=== PATIENT | female | born 1975 | race Caucasian/White ===

== ENCOUNTER 2016-08-08 17:08 | Observation (INO) | payer MEDICARE, OTHER ==
[2016-08-08] MEDS ORDERED: NITROGLYCERIN OINT 1 INCH/GM PACKET TOPICAL STA (17:39)
[2016-08-08] MEDS ORDERED: NITROGLYCERIN SL TABS 0.4 MG TAB SUBLINGUAL STA (17:39)
[2016-08-08] MEDS ORDERED: ASPIRIN 81 MG CHEW PO STA (17:39)
--- NOTE | 2016-08-08 17:44 | ED ---
Chest Pain HPI - General Chief Complaint: Chest Pain Stated Complaint: chest pain Time Seen by Provider: 08/08/16 17:16 Source: patient Mode of arrival: ambulatory Limitations: no limitations - History of Present Illness Initial Comments: This patient is a 40-year-old woman with history of previous coronary artery disease who presents with chest pain that is been going on since this morning. The patient states she has been having what she is referring to his anginal episodes a couple of times a day for nearly 1 week. She states she had pain recurred this morning and it has been present for the whole day. The pain is left chest, constant, aching, was about 8 out of 10. She states that the pain improved to between 2-4 out of 10 following the nitroglycerin. The patient has had some associated dyspnea. MD Complaint: chest pain Onset/Timin -: hour(s) Onset: during rest Pain Location: left chest Pain Radiation: none Severity scale (1-10): 8 Quality: aching Consistency: constant Improves With: nitroglycerin Worsens With: nothing Anginal Symptoms: dyspnea Treatments Prior to Arrival: nitroglycerin - Related Data Home Medications Medication Instructions Recorded Confirmed Aspirin 325 mg PO DAILY 08/08/16 08/08/16 Atorvastatin [Lipitor] 80 mg PO DAILY 08/08/16 08/08/16 HYDROcodone/APAP 10-325MG [[place] 1 tab PO TID PRN 08/08/16 08/08/16 10-325] Previous Rx's Medication Instructions Recorded Ticagrelor [Brilinta] 90 mg PO BID #60 tab 03/04/15 Allergies Allergy/AdvReac Type Severity Reaction Status Date / Time moxifloxacin HCl Allergy Rash/Hives Verified 08/08/16 17:34 [From Avelox] Review of Systems ROS Statement: Those systems with pertinent positive or pertinent negative responses have been documented in the HPI. ROS Other: All systems not noted in ROS Statement are negative. Constitutional: Denies: fever, chills Respiratory: Reports: dyspnea. Denies: cough, wheezes, hemoptysis Cardiovascular: Reports: chest pain. Denies: palpitations, dyspnea on exertion , orthopnea, edema, syncope Gastrointestinal: Denies: abdominal pain, nausea, vomiting Genitourinary: Denies: dysuria, hematuria Musculoskeletal: Denies: back pain Skin: Denies: rash Neurological: Denies: headache, weakness, numbness EKG Findings - EKG Results: EKG: interpreted by ERMD, sinus rhythm (Rate 90 bpm), normal axis, normal ST/T - SC, Pacemaker, Normal: Myocardial infarction: anterior SC (old age or indeterminate) (EKG shows possible old anterior infarct) Past Medical History Past Medical History: Coronary Artery Disease (CAD), Chest Pain / Angina, Fibromyalgia, GERD/Reflux, Hyperlipidemia, Myocardial Infarction ([place]), Osteoarthritis (OA), Pneumonia Additional Past Medical History / Comment(s): [place] X2, severe CAD, lumbar DDD, lumbar facet arthropathy, low back pain, obesity, arthiritis, past medical records indicate HTN and migraines but pt denies. Last Myocardial Infarction Date:: 03/02/15 History of Any Multi-Drug Resistant Organisms: None Reported Past Surgical History: Heart Catheterization, Heart Catheterization With Stent Additional Past Surgical History / Comment(s): 03/03/15 PTCA with stent to RCA. Other SX HX: 2003 LAD stent, 2008 RCA with 3 stents, 2008 PDA stent, 2009 CX stent, 2010 proximal diag stent, 2012 OM stent, 2014 stent 2 to RCA ,several PAIN CLINIC PROCEDURES Past Anesthesia/Blood Transfusion Reactions: No Reported Reaction Date of Last Stent Placement:: 03/03/15 Past Psychological History: Anxiety, Bipolar, Depression Additional Psychological History / Comment(s): Pt lives with boyfriend. She is independent. She uses no assistive devices or ome care. She drives. Smoking Status: Former smoker Past Alcohol Use History: Occasional Additional Past Alcohol Use History / Comment(s): Pt states she started smoking in 1988 and smokes about 1 ppd. She occasionally drinks alcohol, less that 7 per week. Past Drug Use History: None Reported - Past Family History Mother Family Medical History: Coronary Artery Disease (CAD), Fibromyalgia, Hyperlipidemia Additional Family Medical History / Comment(s): heart disease Father Family Medical History: CVA/TIA, Fibromyalgia, Hyperlipidemia, Hypertension, Musculoskeletal Disorder Additional Family Medical History / Comment(s): MS Sister(s) History Unknown: Yes (Patient has 1 sister with alive and well. Patient has 3 children that are alive and well.) General Exam Limitations: no limitations General appearance: alert, in no apparent distress Head exam: Present: atraumatic, normocephalic Eye exam: Present: normal appearance. Absent: scleral icterus, conjunctival injection ENT exam: Present: normal oropharynx Neck exam: Present: normal inspection, full ROM Respiratory exam: Present: normal lung sounds bilaterally. Absent: respiratory distress, wheezes, rales, rhonchi, stridor Cardiovascular Exam: Present: regular rate, normal rhythm, normal heart sounds. Absent: systolic murmur, diastolic murmur, rubs, gallop GI/Abdominal exam: Present: soft. Absent: distended, tenderness, guarding, rebound, mass Extremities exam: Present: normal inspection, normal capillary refill. Absent: pedal edema, calf tenderness Back exam: Absent: CVA tenderness (R), CVA tenderness (L) Neurological exam: Present: alert Skin exam: Present: warm, dry, intact, normal color. Absent: rash, cyanosis, diaphoretic, erythema, petechiae, pallor, mottled Course Vital Signs 08/08/16 08/08/16 08/08/16 17:13 17:27 17:50 Temperature 98.0 F Pulse Rate 97 89 Pulse Rate [ 94 Right Radial] Respiratory 18 18 Rate Blood Pressure 140/95 121/84 O2 Sat by Pulse 98 98 Oximetry Disposition Clinical Impression: Chest pain Disposition: ADMITTED IP TO THIS HOSP Condition: Fair
[2016-08-08 17:52] LABS: Basophils # (A) 0.1 k/uL (0-0.2); Basophils % (A) 1 %; CH 32.6; CHCM 34.6; Eosinophils # (A) 0.2 k/uL (0-0.7); Eosinophils % (A) 1 %; HCT 43.9 % (34.0-46.0); HDW 2.38; HGB 14.6 gm/dL (11.4-16.0); Luc # (Auto) 0.15; Luc % (Auto) 1; Lymphocytes # (A) 2.3 k/uL (1.0-4.8); Lymphocytes % (A) 16 %; MCH 31.5 pg (25.0-35.0); MCHC 33.2 g/dL (31.0-37.0); MCV 94.8 fL (80.0-100.0); Monocytes # (A) 0.7 k/uL (0-1.0); Monocytes % (A) 5 %; Neutrophils # (A) 10.8 k/uL (1.3-7.7); Neutrophils % (A) 76 %; RBC 4.64 m/uL (3.80-5.40); RDW 13.8 % (11.5-15.5); WBC 14.2 k/uL (3.8-10.6); WBC (Perox) 14.57
[2016-08-08 17:57] LABS: ALT 42 U/L (9-52); AST 22 U/L (14-36); Alkaline Phosphatase 110 U/L (38-126); Anion Gap 11 mmol/L; Blood Urea Nitrogen 11 mg/dL (7-17); Calcium 9.7 mg/dL (8.4-10.2); Carbon Dioxide 25 mmol/L (22-30); Chloride 102 mmol/L (98-107); Glucose 117 mg/dL (74-99); Magnesium 1.7 mg/dL (1.6-2.3); Non-African American GFR(MDRD) >60 (>60 ml/min/1.73 sqM); Potassium 3.7 mmol/L (3.5-5.1); Sodium 138 mmol/L (137-145); Total Bilirubin 0.5 mg/dL (0.2-1.3); Total Protein 7.5 g/dL (6.3-8.2)
[2016-08-08 18:12] LABS: Creatine Kinase 46 U/L (30-135)
[2016-08-08 18:14] LABS: INR 0.9 (<1.1); Partial Thromboplastin Time 23.5 sec (22.0-30.0); Prothrombin Time 9.5 sec (9.0-12.0)
--- NOTE | 2016-08-08 18:21 | XR ---
EXAMINATION TYPE: XR chest 1V portable DATE OF EXAM: 08/08/2016 6:11 PM COMPARISON: 10/02/2013 HISTORY: Chest pain TECHNIQUE: Single frontal view of the chest is obtained. FINDINGS: Heart and mediastinum are normal. Lungs are clear. Diaphragm is normal. Bony thorax and so ft tissues appear normal. IMPRESSION: Normal chest. No change.
[2016-08-08 18:25] LABS: Creatine Kinase MB 0.5 ng/mL (0.0-2.4); Troponin I <0.012 ng/mL (0.000-0.034)
[2016-08-08] MEDS ORDERED: NITROGLYCERIN SL TABS 0.4 MG TAB SUBLINGUAL PRN (18:38)
[2016-08-08] MEDS: HYDROcodone/APAP 10-325MG 1 EACH TAB PO PRN (20:25)
[2016-08-08] MEDS: TICAGRELOR 90 MG TAB PO SCH (20:26)
[2016-08-08] MEDS ORDERED: ATORVASTATIN 80 MG TAB PO SCH (21:00)
[2016-08-09 00:28] LABS: Creatine Kinase 32 U/L (30-135)
[2016-08-09 00:41] LABS: Creatine Kinase MB 0.4 ng/mL (0.0-2.4); Troponin I <0.012 ng/mL (0.000-0.034)
[2016-08-09] MEDS: HYDROcodone/APAP 10-325MG 1 EACH TAB PO PRN ×2 (05:35→13:48)
[2016-08-09 05:58] LABS: Cholesterol 182 mg/dL (<200); Creatine Kinase 30 U/L (30-135); HDL Cholesterol 46 mg/dL (40-60); Triglycerides 114 mg/dL (<150)
[2016-08-09 06:11] LABS: Creatine Kinase MB 0.3 ng/mL (0.0-2.4); Troponin I <0.012 ng/mL (0.000-0.034)
--- NOTE | 2016-08-09 08:52 | P.CRDCN ---
History of Present Illness Consult date: 08/09/16 Chief complaint: Chest discomfort History of present illness: This is a pleasant 40-year-old female patient who sees Dr. VC Correia as an outpatient with a past medical history significant for coronary artery disease and prior stenting of the RCA, left circumflex, and LAD, hypertension, dyslipidemia, and history of smoking, presented to the hospital complaining of chest discomfort. She describes a one week history of intermittent episodes of chest discomfort, in the mid of the chest, as a pressure on the chest, without any radiation and without any associated symptoms. Each episode lasts about 1 minute only. She stated that the discomfort in a way similar to what she had before the stent and sometimes is different from what she had before the stent. The EKG showed sinus mechanism without any significant ST or T-wave abnormalities. The cardiac enzymes came in to be unremarkable. I am going to proceed with an exercise Cardiolite stress test and follow-up with the patient. Past Medical History Past Medical History: Coronary Artery Disease (CAD), Chest Pain / Angina, Fibromyalgia, GERD/Reflux, Hyperlipidemia, Myocardial Infarction ([place]), Osteoarthritis (OA), Pneumonia Additional Past Medical History / Comment(s): [place] X2, severe CAD, lumbar DDD, lumbar facet arthropathy, low back pain, obesity, arthiritis,occ migraine, past medical records indicate HTN but pt denies. Last Myocardial Infarction Date:: 03/02/15 History of Any Multi-Drug Resistant Organisms: None Reported Past Surgical History: Heart Catheterization, Heart Catheterization With Stent Additional Past Surgical History / Comment(s): 03/03/15 PTCA with stent to RCA. Other SX HX: 2003 LAD stent, 2008 RCA with 3 stents, 2008 PDA stent, 2009 CX stent, 2010 proximal diag stent, 2012 OM stent, 2014 stent 2 to RCA ,several PAIN CLINIC PROCEDURES Past Anesthesia/Blood Transfusion Reactions: No Reported Reaction Date of Last Stent Placement:: 03/03/15 Past Psychological History: Anxiety, Bipolar, Depression Additional Psychological History / Comment(s): Pt lives with boyfriend. She is independent. She uses no assistive devices or ome care. She drives. Smoking Status: Former smoker Past Alcohol Use History: Occasional Additional Past Alcohol Use History / Comment(s): Pt states she started smoking in 1988 and smoked about 1 ppd-quit may 2016. She occasionally drinks alcohol, less that 7 per week. Past Drug Use History: None Reported - Past Family History Mother Family Medical History: Coronary Artery Disease (CAD), Fibromyalgia, Hyperlipidemia Additional Family Medical History / Comment(s): heart disease Father Family Medical History: CVA/TIA, Fibromyalgia, Hyperlipidemia, Hypertension, Musculoskeletal Disorder Additional Family Medical History / Comment(s): MS Sister(s) History Unknown: Yes Medications and Allergies Home Medications Medication Instructions Recorded Confirmed Type Aspirin 325 mg PO DAILY 08/08/16 08/08/16 History Atorvastatin [Lipitor] 80 mg PO DAILY 08/08/16 08/08/16 History HYDROcodone/APAP 10-325MG [[place] 1 tab PO TID PRN 08/08/16 08/08/16 History 10-325] Allergies Allergy/AdvReac Type Severity Reaction Status Date / Time moxifloxacin HCl Allergy Rash/Hives Verified 08/08/16 17:34 [From Avelox] Physical Exam Vitals: Vital Signs Temp Pulse Pulse Pulse Resp BP BP 08/09/16 08:00 98.0 F 70 14 101/55 08/09/16 04:00 97.6 F 69 16 08/09/16 03:40 72 16 08/09/16 00:00 67 16 08/08/16 20:30 97.7 F 85 16 08/08/16 20:00 73 16 08/08/16 18:50 75 18 100/66 BP Pulse Ox 08/09/16 08:00 96 08/09/16 04:00 119/58 96 08/09/16 03:40 08/09/16 00:00 106/68 97 08/08/16 20:30 117/76 95 08/08/16 20:00 08/08/16 18:50 98 Intake and Output 08/08/16 08/09/16 08/09/16 22:59 06:59 14:59 Other: Voiding Method Toilet Toilet # Voids 2 2 - Constitutional General appearance: no acute distress - Respiratory Respiratory: bilateral: CTA - Cardiovascular Rhythm: regular Heart sounds: normal: S1, S2 Results 08/08/16 17:28 08/08/16 17:28 Cardiac Enzymes 08/08/16 08/09/16 Range/Units 23:46 05:26 CK-MB (CK-2) 0.4 0.3 (0.0-2.4) ng/mL Troponin I <0.012 <0.012 (0.000-0.034) ng/mL Lipids 08/09/16 Range/Units 05:26 Triglycerides 114 (<150) mg/dL Cholesterol 182 (<200) mg/dL HDL Cholesterol 46 (40-60) mg/dL Current Medications Generic Name Dose Route Start Last Admin Trade Name Freq PRN Reason Stop Dose Admin Acetaminophen/Hydrocodone Bitart 1 each 08/08/16 18:40 08/09/16 05:35 [place] 10 PO 1 each TID PRN Administration Pain Aspirin 81 mg 08/09/16 09:00 Aspirin PO DAILY PALMA Atorvastatin Calcium 80 mg 08/08/16 21:00 08/08/16 21:12 Lipitor PO 80 mg HS PALMA Administration Sodium Chloride 1,000 mls @ 100 mls/hr 08/08/16 18:45 Saline 0.9% IV .Q10H PALMA Nitroglycerin 0.4 mg 08/08/16 18:38 Nitrostat SUBLINGUAL Q5M PRN Chest Pain Ticagrelor 90 mg 08/08/16 21:00 08/08/16 20:26 Brilinta PO 90 mg BID PALMA Administration Intake and Output 08/08/16 08/09/16 08/09/16 22:59 06:59 14:59 Other: Voiding Method Toilet Toilet # Voids 2 2 Assessment and Plan Plan: Assessment #1 intermittent episodes of chest discomfort #2 known history of CAD with prior triple-vessel stenting #3 multiple risk factors for CAD Plan #1 proceeding with an exercise Cardiolite #2 follow-up with the patient
[2016-08-09] MEDS ORDERED: ATORVASTATIN 80 MG TAB PO SCH (09:00)
[2016-08-09] MEDS ORDERED: ASPIRIN 81 MG CHEW PO SCH (09:00)
[2016-08-09] MEDS ORDERED: ASPIRIN 325 MG TAB PO SCH ×2 (09:00)
[2016-08-09] MEDS: TICAGRELOR 90 MG TAB PO SCH (11:23)
--- NOTE | 2016-08-09 11:33 | NM ---
EXAMINATION TYPE: NM stress cardiolite complete DATE OF EXAM: 08/09/2016 11:24 AM COMPARISON: NONE HISTORY: Chest pain TECHNIQUE: After the intravenous administration of 11 mCi Tc 99m Sestamibi - Rest images obtained 45 minutes post injection. The patient exercised using a CHRISTIAN protocol and 1 minute prior to peak ex ercise was injected with 27.5 mCi Tc 99m Sestamibi - Stress images obtained 14 minutes post injection . FINDINGS: Targeted heart rate was achieved during performance of the study. Review of stress and rest SPECT arnold ges demonstrates no distinct perfusion abnormality. Gated analysis shows normal wall motion with an estimated left ventricular ejection fraction of 61 %. There is diminished radiotracer accumulation along the anterior wall extending from the midportion to the cardiac apex on both resting and stress images. This appears fixed in can be compatible with annabel or infarct. Artifact is not identified. IMPRESSION: Correlate for prior infarct along the anterior wall. No stress-induced ischemic changes are identifie d.
[2016-08-09 12:02] VITALS: BP 108/68; PULSE 75; RESP 16; TEMP 96.6
--- NOTE | 2016-08-09 12:10 | EST ---
DATE OF SERVICE: 08/09/2016 AGE: 40Y SEX: F HT: 5'2" WT: 180 lbs. Protocol Michael: X Other: Stress Cardiolite Stage: 3 Dur. of Exercise: 7:10 *Heart Rate Blood Pressure *Rest: 77 Rest: 104/69 * *Max. Achieved: 145 Maximum BP: 143/75 85% PMHR: 153 100% PMHR: 180 *METS: 6.7 INDICATIONS: Chest pain. MEDICATIONS: - Baseline EKG revealed normal sinus rhythm with poor R-wave progression over the precordial leads. Patient walked on standard Michael protocol for 7 minutes 10 seconds, achieved a maximum heart rate of 145 beats per minute, which is about 80% of her predicted maximal heart rate, she developed some back discomfort and also had shortness of breath, but did not have any angina. EKG had a lot of artifact making it very difficult to interpret; however, the first interpretable EKG was 33 seconds into the recovery period and this did not reveal any ischemic changes. Heart rate was about 124 beats per minute. By EKG criteria, this is an inconclusive stress test because of inadequate chronotropic response and a lot of baseline artifact. The nuclear scan results, which are more pertinent, will be reported by the radiologist. Patient achieved only 80% of her predicted maximum heart rate.
--- NOTE | 2016-08-09 14:42 | P.HPIM ---
History of Present Illness H&P Date: 08/09/16 Chief Complaint: Chest pain This is a medical H&P and discharge summary combined: Patient is a 40-year-old female, patient of Dr. Rodriguez in the outpatient setting, with medical history significant for severe coronary artery disease with stent placement of the RCA, left circumflex, and LAD, fibromyalgia , GERD, dyslipidemia, myocardial infarction, osteoporosis, and lumbar degenerative disc disease. Patient presented to the emergency department with complaints of chest discomfort 1 week lasting approximately 1 minute. EKG with normal sinus rhythm without any significant ST or T-wave abnormalities, troponins negative 3. Patient was seen and evaluated by cardiology and underwent an exercise Cardiolite stress test without evidence of stressed induced ischemia. Patient was felt stable for discharge to home with follow-up in the outpatient setting as directed. Past Medical History Past Medical History: Coronary Artery Disease (CAD), Chest Pain / Angina, Fibromyalgia, GERD/Reflux, Hyperlipidemia, Myocardial Infarction ([place]), Osteoarthritis (OA), Pneumonia Additional Past Medical History / Comment(s): [place] X2, severe CAD, lumbar DDD, lumbar facet arthropathy, low back pain, obesity, arthiritis,occ migraine, past medical records indicate HTN but pt denies. Last Myocardial Infarction Date:: 03/02/15 History of Any Multi-Drug Resistant Organisms: None Reported Past Surgical History: Heart Catheterization, Heart Catheterization With Stent Additional Past Surgical History / Comment(s): 03/03/15 PTCA with stent to RCA. Other SX HX: 2003 LAD stent, 2008 RCA with 3 stents, 2008 PDA stent, 2009 CX stent, 2010 proximal diag stent, 2012 OM stent, 2014 stent 2 to RCA ,several PAIN CLINIC PROCEDURES Past Anesthesia/Blood Transfusion Reactions: No Reported Reaction Date of Last Stent Placement:: 03/03/15 Past Psychological History: Anxiety, Bipolar, Depression Additional Psychological History / Comment(s): Pt lives with boyfriend. She is independent. She uses no assistive devices or ome care. She drives. Smoking Status: Former smoker Past Alcohol Use History: Occasional Additional Past Alcohol Use History / Comment(s): Pt states she started smoking in 1988 and smoked about 1 ppd-quit may 2016. She occasionally drinks alcohol, less that 7 per week. Past Drug Use History: None Reported - Past Family History Mother Family Medical History: Coronary Artery Disease (CAD), Fibromyalgia, Hyperlipidemia Additional Family Medical History / Comment(s): heart disease Father Family Medical History: CVA/TIA, Fibromyalgia, Hyperlipidemia, Hypertension, Musculoskeletal Disorder Additional Family Medical History / Comment(s): MS Sister(s) History Unknown: Yes Medications and Allergies Home Medications Medication Instructions Recorded Confirmed Type Aspirin 325 mg PO DAILY 08/08/16 08/08/16 History Atorvastatin [Lipitor] 80 mg PO DAILY 08/08/16 08/08/16 History HYDROcodone/APAP 10-325MG [[place] 1 tab PO TID PRN 08/08/16 08/08/16 History 10-325] Allergies Allergy/AdvReac Type Severity Reaction Status Date / Time moxifloxacin HCl Allergy Rash/Hives Verified 08/08/16 17:34 [From Avelox] Physical Exam Vitals: Vital Signs Temp Pulse Pulse Pulse Resp BP BP 08/09/16 12:00 96.6 F L 75 16 08/09/16 08:00 98.0 F 70 14 101/55 08/09/16 04:00 97.6 F 69 16 08/09/16 03:40 72 16 08/09/16 00:00 67 16 08/08/16 20:30 97.7 F 85 16 08/08/16 20:00 73 16 08/08/16 18:50 75 18 100/66 BP Pulse Ox 08/09/16 12:00 108/68 98 08/09/16 08:00 96 08/09/16 04:00 119/58 96 08/09/16 03:40 08/09/16 00:00 106/68 97 08/08/16 20:30 117/76 95 08/08/16 20:00 08/08/16 18:50 98 Intake and Output 08/08/16 08/09/16 08/09/16 22:59 06:59 14:59 Intake Total 120 Balance 120 Intake: Oral 120 Other: Voiding Method Toilet Toilet Toilet # Voids 2 2 GENERAL: Pt awake and alert, well-appearing, well-nourished, and in no acute distress. HEAD: Atraumatic, normocephalic. EYES: Pupils equal, round, and reactive to light, extraocular movements intact, sclera anicteric, conjunctiva are normal. ENT: Moist mucous membranes. NECK:Supple without lymphadenopathy or JVD. LUNGS: Breath sounds clear to auscultation bilaterally. No wheezes, rales, or rhonchi. HEART: Heart S1, S2, no S3 or S4. Regular rate and rhythm. No murmurs, rubs or gallops. ABDOMEN: Soft, obese, nontender, nondistended, normoactive bowel sounds. No guarding, no rebound. No masses or organomegaly appreciated. EXTREMITIES: 2+ peripheral pulses. No edema. No calf tenderness. NEUROLOGICAL: Pt oriented x 3. Cranial nerves II through XII grossly intact. Strength and sensation grossly intact. PSYCH: Normal mood, normal affect. SKIN: Warm, dry, intact. Normal turgor. No rashes or lesions. Results CBC & Chem 7: 08/08/16 17:28 08/08/16 17:28 Labs: Abnormal Lab Results - Last 24 Hours (Table) 08/09/16 Range/Units 05:26 LDL Cholesterol, Calc 113 H (0-99) mg/dL Chest x-ray: report reviewed (Normal chest) Thrombosis Risk Factor Assmnt - DVT/VTE Prophylaxis DVT/VTE Prophylaxis: Low risk, early ambulation encouraged - Choose All That Apply Any of the Below Risk Factors Present?: Yes Each Factor Represents 1 point: Obesity (BMI >25) Other Risk Factors: No Other congenital or acquired thrombophilia - If yes, enter type in comment: No Thrombosis Risk Factor Assessment Total Risk Factor Score: 1 Thrombosis Risk Factor Assessment Level: Low Risk Assessment and Plan Plan: Impression and discharge plan: 1. Atypical chest pain. Cardiolite stress test negative for ischemia. Troponins negative 3. 2. Leukocytosis, present on admission, suspect reactive. 3. Dyslipidemia. 4. Coronary artery disease with multiple stent placements. 5. History of fibromyalgia. 6. History of GERD. 7. Obesity, BMI 32.9. 8. History of lumbar degenerative disc disease. 9. History of osteoarthritis. 10. Chronic low back pain. 11. History of anxiety, bipolar, and depression, stable. 12. History of nicotine dependence. Plan: From a medical and cardiology standpoint, patient is stable for discharge to home with close follow-up in the outpatient setting. The above impression and plan have been discussed and directed by Dr. Rodriguez. Anila MARIE acting as scribe for Dr. Rodriguez.
[2016-08-09] MEDS: SODIUM CHLORIDE 0.9% 1,000 ML IV SCH ×2 (14:58→14:59)
== END 2016-08-09 14:55 | disposition home or self-care (01) ==
LOC: EC 17:08 → 3OBS 18:40
PROVIDERS: ADMIT Family Medicine; ATTEND Family Medicine
DX: R07.89 Other chest pain (principal); D72.829 Elevated white blood cell count, unspecified; E78.5 Hyperlipidemia, unspecified; I25.10 Atherosclerotic heart disease of native coronary artery without angina pectoris; M79.7 Fibromyalgia; K21.9 Gastro-esophageal reflux disease without esophagitis; E66.9 Obesity, unspecified; Z68.32 Body mass index [BMI] 32.0-32.9, adult; M51.36 Other intervertebral disc degeneration, lumbar region; M19.90 Unspecified osteoarthritis, unspecified site; I25.2 Old myocardial infarction; M54.5 Low back pain; G89.29 Other chronic pain; F41.9 Anxiety disorder, unspecified; F31.9 Bipolar disorder, unspecified; Z79.82 Long term (current) use of aspirin; Z79.899 Other long term (current) drug therapy; Z88.1 Allergy status to other antibiotic agents; Z95.5 Presence of coronary angioplasty implant and graft; Z87.891 Personal history of nicotine dependence; Z82.49 Family history of ischemic heart disease and other diseases of the circulatory system; Z82.3 Family history of stroke
CPT/HCPCS: 36415; 93005; 93017; 85379; 80061; 80053; 82550 ×2; 82553 ×2; 83735; 84484 ×2; 85025; 85610; 85730; 71010; 78452; 99285; G0378 ×2; A9500

== ENCOUNTER 2016-08-13 06:28 | Inpatient (IN) | payer MEDICARE, OTHER, SELFPAY ==
[2016-08-13] MEDS ORDERED: NITROGLYCERIN SL TABS 0.4 MG TAB SUBLINGUAL STA ×3 (07:34)
[2016-08-13] MEDS ORDERED: NITROGLYCERIN OINT 1 INCH/GM PACKET TOPICAL STA (07:34)
--- NOTE | 2016-08-13 07:46 | ED ---
General Adult HPI - General Chief complaint: Chest Pain Stated complaint: Chest Pain Time Seen by Provider: 08/13/16 07:00 Source: patient, RN notes reviewed Mode of arrival: EMS Limitations: no limitations - History of Present Illness Initial comments: This is a 40-year-old female presents to the emergency department complaining of chest pain. Patient states she's had multiple stents in the past. Patient states she's had 3 heart attacks. Patient states the pain started 2 hours ago. Patient states it radiates all over her chest into her back and down her arm and into her jaw. Patient states she's also short of breath and diaphoretic. Patient states she is not nauseated or vomiting. Patient denies abdominal pain. Patient states she had similar pain 2 days ago she was seen in the hospital Overnight and was discharged home. Patient denies any headache patient denies numbness weakness. Patient denies any lower back pain. Patient denies any recent fever chills or cough. Patient denies any recent injury or trauma. Patient is requesting pain medicines. When I initially walk by the room on 2 different occasions patient was lying there sleeping and it did not appear in any distress however upon entering the room the patient started moaning and groaning and rocking [id number] and demanding pain medication. - Related Data Home Medications Medication Instructions Recorded Confirmed Aspirin 325 mg PO DAILY 08/08/16 08/08/16 Atorvastatin [Lipitor] 80 mg PO DAILY 08/08/16 08/08/16 HYDROcodone/APAP 10-325MG [[place] 1 tab PO TID PRN 08/08/16 08/08/16 10-325] Previous Rx's Medication Instructions Recorded Ticagrelor [Brilinta] 90 mg PO BID #60 tab 03/04/15 Allergies Allergy/AdvReac Type Severity Reaction Status Date / Time moxifloxacin HCl Allergy Rash/Hives Verified 08/08/16 17:34 [From Avelox] Review of Systems ROS Statement: Those systems with pertinent positive or pertinent negative responses have been documented in the HPI. ROS Other: All systems not noted in ROS Statement are negative. Past Medical History Past Medical History: Coronary Artery Disease (CAD), Chest Pain / Angina, Fibromyalgia, GERD/Reflux, Hyperlipidemia, Myocardial Infarction ([place]), Osteoarthritis (OA), Pneumonia Additional Past Medical History / Comment(s): [place] X2, severe CAD, lumbar DDD, lumbar facet arthropathy, low back pain, obesity, arthiritis,occ migraine, past medical records indicate HTN but pt denies. Last Myocardial Infarction Date:: 03/02/15 History of Any Multi-Drug Resistant Organisms: None Reported Past Surgical History: Heart Catheterization, Heart Catheterization With Stent Additional Past Surgical History / Comment(s): 03/03/15 PTCA with stent to RCA. Other SX HX: 2003 LAD stent, 2008 RCA with 3 stents, 2008 PDA stent, 2009 CX stent, 2010 proximal diag stent, 2012 OM stent, 2014 stent 2 to RCA ,several PAIN CLINIC PROCEDURES Past Anesthesia/Blood Transfusion Reactions: No Reported Reaction Date of Last Stent Placement:: 03/03/15 Past Psychological History: Anxiety, Bipolar, Depression Additional Psychological History / Comment(s): Pt lives with boyfriend. She is independent. She uses no assistive devices or ome care. She drives. Smoking Status: Former smoker Past Alcohol Use History: Occasional Additional Past Alcohol Use History / Comment(s): Pt states she started smoking in 1988 and smoked about 1 ppd-quit may 2016. She occasionally drinks alcohol, less that 7 per week. Past Drug Use History: None Reported - Past Family History Mother Family Medical History: Coronary Artery Disease (CAD), Fibromyalgia, Hyperlipidemia Additional Family Medical History / Comment(s): heart disease Father Family Medical History: CVA/TIA, Fibromyalgia, Hyperlipidemia, Hypertension, Musculoskeletal Disorder Additional Family Medical History / Comment(s): MS Sister(s) History Unknown: Yes General Exam - General Exam Comments Initial Comments: GENERAL: Patient is well-developed and well-nourished. Patient is nontoxic and well- hydrated and is in mild distress. ENT: Neck is soft and supple. No significant lymphadenopathy is noted. Oropharynx is clear. Moist mucous membranes. Neck has full range of motion without eliciting any pain. EYES: The sclera were anicteric and conjunctiva were pink and moist. Extraocular movements were intact and pupils were equal round and reactive to light. Eyelids were unremarkable. PULMONARY: Unlabored respirations. Good breath sounds bilaterally. No audible rales rhonchi or wheezing was noted. CARDIOVASCULAR: There is a regular rate and rhythm without any murmurs gallops or rubs. ABDOMEN: Soft and nontender with normal bowel sounds. No palpable organomegaly was noted. There is no palpable pulsatile mass. SKIN: Skin is clear with no lesions or rashes and otherwise unremarkable. NEUROLOGIC: Patient is alert and oriented x3. Cranial nerves II through XII are grossly intact. Motor and sensory are also intact. Normal speech, volume and content. Symmetrical smile. MUSCULOSKELETAL: Normal extremities with adequate strength and full range of motion. No lower extremity swelling or edema. No calf tenderness. LYMPHATICS: No significant lymphadenopathy is noted PSYCHIATRIC: Normal psychiatric evaluation. Limitations: no limitations Course Vital Signs 08/13/16 06:47 Temperature 96.9 F L Pulse Rate 87 Respiratory 18 Rate Blood Pressure 128/82 O2 Sat by Pulse 94 L Oximetry Medical Decision Making - Medical Decision Making EKG shows normal sinus rhythm at 70 bpm. It was on a 74 QRS is 98 QT interval is 438 QTC is 473. Patient's EKG shows some T-wave inversions in leads 2 and aVF. Chest x-ray is normal I went back into the room patient was sleeping I woke the patient she told me her chest was still in quite a bit of pain. Patient's had 3 heart attacks in the past and has significant chest pain and she was diaphoretic so I started the patient on heparin I consulted cardiology I wrote admitting orders I spoke with Dr. Rodriguez. - Lab Data Result diagrams: 08/13/16 07:00 08/13/16 07:00 Lab Results 08/13/16 08/13/16 08/13/16 Range/Units 07:00 07:00 07:00 WBC 10.0 (3.8-10.6) k/uL RBC 3.99 (3.80-5.40) m/uL Hgb 12.7 (11.4-16.0) gm/dL Hct 37.4 (34.0-46.0) % MCV 93.7 (80.0-100.0) fL MCH 31.8 (25.0-35.0) pg MCHC 33.9 (31.0-37.0) g/dL RDW 13.8 (11.5-15.5) % Plt Count 306 (150-450) k/uL Neutrophils % 48 % Lymphocytes % 41 % Monocytes % 5 % Eosinophils % 3 % Basophils % 1 % Neutrophils # 4.8 (1.3-7.7) k/uL Lymphocytes # 4.1 (1.0-4.8) k/uL Monocytes # 0.5 (0-1.0) k/uL Eosinophils # 0.3 (0-0.7) k/uL Basophils # 0.1 (0-0.2) k/uL PT (9.0-12.0) sec INR (<1.1) APTT (22.0-30.0) sec Sodium 137 (137-145) mmol/L Potassium 3.8 (3.5-5.1) mmol/L Chloride 104 (98-107) mmol/L Carbon Dioxide 23 (22-30) mmol/L Anion Gap 10 mmol/L BUN 17 (7-17) mg/dL Creatinine 1.04 (0.52-1.04) mg/dL Est GFR (MDRD) Af Amer >60 (>60 ml/min/1.73 sqM) Est GFR (MDRD) Non-Af 59 (>60 ml/min/1.73 sqM) Glucose 118 H (74-99) mg/dL Calcium 8.4 (8.4-10.2) mg/dL Magnesium 1.8 (1.6-2.3) mg/dL Total Bilirubin 0.3 (0.2-1.3) mg/dL AST 24 (14-36) U/L ALT 39 (9-52) U/L Alkaline Phosphatase 94 (38-126) U/L Total Creatine Kinase 34 (30-135) U/L CK-MB (CK-2) 0.5 (0.0-2.4) ng/mL CK-MB (CK-2) Rel Index 1.5 Troponin I <0.012 (0.000-0.034) ng/mL Total Protein 6.0 L (6.3-8.2) g/dL Albumin 3.3 L (3.5-5.0) g/dL 08/13/16 Range/Units 07:00 WBC (3.8-10.6) k/uL RBC (3.80-5.40) m/uL Hgb (11.4-16.0) gm/dL Hct (34.0-46.0) % MCV (80.0-100.0) fL MCH (25.0-35.0) pg MCHC (31.0-37.0) g/dL RDW (11.5-15.5) % Plt Count (150-450) k/uL Neutrophils % % Lymphocytes % % Monocytes % % Eosinophils % % Basophils % % Neutrophils # (1.3-7.7) k/uL Lymphocytes # (1.0-4.8) k/uL Monocytes # (0-1.0) k/uL Eosinophils # (0-0.7) k/uL Basophils # (0-0.2) k/uL PT 10.1 (9.0-12.0) sec INR 1.0 (<1.1) APTT 18.8 L (22.0-30.0) sec Sodium (137-145) mmol/L Potassium (3.5-5.1) mmol/L Chloride (98-107) mmol/L Carbon Dioxide (22-30) mmol/L Anion Gap mmol/L BUN (7-17) mg/dL Creatinine (0.52-1.04) mg/dL Est GFR (MDRD) Af Amer (>60 ml/min/1.73 sqM) Est GFR (MDRD) Non-Af (>60 ml/min/1.73 sqM) Glucose (74-99) mg/dL Calcium (8.4-10.2) mg/dL Magnesium (1.6-2.3) mg/dL Total Bilirubin (0.2-1.3) mg/dL AST (14-36) U/L ALT (9-52) U/L Alkaline Phosphatase (38-126) U/L Total Creatine Kinase (30-135) U/L CK-MB (CK-2) (0.0-2.4) ng/mL CK-MB (CK-2) Rel Index Troponin I (0.000-0.034) ng/mL Total Protein (6.3-8.2) g/dL Albumin (3.5-5.0) g/dL Critical Care Time Critical Care Time: Yes Total Critical Care Time: 35 Disposition Clinical Impression: Unstable angina pectoris Disposition: ADMITTED IP TO THIS [facility] Condition: Good Time of Disposition: 09:48
[2016-08-13 08:09] LABS: ALT 39 U/L (9-52); AST 24 U/L (14-36); Alkaline Phosphatase 94 U/L (38-126); Anion Gap 10 mmol/L; Basophils # (A) 0.1 k/uL (0-0.2); Basophils % (A) 1 %; Blood Urea Nitrogen 17 mg/dL (7-17); CH 32.4; CHCM 34.8; Calcium 8.4 mg/dL (8.4-10.2); Carbon Dioxide 23 mmol/L (22-30); Chloride 104 mmol/L (98-107); Eosinophils # (A) 0.3 k/uL (0-0.7); Eosinophils % (A) 3 %; Glucose 118 mg/dL (74-99); HCT 37.4 % (34.0-46.0); HDW 2.38; HGB 12.7 gm/dL (11.4-16.0); Luc # (Auto) 0.27; Luc % (Auto) 3; Lymphocytes # (A) 4.1 k/uL (1.0-4.8); Lymphocytes % (A) 41 %; MCH 31.8 pg (25.0-35.0); MCHC 33.9 g/dL (31.0-37.0); MCV 93.7 fL (80.0-100.0); Magnesium 1.8 mg/dL (1.6-2.3); Mean Platelet Volume 7.7; Monocytes # (A) 0.5 k/uL (0-1.0); Monocytes % (A) 5 %; Neutrophils # (A) 4.8 k/uL (1.3-7.7); Neutrophils % (A) 48 %; Non-African American GFR(MDRD) 59 (>60 ml/min/1.73 sqM); Potassium 3.8 mmol/L (3.5-5.1); RBC 3.99 m/uL (3.80-5.40); RDW 13.8 % (11.5-15.5); Sodium 137 mmol/L (137-145); Total Bilirubin 0.3 mg/dL (0.2-1.3); WBC (Perox) 10.19
[2016-08-13 08:14] LABS: Prothrombin Time 10.1 sec (9.0-12.0)
[2016-08-13] MEDS: MORPHINE SULFATE 2 MG/ML SYRINGE IVP STA ×2 (08:18→16:39)
[2016-08-13 08:19] LABS: Creatine Kinase 34 U/L (30-135)
[2016-08-13 08:21] LABS: Partial Thromboplastin Time 18.8 sec (22.0-30.0)
[2016-08-13 08:31] LABS: Creatine Kinase MB 0.5 ng/mL (0.0-2.4); Troponin I <0.012 ng/mL (0.000-0.034)
--- NOTE | 2016-08-13 08:56 | XR ---
EXAMINATION TYPE: XR chest 2V DATE OF EXAM: 08/13/2016 8:44 AM COMPARISON: 08/08/2016 INDICATION: Chest pain TECHNIQUE: Frontal and lateral views of the chest are obtained. FINDINGS: The heart size is normal. The pulmonary vasculature is normal. The lungs are clear. IMPRESSION: 1. No acute pulmonary process.
[2016-08-13] MEDS ORDERED: HEPARIN SODIUM,PORCINE 5,000 UNIT/ML 1 ML VIAL IV ONE (09:46)
[2016-08-13] MEDS ORDERED: NITROGLYCERIN SL TABS 0.4 MG TAB SUBLINGUAL PRN ×3 (09:48→21:15)
[2016-08-13] MEDS ORDERED: MORPHINE SULFATE 2 MG/ML SYRINGE IVP ONE (10:32)
--- NOTE | 2016-08-13 10:56 | P.HPIM ---
History of Present Illness H&P Date: 08/13/16 Chief Complaint: Chest pain Patient is a 40-year-old female with medical history significant for severe coronary artery disease with stent placement of the RCA, left circumflex , and LAD, fibromyalgia, GERD, dyslipidemia, myocardial infarction, osteoporosis , bipolar disorder, and lumbar degenerative disc disease. Patient presented to the emergency department with complaints of chest discomfort 2 weeks lasting approximately 6 hours EKG with normal sinus rhythm nonspecific ST abnormalities, troponins negative 1. Patient was seen and evaluated by cardiology on admission of August 08- and underwent an exercise Cardiolite stress test without evidence of stressed induced ischemia. Patient was felt stable for discharge to home with follow-up in the outpatient setting as directed. Emergency room physician indicates patient was diaphoretic on his evaluation. I discussed her case with Dr. Coffey who will come and evaluate her in the emergency room today. Review of Systems All systems: negative Cardiovascular: Reports as per HPI (Insomnia), Reports chest pain Past Medical History Past Medical History: Coronary Artery Disease (CAD), Chest Pain / Angina, Fibromyalgia, GERD/Reflux, Hyperlipidemia, Myocardial Infarction ([place]), Osteoarthritis (OA), Pneumonia Additional Past Medical History / Comment(s): [place] X2, severe CAD, lumbar DDD, lumbar facet arthropathy, low back pain, obesity, arthiritis,occ migraine, past medical records indicate HTN but pt denies. Last Myocardial Infarction Date:: 03/02/15 History of Any Multi-Drug Resistant Organisms: None Reported Past Surgical History: Heart Catheterization, Heart Catheterization With Stent Additional Past Surgical History / Comment(s): 03/03/15 PTCA with stent to RCA. Other SX HX: 2003 LAD stent, 2008 RCA with 3 stents, 2008 PDA stent, 2009 CX stent, 2010 proximal diag stent, 2012 OM stent, 2015 stent 2 to RCA ,several PAIN CLINIC PROCEDURES Past Anesthesia/Blood Transfusion Reactions: No Reported Reaction Date of Last Stent Placement:: 03/03/15 Past Psychological History: Anxiety, Bipolar, Depression Additional Psychological History / Comment(s): Pt lives with boyfriend. She is independent. She uses no assistive devices or ome care. She drives. Smoking Status: Former smoker Past Alcohol Use History: Occasional Additional Past Alcohol Use History / Comment(s): Pt states she started smoking in 1988 and smoked about 1 ppd-quit may 2016. She occasionally drinks alcohol, less that 7 per week. Past Drug Use History: None Reported - Past Family History Mother Family Medical History: Coronary Artery Disease (CAD), Fibromyalgia, Hyperlipidemia Additional Family Medical History / Comment(s): heart disease Father Family Medical History: CVA/TIA, Fibromyalgia, Hyperlipidemia, Hypertension, Musculoskeletal Disorder Additional Family Medical History / Comment(s): MS Sister(s) History Unknown: Yes Medications and Allergies Home Medications Medication Instructions Recorded Confirmed Type Aspirin 325 mg PO DAILY 08/08/16 08/08/16 History Atorvastatin [Lipitor] 80 mg PO DAILY 08/08/16 08/08/16 History HYDROcodone/APAP 10-325MG [[place] 1 tab PO TID PRN 08/08/16 08/08/16 History 10-325] Allergies Allergy/AdvReac Type Severity Reaction Status Date / Time moxifloxacin HCl Allergy Rash/Hives Verified 08/08/16 17:34 [From Avelox] Physical Exam GENERAL: Anxious, well-nourished and in no acute distress. HEAD: Atraumatic, normocephalic. EYES: Pupils equal round and reactive to light, extraocular movements intact, sclera anicteric, conjunctiva are normal. ENT:nares patent, oropharynx clear without exudates. Moist mucous membranes. NECK: Normal range of motion, supple without lymphadenopathy or JVD, no thyromegaly LUNGS: Breath sounds lightly coarse to auscultation bilaterally and equal. No wheezes rales or rhonchi. HEART: Regular rate and rhythm without murmurs, rubs or gallops.S1S2 Normal CHEST WALL: There is palpable pain to the midsternal and left chest where patient indicates pain. ABDOMEN: Soft, nontender, normoactive bowel sounds. No guarding, no rebound. No masses appreciated. EXTREMITIES: Normal range of motion, no pitting or edema. No clubbing or cyanosis. NEUROLOGICAL: Cranial nerves II through XII grossly intact. Normal speech, normal gait. PSYCH: Normal mood, normal affect. SKIN: Warm, Dry, normal turgor, no rashes or lesions noted. Results CBC & Chem 7: 08/13/16 07:00 08/13/16 07:00 Chest x-ray: report reviewed Thrombosis Risk Factor Assmnt - DVT/VTE Prophylaxis DVT/VTE Prophylaxis: Pharmacologic Prophylaxis ordered Assessment and Plan Plan: Impression and plan chest pain: Recent Cardiolite stress test negative for ischemia. Troponins negative 1. EKG nonspecific. We'll await cardiology, she'll be admitted observation. I'll order d-dimer and stat on her now. Dyslipidemia: continue her Lipitor Coronary artery disease with multiple stent placements I'll await cardiology. She remained on nitroglycerin and heparin drip. GI prophylaxis: I'll order Pepcid for her. DVT prophylaxis: She is on heparin drip. She will restart aspirin if cleared to discontinue this. History of fibromyalgia History of GERD. Obesity, BMI 32.9. History of lumbar degenerative disc disease. History of osteoarthritis. Chronic low back pain. History of anxiety, bipolar, and depression, stable. History of nicotine dependence. Patient was seen and evaluated in the emergency room Time with Patient: Greater than 30
[2016-08-13] MEDS ORDERED: ASPIRIN 81 MG CHEW PO STA (11:03)
[2016-08-13] MEDS ORDERED: ATORVASTATIN 80 MG TAB PO STA (11:03)
[2016-08-13] MEDS ORDERED: ALPRAZolam 0.5 MG TAB PO PRN (11:03)
[2016-08-13] MEDS ORDERED: ALPRAZolam 0.25 MG TAB PO PRN (11:03)
[2016-08-13] MEDS ORDERED: SODIUM CHLORIDE 0.9% 1,000 ML in EMPTY BAG 1 BAG IV ONE (11:03)
--- NOTE | 2016-08-13 11:07 | P.CRDCN ---
History of Present Illness Consult reason: chest pain History of present illness: 40-year-old obese female patient of Dr. Correia presenting with recurrent chest discomfort for the last one week. It got worse this morning and therefore she came to the emergency room. This was radiating down her left arm. She was nauseous and sweaty along with the discomfort. At this time she seems comfortable she was resting comfortably Twelve-lead ECG shows sinus rhythm without any definite ST segment abnormalities Recent stress test was normal but she has known coronary artery disease and coronary stenting. Last coronary angiography in 2014 Review of systems: No fever chills or rigors, no cough, phlegm or expectoration , no nausea, vomiting or diarrhea, no hematuria, dysuria, no musculoskeletal complaints, no strokes or seizures, no skin lesions. Past history of coronary artery disease coronary stenting, [place] dyslipidemia On examination she is lying comfortably in bed, afebrile 96.9, blood pressure 128/82 mmHg And neck examination is normal Heart sounds S1 and S2 are soft no murmurs no gallops Breath sounds are normal no rhonchi no crackles Extremity warm no edema Impression Recurrent chest discomfort raising the left arm associated with nausea and sweating First set of cardiac enzymes is normal First ECG does not show any definite ST segment abnormalities Known coronary artery disease, multiple coronary stenting in the past, [place] in the past Suggest Rule out acute myocardial infarction IV heparin Statins Brilinta Aspirin Beta blockers I will plan coronary angiography on Monday with Dr. Correia Past Medical History Past Medical History: Coronary Artery Disease (CAD), Chest Pain / Angina, Fibromyalgia, GERD/Reflux, Hyperlipidemia, Myocardial Infarction ([place]), Osteoarthritis (OA), Pneumonia Additional Past Medical History / Comment(s): [place] X2, severe CAD, lumbar DDD, lumbar facet arthropathy, low back pain, obesity, arthiritis,occ migraine, past medical records indicate HTN but pt denies. Last Myocardial Infarction Date:: 03/02/15 History of Any Multi-Drug Resistant Organisms: None Reported Past Surgical History: Heart Catheterization, Heart Catheterization With Stent Additional Past Surgical History / Comment(s): 03/03/15 PTCA with stent to RCA. Other SX HX: 2003 LAD stent, 2008 RCA with 3 stents, 2008 PDA stent, 2009 CX stent, 2010 proximal diag stent, 2012 OM stent, 2014 stent 2 to RCA ,several PAIN CLINIC PROCEDURES Past Anesthesia/Blood Transfusion Reactions: No Reported Reaction Date of Last Stent Placement:: 03/03/15 Past Psychological History: Anxiety, Bipolar, Depression Additional Psychological History / Comment(s): Pt lives with boyfriend. She is independent. She uses no assistive devices or ome care. She drives. Smoking Status: Former smoker Past Alcohol Use History: Occasional Additional Past Alcohol Use History / Comment(s): Pt states she started smoking in 1988 and smoked about 1 ppd-quit may 2016. She occasionally drinks alcohol, less that 7 per week. Past Drug Use History: None Reported - Past Family History Mother Family Medical History: Coronary Artery Disease (CAD), Fibromyalgia, Hyperlipidemia Additional Family Medical History / Comment(s): heart disease Father Family Medical History: CVA/TIA, Fibromyalgia, Hyperlipidemia, Hypertension, Musculoskeletal Disorder Additional Family Medical History / Comment(s): MS Sister(s) History Unknown: Yes Medications and Allergies Home Medications Medication Instructions Recorded Confirmed Type Aspirin 325 mg PO DAILY 08/08/16 08/08/16 History Atorvastatin [Lipitor] 80 mg PO DAILY 08/08/16 08/08/16 History HYDROcodone/APAP 10-325MG [[place] 1 tab PO TID PRN 08/08/16 08/08/16 History 10-325] Allergies Allergy/AdvReac Type Severity Reaction Status Date / Time moxifloxacin HCl Allergy Rash/Hives Verified 08/08/16 17:34 [From Avelox] Results 08/13/16 07:00 08/13/16 07:00 Current Medications Generic Name Dose Route Start Last Admin Trade Name Freq PRN Reason Stop Dose Admin Alprazolam 0.25 mg 08/13/16 11:03 Xanax PO Q6HR PRN Mild Anxiety Alprazolam 0.5 mg 08/13/16 11:03 Xanax PO Q6HR PRN Moderate Anxiety Aspirin 325 mg 08/14/16 09:00 Aspirin PO DAILY [facility] Aspirin 325 mg 08/13/16 11:03 Aspirin PO 08/13/16 11:04 ONCE STA Atorvastatin Calcium 80 mg 08/13/16 11:15 Lipitor PO DAILY [place] Atorvastatin Calcium 80 mg 08/13/16 11:03 Lipitor PO 08/13/16 11:04 ONCE STA Heparin Sodium/Dextrose 25,000 500 mls @ 19.59 mls/hr 08/13/16 10:00 unit/ IV Solution IV .Q24H [facility] Protocol 12 UNITS/KG/HR Sodium Chloride 1,000 ml/ IV 1,000 mls @ 81.64 mls/hr 08/13/16 11:03 Solution IV 08/13/16 11:04 .[id number] ONE 1 ML/KG/HR Metoprolol Tartrate 25 mg 08/13/16 11:15 Lopressor PO BID [facility] Nitroglycerin 1 inch 08/13/16 12:00 Nitro-Bid Oint TOPICAL Q6HR [facility] Nitroglycerin 0.4 mg 08/13/16 09:48 Nitrostat SUBLINGUAL Q5M PRN Chest Pain Nitroglycerin 0.4 mg 08/13/16 11:03 Nitrostat SUBLINGUAL Q5M PRN Chest Pain Pantoprazole Sodium 40 mg 08/13/16 11:00 Protonix PO AC-BRKFST [facility] Ticagrelor 90 mg 08/13/16 21:00 Brilinta PO BID [place]
[2016-08-13] MEDS ORDERED: ATORVASTATIN 80 MG TAB PO SCH (11:15)
[2016-08-13] MEDS: HEPARIN SODIUM,PORCINE/D5W PMX 25,000 UNIT in DEXTROSE/WATER 1 500ML.BAG IV SCH (11:22)
[2016-08-13] MEDS: PANTOPRAZOLE 40 MG TABLET PO SCH (11:45)
[2016-08-13] MEDS: METOPROLOL TARTRATE 25 MG TAB PO SCH ×2 (11:50→23:10)
[2016-08-13] MEDS ORDERED: RX INFO: IV CONTRAST WAS GIVEN 1 EACH MISC MISCELLANE PRN ×2 (13:51→21:15)
[2016-08-13 13:54] LABS: Creatine Kinase MB 25.3 ng/mL (0.0-2.4)
[2016-08-13 13:55] LABS: Troponin I 0.625 ng/mL (0.000-0.034)
[2016-08-13 14:01] LABS: Hemoglobin A1C 4.9 % (4.2-6.1)
[2016-08-13] MEDS: NITROGLYCERIN OINT 1 INCH/GM PACKET TOPICAL SCH ×2 (16:39→22:25)
--- NOTE | 2016-08-13 17:07 | CT ---
CT CHEST FOR PULMONARY EMBOLISM. EXAMINATION TYPE: CT angio chest DATE OF EXAM: 08/13/2016 5:01 PM INDICATION: Pt states of unstable angina today. CT DLP: 411.3 mGycm, Automated exposure control for dose reduction was used. CONTRAST: Patient injected with 80 mL of Visipaque 320. COMPARISON: NONE TECHNIQUE: CT of the chest is performed on a spiral scan at 2 mm thick sections. Study is performed with intravenous contrast timed for evaluation for pulmonary embolism. This will limit additional po rtions of the evaluation. 3-D MIP images reconstructed by the technologist are reviewed on the compu ter in the coronal and sagittal planes. FINDINGS: No persistent filling defects are evident to suggest an acute pulmonary embolism. There is a 1.1 cm superior mediastinal lymph node. Some right hilar adenopathy may be present measuri ng 1.4 cm. Small left infrahilar adenopathy and right infrahilar adenopathy and a be present. The as cending aorta diameter at the level of the main pulmonary artery is 4.1 cm. The main pulmonary arter y diameter at the bifurcation is 2.6 cm. Minimal subsegmental atelectasis may be within the periphery of the dependent lung bases. Infectious etiology is not excluded but considered less likely. Limited CT section through the upper abdomen are unremarkable. IMPRESSIONS: 1. No acute pulmonary emboli. 2. Scattered infiltrates more likely related atelectasis. Other etiologies are not excluded. 3. Enlarged superior mediastinal lymph node. Additional smaller hilar adenopathy may be present.
[2016-08-13 18:21] LABS: Troponin I 4.08 ng/mL (0.000-0.034)
[2016-08-13] MEDS: NITROGLYCERIN-D5W PMX 50 MG in DEXTROSE/WATER 1 250ML.BAG IV SCH (19:11)
[2016-08-13] MEDS ORDERED: HEPARIN SODIUM 1,000 UNIT/ML VIAL ONE (19:33)
[2016-08-13 19:38] VITALS: BMI 33.0
[2016-08-13] MEDS ORDERED: LIDOCAINE 2% INJ 20 MG/ML (20 ML MDV) ONE (19:42)
[2016-08-13] MEDS ORDERED: MIDAZOLAM 2 MG/2 ML VIAL IV ONE (19:50)
[2016-08-13] MEDS ORDERED: LIDOCAINE 2% INJ 20 MG/ML SQ ONE (19:52)
[2016-08-13] MEDS ORDERED: MIDAZOLAM 2 MG/2 ML VIAL ONE (19:53)
[2016-08-13] MEDS ORDERED: SODIUM CHLORIDE 0.9% 1,000 ML IV ONE (19:57)
[2016-08-13] MEDS ORDERED: FUROSEMIDE 10 MG/ML 4 ML VIAL ONE (20:05)
[2016-08-13] MEDS ORDERED: FUROSEMIDE 10 MG/ML 4 ML VIAL IV ONE (20:07)
[2016-08-13] MEDS ORDERED: BIVALIRUDIN 250 MG in SODIUM CHLORIDE 0.9% 50 ML IV ONE (20:11)
[2016-08-13] MEDS ORDERED: BIVALIRUDIN BOLUS 250 MG/50 ML IV ONE (20:11)
--- NOTE | 2016-08-13 20:32 | CC ---
INDICATION: Acute myocardial infarction. This is a 40-year-old lady with known CAD, status post prior angioplasty, who presented to [facility] with chest pain around 6:40 this morning, was evaluated by my associate Dr. Borja and was scheduled for a cardiac catheterization on Monday. Her troponin came back elevated and because of persistent chest pain and elevated troponin, she was advised to undergo cardiac catheterization. We brought her to [facility] as soon as we could, as the [facility] was occupied with permanent pacemakers. An EKG done around 5:40 showed new anterior wall changes and the initial EKG showed T wave inversions in the inferior leads. At the time I saw the patient in the [facility], she appeared comfortable at rest and was hemodynamically stable. PROCEDURE NOTE: After obtaining informed consent, left heart catheterization and coronary angiogram were performed via the right femoral artery using standard Mar[place] catheters. Patient tolerated the procedure well without any obvious immediate complications. Patient had a CTA because of an elevated D-dimer and the patient is at risk for contrast-induced nephropathy and she understands these issues. FINDINGS: 1. Hemodynamics: Left ventricular end-diastolic pressure is elevated over 30 mm. 2. Angiographic data: a. Left Main coronary artery: Left main coronary artery is a normal-sized vessel and is free of stenosis. It divides into LAD, ramus intermedius and circumflex coronary artery. b. LAD is totally occluded in the ostial portion proximal to the previously stented segment. c. Ramus intermedius was stented and the stent appears patent. d. [place] circumflex coronary artery has a 70% to 80% stenosis. e. Right coronary artery is large dominant vessel and there are [id number] collaterals to the LAD from the distal RCA. f. The PDA shows a 70% to 80% stenosis in the ostial portion. g. The proximal, mid and distal RCA that was previously stented shows diffuse disease without any focal stenotic lesions. CONCLUSIONS: 1. Acutely occluded proximal left anterior descending artery secondary to in-stent thrombosis. 2. 70% stenosis involving [place] circumflex coronary artery. 3. Patent stents within the ramus intermedius and right coronary artery with an 80% stenosis involving posterior descending artery, both in the ostial portion and in the mid part. PLAN: Dr. Montoya, the on-call radiator core tester, will attempt angioplasty of LAD, at this time.
[2016-08-13] MEDS: NITROGLYCERIN 1000MCG/10ML SYRINGE INTRACORON ONE ×2 (20:41→20:53)
[2016-08-13] MEDS ORDERED: niCARdipine Syringe (1,000 mcg/10 mL) INTRACORON ONE (20:41)
[2016-08-13] MEDS ORDERED: IOHEXOL 350 MG/ML 100 ML BOTTLE INTRATHECA ONE (21:07)
[2016-08-13] MEDS ORDERED: HYDROmorphone 2 MG/ML 1 ML SYRINGE ONE (21:13)
[2016-08-13] MEDS ORDERED: HYDROmorphone 2 MG/ML 1 ML SYRINGE IV ONE (21:15)
[2016-08-13] MEDS ORDERED: ZOLPIDEM 5 MG TAB PO PRN (21:15)
[2016-08-13] MEDS ORDERED: SODIUM CHLORIDE 0.9% 1,000 ML IV SCH (21:15)
[2016-08-13] MEDS ORDERED: MAG HYDROX/AL HYDROX/SIMETH 30 ML CUP PO PRN (21:15)
[2016-08-13] MEDS: TICAGRELOR 90 MG TAB PO SCH (23:10)
[2016-08-14] MEDS: HYDROmorphone 1 MG/ML 1 ML SYRINGE IVP PRN ×5 (00:09→20:19)
[2016-08-14] MEDS: PANTOPRAZOLE 40 MG TABLET PO SCH (06:51)
[2016-08-14 07:11] LABS: Cholesterol 161 mg/dL (<200); HDL Cholesterol 47 mg/dL (40-60); Non-African American GFR(MDRD) >60 (>60 ml/min/1.73 sqM); Triglycerides 223 mg/dL (<150)
[2016-08-14] MEDS ORDERED: ASPIRIN 325 MG TAB PO SCH (09:00)
[2016-08-14] MEDS: ASPIRIN 81 MG CHEW PO SCH (10:19)
[2016-08-14] MEDS: ATORVASTATIN 80 MG TAB PO SCH (10:19)
--- NOTE | 2016-08-14 11:50 | P.PN ---
Subjective Patient is a 40-year-old female with medical history significant for severe coronary artery disease with stent placement of the RCA, left circumflex , and LAD, fibromyalgia, GERD, dyslipidemia, myocardial infarction, osteoporosis , bipolar disorder, and lumbar degenerative disc disease. Patient presented to the emergency department with complaints of chest discomfort 2 weeks lasting approximately 6 hours EKG with normal sinus rhythm nonspecific ST abnormalities, troponins negative 1. Patient was seen and evaluated by cardiology on admission of August 08 and underwent an exercise Cardiolite stress test without evidence of stressed induced ischemia. Patient was felt stable for discharge to home with follow-up in the outpatient setting as directed. Emergency room physician indicates patient was diaphoretic on his evaluation. Her initial troponins and were normal and EKG nonspecific. I discussed her case with Dr. Coffey at the time of her admission. He planned on her possibly having a catheterization on Monday. Her second set of troponins was abnormal and she was taken for cardiac catheterization. He was found to have a total occlusion of the LAD. This was restented. She is resting comfortably now. She is mostly pain-free. She reported morphine cause nausea and she was changed to Dilaudid. She currently denies any nausea, vomiting, chest pains, pressures, or shortness of breath of any significance. Objective - Vital Signs Vital signs: Vital Signs Temp 97.7 F 08/14/16 08:00 Pulse 76 08/14/16 08:00 Resp 16 08/14/16 11:31 BP 108/77 08/14/16 08:00 Pulse Ox 95 08/14/16 04:00 Intake & Output 08/13/16 08/14/16 08/14/16 18:59 06:59 18:59 Intake Total 169 2003.5 180 Output Total 1800 Balance 169 203.5 180 Weight 81.8 kg 84 kg Intake: IV 1043.5 Sodium Chloride 0.9% 1, 800 000 ml @ 100 mls/hr IV . Q10H [facility] Rx#:[id number] Intake, IV Titration 169 Amount Heparin Sodium,Porcine/ 60 D5w Pmx 25,000 unit In Dextrose/Water 1 500ml. bag @ 12 UNITS/KG/HR 19. 59 mls/hr IV .Q24H [facility] Rx #:[id number] Nitroglycerin-D5w Pmx 50 9 mg In Dextrose/Water 1 250ml.bag @ 30 MCG/MIN 9 mls/hr IV .Q24H [facility] Rx#: [id number] Sodium Chloride 0.9% 1, 100 000 ml In Empty Bag 1 bag @ 1 ML/KG/HR 81.64 mls/ hr IV .[id number] [facility] Rx#: [id number] Oral 960 180 Output: Urine 1800 Other: Voiding Method Toilet Bedpan Bedpan # Voids 1 2 3 - Exam General: The patient is awake and alert, in no distress, and does not appear acutely ill. Neck: The neck is supple, there is no thyromegaly, lymphadenopathy, tenderness or JVD. Cardiovascular: S1S2 is normal, There is a regular rate and rhythm. No murmur, rub or gallop is appreciated. Respiratory: Lungs are clear to auscultation bilaterally, respirations are non -labored, breath sounds are equal. Gastrointestinal: Soft, non-distended, non-tender abdomen without masses or organomegaly noted. There is no rebound or guarding present. Bowel sounds are unremarkable. Musculoskeletal: Normal ROM, no tenderness, There is no pedal edema. There is no calf tenderness or swelling. No cords were appreciated. Neurological: CN II-XII intact, there are no obvious motor or sensory deficits. Coordination appears grossly intact. Speech is normal. Skin: Skin is warm and dry and no rashes or lesions are noted. - Labs CBC & Chem 7: 08/13/16 07:00 08/14/16 06:26 Labs: Abnormal Lab Results - Last 24 Hours (Table) 08/13/16 08/13/16 08/14/16 Range/Units 12:46 17:43 06:26 Total Creatine Kinase 239 H 978 H (30-135) U/L CK-MB (CK-2) 25.3 H* 109.0 H* (0.0-2.4) ng/mL Troponin I 0.625 H* 4.080 H* (0.000-0.034) ng/mL Triglycerides 223 H (<150) mg/dL Assessment and Plan Plan: Impression and plan Acute myocardial infarction with complete occlusion of the LAD after Recent Cardiolite stress test negative for ischemia: Per cardiology, she may need stenting of several other branches of the coronary arteries. We discussed possible bypass for in the future. Dyslipidemia: continue her Lipitor Coronary artery disease with multiple stent placements: Await further recommendations from cardiology and she'll remain on her heparin drip at this time. GI prophylaxis: Continue Protonix DVT prophylaxis: Continue heparin drip at this time History of noncompliance: I discussed with her at length the need to continue her bipolar medication and control her symptoms. Last time she had worsening of this, she discontinued most of her medications, including her Lipitor, and smoked more heavily than in the past. Her bipolar is currently stable, and she remained smoke-free History of nicotine dependence: She remained smoke-free at this time, smoking cessation was reinforced to her in light of her recurrent coronary episodes. History of fibromyalgia History of GERD. Obesity, BMI 32.9. History of lumbar degenerative disc disease. History of osteoarthritis. Chronic low back pain. History of and relies anxiety disorder and bipolar depression, currently stable I'll await further recommendations from cardiology. She will remain on selective this time.
[2016-08-14] MEDS: TICAGRELOR 90 MG TAB PO SCH ×2 (12:24→21:14)
[2016-08-14] MEDS: METOPROLOL TARTRATE 25 MG TAB PO SCH ×2 (12:24→22:04)
--- NOTE | 2016-08-14 12:32 | PTCA ---
DATE OF SERVICE: August 13, 2016 PERFORMING PHYSICIAN: John Montoya student services vice president. PROCEDURE PERFORMED: Successful stenting of the proximal left anterior descending artery using 3.0 x 23 mm Xience DUNCAN which was postdilated using 3.25 mm NC balloon with a good angiographic results. This is a pleasant 40-year-old female patient who is known to have CAD underlying coronary artery disease with prior stenting of the LAD and RCA as well as prior stenting of the diagonal presented to the hospital with chest discomfort and was diagnosed ( ) myocardial infarction, ( ) chest discomfort. She had cardiac catheterization by Dr. Herrera and was found to have ( ) stent thrombosis involving the ( ). The decision was made toward percutaneous coronary intervention of the left anterior descending artery. Approach: Right common femoral artery. COMPLICATIONS: None. Level of sedation: Moderate. PROCEDURE DESCRIPTION: After diagnostic heart catheterization was performed by Dr. Herrera and after reviewing the angiogram, we decided to intervene on the LAD. Anticoagulation was initiated using Angiomax. Subsequently, I did engage the left main using an XB35 LAD guide. I crossed the total occlusion of the LAD proximally using a Whisper wire. I did use a back-up support of 2.0 x 12 mm [id number] balloon. Subsequently, I did balloon the LAD using 2.0 x 12 mm balloon. After that, I did cutting balloon where I used the AngioSculpt balloon, which was 3.0 x 10 mm balloon as well where I did the ballooning of the LAD using angioSculpt multiple times. After that, I deployed a 3.0 x 23 mm Xience DUNCAN, where the stent was positioned under fluoroscopy guidance and deployed under 14 atmospheres for 20 seconds. After that, I did post dilate that stent using a 3.25 mm NC balloon. The following angiogram showed good angiographic results with a good flow in the LAD. The procedure was completed without any complication. POSTPROCEDURE MANAGEMENT: 1. Dual antiplatelet therapy. 2. Risk factor modification. 3. Follow up with the patient.
[2016-08-14] MEDS: HEPARIN SODIUM,PORCINE/D5W PMX 25,000 UNIT in DEXTROSE/WATER 1 500ML.BAG IV SCH (17:04)
--- NOTE | 2016-08-14 17:06 | P.PN ---
Subjective Patient is doing a lot better. Vague intermittent chest discomfort but a lot better than yesterday No dizziness lightheadedness On examination she is afebrile 97.7, pulse rate in the 70s, normal respirations , blood pressure 108/77 mmHg And neck examination is normal Heart sounds are a normal Breath sounds are normal Abdomen soft Impression Coronary artery disease Recurrent HI Multiple cardiac caths multiple stents Non-Q-wave myocardial infarction Plan Normal smoking Compliance with medications Maximize medical treatment Objective - Vital Signs Vital signs: Vital Signs Temp 97.7 F 08/14/16 12:00 Pulse 76 08/14/16 12:00 Resp 16 08/14/16 12:00 BP 108/77 08/14/16 12:00 Pulse Ox 95 08/14/16 04:00 Intake & Output 08/13/16 08/14/16 08/14/16 18:59 06:59 18:59 Other: Voiding Method Bedpan # Voids 1 - Labs CBC & Chem 7: 08/13/16 07:00 08/14/16 06:26
[2016-08-14] MEDS: NITROGLYCERIN-D5W PMX 50 MG in DEXTROSE/WATER 1 250ML.BAG IV SCH (21:10)
[2016-08-15 06:14] LABS: Basophils % (A) 1 %; CH 32.2; CHCM 33.7; Eosinophils # (A) 0.1 k/uL (0-0.7); Eosinophils % (A) 1 %; HCT 35.4 % (34.0-46.0); HDW 2.35; HGB 11.7 gm/dL (11.4-16.0); Luc # (Auto) 0.18; Luc % (Auto) 2; Lymphocytes # (A) 2.8 k/uL (1.0-4.8); Lymphocytes % (A) 37 %; MCH 31.7 pg (25.0-35.0); MCV 96.1 fL (80.0-100.0); Mean Platelet Volume 7.2; Monocytes # (A) 0.4 k/uL (0-1.0); Monocytes % (A) 5 %; Neutrophils % (A) 54 %; RBC 3.68 m/uL (3.80-5.40); RDW 14.1 % (11.5-15.5); WBC 7.5 k/uL (3.8-10.6); WBC (Perox) 8.04
[2016-08-15 06:25] LABS: Anion Gap 7 mmol/L; Blood Urea Nitrogen 12 mg/dL (7-17); Calcium 8.4 mg/dL (8.4-10.2); Carbon Dioxide 24 mmol/L (22-30); Chloride 109 mmol/L (98-107); Glucose 92 mg/dL (74-99); Non-African American GFR(MDRD) >60 (>60 ml/min/1.73 sqM); Potassium 3.7 mmol/L (3.5-5.1); Sodium 140 mmol/L (137-145)
[2016-08-15] MEDS: HYDROmorphone 1 MG/ML 1 ML SYRINGE IVP PRN ×5 (06:28→23:51)
[2016-08-15] MEDS: PANTOPRAZOLE 40 MG TABLET PO SCH (06:28)
[2016-08-15] MEDS: ATORVASTATIN 80 MG TAB PO SCH (09:41)
[2016-08-15] MEDS: TICAGRELOR 90 MG TAB PO SCH ×2 (09:41→20:15)
[2016-08-15] MEDS: METOPROLOL TARTRATE 25 MG TAB PO SCH ×2 (09:41→20:15)
[2016-08-15] MEDS: ASPIRIN 81 MG CHEW PO SCH (09:41)
--- NOTE | 2016-08-15 13:45 | P.PN ---
Subjective Principal diagnosis: Chest pain Patient is a 40-year-old female with medical history significant for severe coronary artery disease with stent placement of the RCA, left circumflex , and LAD, fibromyalgia, GERD, dyslipidemia, myocardial infarction, osteoporosis , bipolar disorder, and lumbar degenerative disc disease. Patient presented to the emergency department with complaints of chest discomfort 2 weeks. Patient was recently admitted on August 08 and and underwent an exercise Cardiolite stress test without evidence of stressed induced ischemia. Patient was discharged home in stable condition. This time, patient presented with chest pain that started 2 hours prior to arrival associated with shortness of breath, diaphoresis, and left arm numbness and jaw pain. Troponin 0.012, 0.625 , 4.080. Patient was evaluated by cardiology service and underwent heart catheterization with stenting to the proximal left anterior descending artery on 08/13/2016. Patient tolerated procedure well. Upon evaluation, patient complains of mild intermittent chest pain but states it's better than yesterday. Denies chills, fevers, nausea, vomiting, lightheadedness, palpitations, shortness of breath, or abdominal pain. Tolerating diet. Urinating without difficulty. Afebrile. Objective - Vital Signs Vital signs: Vital Signs Temp 97.9 F 08/15/16 08:00 Pulse 83 08/15/16 08:00 Resp 16 08/15/16 08:00 BP 110/70 08/15/16 08:00 Pulse Ox 96 08/15/16 08:00 Intake & Output 08/14/16 08/15/16 08/15/16 18:59 06:59 18:59 Intake Total 1000 498 Balance 1000 498 Weight 84.6 kg Intake: IV 800 Sodium Chloride 0.9% 1, 800 000 ml @ 100 mls/hr IV . Q10H [facility] Rx#:[id number] Oral 200 498 Other: Voiding Method Bedpan # Voids 2 2 2 - Exam General: The patient is awake and alert, in no distress, and does not appear acutely ill. Neck: The neck is supple, there is no thyromegaly, lymphadenopathy, tenderness or JVD. Cardiovascular: S1S2 is normal, There is a regular rate and rhythm. No murmur, rub or gallop is appreciated. Respiratory: Lungs are clear to auscultation bilaterally, respirations are non -labored, breath sounds are equal. Gastrointestinal: Soft, obese, non-distended, non-tender abdomen without masses or organomegaly noted. There is no rebound or guarding present. Bowel sounds are unremarkable. Musculoskeletal: Normal ROM, no tenderness, There is no pedal edema. There is no calf tenderness or swelling. Neurological: CN II-XII intact, there are no obvious motor or sensory deficits. Coordination appears grossly intact. Speech is normal. Skin: Skin is warm and dry and no rashes or lesions are noted. - Labs CBC & Chem 7: 08/15/16 05:51 08/15/16 05:58 Labs: Abnormal Lab Results - Last 24 Hours (Table) 08/15/16 08/15/16 Range/Units 05:51 05:58 RBC 3.68 L (3.80-5.40) m/uL Chloride 109 H (98-107) mmol/L Assessment and Plan Plan: Impression and plan: 1. Acute myocardial infarction status post heart catheterization with stent placement to proximal LAD. Patient had a recent Cardiolite stress test negative for ischemia. Per cardiology, she may need stenting of several other branches of the coronary arteries. We discussed possible bypass for in the future. 2. Dyslipidemia: continue her Lipitor 3. Coronary artery disease with multiple stent placements: Await further recommendations from cardiology and she'll remain on her heparin drip at this time. 4. History of nicotine dependence: She remained smoke-free at this time, smoking cessation was reinforced to her in light of her recurrent coronary episodes. 5. History of fibromyalgia 6. History of GERD. 7. Obesity, BMI 32.9. 8. History of lumbar degenerative disc disease. 9. History of osteoarthritis. 10. Chronic low back pain. 11. History of and relies anxiety disorder and bipolar depression, currently stable. 12. GI prophylaxis: Continue Protonix 13. DVT prophylaxis: Continue subcutaneous heparin. Increase activity. 14. History of noncompliance: Discussed with patient at length the need to continue her bipolar medication and control her symptoms. Last time she had worsening of this, she discontinued most of her medications, including her Lipitor, and smoked more heavily than in the past. The above impression and plan have been discussed and directed by Dr. Hooper. Anila MARIE acting as scribe for Dr. Hooper.
--- NOTE | 2016-08-15 14:54 | P.PN ---
Subjective Principal diagnosis: NOn STEMI This is a pleasant 40-year-old female with known history of prior coronary artery disease who presented to the hospital with a non-Q-wave myocardial infarction. She was taken to the cardiac catheterization lab and subsequently underwent angioplasty with stent placement of the left anterior descending artery. EKG was performed this Morning which showed a normal sinus rhythm with no changes from post-PCI. CBC normal. Potassium 3.7, BUN 12, creatinine 0.6. Patient feels well overall, denies any chest pain or difficulty in breathing. Objective - Vital Signs Vital signs: Vital Signs Temp 97.9 F 08/15/16 12:00 Pulse 69 08/15/16 12:00 Resp 16 08/15/16 12:00 BP 98/68 08/15/16 12:00 Pulse Ox 98 08/15/16 12:00 Intake & Output 08/14/16 08/15/16 08/15/16 18:59 06:59 18:59 Intake Total 1000 498 Balance 1000 498 Weight 84.6 kg Intake: IV 800 Sodium Chloride 0.9% 1, 800 000 ml @ 100 mls/hr IV . Q10H [facility] Rx#:[id number] Oral 200 498 Other: Voiding Method Bedpan # Voids 2 2 2 - Exam PHYSICAL EXAMINATION: HEENT: Head is atraumatic, normocephalic. Pupils equal, round. Neck is supple. There is no elevated jugular venous pressure. HEART EXAMINATION: Heart S1, S2 normal. No murmur or gallop heard. CHEST EXAMINATION: Lungs are clear to auscultation and precussion. No chest wall tenderness is noted on palpation or with deep breathing. ABDOMEN: Soft, nontender. Bowel sounds are heard. No organomegaly noted. Right groin soft, no evidence of any hematoma. EXTREMITIES: 2+ peripheral pulses with no evidence of peripheral edema and no calf tenderness noted. NEUROLOGIC patient is awake, alert and oriented -3. . - Labs CBC & Chem 7: 08/15/16 05:51 08/15/16 05:58 Labs: Abnormal Lab Results - Last 24 Hours (Table) 08/15/16 08/15/16 Range/Units 05:51 05:58 RBC 3.68 L (3.80-5.40) m/uL Chloride 109 H (98-107) mmol/L Assessment and Plan (1) Non-Q wave infarction Status: Acute (2) Presence of stent in LAD coronary artery Status: Acute (3) CAD (coronary artery disease) Status: Acute (4) History of hypertension Status: Acute (5) Hyperlipidemia Status: Acute Plan: From cardiology's perspective, we'll recommend to continue the patient's current medications. She's not on an AZCARIAS inhibitor at this time because of hypotension, we will continue her other medications. She has been encouraged to be up ambulating today. DNP note has been reviewed, I agree with a documented findings and plan of care. Patient was seen and examined.
[2016-08-15] MEDS: HEPARIN SODIUM,PORCINE 5,000 UNIT/ML 1 ML VIAL SQ SCH (20:15)
[2016-08-16] MEDS: HYDROmorphone 1 MG/ML 1 ML SYRINGE IVP PRN ×2 (03:48→08:50)
[2016-08-16] MEDS: PANTOPRAZOLE 40 MG TABLET PO SCH (06:36)
[2016-08-16 06:56] LABS: Basophils # (A) 0.1 k/uL (0-0.2); Basophils % (A) 1 %; CHCM 33.2; Eosinophils # (A) 0.2 k/uL (0-0.7); Eosinophils % (A) 3 %; HCT 35.6 % (34.0-46.0); HGB 11.5 gm/dL (11.4-16.0); Luc # (Auto) 0.18; Luc % (Auto) 3; Lymphocytes # (A) 2.8 k/uL (1.0-4.8); Lymphocytes % (A) 39 %; MCH 31.3 pg (25.0-35.0); MCHC 32.3 g/dL (31.0-37.0); Monocytes # (A) 0.4 k/uL (0-1.0); Monocytes % (A) 6 %; Neutrophils # (A) 3.5 k/uL (1.3-7.7); Neutrophils % (A) 49 %; RBC 3.67 m/uL (3.80-5.40); RDW 14.2 % (11.5-15.5); WBC 7.1 k/uL (3.8-10.6); WBC (Perox) 7.52
[2016-08-16 07:04] LABS: Anion Gap 9 mmol/L; Blood Urea Nitrogen 10 mg/dL (7-17); Calcium 8.6 mg/dL (8.4-10.2); Carbon Dioxide 21 mmol/L (22-30); Chloride 109 mmol/L (98-107); Glucose 86 mg/dL (74-99); Non-African American GFR(MDRD) >60 (>60 ml/min/1.73 sqM); Potassium 4.3 mmol/L (3.5-5.1); Sodium 139 mmol/L (137-145)
[2016-08-16 08:00] VITALS: TEMP 97.6
[2016-08-16] MEDS: ASPIRIN 81 MG CHEW PO SCH (09:57)
[2016-08-16] MEDS: ATORVASTATIN 80 MG TAB PO SCH (09:57)
[2016-08-16] MEDS: TICAGRELOR 90 MG TAB PO SCH (09:57)
[2016-08-16] MEDS: HEPARIN SODIUM,PORCINE 5,000 UNIT/ML 1 ML VIAL SQ SCH (09:57)
[2016-08-16] MEDS: METOPROLOL TARTRATE 25 MG TAB PO SCH (09:57)
[2016-08-16 11:18] VITALS: BP 93/60; PULSE 68; RESP 14
--- NOTE | 2016-08-16 12:58 | P.DS ---
Providers Date of admission: 08/14/16 13:03 Expected date of discharge: 08/16/16 Attending physician: Brenden Rodriguez Consults: Cardiology service Primary care physician: Brenden Rodriguez [facility] Course: Patient is a 40-year-old female with medical history significant for severe coronary artery disease with stent placement of the RCA, left circumflex , and LAD, fibromyalgia, GERD, dyslipidemia, myocardial infarction, osteoporosis , bipolar disorder, and lumbar degenerative disc disease. Patient presented to the emergency department with complaints of chest discomfort 2 weeks. Patient was recently admitted on August 08 and and underwent an exercise Cardiolite stress test without evidence of stressed induced ischemia. Patient was discharged home in stable condition. This time, patient presented with chest pain that started 2 hours prior to arrival associated with shortness of breath, diaphoresis, and left arm numbness and jaw pain. Troponin 0.012, 0.625 , 4.080. Patient was evaluated by cardiology service and was found to have non- Q-wave myocardial infarction and underwent angioplasty with stenting to the proximal left anterior descending artery on 08/13/2016. Patient tolerated procedure well. Patient's chest pain resolved and she was stable for discharge from a cardiology and medical standpoint. Discharge diagnoses: 1. Non-Q-wave myocardial infarction status post angioplasty with stenting to the proximal LAD on 08/13/2016. 2. Dyslipidemia 3. Coronary artery disease with multiple stent placements 4. History of nicotine dependence 5. History of fibromyalgia 6. History of GERD. 7. Obesity, BMI 32.9. 8. History of lumbar degenerative disc disease. 9. History of osteoarthritis. 10. Chronic low back pain. 11. Anxiety disorder and bipolar depression, currently stable. 12. History of noncompliance 13. History of hypertension. The above impression and plan have been discussed and directed by Dr. Hooper. Anila MARIE acting as scribe for Dr. Hooper. Pertinent Studies: EKG; chest x-ray; chest CTA Procedures: Heart catheterization with angioplasty and stent to the proximal LAD Patient Condition at Discharge: Good Plan - Discharge Summary New Discharge Prescriptions: Aspirin 81 mg PO DAILY #30 chew Atorvastatin [Lipitor] 80 mg PO DAILY #30 tab Metoprolol Tartrate [Lopressor] 25 mg PO BID #60 tab Nitroglycerin Sl Tabs [Nitrostat] 0.4 mg SUBLINGUAL Q5M PRN #25 tab PRN Reason: Chest Pain Ticagrelor [Brilinta] 90 mg PO BID #60 tab Discharge Medication List HYDROcodone/APAP 10-325MG [[place] 10-325] 1 tab PO TID PRN 08/08/16 [History] Aspirin 81 mg PO DAILY #30 chew 08/16/16 [Rx] Atorvastatin [Lipitor] 80 mg PO DAILY #30 tab 08/16/16 [Rx] Metoprolol Tartrate [Lopressor] 25 mg PO BID #60 tab 08/16/16 [Rx] Nitroglycerin Sl Tabs [Nitrostat] 0.4 mg SUBLINGUAL Q5M PRN #25 tab 08/16/16 [Rx ] Ticagrelor [Brilinta] 90 mg PO BID #60 tab 08/16/16 [Rx] Follow up Appointment(s)/Referral(s): Brenden Rodriguez MD [Primary Care Provider] - 1-2 days Stella Correia MD [STAFF PHYSICIAN] - 1 Week Patient Instructions/Handouts: After Heart Catheterization - [employer]ber Goods Inspector Discharge Disposition: HOME SELF-CARE
--- NOTE | 2016-08-16 14:03 | P.PN ---
Subjective Principal diagnosis: NOn STEMI This is a pleasant 40-year-old female with known history of prior coronary artery disease who presented to the hospital with a non-Q-wave myocardial infarction. She was taken to the cardiac catheterization lab and subsequently underwent angioplasty with stent placement of the left anterior descending artery. Patient was seen and examined this morning, denies any chest pain or difficulty in breathing. No arrhythmias have been noted on the monitor. Objective - Vital Signs Vital signs: Vital Signs Temp 97.6 F 08/16/16 11:16 Pulse 68 08/16/16 11:16 Resp 14 08/16/16 11:16 BP 93/60 08/16/16 11:16 Pulse Ox 99 08/16/16 11:16 Intake & Output 08/15/16 08/16/16 08/16/16 18:59 06:59 18:59 Intake Total 720 180 Balance 720 180 Weight 86.1 kg Intake: Oral 720 180 Other: Voiding Method Toilet Toilet # Voids 2 1 # Bowel Movements 0 - Exam PHYSICAL EXAMINATION: HEENT: Head is atraumatic, normocephalic. Pupils equal, round. Neck is supple. There is no elevated jugular venous pressure. HEART EXAMINATION: Heart S1, S2 normal. No murmur or gallop heard. CHEST EXAMINATION: Lungs are clear to auscultation and precussion. No chest wall tenderness is noted on palpation or with deep breathing. ABDOMEN: Soft, nontender. Bowel sounds are heard. No organomegaly noted. Right groin soft, no evidence of any hematoma. EXTREMITIES: 2+ peripheral pulses with no evidence of peripheral edema and no calf tenderness noted. NEUROLOGIC patient is awake, alert and oriented -3. . - Labs CBC & Chem 7: 08/16/16 06:26 08/16/16 06:26 Labs: Abnormal Lab Results - Last 24 Hours (Table) 08/16/16 08/16/16 Range/Units 06:26 06:26 RBC 3.67 L (3.80-5.40) m/uL Chloride 109 H (98-107) mmol/L Carbon Dioxide 21 L (22-30) mmol/L Assessment and Plan (1) Non-Q wave infarction Status: Acute (2) Presence of stent in LAD coronary artery Status: Acute (3) CAD (coronary artery disease) Status: Acute (4) History of hypertension Status: Acute (5) Hyperlipidemia Status: Acute Plan: From cardiology's perspective, we'll recommend to continue the patient's current medications. She's not on an ZACARIAS inhibitor at this time because of hypotension, we will continue her other medications. Patient may be able to be discharged home today. A follow-up appointment will be made with Dr. VC Correia in the office post discharge. DNP note has been reviewed, I agree with a documented findings and plan of care. Patient was seen and examined.
== END 2016-08-16 13:17 | disposition home or self-care (01) | DRG 247 ==
LOC: EC 06:28 → 3OBS 09:48 → 6SEL 14:21 → OBSVTOIN 08-14 13:03
PROVIDERS: ADMIT Family Medicine; ATTEND Family Medicine
PROC: B2111ZZ Fluoroscopy of Multiple Coronary Arteries using Low Osmolar Contrast (ICD-10-PCS; 2016-08-13)
PROC: 027034Z Dilation of Coronary Artery, One Artery with Drug-eluting Intraluminal Device, Percutaneous Approach (ICD-10-PCS; principal; 2016-08-13 19:44)
PROC: 4A023N7 Measurement of Cardiac Sampling and Pressure, Left Heart, Percutaneous Approach (ICD-10-PCS; 2016-08-13 19:44)
DX: I21.4 Non-ST elevation (NSTEMI) myocardial infarction (principal); T82.867A Thrombosis due to cardiac prosthetic devices, implants and grafts, initial encounter; I25.82 Chronic total occlusion of coronary artery; I25.110 Atherosclerotic heart disease of native coronary artery with unstable angina pectoris; I10 Essential (primary) hypertension; E78.5 Hyperlipidemia, unspecified; F31.9 Bipolar disorder, unspecified; K21.9 Gastro-esophageal reflux disease without esophagitis; M79.7 Fibromyalgia; M81.0 Age-related osteoporosis without current pathological fracture; M51.36 Other intervertebral disc degeneration, lumbar region; M19.90 Unspecified osteoarthritis, unspecified site; F41.9 Anxiety disorder, unspecified; Z82.49 Family history of ischemic heart disease and other diseases of the circulatory system; G43.909 Migraine, unspecified, not intractable, without status migrainosus; G89.29 Other chronic pain; E66.9 Obesity, unspecified; Z68.34 Body mass index [BMI] 34.0-34.9, adult; Z71.3 Dietary counseling and surveillance; I25.2 Old myocardial infarction; Z87.891 Personal history of nicotine dependence; Z95.5 Presence of coronary angioplasty implant and graft; Z79.899 Other long term (current) drug therapy; Z91.19 Patient's noncompliance with other medical treatment and regimen; Z79.82 Long term (current) use of aspirin
CPT/HCPCS: 36415; 71020; 71275; 80048; 80053; 80061; 82550; 82553; 82565; 83036; 83735; 84443; 84484; 85025; 85379; 85610; 85730; 93005; 93458; 96361; 96365; 96366; 96375; 96376; 99291

== ENCOUNTER 2016-09-19 08:57 | Day surgery (SDC) | payer MEDICARE, OTHER ==
[~2016-09-19 08:57] MED LIST: ALPRAZolam 0.25 MG TAB PO PRN; ASPIRIN 325 MG TAB PO ONE; SODIUM CHLORIDE 0.9% 1,000 ML in EMPTY BAG 1 BAG IV ONE
[2016-09-19] MEDS ORDERED: HYDROcodone/APAP 10-325MG 1 EACH TAB ONE (09:10)
[2016-09-19] MEDS ORDERED: LIDOCAINE 2% INJ 20 MG/ML (20 ML MDV) ONE ×2 (09:10→09:57)
[2016-09-19 09:29] LABS: Basophils # (A) 0.1 k/uL (0-0.2); Basophils % (A) 1 %; CH 32.5; CHCM 34.2; Eosinophils # (A) 0.2 k/uL (0-0.7); Eosinophils % (A) 3 %; HCT 42.6 % (34.0-46.0); HDW 2.44; HGB 14.2 gm/dL (11.4-16.0); Luc # (Auto) 0.16; Luc % (Auto) 3; Lymphocytes # (A) 2.6 k/uL (1.0-4.8); Lymphocytes % (A) 40 %; MCH 31.8 pg (25.0-35.0); MCHC 33.3 g/dL (31.0-37.0); MCV 95.6 fL (80.0-100.0); Mean Platelet Volume 7.9; Monocytes # (A) 0.3 k/uL (0-1.0); Monocytes % (A) 5 %; Neutrophils # (A) 3.2 k/uL (1.3-7.7); Neutrophils % (A) 49 %; RBC 4.46 m/uL (3.80-5.40); WBC 6.6 k/uL (3.8-10.6); WBC (Perox) 6.42
[2016-09-19 09:46] LABS: Anion Gap 10 mmol/L; Blood Urea Nitrogen 14 mg/dL (7-17); Calcium 9.3 mg/dL (8.4-10.2); Carbon Dioxide 20 mmol/L (22-30); Chloride 110 mmol/L (98-107); Glucose 90 mg/dL (74-99); Non-African American GFR(MDRD) >60 (>60 ml/min/1.73 sqM); Potassium 4.5 mmol/L (3.5-5.1); Sodium 140 mmol/L (137-145)
[2016-09-19] MEDS ORDERED: MIDAZOLAM 2 MG/2 ML VIAL ONE (09:54)
[2016-09-19] MEDS ORDERED: MIDAZOLAM 2 MG/2 ML VIAL IV ONE (09:54)
[2016-09-19] MEDS ORDERED: LIDOCAINE 2% INJ 20 MG/ML SQ ONE ×2 (09:57→10:00)
[2016-09-19] MEDS ORDERED: BIVALIRUDIN BOLUS 250 MG/50 ML IV ONE (10:00)
[2016-09-19] MEDS ORDERED: BIVALIRUDIN 250 MG in SODIUM CHLORIDE 0.9% 50 ML IV ONE (10:02)
[2016-09-19] MEDS ORDERED: NITROGLYCERIN 1000MCG/10ML SYRINGE INTRACORON ONE (10:10)
[2016-09-19] MEDS ORDERED: IOHEXOL 350 MG/ML 100 ML BOTTLE INJ ONE (10:21)
[2016-09-19] MEDS ORDERED: NITROGLYCERIN SL TABS 0.4 MG TAB SUBLINGUAL PRN ×2 (10:22→10:23)
[2016-09-19] MEDS ORDERED: ATROPINE SULFATE 0.1 MG/ML 10ML SYRINGE IV PRN (10:23)
[2016-09-19] MEDS ORDERED: RX INFO: IV CONTRAST WAS GIVEN 1 EACH MISC MISCELLANE PRN (10:23)
[2016-09-19] MEDS ORDERED: ZOLPIDEM 5 MG TAB PO PRN (10:23)
[2016-09-19] MEDS ORDERED: MAG HYDROX/AL HYDROX/SIMETH 30 ML CUP PO PRN (10:23)
[2016-09-19 11:58] VITALS: BMI 34.6
[2016-09-19] MEDS: SODIUM CHLORIDE 0.9% 1,000 ML IV SCH ×2 (12:29→14:03)
[2016-09-19] MEDS: HYDROcodone/APAP 10-325MG 1 EACH TAB PO PRN ×2 (14:02→20:13)
[2016-09-19] MEDS: TICAGRELOR 90 MG TAB PO SCH (20:13)
[2016-09-19] MEDS: METOPROLOL TARTRATE 25 MG TAB PO SCH (20:13)
--- NOTE | 2016-09-19 21:15 | PTCA ---
DATE OF SERVICE: 09/19/2016 PERFORMING PHYSICIAN: John Montoya MD, oceanographer assistant. PROCEDURE PERFORMED: Successful stenting of the mid left circumflex coronary artery using 2.25 x 12 mm Xience DUNCAN with a good angiographic results. INDICATIONS: This is a pleasant 40-year-old female patient who sees Dr. Porsha Correia as an outpatient, who presented to the hospital a few weeks ago with acute anterior ST elevation MT and was found to have occluded LAD. She underwent stenting of the LAD and was found to have severe disease involving the mid left circumflex. APPROACH: Right common femoral artery. COMPLICATIONS: None. LEVEL OF SEDATION: Moderate. PROCEDURE DESCRIPTION: After obtaining informed consent, the patient was brought to the cardiac cathode maker. The right groin was prepped in the usual sterile fashion. Local analgesia was achieved by injecting 2% Xylocaine subcutaneously into the right groin. The right common femoral artery was cannulated using micropuncture technique. The micropuncture wire passed easily, then I placed a 6 [place] sheath in the right common femoral artery. At that point, anticoagulation was initiated using Angiomax. Subsequently, I engaged the left main using an XB35 guide. After that, I did wire the left circumflex using a whisper wire. I did balloon angioplasty initially using a 2.0 x 8 mm balloon, which was inflated under 14 atmospheres then I deployed 2.25 x 12 mm Xience DUNCAN, where the stent was positioned under fluoroscopy guidance and deployed under 12 atmospheres for 20 seconds. The following angiogram showed good angiographic result without perforation and without dissection with good flow. The left circumflex system still had intermediate lesion in the proximal portion, seems to be in the range of 50%. CONCLUSION: Successful stenting of the mid left circumflex using 2.25 x 12 mm Xience DUNCAN with a good angiographic result. POSTPROCEDURE MANAGEMENT: 1. Dual antiplatelet therapy. 2. Risk factor modifications. 3. Follow-up with the patient.
--- NOTE | 2016-09-19 21:23 | LTR ---
September 19, 2016 RE: Sahara Denise Dear Brenden, . Sahara Denise underwent successful stenting of the mid left circumflex with good angiographic results and without any complication. Thank you for allowing us to participate in her care. Please do not hesitate to call if you have any question or concern. Sincerely, JAZZY CROWE MD
[2016-09-20] MEDS: HYDROcodone/APAP 10-325MG 1 EACH TAB PO PRN ×2 (02:08→08:09)
[2016-09-20 03:52] VITALS: RESP 16; TEMP 97
[2016-09-20 06:38] LABS: Basophils % (A) 1 %; CH 31.9; CHCM 32.7; Eosinophils # (A) 0.2 k/uL (0-0.7); Eosinophils % (A) 3 %; HCT 37.7 % (34.0-46.0); HDW 2.38; HGB 12.2 gm/dL (11.4-16.0); Luc # (Auto) 0.11; Luc % (Auto) 2; Lymphocytes # (A) 2.1 k/uL (1.0-4.8); Lymphocytes % (A) 40 %; MCH 31.8 pg (25.0-35.0); MCHC 32.4 g/dL (31.0-37.0); MCV 98.2 fL (80.0-100.0); Mean Platelet Volume 7.2; Monocytes # (A) 0.3 k/uL (0-1.0); Monocytes % (A) 5 %; Neutrophils # (A) 2.5 k/uL (1.3-7.7); Neutrophils % (A) 49 %; RBC 3.84 m/uL (3.80-5.40); RDW 13.9 % (11.5-15.5); WBC 5.2 k/uL (3.8-10.6); WBC (Perox) 5.62
[2016-09-20 06:46] LABS: Anion Gap 7 mmol/L; Blood Urea Nitrogen 10 mg/dL (7-17); Calcium 8.4 mg/dL (8.4-10.2); Carbon Dioxide 20 mmol/L (22-30); Chloride 110 mmol/L (98-107); Glucose 87 mg/dL (74-99); Non-African American GFR(MDRD) >60 (>60 ml/min/1.73 sqM); Potassium 4.3 mmol/L (3.5-5.1); Sodium 137 mmol/L (137-145)
[2016-09-20] MEDS: TICAGRELOR 90 MG TAB PO SCH (08:09)
[2016-09-20] MEDS: METOPROLOL TARTRATE 25 MG TAB PO SCH (08:09)
[2016-09-20] MEDS ORDERED: ATORVASTATIN 80 MG TAB PO SCH (09:00)
[2016-09-20] MEDS ORDERED: ASPIRIN 81 MG CHEW PO SCH (09:00)
[2016-09-20 09:49] VITALS: BP 110/68; PULSE 93
--- NOTE | 2016-09-21 07:45 | DS ---
DATE OF ADMISSION: 09/19/2016 DATE OF DISCHARGE: 09/20/2016 BRIEF HISTORY: This is a pleasant 40-year-old female patient who sees Dr. Porsha Correia as an outpatient with a past medical history significant for coronary artery disease and prior stenting of the LAD, was admitted to the hospital yesterday and underwent successful stenting of the left circumflex with a good angiographic result and without complication. The procedure was performed from the right groin, which seems to be soft and nontender and without any bruises. The patient is going to be discharged home today and she will follow up with Dr. Correia as an outpatient.
== END 2016-09-20 10:11 | disposition home or self-care (01) ==
LOC: CATHCVL 08:57 → 6SEL 10:21 → CATHCVL 09-20 10:11
PROVIDERS: ATTEND Internal Medicine Interventional Cardiology
DX: I10 Essential (primary) hypertension (principal); E78.2 Mixed hyperlipidemia; I25.2 Old myocardial infarction; F17.210 Nicotine dependence, cigarettes, uncomplicated; Z95.5 Presence of coronary angioplasty implant and graft; Z79.82 Long term (current) use of aspirin; Z79.899 Other long term (current) drug therapy; Z88.3 Allergy status to other anti-infective agents
CPT/HCPCS: 80048 ×2; 85025 ×2; C9600; C1769 ×4; C1725; C1887; C1894; C1874; J2001; J2250; Q9967; J0583

== ENCOUNTER 2016-10-19 03:22 | Emergency (ER) | payer MEDICARE, OTHER ==
[2016-10-19 03:35] VITALS: BP 127/82; PULSE 98; RESP 20; TEMP 97.7
[2016-10-19] MEDS ORDERED: MORPHINE SULFATE 4 MG/ML SYRINGE IV STA (03:59)
[2016-10-19] MEDS ORDERED: SODIUM CHLORIDE 0.9% 1,000 ML IV STA ×2 (03:59)
--- NOTE | 2016-10-19 04:12 | ED ---
General Adult HPI - General Chief complaint: Abdominal Pain Stated complaint: side pain Time Seen by Provider: 10/19/16 03:46 Source: patient, RN notes reviewed, old records reviewed Mode of arrival: ambulatory Limitations: no limitations - History of Present Illness Initial comments: This is a 41-year-old female ER for evaluation. This patient presents for evaluation of flank pain, left-sided flank pain. Patient is competent and prolonged medical history revolving around heart disease, history of multiple stents with recent stents month ago and medical comorbidities of the same. Patient has no fevers. Symptoms are not for about a week but getting progressively worse. Patient's bowel pain is located in the left flank and seems to come and go its crampy in muscle ache in nature and does persist. She does take pain medication at home with no help. Patient denies urinary symptoms , states she has had history of kidney stones - Related Data Home Medications Medication Instructions Recorded Confirmed Albuterol Sulfate [Proair Hfa] 2 puff INHALATION RT-Q6H PRN 10/20/16 10/20/16 Previous Rx's Medication Instructions Recorded Aspirin 81 mg PO DAILY #30 chew 08/16/16 Atorvastatin [Lipitor] 80 mg PO DAILY #30 tab 08/16/16 Metoprolol Tartrate [Lopressor] 25 mg PO BID #60 tab 08/16/16 Nitroglycerin Sl Tabs [Nitrostat] 0.4 mg SUBLINGUAL Q5M PRN #25 tab 08/16/16 Ticagrelor [Brilinta] 90 mg PO BID #60 tab 08/16/16 Divalproex [Depakote] 250 mg PO TID #90 tablet. 10/22/16 Ketorolac [Toradol] 10 mg PO Q6HR PRN #24 tab 10/22/16 Ondansetron HCl [Zofran] 4 mg PO Q6HR PRN #30 tablet 10/22/16 Sulfamethox-Tmp 800-160Mg [Bactrim 1 tab PO Q12HR #28 tab 10/22/16 DS 800-160 mg] oxyCODONE-APAP 7.5-325MG [Percocet 1 tab PO Q6HR PRN #30 tab 10/22/16 7.5-325 mg] Allergies Allergy/AdvReac Type Severity Reaction Status Date / Time moxifloxacin HCl Allergy Rash/Hives Verified 10/21/16 01:58 [From Avelox] Review of Systems ROS Statement: Those systems with pertinent positive or pertinent negative responses have been documented in the HPI. ROS Other: All systems not noted in ROS Statement are negative. Past Medical History Past Medical History: Coronary Artery Disease (CAD), Chest Pain / Angina, Fibromyalgia, GERD/Reflux, Hyperlipidemia, Myocardial Infarction ([place]), Osteoarthritis (OA), Pneumonia Additional Past Medical History / Comment(s): [place] X2, lumbar DDD, lumbar facet arthropathy, low back pain, occ migraine, past medical records indicate HTN but pt denies. Last Myocardial Infarction Date:: 03/02/15 History of Any Multi-Drug Resistant Organisms: None Reported Past Surgical History: Heart Catheterization, Heart Catheterization With Stent Additional Past Surgical History / Comment(s): 03/03/15 PTCA with stent to RCA. Other SX HX: 2003 LAD stent, 2008 RCA with 3 stents, 2008 PDA stent, 2009 CX stent, 2010 proximal diag stent, 2012 OM stent, 2014 stent 2 to RCA ,several PAIN CLINIC PROCEDURES Past Anesthesia/Blood Transfusion Reactions: No Reported Reaction Date of Last Stent Placement:: 08-13-16 Past Psychological History: Anxiety, Bipolar, Depression Additional Psychological History / Comment(s): Pt lives with boyfriend. Smoking Status: Current every day smoker Past Alcohol Use History: Occasional Additional Past Alcohol Use History / Comment(s): Pt states she started smoking in 1988 and smoked about 1 ppd-quit may 2016. She occasionally drinks alcohol, less that 7 per week. Past Drug Use History: None Reported - Past Family History Mother Family Medical History: Coronary Artery Disease (CAD), Fibromyalgia, Hyperlipidemia Additional Family Medical History / Comment(s): heart disease Father Family Medical History: CVA/TIA, Fibromyalgia, Hyperlipidemia, Hypertension, Musculoskeletal Disorder Additional Family Medical History / Comment(s): MS Sister(s) History Unknown: Yes General Exam Limitations: no limitations General appearance: alert, in no apparent distress Head exam: Present: atraumatic, normocephalic, normal inspection Eye exam: Present: normal appearance, PERRL, EOMI. Absent: scleral icterus, conjunctival injection, periorbital swelling ENT exam: Present: normal exam, mucous membranes moist Neck exam: Present: normal inspection. Absent: tenderness, meningismus, lymphadenopathy Respiratory exam: Present: normal lung sounds bilaterally. Absent: respiratory distress, wheezes, rales, rhonchi, stridor Cardiovascular Exam: Present: regular rate, normal rhythm, normal heart sounds. Absent: systolic murmur, diastolic murmur, rubs, gallop, clicks GI/Abdominal exam: Present: soft, normal bowel sounds. Absent: distended, tenderness, guarding, rebound, rigid Extremities exam: Present: normal inspection, full ROM, normal capillary refill. Absent: tenderness, pedal edema, joint swelling, calf tenderness Back exam: Present: normal inspection Neurological exam: Present: alert, oriented X3, CN II-XII intact Psychiatric exam: Present: normal affect, normal mood Skin exam: Present: warm, dry, intact, normal color. Absent: rash Course Vital Signs 10/19/16 03:32 Temperature 97.7 F Pulse Rate 98 Respiratory 20 Rate Blood Pressure 127/82 O2 Sat by Pulse 98 Oximetry Medical Decision Making - Medical Decision Making 41 female here with masses and bowel pain. Patient not requesting any treatment at this time, patient leaving without further evaluation and management, patient states she has not seen an appropriate time and did not get a pain medication quick enough and will sign out against medical advise Disposition Clinical Impression: Abdominal pain Disposition: Left Against Medical Advice Condition: Undetermined Referrals: Brenden Rodriguez MD [Primary Care Provider] - 1-2 days
== END 2016-10-19 04:32 | disposition left against medical advice (07) ==
LOC: EC 03:22
DX: R10.9 Unspecified abdominal pain (principal); I25.119 Atherosclerotic heart disease of native coronary artery with unspecified angina pectoris; E78.5 Hyperlipidemia, unspecified; F17.200 Nicotine dependence, unspecified, uncomplicated; I25.2 Old myocardial infarction; Z95.5 Presence of coronary angioplasty implant and graft; Z79.82 Long term (current) use of aspirin; Z79.02 Long term (current) use of antithrombotics/antiplatelets; Z79.899 Other long term (current) drug therapy; Z88.1 Allergy status to other antibiotic agents; Z87.442 Personal history of urinary calculi
CPT/HCPCS: 99284

== ENCOUNTER 2016-10-20 22:52 | Observation (INO) | payer MEDICARE, OTHER ==
[2016-10-21] MEDS ORDERED: HEPARIN SODIUM,PORCINE 5,000 UNIT/ML 1 ML VIAL IV ONE (00:02)
[2016-10-21] MEDS ORDERED: ASPIRIN 81 MG CHEW PO STA (00:02)
[2016-10-21 00:08] LABS: Basophils # (A) 0.1 k/uL (0-0.2); Basophils % (A) 1 %; CH 31.6; CHCM 32.7; Eosinophils # (A) 0.2 k/uL (0-0.7); Eosinophils % (A) 3 %; HCT 40.1 % (34.0-46.0); HDW 2.36; HGB 13.1 gm/dL (11.4-16.0); Luc # (Auto) 0.13; Luc % (Auto) 2; Lymphocytes # (A) 2.2 k/uL (1.0-4.8); Lymphocytes % (A) 33 %; MCH 31.9 pg (25.0-35.0); MCHC 32.8 g/dL (31.0-37.0); MCV 97.3 fL (80.0-100.0); Mean Platelet Volume 7.1; Monocytes # (A) 0.4 k/uL (0-1.0); Monocytes % (A) 6 %; Neutrophils # (A) 3.6 k/uL (1.3-7.7); Neutrophils % (A) 55 %; RBC 4.12 m/uL (3.80-5.40); RDW 14.3 % (11.5-15.5); WBC 6.5 k/uL (3.8-10.6); WBC (Perox) 6.25
[2016-10-21 00:12] LABS: Appearance,Urine Clear (Clear); Bilirubin,Urine Negative (Negative); Glucose,Urine (UA) Negative (Negative); Ketones,Urine Negative (Negative); Leukocyte Esterase,Urine Moderate (Negative); Nitrite,Urine Negative (Negative); Particle Count 6433; Protein,Urine 1+ (Negative); RBC,Urine >182 /hpf (0-5); Specific Gravity,Urine 1.007 (1.001-1.035); UA Billing (MACRO vs. MICRO) MICRO; Urobilinogen,Urine <2.0 mg/dL (<2.0); WBC,Urine >182 /hpf (0-5)
[2016-10-21 00:15] LABS: ALT 40 U/L (9-52); AST 18 U/L (14-36); Alkaline Phosphatase 91 U/L (38-126); Amylase 34 U/L (30-110); Anion Gap 9 mmol/L; Blood Urea Nitrogen 10 mg/dL (7-17); Carbon Dioxide 24 mmol/L (22-30); Chloride 108 mmol/L (98-107); Glucose 94 mg/dL (74-99); Magnesium 1.8 mg/dL (1.6-2.3); Non-African American GFR(MDRD) >60 (>60 ml/min/1.73 sqM); Potassium 3.7 mmol/L (3.5-5.1); Sodium 141 mmol/L (137-145); Total Bilirubin 0.5 mg/dL (0.2-1.3); Total Protein 6.5 g/dL (6.3-8.2)
[2016-10-21] MEDS: NITROGLYCERIN SL TABS 0.4 MG TAB SUBLINGUAL STA ×2 (00:15→00:25)
[2016-10-21] MEDS ORDERED: HEPARIN SODIUM,PORCINE/D5W PMX 25,000 UNIT in DEXTROSE/WATER 1 500ML.BAG IV SCH (00:15)
--- NOTE | 2016-10-21 00:29 | XR ---
EXAM: XR Chest, 1 View. CLINICAL HISTORY: Reason: chest pain TECHNIQUE: Frontal view of the chest. COMPARISON: Chest radiograph on 08/13/2016 FINDINGS: Hardware: None. Lungs/pleura: Mild left basilar atelectasis. No focal consolidation. No pleural effusion or pneumothorax. Heart/mediastinum: Normal. No cardiomegaly. Soft tissues: Unremarkable. Bones: No acute fracture. Density overlying the right humeral head may be external to the patient/artifact. Upper abdomen: Normal. IMPRESSION: No acute disease.
--- NOTE | 2016-10-21 01:19 | ED ---
Chest Pain HPI - General Chief Complaint: Chest Pain Stated Complaint: side pain,chest pain Time Seen by Provider: 10/20/16 23:20 Source: patient Mode of arrival: wheelchair Limitations: no limitations - History of Present Illness Initial Comments: This patient is a 41-year-old woman who presents with pain to the left costal margin in the left flank that is been going on for 2-3 days. The patient states that she had been to [facility] for this pain where she had some workup including CT. She followed up with her physician in the clinic. When the pain did not improve she felt she should be reevaluated and presents here. The patient indicates that the pain is constant, aching, severe. She states that now there is a component of that reminds her of previous pain she had when she required stenting. MD Complaint: chest pain Onset/Timin -: days(s) Onset: during rest Pain Location: left chest Pain Radiation: none Severity: moderate Quality: aching Consistency: constant Improves With: nothing Worsens With: nothing - Related Data Home Medications Medication Instructions Recorded Confirmed HYDROcodone/APAP 10-325MG [[place] 1 tab PO TID PRN 08/08/16 10/20/16 10-325] Albuterol Sulfate [Proair Hfa] 2 puff INHALATION RT-Q6H PRN 10/20/16 10/20/16 Previous Rx's Medication Instructions Recorded Aspirin 81 mg PO DAILY #30 chew 08/16/16 Atorvastatin [Lipitor] 80 mg PO DAILY #30 tab 08/16/16 Metoprolol Tartrate [Lopressor] 25 mg PO BID #60 tab 08/16/16 Nitroglycerin Sl Tabs [Nitrostat] 0.4 mg SUBLINGUAL Q5M PRN #25 tab 08/16/16 Ticagrelor [Brilinta] 90 mg PO BID #60 tab 08/16/16 Allergies Allergy/AdvReac Type Severity Reaction Status Date / Time moxifloxacin HCl Allergy Rash/Hives Verified 10/21/16 01:58 [From Avelox] Review of Systems ROS Statement: Those systems with pertinent positive or pertinent negative responses have been documented in the HPI. ROS Other: All systems not noted in ROS Statement are negative. Constitutional: Denies: fever, chills Respiratory: Denies: cough, dyspnea, wheezes Cardiovascular: Reports: chest pain. Denies: palpitations, edema Gastrointestinal: Reports: nausea. Denies: abdominal pain, vomiting, diarrhea Genitourinary: Reports: hematuria. Denies: dysuria, frequency Musculoskeletal: Denies: back pain Skin: Denies: rash Neurological: Denies: headache, weakness, numbness EKG Findings - EKG Results: EKG: interpreted by ERMD, sinus rhythm (Rate 84 bpm), normal axis, normal QRS - Blocks, [place], Hypertrophy, ST Abn: Repolarization changes or abnormalities: nonspecific abnormality, ST segment, and/or T wave Past Medical History Past Medical History: Coronary Artery Disease (CAD), Chest Pain / Angina, Fibromyalgia, GERD/Reflux, Hyperlipidemia, Myocardial Infarction ([place]), Osteoarthritis (OA), Pneumonia Additional Past Medical History / Comment(s): [place] X2, lumbar DDD, lumbar facet arthropathy, low back pain, occ migraine, past medical records indicate HTN but pt denies. Last Myocardial Infarction Date:: 03/02/15 History of Any Multi-Drug Resistant Organisms: None Reported Past Surgical History: Heart Catheterization, Heart Catheterization With Stent Additional Past Surgical History / Comment(s): 03/03/15 PTCA with stent to RCA. Other SX HX: 2003 LAD stent, 2008 RCA with 3 stents, 2008 PDA stent, 2009 CX stent, 2010 proximal diag stent, 2012 OM stent, 2014 stent 2 to RCA ,several PAIN CLINIC PROCEDURES Past Anesthesia/Blood Transfusion Reactions: No Reported Reaction Date of Last Stent Placement:: 08-13-16 Past Psychological History: Anxiety, Bipolar, Depression Additional Psychological History / Comment(s): Pt lives with boyfriend. Smoking Status: Current every day smoker Past Alcohol Use History: Occasional Additional Past Alcohol Use History / Comment(s): Pt states she started smoking in 1988 and smoked about 1 ppd-quit may 2016. She occasionally drinks alcohol, less that 7 per week. Past Drug Use History: None Reported - Past Family History Mother Family Medical History: Coronary Artery Disease (CAD), Fibromyalgia, Hyperlipidemia Additional Family Medical History / Comment(s): heart disease Father Family Medical History: CVA/TIA, Fibromyalgia, Hyperlipidemia, Hypertension, Musculoskeletal Disorder Additional Family Medical History / Comment(s): MS Sister(s) History Unknown: Yes General Exam Limitations: no limitations General appearance: alert, in no apparent distress Head exam: Present: atraumatic, normocephalic Eye exam: Present: normal appearance. Absent: scleral icterus, conjunctival injection Neck exam: Present: normal inspection Respiratory exam: Present: normal lung sounds bilaterally, chest wall tenderness. Absent: respiratory distress, wheezes, rales, rhonchi, stridor Cardiovascular Exam: Present: regular rate, normal rhythm, normal heart sounds. Absent: systolic murmur, diastolic murmur, rubs, gallop GI/Abdominal exam: Present: soft. Absent: distended, tenderness, guarding, rebound Extremities exam: Present: normal inspection, normal capillary refill. Absent: pedal edema, calf tenderness Back exam: Absent: CVA tenderness (R), CVA tenderness (L) Neurological exam: Present: alert Skin exam: Present: warm, dry, intact, normal color. Absent: rash Course Vital Signs 10/20/16 10/20/16 10/21/16 23:03 23:25 00:23 Temperature 98.3 F Pulse Rate 96 68 80 Respiratory 18 20 20 Rate Blood Pressure 126/70 153/106 119/72 O2 Sat by Pulse 97 99 95 Oximetry 10/21/16 10/21/16 10/21/16 00:25 00:39 01:37 Temperature 98.2 F 97.8 F Pulse Rate 74 82 96 Respiratory 20 18 18 Rate Blood Pressure 125/75 125/75 141/91 O2 Sat by Pulse 94 L 96 100 Oximetry Chest Pain MDM - MDM This patient is a 41-year-old woman with history of previous coronary artery disease who presents with atypical left-sided chest pain. She does state that now there are some symptoms that remind her of the pain she had associated with previous stents. Initial cardiac workup is negative. We'll heparinize patient and have cardiology consultation as well as serial cardiac enzymes and telemetry monitoring. Critical Care Time Critical Care Time: Yes (35 minutes) Disposition Clinical Impression: Chest pain Disposition: ADMITTED IP TO THIS HOSP Condition: Fair
[2016-10-21] MEDS: TICAGRELOR 90 MG TAB PO SCH ×2 (01:39→21:09)
[2016-10-21] MEDS: ONDANSETRON 4 MG/2 ML VIAL IVP PRN ×2 (02:00→21:09)
[2016-10-21 02:08] VITALS: BMI 34.7
[2016-10-21] MEDS: MORPHINE SULFATE 2 MG/ML SYRINGE IVP PRN ×5 (02:30→21:56)
[2016-10-21] MEDS: HYDROcodone/APAP 10-325MG 1 EACH TAB PO PRN ×2 (04:17→12:21)
[2016-10-21] MEDS: ALBUTEROL NEBULIZED 2.5 MG/3 ML INHALATION PRN ×3 (07:34→19:17)
[2016-10-21 08:02] LABS: Creatine Kinase 83 U/L (30-135)
[2016-10-21 08:13] LABS: Creatine Kinase MB 0.7 ng/mL (0.0-2.4); Troponin I <0.012 ng/mL (0.000-0.034)
[2016-10-21] MEDS: METOPROLOL TARTRATE 25 MG TAB PO SCH ×2 (09:48→21:08)
--- NOTE | 2016-10-21 09:49 | CONS ---
DATE OF CONSULTATION: CHIEF COMPLAINT: Flank pain. HISTORY OF PRESENT ILLNESS: This is a 41-year-old lady with history of coronary artery disease, status post multivessel angioplasty who presents to hospital primarily complaining of initially with flank pain and subsequently with chest pain. She has known coronary artery disease and has a totally occluded LAD and stent within the ramus intermedius and 70% to 80% stenosis involving circumflex coronary artery and a 70% to 80% stenosis involving the ostial portion of the PDA. Right coronary artery was previously stented and was patent. The patient underwent angioplasty of the proximal LAD in July 2016 and then subsequently had angioplasty of mid circumflex coronary artery. This was done electively. Patient initially developed flank pain over the last several days and is currently being evaluated in the outpatient setting by Dr. Rodriguez and along the way over the last 2 days she also had some chest discomfort and took nitroglycerin. Following this, she went to an urgent care center and subsequently came to the hospital and was admitted with unstable angina. Her predominant problem seems to be the flank pain and she does not have any episodes of angina. She has had multiple prior coronary ischemic events and her chest discomfort from that time is different. Since admission she has had 2 sets of troponins that are negative. EKG shows sinus rhythm with nonspecific ST-T wave changes. Past medical history is significant for multivessel coronary artery disease, hypertension, dyslipidemia. Current medications include Brilinta 90 b.i.d., sublingual nitroglycerin p.r.n. basis, Lopressor 25 b.i.d., [place], Lipitor 80 q. daily, aspirin and ProAir. Patient is allergic to AVELOX. Family history is significant for premature coronary artery disease. Social history is negative for current smoking, EtOH abuse, or drug abuse. REVIEW OF SYSTEMS: HEENT: Unremarkable. CARDIAC: As described above. RESPIRATORY: Negative. GI: Significant for left flank pain. GENITOURINARY: Negative. ALLERGY/IMMUNOLOGICAL: Negative. MUSCULOSKELETAL: Negative. ENDOCRINE: Negative. HEMATOLOGIC: Negative. DERMATOLOGY: Negative. CONSTITUTIONAL: Negative. ONCOLOGICAL: Negative. The rest of the system review is not relevant. On exam, she appears comfortable at rest. Vital signs are stable. There is no jugular venous distention. Chest is clear to auscultation and percussion. Heart exam reveals first and second heart sounds. No gallop. No murmur, no rub. Abdomen is soft, nontender. Exam of extremities did not reveal any edema. Peripheral pulses are felt. AG[employer] exam did not reveal focal neurological deficits. ASSESSMENT: 1. Precordial chest pain, myocardial infarction ruled out in a patient with known coronary artery disease, status post multivessel angioplasty. 2. Left flank pain workup in progress. 3. Dyslipidemia. PLAN: The patient's chest discomfort does not seem typical. She has had multivessel angioplasty including angioplasty of an LAD and circumflex coronary artery within the last few months. Once the flank pain issues resolve if she continues to have chest discomfort, we will consider invasive angiography on her. I discussed these issues at length with the patient. Patient does not wish to go through any cardiac cath at this time unless it is absolutely necessary. Thank you for allowing us to participate in the care of this pleasant lady.
[2016-10-21] MEDS: ATORVASTATIN 80 MG TAB PO SCH (10:31)
--- NOTE | 2016-10-21 10:56 | ECHOF ---
Referral Reason:cp MEASUREMENTS -------- HEIGHT: 157.5 cm WEIGHT: 86.2 kg BP: 129/80 RVIDd: 2.1 cm (< 3.3) IVSd: 0.7 cm (0.6 - 1.1) LVIDd: 5.4 cm (3.9 - 5.3) LVPWd: 0.9 cm (0.6 - 1.1) IVSs: 0.9 cm LVIDs: 4.8 cm LVPWs: 1.0 cm LA Diam: 3.3 cm (2.7 - 3.8) LAESV Index (A-L): 25.41 ml/m Ao Diam: 2.9 cm (2.0 - 3.7) AV Cusp: 1.7 cm (1.5 - 2.6) LA Diam: 3.5 cm (2.7 - 3.8) MV EXCURSION: 15.271 mm (> 18.000) MV EF SLOPE: 77 mm/s (70 - 150) EPSS: 2.0 cm MV E Alfie: 1.10 m/s MV DecT: 233 ms MV A Alfie: 0.76 m/s MV E/A Ratio: 1.45 RAP: 5.00 mmHg RVSP: 29.77 mmHg FINDINGS -------- Sinus rhythm. This was a technically adequate study. The left ventricle is mildly dilated. Left ventricular wall thickness is normal. Overall left ventricular systolic function is severely impaired with, an EF between 20 - 25 %. Basal anterior LV wall motion is akinetic. Basal anteroseptal LV wall motion is akinetic. Mid anterior LV wall motion is akinetic. Mid lateral LV wall motion is akinetic. Mid anteroseptal LV wall motion is akinetic. Apical anterior LV wall motion is akinetic. Apical lateral LV wall motion is akinetic. Apical septum LV wall motion is akinetic. The right ventricle is normal in size. Normal LA size by volume 22+/-6 ml/m2. The right atrium is normal in size. The aortic valve is trileaflet, and appears structurally normal. No aortic stenosis or regurgitation. The mitral valve is normal. Mild mitral regurgitation is present. The tricuspid valve appears structurally normal. Mild tricuspid regurgitation present. Right ventricular systolic pressure is normal at < 35 mmHg. There is no pulmonic regurgitation present. The aortic root size is normal. Normal inferior vena cava with normal inspiratory collapse consistent with estimated right atrial pressure of 5 mmHg. There is no pericardial effusion. CONCLUSIONS -------- 1. Sinus rhythm. 2. Mid anteroseptal LV wall motion is akinetic. 3. Apical anterior LV wall motion is akinetic. 4. Apical lateral LV wall motion is akinetic. 5. Apical septum LV wall motion is akinetic. 6. Normal LA size by volume 22+/-6 ml/m2. 7. The aortic valve is trileaflet, and appears structurally normal. No aortic stenosis or regurgitation. 8. Mild mitral regurgitation is present. 9. Mild tricuspid regurgitation present. 10. Right ventricular systolic pressure is normal at < 35 mmHg. 11. There is no pulmonic regurgitation present. 12. This was a technically adequate study. 13. The aortic root size is normal. 14. Normal inferior vena cava with normal inspiratory collapse consistent with estimated right atrial pressure of 5 mmHg. 15. There is no pericardial effusion. 16. The left ventricle is mildly dilated. 17. Left ventricular wall thickness is normal. 18. Overall left ventricular systolic function is severely impaired with, an EF between 20 - 25 %. 19. Basal anterior LV wall motion is akinetic. 20. Basal anteroseptal LV wall motion is akinetic. 21. Mid anterior LV wall motion is akinetic. 22. Mid lateral LV wall motion is akinetic. PARLOR MAID: Tomer Amaral RDCS
[2016-10-21 11:38] LABS: Creatine Kinase 81 U/L (30-135)
[2016-10-21 11:51] LABS: Creatine Kinase MB 0.7 ng/mL (0.0-2.4); Troponin I <0.012 ng/mL (0.000-0.034)
[2016-10-21] MEDS: NITROGLYCERIN SL TABS 0.4 MG TAB SUBLINGUAL PRN ×2 (12:27→17:16)
--- NOTE | 2016-10-21 15:54 | P.HPIM ---
History of Present Illness H&P Date: 10/21/16 Chief Complaint: Left flank pain, chest pain Patient is a 41-year-old white male, patient of Dr. Rodriguez in the outpatient setting, with medical history significant for myocardial infarction, coronary artery disease status post angioplasty of an LAD and circumflex coronary artery within the last few months, presenting to the emergency department with complaints of left costal margin in the left flank pain radiating to her back ongoing for 2-3 days. Patient was previously at [facility] where she had a CT of the abdomen and pelvis with no apparent evidence of kidney stones and patient states she was diagnosed with flank contusion. Patient states that pain was unmanageable at home and she was worried about possible chest pain so she came to the emergency department at [facility]. Chest x-ray with no evidence of acute process. EKG with evidence of normal sinus rhythm nonspecific T-wave abnormality. Troponins negative 3. Urinalysis with evidence of large amount of blood, moderate leukocyte esterase, and greater than 182 WBC. Patient was admitted for observation with cardiology consult. Cardiology did evaluate patient and felt that patient's chest discomfort was atypical. Per cardiology notes, cardiology service would consider invasive angiographically if chest discomfort persist with left flank pain has resolved. Upon examination, patient states she has needed tremendous amount of pain medication and is currently just settling into where her left flank pain is a 1 out of 10. Patient reports pain is exacerbated with activity. Patient reports nausea without vomiting. Denies chills, fevers, shortness of breath, or chest pain. Denies constipation or diarrhea. Patient states that her fibromyalgia is flaring up again also. Past Medical History Past Medical History: Coronary Artery Disease (CAD), Chest Pain / Angina, Fibromyalgia, GERD/Reflux, Hyperlipidemia, Myocardial Infarction ([place]), Osteoarthritis (OA), Pneumonia Additional Past Medical History / Comment(s): [place] X2, lumbar DDD, lumbar facet arthropathy, low back pain, occ migraine, past medical records indicate HTN but pt denies. Last Myocardial Infarction Date:: 03/02/15 History of Any Multi-Drug Resistant Organisms: None Reported Past Surgical History: Heart Catheterization, Heart Catheterization With Stent Additional Past Surgical History / Comment(s): 03/03/15 PTCA with stent to RCA. Other SX HX: 2003 LAD stent, 2008 RCA with 3 stents, 2008 PDA stent, 2010 CX stent, 2011 proximal diag stent, 2013 OM stent, 2015 stent 2 to RCA ,several PAIN CLINIC PROCEDURES Past Anesthesia/Blood Transfusion Reactions: No Reported Reaction Date of Last Stent Placement:: 08-13-16 Past Psychological History: Anxiety, Bipolar, Depression Additional Psychological History / Comment(s): Pt lives with boyfriend. Smoking Status: Current every day smoker Past Alcohol Use History: Occasional Additional Past Alcohol Use History / Comment(s): Pt states she started smoking in 1988 and smoked about 1 ppd-quit may 2016. She occasionally drinks alcohol, less that 7 per week. Past Drug Use History: None Reported - Past Family History Mother Family Medical History: Coronary Artery Disease (CAD), Fibromyalgia, Hyperlipidemia Additional Family Medical History / Comment(s): heart disease Father Family Medical History: CVA/TIA, Fibromyalgia, Hyperlipidemia, Hypertension, Musculoskeletal Disorder Additional Family Medical History / Comment(s): MS Sister(s) History Unknown: Yes Family Medical History: Hyperlipidemia Medications and Allergies Home Medications Medication Instructions Recorded Confirmed Type HYDROcodone/APAP 10-325MG [[place] 1 tab PO TID PRN 08/08/16 10/20/16 History 10-325] Albuterol Sulfate [Proair Hfa] 2 puff INHALATION RT-Q6H PRN 10/20/16 10/20/16 History Allergies Allergy/AdvReac Type Severity Reaction Status Date / Time moxifloxacin HCl Allergy Rash/Hives Verified 10/21/16 01:58 [From Avelox] Physical Exam Vitals: Vital Signs Temp Pulse Pulse Pulse Resp BP BP 10/21/16 12:00 98.6 F 65 18 110/73 10/21/16 11:17 82 10/21/16 11:10 82 10/21/16 08:00 97.2 F L 81 18 129/80 10/21/16 07:42 82 10/21/16 07:36 82 10/21/16 04:00 98 F 74 16 128/71 10/21/16 02:43 16 10/21/16 01:50 98.1 F 84 16 140/82 10/21/16 01:37 97.8 F 96 18 141/91 Pulse Ox 10/21/16 12:00 97 10/21/16 11:17 10/21/16 11:10 10/21/16 08:00 95 10/21/16 07:42 10/21/16 07:36 10/21/16 04:00 94 L 10/21/16 02:43 10/21/16 01:50 100 10/21/16 01:37 100 Intake and Output 10/21/16 10/21/16 10/21/16 06:59 14:59 22:59 Intake Total 240 Balance 240 Intake: Oral 240 Other: Voiding Method Toilet # Voids 1 Weight 86.2 kg GENERAL: Pt awake and alert, well-nourished, and in no acute distress. HEAD: Atraumatic, normocephalic. EYES: Pupils equal, round, and reactive to light, extraocular movements intact, sclera anicteric, conjunctiva are normal. ENT: Moist mucous membranes. NECK:Supple without lymphadenopathy or JVD. LUNGS: Breath sounds clear to auscultation bilaterally. No wheezes, rales, or rhonchi. HEART: Heart S1, S2, no S3 or S4. Regular rate and rhythm. No murmurs, rubs or gallops. ABDOMEN: Soft, obese, left flank pain, nondistended, normoactive bowel sounds. No guarding, no rebound. No masses or organomegaly appreciated. EXTREMITIES: Palpable peripheral pulses. No edema. No calf tenderness. NEUROLOGICAL: Pt oriented x 3. No focal deficits noted. Strength and sensation grossly intact. PSYCH: Normal mood, normal affect. SKIN: Warm, dry, intact. Normal turgor. No rashes or lesions. Results CBC & Chem 7: 10/20/16 23:49 10/20/16 23:49 Chest x-ray: report reviewed Thrombosis Risk Factor Assmnt - DVT/VTE Prophylaxis DVT/VTE Prophylaxis: Low risk, early ambulation encouraged - Choose All That Apply Each Factor Represents 1 point: Age 41-60 years Thrombosis Risk Factor Assessment Total Risk Factor Score: 1 Thrombosis Risk Factor Assessment Level: Low Risk Assessment and Plan Plan: Impression and plan: 1. Atypical chest pain, myocardial infarction ruled out. Patient to follow-up with cardiology service as an outpatient if chest discomfort persist for cardiac catheterization. 2. Left flank pain, exact etiology at this time unknown. Will order a kidney ultrasound and renal Doppler. 3. Possible urinary tract infection. Will start patient on IV ceftriaxone. Urine culture pending. 4. Coronary artery disease with recent cardiac catheterization and stent placement. 5. Fibromyalgia. 6. Chronic back pain. 7. History of anxiety, bipolar, and depression. 8. Nicotine dependence. Continue to monitor patient. Home medications been reviewed and resumed. Will add Toradol for better pain control. Awaiting result of kidney ultrasound and renal Doppler ultrasound. Continue IV antibiotics. Encourage ambulation. Repeat CBC and BMP in a.m. The above impression and plan have been discussed and directed by Dr. Rodriguez. Anila MARIE acting as scribe for Dr. Rodriguez.
--- NOTE | 2016-10-21 17:41 | US ---
EXAMINATION TYPE: US kidneys/renal and bladder DATE OF EXAM: 10/21/2016 5:23 PM COMPARISON: NONE CLINICAL HISTORY: flank pain. EXAM MEASUREMENTS: Right Kidney: 11.4 x 4.4 x 4.3 cm Left Kidney: 11.7 x 6.2 x 4.7 cm Patient of large body habitus. Right Kidney: No hydronephrosis or masses seen Left Kidney: No hydronephrosis or masses seen Bladder: not seen, not distended There is no evidence for hydronephrosis at this point in time. No nephrolithiasis is seen. No hilary s are identified. The urinary bladder is anechoic. Bilateral ureteral jets are seen. IMPRESSION: NORMAL RENAL ULTRASOUND.
[2016-10-21 19:50] VITALS: RESP 18
[2016-10-21] MEDS: KETOROLAC 30 MG/ML 1 ML VIAL IVP PRN (21:09)
[2016-10-22] MEDS: MORPHINE SULFATE 2 MG/ML SYRINGE IVP PRN ×3 (01:54→13:05)
[2016-10-22] MEDS: ONDANSETRON 4 MG/2 ML VIAL IVP PRN ×2 (02:52→10:34)
[2016-10-22] MEDS: KETOROLAC 30 MG/ML 1 ML VIAL IVP PRN ×2 (02:52→10:33)
[2016-10-22 06:58] LABS: Basophils % (A) 1 %; CH 31.9; CHCM 32.5; Eosinophils # (A) 0.2 k/uL (0-0.7); Eosinophils % (A) 4 %; HCT 36.5 % (34.0-46.0); HDW 2.44; HGB 11.7 gm/dL (11.4-16.0); Luc # (Auto) 0.11; Luc % (Auto) 2; Lymphocytes % (A) 45 %; MCH 31.7 pg (25.0-35.0); MCHC 32.2 g/dL (31.0-37.0); MCV 98.7 fL (80.0-100.0); Mean Platelet Volume 7.9; Monocytes # (A) 0.2 k/uL (0-1.0); Monocytes % (A) 6 %; Neutrophils # (A) 1.9 k/uL (1.3-7.7); Neutrophils % (A) 42 %; RDW 14.3 % (11.5-15.5); WBC 4.5 k/uL (3.8-10.6); WBC (Perox) 4.99
[2016-10-22 07:11] LABS: Anion Gap 6 mmol/L; Blood Urea Nitrogen 8 mg/dL (7-17); Calcium 8.8 mg/dL (8.4-10.2); Carbon Dioxide 25 mmol/L (22-30); Chloride 110 mmol/L (98-107); Cholesterol 89 mg/dL (<200); Glucose 89 mg/dL (74-99); HDL Cholesterol 30 mg/dL (40-60); Non-African American GFR(MDRD) >60 (>60 ml/min/1.73 sqM); Potassium 4.2 mmol/L (3.5-5.1); Sodium 141 mmol/L (137-145); Triglycerides 106 mg/dL (<150)
[2016-10-22] MEDS: ALBUTEROL NEBULIZED 2.5 MG/3 ML INHALATION PRN (08:41)
[2016-10-22] MEDS ORDERED: ASPIRIN 81 MG CHEW PO SCH (09:00)
[2016-10-22] MEDS: TICAGRELOR 90 MG TAB PO SCH (09:06)
[2016-10-22] MEDS: ATORVASTATIN 80 MG TAB PO SCH (09:06)
[2016-10-22] MEDS: METOPROLOL TARTRATE 25 MG TAB PO SCH (10:07)
--- NOTE | 2016-10-22 11:48 | PN ---
Mrs. Denise is a 41-year-old female with known history of coronary artery disease, status post multivessel coronary angioplasty and stenting, history of ischemic cardiomyopathy who presented with left flank discomfort and has some mild chest discomfort. She still had the flank discomfort on the left side. She has no chest pain. She has no dizziness or palpitation. Her breathing has been stable. She has back pain as well. She continues to be on aspirin, Lipitor 80 mg daily, Brilinta 90 mg twice a day, metoprolol tartrate 25 mg twice a day. PHYSICAL EXAMINATION: Blood pressure running in the low hundreds to high 90s with the heart rate in the 60s. LUNGS: Clear. HEART: Regular rate and rhythm. S1, S2, no S3, no rub. ABDOMEN: Soft. Mild left flank discomfort. No rebound. EXTREMITIES: No edema. Lab data revealed troponin less than 0.012. BUN and creatinine of 8 and 0.81. Hemoglobin of 11.7. She had an echocardiogram that revealed evidence of ischemic cardiomyopathy with ejection fraction of 20% to 25%. She had an abdominal and bladder ultrasound that showed no significant abnormality. IMPRESSION: 1. Left flank discomfort of unclear etiology, workup in progress. 2. History of coronary artery disease with no evidence to suggest recurrent angina pectoris. 3. History of ischemic cardiomyopathy. 4. History of hyperlipidemia. RECOMMENDATIONS: From the cardiac standpoint, I see no active ischemic heart disease at this time. I see no indication to proceed with coronary angiography at this point. Her level of activity will be increased and depending on her progress, further recommendation will be made. She will follow as an outpatient with Dr. Porsha Correia.
[2016-10-22 11:55] VITALS: BP 113/67; PULSE 75; TEMP 98.3
--- NOTE | 2016-10-22 14:12 | P.DS ---
Providers Date of admission: 10/21/16 01:15 Expected date of discharge: 10/22/16 Attending physician: Brenden Rodriguez Consults: [facility] Primary care physician: Brenden Rodriguez [facility] Course: Patient is a 41-year-old white male, patient of mine in the outpatient setting, with medical history significant for myocardial infarction, coronary artery disease status post angioplasty of an LAD and circumflex coronary artery within the last few months, presenting to the emergency department with complaints of left costal margin in the left flank pain radiating to her back ongoing for 2-3 days. Patient was previously at [facility] where she had a CT of the abdomen and pelvis with no apparent evidence of kidney stones and patient states she was diagnosed with flank contusion. Patient states that pain was unmanageable at home and she was worried about possible chest pain so she came to the emergency department at [facility]. Chest x- ray with no evidence of acute process. EKG with evidence of normal sinus rhythm nonspecific T-wave abnormality. Troponins negative 3. Urinalysis with evidence of large amount of blood, moderate leukocyte esterase, and greater than 182 WBC. Patient was admitted for observation with cardiology consult. Cardiology did evaluate patient and felt that patient's chest discomfort was atypical. Per cardiology notes, cardiology service would consider invasive angiographically if chest discomfort persist with left flank pain has resolved. Upon examination one day ago, patient states she has needed tremendous amount of pain medication and is currently just settling into where her left flank pain is a 1 out of 10. Patient reports pain is exacerbated with activity. Patient reports nausea without vomiting. Denies chills, fevers, shortness of breath, or chest pain. Denies constipation or diarrhea. Patient states that her fibromyalgia is flaring up again also. Patient was very verbose and went on and on about her pain and other issues. A UTI was suspected. She was started on Rocephin. Ultrasound the kidneys/renal Doppler were ordered but were unable to be completed. No technologist was available to do this procedure. Cardiology cleared her for discharge, as they felt her pain was not heart related. I will plan outpatient renal Doppler for her, started on Depakote to control her symptoms, continue on her pain medications this time and for Percocet and Toradol. She'll follow-up in the office in 2 days. Vital diagnoses: 1. Atypical chest pain, myocardial infarction ruled out. 2. Left flank pain, exact etiology at this time unknown. 3. urinary tract infection 4. Coronary artery disease with recent cardiac catheterization and stent placement. 5. Fibromyalgia. 6. Chronic back pain. 7. Worsening bipolar disorder 8. Nicotine dependence. Patient Condition at Discharge: Fair Plan - Discharge Summary New Discharge Prescriptions: Divalproex [Depakote] 250 mg PO TID #90 tablet. Ketorolac [Toradol] 10 mg PO Q6HR PRN #24 tab PRN Reason: Pain Ondansetron HCl [Zofran] 4 mg PO Q6HR PRN #30 tablet PRN Reason: Nausea Sulfamethox-Tmp 800-160Mg [Bactrim DS 800-160 mg] 1 tab PO Q12HR #28 tab oxyCODONE-APAP 7.5-325MG [Percocet 7.5-325 mg] 1 tab PO Q6HR PRN #30 tab PRN Reason: Pain Discharge Medication List Aspirin 81 mg PO DAILY #30 chew 08/16/16 [Rx] Atorvastatin [Lipitor] 80 mg PO DAILY #30 tab 08/16/16 [Rx] Metoprolol Tartrate [Lopressor] 25 mg PO BID #60 tab 08/16/16 [Rx] Nitroglycerin Sl Tabs [Nitrostat] 0.4 mg SUBLINGUAL Q5M PRN #25 tab 08/16/16 [Rx ] Ticagrelor [Brilinta] 90 mg PO BID #60 tab 08/16/16 [Rx] Albuterol Sulfate [Proair Hfa] 2 puff INHALATION RT-Q6H PRN 10/20/16 [History] Divalproex [Depakote] 250 mg PO TID #90 tablet. 10/22/16 [Rx] Ketorolac [Toradol] 10 mg PO Q6HR PRN #24 tab 10/22/16 [Rx] Ondansetron HCl [Zofran] 4 mg PO Q6HR PRN #30 tablet 10/22/16 [Rx] Sulfamethox-Tmp 800-160Mg [Bactrim DS 800-160 mg] 1 tab PO Q12HR #28 tab [Rx] oxyCODONE-APAP 7.5-325MG [Percocet 7.5-325 mg] 1 tab PO Q6HR PRN #30 tab [Rx] Follow up Appointment(s)/Referral(s): Brenden Rodriguez MD [Primary Care Provider] - 1-2 days Discharge Disposition: HOME SELF-CARE
== END 2016-10-22 14:40 | disposition home or self-care (01) ==
LOC: EC 22:52 → 3OBS 10-21 01:15
PROVIDERS: ADMIT Family Medicine; ATTEND Family Medicine
DX: R07.89 Other chest pain (principal); N39.0 Urinary tract infection, site not specified; I25.10 Atherosclerotic heart disease of native coronary artery without angina pectoris; M79.7 Fibromyalgia; M54.5 Low back pain; G89.29 Other chronic pain; F31.9 Bipolar disorder, unspecified; F17.200 Nicotine dependence, unspecified, uncomplicated; Z79.899 Other long term (current) drug therapy; Z79.82 Long term (current) use of aspirin; Z88.1 Allergy status to other antibiotic agents; E78.5 Hyperlipidemia, unspecified; Z79.02 Long term (current) use of antithrombotics/antiplatelets; I25.2 Old myocardial infarction; M19.90 Unspecified osteoarthritis, unspecified site; Z95.5 Presence of coronary angioplasty implant and graft; F41.9 Anxiety disorder, unspecified; I10 Essential (primary) hypertension; I25.5 Ischemic cardiomyopathy; I25.82 Chronic total occlusion of coronary artery; M51.36 Other intervertebral disc degeneration, lumbar region; M46.96 Unspecified inflammatory spondylopathy, lumbar region; R11.0 Nausea
CPT/HCPCS: 96365 ×2; 96376 ×2; 99291 ×2; 36415; 94640 ×3; 93005; 93306; 85379; 80061; 80053; 80048; 82150; 82550; 82553; 83690; 83735; 84484 ×2; 85025 ×2; 81001; 81025; 87086; 87077; 87186; 71010; 76770; G0378 ×2; J1644 ×2; J2405 ×2; J0696 ×2; J1885 ×2; J2270 ×2; 96366; 96367

== ENCOUNTER → 2016-10-26 | Outpatient (CLI) | payer MEDICARE ==
--- NOTE | 2016-10-27 07:15 | US ---
EXAMINATION TYPE: US renal artery duplex complete DATE OF EXAM: 10/26/2016 9:12 AM COMPARISON: recent US on PACS; CT on PACS CLINICAL HISTORY: R10.9 L flank pain. Patient stated has LUQ pain radiating to left flank; prior bila teral renal stones; smoker; recent NE MEASUREMENTS: RENAL SIZE: Rt Kidney: 11.1 x 5.4 x 4.1cm Lt Kidney: 10.8 x 5.0 x 5.7cm RESISTANCE INDEX Right: 0.7 Left: 0.6 RA/AO RATIO (< 3.5 ) Right: 1.1 Left: 0.5 RA VELOCITY ( < 180 cm/s) Right: 98.3cm/s mid Left: 30.7cm/s prox Aorta size is wnl; at right renal mid pole noted parallel hyperechoic foci with posterior shadowing = 0.3 x 0.4 x 0.2cm could represent renal stones vs. calcification of vessel healy.Color flow is noted to bilateral renal cortex. Both resistive indexes are less than or equal to 0.7. IMPRESSION: NORMAL RENAL ARTERY DOPPLER.
== END | disposition home or self-care (01) ==
LOC: RADUSMAIN 08:00
PROVIDERS: ATTEND Family Medicine
DX: R10.9 Unspecified abdominal pain (principal); Z88.1 Allergy status to other antibiotic agents
CPT/HCPCS: 93975

== ENCOUNTER → 2016-11-01 | Outpatient (CLI) | payer MEDICARE | END | disposition home or self-care (01) | LOC: LABWHC1 11:24 | PROVIDERS: ATTEND Internal Medicine Cardiovascular Disease | DX: I25.10 Atherosclerotic heart disease of native coronary artery without angina pectoris (principal) | CPT/HCPCS: 36415; 83704 ==

== ENCOUNTER → 2016-11-29 | Outpatient (CLI) | payer MEDICARE ==
[2016-11-29 14:13] LABS: CH 31.6; HCT 44.2 % (34.0-46.0); HDW 2.31; HGB 14.3 gm/dL (11.4-16.0); MCH 31.2 pg (25.0-35.0); MCHC 32.4 g/dL (31.0-37.0); MCV 96.4 fL (80.0-100.0); Mean Platelet Volume 7.3; RBC 4.58 m/uL (3.80-5.40); RDW 14.4 % (11.5-15.5); WBC 7.2 k/uL (3.8-10.6)
[2016-11-29 14:20] LABS: Anion Gap 12 mmol/L; Blood Urea Nitrogen 14 mg/dL (7-17); Carbon Dioxide 22 mmol/L (22-30); Chloride 107 mmol/L (98-107); Non-African American GFR(MDRD) >60 (>60 ml/min/1.73 sqM); Potassium 4.1 mmol/L (3.5-5.1); Sodium 141 mmol/L (137-145)
== END | disposition home or self-care (01) ==
LOC: LABPAT 13:28
PROVIDERS: ATTEND Internal Medicine Cardiovascular Disease
DX: Z01.812 Encounter for preprocedural laboratory examination (principal); I25.10 Atherosclerotic heart disease of native coronary artery without angina pectoris
CPT/HCPCS: 80051; 82565; 84520; 85027

== ENCOUNTER 2016-11-30 10:37 | Day surgery (SDC) | payer MEDICARE, OTHER ==
[2016-11-29 08:56] VITALS: BMI 33.5
[2016-11-30] MEDS ORDERED: NITROGLYCERIN SL TABS 0.4 MG TAB SUBLINGUAL PRN ×3 (10:47→15:16)
[2016-11-30] MEDS ORDERED: SODIUM CHLORIDE 0.9% 1,000 ML in EMPTY BAG 1 BAG IV ONE (10:47)
[2016-11-30] MEDS ORDERED: ATORVASTATIN 80 MG TAB PO STA (10:47)
[2016-11-30] MEDS ORDERED: ASPIRIN 325 MG TAB PO STA (10:47)
[2016-11-30] MEDS: ALPRAZolam 0.25 MG TAB PO PRN (12:29)
[2016-11-30] MEDS ORDERED: ONDANSETRON 4 MG TAB PO PRN (12:47)
[2016-11-30] MEDS: fentaNYL (PF) 50 MCG/ML 2 ML AMP IV ONE ×2 (13:35→15:13)
[2016-11-30] MEDS ORDERED: MIDAZOLAM 2 MG/2 ML VIAL IV ONE ×2 (13:37→14:39)
[2016-11-30] MEDS ORDERED: LIDOCAINE 2% INJ 20 MG/ML SQ ONE (13:39)
[2016-11-30] MEDS: NITROGLYCERIN 1000MCG/10ML SYRINGE INTRACORON ONE ×3 (13:45→15:07)
[2016-11-30] MEDS ORDERED: BIVALIRUDIN BOLUS 250 MG/50 ML IV ONE (14:41)
[2016-11-30] MEDS ORDERED: BIVALIRUDIN 250 MG in SODIUM CHLORIDE 0.9% 50 ML IV ONE (14:42)
[2016-11-30] MEDS ORDERED: IOHEXOL 350 MG/ML 125ML BOTTLE INJ ONE (15:13)
[2016-11-30] MEDS ORDERED: ALBUTEROL NEBULIZED 2.5 MG/3 ML INHALATION PRN (15:14)
[2016-11-30] MEDS ORDERED: ATROPINE SULFATE 0.1 MG/ML 10ML SYRINGE IV PRN (15:16)
[2016-11-30] MEDS ORDERED: MAG HYDROX/AL HYDROX/SIMETH 30 ML CUP PO PRN (15:16)
[2016-11-30] MEDS ORDERED: ZOLPIDEM 5 MG TAB PO PRN (15:16)
[2016-11-30] MEDS ORDERED: RX INFO: IV CONTRAST WAS GIVEN 1 EACH MISC MISCELLANE PRN (15:16)
[2016-11-30] MEDS ORDERED: SODIUM CHLORIDE 0.9% 1,000 ML IV SCH (15:30)
[2016-11-30] MEDS: oxyCODONE-APAP 7.5-325MG 1 EACH TAB PO PRN (16:43)
[2016-11-30] MEDS: METOPROLOL TARTRATE 25 MG TAB PO SCH ×2 (19:00→22:20)
[2016-11-30] MEDS: ALPRAZolam 0.5 MG TAB PO PRN (20:12)
[2016-11-30] MEDS: HYDROcodone/APAP 10-325MG 1 EACH TAB PO PRN (20:12)
[2016-11-30 20:45] VITALS: RESP 18
[2016-11-30 20:45] LABS: Glucose,Whole Blood 194 mg/dL (75-99)
[2016-11-30] MEDS ORDERED: ATORVASTATIN 80 MG TAB PO SCH (21:00)
[2016-11-30] MEDS: DIVALPROEX 250 MG TABLET.DR PO SCH (22:20)
[2016-11-30] MEDS: LISINOPRIL 5 MG TAB PO SCH (22:20)
[2016-11-30] MEDS: TICAGRELOR 90 MG TAB PO SCH (22:20)
[2016-11-30] MEDS: ONDANSETRON 4 MG TAB PO PRN (22:57)
--- NOTE | 2016-11-30 22:57 | CC ---
DATE OF SERVICE: Mrs. Denise is a 41-year-old female who is seen who has been having recurrent chest pain following a stent implantation in July and August. In view of that, the patient was recommended to have a repeat cardiac catheterization. The patient's echocardiogram reveals ejection fraction of 25% to 30%. PROCEDURE: The right groin was prepped and draped in the usual manner and the skin was infiltrated with 2% Xylocaine. The right femoral artery was entered using Seldinger technique. A #6 Urdu sheath was placed in. Selective coronary angiography was then performed in multiple projections and the left ventricular pressures were obtained note. The left main coronary artery is normal and patent. LAD is a good caliber blood vessel and proximally has 90% stenosis in the mid LAD . The origin of the diagonal branch has about 70% stenosis. Circumflex coronary artery is a good caliber blood vessel and is diffusely diseased proximally has about 40% stenosis. The stent in the mid circumflex coronary artery is patent and right coronary artery is mildly diffusely diseased without any hemodynamically significant stenosis. HEMODYNAMICS: Left ventricular end-diastolic pressure was 24 mmHg prior to angiography. No gradient was noted across the aortic valve. FINAL IMPRESSION: This patient has a recurrent restenosis in the proximal LAD. The mid LAD has 70% stenosis. Circumflex and right coronary artery has mild diffuse irregularity. RECOMMENDATIONS: The films were reviewed with Dr. Montoya. Patient does carry significantly increased risk of restenosis on repeat stenting. The options of bypass surgery versus repeat stent were discussed with the patient. She would like to try one more time and see if it is successfully. Discussed with Dr. Montoya. We will proceed with a stent to the proximal LAD. If patient again developed restenosis then we would not have any choice but to consider bypass surgery.
[2016-12-01] MEDS: oxyCODONE-APAP 7.5-325MG 1 EACH TAB PO PRN ×3 (00:06→14:10)
--- NOTE | 2016-12-01 04:50 | PTCA ---
DATE OF SERVICE: 11/30/2016 PERFORMING PHYSICIAN: John Montoya MD, supervisor contingents. PROCEDURE PERFORMED: 1. Successful stenting of the mid LAD using 2.5 x 12 mm Promus Premier drug-eluting stent with a good angiographic result. 2. Successful stenting of the proximal LAD using 3.5 x 16 mm Promus Premier drug-eluting stent with a good angiographic result. INDICATION: This is a pleasant 41-year-old female patient who sees Dr. Porsha Correia as an outpatient, who was experiencing chest discomfort. She is known to have coronary artery disease with prior stenting of the LAD as well as the diagonal. She underwent a heart catheterization which showed severe in-stent restenosis. Beside that, she ( ) severe de florentino disease involving the mid LAD. APPROACH: Right common femoral artery. COMPLICATIONS: None. LEVEL OF SEDATION: Moderate with sedation length of 30 minutes. PROCEDURE DESCRIPTION: After diagnostic heart catheterization was performed by Dr. Porsha Correia and after reviewing the angiogram, we decided to intervene on the LAD: Anticoagulation was initiated using Angiomax. Subsequently, I took an XB35 LAD guide and the left main was engaged. A whisper wire was used to wire the LAD. After that, I did cut the mid and proximal LAD using AngioSculpt cutting balloon. It was 2.5 x 12 mm balloon. Then for the lesion in the mid LAD I deployed 2.5 x 12 mm Promus Premier drug-eluting stent, where the stent was positioned under fluoroscopy guidance and deployed under 12 atmospheres for 20 seconds. For the lesion in the proximal LAD, I deployed 3.5 x 16 mm another Promus Premier drug-eluting stent, where the stent was positioned under fluoroscopy guidance and deployed under 12 atmospheres for 20 seconds. The following angiogram showed good angiographic result without perforation and without dissection. The procedure was completed without any complication. POSTPROCEDURE MANAGEMENT: 1. Dual antiplatelet therapy. 2. Risk factor modifications. 3. Follow up with the patient.
[2016-12-01] MEDS: ALPRAZolam 0.5 MG TAB PO PRN (05:38)
[2016-12-01 06:06] LABS: Non-African American GFR(MDRD) >60 (>60 ml/min/1.73 sqM)
[2016-12-01] MEDS: ONDANSETRON 4 MG TAB PO PRN (07:09)
[2016-12-01] MEDS ORDERED: PANTOPRAZOLE 40 MG TABLET PO SCH (07:30)
[2016-12-01] MEDS: METOPROLOL TARTRATE 25 MG TAB PO SCH ×2 (08:08→17:33)
[2016-12-01] MEDS: TICAGRELOR 90 MG TAB PO SCH (08:09)
[2016-12-01] MEDS: LISINOPRIL 5 MG TAB PO SCH (08:10)
[2016-12-01] MEDS: DIVALPROEX 250 MG TABLET.DR PO SCH (08:12)
[2016-12-01 08:15] VITALS: TEMP 96.7
--- NOTE | 2016-12-01 08:48 | P.PN ---
Subjective Principal diagnosis: LAD stent Discharge note This is a pleasant 41-year-old female with known history of coronary artery disease and prior stent placement. Patient also has an echocardiogram in the office recently which revealed an ejection fraction of 25-30%. She was brought to the hospital and underwent a cardiac catheterization yesterday by Dr. VC Correia with subsequent angioplasty and stenting of the LAD by Dr. Mc. Patient was seen and examined this morning, denies any chest pain or difficulty in breathing. EKG shows a normal sinus rhythm with anterior ST-T wave changes. Blood pressure 104/70 with a heart rate in the 70s. Was explained to the patient in detail that she will require a LifeVest prior to being discharged home for the prevention of sudden cardiac . Objective - Vital Signs Vital signs: Vital Signs Temp 96.7 F L 12/01/16 08:00 Pulse 74 12/01/16 08:00 Resp 18 12/01/16 08:00 BP 100/64 12/01/16 08:00 Pulse Ox 98 12/01/16 08:00 Intake & Output 11/30/16 12/01/16 12/01/16 18:59 06:59 18:59 Intake Total 428.1 1200 250 Output Total 200 425 Balance 228.1 775 250 Weight 81.7 kg Intake: IV 428.1 600 Sodium Chloride 0.9% 1, 100 600 000 ml @ 75 mls/hr IV . [id number] [facility] Rx#:[id number] Oral 600 250 Output: Urine 200 425 Other: Voiding Method Toilet # Voids 2 - Exam PHYSICAL EXAMINATION: HEENT: Head is atraumatic, normocephalic. Pupils equal, round. Neck is supple. There is no elevated jugular venous pressure. HEART EXAMINATION: Heart S1, S2 normal. No murmur or gallop heard. CHEST EXAMINATION: Lungs are clear to auscultation and precussion. No chest wall tenderness is noted on palpation or with deep breathing. ABDOMEN: Soft, mild generalized tenderness . Bowel sounds are heard. No organomegaly noted. Right groin soft, no evidence of any hematoma EXTREMITIES: 2+ peripheral pulses with no evidence of peripheral edema and no calf tenderness noted. NEUROLOGIC patient is awake, alert and oriented -3. . - Labs CBC & Chem 7: 12/01/16 05:37 Labs: Abnormal Lab Results - Last 24 Hours (Table) 11/30/16 Range/Units 20:43 POC Glucose (mg/dL) 194 H (75-99) mg/dL Assessment and Plan (1) Presence of stent in LAD coronary artery Status: Acute (2) Nicotine dependence Status: Acute (3) Fibromyalgia, secondary Status: Acute (4) History of hypertension Status: Acute (5) Hyperlipidemia Status: Acute (6) Ischemic cardiomyopathy Status: Acute Plan: Patient may be able to be discharged home today after placement of a LifeVest. She will follow-up with Dr. VC Correia in the office in one week. The patient will be discharged home on aspirin 81 mg daily, Lipitor 80 mg daily, Depakote 250 mg one tablet by mouth twice a day, Imdur 30 mg daily, lisinopril 5 mg by mouth twice a day, add a prolonged 25 mg one tablet by mouth 3 times a day, Brilinta 90 mg one tablet by mouth twice a day, Sublingual nitroglycerin as needed for chest pain. DNP note has been reviewed, I agree with a documented findings and plan of care. Patient was seen and examined.
[2016-12-01] MEDS ORDERED: ASPIRIN 81 MG CHEW PO SCH (09:00)
[2016-12-01] MEDS ORDERED: ISOSORBIDE MONONITRATE ER 30 MG TAB.ER.24H PO SCH (09:00)
[2016-12-01] MEDS: ALPRAZolam 0.25 MG TAB PO PRN (11:12)
[2016-12-01] MEDS: HYDROcodone/APAP 10-325MG 1 EACH TAB PO PRN (11:12)
[2016-12-01 18:47] VITALS: BP 95/56; PULSE 67
== END 2016-12-01 19:43 | disposition home or self-care (01) ==
LOC: CATHCVL 10:37 → 6SEL 15:20 → CATHCVL 12-01 19:43
PROVIDERS: ATTEND Internal Medicine Cardiovascular Disease
DX: I25.119 Atherosclerotic heart disease of native coronary artery with unspecified angina pectoris (principal); T82.855A Stenosis of coronary artery stent, initial encounter; I10 Essential (primary) hypertension; E78.2 Mixed hyperlipidemia; I25.2 Old myocardial infarction; M79.7 Fibromyalgia; I25.5 Ischemic cardiomyopathy; F17.210 Nicotine dependence, cigarettes, uncomplicated; Z79.82 Long term (current) use of aspirin; Z79.891 Long term (current) use of opiate analgesic; Z79.899 Other long term (current) drug therapy; Z88.1 Allergy status to other antibiotic agents
CPT/HCPCS: 93458; 82565; 99152; 99153; C9600; C1769 ×2; C1725 ×2; C1887; C1894; C1874; J2001; J2250; J3010; J0583; Q9967

== ENCOUNTER → 2016-12-27 | Outpatient (CLI) | payer MEDICARE, OTHER ==
--- NOTE | 2016-12-27 16:31 | XR ---
EXAMINATION TYPE: XR thoracic spine 2V DATE OF EXAM: 12/27/2016 CLINICAL HISTORY: Back pain. TECHNIQUE: Frontal, lateral, and swimmer's view of thoracic spine are obtained. COMPARISON: Prior two-view chest x-ray and CTA chest August 13, 2016. FINDINGS: Thoracic spine show satisfactory alignment without evidence of acute fracture or dislocatio n. Mild height loss superior T8 endplate is redemonstrated. Vertebral body heights and disc space he ights are otherwise preserved. Miffed and spurring is seen. Visualized ribs are unremarkable. There is coronary stent in the left circumflex distribution identified. IMPRESSION: Mild height loss T8 vertebra redemonstrated
--- NOTE | 2016-12-27 16:54 | MR ---
EXAMINATION TYPE: MR lumbar spine wo/w con DATE OF EXAM: 12/27/2016 COMPARISON: NONE HISTORY: 41-year-old female with low back pain and left lower extremity radiculopathy x 10 years, no trauma Technique: Multiplanar, multisequence images of the lumbar spine were obtained before and after admin istration of 15 mL intravenous MultiHance gadolinium contrast. FINDINGS: Vertebral body heights are preserved and alignment is maintained. Conus medullaris is normal. No prevertebral or paravertebral soft tissue abnormality. There is fatty Modic type II endplate change towards the left at both L4-L5 and L5-S1. No suspicious bone marrow replacement. The Modic endplate changes are associated with degenerative disc disease characterized by desiccated, narrowed, and bulging discs at these levels. There is a left intraforaminal annular fissure at L5-S1 . Disc desiccation at L3-L4 also noted with an enhancing posterior annular fissure and bulging disc. Mild facet arthropathy lower lumbar spine especially towards the left. From T12 through L3 levels, no spinal canal or neuroforaminal stenosis. At L3-L4, broad-based posterior disc bulge with annular fissure. No significant spinal canal or at ne ural foraminal stenosis. At L4-L5, there is diffuse disc bulge. Disc material minimally encroaches onto the inferior right yazan roforamen. No significant spinal canal or foraminal stenosis. Additional facet degenerative change. L5-S1, there is bulging disc with a left intraforaminal enhancing annular fissure. This material appe ars to abut the exiting left L5 nerve root though there is no significant neuroforaminal stenosis. Re star to axial image 2. No spinal canal stenosis. No suspicious enhancement within the spinal canal. IMPRESSION: 1. Degenerative disc disease from L3 through S1 levels, greatest at L5-S1 and then at L4-L5 with asso ciated fatty Modic type II endplate change towards the left. Additional mild facet arthropathy lower lumbar spine. 2. Annular fissures at L3-L4 and L5-S1. The annular fissure at L5-S1 is in a left intraforaminal loca tion and disc material here may abut the exiting left L5 nerve root. 3. No petra foraminal or canal compromise.
== END | disposition home or self-care (01) ==
LOC: RADMRIMAIN 15:15
PROVIDERS: ATTEND Family Medicine
DX: M51.37 Other intervertebral disc degeneration, lumbosacral region (principal); M46.86 Other specified inflammatory spondylopathies, lumbar region; M51.84 Other intervertebral disc disorders, thoracic region
CPT/HCPCS: 72070; 72158; A9577

== ENCOUNTER → 2017-01-10 | Outpatient (CLI) | payer MEDICARE, OTHER ==
--- NOTE | 2017-01-10 11:17 | MR ---
EXAMINATION TYPE: MR thoracic spine wo con DATE OF EXAM: 01/10/2017 COMPARISON: NONE HISTORY: tsp pain Standard multiplanar, multisequence MRI departmental protocol Multiplanar, multisequence images of the thoracic spine were acquired. Diffusion weighted imaging was performed. FINDINGS: Alignment is anatomic. Mild superior endplate loss of height at T8 appears chronic. Exam limited by motion artifact. At T3-T4 there is minimal central disc bulging. No spinal cord contact or foraminal encroachment. No disc herniation or canal stenosis. No foraminal encroachment at any of the remaining levels. No abnormal signal in the visualized spinal cord. There is loss of disc signal and space at T7-T8 compatible with degenerative change. Slight curvature of the spine noted. IMPRESSION: 1. Minimal central disc bulging T3-T4 with no canal stenosis or foraminal encroachment. 2. Mild degenerative disc disease T7-T8 with a chronic superior endplate compression deformity or fra cture. No canal stenosis or disc herniation at any level.
== END | disposition home or self-care (01) ==
LOC: RADMRIMAIN 10:25
PROVIDERS: ATTEND Family Medicine
DX: M51.24 Other intervertebral disc displacement, thoracic region (principal); M51.34 Other intervertebral disc degeneration, thoracic region
CPT/HCPCS: 72146

== ENCOUNTER → 2017-02-03 | Outpatient (CLI) | payer MEDICARE, OTHER ==
[2017-02-03 14:06] LABS: CH 30.5; CHCM 33.3; HCT 37.6 % (34.0-46.0); HDW 2.41; MCHC 34.7 g/dL (31.0-37.0); MCV 92.3 fL (80.0-100.0); Mean Platelet Volume 7.2; RBC 4.07 m/uL (3.80-5.40); RDW 14.5 % (11.5-15.5); WBC 7.5 k/uL (3.8-10.6)
[2017-02-03 14:24] LABS: Anion Gap 9 mmol/L; Blood Urea Nitrogen 13 mg/dL (7-17); Carbon Dioxide 22 mmol/L (22-30); Chloride 110 mmol/L (98-107); Non-African American GFR(MDRD) >60 (>60 ml/min/1.73 sqM); Potassium 4.7 mmol/L (3.5-5.1); Sodium 141 mmol/L (137-145)
== END ==
LOC: LABPAT 13:14
PROVIDERS: ATTEND Internal Medicine Cardiovascular Disease
DX: Z01.812 Encounter for preprocedural laboratory examination (principal); I25.10 Atherosclerotic heart disease of native coronary artery without angina pectoris
CPT/HCPCS: 80051; 82565; 84520; 85027

== ENCOUNTER 2017-02-06 11:45 | Day surgery (SDC) | payer MEDICARE, OTHER ==
[~2017-02-06 11:45] MED LIST changes: +ALPRAZolam 0.5 MG TAB PO PRN; -ASPIRIN 325 MG TAB PO ONE; +ASPIRIN 325 MG TAB PO STA; +ATORVASTATIN 80 MG TAB PO STA; +NITROGLYCERIN SL TABS 0.4 MG TAB SUBLINGUAL PRN
[2017-02-06] MEDS ORDERED: LIDOCAINE 1% INJ 10MG/ML (20 ML MDV) ONE (12:01)
[2017-02-06] MEDS ORDERED: fentaNYL (PF) 50 MCG/ML 2 ML AMP ONE (12:33)
[2017-02-06] MEDS ORDERED: MIDAZOLAM 2 MG/2 ML VIAL ONE (12:33)
[2017-02-06] MEDS ORDERED: diphenhydrAMINE 50 MG/ML 1 ML VIAL ONE (12:33)
[2017-02-06] MEDS ORDERED: LIDOCAINE 2% INJ 20 MG/ML (20 ML MDV) ONE ×2 (12:33→12:59)
[2017-02-06] MEDS ORDERED: MIDAZOLAM 2 MG/2 ML VIAL IV ONE (12:47)
[2017-02-06] MEDS: fentaNYL (PF) 50 MCG/ML 2 ML AMP IV ONE ×2 (12:49→12:57)
[2017-02-06] MEDS ORDERED: diphenhydrAMINE 50 MG/ML 1 ML VIAL IVP ONE (12:51)
[2017-02-06] MEDS ORDERED: LIDOCAINE 2% INJ 20 MG/ML SQ ONE ×2 (12:53→13:00)
[2017-02-06] MEDS ORDERED: IOHEXOL 350 MG/ML 125ML BOTTLE INJ ONE (13:21)
[2017-02-06] MEDS ORDERED: HYDROmorphone 2 MG/ML 1 ML SYRINGE ONE (13:28)
[2017-02-06] MEDS ORDERED: RX INFO: IV CONTRAST WAS GIVEN 1 EACH MISC MISCELLANE PRN (13:29)
[2017-02-06] MEDS ORDERED: HYDROmorphone 2 MG/ML 1 ML SYRINGE IVP ONE (13:30)
[2017-02-06] MEDS ORDERED: ALBUTEROL NEBULIZED 2.5 MG/3 ML INHALATION PRN (13:39)
[2017-02-06] MEDS ORDERED: ONDANSETRON 4 MG TAB PO PRN (13:39)
[2017-02-06] MEDS ORDERED: NITROGLYCERIN SL TABS 0.4 MG TAB SUBLINGUAL PRN (13:39)
[2017-02-06] MEDS: SODIUM CHLORIDE 0.9% 1,000 ML IV SCH (15:18)
[2017-02-06] MEDS: METOPROLOL TARTRATE 12.5 MG TAB PO SCH ×2 (15:18→22:09)
[2017-02-06] MEDS: HYDROmorphone 1 MG/ML 1 ML SYRINGE IVP PRN ×2 (16:39→20:06)
[2017-02-06] MEDS ORDERED: NICOTINE 14MG/24HR PATCH TRANSDERM SCH (16:45)
[2017-02-06] MEDS: oxyCODONE-APAP 7.5-325MG 1 EACH TAB PO PRN (17:21)
[2017-02-06] MEDS ORDERED: ATORVASTATIN 80 MG TAB PO SCH (21:00)
[2017-02-06] MEDS: LISINOPRIL 5 MG TAB PO SCH (22:09)
[2017-02-06] MEDS: TICAGRELOR 90 MG TAB PO SCH (22:09)
[2017-02-07] MEDS: HYDROmorphone 1 MG/ML 1 ML SYRINGE IVP PRN ×2 (00:15→08:05)
--- NOTE | 2017-02-07 05:40 | CC ---
Mrs. Denise is a 41-year-old female who was seen in the office because of the recurrent chest pain. This patient has a history of multiple ( ). Patient's chest pains are very difficulty to evaluate because of the continued recurrent chest pain. The patient was advised repeat cardiac catheterization to rule out any evidence of restenosis done in the stent prior about 2 months ago. PROCEDURE: The left groin was prepped and draped in the usual manner and the skin was infiltrated with 2% Xylocaine. The left femoral artery was entered using Seldinger technique and #6 Beninese sheath was placed in. Selective coronary angiography was then performed in multiple projections and the left ventricular pressures were obtained. The patient tolerated the procedure well. HEMODYNAMICS: Left ventricular end-diastolic pressure is 24 mmHg prior to angiography. No gradient is noted across the aortic valve. SELECTIVE CORONARY ANGIOGRAPHY: Left main coronary artery is normal and patent. LAD is a good caliber blood vessel. There is a stent present in the proximal and mid LAD. There is minimal stenosis noted in the proximal LAD about 10% to 20%. The mid LAD after the origin of the diagonal branch the stent is patent. The diagonal branch has a 30% stenosis. Circumflex coronary artery is a good caliber blood vessel and proximal circumflex artery has a 40% stenosis, which is unchanged. The stent in the circumflex coronary artery is patent. The right coronary artery is a good caliber blood vessel and is mildly diffusely diseased without any hemodynamically significant stenosis. FINAL IMPRESSION: This study shows mild diffuse disease in circumflex and right coronary artery without any hemodynamically significant stenosis. There is mild restenosis in the proximal left anterior descending of about 10% to 20% . RECOMMENDATIONS: The films were reviewed with Dr. Montoya. At present, we will continue the patient on medical therapy. FRANCISCO JAVIER
[2017-02-07] MEDS ORDERED: PANTOPRAZOLE 40 MG TABLET PO SCH (07:30)
[2017-02-07 07:43] VITALS: BP 84/60; PULSE 71; RESP 17; TEMP 98
[2017-02-07] MEDS: SODIUM CHLORIDE 0.9% 1,000 ML IV SCH (07:51)
[2017-02-07] MEDS: LISINOPRIL 5 MG TAB PO SCH (08:05)
[2017-02-07] MEDS: TICAGRELOR 90 MG TAB PO SCH (08:05)
[2017-02-07] MEDS: METOPROLOL TARTRATE 12.5 MG TAB PO SCH (08:05)
[2017-02-07] MEDS ORDERED: ASPIRIN 81 MG CHEW PO SCH (09:00)
[2017-02-07] MEDS ORDERED: DIVALPROEX ER 500 MG TAB.ER.24H PO SCH (09:00)
[2017-02-07] MEDS ORDERED: ISOSORBIDE MONONITRATE ER 30 MG TAB.ER.24H PO SCH (09:00)
[2017-02-07] MEDS: oxyCODONE-APAP 7.5-325MG 1 EACH TAB PO PRN (12:45)
--- NOTE | 2017-02-07 13:25 | DS ---
This patient was admitted for cardiac catheterization yesterday. Patient was found to have no significant progression in the coronary artery disease and the medical treatment was recommended. She is feeling better. Her left groin has some slight ecchymosis. There is no evidence of any hematoma. Patient is being ambulated. She is advised to continue the current medications, nitroglycerine p.r.n. We will check her echocardiogram in 3 weeks and if the left ventricular dysfunction persists, it will be considered for AICD placement. MTDD
== END 2017-02-07 14:05 | disposition home or self-care (01) ==
LOC: CATHCVL 11:45 → 3OBS 13:20 → CATHCVL 02-07 14:05
PROVIDERS: ATTEND Internal Medicine Cardiovascular Disease
DX: I25.119 Atherosclerotic heart disease of native coronary artery with unspecified angina pectoris (principal); T82.855A Stenosis of coronary artery stent, initial encounter; I10 Essential (primary) hypertension; E78.2 Mixed hyperlipidemia; I25.2 Old myocardial infarction; F17.210 Nicotine dependence, cigarettes, uncomplicated; Z79.82 Long term (current) use of aspirin; Z79.899 Other long term (current) drug therapy; Z88.1 Allergy status to other antibiotic agents; Z88.8 Allergy status to other drugs, medicaments and biological substances
CPT/HCPCS: 94640; 93458; C1894; C1769; S4990; J2001; J2250; J1170 ×3; J1200; J3010; Q9967

== ENCOUNTER 2017-02-09 02:54 | Emergency (ER) | payer MEDICARE, OTHER ==
[2017-02-09 03:06] VITALS: RESP 18; TEMP 98.2
[2017-02-09] MEDS ORDERED: HYDROmorphone 1 MG/ML 1 ML SYRINGE IM STA ×2 (03:14→04:24)
--- NOTE | 2017-02-09 03:18 | ED ---
General Adult HPI - General Chief complaint: Recheck/Abnormal Lab/Rx Stated complaint: follow up-heart cath monday Time Seen by Provider: 02/09/17 03:00 Source: patient, family, RN notes reviewed Mode of arrival: ambulatory Limitations: no limitations - History of Present Illness Initial comments: This is a 41-year-old female presents to the emergency room with a past medical history for multiple MIs. Patient comes in today because she had a cardiac cath on Monday no stents were placed at that time. Patient states her left groin is becoming more and more tender and she believes the area just above the groin is become a little harder than it was in the past. Patient also notes that there is some ecchymosis going down her thigh and it is causing some pain in her thigh. Patient denies any fever or chills patient denies any drainage from the area. Patient denies any numbness or weakness of the leg. Patient denies any other injury. Patient denies any chest pain or difficulty breathing - Related Data Home Medications Medication Instructions Recorded Confirmed Albuterol Sulfate [Proair Hfa] 2 puff INHALATION RT-Q6H PRN 10/20/16 02/09/17 Isosorbide Mononitrate ER [Imdur] 30 mg PO DAILY 11/29/16 02/09/17 Lisinopril [Prinivil] 5 mg PO BID 11/29/16 02/09/17 Omeprazole [PriLOSEC] 40 mg PO DAILY 11/29/16 02/09/17 Atorvastatin [Lipitor] 80 mg PO HS 11/30/16 02/09/17 Ondansetron [Zofran] 4 mg PO Q8HR PRN 11/30/16 02/09/17 Divalproex ER [Depakote ER] 1,000 mg PO DAILY 02/06/17 02/09/17 Previous Rx's Medication Instructions Recorded Aspirin 81 mg PO DAILY #30 chew 08/16/16 Ticagrelor [Brilinta] 90 mg PO BID #60 tab 08/16/16 oxyCODONE-APAP 7.5-325MG [Percocet 1 tab PO Q6HR PRN #30 tab 10/22/16 7.5-325 mg] Metoprolol Tartrate [Lopressor] 12.5 mg PO TID #90 dose 12/01/16 Nitroglycerin Sl Tabs [Nitrostat] 0.4 mg SUBLINGUAL Q5M PRN #0 tab 12/01/16 Allergies Allergy/AdvReac Type Severity Reaction Status Date / Time moxifloxacin HCl Allergy Rash/Hives Verified 02/09/17 03:06 [From Avelox] Review of Systems ROS Statement: Those systems with pertinent positive or pertinent negative responses have been documented in the HPI. ROS Other: All systems not noted in ROS Statement are negative. Past Medical History Past Medical History: Coronary Artery Disease (CAD), Chest Pain / Angina, Fibromyalgia, GERD/Reflux, Hyperlipidemia, Myocardial Infarction ([place]), Osteoarthritis (OA), Pneumonia Additional Past Medical History / Comment(s): [place] X4, lumbar DDD, lumbar facet arthropathy, low back pain, occ migraines, pt states that she is on heart and B/ P medication to make her heart stronger, not for HTN, recent UTI in AUG 2016, Last Myocardial Infarction Date:: 08/13/2016 History of Any Multi-Drug Resistant Organisms: None Reported Past Surgical History: Heart Catheterization, Heart Catheterization With Stent Additional Past Surgical History / Comment(s): 03/03/15 PTCA with stent to RCA. Other SX HX: 2003 LAD stent, 2008 RCA with 3 stents, 2008 PDA stent, 2009 CX stent, 2010 proximal diag stent, 2012 OM stent, 2014 stent 2 to RCA ,several PAIN CLINIC PROCEDURES Past Anesthesia/Blood Transfusion Reactions: No Reported Reaction Date of Last Stent Placement:: 08-13-16 Past Psychological History: Anxiety, Bipolar, Depression Smoking Status: Current every day smoker Past Alcohol Use History: None Reported Past Drug Use History: None Reported - Past Family History Mother Family Medical History: Coronary Artery Disease (CAD), Fibromyalgia, Hyperlipidemia Additional Family Medical History / Comment(s): heart disease Father Family Medical History: CVA/TIA, Fibromyalgia, Hyperlipidemia, Hypertension, Musculoskeletal Disorder Additional Family Medical History / Comment(s): MS Sister(s) History Unknown: Yes Family Medical History: Hyperlipidemia General Exam - General Exam Comments Initial Comments: GENERAL: Patient is well-developed and well-nourished. Patient is nontoxic and well- hydrated and is in mild distress. ENT: Neck is soft and supple. No significant lymphadenopathy is noted. Oropharynx is clear. Moist mucous membranes. Neck has full range of motion without eliciting any pain. EYES: The sclera were anicteric and conjunctiva were pink and moist. Extraocular movements were intact and pupils were equal round and reactive to light. Eyelids were unremarkable. SKIN: Skin is clear with no lesions or rashes and otherwise unremarkable. NEUROLOGIC: Patient is alert and oriented x3. Cranial nerves II through XII are grossly intact. Motor and sensory are also intact. Normal speech, volume and content. MUSCULOSKELETAL: Normal extremities with adequate strength and full range of motion. The left groin and some ecchymotic area in the mons pubis PSYCHIATRIC: Normal psychiatric evaluation. Limitations: no limitations Course Vital Signs 02/09/17 03:02 Temperature 98.2 F Pulse Rate 73 Respiratory 18 Rate Blood Pressure 110/66 O2 Sat by Pulse 100 Oximetry Medical Decision Making - Medical Decision Making Ultrasound showed no pseudoaneurysm Disposition Clinical Impression: Hematoma following percutaneous transluminal coronary angioplasty Disposition: HOME SELF-CARE Instructions: Hematoma (ED) Additional Instructions: Patient should follow-up with Dr. Rodriguez tomorrow morning Referrals: Brenden Rodriguez MD [Primary Care Provider] - 1-2 days Time of Disposition: 04:12
[2017-02-09 04:40] VITALS: BP 114/93; PULSE 77
--- NOTE | 2017-02-09 05:07 | US ---
EXAM: US Duplex Left Lower Extremity Arteries (Limited) CLINICAL HISTORY: Cardiac catheterization via left groin access on 02/06/2017. Pain and bruising. Assess for pseudoaneurysm. TECHNIQUE: Grayscale and color Doppler duplex imaging performed of the left groin to assess for pseudoaneurysm. COMPARISON: No relevant prior studies available. FINDINGS: No evidence of pseudoaneurysm. No fluid collection visualized in region of interest. Imaged portion of the left common femoral artery is patent with normal arterial waveforms. No evidence of arteriovenous shunting. IMPRESSION: No evidence of pseudoaneurysm or fluid collection in the left groin.
== END 2017-02-09 04:39 | disposition home or self-care (01) ==
LOC: EC 02:54
DX: I97.638 Postprocedural hematoma of a circulatory system organ or structure following other circulatory system procedure (principal); F31.9 Bipolar disorder, unspecified; I25.10 Atherosclerotic heart disease of native coronary artery without angina pectoris; I25.2 Old myocardial infarction; I10 Essential (primary) hypertension; E78.5 Hyperlipidemia, unspecified; F17.200 Nicotine dependence, unspecified, uncomplicated; Z95.5 Presence of coronary angioplasty implant and graft; Z79.899 Other long term (current) drug therapy; Z88.1 Allergy status to other antibiotic agents; Y83.8 Other surgical procedures as the cause of abnormal reaction of the patient, or of later complication, without mention of misadventure at the time of the procedure
CPT/HCPCS: 99283; 96372 ×2; 93975; 93926; J1170

== ENCOUNTER 2017-02-12 23:57 | Emergency (ER) | payer MEDICARE, OTHER ==
[2017-02-13 00:45] LABS: Basophils # (A) 0.1 k/uL (0-0.2); Basophils % (A) 1 %; CH 31.9; CHCM 34.1; Eosinophils # (A) 0.3 k/uL (0-0.7); Eosinophils % (A) 4 %; HCT 35.8 % (34.0-46.0); HDW 2.44; HGB 12.2 gm/dL (11.4-16.0); Luc # (Auto) 0.11; Luc % (Auto) 2; Lymphocytes # (A) 2.9 k/uL (1.0-4.8); Lymphocytes % (A) 39 %; MCV 94.1 fL (80.0-100.0); Monocytes # (A) 0.5 k/uL (0-1.0); Monocytes % (A) 6 %; Neutrophils # (A) 3.6 k/uL (1.3-7.7); Neutrophils % (A) 49 %; RBC 3.81 m/uL (3.80-5.40); RDW 15.2 % (11.5-15.5); WBC 7.4 k/uL (3.8-10.6); WBC (Perox) 6.99
[2017-02-13 00:55] LABS: ALT 23 U/L (9-52); AST 12 U/L (14-36); Alkaline Phosphatase 73 U/L (38-126); Anion Gap 10 mmol/L; Blood Urea Nitrogen 13 mg/dL (7-17); Calcium 9.1 mg/dL (8.4-10.2); Carbon Dioxide 23 mmol/L (22-30); Chloride 108 mmol/L (98-107); Glucose 81 mg/dL (74-99); Non-African American GFR(MDRD) >60 (>60 ml/min/1.73 sqM); Potassium 3.8 mmol/L (3.5-5.1); Sodium 141 mmol/L (137-145); Total Bilirubin 0.3 mg/dL (0.2-1.3)
[2017-02-13 01:00] LABS: Partial Thromboplastin Time 25.8 sec (22.0-30.0); Prothrombin Time 10.3 sec (9.0-12.0)
--- NOTE | 2017-02-13 01:01 | ED ---
General Adult HPI - General Chief complaint: Recheck/Abnormal Lab/Rx Stated complaint: Groin Pain-Revisit Time Seen by Provider: 02/13/17 00:22 Source: patient, RN notes reviewed Mode of arrival: wheelchair Limitations: no limitations - History of Present Illness Initial comments: 41 yo female presents to the ER with cc of left groin pain. Patient had a heart catheterization one week ago. Patient states she's continue to have left groin pain following this. Patient states that she saw her applied researcher on Monday he gave her some Percocets to help with the pain however she just continues to have this pain. Patient states movement or touch makes it worse she may still sometimes it will go away. Patient states he believes that they hit a nerve during the calf. Patient denies any weakness. Patient states it radiates into the left leg and in to the center of the groin. Patient denies any bleeding from the site any loss of bladder function. Patient denies any recent fever, chills, shortness of breath, chest pain, back pain, abdominal pain , nausea vomiting, numbness or tingling, dysuria or hematuria, constipation or diarrhea, headaches or visual changes, or any other current symptoms. - Related Data Home Medications Medication Instructions Recorded Confirmed Albuterol Sulfate [Proair Hfa] 2 puff INHALATION RT-Q6H PRN 10/20/16 02/09/17 Isosorbide Mononitrate ER [Imdur] 30 mg PO DAILY 11/29/16 02/09/17 Lisinopril [Prinivil] 5 mg PO BID 11/29/16 02/09/17 Omeprazole [PriLOSEC] 40 mg PO DAILY 11/29/16 02/09/17 Atorvastatin [Lipitor] 80 mg PO HS 11/30/16 02/09/17 Ondansetron [Zofran] 4 mg PO Q8HR PRN 11/30/16 02/09/17 Divalproex ER [Depakote ER] 1,000 mg PO DAILY 02/06/17 02/09/17 Previous Rx's Medication Instructions Recorded Aspirin 81 mg PO DAILY #30 chew 08/16/16 Ticagrelor [Brilinta] 90 mg PO BID #60 tab 08/16/16 oxyCODONE-APAP 7.5-325MG [Percocet 1 tab PO Q6HR PRN #30 tab 10/22/16 7.5-325 mg] Metoprolol Tartrate [Lopressor] 12.5 mg PO TID #90 dose 12/01/16 Nitroglycerin Sl Tabs [Nitrostat] 0.4 mg SUBLINGUAL Q5M PRN #0 tab 12/01/16 Allergies Allergy/AdvReac Type Severity Reaction Status Date / Time moxifloxacin HCl Allergy Rash/Hives Verified 02/13/17 00:06 [From Avelox] Review of Systems ROS Statement: Those systems with pertinent positive or pertinent negative responses have been documented in the HPI. ROS Other: All systems not noted in ROS Statement are negative. Past Medical History Past Medical History: Coronary Artery Disease (CAD), Chest Pain / Angina, Fibromyalgia, GERD/Reflux, Hyperlipidemia, Myocardial Infarction ([place]), Osteoarthritis (OA), Pneumonia Additional Past Medical History / Comment(s): [place] X4, lumbar DDD, lumbar facet arthropathy, low back pain, occ migraines, pt states that she is on heart and B/ P medication to make her heart stronger, not for HTN, recent UTI in AUG 2016, Last Myocardial Infarction Date:: 08/13/2016 History of Any Multi-Drug Resistant Organisms: None Reported Past Surgical History: Heart Catheterization, Heart Catheterization With Stent Additional Past Surgical History / Comment(s): 03/03/15 PTCA with stent to RCA. Other SX HX: 2003 LAD stent, 2008 RCA with 3 stents, 2008 PDA stent, 2009 CX stent, 2010 proximal diag stent, 2012 OM stent, 2014 stent 2 to RCA ,several PAIN CLINIC PROCEDURES Past Anesthesia/Blood Transfusion Reactions: No Reported Reaction Date of Last Stent Placement:: 08-13-16 Past Psychological History: Anxiety, Bipolar, Depression Smoking Status: Current every day smoker Past Alcohol Use History: None Reported Past Drug Use History: None Reported - Past Family History Mother Family Medical History: Coronary Artery Disease (CAD), Fibromyalgia, Hyperlipidemia Additional Family Medical History / Comment(s): heart disease Father Family Medical History: CVA/TIA, Fibromyalgia, Hyperlipidemia, Hypertension, Musculoskeletal Disorder Additional Family Medical History / Comment(s): MS Sister(s) History Unknown: Yes Family Medical History: Hyperlipidemia General Exam - General Exam Comments Initial Comments: General: The patient is awake and alert, in no distress, and does not appear acutely ill. Eye: Pupils are equal. Ears, nose, mouth and throat: There are moist mucous membranes. Neck: The neck is supple, there is no tendernes. Cardiovascular: There is a regular rate and rhythm. No murmur, rub or gallop is appreciated. Respiratory: Lungs are clear to auscultation, respirations are non-labored, breath sounds are equal. No wheezes, stridor, rales, or rhonchi. Gastrointestinal: Soft, non-distended, non-tender abdomen without masses or organomegaly noted. There is no rebound or guarding present. No CVA tenderness. Bowel sounds are unremarkable. Back: There is no tenderness to palpation in the midline. There is no obvious deformity. No rashes noted. Musculoskeletal: Normal ROM, tenderness to palpation in the left groin with associated ecchymosis to the left upper thigh., There is no pedal edema. There is no calf tenderness or swelling. Sensation intact. Pulses equal bilaterally 2+ . Neurological: CN II-XII intact, There are no obvious motor or sensory deficits. Coordination appears grossly intact. Speech is normal. Skin: Skin is warm and dry and no rashes or lesions are noted. Psychiatric: Cooperative, appropriate mood & affect, normal judgment. Limitations: no limitations Course Vital Signs 02/13/17 00:03 Temperature 98.9 F Pulse Rate 93 Respiratory 24 Rate Blood Pressure 98/61 O2 Sat by Pulse 99 Oximetry Medical Decision Making - Medical Decision Making 41-year-old female presents for left groin following a heart cath that occurred 1 week ago. At this time to the left lower extremity. Patient does appear to have ecchymosis running the area ultrasound does show some reactive lymph nodes that there is no pseudoaneurysm. Patient's pain comes and goes almost in a stabbing-like fashion. We did give her a muscle relaxer to see if it would help with her pain. This time there is concern that it could be a muscle like component to her symptoms. At this time patient was given medications have improved her symptoms. We discussed continued follow-up with her applied researcher we discussed return parameters and all the questions. She stated that she understood and she is in agreement with plan. She will be discharged. - Lab Data Result diagrams: 02/13/17 00:35 02/13/17 00:35 Lab Results 02/13/17 02/13/1702/13/17 Range/Units 00:35 00:35 00:35 WBC 7.4 (3.8-10.6) k/uL RBC 3.81 (3.80-5.40) m/uL Hgb 12.2 (11.4-16.0) gm/dL Hct 35.8 (34.0-46.0) % MCV 94.1 (80.0-100.0) fL MCH 32.0 (25.0-35.0) pg MCHC 34.0 (31.0-37.0) g/dL RDW 15.2 (11.5-15.5) % Plt Count 260 (150-450) k/uL Neutrophils % 49 % Lymphocytes % 39 % Monocytes % 6 % Eosinophils % 4 % Basophils % 1 % Neutrophils # 3.6 (1.3-7.7) k/uL Lymphocytes # 2.9 (1.0-4.8) k/uL Monocytes # 0.5 (0-1.0) k/uL Eosinophils # 0.3 (0-0.7) k/uL Basophils # 0.1 (0-0.2) k/uL PT 10.3 (9.0-12.0) sec INR 1.0 (<1.2) APTT 25.8 (22.0-30.0) sec Sodium 141 (137-145) mmol/L Potassium 3.8 (3.5-5.1) mmol/L Chloride 108 H (98-107) mmol/L Carbon Dioxide 23 (22-30) mmol/L Anion Gap 10 mmol/L BUN 13 (7-17) mg/dL Creatinine 0.70 (0.52-1.04) mg/dL Est GFR (MDRD) Af Amer >60 (>60 ml/min/1.73 sqM) Est GFR (MDRD) Non-Af >60 (>60 ml/min/1.73 sqM) Glucose 81 (74-99) mg/dL Calcium 9.1 (8.4-10.2) mg/dL Total Bilirubin 0.3 (0.2-1.3) mg/dL AST 12 L (14-36) U/L ALT 23 (9-52) U/L Alkaline Phosphatase 73 (38-126) U/L Total Protein 6.0 L (6.3-8.2) g/dL Albumin 3.4 L (3.5-5.0) g/dL - Radiology Data Radiology results: report reviewed, image reviewed Disposition Clinical Impression: Left groin pain Disposition: HOME SELF-CARE Condition: Stable Instructions: Groin Pain (ED) Additional Instructions: Please use medication as discussed. Please follow up with family doctor if symptoms have not improved over the next two days. Please return to the emergency room if your symptoms increase or worsen or for any other concerns. Referrals: Brenden Rodriguez MD [Primary Care Provider] - 1-2 days
--- NOTE | 2017-02-13 01:48 | US ---
EXAM: US Left Arterial Lower Extremity CLINICAL HISTORY: Reason: Pain, rule out pseudoaneurysm. TECHNIQUE: Real-time Doppler/duplex ultrasound of the left arterial lower extremity with image documentation. COMPARISON: No relevant prior studies available. FINDINGS: No pseudoaneurysm. No arteriovenous shunting. No abnormal fluid collections. Superior to the site of concern are multiple hypoechoic vascular areas seen with the largest measuring up to 2.4 cm, probably lymph nodes. IMPRESSION: No pseudoaneurysm. Probably reactive lymph nodes involving the left groin.
[2017-02-13] MEDS ORDERED: HYDROmorphone 1 MG/ML 1 ML SYRINGE IVP STA (02:06)
[2017-02-13] MEDS ORDERED: ORPHENADRINE 30 MG/ML 2 ML VIAL IVP STA (02:06)
[2017-02-13 03:37] VITALS: BP 109/67; PULSE 82; RESP 18; TEMP 98.5
== END 2017-02-13 02:30 | disposition home or self-care (01) ==
LOC: EC 23:57
DX: R10.32 Left lower quadrant pain (principal); R58 Hemorrhage, not elsewhere classified; M79.605 Pain in left leg; E78.5 Hyperlipidemia, unspecified; I25.10 Atherosclerotic heart disease of native coronary artery without angina pectoris; G40.909 Epilepsy, unspecified, not intractable, without status epilepticus; K21.9 Gastro-esophageal reflux disease without esophagitis; F31.9 Bipolar disorder, unspecified; I25.2 Old myocardial infarction; F17.200 Nicotine dependence, unspecified, uncomplicated; Z79.899 Other long term (current) drug therapy; Z88.1 Allergy status to other antibiotic agents; Z86.79 Personal history of other diseases of the circulatory system; Z95.5 Presence of coronary angioplasty implant and graft
CPT/HCPCS: 36415; 80053; 85025; 85610; 85730; 93975; 93926; 99284; 96374; 96375; J2360; J1170

== ENCOUNTER → 2017-03-21 | Outpatient (CLI) | payer MEDICARE, OTHER ==
--- NOTE | 2017-03-21 13:48 | BD ---
EXAMINATION TYPE: MG DEXA axial skeleton. DATE OF EXAM: 03/21/2017 COMPARISON: NONE CLINICAL HISTORY: Postmenopausal female. Height: 5 FT 2IN Weight: 187 FRAX RISK QUESTIONS: Alcohol (3 or more units per day): NO Family History (Parent hip fracture): NO Glucocorticoids (More than 3mos): NO (Ex: prednisone, prednisolone, methylprednisolone, dexamethasone, and hydrocortisone). History of Fracture in Adulthood: YES Secondary Osteoporosis: 1. Type 1 Diabetes: NO 2. Hyperthyroidism: NO 3. Menopause before 45: NO 4. Malnutrition: NO 5. Chronic liver disease: NO Rheumatoid Arthritis: NO Current Tobacco Use: YES RISK FACTORS HISTORY OF: Active: YES Postmenopausal woman: LMP 1 WEEK AGO If Premenopausal, do you have irregular periods: MEDICATIONS: Additional Medications: ASPIRIN, LISINOPPRIL, BRILINTA, METROPROLOL, LIPITOR,PERCOCET, NEURONTIN, DEP ACOTE, PRILOSEC, INHALER , ZOFRAN, NITRO, ISOBIDE NITRATE, Additional History: EXAM MEASUREMENTS: Bone mineral densitometry was performed using the [employer] System. Bone mineral density as measured about the Lumbar spine is: ----- L1-L4(G/cm2): 0.912 T Score Values are as follows: ----- L2: -2.1 ----- L3: -2.7 ----- L4: -2.0 ----- L1-L4: -2.2 BASELINE Bone mineral density about the R hip (g/cm2): 0.765 Bone mineral density about the L hip (g/cm2): 0.821 T Score values are as follows: -----R Neck: -2.0 -----L Neck: -1.6 -----R Total: -0.7 -----L Total: -0.8 BASELINE IMPRESSION: OSTEOPOROSIS. NOTE: T-SCORE=SD OF THE YOUNG ADULT MEAN.
== END | disposition home or self-care (01) ==
LOC: RADBDWWP 12:44
PROVIDERS: ATTEND Family Medicine
DX: M81.0 Age-related osteoporosis without current pathological fracture (principal)
CPT/HCPCS: 77080

== ENCOUNTER → 2018-05-15 | Outpatient (CLI) | payer MEDICARE, OTHER ==
--- NOTE | 2018-05-15 10:15 | CT ---
EXAMINATION TYPE: CT cervical spine wo con DATE OF EXAM: 05/15/2018 COMPARISON: 06/17/2013 HISTORY: 42-year-old female Neck pain TECHNIQUE: Contiguous axial scanning of the cervical spine without IV contrast. Coronal and sagittal reconstructions performed. CT DLP: 596.48 mGycm Automated exposure control for dose reduction was used. FINDINGS: Apparent mild sellar enlargement could reflect underlying empty sella. No craniocervical junction abnormality, predental space widening or prevertebral soft tissue swelling . Alignment is maintained. Assessment of the spinal canal from C6 and below is limited due to artifact from patient's shoulders. No large focal disc herniation seen at levels above or canal compromise evident. No significant neuroforaminal stenosis appreciated. Left-sided venous lead is noted. IMPRESSION: NO MALALIGNMENT OR SIGNIFICANT DEGENERATIVE CHANGE. ASSESSMENT OF THE SPINAL CANAL FROM C6 AND BELOW IS LIMITED DUE TO ARTIFACT FROM THE PATIENT'S SHOULDERS. NO EVIDENT CANAL COMPROMISE BY CT OR SIGNIFI CANT NEURAL FORAMINAL STENOSIS SEEN.
--- NOTE | 2018-05-15 12:59 | CT ---
EXAMINATION TYPE: CT thor lumbar spine wo con DATE OF EXAM: 05/15/2018 COMPARISON: None HISTORY: 42-year-old female chronic back pain TECHNIQUE: Contiguous axial scanning of the thoracic and lumbar spine without IV contrast. Coronal an d sagittal reconstructions performed. CT DLP: 1654.54 mGycm Automated exposure control for dose reduction was used. FINDINGS: Generator device is present on the left with right atrial and right ventricular leads. Ectatic ascending aorta at 3.9 cm. Tiny hernia. Nonobstructive 5 mm calcification right kidney. Other reagan, no prevertebral or paravertebral soft tissue abnormality seen. There is background of mild cent rilobular emphysema. Thoracic spine: There is mild superior endplate deformity of T8 without retropulsion into the spinal canal. The injur y appears chronic given lack of any paravertebral hematoma or soft tissue thickening. Allowing for CT technique, no large focal disc herniation is identified. There is scattered facet arthropathy. On the left, this contributes to mild to moderate narrowing of the T8-T9 near foramen. On the right, no significant neural foraminal stenosis is seen. Alignment is maintained. No additional acute fracture seen. Lumbar spine: Vertebral body heights are preserved and alignment is maintained. Degenerative disc disease L4-L5 and L5-S1 with moderate disc interspace narrowing, bulging discs, and vacuum phenomenon. Additional facet arthropathy lower lumbar spine. No significant spinal canal stenosis. At L4-L5, changes result in mild inferior foraminal narrowing. At L5-S1, changes result in [id number] left and mild right neuroforaminal stenosis. IMPRESSION: 1. MILD SUPERIOR ENDPLATE COMPRESSION DEFORMITY OF T8 APPEARS CHRONIC GIVEN THE LACK OF ANY SURROUNDI NG SOFT TISSUE SWELLING. CORRELATE FOR ANY FOCAL PAIN AT THIS LEVEL. 2. ALONG WITH FACET ARTHROPATHY, THERE IS A MILD TO MODERATE LEFT-SIDED NEUROFORAMINAL STENOSIS AT T8 -T9. 3. MODERATE DEGENERATIVE DISC DISEASE L4-L5 AND L5-S1 ALONG WITH FACET ARTHROPATHY. 4. NO SIGNIFICANT SPINAL CANAL STENOSIS IS IDENTIFIED BY CT. 5. MILD TO MODERATE LEFT AND MILD RIGHT NEUROFORAMINAL STENOSIS AT L5-S1.
== END | disposition home or self-care (01) ==
LOC: RADCTMAIN 08:09
PROVIDERS: ATTEND Psychiatry & Neurology Neurology
DX: M99.72 Connective tissue and disc stenosis of intervertebral foramina of thoracic region (principal); M51.36 Other intervertebral disc degeneration, lumbar region; M51.37 Other intervertebral disc degeneration, lumbosacral region; M46.96 Unspecified inflammatory spondylopathy, lumbar region; M46.97 Unspecified inflammatory spondylopathy, lumbosacral region; G95.20 Unspecified cord compression; M54.2 Cervicalgia; Z88.1 Allergy status to other antibiotic agents
CPT/HCPCS: 72125; 72128; 72131

== ENCOUNTER → 2018-10-05 | Outpatient (CLI) | payer MEDICARE ==
[2018-10-05 16:50] LABS: Appearance,Urine Cloudy (Clear); Bacteria,Urine Rare /hpf; Bilirubin,Urine Negative (Negative); Blood,Urine Large (Negative); Calcium Oxalate Crystals,Urine Many /hpf; Color,Urine Red; Glucose,Urine (UA) Negative (Negative); Hyaline Casts,Urine 18 /lpf (0-2); Ketones,Urine 1+ (Negative); Leukocyte Esterase,Urine Small (Negative); Mucus,Urine Many /hpf; Nitrite,Urine Negative (Negative); Protein,Urine 2+ (Negative); RBC,Urine >182 /hpf (0-5); Squamous Epithelial Cell,Urine 17 /hpf (0-4)
[2018-10-05 23:54] LABS: Anion Gap 10.5 mmol/L (4.00-12.00); Calcium 9.7 mg/dL (8.7-10.3); Carbon Dioxide 25.5 mmol/L (21.6-31.8); Potassium 3.6 mmol/L (3.5-5.5)
== END | disposition home or self-care (01) ==
LOC: LABWHC1 15:07
PROVIDERS: ATTEND Family Medicine
DX: E78.5 Hyperlipidemia, unspecified (principal); I10 Essential (primary) hypertension; N20.0 Calculus of kidney; I25.9 Chronic ischemic heart disease, unspecified; R30.0 Dysuria; Z79.899 Other long term (current) drug therapy
CPT/HCPCS: 36415; 80048; 81001; 87086

== ENCOUNTER → 2018-10-29 | Outpatient (CLI) | payer MEDICARE ==
--- NOTE | 2018-10-29 14:25 | MM ---
Reason for exam: screening (asymptomatic). Baseline mammogram. History: Took hormonal contraceptives for 13 years beginning at age 15. Physical Findings: Nurse did not find any significant physical abnormalities on exam. MG Screening Mammo w CAD Bilateral CC, MLO, and XCCL view(s) were taken. There are scattered fibroglandular densities. Asymmetric breast tissue in the right upper outer quadrant. These results were verbally communicated with the patient and result sheet given to the patient on 10/29/18. ASSESSMENT: Probably benign, BI-RAD 3 RECOMMENDATION: Follow-up diagnostic mammogram of the right breast in 6 months.
== END | disposition home or self-care (01) ==
LOC: RADMAMWWP 13:30
PROVIDERS: ATTEND Family Medicine
DX: Z12.31 Encounter for screening mammogram for malignant neoplasm of breast (principal)
CPT/HCPCS: 77067

== ENCOUNTER → 2019-04-04 | Outpatient (CLI) | payer MEDICARE ==
--- NOTE | 2019-04-04 12:42 | XR ---
EXAMINATION TYPE: XR chest 2V DATE OF EXAM: 04/04/2019 COMPARISON: 06/30/2017 HISTORY: Cough TECHNIQUE: Frontal and lateral views of the chest are obtained. FINDINGS: There is no focal air space opacity. Pacer device is in place. Mild peribronchial cuffing may reflect bronchitis. No evidence for pneumothorax. No pleural effusion. The cardiac silhouette size is within normal limits. The osseous structures are grossly intact. IMPRESSION: 1. Mild peribronchial cuffing may reflect bronchitis.
== END | disposition home or self-care (01) ==
LOC: RADXRMAIN 12:19
PROVIDERS: ATTEND Family Medicine
DX: J98.09 Other diseases of bronchus, not elsewhere classified (principal); J44.1 Chronic obstructive pulmonary disease with (acute) exacerbation
CPT/HCPCS: 71046

== ENCOUNTER → 2019-04-05 | Outpatient (CLI) | payer MEDICARE ==
--- NOTE | 2019-04-05 12:16 | CT ---
EXAMINATION TYPE: CT angio chest DATE OF EXAM: 04/05/2019 COMPARISON: CTA chest August 13, 2016 HISTORY: Cough, COPD, left sided rib pain x [address] DLP: 593 mGycm. Automated Exposure Control for Dose Reduction was Utilized. CONTRAST: CTA scan of the thorax is performed with IV Contrast, patient injected with 60 mL of Isovue 370, pulm onary embolism protocol. MIP Images are created on CT scanner and reviewed. FINDINGS: LUNGS: Mild to moderate underlying emphysematous change is felt present. Areas of multifocal groundgl ass opacity are present bilaterally most prominent in the upper lungs. No pleural effusion or pneumot horax is seen. No suspicious nodules or masses. MEDIASTINUM: There is satisfactory enhancement of the pulmonary artery and its branches, there is no CT evidence for pulmonary embolism. There are persistent prominent bilateral hilar lymph nodes axial image 50 without significant change from prior. No new mediastinal adenopathy. No cardiomegaly or p ericardial effusion is seen. New single lead ICD terminates in right ventricle. Severe three-vessel c oronary artery calcification and/or stents which is noted marker for underlying coronary artery disea se. Correlate clinically.Reflux of contrast into IVC and hepatic veins. CT finding may be a product o f some underlying right heart failure. The ascending aorta measures up to 3.7 cm in diameter on curre nt study. OTHER: No additional significant abnormality. IMPRESSION: No CT evidence for acute pulmonary embolism. Bilateral upper lung mild alveolar edema and /or infiltrates.
== END | disposition home or self-care (01) ==
LOC: RADCTMAIN 11:26
PROVIDERS: ATTEND Family Medicine
DX: J44.1 Chronic obstructive pulmonary disease with (acute) exacerbation (principal); Z88.1 Allergy status to other antibiotic agents
CPT/HCPCS: 71275; Q9967

== ENCOUNTER → 2019-05-13 | Outpatient (CLI) | payer MEDICARE ==
--- NOTE | 2019-05-13 13:13 | XR ---
EXAMINATION TYPE: XR chest 2V DATE OF EXAM: 05/13/2019 COMPARISON: 04/04/2019 INDICATION: J 44.1 TECHNIQUE: Frontal and lateral views of the chest are obtained. FINDINGS: The heart size is normal. The pulmonary vasculature is normal. The lungs are clear. Asymmetric overlies left chest. IMPRESSION: 1. No acute pulmonary process.
== END | disposition home or self-care (01) ==
LOC: RADXRMAIN 12:35
PROVIDERS: ATTEND Family Medicine
DX: J44.1 Chronic obstructive pulmonary disease with (acute) exacerbation (principal)
CPT/HCPCS: 71046

== ENCOUNTER → 2019-05-24 | Outpatient (CLI) | payer MEDICARE ==
--- NOTE | 2019-05-24 16:50 | XR ---
EXAMINATION TYPE: XR chest 2V DATE OF EXAM: 05/24/2019 COMPARISON: 05/13/2019 INDICATION: Check 44.1 follow-up pneumonia TECHNIQUE: Frontal and lateral views of the chest are obtained. FINDINGS: The heart size is normal. The pulmonary vasculature is normal. The lungs are clear. No suspicious residual infiltrates are evident. Pacemaker overlies the left loli st. Coronary artery stents appear to be faintly visualized. IMPRESSION: 1. No acute pulmonary process.
== END | disposition home or self-care (01) ==
LOC: RADXRMAIN 14:57
PROVIDERS: ATTEND Family Medicine
DX: J44.1 Chronic obstructive pulmonary disease with (acute) exacerbation (principal)
CPT/HCPCS: 71046

== ENCOUNTER 2019-07-17 00:47 | Emergency (ER) | payer MEDICARE ==
[2019-07-17 00:51] VITALS: TEMP 98.1
[2019-07-17 01:39] LABS: Basophils # (A) 0.2 k/uL (0-0.2); Basophils % (A) 2 %; Eosinophils # (A) 0.2 k/uL (0-0.7); Eosinophils % (A) 2 %; HCT 46.6 % (34.0-46.0); HGB 15.2 gm/dL (11.4-16.0); Lymphocytes # (A) 3.1 k/uL (1.0-4.8); Lymphocytes % (A) 30 %; MCH 29.8 pg (25.0-35.0); MCHC 32.6 g/dL (31.0-37.0); MCV 91.5 fL (80.0-100.0); Mean Platelet Volume 8.3; Monocytes # (A) 0.6 k/uL (0-1.0); Monocytes % (A) 6 %; Neutrophils # (A) 6.1 k/uL (1.3-7.7); Neutrophils % (A) 59 %; Platelet Count 263 k/uL (150-450); RBC 5.09 m/uL (3.80-5.40); RDW 14.5 % (11.5-15.5); WBC 10.3 k/uL (3.8-10.6)
--- NOTE | 2019-07-17 01:49 | XR ---
EXAMINATION TYPE: XR chest 2V DATE OF EXAM: 07/17/2019 COMPARISON: 05/24/2019 HISTORY: Chest pain TECHNIQUE: 2 views FINDINGS: Chest pain IMPRESSION: Heart is normal. Lungs are clear. Diaphragm is normal. There is a left axillary pacemaker . Bony thorax is intact. Pulmonary vascularity is normal. IMPRESSION: No cardiopulmonary disease. There is 30% wedging of T8 vertebra unchanged.
[2019-07-17 02:00] LABS: ALT 30 U/L (4-34); AST 35 U/L (14-36); African American GFR (CKD) >90 (>60 ml/min/1.73 sqM); Albumin 4.4 g/dL (3.5-5.0); Alkaline Phosphatase 104 U/L (38-126); Anion Gap 9 mmol/L; Blood Urea Nitrogen 9 mg/dL (7-17); Calcium 9.6 mg/dL (8.4-10.2); Carbon Dioxide 22 mmol/L (22-30); Chloride 107 mmol/L (98-107); Glucose 104 mg/dL (74-99); Magnesium 1.8 mg/dL (1.6-2.3); Non-African American GFR(CKD) >90 (>60 ml/min/1.73 sqM); Potassium 3.9 mmol/L (3.5-5.1); Sodium 138 mmol/L (137-145); Total Bilirubin 0.6 mg/dL (0.2-1.3); Total Protein 7.5 g/dL (6.3-8.2)
[2019-07-17 02:05] VITALS: RESP 18
[2019-07-17 02:19] LABS: INR 0.9 (<1.2); Partial Thromboplastin Time 27.1 sec (22.0-30.0); Prothrombin Time 9.9 sec (9.0-12.0)
--- NOTE | 2019-07-17 02:19 | ED ---
Chest Pain HPI <Parish Gan - Last Filed: 07/17/19 07:59> - General Source: patient Mode of arrival: wheelchair Limitations: no limitations <Sussy Hamm - Last Filed: 07/17/19 22:15> - General Chief Complaint: Chest Pain Stated Complaint: Chest Pain Time Seen by Provider: 07/17/19 00:55 - History of Present Illness Initial Comments: Sahara is a 43-year-old female presents the emergency department today for evaluation of chest pain. Patient reports that chest pain began without provoca tion approximately 3-4 hours prior to arrival. Patient presents initially chest pain was only about 4 in intensity and she attempted to go to bed and sleep it off however pain increased to 6 out of intensity so she decided to come the ER for evaluation. She cannot find her home nitro so she came to the ER without taking any. Patient denies any exertional symptoms. She denies any shortness of breath diaphoresis or lightheadedness. Pain is constant with no exacerbating or relieving factors. She does have a history of coronary artery disease and had a stent placement she was only 28 years old. At that time her coronary artery disease was attributed to genetics, I started, obesity, hyperlipidemia, smoking and control use. (Sussy Hamm) - Related Data Home Medications Medication Instructions Recorded Confirmed Albuterol Sulfate [Proair Hfa] 2 puff INHALATION RT-Q6H PRN 10/20/16 06/29/17 Lisinopril [Prinivil] 5 mg PO BID 11/29/16 06/27/17 Omeprazole [PriLOSEC] 40 mg PO DAILY 11/29/16 06/27/17 Atorvastatin [Lipitor] 80 mg PO HS 11/30/16 06/27/17 Divalproex ER [Depakote ER] 1,000 mg PO DAILY 02/06/17 06/27/17 Alendronate Sodium 70 mg PO WEEKLY 06/29/17 06/29/17 Previous Rx's Medication Instructions Recorded Aspirin 81 mg PO DAILY #30 chew 08/16/16 Ticagrelor [Brilinta] 90 mg PO BID #60 tab 08/16/16 oxyCODONE-APAP 7.5-325MG [Percocet 1 tab PO Q6HR PRN #30 tab 10/22/16 7.5-325 mg] Metoprolol Tartrate [Lopressor] 12.5 mg PO TID #90 dose 12/01/16 Nitroglycerin Sl Tabs [Nitrostat] 0.4 mg SUBLINGUAL Q5M PRN #0 tab 12/01/16 Allergies Allergy/AdvReac Type Severity Reaction Status Date / Time moxifloxacin HCl Allergy Rash/Hives Verified 07/17/19 00:51 [From Avelox] Review of Systems ROS Other: All systems not noted in ROS Statement are negative. <Parish Gan D - Last Filed: 07/17/19 07:59> ROS Other: All systems not noted in ROS Statement are negative. <Sussy Hamm - Last Filed: 07/17/19 22:15> ROS Statement: Those systems with pertinent positive or pertinent negative responses have been documented in the HPI. EKG Findings - EKG Comments: EKG Findings:: EKG was obtained due to complaint of chest pain, EKG was obtained at 1:37 AM, rate is 78 rhythm is sinus there is a leftward axis normal intervals, ME 150, QRS 122, QTc is 483 there is no acute ST elevations or depressions no evidence of acute ischemia or infarction. <Sussy Hamm - Last Filed: 07/17/19 22:15> Past Medical History Past Medical History: Coronary Artery Disease (CAD), Chest Pain / Angina, Fibromyalgia, GERD/Reflux, Hyperlipidemia, Myocardial Infarction (MO), Oste oarthritis (OA) Additional Past Medical History / Comment(s): [place] X4, lumbar DDD, lumbar facet arthropathy,occ migraines, pt states that she is on heart and B/P medication to make her heart stronger, not for HTN, Hx of UTI & Pneumonia; see Dr Borja's H&P Last Myocardial Infarction Date:: 08/13/2016 History of Any Multi-Drug Resistant Organisms: None Reported Past Surgical History: Heart Catheterization, Heart Catheterization With Stent Additional Past Surgical History / Comment(s): 03/03/15 PTCA with stent to RCA. Other SX HX: 2003 LAD stent, 2008 RCA with 3 stents, 2008 PDA stent, 2009 CX stent, 2010 proximal diag stent, 2012 OM stent, 2014 stent 2 to RCA ,several PAIN CLINIC PROCEDURES Past Anesthesia/Blood Transfusion Reactions: No Reported Reaction Date of Last Stent Placement:: 08-13-16 Past Psychological History: Anxiety, Bipolar, Depression Smoking Status: Current every day smoker Past Alcohol Use History: None Reported, Occasional Past Drug Use History: None Reported - Past Family History Mother Family Medical History: Coronary Artery Disease (CAD), Fibromyalgia, Hyperlipidemia Additional Family Medical History / Comment(s): heart disease Father Family Medical History: CVA/TIA, Fibromyalgia, Hyperlipidemia, Hypertension, Musculoskeletal Disorder Additional Family Medical History / Comment(s): MS Sister(s) History Unknown: Yes Family Medical History: Hyperlipidemia <Sussy Hamm - Last Filed: 07/17/19 22:15> General Exam Limitations: no limitations <Sussy Hamm - Last Filed: 07/17/19 22:15> - General Exam Comments Initial Comments: Physical Exam GENERAL: Patient is well-developed and well-nourished. Patient is nontoxic and well- hydrated and is in no distress. HENT: Normocephalic, Atraumatic. EYES: PERRL, EOMI PULMONARY: Unlabored respirations. No audible rales rhonchi or wheezing was noted. CARDIOVASCULAR: There is a regular rate and rhythm without any murmurs gallops or rubs. Chest pain reproducible with palpation ABDOMEN: Soft and nontender with normal bowel sounds. SKIN: Skin is clear with no lesions or rashes and otherwise unremarkable. : Deferred NEUROLOGIC: Patient is alert and oriented x3. Moving all extremities spontaneously MUSCULOSKELETAL: Normal extremities with adequate strength and full range of motion. No lower extremity swelling or edema. No calf tenderness. PSYCHIATRIC: Normal psychiatric evaluation. (Sussy Hamm) Course Vital Signs 07/17/19 07/17/19 07/17/19 00:50 02:01 03:15 Temperature 98.1 F Pulse Rate 103 H 86 90 Respiratory 22 18 18 Rate Blood Pressure 143/93 120/85 106/71 O2 Sat by Pulse 99 99 97 Oximetry 07/17/19 07/17/19 05:41 07:40 Temperature Pulse Rate 82 68 Respiratory 18 Rate Blood Pressure 131/84 O2 Sat by Pulse 97 Oximetry Chest Pain MDM <Parish Gan D - Last Filed: 07/17/19 07:59> <Sussy Hamm - Last Filed: 07/17/19 22:15> - [facility] Patient care was sent out to me by previous shift physician Dr. Hamm. Patient is a 43-year-old female with extensive cardiac history since age 28. Patient had symptoms presenting to the emergency department concerning for possible cardiac etiology of chest pain. Prior to sign out patient had 1 negative troponin, negative EKG. Plan at sign out was to follow-up with second troponin. Second troponin is negative. She is well-appearing at bedside. Discussed with patient that she should follow-up with primary care physician or electronic calibration technician for outpatient workup as soon as possible. Return parameters discussed. She is especially warned to come back to the emergency department if she experiences substernal chest pressure radiating to the shoulders or jaw associated with diaphoresis. Patient is sent and agreeable with with disposition. Patient will be discharged. (Parish Gan) Patient was seen and evaluated history is obtained from patient except the 43-year-old female with known coronary artery disease presenting with 4 hours of chest pain that is constant, reproducible with palpation of the chest, patient reports that she's had cardiac pain that is reproducible with chest palpation in the past. EKG is nonischemic. Labs are unremarkable. Patient care was discussed with her primary care physician who knows the patient quite well, recommends a repeat troponin and as long as it remains negative discharge home. Patient's agreeable with this plan. Repeat troponin was drawn at 5 hours. Patient care was signed out to daytime physician Dr. Gan for follow-up on troponin. (Sussy Hamm) Disposition Is patient prescribed a controlled substance at d/c from ED?: No Time of Disposition: 08:00 <Parish Gan - Last Filed: 07/17/19 07:59> Is patient prescribed a controlled substance at d/c from ED?: No <Sussy Hamm - Last Filed: 07/17/19 22:15> Clinical Impression: Chest pain Disposition: HOME SELF-CARE Condition: Stable Instructions (If sedation given, give patient instructions): Chest Pain (ED) Referrals: Brenden Rodriguez MD [Primary Care Provider] - 1-2 days
[2019-07-17] MEDS ORDERED: MORPHINE SULFATE 4 MG/ML SYRINGE IVP STA (03:07)
[2019-07-17 05:42] VITALS: BP 131/84
[2019-07-17 07:41] VITALS: PULSE 68
== END 2019-07-17 07:10 | disposition home or self-care (01) ==
LOC: EC 00:47
DX: R07.9 Chest pain, unspecified (principal); I25.119 Atherosclerotic heart disease of native coronary artery with unspecified angina pectoris; K21.9 Gastro-esophageal reflux disease without esophagitis; E78.5 Hyperlipidemia, unspecified; I25.2 Old myocardial infarction; F31.9 Bipolar disorder, unspecified; F17.200 Nicotine dependence, unspecified, uncomplicated; Z79.899 Other long term (current) drug therapy; Z88.1 Allergy status to other antibiotic agents; Z95.5 Presence of coronary angioplasty implant and graft; Z95.0 Presence of cardiac pacemaker
CPT/HCPCS: 36415; 93005; 83880; 80053; 83690; 83735; 84484; 85025; 85610; 85730; 71046; 99285; 96374; J2270

== ENCOUNTER 2019-09-21 01:18 | Emergency (ER) | payer MEDICARE ==
[2019-09-21] MEDS ORDERED: ALBUTEROL NEB (CONC) 2.5 MG/0.5 ML INHALATION STA (01:41)
[2019-09-21] MEDS ORDERED: IPRATROPIUM-ALBUTEROL 3 ML NEB INHALATION STA (01:41)
[2019-09-21] MEDS ORDERED: methylPREDNISolone SOD SUCCI 125 MG/2 ML VIAL IV STA (01:41)
[2019-09-21] MEDS ORDERED: KETOROLAC 30 MG/ML 1 ML VIAL IVP STA (01:41)
--- NOTE | 2019-09-21 01:50 | ED ---
General Adult HPI - General Chief complaint: Upper Respiratory Infection Stated complaint: SOB/COPD Time Seen by Provider: 09/21/19 01:28 Source: patient Mode of arrival: ambulatory Limitations: no limitations - History of Present Illness Initial comments: 43-year-old female patient with past medical history significant for coronary artery disease, heart failure, COPD, emphysema presents to the emergency department today for evaluation of shortness of breath, cough, and headache. Patient states she's been sick over the last month with upper respiratory infection. Patient states her cough is worsening. Patient states that she was unable to walk to the house without stopping to take breaks due to her breathing so she presented here for further evaluation. Patient denies coughing up any sputum. Patient states she has been doing her nebulizer treatments twice daily and using her inhalers as directed. Denies any fever or chills. Patient is reporting chest tightness. Patient is also reporting a severe headache. States that she has a mild headache at all times for the last 2-3 days however when coughing the headache increases significantly. Denies any blurred or double vision. Denies any dizziness. Denies any numbness, tingling, weakness to her extremities. Patient does smoke cigarettes. Patient states she is also doing a lot of stress lately due to her daughter attempting suicide and being in a day treatment night watch program. States she is unable to follow-up with her primary care physician for her symptoms. Patient denies any recent rash, abdominal pain, nausea, vomiting, diarrhea, constipation, back pain, hematuria, dysuria, urinary urgency, urinary frequency, headache, visual changes, or any other complaints. - Related Data Home Medications Medication Instructions Recorded Confirmed Albuterol Sulfate [Proair Hfa] 2 puff INHALATION RT-Q6H PRN 10/20/16 06/29/17 Lisinopril [Prinivil] 5 mg PO BID 11/29/16 06/27/17 Omeprazole [PriLOSEC] 40 mg PO DAILY 11/29/16 06/27/17 Atorvastatin [Lipitor] 80 mg PO HS 11/30/16 06/27/17 Divalproex ER [Depakote ER] 1,000 mg PO DAILY 02/06/17 06/27/17 Alendronate Sodium 70 mg PO WEEKLY 06/29/17 06/29/17 Previous Rx's Medication Instructions Recorded Aspirin 81 mg PO DAILY #30 chew 08/16/16 Ticagrelor [Brilinta] 90 mg PO BID #60 tab 08/16/16 oxyCODONE-APAP 7.5-325MG [Percocet 1 tab PO Q6HR PRN #30 tab 10/22/16 7.5-325 mg] Metoprolol Tartrate [Lopressor] 12.5 mg PO TID #90 dose 12/01/16 Nitroglycerin Sl Tabs [Nitrostat] 0.4 mg SUBLINGUAL Q5M PRN #0 tab 12/01/16 Azithromycin 250 mg PO DAILY 4 Days #4 tab 09/21/19 Ipratropium-Albuterol Nebulize 3 ml INHALATION Q4H PRN #30 neb 09/21/19 [Duoneb 0.5 mg-3 mg/3 ml Soln] predniSONE 50 mg PO DAILY #5 tablet 09/21/19 Allergies Allergy/AdvReac Type Severity Reaction Status Date / Time moxifloxacin HCl Allergy Rash/Hives Verified 09/21/19 01:26 [From Avelox] Review of Systems ROS Statement: Those systems with pertinent positive or pertinent negative responses have been documented in the HPI. ROS Other: All systems not noted in ROS Statement are negative. Past Medical History Past Medical History: Coronary Artery Disease (CAD), Chest Pain / Angina, Fibromyalgia, GERD/Reflux, Hyperlipidemia, Myocardial Infarction (ME), Osteoarthritis (OA) Additional Past Medical History / Comment(s): [place] X4, lumbar DDD, lumbar facet arthropathy,occ migraines, pt states that she is on heart and B/P medication to make her heart stronger, not for HTN, Hx of UTI & Pneumonia; see Dr Borja's H&P Last Myocardial Infarction Date:: 08/13/2016 History of Any Multi-Drug Resistant Organisms: None Reported Past Surgical History: Heart Catheterization, Heart Catheterization With Stent Additional Past Surgical History / Comment(s): 03/03/15 PTCA with stent to RCA. Other SX HX: 2003 LAD stent, 2008 RCA with 3 stents, 2008 PDA stent, 2009 CX stent, 2010 proximal diag stent, 2012 OM stent, 2014 stent 2 to RCA ,several PAIN CLINIC PROCEDURES Past Anesthesia/Blood Transfusion Reactions: No Reported Reaction Date of Last Stent Placement:: 08-13-16 Past Psychological History: Anxiety, Bipolar, Depression Smoking Status: Current every day smoker Past Alcohol Use History: Occasional Past Drug Use History: Marijuana - Past Family History Mother Family Medical History: Coronary Artery Disease (CAD), Fibromyalgia, Hyperlipidemia Additional Family Medical History / Comment(s): heart disease Father Family Medical History: CVA/TIA, Fibromyalgia, Hyperlipidemia, Hypertension, Musculoskeletal Disorder Additional Family Medical History / Comment(s): MS Sister(s) History Unknown: Yes Family Medical History: Hyperlipidemia General Exam Limitations: no limitations General appearance: alert, in no apparent distress, other (This is a well- developed, well-nourished adult female patient in no acute distress. Vital signs upon presentation are temperature 98.1F, pulse 93, respirations 22, blood pressure 128/87, pulse ox 95% on room air.) ENT exam: Present: normal exam, normal oropharynx, mucous membranes moist Respiratory exam: Present: wheezes (Coarse inspiratory and expiratory wheezing noted throughout the posterior lung llamas). Absent: normal lung sounds bilaterally, respiratory distress, rales, rhonchi, stridor Cardiovascular Exam: Present: regular rate, normal rhythm, normal heart sounds. Absent: systolic murmur, diastolic murmur, rubs, gallop, clicks GI/Abdominal exam: Present: soft, normal bowel sounds. Absent: distended, tenderness, guarding, rebound, rigid Neurological exam: Present: alert, oriented X3, CN II-XII intact Psychiatric exam: Present: normal affect, normal mood Skin exam: Present: warm, dry, intact, normal color. Absent: rash Course Vital Signs 09/21/19 09/21/19 09/21/19 01:23 01:26 02:01 Temperature 98.1 F Pulse Rate 93 74 Respiratory 22 28 H Rate Blood Pressure 128/87 O2 Sat by Pulse 95 Oximetry 09/21/19 09/21/19 02:13 02:48 Temperature 98.6 F Pulse Rate 77 85 Respiratory 20 Rate Blood Pressure 102/66 O2 Sat by Pulse 97 Oximetry EKG Findings - EKG Comments: EKG Findings:: EKG obtained at 50 shows normal sinus rhythm with a ventricular rate of 76, NJ interval 180, QRS duration 112, QTC 432, QTc 486. No evidence of ST elevation or depression. Medical Decision Making - Medical Decision Making 43-year-old female patient presented to the emergency department today for evaluation of cough, shortness of breath, and congestion. Physical examination revealed coarse inspiratory and expiratory wheezing in the posterior lung llamas. Oxygen saturation was running 95% on room air. Labs reviewed and revealed normal white blood cell count. Chest x-ray showed no acute cardiopulmonary process. Given history and physical exam patient is most likely experiencing COPD exacerbation. She did receive double albuterol breathing treatment, IV steroids here in the emergency department. Upon reevaluation she does report improvement of symptoms. She'll be discharged with prescription for azithromycin, prednisone, and DuoNeb treatments. She is instructed to increase her breathing treatments to every 4 hours. She is instructed to follow-up with Dr. Rodriguez on Monday for further evaluation. Return parameters were discussed in detail. She verbalizes understanding and agrees with this plan. - Lab Data Result diagrams: 09/21/19 01:54 09/21/19 01:54 Lab Results 09/21/19 09/21/19 09/21/19 Range/Units 01:54 01:54 01:54 WBC 7.7 (3.8-10.6) k/uL RBC 5.08 (3.80-5.40) m/uL Hgb 15.3 (11.4-16.0) gm/dL Hct 46.7 H (34.0-46.0) % MCV 91.9 (80.0-100.0) fL MCH 30.1 (25.0-35.0) pg MCHC 32.8 (31.0-37.0) g/dL RDW 14.3 (11.5-15.5) % Plt Count 372 (150-450) k/uL Neutrophils % 51 % Lymphocytes % 37 % Monocytes % 7 % Eosinophils % 2 % Basophils % 1 % Neutrophils # 3.9 (1.3-7.7) k/uL Lymphocytes # 2.9 (1.0-4.8) k/uL Monocytes # 0.5 (0-1.0) k/uL Eosinophils # 0.2 (0-0.7) k/uL Basophils # 0.1 (0-0.2) k/uL Sodium 137 (137-145) mmol/L Potassium 5.1 (3.5-5.1) mmol/L Chloride 107 (98-107) mmol/L Carbon Dioxide 20 L (22-30) mmol/L Anion Gap 10 mmol/L BUN 6 L (7-17) mg/dL Creatinine 0.68 (0.52-1.04) mg/dL Est GFR (CKD-EPI)AfAm >90 (>60 ml/min/1.73 sqM) Est GFR (CKD-EPI)NonAf >90 (>60 ml/min/1.73 sqM) Glucose 111 H (74-99) mg/dL Plasma Lactic Acid Ramsey (0.7-2.0) mmol/L Calcium 9.4 (8.4-10.2) mg/dL Total Bilirubin 0.4 (0.2-1.3) mg/dL AST 24 (14-36) U/L ALT 13 (4-34) U/L Alkaline Phosphatase 80 (38-126) U/L Total Protein 8.2 (6.3-8.2) g/dL Albumin 4.5 (3.5-5.0) g/dL Influenza Type A RNA Not Detected (Not Detectd) Influenza Type B (PCR) Not Detected (Not Detectd) 09/21/19 Range/Units 01:54 WBC (3.8-10.6) k/uL RBC (3.80-5.40) m/uL Hgb (11.4-16.0) gm/dL Hct (34.0-46.0) % MCV (80.0-100.0) fL MCH (25.0-35.0) pg MCHC (31.0-37.0) g/dL RDW (11.5-15.5) % Plt Count (150-450) k/uL Neutrophils % % Lymphocytes % % Monocytes % % Eosinophils % % Basophils % % Neutrophils # (1.3-7.7) k/uL Lymphocytes # (1.0-4.8) k/uL Monocytes # (0-1.0) k/uL Eosinophils # (0-0.7) k/uL Basophils # (0-0.2) k/uL Sodium (137-145) mmol/L Potassium (3.5-5.1) mmol/L Chloride (98-107) mmol/L Carbon Dioxide (22-30) mmol/L Anion Gap mmol/L BUN (7-17) mg/dL Creatinine (0.52-1.04) mg/dL Est GFR (CKD-EPI)AfAm (>60 ml/min/1.73 sqM) Est GFR (CKD-EPI)NonAf (>60 ml/min/1.73 sqM) Glucose (74-99) mg/dL Plasma Lactic Acid Ramsey 1.8 (0.7-2.0) mmol/L Calcium (8.4-10.2) mg/dL Total Bilirubin (0.2-1.3) mg/dL AST (14-36) U/L ALT (4-34) U/L Alkaline Phosphatase (38-126) U/L Total Protein (6.3-8.2) g/dL Albumin (3.5-5.0) g/dL Influenza Type A RNA (Not Detectd) Influenza Type B (PCR) (Not Detectd) - Radiology Data Radiology results: report reviewed, image reviewed Two-view x-ray of the chest is obtained. Report was reviewed in its entirety. Impression by Dr. Vail shows normal chest. No change. Disposition Clinical Impression: COPD exacerbation Disposition: HOME SELF-CARE Condition: Good Instructions (If sedation given, give patient instructions): COPD (Chronic Obstructive Pulmonary Disease) (ED) Additional Instructions: Complete antibiotic and steroid prescription in full. Increase breathing treatments to every 4 hours. Follow up with primary care physician on Monday. Return to the emergency department for any new, worsening, or concerning symptoms. Prescriptions: Azithromycin 250 mg PO DAILY 4 Days #4 tab Ipratropium-Albuterol Nebulize [Duoneb 0.5 mg-3 mg/3 ml Soln] 3 ml INHALATION Q4H PRN #30 neb PRN Reason: Wheezing/Shortness of breath predniSONE 50 mg PO DAILY #5 tablet Is patient prescribed a controlled substance at d/c from ED?: No Referrals: Brenden Rodriguez MD [Primary Care Provider] - 1-2 days Time of Disposition: 02:45
[2019-09-21 02:17] LABS: African American GFR (CKD) >90 (>60 ml/min/1.73 sqM); Albumin 4.5 g/dL (3.5-5.0); Anion Gap 10 mmol/L; Calcium 9.4 mg/dL (8.4-10.2); Carbon Dioxide 20 mmol/L (22-30); Chloride 107 mmol/L (98-107); Glucose 111 mg/dL (74-99); Non-African American GFR(CKD) >90 (>60 ml/min/1.73 sqM); Sodium 137 mmol/L (137-145); Total Bilirubin 0.4 mg/dL (0.2-1.3); Total Protein 8.2 g/dL (6.3-8.2)
[2019-09-21 02:18] LABS: Blood Urea Nitrogen 6 mg/dL (7-17); Potassium 5.1 mmol/L (3.5-5.1)
[2019-09-21 02:19] LABS: ALT 13 U/L (4-34); AST 24 U/L (14-36); Alkaline Phosphatase 80 U/L (38-126); Basophils # (A) 0.1 k/uL (0-0.2); Basophils % (A) 1 %; Eosinophils # (A) 0.2 k/uL (0-0.7); Eosinophils % (A) 2 %; HCT 46.7 % (34.0-46.0); HGB 15.3 gm/dL (11.4-16.0); Lymphocytes # (A) 2.9 k/uL (1.0-4.8); Lymphocytes % (A) 37 %; MCH 30.1 pg (25.0-35.0); MCHC 32.8 g/dL (31.0-37.0); MCV 91.9 fL (80.0-100.0); Mean Platelet Volume 7.6; Monocytes # (A) 0.5 k/uL (0-1.0); Monocytes % (A) 7 %; Neutrophils # (A) 3.9 k/uL (1.3-7.7); Neutrophils % (A) 51 %; Platelet Count 372 k/uL (150-450); RBC 5.08 m/uL (3.80-5.40); RDW 14.3 % (11.5-15.5); WBC 7.7 k/uL (3.8-10.6)
--- NOTE | 2019-09-21 02:23 | XR ---
EXAMINATION TYPE: XR chest 2V DATE OF EXAM: 09/21/2019 COMPARISON: 07/17/2019 HISTORY: Cough and wheezing TECHNIQUE: FINDINGS: Heart is normal. Lungs are clear of infiltrate. There is left axillary pacemaker. There are no hilar masses. Mediastinum is normal. There is no pleural effusion. Bony thorax is intact. IMPRESSION: Normal chest. No change.
[2019-09-21] MEDS ORDERED: AZITHROMYCIN 500 MG TAB PO STA (02:44)
[2019-09-21 02:49] VITALS: BP 102/66; PULSE 85; RESP 20; TEMP 98.6
== END 2019-09-21 02:56 | disposition home or self-care (01) ==
LOC: EC 01:18
DX: J44.1 Chronic obstructive pulmonary disease with (acute) exacerbation (principal); E78.5 Hyperlipidemia, unspecified; F31.9 Bipolar disorder, unspecified; F41.9 Anxiety disorder, unspecified; I25.10 Atherosclerotic heart disease of native coronary artery without angina pectoris; I25.2 Old myocardial infarction; I50.9 Heart failure, unspecified; K21.9 Gastro-esophageal reflux disease without esophagitis; R26.2 Difficulty in walking, not elsewhere classified; R51 Headache; M79.7 Fibromyalgia; F17.210 Nicotine dependence, cigarettes, uncomplicated; M19.90 Unspecified osteoarthritis, unspecified site; Z79.82 Long term (current) use of aspirin; Z79.899 Other long term (current) drug therapy; Z88.1 Allergy status to other antibiotic agents; Z95.5 Presence of coronary angioplasty implant and graft; Z79.51 Long term (current) use of inhaled steroids
CPT/HCPCS: 36415; 94640; 93005; 80053; 83605; 85025; 87040; 87502; 71046; 96374; 96375; 99285; J2930; J1885

== ENCOUNTER → 2019-09-24 | Outpatient (CLI) | payer MEDICARE ==
--- NOTE | 2019-09-24 21:59 | XR ---
"EXAMINATION TYPE: XR chest 2V DATE OF EXAM: 09/24/2019 COMPARISON: Chest x-ray September 21, 2019. HISTORY: Shortness of breath and cough. TECHNIQUE: Frontal and lateral views of the chest are obtained. FINDINGS: The cardiac silhouette size is stable and upper limits of normal with single lead pacemake r. New bilateral perihilar alveolar and interstitial opacities. No pleural effusion or pneumothorax p resent bilaterally. The osseous structures are intact. IMPRESSION: New moderate bilateral central alveolar and interstitial edema and/or less likely infilt rates. Correlate for fluid overload state and/or CHF exacerbation. A Yellow level critical message alert has been initiated for Brenden Rodriguez MD via the [facility] [employer] | Critical Results System on 09/24/2019 9:57 PM. This message alert has been sent to Brenden Rodriguez MD via the preferences provided by the clinician for the receipt of Radiology Critical Findings. Mo ssage ID [id number]."
== END | disposition home or self-care (01) ==
LOC: RAD 17:02
PROVIDERS: ATTEND Family Medicine
DX: J44.1 Chronic obstructive pulmonary disease with (acute) exacerbation (principal)
CPT/HCPCS: 71046

== ENCOUNTER 2019-09-25 11:05 | Inpatient (IN) | payer MEDICARE ==
--- NOTE | 2019-09-25 11:57 | XR ---
EXAMINATION TYPE: XR chest 2V DATE OF EXAM: 09/25/2019 COMPARISON: Chest x-ray from yesterday. CTA chest April 05, 2019. HISTORY: Difficulty in breathing. TECHNIQUE: Frontal and lateral views of the chest are obtained. FINDINGS: Redemonstration of cardiomegaly with single lead pacemaker/AICD. Persistent bilateral centr al opacities. No pleural effusion or pneumothorax. Osseous structures are intact. IMPRESSION: Suspect CHF exacerbation as there is cardiomegaly with central [id number] alveola r and interstitial edema and/or infiltrates redemonstrated. Findings stable or slightly improved from most recent prior.
[2019-09-25 12:04] LABS: Basophils % (A) 0 %; Eosinophils # (A) 0.2 k/uL (0-0.7); Eosinophils % (A) 1 %; HCT 39.6 % (34.0-46.0); HGB 13.1 gm/dL (11.4-16.0); Lymphocytes # (A) 0.5 k/uL (1.0-4.8); Lymphocytes % (A) 3 %; MCH 30.7 pg (25.0-35.0); MCHC 33.1 g/dL (31.0-37.0); MCV 92.5 fL (80.0-100.0); Mean Platelet Volume 8.3; Monocytes # (A) 0.2 k/uL (0-1.0); Monocytes % (A) 1 %; Neutrophils # (A) 15.7 k/uL (1.3-7.7); Neutrophils % (A) 94 %; Platelet Count 258 k/uL (150-450); RBC 4.28 m/uL (3.80-5.40); RDW 14.4 % (11.5-15.5); WBC 16.7 k/uL (3.8-10.6)
--- NOTE | 2019-09-25 12:06 | ED ---
SOB HPI <Brandon Lemus - Last Filed: 09/25/19 13:37> - General Source: patient Mode of arrival: ambulatory Limitations: no limitations <MoeantRabiaGretchen L - Last Filed: 09/25/19 14:07> - General Chief Complaint: Shortness of Breath Stated Complaint: SOB Time Seen by Provider: 09/25/19 11:22 - Related Data Home Medications Medication Instructions Recorded Confirmed Omeprazole [PriLOSEC] 40 mg PO DAILY 11/29/16 09/25/19 Atorvastatin [Lipitor] 80 mg PO HS 11/30/16 09/25/19 Divalproex ER [Depakote ER] 500 mg PO DAILY 02/06/17 09/25/19 Alendronate Sodium 70 mg PO COHEN 06/29/17 09/25/19 Albuterol Sulfate [Ventolin HFA] 2 puff INHALATION RT-Q6H PRN 09/25/19 09/25/19 Budesonide-Formot 160-4.5 Mcg 2 puff INHALATION RT-BID 09/25/19 09/25/19 [Symbicort 160-4.5 Mcg Inhaler] Ciprofloxacin HCl [Cipro] 500 mg PO Q12HR 09/25/19 09/25/19 Escitalopram [Lexapro] 10 mg PO DAILY 09/25/19 09/25/19 Gabapentin [Neurontin] 300 mg PO TID 09/25/19 09/25/19 HYDROcodone/APAP 7.5-325MG [[place] 1 tab PO Q8H PRN 09/25/19 09/25/19 7.5-325] Ibuprofen [Motrin Ib] 400 mg PO Q8H PRN 09/25/19 09/25/19 Ipratropium-Albuterol Nebulize 3 ml INHALATION RT-Q4H PRN 09/25/19 09/25/19 [Duoneb 0.5 mg-3 mg/3 ml Soln] Metoprolol Tartrate [Lopressor] 25 mg PO TID 09/25/19 09/25/19 Ticagrelor [Brilinta] 60 mg PO BID 09/25/19 09/25/19 Umeclidinium [place] [[place] 1 puff INHALATION RT-DAILY 09/25/19 09/25/19 Ellipta] predniSONE See Taper PO DAILY 09/25/19 09/25/19 tiZANidine [Zanaflex] 4 mg PO TID PRN 09/25/19 09/25/19 Previous Rx's Medication Instructions Recorded Aspirin 81 mg PO DAILY #30 chew 08/16/16 Nitroglycerin Sl Tabs [Nitrostat] 0.4 mg SUBLINGUAL Q5M PRN #0 tab 12/01/16 Allergies Allergy/AdvReac Type Severity Reaction Status Date / Time moxifloxacin HCl Allergy Rash/Hives Verified 09/25/19 12:12 [From Avelox] Review of Systems ROS Other: All systems not noted in ROS Statement are negative. <Brandon Lemus - Last Filed: 09/25/19 13:37> ROS Other: All systems not noted in ROS Statement are negative. <Gretchen Bowser - Last Filed: 09/25/19 14:07> ROS Statement: Those systems with pertinent positive or pertinent negative responses have been documented in the HPI. Past Medical History Past Medical History: Coronary Artery Disease (CAD), Chest Pain / Angina, Fibromyalgia, GERD/Reflux, Hyperlipidemia, Myocardial Infarction ([place]), Oste oarthritis (OA) Additional Past Medical History / Comment(s): [place] X4, lumbar DDD, lumbar facet arthropathy,occ migraines, pt states that she is on heart and B/P medication to make her heart stronger, not for HTN, Hx of UTI & Pneumonia; see Dr Borja's H&P Last Myocardial Infarction Date:: 08/13/2016 History of Any Multi-Drug Resistant Organisms: None Reported Past Surgical History: Heart Catheterization, Heart Catheterization With Stent Additional Past Surgical History / Comment(s): 03/03/15 PTCA with stent to RCA. Other SX HX: 2003 LAD stent, 2008 RCA with 3 stents, 2008 PDA stent, 2009 CX stent, 2010 proximal diag stent, 2012 OM stent, 2015 stent 2 to RCA ,several PAIN CLINIC PROCEDURES Past Anesthesia/Blood Transfusion Reactions: No Reported Reaction Date of Last Stent Placement:: 08-13-16 Past Psychological History: Anxiety, Bipolar, Depression Smoking Status: Current every day smoker Past Alcohol Use History: Occasional Past Drug Use History: Marijuana - Past Family History Mother Family Medical History: Coronary Artery Disease (CAD), Fibromyalgia, Hyperlipidemia Additional Family Medical History / Comment(s): heart disease Father Family Medical History: CVA/TIA, Fibromyalgia, Hyperlipidemia, Hypertension, Musculoskeletal Disorder Additional Family Medical History / Comment(s): MS Sister(s) History Unknown: Yes Family Medical History: Hyperlipidemia <Gretchen Bowser - Last Filed: 09/25/19 14:07> General Exam Limitations: no limitations <Gretchen Bowser - Last Filed: 09/25/19 14:07> Course <Brandon Lemus - Last Filed: 09/25/19 13:37> Vital Signs 09/25/19 09/25/19 09/25/19 11:09 11:25 13:38 Temperature 97.9 F Pulse Rate 82 83 Respiratory 18 22 18 Rate Blood Pressure 129/75 117/61 O2 Sat by Pulse 95 95 Oximetry - Reevaluation(s) Reevaluation #1: 09/25/19 13:37 PA supervision: I personally evaluate this case and did discuss the case also with Dr. Rodriguez. Patient has been having difficulty breathing for for 5 days she was seen in outpatient clinic diagnosed with pneumonia and was placed on medication please steroids patient presents with breathing difficulties evidence of CHF with elevated BNP. White count with left shift cannot rule out a patient will be admitted she also is a smoker. Cardiology and pulmonary medicine will be consulted. (Brandon Lemus) Medical Decision Making - Lab Data Result diagrams: 09/25/19 11:48 09/25/19 11:48 <AllanBrandon - Last Filed: 09/25/19 13:37> - Lab Data Result diagrams: 09/25/19 11:48 09/25/19 11:48 <Gretchen Bowser - Last Filed: 09/25/19 14:07> - Lab Data Lab Results 09/25/19 09/25/19 09/25/19 Range/Units 11:48 11:48 11:48 WBC 16.7 H (3.8-10.6) k/uL RBC 4.28 (3.80-5.40) m/uL Hgb 13.1 (11.4-16.0) gm/dL Hct 39.6 (34.0-46.0) % MCV 92.5 (80.0-100.0) fL MCH 30.7 (25.0-35.0) pg MCHC 33.1 (31.0-37.0) g/dL RDW 14.4 (11.5-15.5) % Plt Count 258 (150-450) k/uL Neutrophils % 94 % Lymphocytes % 3 % Monocytes % 1 % Eosinophils % 1 % Basophils % 0 % Neutrophils # 15.7 H (1.3-7.7) k/uL Lymphocytes # 0.5 L (1.0-4.8) k/uL Monocytes # 0.2 (0-1.0) k/uL Eosinophils # 0.2 (0-0.7) k/uL Basophils # 0.0 (0-0.2) k/uL PT 9.8 (9.0-12.0) sec INR 0.9 (<1.2) APTT 24.6 (22.0-30.0) sec D-Dimer (<0.60) mg/L FEU Sodium 137 (137-145) mmol/L Potassium 4.1 (3.5-5.1) mmol/L Chloride 108 H (98-107) mmol/L Carbon Dioxide 24 (22-30) mmol/L Anion Gap 5 mmol/L BUN 10 (7-17) mg/dL Creatinine 0.63 (0.52-1.04) mg/dL Est GFR (CKD-EPI)AfAm >90 (>60 ml/min/1.73 sqM) Est GFR (CKD-EPI)NonAf >90 (>60 ml/min/1.73 sqM) Glucose 131 H (74-99) mg/dL Plasma Lactic Acid Ramsey (0.7-2.0) mmol/L Calcium 8.8 (8.4-10.2) mg/dL Magnesium 2.1 (1.6-2.3) mg/dL Total Bilirubin 1.3 (0.2-1.3) mg/dL AST 31 (14-36) U/L ALT 11 (4-34) U/L Alkaline Phosphatase 66 (38-126) U/L Troponin I (0.000-0.034) ng/mL NT-Pro-B Natriuret Pep pg/mL Total Protein 6.8 (6.3-8.2) g/dL Albumin 3.6 (3.5-5.0) g/dL 09/25/19 09/25/19 09/25/19 Range/Units 11:48 11:48 11:48 WBC (3.8-10.6) k/uL RBC (3.80-5.40) m/uL Hgb (11.4-16.0) gm/dL Hct (34.0-46.0) % MCV (80.0-100.0) fL MCH (25.0-35.0) pg MCHC (31.0-37.0) g/dL RDW (11.5-15.5) % Plt Count (150-450) k/uL Neutrophils % % Lymphocytes % % Monocytes % % Eosinophils % % Basophils % % Neutrophils # (1.3-7.7) k/uL Lymphocytes # (1.0-4.8) k/uL Monocytes # (0-1.0) k/uL Eosinophils # (0-0.7) k/uL Basophils # (0-0.2) k/uL PT (9.0-12.0) sec INR (<1.2) APTT (22.0-30.0) sec D-Dimer (<0.60) mg/L FEU Sodium (137-145) mmol/L Potassium (3.5-5.1) mmol/L Chloride (98-107) mmol/L Carbon Dioxide (22-30) mmol/L Anion Gap mmol/L BUN (7-17) mg/dL Creatinine (0.52-1.04) mg/dL Est GFR (CKD-EPI)AfAm (>60 ml/min/1.73 sqM) Est GFR (CKD-EPI)NonAf (>60 ml/min/1.73 sqM) Glucose (74-99) mg/dL Plasma Lactic Acid Ramsey 0.9 (0.7-2.0) mmol/L Calcium (8.4-10.2) mg/dL Magnesium (1.6-2.3) mg/dL Total Bilirubin (0.2-1.3) mg/dL AST (14-36) U/L ALT (4-34) U/L Alkaline Phosphatase (38-126) U/L Troponin I <0.012 (0.000-0.034) ng/mL NT-Pro-B Natriuret Pep 1920 pg/mL Total Protein (6.3-8.2) g/dL Albumin (3.5-5.0) g/dL 09/25/19 Range/Units 11:48 WBC (3.8-10.6) k/uL RBC (3.80-5.40) m/uL Hgb (11.4-16.0) gm/dL Hct (34.0-46.0) % MCV (80.0-100.0) fL MCH (25.0-35.0) pg MCHC (31.0-37.0) g/dL RDW (11.5-15.5) % Plt Count (150-450) k/uL Neutrophils % % Lymphocytes % % Monocytes % % Eosinophils % % Basophils % % Neutrophils # (1.3-7.7) k/uL Lymphocytes # (1.0-4.8) k/uL Monocytes # (0-1.0) k/uL Eosinophils # (0-0.7) k/uL Basophils # (0-0.2) k/uL PT (9.0-12.0) sec INR (<1.2) APTT (22.0-30.0) sec D-Dimer 0.42 (<0.60) mg/L FEU Sodium (137-145) mmol/L Potassium (3.5-5.1) mmol/L Chloride (98-107) mmol/L Carbon Dioxide (22-30) mmol/L Anion Gap mmol/L BUN (7-17) mg/dL Creatinine (0.52-1.04) mg/dL Est GFR (CKD-EPI)AfAm (>60 ml/min/1.73 sqM) Est GFR (CKD-EPI)NonAf (>60 ml/min/1.73 sqM) Glucose (74-99) mg/dL Plasma Lactic Acid Ramsey (0.7-2.0) mmol/L Calcium (8.4-10.2) mg/dL Magnesium (1.6-2.3) mg/dL Total Bilirubin (0.2-1.3) mg/dL AST (14-36) U/L ALT (4-34) U/L Alkaline Phosphatase (38-126) U/L Troponin I (0.000-0.034) ng/mL NT-Pro-B Natriuret Pep pg/mL Total Protein (6.3-8.2) g/dL Albumin (3.5-5.0) g/dL - EKG Data EKG Comments: Ventricular rate 83 bpm, VT interval 154 ms, QRS christian 116 ms, QT/QTC 410/481. This is normal sinus. There is findings consistent with possible left ventricular hypertrophy. No ST elevation or depression is noted. Compared to that of (Gretchen Bowser) Disposition <Brandon Lemus - Last Filed: 09/25/19 13:37> Is patient prescribed a controlled substance at d/c from ED?: No Time of Disposition: 14:07 Decision to Admit Reason: Admit from EC Decision Date: 09/25/19 Decision Time: 14:07 <Gretchen Bowser - Last Filed: 09/25/19 14:07> Clinical Impression: CHF (congestive heart failure), Shortness of breath, Leukocytosis, URI (upper respiratory infection) Disposition: ADMITTED IP TO THIS HOSP Condition: Serious Referrals: Brenden Rodriguez MD [Primary Care Provider] - 1-2 days
[2019-09-25 12:11] LABS: ALT 11 U/L (4-34); AST 31 U/L (14-36); African American GFR (CKD) >90 (>60 ml/min/1.73 sqM); Albumin 3.6 g/dL (3.5-5.0); Alkaline Phosphatase 66 U/L (38-126); Anion Gap 5 mmol/L; Blood Urea Nitrogen 10 mg/dL (7-17); Calcium 8.8 mg/dL (8.4-10.2); Carbon Dioxide 24 mmol/L (22-30); Chloride 108 mmol/L (98-107); Glucose 131 mg/dL (74-99); Magnesium 2.1 mg/dL (1.6-2.3); Non-African American GFR(CKD) >90 (>60 ml/min/1.73 sqM); Sodium 137 mmol/L (137-145); Total Bilirubin 1.3 mg/dL (0.2-1.3); Total Protein 6.8 g/dL (6.3-8.2)
[2019-09-25 12:12] LABS: Potassium 4.1 mmol/L (3.5-5.1)
[2019-09-25 12:15] LABS: INR 0.9 (<1.2); Partial Thromboplastin Time 24.6 sec (22.0-30.0); Prothrombin Time 9.8 sec (9.0-12.0)
[2019-09-25] MEDS ORDERED: FUROSEMIDE 10 MG/ML 4 ML VIAL IV STA (12:46)
[2019-09-25] MEDS ORDERED: LORazepam 2 MG/ML INJ IV STA (13:19)
[2019-09-25] MEDS ORDERED: MORPHINE SULFATE 4 MG/ML SYRINGE IVP STA (13:19)
[2019-09-25] MEDS ORDERED: NALOXONE 0.4 MG/ML 1 ML VIAL IV PRN (14:05)
[2019-09-25] MEDS ORDERED: INFLUENZA VACCINE (6 MOS+) 60 MCG/0.5 ML SYRINGE IM ONE (14:56)
[2019-09-25] MEDS ORDERED: NITROGLYCERIN SL TABS 0.4 MG TAB SUBLINGUAL PRN (16:46)
[2019-09-25] MEDS ORDERED: IPRATROPIUM-ALBUTEROL 3 ML NEB INHALATION PRN (16:47)
[2019-09-25] MEDS ORDERED: ACETAMINOPHEN TAB 325 MG TAB PO PRN (17:08)
[2019-09-25] MEDS: PANTOPRAZOLE 40 MG/10 ML VIAL IVP SCH (17:33)
[2019-09-25] MEDS: DIVALPROEX ER 500 MG TAB.ER.24H PO SCH (17:34)
[2019-09-25] MEDS: HYDROcodone/APAP 7.5-325MG 1 EACH TAB PO PRN (17:43)
[2019-09-25] MEDS: GABAPENTIN 300 MG CAP PO SCH ×2 (17:43→21:29)
[2019-09-25] MEDS: tiZANidine 4 MG TAB PO PRN (17:43)
[2019-09-25] MEDS: IPRATROPIUM-ALBUTEROL 3 ML NEB INHALATION SCH (21:18)
[2019-09-25] MEDS: SYMBICORT 160-4.5 MCG INHALER INHALATION SCH (21:18)
[2019-09-25] MEDS: METOPROLOL TARTRATE 25 MG TAB PO SCH (21:29)
[2019-09-25] MEDS: ATORVASTATIN 80 MG TAB PO SCH (21:29)
[2019-09-25] MEDS: TICAGRELOR 60 MG PO SCH (21:30)
[2019-09-25] MEDS ORDERED: GABAPENTIN 300 MG CAP PO SCH (22:00)
[2019-09-25] MEDS: hydrOXYzine PAMOATE 25 MG CAP PO PRN (23:26)
[2019-09-25] MEDS: traMADol 50 MG TAB PO PRN (23:27)
[2019-09-26 06:54] LABS: Basophils % (A) 0 %; Eosinophils # (A) 0.1 k/uL (0-0.7); Eosinophils % (A) 1 %; HCT 38.9 % (34.0-46.0); HGB 12.7 gm/dL (11.4-16.0); Lymphocytes # (A) 2.7 k/uL (1.0-4.8); Lymphocytes % (A) 25 %; MCH 30.3 pg (25.0-35.0); MCHC 32.7 g/dL (31.0-37.0); MCV 92.6 fL (80.0-100.0); Mean Platelet Volume 8.3; Monocytes # (A) 0.4 k/uL (0-1.0); Monocytes % (A) 4 %; Neutrophils # (A) 7.4 k/uL (1.3-7.7); Neutrophils % (A) 69 %; Platelet Count 278 k/uL (150-450); RBC 4.19 m/uL (3.80-5.40); RDW 14.4 % (11.5-15.5); WBC 10.8 k/uL (3.8-10.6)
[2019-09-26 07:12] LABS: African American GFR (CKD) >90 (>60 ml/min/1.73 sqM); Anion Gap 6 mmol/L; Blood Urea Nitrogen 14 mg/dL (7-17); Calcium 8.3 mg/dL (8.4-10.2); Carbon Dioxide 27 mmol/L (22-30); Chloride 104 mmol/L (98-107); Glucose 86 mg/dL (74-99); Non-African American GFR(CKD) >90 (>60 ml/min/1.73 sqM); Sodium 137 mmol/L (137-145)
[2019-09-26 07:27] LABS: Potassium 3.3 mmol/L (3.5-5.1)
[2019-09-26] MEDS: IPRATROPIUM-ALBUTEROL 3 ML NEB INHALATION SCH ×4 (07:59→20:10)
[2019-09-26] MEDS: SYMBICORT 160-4.5 MCG INHALER INHALATION SCH ×2 (07:59→20:10)
[2019-09-26] MEDS ORDERED: ESCITALOPRAM 10 MG TAB PO SCH (09:00)
[2019-09-26] MEDS: tiZANidine 4 MG TAB PO PRN ×2 (09:03→21:15)
[2019-09-26] MEDS: HYDROcodone/APAP 7.5-325MG 1 EACH TAB PO PRN ×2 (09:03→16:18)
[2019-09-26] MEDS: PANTOPRAZOLE 40 MG/10 ML VIAL IVP SCH (09:03)
[2019-09-26] MEDS: GABAPENTIN 300 MG CAP PO SCH ×3 (09:04→21:05)
[2019-09-26] MEDS: METOPROLOL TARTRATE 25 MG TAB PO SCH ×3 (09:04→21:05)
[2019-09-26] MEDS: ASPIRIN 81 MG PO SCH (09:04)
[2019-09-26] MEDS: DIVALPROEX ER 500 MG TAB.ER.24H PO SCH (09:05)
[2019-09-26] MEDS: TICAGRELOR 60 MG PO SCH ×2 (09:05→21:05)
[2019-09-26] MEDS ORDERED: Potassium Replacement Protocol 1 EACH MISC MISCELLANE PRN ×2 (09:22→14:51)
[2019-09-26] MEDS ORDERED: FUROSEMIDE 10 MG/ML 4 ML VIAL IV SCH (09:30)
[2019-09-26] MEDS ORDERED: AZITHROMYCIN 500 MG TAB PO SCH (09:30)
[2019-09-26] MEDS: POTASSIUM CHLORIDE ER 20 MEQ TAB.ER PO SCH ×2 (09:51→11:57)
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
[2019-09-26] MEDS ORDERED: SACUBITRIL/VALSARTAN 24 MG-26 MG TABLET PO SCH (11:00)
[2019-09-26] MEDS: traMADol 50 MG TAB PO PRN ×2 (11:57→18:36)
[2019-09-26] MEDS: hydrOXYzine PAMOATE 25 MG CAP PO PRN (12:03)
[2019-09-26] MEDS: FUROSEMIDE 10 MG/ML 4 ML VIAL IV SCH ×2 (13:22→21:05)
[2019-09-26 13:24] VITALS: BMI 34.9
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
[2019-09-26] MEDS: LIDOCAINE 5% PATCH TOPICAL SCH (16:11)
[2019-09-26] MEDS: AZITHROMYCIN 500 MG TAB PO SCH (16:11)
--- NOTE | 2019-09-26 17:33 | ECHOF ---
Referral Reason:chf MEASUREMENTS -------- HEIGHT: 157.5 cm WEIGHT: 86.2 kg BP: 110/66 RVIDd: 3.4 cm (< 3.3) IVSd: 1.2 cm (0.6 - 1.1) LVIDd: 5.6 cm (3.9 - 5.3) LVPWd: 1.2 cm (0.6 - 1.1) IVSs: 1.1 cm LVIDs: 5.1 cm LVPWs: 1.3 cm LAESV Index (A-L): 42.98 ml/m Ao Diam: 2.9 cm (2.0 - 3.7) AV Cusp: 2.3 cm (1.5 - 2.6) MV EXCURSION: 17.009 mm (> 18.000) MV EF SLOPE: 94 mm/s (70 - 150) EPSS: 2.5 cm MV E Alfie: 1.18 m/s MV DecT: 187 ms MV A Alfie: 0.61 m/s MV E/A Ratio: 1.94 AR PHT: 664 ms RAP: 5.00 mmHg RVSP: 32.33 mmHg FINDINGS -------- Sinus rhythm. This was a technically adequate study. The left ventricle is mildly dilated. Left ventricular wall thickness is normal. There is severe global hypokinesis of LV . Overall left ventricular systolic function is severely impaired with, an EF between 20 - 25 %. Increased Lap Grade II Diastolic Dysfunction. The right ventricle is mildly enlarged. LA is moderately dilated 34-39 ml/m2 The right atrium was not well visualized. Electronic pacemaker lead seen in the right atrial cavity . Interatrial and interventricular septum intact. There is [id number] aortic regurgitation. There is no evidence of aortic stenosis. Moderate mitral regurgitation is present. Mild tricuspid regurgitation present. There is borderline pulmonary artery hypertension. The righ t ventricular systolic pressure, as measured by Doppler, is 32.33mmHg. There is no pulmonic regurgitation present. The aortic root size is normal. IVC Not well visulized. There is no pericardial effusion. CONCLUSIONS -------- 1. Sinus rhythm. 2. This was a technically adequate study. 3. The left ventricle is mildly dilated. 4. Left ventricular wall thickness is normal. 5. There is severe global hypokinesis of LV . 6. Overall left ventricular systolic function is severely impaired with, an EF between 20 - 25 %. 7. Increased Lap Grade II Diastolic Dysfunction. 8. The right ventricle is mildly enlarged. 9. LA is moderately dilated 34-39 ml/m2 10. The right atrium was not well visualized. 11. Electronic pacemaker lead seen in the right atrial cavity. 12. Interatrial and interventricular septum intact. 13. There is [id number] aortic regurgitation. 14. There is no evidence of aortic stenosis. 15. Moderate mitral regurgitation is present. 16. Mild tricuspid regurgitation present. 17. There is borderline pulmonary artery hypertension. 18. The right ventricular systolic pressure, as measured by Doppler, is 32.33mmHg. 19. There is no pulmonic regurgitation present. 20. The aortic root size is normal. 21. IVC Not well visulized. 22. There is no pericardial effusion. LINE CONSTRUCTION SUPERVISOR: Katelyn Toussaint RDCS
[2019-09-26] MEDS: ATORVASTATIN 80 MG TAB PO SCH (21:05)
[2019-09-27] MEDS: PANTOPRAZOLE 40 MG TABLET PO SCH (06:51)
[2019-09-27 06:57] LABS: Glucose,Whole Blood 88 mg/dL (75-99)
[2019-09-27] MEDS: SYMBICORT 160-4.5 MCG INHALER INHALATION SCH ×2 (07:22→19:33)
[2019-09-27] MEDS: IPRATROPIUM-ALBUTEROL 3 ML NEB INHALATION SCH ×4 (07:22→19:33)
[2019-09-27 07:26] LABS: African American GFR (CKD) >90 (>60 ml/min/1.73 sqM); Anion Gap 6 mmol/L; Blood Urea Nitrogen 13 mg/dL (7-17); Calcium 8.2 mg/dL (8.4-10.2); Carbon Dioxide 29 mmol/L (22-30); Chloride 100 mmol/L (98-107); Glucose 86 mg/dL (74-99); Magnesium 1.9 mg/dL (1.6-2.3); Non-African American GFR(CKD) >90 (>60 ml/min/1.73 sqM); Potassium 3.8 mmol/L (3.5-5.1); Sodium 135 mmol/L (137-145)
[2019-09-27] MEDS: GABAPENTIN 300 MG CAP PO SCH ×3 (07:49→20:35)
[2019-09-27] MEDS: FUROSEMIDE 10 MG/ML 4 ML VIAL IV SCH ×2 (07:49→20:35)
[2019-09-27] MEDS: DIVALPROEX ER 500 MG TAB.ER.24H PO SCH (07:50)
[2019-09-27] MEDS: METOPROLOL TARTRATE 25 MG TAB PO SCH ×3 (07:50→20:35)
[2019-09-27] MEDS: ASPIRIN 81 MG PO SCH (07:50)
[2019-09-27] MEDS: AZITHROMYCIN 500 MG TAB PO SCH (07:50)
[2019-09-27] MEDS: TICAGRELOR 60 MG PO SCH ×2 (07:50→20:44)
[2019-09-27] MEDS: SACUBITRIL/VALSARTAN 24 MG-26 MG TABLET PO SCH ×2 (07:50→20:44)
[2019-09-27 07:51] LABS: HCT 40.6 % (34.0-46.0); HGB 13.5 gm/dL (11.4-16.0); MCHC 33.2 g/dL (31.0-37.0); MCV 93.3 fL (80.0-100.0); Mean Platelet Volume 8.1; Platelet Count 271 k/uL (150-450); RBC 4.35 m/uL (3.80-5.40); RDW 14.1 % (11.5-15.5); WBC 12.3 k/uL (3.8-10.6)
[2019-09-27] MEDS: HYDROcodone/APAP 7.5-325MG 1 EACH TAB PO PRN ×2 (07:51→15:41)
[2019-09-27] MEDS: LIDOCAINE 5% PATCH TOPICAL SCH (07:51)
--- NOTE | 2019-09-27 08:10 | XR ---
EXAMINATION TYPE: XR chest 1V portable DATE OF EXAM: 09/27/2019 COMPARISON: 09/25/2019 INDICATION: Pulmonary edema TECHNIQUE: Single frontal view of the chest is obtained. FINDINGS: The heart size is normal. The pulmonary vasculature is upper limits of normal. Suspicious focal consolidation is not evident. Previous right perihilar infiltrate is resolving. Pace maker overlies left chest. IMPRESSION: 1. Resolving pulmonary edema and volume overload
[2019-09-27 12:23] LABS: Glucose,Whole Blood 89 mg/dL (75-99)
--- NOTE | 2019-09-27 13:06 | PN ---
PROGRESS NOTE Mrs. Denise is a 43-year-old female with known history of severe ischemic cardiomyopathy who presented with symptoms of dyspnea, congestive heart failure. She is feeling better this morning, her breathing is better. She denies any symptoms of chest pain. She has been ambulating without difficulty. She denies any dizziness or palpitation. She denies any nausea. She was started on Entresto yesterday and has tolerated her dose. She continues in addition on metoprolol tartrate 25 mg 3 times a day, aspirin once a day, Lipitor 80 mg daily and continued on Lasix 40 mg IV q.12 hours. PHYSICAL EXAMINATION: Blood pressure 110/50 with a heart rate in the 70s. LUNGS: Clear. HEART: Regular rate and rhythm. S1, S2. No S3 with a systolic murmur, no diastolic murmur. ABDOMEN: Soft, nontender. EXTREMITIES: Trace edema. LAB DATA: Revealed BUN and creatinine 13 and 0.77. Hemoglobin of 3.8, white blood cell of 12.3, hemoglobin of 13.5. She had an echocardiogram performed yesterday that revealed a severely impaired left ventricular systolic function, ejection fraction 20% to 25% with evidence of moderate mitral and mild tricuspid regurgitation and no significant pulmonary hypertension. IMPRESSION: 1. Congestive heart failure in a patient with known history of severe ischemic cardiomyopathy. 2. Status post multiple percutaneous revascularization. 3. History of ICD implantation. 4. Hypertension. 5. Hyperlipidemia. RECOMMENDATION: I will continue the IV diuretics for another 24 hours, continue on the present dose off her Entresto. If she is stable, I am hopeful that she will be able to be discharged home tomorrow and then depending on her progress, the adjustment on her Entresto dose will be done. MMODL / IJN: [id number] /
[2019-09-27] MEDS: traMADol 50 MG TAB PO PRN (14:15)
--- NOTE | 2019-09-27 16:06 | P.PN ---
Subjective Progress Note Date: 09/27/19 On 09/27/2019 patient seen in follow-up on selective care unit, she remains on IV diuretics, she is maintaining negative fluid balance, -1360 mL over the last 24 hours, breathing easier, lung sounds reveal minimal scattered rhonchi and bilateral bases, no wheezes, occasional cough, with no significant phlegm production, no fever or chills, she remains on combination of azithromycin and Rocephin, breathing treatments. Her breathing seems to be comfortable, cardiology is following and patient was started on Entresto. blood pressure tolerating it well. Objective - Vital Signs Vital signs: Vital Signs Temp 98.1 F 09/27/19 08:00 Pulse 69 09/27/19 12:00 Resp 20 09/27/19 12:00 BP 100/65 09/27/19 12:00 Pulse Ox 100 09/27/19 12:00 Intake & Output 09/26/19 09/27/19 09/27/19 18:59 06:59 18:59 Intake Total 900 600 240 Output Total 750 1850 1600 Balance 150 -1250 -1360 Weight 86.6 kg 87.3 kg Intake: Oral 900 600 240 Output: Urine 750 1850 1600 Other: Voiding Method Toilet # Voids 2 2 2 - Exam GENERAL EXAM: Alert, very pleasant, 43-year-old white female, on room air comfortable in no apparent distress. HEAD: Normocephalic/atraumatic. EYES: Normal reaction of pupils, equal size. Conjunctiva pink, sclera white. NOSE: Clear with pink turbinates. THROAT: No erythema or exudates. NECK: No masses, no JVD, no thyroid enlargement, no adenopathy. CHEST: No chest wall deformity. Symmetrical expansion. LUNGS: Equal air entry with no crackles, wheeze, rhonchi or dullness. CVS: Regular rate and rhythm, normal S1 and S2, no gallops, no murmurs, no rubs ABDOMEN: Soft, nontender. No hepatosplenomegaly, normal bowel sounds, no guarding or rigidity. EXTREMITIES: No clubbing, no edema, no cyanosis, 2+ pulses and upper and lower extremities. MUSCULOSKELETAL: Muscle strength and tone normal. SPINE: No scoliosis or deformity SKIN: No rashes CENTRAL NERVOUS SYSTEM: Alert and oriented -3. No focal deficits, tone is normal in all 4 extremities. PSYCHIATRIC: Alert and oriented -3. Appropriate affect. Intact judgment and insight. - Labs CBC & Chem 7: 09/27/19 06:27 09/27/19 06:27 Labs: Abnormal Lab Results - Last 24 Hours (Table) 09/27/19 09/27/19 Range/Units 06:27 06:27 WBC 12.3 H (3.8-10.6) k/uL Sodium 135 L (137-145) mmol/L Calcium 8.2 L (8.4-10.2) mg/dL Microbiology - Last 24 Hours (Table) 09/25/19 11:48 Blood Culture - Preliminary Blood No Growth after 48 hours Assessment and Plan Plan: Assessment: 1 acute bronchitis, could be viral 2 acute CHF exacerbation with evidence of pulmonary edema/interstitial edema on the chest x-ray currently on IV Lasix and Entresto was also added to her regimen 3 coronary artery disease with previous coronary intervention and stenting currently free of any chest pain 4 CHF with ischemic cardiomyopathy and segmental wall motion abnormalities and a previous ejection fraction of 20-25% 5 history of AICD placement 6 chronic bronchitis secondary to smoking. The patient is trying hard to quit s moking. The patient has been maintained on Symbicort and Incruse on outpatient basis. 7 history of previous myocardial infarction 8 osteoarthritis with degenerative lumbar disc disease 9 chronic migraines 10 hypertension 11 hyperlipidemia 12 fibromyalgia 13 acid reflux 14 bipolar Plan: Continue current medical treatment, diuretics per cardiology, patient was started on Entresto, blood pressure is tolerating it well, hemodynamics are stable, breathing is improving, she is in negative fluid balance follow-up chest x-ray today shows improving pulmonary edema. Continue with same antibiotics, c ontinue breathing treatments no rhonchi or wheezing, doing well, she could be cleared for discharge from pulmonary perspective once she is cleared by cardiology, which is anticipated to be in on the 24 hours, we will need outpatient follow-up with Dr. Edward in the office in 7-10 days I performed a history & physical examination of the patient and discussed their management with my nurse practitioner, Angelica Tovar. I reviewed the nurse practitioner's note and agree with the documented findings and plan of care. Lung sounds are positive for diminished breath sounds. The findings and the impression was discussed with the patient. I attest to the documentation by the nurse practitioner. Time with Patient: Less than 30
--- NOTE | 2019-09-27 17:43 | P.PN ---
Subjective Progress Note Date: 09/27/19 This is a 43-year-old female with history of chronic intermittent asthma, CAD, CT, CHF, COPD, fibromyalgia, gastroesophageal reflux disease, AICD, anxiety, bipolar, depression, ongoing nicotine dependence, marijuana use presented to the ER with worsening shortness of breath over the last 5 days. Patient had proceeded to clinic, diagnosed with pneumonia, placed on antibiotics, steroids. Denies fevers .Chest x-ray suggestive of CHF with interstitial edema, no extremity edema.BNP 1920. EKG report in normal sinus rhythm, left ventricular hypertrophy, lateral infarct, age undetermined. Troponin negative 1. Afebrile, elevated ABC on admission 16.7, trending down to 10.8. Potassium 3.3, creatinine 0.72. Magnesium 2.1. Vital signs stable, maintaining O2 sats in the 90s on 4 L nasal cannula. Pulmonary and cardiology consulted. 09/27/2019 maintained on Rocephin, azithromycin, nebulized bronchodilators. diuresing well on Lasix IV push with 24-hour I&O reflecting a negative fluid balance. Chest x-ray reports resolving pulmonary edema and volume overload. Denies chest pain, palpitations or shortness of breath. No wheezing. Continues on Entresto as per cardiology, vital signs stable. Ambulating, tolerating exertion well. Denies any lightheadedness, dizziness or focal deficits. Objective - Vital Signs Vital signs: Vital Signs Temp 98.1 F 09/27/19 08:00 Pulse 70 09/27/19 16:17 Resp 18 09/27/19 16:05 BP 114/62 09/27/19 16:00 Pulse Ox 92 L 09/27/19 16:05 Intake & Output 09/26/19 09/27/19 09/27/19 18:59 06:59 18:59 Intake Total 900 600 240 Output Total 750 1850 1600 Balance 150 -1250 -1360 Weight 86.6 kg 87.3 kg Intake: Oral 900 600 240 Output: Urine 750 1850 1600 Other: Voiding Method Toilet # Voids 2 2 2 - Exam VITAL SIGNS: [As above] GENERAL: Sitting up in bed, no acute distress HEENT: Conjunctivae normal. eyes normal. NECK: No JVD. No thyroid enlargement. No LNs CARDIOVASCULAR: S1, S2 regular. no murmur RESPIRATION: Breath sounds diminished in the bases. No rhonchi, crackles or wheezes ABDOMEN: Soft, nontender . No guarding. no masses palpable. No ascites, No hepatosplenomegaly.Bowel sounds heard. LEGS: No edema. no swelling PSYCHIATRY: Alert and oriented X3, mood and affect normal. NERVOUS SYSTEM: Cranial N 2-12 grossly normal. Moves all 4 limbs. Diffuse weakness No focal deficits. Strength and sensation grossly intact.. Skin: no lesions, no rash Joints: No active swelling. No inflammation. Lymphatic system. No LN neck axilla or groin. - Labs CBC & Chem 7: 09/27/19 06:27 09/27/19 06:27 Labs: Abnormal Lab Results - Last 24 Hours (Table) 09/27/19 09/27/19 Range/Units 06:27 06:27 WBC 12.3 H (3.8-10.6) k/uL Sodium 135 L (137-145) mmol/L Calcium 8.2 L (8.4-10.2) mg/dL Microbiology - Last 24 Hours (Table) 09/25/19 11:48 Blood Culture - Preliminary Blood No Growth after 48 hours Assessment and Plan Assessment: Acute on chronic CHF, systolic dysfunction, EF 20-25% Acute bronchitis, suspect viral Ischemic cardiomyopathy, history of AICD placement CAD, history of CT, prior stents Ongoing nicotine dependence Chronic bronchitis secondary to the above Hypertension Hyperlipidemia Bipolar Gastroesophageal reflux disease Degenerative disc disease, osteoarthritis Plan: Continue current medication regime , Entresto,monitoring and symptomatic treatment. IV push diuretics as per cardiology, for another 24 hours .close monitoring of renal function with repeat labs ordered for a.m. continue IV antibiotics of Rocephin, Zithromax, nebulized bronchodilators. Smoking cessation reinforced. Increase ambulation as tolerated. Discharge planning in progress for tomorrow pending cardiology clearance. The impression and plan of care has been dictated as directed. : I performed a history and examination of this patient, discussed the same with the dictator. I agree with the dictator's note ,documented as a scribe. Any additional findings or plans will be noted.
[2019-09-27] MEDS: tiZANidine 4 MG TAB PO PRN (20:35)
[2019-09-27] MEDS: ATORVASTATIN 80 MG TAB PO SCH (20:35)
[2019-09-28] MEDS: HYDROcodone/APAP 7.5-325MG 1 EACH TAB PO PRN (03:16)
[2019-09-28 06:20] LABS: Basophils % (A) 0 %; Eosinophils # (A) 0.4 k/uL (0-0.7); Eosinophils % (A) 5 %; HCT 42.6 % (34.0-46.0); HGB 14.2 gm/dL (11.4-16.0); Lymphocytes # (A) 2.7 k/uL (1.0-4.8); Lymphocytes % (A) 41 %; MCH 30.5 pg (25.0-35.0); MCHC 33.3 g/dL (31.0-37.0); MCV 91.8 fL (80.0-100.0); Mean Platelet Volume 7.9; Monocytes # (A) 0.4 k/uL (0-1.0); Monocytes % (A) 7 %; Neutrophils # (A) 2.9 k/uL (1.3-7.7); Neutrophils % (A) 44 %; Platelet Count 332 k/uL (150-450); RBC 4.64 m/uL (3.80-5.40); RDW 14.2 % (11.5-15.5); WBC 6.7 k/uL (3.8-10.6)
[2019-09-28] MEDS: PANTOPRAZOLE 40 MG TABLET PO SCH (06:30)
[2019-09-28 06:39] LABS: African American GFR (CKD) >90 (>60 ml/min/1.73 sqM); Anion Gap 7 mmol/L; Blood Urea Nitrogen 15 mg/dL (7-17); Calcium 8.7 mg/dL (8.4-10.2); Carbon Dioxide 27 mmol/L (22-30); Chloride 100 mmol/L (98-107); Glucose 95 mg/dL (74-99); Non-African American GFR(CKD) >90 (>60 ml/min/1.73 sqM); Potassium 3.8 mmol/L (3.5-5.1); Sodium 134 mmol/L (137-145)
[2019-09-28] MEDS: METOPROLOL TARTRATE 25 MG TAB PO SCH (09:13)
[2019-09-28] MEDS: ASPIRIN 81 MG PO SCH (09:13)
[2019-09-28] MEDS: AZITHROMYCIN 500 MG TAB PO SCH (09:13)
[2019-09-28] MEDS: DIVALPROEX ER 500 MG TAB.ER.24H PO SCH (09:13)
[2019-09-28] MEDS: SYMBICORT 160-4.5 MCG INHALER INHALATION SCH (09:13)
[2019-09-28] MEDS: FUROSEMIDE 10 MG/ML 4 ML VIAL IV SCH (09:13)
[2019-09-28] MEDS: GABAPENTIN 300 MG CAP PO SCH (09:13)
[2019-09-28] MEDS: IPRATROPIUM-ALBUTEROL 3 ML NEB INHALATION SCH ×2 (09:13→12:45)
[2019-09-28] MEDS: TICAGRELOR 60 MG PO SCH (09:13)
[2019-09-28] MEDS: traMADol 50 MG TAB PO PRN (09:20)
[2019-09-28] MEDS: SACUBITRIL/VALSARTAN 24 MG-26 MG TABLET PO SCH (09:20)
[2019-09-28] MEDS: tiZANidine 4 MG TAB PO PRN (09:21)
[2019-09-28 10:23] VITALS: TEMP 97.7
[2019-09-28 11:29] VITALS: BP 111/74; RESP 16
--- NOTE | 2019-09-28 11:46 | P.DS ---
Providers Date of admission: 09/25/19 13:37 Expected date of discharge: 09/28/19 Attending physician: Brenden Rodriguez Consults: 09/25/19 14:05 Consult Physician Routine Consulting Provider: Palmira Rebolledo Consult Reason/Comments: New on CHFjudd wanted consultation Do you want consulting provider notified?: Yes Consult Physician Routine Consulting Provider: John Montoya Consult Reason/Comments: New onset CHF Do you want consulting provider notified?: Yes Primary care physician: Brenden Rodriguez Hospital Course: This is a 43-year-old female with history of chronic intermittent asthma, CAD, MS, CHF, COPD, fibromyalgia, gastroesophageal reflux disease, AICD, anxiety, bipolar, depression, ongoing nicotine dependence, marijuana use presented to the ER with worsening shortness of breath over the last 5 days. Patient had proceeded to clinic, diagnosed with pneumonia, placed on antibiotics, steroids. Denies fevers .Chest x-ray suggestive of CHF with interstitial edema, no extremity edema.BNP 1920. EKG report in normal sinus rhythm, left ventricular hypertrophy, lateral infarct, age undetermined. Troponin negative 1. Afebrile, elevated ABC on admission 16.7, trending down to 10.8. Potassium 3.3, creatinine 0.72. Magnesium 2.1. Vital signs stable, maintaining O2 sats in the 90s on 4 L nasal cannula. Pulmonary and cardiology consulted. 09/27/2019 maintained on Rocephin, azithromycin, nebulized bronchodilators. diuresing well on Lasix IV push with 24-hour I&O reflecting a negative fluid balance. Chest x-ray reports resolving pulmonary edema and volume overload. Denies chest pain, palpitations or shortness of breath. No wheezing. Continues on Entresto as per cardiology, vital signs stable. Ambulating, tolerating exertion well. Denies any lightheadedness, dizziness or focal deficits. 02/10/2020: Patient was doing much better. Fluid balance reflects use of diuretics. She is now on ENTRESTO. Viral symptoms of bronchitis seemed to h ave resolved. Looking cessation was discussed with the patient at length. She understands she continues to smoke her life expectancy will be drastically decreased due to her significant heart history. Discharge diagnosis Acute on chronic CHF, systolic dysfunction, EF 20-25% Acute bronchitis, suspect viral Ischemic cardiomyopathy, history of AICD placement CAD, history of MS, prior stents Ongoing nicotine dependence Chronic bronchitis secondary to the above Hypertension Hyperlipidemia Bipolar Gastroesophageal reflux disease Degenerative disc disease, osteoarthritis Patient Condition at Discharge: Serious Plan - Discharge Summary Discharge Rx Participant: No New Discharge Prescriptions: New Sacubitril/Valsartan [Entresto 24 mg-26 mg Tablet] 1 each PO BID #30 tablet Sacubitril/Valsartan [Entresto 49 mg-51 mg Tablet] 1 each PO BID #60 tablet Acetaminophen Tab [Tylenol] 650 mg PO Q6HR PRN tab PRN Reason: Fever And/ Or Pain hydrOXYzine PAMOATE [Vistaril] 50 mg PO Q6HR PRN #30 cap PRN Reason: Anxiety Continue Aspirin 81 mg PO DAILY #30 chew Omeprazole [PriLOSEC] 40 mg PO DAILY Atorvastatin [Lipitor] 80 mg PO HS Nitroglycerin Sl Tabs [Nitrostat] 0.4 mg SUBLINGUAL Q5M PRN #0 tab PRN Reason: Chest Pain Divalproex ER [Depakote ER] 500 mg PO DAILY Alendronate Sodium 70 mg PO COHEN Ibuprofen [Motrin Ib] 400 mg PO Q8H PRN PRN Reason: Pain Budesonide-Formot 160-4.5 Mcg [Symbicort 160-4.5 Mcg Inhaler] 2 puff INHALATI ON RT-BID tiZANidine [Zanaflex] 4 mg PO TID PRN PRN Reason: Pain Gabapentin [Neurontin] 300 mg PO TID Escitalopram [Lexapro] 10 mg PO DAILY predniSONE See Taper PO DAILY Ciprofloxacin HCl [Cipro] 500 mg PO Q12HR Ticagrelor [Brilinta] 60 mg PO BID HYDROcodone/APAP 7.5-325MG [Rincon 7.5-325] 1 tab PO Q8H PRN PRN Reason: Pain Metoprolol Tartrate [Lopressor] 25 mg PO TID Albuterol Sulfate [Ventolin HFA] 2 puff INHALATION RT-Q6H PRN PRN Reason: Shortness Of Breath Umeclidinium Dairy [Incruse Ellipta] 1 puff INHALATION RT-DAILY Ipratropium-Albuterol Nebulize [Duoneb 0.5 mg-3 mg/3 ml Soln] 3 ml INHALATION RT-Q4H PRN PRN Reason: Shortness Of Breath Discharge Medication List Aspirin 81 mg PO DAILY #30 chew 08/16/16 [Rx] Omeprazole [PriLOSEC] 40 mg PO DAILY 11/29/16 [History] Atorvastatin [Lipitor] 80 mg PO HS 11/30/16 [History] Nitroglycerin Sl Tabs [Nitrostat] 0.4 mg SUBLINGUAL Q5M PRN #0 tab 12/01/16 [Rx] Divalproex ER [Depakote ER] 500 mg PO DAILY 02/06/17 [History] Alendronate Sodium 70 mg PO COHEN 06/29/17 [History] Albuterol Sulfate [Ventolin HFA] 2 puff INHALATION RT-Q6H PRN 09/25/19 [History] Budesonide-Formot 160-4.5 Mcg [Symbicort 160-4.5 Mcg Inhaler] 2 puff INHALATION RT-BID 09/25/19 [History] Ciprofloxacin HCl [Cipro] 500 mg PO Q12HR 09/25/19 [History] Escitalopram [Lexapro] 10 mg PO DAILY 09/25/19 [History] Gabapentin [Neurontin] 300 mg PO TID 09/25/19 [History] HYDROcodone/APAP 7.5-325MG [Rincon 7.5-325] 1 tab PO Q8H PRN 09/25/19 [History] Ibuprofen [Motrin Ib] 400 mg PO Q8H PRN 09/25/19 [History] Ipratropium-Albuterol Nebulize [Duoneb 0.5 mg-3 mg/3 ml Soln] 3 ml INHALATION RT-Q4H PRN 09/25/19 [History] Metoprolol Tartrate [Lopressor] 25 mg PO TID 09/25/19 [History] Ticagrelor [Brilinta] 60 mg PO BID 09/25/19 [History] Umeclidinium Dairy [Incruse Ellipta] 1 puff INHALATION RT-DAILY 09/25/19 [History] predniSONE See Taper PO DAILY 09/25/19 [History] tiZANidine [Zanaflex] 4 mg PO TID PRN 09/25/19 [History] Acetaminophen Tab [Tylenol] 650 mg PO Q6HR PRN tab 09/28/19 [Rx] Sacubitril/Valsartan [Entresto 24 mg-26 mg Tablet] 1 each PO BID #30 tablet 09/28/19 [Rx] Sacubitril/Valsartan [Entresto 49 mg-51 mg Tablet] 1 each PO BID #60 tablet 09/28/19 [Rx] hydrOXYzine PAMOATE [Vistaril] 50 mg PO Q6HR PRN #30 cap 09/28/19 [Rx] Follow up Appointment(s)/Referral(s): Brenden Rodriguez MD [Primary Care Provider] - 1-2 days Jaime Edward MD [STAFF PHYSICIAN] - 1 Week Stella Correia MD [STAFF PHYSICIAN] - 1 Week (Office will call with follow up appointment. ) Patient Instructions/Handouts: Heart Failure (DC), Heart Healthy Diet (DC) Activity/Diet/Wound Care/Special Instructions: CHF 1. Weigh yourself every morning after you urinate. If you gain 2-3 pounds overnight or 5 pounds in one week, call your primary physician for guidance on your medications. Keep a log of your weights. 2. Avoid salt, or foods with hidden salt. Extra salt makes your heart work harder and traps the fluid in your body for longer. 3. Take all of your medications as directed, especially your water pills. NEVER skip a dose. 4. Elevate your legs when you are not up moving around to help with circulation and prevent swelling. 5. Call your physician if you notice any extra swelling in your legs, ankles, feet or abdomen, if you have a new dry cough, if your shortness of breath worsens with activity or at rest, or if you feel more fatigued. Discharge Disposition: HOME SELF-CARE Care Plan Goals (MU): Please slate picker free month of Entresto at [facility]. Following months will cost $47.
--- NOTE | 2019-09-28 12:08 | P.PN ---
Subjective Progress Note Date: 09/28/19 Principal diagnosis: chf This pleasant 43-year-old male patient who follows with Dr. VC Correia in the office. Has a history of severe ischemic cardiomyopathy who presented with dyspnea and acute on chronic systolic congestive heart failure. Echocardiogram showed severely impaired LV systolic function with ejection fraction 20-25% with evidence of moderate mitral and mild tricuspid regurgitation. She's been initiated on Entresto and is tolerating this well. She remains on IV Lasix at this time. Also and he is on aspirin daily, Lipitor daily, and metoprolol titrate 25 mg by mouth 3 times a day. Overall she's feeling well today. She spent up ambulating without difficulties. She did develop some mild lightheadedness following her shower this morning but ot herwise denies any dizziness or lightheadedness. She has no current complaints of edema. No orthopnea or PND. Objective - Vital Signs Vital signs: Vital Signs Temp 97.7 F 09/28/19 11:25 Pulse 78 09/28/19 11:25 Resp 16 09/28/19 11:25 BP 111/74 09/28/19 11:25 Pulse Ox 97 09/28/19 11:25 Intake & Output 09/27/19 09/28/19 09/28/19 18:59 06:59 18:59 Intake Total 240 560 200 Output Total 1600 1999 Balance -1360 -1440 200 Weight 87 kg Intake: Oral 240 560 200 Output: Urine 1600 1999 Other: Voiding Method Toilet # Voids 2 2 1 # Bowel Movements 0 - Exam PHYSICAL EXAMINATION: HEENT: Head is atraumatic, normocephalic. Pupils equal, round. Neck is supple. There is no elevated jugular venous pressure. HEART EXAMINATION: Heart sounds regular, S1 and S2 with a systolic murmur. CHEST EXAMINATION: Lungs are clear to auscultation and precussion. No chest wall tenderness is noted on palpation or with deep breathing. ABDOMEN: Soft, nontender. Bowel sounds are heard. No organomegaly noted. EXTREMITIES: 2+ peripheral pulses with no evidence of peripheral edema and no calf tenderness noted. NEUROLOGIC patient is awake, alert and oriented x3. . - Labs CBC & Chem 7: 09/28/19 05:37 09/28/19 05:37 Labs: Abnormal Lab Results - Last 24 Hours (Table) 09/28/19 Range/Units 05:37 Sodium 134 L (137-145) mmol/L Microbiology - Last 24 Hours (Table) 09/25/19 11:48 Blood Culture - Preliminary Blood No Growth after 48 hours Assessment and Plan Assessment: #1 acute on chronic systolic congestive heart failure #2 severe ischemic cardiomyopathy #3 status post multiple PCI #4 history of ICD implantation #5 hypertension #6 hyperlipidemia Plan: From cardiology perspective we will switch to by mouth Lasix. Continue current dose of Entresto. She will follow-up in the office as an outpatient with Dr. VC Correia. UX DEVELOPER DESIGNER note has been reviewed, I agree with a documented findings and plan of care. Patient was seen and examined.
--- NOTE | 2019-09-28 12:40 | P.PN ---
Subjective Progress Note Date: 09/28/19 On today's evaluation Sahara has made a commitment not to smoke from this point in time. She is being seen in follow-up. She is breathing better. Less short of breath. No congestion. Wheezing and bronchospasm and also improved. No angina. No palpitations. Raises are being made to discharge this patient home today. Objective - Vital Signs Vital signs: Vital Signs Temp 97.7 F 09/28/19 11:25 Pulse 78 09/28/19 11:25 Resp 16 09/28/19 11:25 BP 111/74 09/28/19 11:25 Pulse Ox 97 09/28/19 11:25 Intake & Output 09/27/19 09/28/19 09/28/19 18:59 06:59 18:59 Intake Total 240 560 200 Output Total 1600 2000 Balance -1360 -1440 200 Weight 87 kg Intake: Oral 240 560 200 Output: Urine 1600 2000 Other: Voiding Method Toilet # Voids 2 2 1 # Bowel Movements 0 - Exam GENERAL EXAM: Alert, very pleasant, 43-year-old white female, on room air comfortable in no apparent distress. HEAD: Normocephalic/atraumatic. EYES: Normal reaction of pupils, equal size. Conjunctiva pink, sclera white. NOSE: Clear with pink turbinates. THROAT: No erythema or exudates. NECK: No masses, no JVD, no thyroid enlargement, no adenopathy. CHEST: No chest wall deformity. Symmetrical expansion. LUNGS: Equal air entry with no crackles, wheeze, rhonchi or dullness. CVS: Regular rate and rhythm, normal S1 and S2, no gallops, no murmurs, no rubs ABDOMEN: Soft, nontender. No hepatosplenomegaly, normal bowel sounds, no guarding or rigidity. EXTREMITIES: No clubbing, no edema, no cyanosis, 2+ pulses and upper and lower extremities. MUSCULOSKELETAL: Muscle strength and tone normal. SPINE: No scoliosis or deformity SKIN: No rashes CENTRAL NERVOUS SYSTEM: Alert and oriented -3. No focal deficits, tone is normal in all 4 extremities. PSYCHIATRIC: Alert and oriented -3. Appropriate affect. Intact judgment and insight. - Labs CBC & Chem 7: 09/28/19 05:37 09/28/19 05:37 Labs: Abnormal Lab Results - Last 24 Hours (Table) 09/28/19 Range/Units 05:37 Sodium 134 L (137-145) mmol/L Microbiology - Last 24 Hours (Table) 09/25/19 11:48 Blood Culture - Preliminary Blood No Growth after 48 hours Assessment and Plan Plan: 1 acute bronchitis, could be viral 2 acute CHF exacerbation with evidence of pulmonary edema/interstitial edema on the chest x-ray currently on IV Lasix and Entresto was also added to her regimen 3 coronary artery disease with previous coronary intervention and stenting currently free of any chest pain 4 CHF with ischemic cardiomyopathy and segmental wall motion abnormalities and a previous ejection fraction of 20-25% 5 history of AICD placement 6 chronic bronchitis secondary to smoking. The patient is trying hard to quit smoking. The patient has been maintained on Symbicort and Incruse on outpatient basis. 7 history of previous myocardial infarction 8 osteoarthritis with degenerative lumbar disc disease 9 chronic migraines 10 hypertension 11 hyperlipidemia 12 fibromyalgia 13 acid reflux 14 bipolar Plan Clinically improved. The patient will be discharged home and Incruse, Symbicort and albuterol rescue inhaler on an insulin basis . No smoking and she was counseled in that regard. We also taken oral Lasix and she will follow up with cardiology.
[2019-09-28 12:57] VITALS: PULSE 80
[2019-09-28] MEDS ORDERED: FUROSEMIDE 40 MG TAB PO SCH (16:00)
--- NOTE | 2019-10-01 17:57 | CDI ---
Documentation Clarification Form Date: 10/01/19 From: Tiana King CCS Phone: If you have a question about this query, please contact Lu Garza, Sports Marketing Specialist at [phone] between 8am and 5pm. Admit Date: 09/25/19 Discharge Date: 09/28/19 Patient Name: Sahara Livingston Visit Number: [id number] ATTENTION: The Clinical Documentation Specialists (CDI) and [facility] Coding Staff appreciate your assistance in clarifying documentation. Please respond to the clarification below the line at the bottom and electronically sign. The CDI & [facility] Coding staff will review the response and follow-up if needed. Please note: Queries are made part of the Legal Health Record. If you have any questions, please contact the author of this message via ITS. Dear Dr. Rodriguez, Pneumonia diagnosed in outpatient clinic on 09/23 was documented in ED, PNs, DS. History/Risk Factors: Emphysema, Acute bronchitis, CHF, HTN, CAD Clinical Indicators: SOB, Cough, Congestion WBC: 16.7, 10.8, 12.3 X-ray: Suspect CHF exacerbation as there is cardiomegaly with central [id number] alveolar and interstitial edema and/or infiltrates redemo nstrated.Findings stable or slightly improved from most recent prior. Treatment: Zithromax 500 mg PO daily, Rocephin 1 gm IVPB Q 12HR O2: 2 lpm nasal cannula Breathing Tx: Hand nebulizer In order to capture the severity of condition, please clarify if the condition signifies and you are treating for: Pneumonia, specify causal organism (if known) Viral Pneumonia, specify casual organism (if known) Pneumonia ruled out Healthcare Acquired Pneumonia/Pneumonia, unspecified Other, please specify Unable to determine MTDD
--- NOTE | 2019-10-10 17:45 | CDI ---
Documentation Clarification Form Date: 10/01/19 From: Tiana King CCS Phone: If you have a question about this query, please contact Lu Garza, Globe Changer at [phone] between 8am and 5pm. Admit Date: 09/25/19 Discharge Date: 09/28/19 Patient Name: Sahara Livingston Visit Number: [id number] ATTENTION: The Clinical Documentation Specialists (CDI) and [facility] Coding Staff appreciate your assistance in clarifying documentation. Please respond to the clarification below the line at the bottom and electronically sign. The CDI & [facility] Coding staff will review the response and follow-up if needed. Please note: Queries are made part of the Legal Health Record. If you have any questions, please contact the author of this message via ITS. Dear Dr. Rodriguez, Pneumonia diagnosed in outpatient clinic on 09/23 was documented in ED, PNs, DS. History/Risk Factors: Emphysema, Acute bronchitis, CHF, HTN, CAD Clinical Indicators: SOB, Cough, Congestion WBC: 16.7, 10.8, 12.3 X-ray: Suspect CHF exacerbation as there is cardiomegaly with central [id number]-dpavhfkr alveolar and interstitial edema and/or infiltrates redemo nstrated.Findings stable or slightly improved from most recent prior. Treatment: Zithromax 500 mg PO daily, Rocephin 1 gm IVPB Q 12HR O2: 2 lpm nasal cannula Breathing Tx: Hand nebulizer In order to capture the severity of condition, please clarify if the condition signifies and you are treating for: Pneumonia, specify causal organism (if known) Viral Pneumonia, specify casual organism (if known) Pneumonia ruled out Healthcare Acquired Pneumonia/Pneumonia, unspecified Other, please specify Unable to determine Pneumonia ruled out. RS 10/10/19 [facility]
== END 2019-09-28 14:25 | disposition home or self-care (01) | DRG 293 ==
LOC: EC 11:05 → 3SCARD 13:37
PROVIDERS: ADMIT Family Medicine; ATTEND Family Medicine
DX: I11.0 Hypertensive heart disease with heart failure (principal); I50.23 Acute on chronic systolic (congestive) heart failure; M79.7 Fibromyalgia; M19.90 Unspecified osteoarthritis, unspecified site; K21.9 Gastro-esophageal reflux disease without esophagitis; I25.10 Atherosclerotic heart disease of native coronary artery without angina pectoris; E78.5 Hyperlipidemia, unspecified; M51.36 Other intervertebral disc degeneration, lumbar region; M47.816 Spondylosis without myelopathy or radiculopathy, lumbar region; G43.909 Migraine, unspecified, not intractable, without status migrainosus; F31.9 Bipolar disorder, unspecified; F41.9 Anxiety disorder, unspecified; F17.210 Nicotine dependence, cigarettes, uncomplicated; J45.20 Mild intermittent asthma, uncomplicated; I25.5 Ischemic cardiomyopathy; M81.0 Age-related osteoporosis without current pathological fracture; J43.9 Emphysema, unspecified; J20.8 Acute bronchitis due to other specified organisms; E66.9 Obesity, unspecified; I08.1 Rheumatic disorders of both mitral and tricuspid valves; I25.2 Old myocardial infarction; Z68.35 Body mass index [BMI] 35.0-35.9, adult; Z71.6 Tobacco abuse counseling; Z71.3 Dietary counseling and surveillance; Z79.899 Other long term (current) drug therapy; Z79.51 Long term (current) use of inhaled steroids; Z79.02 Long term (current) use of antithrombotics/antiplatelets; Z79.82 Long term (current) use of aspirin; Z95.5 Presence of coronary angioplasty implant and graft; Z87.01 Personal history of pneumonia (recurrent); Z87.442 Personal history of urinary calculi; Z95.810 Presence of automatic (implantable) cardiac defibrillator; Z87.448 Personal history of other diseases of urinary system; Z88.1 Allergy status to other antibiotic agents; Z82.49 Family history of ischemic heart disease and other diseases of the circulatory system; Z82.3 Family history of stroke; Z82.69 Family history of other diseases of the musculoskeletal system and connective tissue; Z83.438 Family history of other disorder of lipoprotein metabolism and other lipidemia; Z80.8 Family history of malignant neoplasm of other organs or systems
CPT/HCPCS: 36415; 71045; 71046; 80048; 80053; 83605; 83735; 83880; 84484; 85025; 85027; 85379; 85610; 85730; 87040; 93005; 93306; 94640; 94760; 96365; 96375; 99285

== ENCOUNTER 2019-11-21 06:10 | Day surgery (SDC) | payer MEDICARE ==
[2019-11-19 13:28] VITALS: BMI 36.2
[2019-11-21] MEDS ORDERED: ALPRAZolam 0.25 MG TAB PO PRN (06:18)
[2019-11-21] MEDS ORDERED: ALPRAZolam 0.5 MG TAB PO PRN (06:18)
[2019-11-21] MEDS ORDERED: NITROGLYCERIN SL TABS 0.4 MG TAB SUBLINGUAL PRN (06:18)
[2019-11-21] MEDS ORDERED: SODIUM CHLORIDE 0.9% 1,000 ML in EMPTY BAG 1 BAG IV ONE (06:18)
[2019-11-21 06:52] VITALS: RESP 16; TEMP 97.6
[2019-11-21] MEDS ORDERED: ASPIRIN 325 MG TAB PO ONE (07:00)
[2019-11-21] MEDS ORDERED: ATORVASTATIN 80 MG TAB PO ONE (07:00)
[2019-11-21 07:23] LABS: Basophils # (A) 0.1 k/uL (0-0.2); Basophils % (A) 1 %; Eosinophils # (A) 0.5 k/uL (0-0.7); Eosinophils % (A) 6 %; HCT 38.7 % (34.0-46.0); HGB 12.6 gm/dL (11.4-16.0); Lymphocytes # (A) 3.3 k/uL (1.0-4.8); Lymphocytes % (A) 41 %; MCH 30.7 pg (25.0-35.0); MCHC 32.7 g/dL (31.0-37.0); MCV 93.9 fL (80.0-100.0); Mean Platelet Volume 7.8; Monocytes # (A) 0.5 k/uL (0-1.0); Monocytes % (A) 7 %; Neutrophils # (A) 3.5 k/uL (1.3-7.7); Neutrophils % (A) 44 %; Platelet Count 221 k/uL (150-450); RBC 4.12 m/uL (3.80-5.40); RDW 15.1 % (11.5-15.5); WBC 8.1 k/uL (3.8-10.6)
[2019-11-21 07:31] LABS: Calcium 8.8 mg/dL (8.4-10.2)
[2019-11-21 07:42] LABS: Potassium 4.7 mmol/L (3.5-5.1)
[2019-11-21] MEDS ORDERED: LIDOCAINE 1% INJ 10MG/ML (20 ML MDV) ONE (07:43)
[2019-11-21] MEDS ORDERED: VERAPAMIL 2.5 MG/ML 2 ML AMP ONE (07:43)
[2019-11-21] MEDS ORDERED: MIDAZOLAM 2 MG/2 ML VIAL IV ONE (07:50)
[2019-11-21] MEDS ORDERED: LIDOCAINE 1% INJ 10MG/ML (20 ML MDV) SQ ONE (08:05)
[2019-11-21] MEDS ORDERED: HEPARIN SODIUM 1,000 UN/ML (10ML VL) ONE (08:07)
[2019-11-21] MEDS: VERAPAMIL SYRINGE (5 MG/10 ML) INTRAARTER ONE ×2 (08:07→08:29)
[2019-11-21] MEDS ORDERED: HEPARIN SODIUM 1,000 UN/ML (10ML VL) IV ONE (08:09)
[2019-11-21] MEDS ORDERED: IOPAMIDOL-370 125ML BTL INJ ONE (08:30)
[2019-11-21] MEDS ORDERED: RX INFO: IV CONTRAST WAS GIVEN 1 EACH MISC MISCELLANE PRN (08:33)
--- NOTE | 2019-11-21 08:41 | P.PCN ---
Date of Procedure: 11/21/19 Operative Findings: CARDIAC CATHETERIZATION PERFORMING PHYSICIAN: John Montoya MD, RPVI PROCEDURE PERFORMED: 1. Selective right and left coronary angiogram 2. Left heart catheterization INDICATION: This is a very pleasant 44-year-old female patient with coronary artery disease and prior triple-vessel stenting as well as ischemic cardiomyopathy and status post AICD who was experiencing symptoms of chest discomfort and shortness of breath with exertion concerning for severe underlying coronary artery disease. COMPLICATION: None APPROACH: Right radial artery LEVEL OF SEDATION: Moderate sedation length of 26 minutes PROCEDURE DESCRIPTION: After obtaining an informed consent, the patient was brought to cardiac laborer chicken farm. Local anesthesia was performed using lidocaine subcutaneously. The right radial artery was cannulated using Seldinger technique, the guidewire passed easily, following that we advanced a 5-Swedish sheath dilator assembly, the wire and dilator were removed and sheath was flushed. Following that, 2 mg of verapamil along with [id number] unit heparin were given. Selective right and left coronary angiogram using a 6-Swedish JR4 and JL 3.5 catheters. Following that we did left heart catheterization using 6-Swedish pigtail catheter. The procedure was completed there was no complication. SELECTIVE CORONARY ANGIOGRAM: The right coronary artery: Is a large caliber vessel and a dominant vessel. The proximal RCA appeared to be angiographically normal. The mid RCA is a stented on long segment and there is intermediate in-stent restenosis in the midportion. The RCA distally is a stented as well as and bifurcates into PDA and PLV branches. The PDA branch appears to have mild to moderate diffuse disease. The PLV branch appears to be angiographically normal. Left main: Is angiographically normal. Bifurcates into CX, ramus intermedius, and left anterior descending artery The left circumflex: Is a large caliber vessel and nondominant vessel. The very proximal LCx has a de florentino lesion appeared to be fairly calcified and in the range of 70-80%. The LCx at this point gives rises into the first obtuse marginal branch which appears to be angiographically normal. The mid LCx appeared to be angiographically normal. The LCx distally appears to be normal and gives rises into a second OM branch which seems to be normal. The ramus intermedius: Is a large caliber vessel and appeared to have mild disease only. The left anterior descending artery: Is a large caliber vessel. The proximal LAD stented and the stent is patent. The mid LAD appears to have mild disease only. Bifurcates here in to the first diagonal branch which appeared to be stented with intermediate in-stent restenosis. The LAD after that appeared to be angiographically normal. HEMODYNAMICS: The LVEDP was 16-18 mmHg. CONCLUSION: 1. Intermediate in-stent restenosis involving the mid RCA 2. 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 Patent stents in the left anterior descending artery POSTPROCEDURE MANAGEMENT: PCI of the LCx to be done with adjunctive use of atherectomy
[2019-11-21] MEDS ORDERED: SODIUM CHLORIDE 0.9% 1,000 ML IV SCH (08:45)
[2019-11-21 14:21] VITALS: BP 83/55; PULSE 62
== END 2019-11-21 13:34 | disposition home or self-care (01) ==
LOC: CATHCVL 06:10
PROVIDERS: ATTEND Internal Medicine Interventional Cardiology
DX: T82.855A Stenosis of coronary artery stent, initial encounter (principal); I25.110 Atherosclerotic heart disease of native coronary artery with unstable angina pectoris; I25.5 Ischemic cardiomyopathy; I25.2 Old myocardial infarction; I10 Essential (primary) hypertension; E78.2 Mixed hyperlipidemia; F31.9 Bipolar disorder, unspecified; F17.210 Nicotine dependence, cigarettes, uncomplicated; Z79.82 Long term (current) use of aspirin; Z79.51 Long term (current) use of inhaled steroids; Z79.899 Other long term (current) drug therapy; Z88.1 Allergy status to other antibiotic agents; Z95.810 Presence of automatic (implantable) cardiac defibrillator
CPT/HCPCS: 93458; 80048; 85025; 87635; C1769; C1894; J2250; J2001; J1644; Q9967

== ENCOUNTER → 2019-11-27 | Outpatient (CLI) | payer MEDICARE | END | disposition home or self-care (01) | LOC: LABWHC1 11:13 | PROVIDERS: ATTEND Internal Medicine Interventional Cardiology | DX: U07.1 COVID-19 (principal) | CPT/HCPCS: 87635 ==

== ENCOUNTER 2019-11-29 06:36 | Day surgery (SDC) | payer MEDICARE ==
[2019-11-27 11:20] VITALS: BMI 37.5
[~2019-11-29 06:36] MED LIST changes: +HYDROmorphone 0.5 MG/0.5 ML SYRINGE IVP STA; +hydrALAZINE HCL 20 MG/ML 1 ML VIAL IVP STA
[2019-11-29] MEDS ORDERED: HYDROcodone/APAP 7.5-325MG 1 EACH TAB ONE (06:51)
[2019-11-29] MEDS: fentaNYL (PF) 50 MCG/ML 2 ML AMP IV ONE ×2 (07:50→08:04)
[2019-11-29] MEDS ORDERED: MIDAZOLAM 2 MG/2 ML VIAL IV ONE (07:50)
[2019-11-29] MEDS ORDERED: LIDOCAINE 1% INJ 10MG/ML (20 ML MDV) IV ONE (07:56)
[2019-11-29] MEDS ORDERED: HYDROmorphone 1 MG/ML 1 ML SYRINGE IVP ONE (07:57)
[2019-11-29] MEDS ORDERED: BIVALIRUDIN BOLUS 250 MG/50 ML IV ONE (08:02)
[2019-11-29] MEDS ORDERED: SODIUM CHLORIDE 0.9% IV ONE (08:03)
[2019-11-29] MEDS ORDERED: BIVALIRUDIN IV ONE (08:03)
[2019-11-29] MEDS ORDERED: NITROGLYCERIN 1000MCG/10ML SYRINGE INTRACORON ONE (08:20)
[2019-11-29] MEDS ORDERED: IOPAMIDOL-370 125ML BTL INJ ONE (08:48)
[2019-11-29] MEDS ORDERED: ALBUTEROL HFA INHALER INHALATION PRN (08:49)
[2019-11-29] MEDS ORDERED: NITROGLYCERIN SL TABS 0.4 MG TAB SUBLINGUAL PRN ×2 (08:49→08:51)
[2019-11-29] MEDS ORDERED: ATROPINE SULFATE 0.1 MG/ML 10ML SYRINGE IV PRN (08:51)
[2019-11-29] MEDS ORDERED: RX INFO: IV CONTRAST WAS GIVEN 1 EACH MISC MISCELLANE PRN (08:51)
[2019-11-29] MEDS ORDERED: ZOLPIDEM 5 MG TAB PO PRN (08:51)
[2019-11-29] MEDS ORDERED: MAG HYDROX/AL HYDROX/SIMETH 30 ML CUP PO PRN (08:51)
[2019-11-29] MEDS ORDERED: SODIUM CHLORIDE 0.9% 1,000 ML IV SCH (09:00)
[2019-11-29] MEDS ORDERED: NON FORMULARY DRUG (Vitamin B Complex [Vitamin B Complex] 1 EACH) PO SCH (09:00)
--- NOTE | 2019-11-29 09:02 | P.PCN ---
Date of Procedure: 11/29/19 Operative Findings: PERCUTANEOUS CORONARY INTERVENTION Performing physician: John Montoya MD, RPVI Procedure performed: 1. An atherectomy of the left circumflex using the Diamondback atherectomy device 2. Successful stenting of the proximal LCx using 3.0 x 18 mm Xience DUNCAN with an excellent angiographic results Indication: This is a 44-year-old female patient with coronary artery disease and prior a ngioplasty and stenting multiple times was experiencing symptoms of chest discomfort with exertion concerning for severe coronary artery disease. She underwent heart catheterization few weeks ago and that revealed severe calcified lesion involving the proximal left circumflex just proximal to previously stent. The decision was undergo an atherectomy and stenting of the LCx Approach: Right common femoral artery Complication: None Level of sedation: Moderate with a sedation at length of 47 minutes Procedure description: After obtaining an informed consent the patient was brought to the cardiac laborer beam house. The right common femoral artery was cannulated using micropuncture technique, the micropuncture wire passed easily then I placed 6-Canadian sheath in the right common femoral artery. Please note that I predilated the right common femoral artery using 5-Canadian dilator and 7-Canadian dilator before I placed a 6-Canadian sheath just because the patient did undergo multiple heart catheterization from the right groin and she does have an extensive painful scar. At that point I did start anticoagulation was Angiomax was bolused and drip. The left main was engaged using an XB 35 LAD guide. I did wire the left circumflex using the Viber wire. Subsequently I did atherectomy of the proximal LCx using the Diamondback orbital atherectomy device where I did two runs and her low speed and each run for 25 seconds. Subsequently I did balloon angioplasty using 2.5 x 12 mm balloon which was inflated under 16 zelda for 20 seconds. Attempting advancing 3.0 x 18 mm Xience DUNCAN over the Viber wire was unsuccessful. At that point I did wire the LCx using a Whisper wire. I attempted again advancing the stent over the Viber wire and that was unsuccessful but it was successful advancing the stent over the whisper wire. The stent was positioned under fluoroscopy guidance and deployed under 18 zelda for 20 seconds after the sadi wire was pulled out. I postdilated the stent using 3.25 x 8 mm NC balloon which was inflated under 20 zelda for 20 seconds. the final angiogram showed excellent angiographic results and the procedure was completed without any complication Postprocedure management: 1. Dual antiplatelet therapy 2. Risk factors modifications 3. Follow-up with the patient
[2019-11-29] MEDS: ASPIRIN 81 MG PO SCH (12:03)
[2019-11-29] MEDS: METOPROLOL TARTRATE 25 MG TAB PO SCH ×3 (12:04→19:44)
[2019-11-29] MEDS: ISOSORBIDE MONONITRATE ER 30 MG TAB.ER.24H PO SCH (12:04)
[2019-11-29] MEDS: NON FORMULARY DRUG (Ticagrelor [Brilinta] 60 MG) PO SCH ×2 (12:26→19:55)
[2019-11-29] MEDS: SPIRONOLACTONE 25 MG TAB PO SCH (12:26)
[2019-11-29] MEDS: hydrOXYzine PAMOATE 25 MG CAP PO PRN (12:30)
[2019-11-29] MEDS: DIVALPROEX ER 500 MG TAB.ER.24H PO SCH (12:30)
[2019-11-29] MEDS: SACUBITRIL/VALSARTAN 24 MG-26 MG TABLET PO SCH ×2 (12:31→19:43)
[2019-11-29] MEDS: PANTOPRAZOLE 40 MG TABLET PO SCH (12:31)
[2019-11-29] MEDS: HYDROcodone/APAP 7.5-325MG 1 EACH TAB PO PRN ×2 (15:17→22:38)
[2019-11-29 16:03] VITALS: RESP 16
[2019-11-29] MEDS: FUROSEMIDE 20 MG TAB PO SCH (17:14)
[2019-11-29] MEDS: GABAPENTIN 300 MG CAP PO SCH ×2 (17:20→22:38)
[2019-11-29] MEDS: tiZANidine 4 MG TAB PO PRN (19:41)
[2019-11-29] MEDS: Ticagrelor [Brilinta] 60 MG Tablet PO SCH (19:56)
[2019-11-29] MEDS: SYMBICORT 160-4.5 MCG INHALER INHALATION SCH (20:03)
[2019-11-29] MEDS ORDERED: ACETAMINOPHEN TAB 500 MG TAB PO PRN (20:03)
[2019-11-29] MEDS ORDERED: ATORVASTATIN 80 MG TAB PO SCH (21:00)
[2019-11-30] MEDS: hydrOXYzine PAMOATE 25 MG CAP PO PRN (00:15)
[2019-11-30 07:40] LABS: Basophils % (A) 1 %; Eosinophils # (A) 0.3 k/uL (0-0.7); Eosinophils % (A) 5 %; HCT 44.8 % (34.0-46.0); HGB 14.2 gm/dL (11.4-16.0); Lymphocytes # (A) 3.1 k/uL (1.0-4.8); Lymphocytes % (A) 52 %; MCH 30.2 pg (25.0-35.0); MCHC 31.7 g/dL (31.0-37.0); MCV 95.3 fL (80.0-100.0); Mean Platelet Volume 7.7; Monocytes # (A) 0.3 k/uL (0-1.0); Monocytes % (A) 6 %; Neutrophils % (A) 34 %; Platelet Count 275 k/uL (150-450); WBC 5.9 k/uL (3.8-10.6)
[2019-11-30] MEDS: SYMBICORT 160-4.5 MCG INHALER INHALATION SCH (07:50)
[2019-11-30 07:54] VITALS: BP 117/62; PULSE 69; TEMP 97.4
[2019-11-30 07:54] LABS: African American GFR (CKD) >90 (>60 ml/min/1.73 sqM); Anion Gap 7 mmol/L; Blood Urea Nitrogen 14 mg/dL (7-17); Carbon Dioxide 23 mmol/L (22-30); Chloride 110 mmol/L (98-107); Glucose 93 mg/dL (74-99); Non-African American GFR(CKD) >90 (>60 ml/min/1.73 sqM); Potassium 4.4 mmol/L (3.5-5.1); Sodium 140 mmol/L (137-145)
[2019-11-30] MEDS: PANTOPRAZOLE 40 MG TABLET PO SCH (07:55)
[2019-11-30] MEDS: HYDROcodone/APAP 7.5-325MG 1 EACH TAB PO PRN (07:55)
[2019-11-30] MEDS: GABAPENTIN 300 MG CAP PO SCH (07:55)
[2019-11-30] MEDS: ASPIRIN 81 MG PO SCH (07:55)
[2019-11-30] MEDS: SPIRONOLACTONE 25 MG TAB PO SCH (07:55)
[2019-11-30] MEDS: DIVALPROEX ER 500 MG TAB.ER.24H PO SCH (07:55)
[2019-11-30] MEDS: Ticagrelor [Brilinta] 60 MG Tablet PO SCH (07:56)
[2019-11-30] MEDS: METOPROLOL TARTRATE 25 MG TAB PO SCH (07:56)
[2019-11-30] MEDS: FUROSEMIDE 20 MG TAB PO SCH (07:56)
[2019-11-30] MEDS: SACUBITRIL/VALSARTAN 24 MG-26 MG TABLET PO SCH (07:56)
[2019-11-30] MEDS: ISOSORBIDE MONONITRATE ER 30 MG TAB.ER.24H PO SCH (07:56)
[2019-11-30] MEDS ORDERED: IPRATROPIUM 0.5 MG/2.5 ML NEBU INHALATION SCH (08:00)
[2019-11-30] MEDS: tiZANidine 4 MG TAB PO PRN (08:01)
--- NOTE | 2019-11-30 08:42 | P.DS ---
Providers Date of admission: November 282019 Attending physician: John Montoya Consults: 11/29/19 08:51 Consult Physician Routine Consulting Provider: [facility] Consult Reason/Comments: Post Interventional patient Do you want consulting provider notified?: Already Contacted Primary care physician: Brenden Rodriguez [facility] Course: This is a 44-year-old female patient who underwent yesterday successful atherectomy and stenting of the left circumflex with an excellent angiographic results and reduction of stenosis from 80% to 0%. The procedure was performed from the right groin which is soft and nontender and without any discrete hematoma or bruises. She is going to be discharged on dual antiplatelet therapy and I'll follow-up with the patient next week in the office Plan - Discharge Summary Discharge Rx Participant: Yes New Discharge Prescriptions: Continue Aspirin 81 mg PO DAILY #30 chew Omeprazole [PriLOSEC] 40 mg PO DAILY Atorvastatin [Lipitor] 80 mg PO HS Nitroglycerin Sl Tabs [Nitrostat] 0.4 mg SUBLINGUAL Q5M PRN #0 tab PRN Reason: Chest Pain Divalproex ER [Depakote ER] 1,000 mg PO DAILY Alendronate Sodium 70 mg PO COHEN Budesonide-Formot 160-4.5 Mcg [Symbicort 160-4.5 Mcg Inhaler] 2 puff INHALATION RT-BID tiZANidine [Zanaflex] 4 mg PO TID PRN PRN Reason: Pain Gabapentin [Neurontin] 300 mg PO Q8HR Escitalopram [Lexapro] 10 - 20 dose PO HS Ticagrelor [Brilinta] 60 mg PO BID HYDROcodone/APAP 7.5-325MG [[place] 7.5-325] 1 tab PO TID PRN PRN Reason: Pain Metoprolol Tartrate [Lopressor] 25 mg PO TID Albuterol Sulfate [Ventolin HFA] 2 puff INHALATION RT-Q6H PRN PRN Reason: Shortness Of Breath Umeclidinium [place] [Incruse Ellipta] 1 puff INHALATION RT-DAILY Sacubitril/Valsartan [Entresto 24 mg-26 mg Tablet] 1 each PO BID #30 tablet hydrOXYzine PAMOATE [Vistaril] 50 mg PO Q6HR PRN #30 cap PRN Reason: Anxiety Spironolactone [Aldactone] 25 mg PO DAILY Isosorbide Mononitrate [Isosorbide Mononitrate ER] 30 mg PO DAILY Vitamin B Complex 1 each PO DAILY Furosemide [Lasix] 20 mg PO DAILY Discharge Medication List Aspirin 81 mg PO DAILY #30 chew 08/16/16 [Rx] Omeprazole [PriLOSEC] 40 mg PO DAILY 11/29/16 [History] Atorvastatin [Lipitor] 80 mg PO HS 11/30/16 [History] Nitroglycerin Sl Tabs [Nitrostat] 0.4 mg SUBLINGUAL Q5M PRN #0 tab 12/01/16 [Rx] Divalproex ER [Depakote ER] 1,000 mg PO DAILY 02/06/17 [History] Alendronate Sodium 70 mg PO COHEN 06/29/17 [History] Albuterol Sulfate [Ventolin HFA] 2 puff INHALATION RT-Q6H PRN 09/25/19 [History] Budesonide-Formot 160-4.5 Mcg [Symbicort 160-4.5 Mcg Inhaler] 2 puff INHALATION RT-BID 09/25/19 [History] Escitalopram [Lexapro] 10 - 20 dose PO HS 09/25/19 [History] Gabapentin [Neurontin] 300 mg PO Q8HR 09/25/19 [History] HYDROcodone/APAP 7.5-325MG [[place] 7.5-325] 1 tab PO TID PRN 09/25/19 [History] Metoprolol Tartrate [Lopressor] 25 mg PO TID 09/25/19 [History] Ticagrelor [Brilinta] 60 mg PO BID 09/25/19 [History] Umeclidinium [place] [Incruse Ellipta] 1 puff INHALATION RT-DAILY 09/25/19 [History] tiZANidine [Zanaflex] 4 mg PO TID PRN 09/25/19 [History] Sacubitril/Valsartan [Entresto 24 mg-26 mg Tablet] 1 each PO BID #30 tablet 09/28/19 [Rx] hydrOXYzine PAMOATE [Vistaril] 50 mg PO Q6HR PRN #30 cap 09/28/19 [Rx] Isosorbide Mononitrate [Isosorbide Mononitrate ER] 30 mg PO DAILY 04/28/20 [History] Spironolactone [Aldactone] 25 mg PO DAILY 11/19/19 [History] Vitamin B Complex 1 each PO DAILY 11/19/19 [History] Furosemide [Lasix] 20 mg PO DAILY 11/27/19 [History] Follow up Appointment(s)/Referral(s): John Montoya MD [STAFF PHYSICIAN] - 1 Week Patient Instructions/Handouts: *[facility] - After Heart Catheterization - Mac Operator Instructions
[2019-12-01] MEDS ORDERED: NON FORMULARY DRUG (Alendronate Sodium [Alendronate Sodium] 70 MG) PO SCH (08:49)
== END 2019-11-30 10:14 | disposition home or self-care (01) ==
LOC: CATHCVL 06:36 → 3SCARD 09:27 → CATHCVL 11-30 10:14
PROVIDERS: ATTEND Internal Medicine Interventional Cardiology
DX: I25.10 Atherosclerotic heart disease of native coronary artery without angina pectoris (principal); I10 Essential (primary) hypertension; I25.2 Old myocardial infarction; E78.2 Mixed hyperlipidemia; F17.210 Nicotine dependence, cigarettes, uncomplicated; Z88.1 Allergy status to other antibiotic agents; Z79.82 Long term (current) use of aspirin; Z79.51 Long term (current) use of inhaled steroids; Z79.899 Other long term (current) drug therapy
CPT/HCPCS: 94640 ×3; 80048; 85025; C9602; C1769 ×4; C1725 ×2; C1887; C1894; C1714; C1874; J2250; J2001; J3010; J1170; J0583; Q9967

== ENCOUNTER → 2019-12-25 | Outpatient (CLI) | payer MEDICARE ==
--- NOTE | 2019-12-25 15:11 | XR ---
EXAMINATION TYPE: XR shoulder complete LT DATE OF EXAM: 12/25/2019 CLINICAL HISTORY: Pain for one week. TECHNIQUE: Three views of the left shoulder are obtained. COMPARISON: None. FINDINGS: There is no acute fracture/dislocation evident in the left shoulder. Mild to moderate narr owing alignment with inferior spurring acromioclavicular joint. The distal acromion morphology mainta ined. Glenohumeral joint is preserved. The visualized ribs are intact and unremarkable. Overlying sin gle lead pacemaker device partially imaged. IMPRESSION: As above.
== END | disposition home or self-care (01) ==
LOC: RADXRMAIN 14:47
PROVIDERS: ATTEND Family Medicine
DX: M77.9 Enthesopathy, unspecified (principal)

== ENCOUNTER 2020-01-18 23:42 | Inpatient (IN) | payer MEDICARE ==
[2020-01-19] MEDS ORDERED: SODIUM CHLORIDE 0.9% 1,000 ML IV STA (00:24)
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
[2020-01-19 00:49] LABS: Albumin 3.9 g/dL (3.5-5.0); Calcium 9.5 mg/dL (8.4-10.2); Magnesium 1.8 mg/dL (1.6-2.3); Total Bilirubin 0.6 mg/dL (0.2-1.3); Total Protein 7.1 g/dL (6.3-8.2)
[2020-01-19 00:52] LABS: Basophils # (A) 0.1 k/uL (0-0.2); Basophils % (A) 1 %; Eosinophils # (A) 0.2 k/uL (0-0.7); Eosinophils % (A) 2 %; HCT 40.1 % (34.0-46.0); HGB 13.2 gm/dL (11.4-16.0); Lymphocytes # (A) 2.3 k/uL (1.0-4.8); Lymphocytes % (A) 24 %; MCHC 32.9 g/dL (31.0-37.0); MCV 91.2 fL (80.0-100.0); Mean Platelet Volume 7.5; Monocytes # (A) 0.5 k/uL (0-1.0); Monocytes % (A) 5 %; Neutrophils # (A) 6.3 k/uL (1.3-7.7); Neutrophils % (A) 67 %; Platelet Count 350 k/uL (150-450); RBC 4.39 m/uL (3.80-5.40); RDW 14.9 % (11.5-15.5); WBC 9.4 k/uL (3.8-10.6)
[2020-01-19 00:57] LABS: Partial Thromboplastin Time 25.4 sec (22.0-30.0); Prothrombin Time 10.3 sec (9.0-12.0)
--- NOTE | 2020-01-19 01:04 | XR ---
EXAMINATION TYPE: XR chest 2V DATE OF EXAM: 01/19/2020 COMPARISON: 09/27/2019 HISTORY: Syncope TECHNIQUE: FINDINGS: Heart and mediastinum are normal. Lungs are clear. Diaphragm is normal. Bony thorax appears normal. There is left axillary pacemaker. IMPRESSION: No active cardiopulmonary disease. Normal heart. No adverse change.
[2020-01-19 01:06] LABS: Potassium 3.7 mmol/L (3.5-5.1)
--- NOTE | 2020-01-19 01:06 | XR ---
EXAMINATION TYPE: XR hand complete LT DATE OF EXAM: 01/19/2020 COMPARISON: NONE HISTORY: Pain injury. TECHNIQUE: 3 views FINDINGS: There are wire sutures apparently fixing old fractures of the proximal fourth and fifth met acarpals. I see no acute fracture nor dislocation. Carpal bones are intact. Distal radius and ulna ap pear intact. Joint spaces are fairly normal. IMPRESSION: No acute abnormality of the left hand.
--- NOTE | 2020-01-19 01:18 | CT ---
EXAMINATION TYPE: CT brain cspine wo con DATE OF EXAM: 01/19/2020 COMPARISON: CT cervical spine 05/15/2018. CT brain 12/18/2009. HISTORY: syncope Headache. Neck pain. CT DLP: 1716 mGycm Automated exposure control for dose reduction was used. Multiple axial sections were obtained of the cervical spine from the skull base to T1 vertebra withou t contrast. Multiple axial sections were obtained of the brain without contrast. FINDINGS: Ventricles and sulci appear normal. There is no mass effect nor midline shift. There is no sign of in tracranial hemorrhage. The calvarium is intact. Temporal bones appear normal. Skull base is intact. Cervical vertebra have normal spacing and alignment. Posterior elements are intact. Facet joints appe ar normal. The skull base is intact. I see no bony destructive process. IMPRESSION: Negative CT scan cervical spine. Negative CT scan of the brain.
[2020-01-19] MEDS ORDERED: KETOROLAC 30 MG/ML 1 ML VIAL IVP STA (01:22)
[2020-01-19 01:31] LABS: Appearance,Urine Clear (Clear); Bilirubin,Urine Negative (Negative); Blood,Urine Negative (Negative); Color,Urine Yellow; Glucose,Urine (UA) Negative (Negative); Ketones,Urine Negative (Negative); Leukocyte Esterase,Urine Negative (Negative); Nitrite,Urine Negative (Negative); PH, Urine 5.5 (5.0-8.0); Protein,Urine Negative (Negative); Specific Gravity,Urine 1.005 (1.001-1.035); Urobilinogen,Urine <2.0 mg/dL (<2.0)
[2020-01-19] MEDS ORDERED: ONDANSETRON 4 MG/2 ML VIAL IVP PRN (01:58)
[2020-01-19] MEDS ORDERED: NALOXONE 0.4 MG/ML 1 ML VIAL IV PRN (01:58)
[2020-01-19] MEDS: SODIUM CHLORIDE 0.9% 1,000 ML IV SCH ×2 (02:44→20:34)
[2020-01-19] MEDS: MORPHINE SULFATE 4 MG/ML SYRINGE IV PRN ×2 (04:00→20:17)
[2020-01-19] MEDS ORDERED: hydrOXYzine PAMOATE 25 MG CAP PO PRN (08:35)
[2020-01-19] MEDS ORDERED: NITROGLYCERIN SL TABS 0.4 MG TAB SUBLINGUAL PRN (08:35)
[2020-01-19] MEDS ORDERED: NON FORMULARY DRUG (Alendronate Sodium [Alendronate Sodium] 70 MG) PO SCH (08:45)
[2020-01-19] MEDS: KETOROLAC 30 MG/ML 1 ML VIAL IVP PRN ×3 (08:47→22:06)
[2020-01-19] MEDS ORDERED: NON FORMULARY DRUG (Vitamin B Complex [Vitamin B Complex] 1 EACH) PO SCH (09:00)
[2020-01-19] MEDS ORDERED: Ticagrelor [Brilinta] 60 MG PO SCH (09:00)
[2020-01-19] MEDS: METOPROLOL TARTRATE 25 MG TAB PO SCH ×3 (10:12→22:06)
[2020-01-19] MEDS: GABAPENTIN 300 MG CAP PO SCH ×3 (10:12→23:21)
[2020-01-19] MEDS: ASPIRIN 81 MG PO SCH (10:13)
[2020-01-19] MEDS: FUROSEMIDE 40 MG TAB PO SCH ×2 (10:13→16:45)
[2020-01-19] MEDS: DIVALPROEX ER 500 MG TAB.ER.24H PO SCH (10:13)
[2020-01-19] MEDS: PANTOPRAZOLE 40 MG TABLET PO SCH (10:14)
[2020-01-19] MEDS: TICAGRELOR 90 MG TAB PO SCH ×2 (10:14→20:31)
[2020-01-19] MEDS: SPIRONOLACTONE 25 MG TAB PO SCH ×2 (10:14→20:31)
[2020-01-19] MEDS: ISOSORBIDE MONONITRATE ER 30 MG TAB.ER.24H PO SCH (10:14)
[2020-01-19] MEDS: SACUBITRIL/VALSARTAN 24 MG-26 MG TABLET PO SCH ×2 (10:30→20:31)
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
[2020-01-19] MEDS: ALBUTEROL NEBULIZED 2.5 MG/3 ML INHALATION PRN (16:36)
[2020-01-19] MEDS: IPRATROPIUM 0.5 MG/2.5 ML NEBU INHALATION SCH ×2 (16:36→21:54)
[2020-01-19] MEDS: HYDROcodone/APAP 5-325MG 1 EACH TAB PO PRN (16:54)
[2020-01-19] MEDS: ESCITALOPRAM 10 MG TAB PO SCH (20:31)
[2020-01-19] MEDS: tiZANidine 4 MG TAB PO PRN (20:31)
[2020-01-19] MEDS: ATORVASTATIN 80 MG TAB PO SCH (20:31)
[2020-01-19] MEDS ORDERED: TICAGRELOR 90 MG PO SCH (21:00)
[2020-01-19] MEDS: SYMBICORT 160-4.5 MCG INHALER INHALATION SCH (21:54)
[2020-01-20] MEDS: MORPHINE SULFATE 4 MG/ML SYRINGE IV PRN ×3 (01:10→15:37)
[2020-01-20] MEDS: HYDROcodone/APAP 5-325MG 1 EACH TAB PO PRN ×3 (01:50→17:29)
[2020-01-20] MEDS ORDERED: NITROGLYCERIN OINT 1 INCH/GM PACKET TOPICAL SCH (02:45)
[2020-01-20] MEDS: SODIUM CHLORIDE 0.9% 1,000 ML IV SCH (05:50)
[2020-01-20] MEDS: PANTOPRAZOLE 40 MG TABLET PO SCH (06:40)
[2020-01-20 06:41] LABS: Calcium 8.7 mg/dL (8.4-10.2); Potassium 4.6 mmol/L (3.5-5.1)
[2020-01-20 06:53] LABS: Basophils # (A) 0.1 k/uL (0-0.2); Basophils % (A) 1 %; Eosinophils # (A) 0.2 k/uL (0-0.7); Eosinophils % (A) 4 %; HCT 38.7 % (34.0-46.0); HGB 12.6 gm/dL (11.4-16.0); Lymphocytes # (A) 3.1 k/uL (1.0-4.8); Lymphocytes % (A) 56 %; MCH 30.8 pg (25.0-35.0); MCHC 32.5 g/dL (31.0-37.0); MCV 94.9 fL (80.0-100.0); Mean Platelet Volume 7.4; Monocytes # (A) 0.3 k/uL (0-1.0); Monocytes % (A) 5 %; Neutrophils # (A) 1.8 k/uL (1.3-7.7); Neutrophils % (A) 32 %; Platelet Count 325 k/uL (150-450); RBC 4.08 m/uL (3.80-5.40); RDW 14.8 % (11.5-15.5); WBC 5.6 k/uL (3.8-10.6)
[2020-01-20] MEDS: FUROSEMIDE 40 MG TAB PO SCH ×2 (08:14→15:37)
[2020-01-20] MEDS: ASPIRIN 81 MG PO SCH (08:15)
[2020-01-20] MEDS: ISOSORBIDE MONONITRATE ER 30 MG TAB.ER.24H PO SCH (08:15)
[2020-01-20] MEDS: DIVALPROEX ER 500 MG TAB.ER.24H PO SCH (08:15)
[2020-01-20] MEDS: SPIRONOLACTONE 25 MG TAB PO SCH ×2 (08:15→20:37)
[2020-01-20] MEDS: GABAPENTIN 300 MG CAP PO SCH ×3 (08:15→23:16)
[2020-01-20] MEDS: TICAGRELOR 90 MG TAB PO SCH ×2 (08:15→20:36)
[2020-01-20] MEDS: SACUBITRIL/VALSARTAN 24 MG-26 MG TABLET PO SCH ×2 (08:15→20:37)
[2020-01-20] MEDS: IPRATROPIUM 0.5 MG/2.5 ML NEBU INHALATION SCH ×6 (08:56→20:22)
[2020-01-20] MEDS: SYMBICORT 160-4.5 MCG INHALER INHALATION SCH ×2 (08:56→20:23)
[2020-01-20] MEDS: METOPROLOL TARTRATE 25 MG TAB PO SCH ×3 (09:56→23:16)
[2020-01-20] MEDS: tiZANidine 4 MG TAB PO PRN (11:21)
[2020-01-20] MEDS: DOCUSATE 100 MG CAP PO SCH ×2 (11:34→20:36)
--- NOTE | 2020-01-20 11:38 | ECHOF ---
Referral Reason:syncope MEASUREMENTS -------- HEIGHT: 157.5 cm WEIGHT: 93.0 kg BP: 89/52 RVIDd: 3.1 cm (< 3.3) IVSd: 0.7 cm (0.6 - 1.1) LVIDd: 6.1 cm (3.9 - 5.3) LVPWd: 0.9 cm (0.6 - 1.1) IVSs: 0.9 cm LVIDs: 5.0 cm LVPWs: 1.2 cm LAESV Index (A-L): 30.84 ml/m Ao Diam: 2.6 cm (2.0 - 3.7) AV Cusp: 1.9 cm (1.5 - 2.6) LA Diam: 3.4 cm (2.7 - 3.8) MV EXCURSION: 15.618 mm (> 18.000) MV EF SLOPE: 58 mm/s (70 - 150) EPSS: 2.1 cm MV E Alfie: 0.91 m/s MV DecT: 318 ms MV A Alfie: 0.59 m/s MV E/A Ratio: 1.55 AR PHT: 531 ms RAP: 5.00 mmHg RVSP: 36.85 mmHg FINDINGS -------- AICD Pacemaker This was a technically difficult study with suboptimal views. The left ventricle is moderately dilated. Left ventricular wall thickness is normal. There is sev ere global hypokinesis of LV . Overall left ventricular systolic function is severely impaired with , an EF between 20 - 25 %. Left ventricular fillimg pressure cannot be estimated due to paced rhyth m. The right ventricle is normal in size. LA is midly dilated 29-33ml/m2. The right atrial size is normal. Lumason used The aortic valve is trileaflet and appears structurally normal. There is mild aortic regurgitation. The mitral valve is normal. There is trace mitral regurgitation. The tricuspid valve appears structurally normal. No regurgitation noted There is mild pulmonary h ypertension. The right ventricular systolic pressure, as measured by Doppler, is 36.85mmHg. There is no pulmonic regurgitation present. The aortic root size is normal. IVC Not well visulized. There is no pericardial effusion. CONCLUSIONS -------- 1. AICD 2. Pacemaker 3. This was a technically difficult study with suboptimal views. 4. The left ventricle is moderately dilated. 5. Left ventricular wall thickness is normal. 6. There is severe global hypokinesis of LV . 7. Overall left ventricular systolic function is severely impaired with, an EF between 20 - 25 %. 8. Left ventricular fillimg pressure cannot be estimated due to paced rhythm. 9. The right ventricle is normal in size. 10. LA is midly dilated 29-33ml/m2. 11. The right atrial size is normal. 12. Lumason used 13. The aortic valve is trileaflet and appears structurally normal. 14. There is mild aortic regurgitation. 15. The mitral valve is normal. 16. There is trace mitral regurgitation. 17. The tricuspid valve appears structurally normal. 18. No regurgitation noted 19. There is mild pulmonary hypertension. 20. The right ventricular systolic pressure, as measured by Doppler, is 36.85mmHg. 21. There is no pulmonic regurgitation present. 22. The aortic root size is normal. 23. IVC Not well visulized. 24. There is no pericardial effusion. HYDROLOGIC ENGINEER: Urvashi Downs RDCS
--- NOTE | 2020-01-20 13:01 | P.PN ---
Subjective Progress Note Date: 01/20/20 This is a pleasant 44-year-old female with documented history of coronary artery disease, in 2003 patient presented with an acute myocardial infarction underwent angioplasty and stenting. Most recent stent was placed in November of this year to the circumflex artery. She also has a history of hyper tension, hyperlipidemia, nicotine dependence, anxiety and depression, ischemic cardio myopathy with prior AICD implantation. She presents to the hospital on this occasion with symptoms of progressively worsening dizziness and weakness. She does state that she got up from bed and started walking and found herself on the floor. She was alert and oriented 3 upon wakening. She states she's been getting intermittent chest pains at home. Overall patient has been extremely weak, experiencing diarrhea for 2 weeks, she also noticed her weight to be up significantly and for this reason her primary care doctor had increased her dose of Lasix and Aldactone. She states that after that she was urinating all the time, but her dose back to her usual. Subsequent to that patient again noticed significant weight gain and was overall feeling extremely weak and dizzy, her blood pressures running much lower than usual at home. She went to see the nurse practitioner at her cardiology office who again increase her Lasix and Aldactone. On presentation here the patient's blood pressure was 85/58, this morning 102/56, heart rate in the 50s, 97% on room air. Her EKG showed a sinus bradycardia with anterior lateral ST-T wave changes. CT of the head and spine negative left hand x-ray subacute fracture, chest x-ray did not reveal any acute disease. Laboratory data was reviewed, white blood cell count 9.4, hemoglobin 13.2, platelet count 350. Sodium 136, potassium 3.7, BUN 11, creatinine 0.9, troponins negative 1. Magnesium 1.8. At the time of my examination this morning, patient just feels down and generally weak. Denies any dizziness at present, no chest discomfort and her breathing is stable. 01/20/2020 Patient seen and examined this morning, still has mild dizziness, complained of chest pressure through the night last night. No significant EKG changes. Blood pressure remains on the low side this morning. Dr. Paez's recommendation is for the patient to undergo cardiac catheterization, we will speak with Dr. Mc about this. Blood pressure at present 98/50, heart rate in the 50s, 99% on room air. White blood cell count 5.6, hemoglobin 12.6, platelet count 325. Sodium 135, potassium 4.6, BUN 12, creatinine 1.0. Objective - Vital Signs Vital signs: Vital Signs Temp 96.8 F L 01/20/20 11:21 Pulse 53 L 01/20/20 11:21 Resp 20 01/20/20 11:21 BP 98/55 01/20/20 11:21 Pulse Ox 99 01/20/20 11:21 Intake & Output 01/19/20 01/20/20 01/20/20 18:59 06:59 18:59 Intake Total 240 1000 236 Output Total 700 Balance 240 300 236 Weight 93.3 kg Intake: Oral 240 1000 236 Output: Urine 700 Other: Voiding Method Toilet Toilet Toilet # Voids 1 1 - Exam PHYSICAL EXAMINATION: GENERAL: 44-year-old female in no acute distress at the time of my examination HEENT: Head is atraumatic, normocephalic. Pupils equal, round. Sclera anicteric. Conjunctiva are clear. Mucous membranes of the mouth are moist. Neck is supple. There is no elevated jugular venous pressure. No carotid bruit is heard. HEART EXAMINATION: Heart S1, S2 normal. No murmur or gallop heard. CHEST EXAMINATION: Lungs are clear to auscultation and precussion. No chest wall tenderness is noted on palpation or with deep breathing. ABDOMEN: Soft, nontender. Bowel sounds are heard. No organomegaly noted. EXTREMITIES: 2+ peripheral pulses with no evidence of peripheral edema and no calf tenderness noted. NEUROLOGIC patient is awake, alert and oriented 3 . - Labs CBC & Chem 7: 01/20/20 05:48 01/20/20 05:48 Labs: Abnormal Lab Results - Last 24 Hours (Table) 01/20/20 Range/Units 05:48 Sodium 135 L (137-145) mmol/L Assessment and Plan Plan: Assessment and plan #1 weakness and dizziness with subsequent syncope, likely related to dehydration and hypotension. Blood pressure on arrival 85/60. #2 coronary artery disease history with prior stent placements, the most recent stent was placed in November of this year to the circumflex artery. #3 ischemic cardio myopathy with prior AICD implantation #4 intermittent chest pains, atypical in nature, troponins negative times one #5 hyperlipidemia #6 hypertension #7 nicotine dependence #8 anxiety and depression #9 episode of chest pressure and heaviness, through the night last night, troponins are negative 3. EKG does not show any acute changes. Plan Patient has been advised to undergo cardiac catheterization, the risks and the benefits again explained to the patient in detail. This will be performed on Monday by Dr. Mc. DNP note has been reviewed, I agree with a documented findings and plan of care. Patient was seen and examined.
[2020-01-20] MEDS ORDERED: ALPRAZolam 0.25 MG TAB PO PRN (13:02)
[2020-01-20] MEDS ORDERED: NITROGLYCERIN SL TABS 0.4 MG TAB SUBLINGUAL PRN (13:02)
[2020-01-20] MEDS: KETOROLAC 30 MG/ML 1 ML VIAL IVP PRN ×2 (13:56→20:44)
--- NOTE | 2020-01-20 17:30 | P.PN ---
Subjective Progress Note Date: 01/20/20 This is a 44-year-old white female well-known to me. She continues to smoke in spite of the fact that she's had a myocardial infarction in 2003 and multiple coronary artery procedures including a PTCA just November of this year. She reports that she's been having some diarrhea and is feeling off for the past 2 weeks. She reports getting up last night and walked approximately 50 feet when she blacked out and lost consciousness for a few seconds. She is newly found on the floor by her family. She was stiff and sore from contusions to her neck shoulder and hand of the left side. She was not confused. She did not bite her tongue. She had not urinated desiccator self. She says other than a headache, and bruising, and she was okay. She said at home for approximately 30 minutes and then was transported to emergency room. She is since been noted to be hypotensive. She is does take Aldactone, and trust oh, metoprolol, Imdur, furosemide for her coronary artery disease and CHF. Currently she feels better after IV fluids. Her AICD will be interrogated later by cardiology. She currently denies any chest pains pressures or shortness of breath. 01/20/2020 pacemaker interrogated, reported as normal. Borderline hypotension, negative for orthostatic. Complains of chest pain left-sided chest radiating to right-sided chest, upper left neck into the left arm, at rest. Cardiology discussing potential cardiac catheterization. EKG, echo pending. Objective - Vital Signs Vital signs: Vital Signs Temp 97.7 F 01/20/20 15:31 Pulse 53 L 01/20/20 16:00 Resp 18 01/20/20 15:31 BP 93/64 01/20/20 15:31 Pulse Ox 98 01/20/20 15:31 Intake & Output 01/19/20 01/20/20 01/20/20 18:59 06:59 18:59 Intake Total 240 1000 236 Output Total 700 1400 Balance 240 300 -1164 Weight 93.3 kg Intake: Oral 240 1000 236 Output: Urine 700 1400 Other: Voiding Method Toilet Toilet Toilet # Voids 1 1 - Exam GENERAL: Sitting up in bed, no acute distress, talking on the phone HEAD: Atraumatic, normocephalic. EYES: Pupils equal round and reactive to light, extraocular movements intact, sclera anicteric, conjunctiva are normal. ENT:nares patent, oropharynx clear without exudates. Moist mucous membranes. NECK: Normal range of motion, supple without lymphadenopathy or JVD, no thyromegaly LUNGS: Breath sounds slightly coarse to auscultation bilaterally and equal. No wheezes rales or rhonchi. HEART: Regular rate and rhythm without murmurs, rubs or gallops.S1S2 Normal ABDOMEN: Soft, nontender, normoactive bowel sounds. No guarding, no rebound. No masses appreciated. EXTREMITIES: Normal range of motion, no pitting or edema. No clubbing or cyanosis. NEUROLOGICAL: Cranial nerves II through XII grossly intact. No focal deficits. PSYCH: Normal mood, normal affect. SKIN: Warm, Dry, normal turgor, no rashes or lesions noted. - Labs CBC & Chem 7: 01/20/20 05:48 01/20/20 05:48 Labs: Abnormal Lab Results - Last 24 Hours (Table) 01/20/20 Range/Units 05:48 Sodium 135 L (137-145) mmol/L Assessment and Plan Assessment: (1) Syncope Current Visit: Yes Status: Acute Code(s): R55 - SYNCOPE AND COLLAPSE SNOMED Code(s): 996731805 (2) CAD (coronary artery disease) Current Visit: No Status: Acute Code(s): I25.10 - ATHSCL HEART DISEASE OF [place] CORONARY ARTERY W/O ANG PCTRS SNOMED Code(s): 62972705 (3) Hyperlipidemia Current Visit: No Status: Acute Code(s): E78.5 - HYPERLIPIDEMIA, UNSPECIFIED SNOMED Code(s): 04280005 (4) Ischemic cardiomyopathy Current Visit: No Status: Acute Code(s): I25.5 - ISCHEMIC CARDIOMYOPATHY SNOMED Code(s): 178507072 (5) Nicotine dependence Current Visit: No Status: Acute Code(s): F17.200 - NICOTINE DEPENDENCE, UNSPECIFIED, UNCOMPLICATED SNOMED Code(s): 37106234 (6) Personal history of hypertensive heart disease Current Visit: No Status: Acute Code(s): Z86.79 - PERSONAL HISTORY OF OTHER DISEASES OF THE CIRCULATORY SYSTEM SNOMED Code(s): 855120470 (7) Presence of stent in LAD coronary artery Current Visit: No Status: Acute Code(s): Z95.5 - PRESENCE OF CORONARY ANGIOPLASTY IMPLANT AND GRAFT SNOMED Code(s): 383190503460402 (8) Presence of stent in LAD coronary artery Current Visit: No Status: Acute Code(s): Z95.5 - PRESENCE OF CORONARY ANGIOPLASTY IMPLANT AND GRAFT SNOMED Code(s): 649335847159255 Plan: Continue on current medication regime ,monitoring and symptomatic treatment. Echo/EKG pending. Stool softener added for complaints of constipation. Smoking cessation reinforced. PT/OT. Cardiology discussing potential cardiac catheterization. The impression and plan of care has been dictated as directed. : I performed a history and examination of this patient, discussed the same with the dictator. I agree with the dictator's note ,documented as a scribe. Any additional findings or plans will be noted.
[2020-01-20] MEDS: ALBUTEROL NEBULIZED 2.5 MG/3 ML INHALATION PRN (20:22)
[2020-01-20] MEDS: ESCITALOPRAM 10 MG TAB PO SCH (20:37)
[2020-01-20] MEDS: ATORVASTATIN 80 MG TAB PO SCH (20:37)
[2020-01-21] MEDS: SODIUM CHLORIDE 0.9% 1,000 ML IV SCH (06:15)
[2020-01-21] MEDS: PANTOPRAZOLE 40 MG TABLET PO SCH (06:16)
[2020-01-21] MEDS: SPIRONOLACTONE 25 MG TAB PO SCH ×2 (07:54→21:22)
[2020-01-21] MEDS: DIVALPROEX ER 500 MG TAB.ER.24H PO SCH (07:54)
[2020-01-21] MEDS: ISOSORBIDE MONONITRATE ER 30 MG TAB.ER.24H PO SCH (07:54)
[2020-01-21] MEDS: ASPIRIN 81 MG PO SCH (07:54)
[2020-01-21] MEDS: GABAPENTIN 300 MG CAP PO SCH ×2 (07:54→16:24)
[2020-01-21] MEDS: DOCUSATE 100 MG CAP PO SCH ×2 (07:54→21:22)
[2020-01-21] MEDS: TICAGRELOR 90 MG TAB PO SCH ×2 (07:55→21:22)
[2020-01-21] MEDS: FUROSEMIDE 40 MG TAB PO SCH ×2 (07:55→16:24)
[2020-01-21] MEDS: METOPROLOL TARTRATE 25 MG TAB PO SCH ×3 (07:55→21:22)
[2020-01-21] MEDS: SACUBITRIL/VALSARTAN 24 MG-26 MG TABLET PO SCH ×2 (07:55→21:23)
[2020-01-21] MEDS: HYDROcodone/APAP 5-325MG 1 EACH TAB PO PRN ×2 (08:00→18:46)
[2020-01-21] MEDS: IPRATROPIUM 0.5 MG/2.5 ML NEBU INHALATION SCH ×4 (08:47→20:00)
[2020-01-21] MEDS: SYMBICORT 160-4.5 MCG INHALER INHALATION SCH ×2 (08:47→20:01)
[2020-01-21 09:07] LABS: Basophils # (A) 0.1 k/uL (0-0.2); Basophils % (A) 1 %; Eosinophils # (A) 0.2 k/uL (0-0.7); Eosinophils % (A) 3 %; HCT 37.7 % (34.0-46.0); HGB 12.2 gm/dL (11.4-16.0); Lymphocytes # (A) 2.4 k/uL (1.0-4.8); Lymphocytes % (A) 32 %; MCH 30.3 pg (25.0-35.0); MCHC 32.3 g/dL (31.0-37.0); Mean Platelet Volume 7.4; Monocytes # (A) 0.4 k/uL (0-1.0); Monocytes % (A) 5 %; Neutrophils # (A) 4.5 k/uL (1.3-7.7); Neutrophils % (A) 59 %; Platelet Count 318 k/uL (150-450); RBC 4.01 m/uL (3.80-5.40); RDW 14.8 % (11.5-15.5); WBC 7.7 k/uL (3.8-10.6)
[2020-01-21 09:15] LABS: Calcium 8.8 mg/dL (8.4-10.2); Potassium 4.3 mmol/L (3.5-5.1)
--- NOTE | 2020-01-21 10:40 | P.PN ---
Subjective Progress Note Date: 01/21/20 This is a pleasant 44-year-old female with documented history of coronary artery disease, in 2003 patient presented with an acute myocardial infarction underwent angioplasty and stenting. Most recent stent was placed in November of this year to the circumflex artery. She also has a history of hyper tension, hyperlipidemia, nicotine dependence, anxiety and depression, ischemic cardio myopathy with prior AICD implantation. She presents to the hospital on this occasion with symptoms of progressively worsening dizziness and weakness. She does state that she got up from bed and started walking and found herself on the floor. She was alert and oriented 3 upon wakening. She states she's been getting intermittent chest pains at home. Overall patient has been extremely weak, experiencing diarrhea for 2 weeks, she also noticed her weight to be up significantly and for this reason her primary care doctor had increased her dose of Lasix and Aldactone. She states that after that she was urinating all the time, but her dose back to her usual. Subsequent to that patient again noticed significant weight gain and was overall feeling extremely weak and dizzy, her blood pressures running much lower than usual at home. She went to see the nurse practitioner at her cardiology office who again increase her Lasix and Aldactone. On presentation here the patient's blood pressure was 85/58, this morning 102/56, heart rate in the 50s, 97% on room air. Her EKG showed a sinus bradycardia with anterior lateral ST-T wave changes. CT of the head and spine negative left hand x-ray subacute fracture, chest x-ray did not reveal any acute disease. Laboratory data was reviewed, white blood cell count 9.4, hemoglobin 13.2, platelet count 350. Sodium 136, potassium 3.7, BUN 11, creatinine 0.9, troponins negative 1. Magnesium 1.8. At the time of my examination this morning, patient just feels down and generally weak. Denies any dizziness at present, no chest discomfort and her breathing is stable. 01/20/2020 Patient seen and examined this morning, still has mild dizziness, complained of chest pressure through the night last night. No significant EKG changes. Blood pressure remains on the low side this morning. Dr. Paez's recommendation is for the patient to undergo cardiac catheterization, we will speak with Dr. Mc about this. Blood pressure at present 98/50, heart rate in the 50s, 99% on room air. White blood cell count 5.6, hemoglobin 12.6, platelet count 325. Sodium 135, potassium 4.6, BUN 12, creatinine 1.0. 01/21/2020 Patient was seen and examined this morning, she slept well last night, dizziness is improving, denied any further chest discomfort. Blood pressure 130/70 with a heart rate in the 70s, 90% on room air. Objective - Vital Signs Vital signs: Vital Signs Temp 97.8 F 01/21/20 08:00 Pulse 67 01/21/20 09:00 Resp 20 01/21/20 08:00 BP 131/72 01/21/20 08:00 Pulse Ox 98 01/21/20 08:00 Intake & Output 01/20/20 01/21/20 01/21/20 18:59 06:59 18:59 Intake Total 466 240 Output Total 1999 200 Balance -1534 -200 240 Weight 93.3 kg Intake: Oral 466 240 Output: Urine 1999 200 Other: Voiding Method Toilet Toilet Toilet # Voids 3 - Exam PHYSICAL EXAMINATION: GENERAL: 44-year-old female in no acute distress at the time of my examination HEENT: Head is atraumatic, normocephalic. Pupils equal, round. Sclera anicteric. Conjunctiva are clear. Mucous membranes of the mouth are moist. Neck is supple. There is no elevated jugular venous pressure. No carotid bruit is heard. HEART EXAMINATION: Heart S1, S2 normal. No murmur or gallop heard. CHEST EXAMINATION: Lungs are clear to auscultation and precussion. No chest wall tenderness is noted on palpation or with deep breathing. ABDOMEN: Soft, nontender. Bowel sounds are heard. No organomegaly noted. EXTREMITIES: 2+ peripheral pulses with no evidence of peripheral edema and no calf tenderness noted. NEUROLOGIC patient is awake, alert and oriented 3 . - Labs CBC & Chem 7: 01/21/20 08:09 01/21/20 08:09 Labs: Abnormal Lab Results - Last 24 Hours (Table) 01/21/20 Range/Units 08:09 Creatinine 1.07 H (0.52-1.04) mg/dL Assessment and Plan Plan: Assessment and plan #1 weakness and dizziness with subsequent syncope, likely related to dehydration and hypotension. Blood pressure on arrival 85/60. #2 coronary artery disease history with prior stent placements, the most recent stent was placed in November of this year to the circumflex artery. #3 ischemic cardio myopathy with prior AICD implantation #4 intermittent chest pains, atypical in nature, troponins negative times one #5 hyperlipidemia #6 hypertension #7 nicotine dependence #8 anxiety and depression #9 episode of chest pressure and heaviness, through the night last night, troponins are negative 3. EKG does not show any acute changes. Plan We will continue the patient on her current medications. She is scheduled to undergo cardiac catheterization tomorrow with Dr. Mc. Further recommendations will be based on those findings and the patient's overall clinical course. DNP note has been reviewed, I agree with a documented findings and plan of care. Patient was seen and examined.
[2020-01-21] MEDS: ALPRAZolam 0.5 MG TAB PO PRN ×2 (13:12→21:24)
[2020-01-21] MEDS: MORPHINE SULFATE 4 MG/ML SYRINGE IV PRN ×2 (13:12→21:24)
[2020-01-21] MEDS: KETOROLAC 30 MG/ML 1 ML VIAL IVP PRN (15:31)
--- NOTE | 2020-01-21 16:58 | P.PN ---
Subjective Progress Note Date: 01/21/20 This is a 44-year-old white female well-known to me. She continues to smoke in spite of the fact that she's had a myocardial infarction in 2003 and multiple coronary artery procedures including a PTCA just November of this year. She reports that she's been having some diarrhea and is feeling off for the past 2 weeks. She reports getting up last night and walked approximately 50 feet when she blacked out and lost consciousness for a few seconds. She is newly found on the floor by her family. She was stiff and sore from contusions to her neck shoulder and hand of the left side. She was not confused. She did not bite her tongue. She had not urinated desiccator self. She says other than a headache, and bruising, and she was okay. She said at home for approximately 30 minutes and then was transported to emergency room. She is since been noted to be hypotensive. She is does take Aldactone, and trust oh, metoprolol, Imdur, furosemide for her coronary artery disease and CHF. Currently she feels better after IV fluids. Her AICD will be interrogated later by cardiology. She currently denies any chest pains pressures or shortness of breath. 01/20/2020 pacemaker interrogated, reported as normal. Borderline hypotension, negative for orthostatic. Complains of chest pain left-sided chest radiating to right-sided chest, upper left neck into the left arm, at rest. Cardiology discussing potential cardiac catheterization. EKG, echo pending. 01/21/2020 currently denies dizziness. Reports fluctuating left-sided radiating chest discomfort. Echo reporting severely impaired LV function, EF 20-25%, mild pulmonary hypertension. Scheduled for cardiac catheterization tomorrow. Declined working with PT today. Vital signs stable. Creatinine 1.07. Objective - Vital Signs Vital signs: Vital Signs Temp 97.7 F 01/21/20 12:00 Pulse 64 01/21/20 15:55 Resp 20 01/21/20 12:00 BP 133/81 01/21/20 12:00 Pulse Ox 98 01/21/20 12:00 Intake & Output 01/20/20 01/21/20 01/21/20 18:59 06:59 18:59 Intake Total 466 477 Output Total 1999 200 999 Balance -1534 -200 -523 Weight 93.3 kg Intake: Oral 466 477 Output: Urine 1999 200 1000 Other: Voiding Method Toilet Toilet Toilet # Voids 2 - Exam GENERAL: Sitting up in bed, no acute distress HEAD: Atraumatic, normocephalic. EYES: Pupils equal round and reactive to light, extraocular movements intact, sclera anicteric, conjunctiva are normal. ENT:nares patent, oropharynx clear without exudates. Moist mucous membranes. NECK: Normal range of motion, supple without lymphadenopathy or JVD, no thyromegaly LUNGS: Clear to auscultation bilaterally and equal. No wheezes rales or rhonchi. HEART: Regular rate and rhythm without murmurs, rubs or gallops.S1S2 Normal ABDOMEN: Soft, nontender, normoactive bowel sounds. No guarding, no rebound. No masses appreciated. EXTREMITIES: Normal range of motion, no pitting or edema. No clubbing or cyanosis. NEUROLOGICAL: Cranial nerves II through XII grossly intact. No focal deficits. PSYCH: Normal mood, normal affect. SKIN: Warm, Dry, normal turgor, no rashes or lesions noted. - Labs CBC & Chem 7: 01/21/20 08:09 01/21/20 08:09 Labs: Abnormal Lab Results - Last 24 Hours (Table) 01/21/20 Range/Units 08:09 Creatinine 1.07 H (0.52-1.04) mg/dL Assessment and Plan Assessment: (1) Syncope Current Visit: Yes Status: Acute Code(s): R55 - SYNCOPE AND COLLAPSE SNOMED Code(s): 859387272 (2) CAD (coronary artery disease) Current Visit: No Status: Acute Code(s): I25.10 - ATHSCL HEART DISEASE OF [place] CORONARY ARTERY W/O ANG PCTRS SNOMED Code(s): 81966708 (3) Hyperlipidemia Current Visit: No Status: Acute Code(s): E78.5 - HYPERLIPIDEMIA, UNSPECIFIED SNOMED Code(s): 53721571 (4) Ischemic cardiomyopathy, EF 20-25% Current Visit: No Status: Acute Code(s): I25.5 - ISCHEMIC CARDIOMYOPATHY SNOMED Code(s): 214130037 (5) Nicotine dependence Current Visit: No Status: Acute Code(s): F17.200 - NICOTINE DEPENDENCE, UNSPECIFIED, UNCOMPLICATED SNOMED Code(s): 60242546 (6) Personal history of hypertensive heart disease Current Visit: No Status: Acute Code(s): Z86.79 - PERSONAL HISTORY OF OTHER DISEASES OF THE CIRCULATORY SYSTEM SNOMED Code(s): 957903699 (7) Presence of stent in LAD coronary artery Current Visit: No Status: Acute Code(s): Z95.5 - PRESENCE OF CORONARY ANGIOPLASTY IMPLANT AND GRAFT SNOMED Code(s): 965145750862752 (8) Presence of stent in [place] coronary artery Current Visit: No Status: Acute Code(s): Z95.5 - PRESENCE OF CORONARY ANGIOPLASTY IMPLANT AND GRAFT SNOMED Code(s): 978605264531193 Plan: Continue on current medication regime ,monitoring and symptomatic treatment. Scheduled for cardiac catheterization tomorrow .Smoking cessation reinforced. PT/OT. The impression and plan of care has been dictated as directed. : I performed a history and examination of this patient, discussed the same with the dictator. I agree with the dictator's note ,documented as a scribe. Any additional findings or plans will be noted.
[2020-01-21] MEDS: ESCITALOPRAM 10 MG TAB PO SCH (21:22)
[2020-01-21] MEDS: ATORVASTATIN 80 MG TAB PO SCH (21:22)
[2020-01-22] MEDS: KETOROLAC 30 MG/ML 1 ML VIAL IVP PRN ×2 (00:17→18:57)
[2020-01-22] MEDS: GABAPENTIN 300 MG CAP PO SCH ×4 (00:17→23:28)
[2020-01-22] MEDS: MORPHINE SULFATE 4 MG/ML SYRINGE IV PRN ×3 (04:21→21:28)
[2020-01-22] MEDS: SODIUM CHLORIDE 0.9% 1,000 ML IV SCH ×2 (04:23→15:20)
[2020-01-22] MEDS: ALPRAZolam 0.5 MG TAB PO PRN ×2 (04:24→21:27)
[2020-01-22] MEDS: PANTOPRAZOLE 40 MG TABLET PO SCH (05:56)
[2020-01-22] MEDS ORDERED: SODIUM CHLORIDE 0.9% 1,000 ML in EMPTY BAG 1 BAG IV ONE (06:00)
[2020-01-22] MEDS ORDERED: ATORVASTATIN 80 MG TAB PO ONE (06:00)
[2020-01-22] MEDS ORDERED: ASPIRIN 325 MG TAB PO ONE (06:00)
[2020-01-22] MEDS: SYMBICORT 160-4.5 MCG INHALER INHALATION SCH ×2 (07:18→18:41)
[2020-01-22] MEDS: IPRATROPIUM 0.5 MG/2.5 ML NEBU INHALATION SCH ×4 (07:18→18:41)
[2020-01-22] MEDS: ISOSORBIDE MONONITRATE ER 30 MG TAB.ER.24H PO SCH (08:13)
[2020-01-22] MEDS: FUROSEMIDE 40 MG TAB PO SCH ×2 (08:13→16:13)
[2020-01-22] MEDS: DIVALPROEX ER 500 MG TAB.ER.24H PO SCH (08:13)
[2020-01-22] MEDS: SPIRONOLACTONE 25 MG TAB PO SCH ×2 (08:13→21:27)
[2020-01-22] MEDS: DOCUSATE 100 MG CAP PO SCH ×2 (08:13→21:27)
[2020-01-22] MEDS: METOPROLOL TARTRATE 25 MG TAB PO SCH ×3 (08:13→21:27)
[2020-01-22] MEDS: TICAGRELOR 90 MG TAB PO SCH ×2 (08:14→21:27)
[2020-01-22] MEDS: SACUBITRIL/VALSARTAN 24 MG-26 MG TABLET PO SCH ×2 (08:18→21:31)
[2020-01-22] MEDS: HYDROcodone/APAP 5-325MG 1 EACH TAB PO PRN ×2 (08:18→18:56)
[2020-01-22] MEDS ORDERED: IV FLUID CONTINUATION 200 ML IV ONE (14:10)
[2020-01-22] MEDS ORDERED: LIDOCAINE 1% INJ 10MG/ML (20 ML MDV) ONE (14:15)
[2020-01-22] MEDS ORDERED: VERAPAMIL 2.5 MG/ML 2 ML AMP ONE (14:15)
[2020-01-22] MEDS ORDERED: MIDAZOLAM 2 MG/2 ML VIAL IVP ONE (14:24)
[2020-01-22] MEDS ORDERED: LIDOCAINE 1% INJ 10MG/ML (20 ML MDV) SQ ONE (14:26)
[2020-01-22] MEDS ORDERED: fentaNYL (PF) 50 MCG/ML 2 ML AMP ONE (14:27)
--- NOTE | 2020-01-22 14:27 | P.PN ---
Subjective Progress Note Date: 01/22/20 This is a 44-year-old white female well-known to me. She continues to smoke in spite of the fact that she's had a myocardial infarction in 2003 and multiple coronary artery procedures including a PTCA just November of this year. She reports that she's been having some diarrhea and is feeling off for the past 2 weeks. She reports getting up last night and walked approximately 50 feet when she blacked out and lost consciousness for a few seconds. She is newly found on the floor by her family. She was stiff and sore from contusions to her neck shoulder and hand of the left side. She was not confused. She did not bite her tongue. She had not urinated desiccator self. She says other than a headache, and bruising, and she was okay. She said at home for approximately 30 minutes and then was transported to emergency room. She is since been noted to be hypotensive. She is does take Aldactone, and trust oh, metoprolol, Imdur, furosemide for her coronary artery disease and CHF. Currently she feels better after IV fluids. Her AICD will be interrogated later by cardiology. She currently denies any chest pains pressures or shortness of breath. 01/20/2020 pacemaker interrogated, reported as normal. Borderline hypotension, negative for orthostatic. Complains of chest pain left-sided chest radiating to right-sided chest, upper left neck into the left arm, at rest. Cardiology discussing potential cardiac catheterization. EKG, echo pending. 01/21/2020 currently denies dizziness. Reports fluctuating left-sided radiating chest discomfort. Echo reporting severely impaired LV function, EF 20-25%, mild pulmonary hypertension. Scheduled for cardiac catheterization tomorrow. Declined working with PT today. Vital signs stable. Creatinine 1.07. 01/22/2020 orthostatic vital signs negative.currently reporting no chest discomfort .NPO, scheduled for cardiac catheterization today. Objective - Vital Signs Vital signs: Vital Signs Temp 97.6 F 01/22/20 08:00 Pulse 60 01/22/20 08:00 Resp 16 01/22/20 08:00 BP 100/59 01/22/20 08:00 Pulse Ox 93 L 01/22/20 08:00 Intake & Output 01/21/20 01/22/20 01/22/20 18:59 06:59 18:59 Intake Total 717 Output Total 1000 1900 Balance -283 -1900 Weight 94.5 kg Intake: Oral 717 Output: Urine 1000 1900 Other: Voiding Method Toilet Toilet # Voids 2 - Exam GENERAL: Sitting up in bed, no acute distress HEAD: Atraumatic, normocephalic. EYES: Pupils equal round and reactive to light, extraocular movements intact, sclera anicteric, conjunctiva are normal. ENT:nares patent, oropharynx clear without exudates. NECK: Normal range of motion, supple without lymphadenopathy or JVD, no thyromegaly LUNGS: Clear to auscultation bilaterally and equal. No wheezes rales or rhon chi. HEART: Regular rate and rhythm without murmurs, rubs or gallops.S1S2 Normal ABDOMEN: Soft, nontender, normoactive bowel sounds. No guarding, no rebound. No masses appreciated. EXTREMITIES: Normal range of motion, no pitting or edema. No clubbing or cyanosis. NEUROLOGICAL: Cranial nerves II through XII grossly intact. No focal deficits. PSYCH: Normal mood, normal affect. SKIN: Warm, Dry, normal turgor, no rashes noted. - Labs CBC & Chem 7: 01/21/20 08:09 01/21/20 08:09 Assessment and Plan Assessment: (1) Syncope Current Visit: Yes Status: Acute Code(s): R55 - SYNCOPE AND COLLAPSE SNOMED Code(s): 557943359 (2) CAD (coronary artery disease) Current Visit: No Status: Acute Code(s): I25.10 - ATHSCL HEART DISEASE OF [place] CORONARY ARTERY W/O ANG PCTRS SNOMED Code(s): 12800345 (3) Hyperlipidemia Current Visit: No Status: Acute Code(s): E78.5 - HYPERLIPIDEMIA, UNSPECIFIED SNOMED Code(s): 62140880 (4) Ischemic cardiomyopathy, EF 20-25% Current Visit: No Status: Acute Code(s): I25.5 - ISCHEMIC CARDIOMYOPATHY SNOMED Code(s): 601844906 (5) Nicotine dependence Current Visit: No Status: Acute Code(s): F17.200 - NICOTINE DEPENDENCE, UNSPECIFIED, UNCOMPLICATED SNOMED Code(s): 59965643 (6) Personal history of hypertensive heart disease Current Visit: No Status: Acute Code(s): Z86.79 - PERSONAL HISTORY OF OTHER DISEASES OF THE CIRCULATORY SYSTEM SNOMED Code(s): 369637919 (7) Presence of stent in LAD coronary artery Current Visit: No Status: Acute Code(s): Z95.5 - PRESENCE OF CORONARY ANGIOPLASTY IMPLANT AND GRAFT SNOMED Code(s): 210951474594078 (8) Presence of stent in LAD coronary artery Current Visit: No Status: Acute Code(s): Z95.5 - PRESENCE OF CORONARY ANGIOPLASTY IMPLANT AND GRAFT SNOMED Code(s): 010881606904368 Plan: Continue on current medication regime ,monitoring and symptomatic treatment. Cardiac catheterization today . Follow closely with cardiology. Smoking cessation reinforced. PT/OT. The impression and plan of care has been dictated as directed. : I performed a history and examination of this patient, discussed the same with the dictator. I agree with the dictator's note ,documented as a scribe. Any additional findings or plans will be noted.
[2020-01-22] MEDS: fentaNYL (PF) 50 MCG/ML 2 ML AMP IVP ONE ×2 (14:29→14:34)
[2020-01-22] MEDS: VERAPAMIL SYRINGE (5 MG/10 ML) INTRAARTER ONE ×2 (14:29→14:43)
[2020-01-22] MEDS ORDERED: HEPARIN SODIUM 1,000 UN/ML (10ML VL) IV ONE (14:31)
[2020-01-22] MEDS ORDERED: HEPARIN SODIUM 1,000 UN/ML (10ML VL) ONE (14:33)
[2020-01-22] MEDS ORDERED: HYDROmorphone 1 MG/ML 1 ML SYRINGE ONE (14:35)
[2020-01-22] MEDS ORDERED: HYDROmorphone 1 MG/ML 1 ML SYRINGE IVP ONE (14:37)
[2020-01-22] MEDS ORDERED: IOPAMIDOL-370 100ML BTL INJ ONE (14:46)
[2020-01-22] MEDS ORDERED: RX INFO: IV CONTRAST WAS GIVEN 1 EACH MISC MISCELLANE PRN (14:55)
[2020-01-22] MEDS ORDERED: SODIUM CHLORIDE 0.9% 1,000 ML IV SCH (15:00)
--- NOTE | 2020-01-22 18:55 | CC ---
CARDIAC CATHETERIZATION REPORT DATE OF SERVICE: 01/22/2020 PERFORMING PHYSICIAN: John Montoya M.D. PROCEDURE PERFORMED: 1. Selective right and left coronary angiogram. 2. Left heart catheterization. INDICATION: This is a 44-year-old female patient with coronary artery disease and prior triple- vessel stenting as well as significant history of smoking as well as hypertension and dyslipidemia who presented to the hospital with chest discomfort. She was seen by Dr. Herrera, who recommended proceeding with coronary angiogram. APPROACH: Right radial artery. COMPLICATIONS: None. LEVEL OF SEDATION: Moderate, with sedation length of 25 minutes. PROCEDURE DESCRIPTION: After obtaining informed consent, the patient was brought to the cardiac landscape laborer. The right radial artery was cannulated using micropuncture technique. The micropuncture wire passed easily. Then I placed a 6-Danish sheath. After that I did give the patient 2 mg of verapamil IA and 10,000 units of heparin IV. Selective right and left coronary angiogram was performed using JR4 and JL3.5 catheters. Left heart catheterization was performed using a 5-Danish pigtail catheter. The procedure was completed without any complication. SELECTIVE CORONARY ANGIOGRAM: 1. The right coronary artery is a large-caliber vessel and it is a dominant vessel. The RCA is stented in the proximal, mid and distal portions. The stent appears to be patent with only mild in-stent restenosis involving the mid portion that appeared to be unchanged compared to before. The RCA then bifurcates into PDA and PLV branches. The PDA branch is stented and the stent is patent. The PLV branch appeared to be angiographically normal. 2. The left main is angiographically normal. It bifurcates into LCX, ramus intermedius and left anterior descending artery. 3. The LCX is a large-caliber vessel and it is a nondominant vessel. The LCX is stented in the proximal and mid portions and the stents are patent. The distal LCX appeared to be angiographically normal. The LCX gives rise to first and second obtuse marginal branches. Both are small in caliber, but they seem to be angiographically normal. 4. The ramus intermedius is a moderate- to large-caliber vessel and is stented from before and the stent is patent. 5. The LAD. The proximal LAD has multiple layers of stents. The stents are patent. The mid LAD appeared to be also stented and the stent is patent as well. The LAD gives rise to first diagonal branch, which has a stent, and the stent has mild to moderate in-stent restenosis. The LAD appeared to be angiographically normal distally. 6. HEMODYNAMICS: The LVEDP was about 18 mmHg without significant gradient across the aortic valve. CONCLUSION: 1. Mild in-stent restenosis involving the mid RCA. Patent stent in the PDA branch of the RCA. 2. Patent stents in the LCX. 3. Patent stent in the ramus intermedius. 4. Patent stent in the LAD. Mild in-stent restenosis involving the first diagonal branch of the LAD. POST-PROCEDURE MANAGEMENT: 1. Given the above anatomy, I did recommend maximized medical treatment. 2. Smoking cessation was discussed with her again. 3. Follow up with the patient. MMODL / IJN: [id number] /
[2020-01-22] MEDS: ESCITALOPRAM 10 MG TAB PO SCH (21:27)
[2020-01-23] MEDS: PANTOPRAZOLE 40 MG TABLET PO SCH (06:50)
[2020-01-23] MEDS: IPRATROPIUM 0.5 MG/2.5 ML NEBU INHALATION SCH ×2 (07:36→11:45)
[2020-01-23] MEDS: SYMBICORT 160-4.5 MCG INHALER INHALATION SCH (07:37)
[2020-01-23 08:23] VITALS: RESP 16; TEMP 97.5
[2020-01-23] MEDS: GABAPENTIN 300 MG CAP PO SCH (08:26)
[2020-01-23] MEDS: METOPROLOL TARTRATE 25 MG TAB PO SCH (08:26)
[2020-01-23] MEDS: FUROSEMIDE 40 MG TAB PO SCH (08:26)
[2020-01-23] MEDS: SACUBITRIL/VALSARTAN 24 MG-26 MG TABLET PO SCH (08:26)
[2020-01-23] MEDS: SODIUM CHLORIDE 0.9% 1,000 ML IV SCH (08:27)
[2020-01-23] MEDS: TICAGRELOR 90 MG TAB PO SCH (08:27)
[2020-01-23] MEDS: ISOSORBIDE MONONITRATE ER 30 MG TAB.ER.24H PO SCH (08:27)
[2020-01-23] MEDS: DIVALPROEX ER 500 MG TAB.ER.24H PO SCH (08:27)
[2020-01-23] MEDS: ASPIRIN 81 MG PO SCH (08:27)
[2020-01-23] MEDS: SPIRONOLACTONE 25 MG TAB PO SCH (08:27)
[2020-01-23] MEDS: DOCUSATE 100 MG CAP PO SCH (08:27)
[2020-01-23] MEDS: HYDROcodone/APAP 5-325MG 1 EACH TAB PO PRN (08:29)
--- NOTE | 2020-01-23 09:45 | P.PN ---
Subjective Progress Note Date: 01/23/20 This is a pleasant 44-year-old female with documented history of coronary artery disease, in 2003 patient presented with an acute myocardial infarction underwent angioplasty and stenting. Most recent stent was placed in November of this year to the circumflex artery. She also has a history of hyper tension, hyperlipidemia, nicotine dependence, anxiety and depression, ischemic cardio myopathy with prior AICD implantation. She presents to the hospital on this occasion with symptoms of progressively worsening dizziness and weakness. She does state that she got up from bed and started walking and found herself on the floor. She was alert and oriented 3 upon wakening. She states she's been getting intermittent chest pains at home. Overall patient has been extremely weak, experiencing diarrhea for 2 weeks, she also noticed her weight to be up significantly and for this reason her primary care doctor had increased her dose of Lasix and Aldactone. She states that after that she was urinating all the time, but her dose back to her usual. Subsequent to that patient again noticed significant weight gain and was overall feeling extremely weak and dizzy, her blood pressures running much lower than usual at home. She went to see the nurse practitioner at her cardiology office who again increase her Lasix and Aldactone. On presentation here the patient's blood pressure was 85/58, this morning 102/56, heart rate in the 50s, 97% on room air. Her EKG showed a sinus bradycardia with anterior lateral ST-T wave changes. CT of the head and spine negative left hand x-ray subacute fracture, chest x-ray did not reveal any acute disease. Laboratory data was reviewed, white blood cell count 9.4, hemoglobin 13.2, platelet count 350. Sodium 136, potassium 3.7, BUN 11, creatinine 0.9, troponins negative 1. Magnesium 1.8. At the time of my examination this morning, patient just feels down and generally weak. Denies any dizziness at present, no chest discomfort and her breathing is stable. 01/20/2020 Patient seen and examined this morning, still has mild dizziness, complained of chest pressure through the night last night. No significant EKG changes. Blood pressure remains on the low side this morning. Dr. Paez's recommendation is for the patient to undergo cardiac catheterization, we will speak with Dr. Mc about this. Blood pressure at present 98/50, heart rate in the 50s, 99% on room air. White blood cell count 5.6, hemoglobin 12.6, platelet count 325. Sodium 135, potassium 4.6, BUN 12, creatinine 1.0. 01/21/2020 Patient was seen and examined this morning, she slept well last night, dizziness is improving, denied any further chest discomfort. Blood pressure 130/70 with a heart rate in the 70s, 90% on room air. 01/23/2020 Patient underwent a cardiac catheterization yesterday which did not reveal any significant obstructive coronary artery disease. She feels well this morning, denies any chest discomfort, no dizziness, breathing is stable. Blood pressure 108/56 with a heart rate in the 50s. Objective - Vital Signs Vital signs: Vital Signs Temp 97.5 F L 01/23/20 08:22 Pulse 50 L 01/23/20 08:22 Resp 16 01/23/20 08:22 BP 108/56 01/23/20 08:22 Pulse Ox 96 01/23/20 08:22 Intake & Output 01/22/20 01/23/20 01/23/20 18:59 06:59 18:59 Intake Total 390 200 Output Total 2000 4500 Balance -1610 -4500 200 Weight 92.6 kg Intake: IV 150 Oral 240 200 Output: Urine 1999 4500 Other: Voiding Method Toilet Toilet # Voids 2 - Exam PHYSICAL EXAMINATION: GENERAL: 44-year-old female in no acute distress at the time of my examination HEENT: Head is atraumatic, normocephalic. Pupils equal, round. Sclera anicteric. Conjunctiva are clear. Mucous membranes of the mouth are moist. Neck is supple. There is no elevated jugular venous pressure. No carotid bruit is heard. HEART EXAMINATION: Heart S1, S2 normal. No murmur or gallop heard. CHEST EXAMINATION: Lungs are clear to auscultation and precussion. No chest wall tenderness is noted on palpation or with deep breathing. ABDOMEN: Soft, nontender. Bowel sounds are heard. No organomegaly noted. EXTREMITIES: 2+ peripheral pulses with no evidence of peripheral edema and no calf tenderness noted. Right radial site is mildly ecchymotic, no hematoma, good distal pulse. NEUROLOGIC patient is awake, alert and oriented 3 . - Labs CBC & Chem 7: 01/21/20 08:09 01/21/20 08:09 Assessment and Plan Plan: Assessment and plan #1 weakness and dizziness with subsequent syncope, likely related to dehydration and hypotension. Blood pressure on arrival 85/60. #2 coronary artery disease history with prior stent placements, the most recent stent was placed in November of this year to the circumflex artery. #3 ischemic cardio myopathy with prior AICD implantation #4 intermittent chest pains, atypical in nature, troponins negative times one #5 hyperlipidemia #6 hypertension #7 nicotine dependence #8 anxiety and depression #9 episode of chest pressure and heaviness, through the night last night, troponins are negative 3. EKG does not show any acute changes. Plan Cardiac catheterization was performed which did not reveal any significantly obstructive coronary artery disease. From cardiology's perspective the patient may be able to be discharged home today. We will make her a follow-up appointment to see Dr. Mc in the office post discharge. DNP note has been reviewed, I agree with a documented findings and plan of care. Patient was seen and examined.
[2020-01-23 11:09] VITALS: BP 108/60; PULSE 60
--- NOTE | 2020-01-23 11:13 | P.DS ---
Providers Date of admission: 01/20/20 15:11 Expected date of discharge: 01/23/20 Attending physician: Brenden Rodriguez Consults: 01/19/20 01:58 Consult Physician Stat Consulting Provider: [facility] Consult Reason/Comments: Dizziness, syncopal event Do you want consulting provider notified?: Yes, Notify in am Primary care physician: Brendne Rodriguez [facility] Hospital Course: Final Diagnoses: (1) Syncope Current Visit: Yes Status: Acute Code(s): R55 - SYNCOPE AND COLLAPSE SNOMED Code(s): 470413038 (2) CAD (coronary artery disease) Current Visit: No Status: Acute Code(s): I25.10 - ATHSCL HEART DISEASE OF [place] CORONARY ARTERY W/O ANG PCTRS SNOMED Code(s): 90133826 (3) Hyperlipidemia Current Visit: No Status: Acute Code(s): E78.5 - HYPERLIPIDEMIA, UNSPECIFIED SNOMED Code(s): 01473548 (4) Ischemic cardiomyopathy, EF 20-25% Current Visit: No Status: Acute Code(s): I25.5 - ISCHEMIC CARDIOMYOPATHY SNOMED Code(s): 629469024 (5) Nicotine dependence Current Visit: No Status: Acute Code(s): F17.200 - NICOTINE DEPENDENCE, UNSPECIFIED, UNCOMPLICATED SNOMED Code(s): 96728348 (6) Personal history of hypertensive heart disease Current Visit: No Status: Acute Code(s): Z86.79 - PERSONAL HISTORY OF OTHER DISEASES OF THE CIRCULATORY SYSTEM SNOMED Code(s): 874792311 (7) Presence of stent in LAD coronary artery Current Visit: No Status: Acute Code(s): Z95.5 - PRESENCE OF CORONARY ANGIOPLASTY IMPLANT AND GRAFT SNOMED Code(s): 470259196061835 (8) Presence of stent in LAD coronary artery Current Visit: No Status: Acute Code(s): Z95.5 - PRESENCE OF CORONARY ANGIOPLASTY IMPLANT AND GRAFT SNOMED Code(s): 749025415812021 Hospital course:This is a 44-year-old white female well-known to me. She continues to smoke in spite of the fact that she's had a myocardial infarction in 2003 and multiple coronary artery procedures including a PTCA just November of this year. She reports that she's been having some diarrhea and is feeling off for the past 2 weeks. She reports getting up last night and walked approximately 50 feet when she blacked out and lost consciousness for a few seconds. She is newly found on the floor by her family. She was stiff and sore from contusions to her neck shoulder and hand of the left side. She was not confused. She did not bite her tongue. She had not urinated desiccator self. She says other than a headache, and bruising, and she was okay. She said at home for approximately 30 minutes and then was transported to emergency room. She is since been noted to be hypotensive. She is does take Aldactone, and trust oh, metoprolol, Imdur, furosemide for her coronary artery disease and CHF. Currently she feels better after IV fluids. Her AICD will be interrogated later by cardiology. She currently denies any chest pains pressures or shortness of breath. 01/20/2020 pacemaker interrogated, reported as normal. Borderline hypotension, negative for orthostatic. Complains of chest pain left-sided chest radiating to right-sided chest, upper left neck into the left arm, at rest. Cardiology discussing potential cardiac catheterization. EKG, echo pending. 01/21/2020 currently denies dizziness. Reports fluctuating left-sided radiating chest discomfort. Echo reporting severely impaired LV function, EF 20-25%, mild pulmonary hypertension. Scheduled for cardiac catheterization tomorrow. Declined working with PT today. Vital signs stable. Creatinine 1.07. 01/22/2020 orthostatic vital signs negative.currently reporting no chest discomfort .NPO, scheduled for cardiac catheterization today. Underwent cardiac catheterization reportedly mild in-stent restenosis involving mid RCA, patent stent in the PDA branch of the RCA, left circumflex, ramus intermedius, LAD. Mild in-stent restenosis involving first diagonal branch of the LAD. Maximizing medical treatment recommended /smoking sensation reinforced. Tolerated procedure well. Cleared by cardiology for discharge. Patient is being discharged home in stable condition with guarded prognosis. The impression and plan of care has been dictated as directed. : I performed a history and examination of this patient, discussed the same with the dictator. I agree with the dictator's note ,documented as a scribe. Any additional findings or plans will be noted. Patient Condition at Discharge: Stable Plan - Discharge Summary Discharge Rx Participant: No New Discharge Prescriptions: New Ticagrelor [Brilinta] 90 mg PO BID #60 tab Nitroglycerin Sl Tabs [Nitrostat] 0.4 mg SUBLINGUAL Q5M PRN #25 tab PRN Reason: Chest Pain Continue Aspirin 81 mg PO DAILY #30 chew Omeprazole [PriLOSEC] 40 mg PO DAILY Atorvastatin [Lipitor] 80 mg PO HS Divalproex ER [Depakote ER] 1,000 mg PO DAILY Alendronate Sodium 70 mg PO COHEN Budesonide-Formot 160-4.5 Mcg [Symbicort 160-4.5 Mcg Inhaler] 2 puff INHALATION RT-BID tiZANidine [Zanaflex] 4 mg PO TID PRN PRN Reason: Pain Gabapentin [Neurontin] 300 mg PO TID Escitalopram [Lexapro] 10 mg PO HS HYDROcodone/APAP 7.5-325MG [[place] 7.5-325] 1 tab PO TID PRN PRN Reason: Pain Metoprolol Tartrate [Lopressor] 25 mg PO TID Albuterol Sulfate [Ventolin HFA] 2 puff INHALATION RT-Q6H PRN PRN Reason: Shortness Of Breath Umeclidinium [place] [Incruse Ellipta] 1 puff INHALATION RT-DAILY hydrOXYzine PAMOATE [Vistaril] 50 mg PO Q6HR PRN #30 cap PRN Reason: Anxiety Spironolactone [Aldactone] 25 mg PO BID Isosorbide Mononitrate [Isosorbide Mononitrate ER] 30 mg PO DAILY Vitamin B Complex 1 cap PO DAILY Furosemide [Lasix] 60 mg PO DAILY Albuterol Nebulized [Ventolin Nebulized] 2.5 mg INHALATION RT-Q4H PRN PRN Reason: Shortness Of Breath Sacubitril/Valsartan [Entresto 49 mg-51 mg Tablet] 1 tab PO BID Discontinued Nitroglycerin Sl Tabs [Nitrostat] 0.4 mg SUBLINGUAL Q5M PRN #0 tab PRN Reason: Chest Pain Ticagrelor [Brilinta] 60 mg PO BID Discharge Medication List Aspirin 81 mg PO DAILY #30 chew 08/16/16 [Rx] Omeprazole [PriLOSEC] 40 mg PO DAILY 11/29/16 [History] Atorvastatin [Lipitor] 80 mg PO HS 11/30/16 [History] Divalproex ER [Depakote ER] 1,000 mg PO DAILY 02/06/17 [History] Alendronate Sodium 70 mg PO COHEN 06/29/17 [History] Albuterol Sulfate [Ventolin HFA] 2 puff INHALATION RT-Q6H PRN 09/25/19 [History] Budesonide-Formot 160-4.5 Mcg [Symbicort 160-4.5 Mcg Inhaler] 2 puff INHALATION RT-BID 09/25/19 [History] Escitalopram [Lexapro] 10 mg PO HS 09/25/19 [History] Gabapentin [Neurontin] 300 mg PO TID 09/25/19 [History] HYDROcodone/APAP 7.5-325MG [[place] 7.5-325] 1 tab PO TID PRN 09/25/19 [History] Metoprolol Tartrate [Lopressor] 25 mg PO TID 09/25/19 [History] Umeclidinium [place] [Incruse Ellipta] 1 puff INHALATION RT-DAILY 09/25/19 [History] tiZANidine [Zanaflex] 4 mg PO TID PRN 09/25/19 [History] hydrOXYzine PAMOATE [Vistaril] 50 mg PO Q6HR PRN #30 cap 09/28/19 [Rx] Isosorbide Mononitrate [Isosorbide Mononitrate ER] 30 mg PO DAILY 11/19/19 [History] Spironolactone [Aldactone] 25 mg PO BID 11/19/19 [History] Vitamin B Complex 1 cap PO DAILY 11/19/19 [History] Albuterol Nebulized [Ventolin Nebulized] 2.5 mg INHALATION RT-Q4H PRN 01/19/20 [History] Furosemide [Lasix] 60 mg PO DAILY 01/19/20 [History] Sacubitril/Valsartan [Entresto 49 mg-51 mg Tablet] 1 tab PO BID 01/19/20 [History] Nitroglycerin Sl Tabs [Nitrostat] 0.4 mg SUBLINGUAL Q5M PRN #25 tab 01/23/20 [Rx] Ticagrelor [Brilinta] 90 mg PO BID #60 tab 01/23/20 [Rx] Follow up Appointment(s)/Referral(s): John Montoya MD [STAFF PHYSICIAN] - 01/31/20 4:30 pm [facility], [NON-STAFF] - Brenden Rodriguez MD [Primary Care Provider] - 01/29/20 10:30 am (With REGGIE Muir) Patient Instructions/Handouts: After Radial Heart Catheterization (GEN)
--- NOTE | 2020-01-27 10:26 | CDI ---
Documentation Clarification Form Date: 01/27/20 From: Tiana King CCS Phone: If you have a question about this query, please contact Lu Garza, Mash Filter Operator at [phone] between 8am and 5pm. Admit Date: 01/20/20 Discharge Date: 01/23/20 Patient Name: Sahara Livingston Visit Number: [id number] ATTENTION: The Clinical Documentation Specialists (CDI) and [facility] Coding Staff appreciate your assistance in clarifying documentation. Please respond to the clarification below the line at the bottom and electronically sign. The CDI & [facility] Coding staff will review the response and follow-up if needed. Please note: Queries are made part of the Legal Health Record. If you have any questions, please contact the author of this message via ITS. Dear Dr. Hopoer, The patient presented with the following syncope. Consult and PNs document: weakness and dizziness with subsequent syncope, likely related to dehydration and hypotension.Blood pressure on arrival 85/60. DS documents: Currently she feels better after IV fluids History/Risk Factors: HHD, CHF, COPD, PHTN, CAD Clinical Indicators: Syncope Vital Signs: BP 85/58, RR 18, VA 78, O2 Sat 97 Treatment: IV fluids 0.9% 1,000 ml IV 75 then 60 mls/hr Consults: Sharon In your professional opinion, can you please clarify if the syncope is due to? Syncope due to hypotension Syncope due to dehydration Syncope cause unknown Other, please specify Unable to determine cause unknown MTDD
== END 2020-01-23 11:47 | disposition home health service (06) | DRG 287 ==
LOC: EC 23:42 → 3SCARD 01-19 01:52 → OBSVTOIN 01-20 15:11 → 3SCARD 01-20 20:34
PROVIDERS: ADMIT Family Medicine; ATTEND Family Medicine
PROC: B2111ZZ Fluoroscopy of Multiple Coronary Arteries using Low Osmolar Contrast (ICD-10-PCS; 2020-01-22)
PROC: 4A023N7 Measurement of Cardiac Sampling and Pressure, Left Heart, Percutaneous Approach (ICD-10-PCS; principal; 2020-01-22 13:30)
DX: R55 Syncope and collapse (principal); T82.855A Stenosis of coronary artery stent, initial encounter; I50.22 Chronic systolic (congestive) heart failure; Z11.59 Encounter for screening for other viral diseases; I27.29 Other secondary pulmonary hypertension; I11.0 Hypertensive heart disease with heart failure; I95.9 Hypotension, unspecified; J44.9 Chronic obstructive pulmonary disease, unspecified; F31.9 Bipolar disorder, unspecified; G89.29 Other chronic pain; M54.9 Dorsalgia, unspecified; M79.7 Fibromyalgia; I25.10 Atherosclerotic heart disease of native coronary artery without angina pectoris; E78.5 Hyperlipidemia, unspecified; M19.90 Unspecified osteoarthritis, unspecified site; K21.9 Gastro-esophageal reflux disease without esophagitis; I25.5 Ischemic cardiomyopathy; M51.36 Other intervertebral disc degeneration, lumbar region; M81.0 Age-related osteoporosis without current pathological fracture; F41.9 Anxiety disorder, unspecified; R00.1 Bradycardia, unspecified; I44.7 Left bundle-branch block, unspecified; F17.210 Nicotine dependence, cigarettes, uncomplicated; S60.222A Contusion of left hand, initial encounter; S40.012A Contusion of left shoulder, initial encounter; S10.93XA Contusion of unspecified part of neck, initial encounter; G43.909 Migraine, unspecified, not intractable, without status migrainosus; Z71.6 Tobacco abuse counseling; E86.0 Dehydration; Y83.1 Surgical operation with implant of artificial internal device as the cause of abnormal reaction of the patient, or of later complication, without mention of misadventure at the time of the procedure; R07.89 Other chest pain; W18.30XA Fall on same level, unspecified, initial encounter; I25.2 Old myocardial infarction; Z79.899 Other long term (current) drug therapy; Z79.51 Long term (current) use of inhaled steroids; Z79.02 Long term (current) use of antithrombotics/antiplatelets; Z79.82 Long term (current) use of aspirin; Z87.01 Personal history of pneumonia (recurrent); Z95.810 Presence of automatic (implantable) cardiac defibrillator; Z87.448 Personal history of other diseases of urinary system; Z87.440 Personal history of urinary (tract) infections; Z95.5 Presence of coronary angioplasty implant and graft; Z87.442 Personal history of urinary calculi; Z98.890 Other specified postprocedural states; Z98.51 Tubal ligation status; Z88.8 Allergy status to other drugs, medicaments and biological substances; Z82.49 Family history of ischemic heart disease and other diseases of the circulatory system; Z81.8 Family history of other mental and behavioral disorders; Z83.438 Family history of other disorder of lipoprotein metabolism and other lipidemia; Z80.8 Family history of malignant neoplasm of other organs or systems; Z82.3 Family history of stroke
CPT/HCPCS: 36415; 70450; 71046; 72125; 80048; 80053; 81003; 83735; 84443; 84484; 85025; 85379; 85610; 85730; 93005; 93306; 93458; 94640; 94760; 96361; 96374; 99285

== ENCOUNTER → 2020-02-26 | Outpatient (CLI) | payer MEDICARE ==
--- NOTE | 2020-02-26 10:38 | XR ---
EXAMINATION TYPE: XR chest 2V DATE OF EXAM: 02/26/2020 COMPARISON: CTA chest April 05, 2019. Prior chest x-ray January 19, 2020 and older x-rays. HISTORY: History of COPD with intercostal pain. TECHNIQUE: Frontal and lateral views of the chest are obtained. FINDINGS: There is no new suspicious focal air space opacity, pleural effusion, or pneumothorax seen bilaterally. The cardiac silhouette size remains within normal limits with single lead pacemaker/AI CD redemonstrated. The osseous structures are intact. IMPRESSION: No acute cardiopulmonary process on current study. No significant change from most recen t x-ray.
== END | disposition home or self-care (01) ==
LOC: RADXRMAIN 10:05
PROVIDERS: ATTEND Family Medicine
DX: R07.82 Intercostal pain (principal)
CPT/HCPCS: 71046

== ENCOUNTER 2020-04-27 12:34 | Observation (INO) | payer MEDICARE ==
[2020-04-27] MEDS ORDERED: NITROGLYCERIN OINT 1 INCH/GM PACKET TOPICAL STA (13:03)
[2020-04-27] MEDS ORDERED: ASPIRIN 81 MG PO STA (13:03)
[2020-04-27 13:23] LABS: Basophils % (A) 1 %; Eosinophils # (A) 0.3 k/uL (0-0.7); Eosinophils % (A) 4 %; HCT 39.2 % (34.0-46.0); HGB 12.8 gm/dL (11.4-16.0); Lymphocytes # (A) 2.3 k/uL (1.0-4.8); Lymphocytes % (A) 38 %; MCH 30.6 pg (25.0-35.0); MCHC 32.7 g/dL (31.0-37.0); MCV 93.7 fL (80.0-100.0); Mean Platelet Volume 7.9; Monocytes # (A) 0.4 k/uL (0-1.0); Monocytes % (A) 6 %; Neutrophils % (A) 49 %; Platelet Count 225 k/uL (150-450); RBC 4.19 m/uL (3.80-5.40); RDW 15.6 % (11.5-15.5)
--- NOTE | 2020-04-27 13:31 | XR ---
EXAMINATION TYPE: XR chest 2V DATE OF EXAM: 04/27/2020 COMPARISON: February 26, 2020 HISTORY: Chest pain TECHNIQUE: Frontal and lateral views of the chest are obtained. FINDINGS: There is no focal air space opacity. No evidence for pneumothorax. No pleural effusion. The cardiac silhouette size is within normal limits. The osseous structures are grossly intact. IMPRESSION: 1. No acute cardiopulmonary process.
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
[2020-04-27 13:39] LABS: ALT 14 U/L (4-34); AST 21 U/L (14-36); African American GFR (CKD) >90 (>60 ml/min/1.73 sqM); Albumin 3.8 g/dL (3.5-5.0); Alkaline Phosphatase 71 U/L (38-126); Anion Gap 6 mmol/L; Blood Urea Nitrogen 11 mg/dL (7-17); Calcium 9.3 mg/dL (8.4-10.2); Carbon Dioxide 26 mmol/L (22-30); Chloride 106 mmol/L (98-107); Glucose 100 mg/dL (74-99); Magnesium 1.8 mg/dL (1.6-2.3); Non-African American GFR(CKD) >90 (>60 ml/min/1.73 sqM); Potassium 4.3 mmol/L (3.5-5.1); Sodium 138 mmol/L (137-145); Total Bilirubin 0.3 mg/dL (0.2-1.3); Total Protein 6.7 g/dL (6.3-8.2)
[2020-04-27 13:41] LABS: INR 0.9 (<1.2); Prothrombin Time 9.5 sec (9.0-12.0)
[2020-04-27 13:57] LABS: Partial Thromboplastin Time 21.1 sec (22.0-30.0)
[2020-04-27] MEDS ORDERED: HEPARIN SODIUM,PORCINE 5,000 UNIT/ML 1 ML VIAL IV ONE (14:20)
[2020-04-27] MEDS ORDERED: NITROGLYCERIN SL TABS 0.4 MG TAB SUBLINGUAL PRN (14:21)
[2020-04-27] MEDS ORDERED: HEPARIN SOD,PORK IN 0.45% NACL 25,000 UNIT in 0.45% NACL 1 250ML.BAG IV SCH (14:30)
[2020-04-27] MEDS ORDERED: MORPHINE SULFATE 2 MG/ML SYRINGE IVP STA (14:33)
[2020-04-27 16:25] VITALS: RESP 16
[2020-04-27] MEDS: NITROGLYCERIN OINT 1 INCH/GM PACKET TOPICAL SCH (20:16)
[2020-04-27 23:14] VITALS: BP 153/101; PULSE 78; TEMP 98.1
[2020-04-28] MEDS: NITROGLYCERIN OINT 1 INCH/GM PACKET TOPICAL SCH (00:18)
[2020-04-28] MEDS ORDERED: ASPIRIN 325 MG TAB PO SCH (09:00)
== END 2020-04-28 00:46 | disposition left against medical advice (07) ==
LOC: EC 12:34 → 3NCARDOBS 14:21
PROVIDERS: ADMIT Family Medicine; ATTEND Family Medicine
DX: I25.110 Atherosclerotic heart disease of native coronary artery with unstable angina pectoris (principal); Z53.29 Procedure and treatment not carried out because of patient's decision for other reasons; I50.9 Heart failure, unspecified; J44.9 Chronic obstructive pulmonary disease, unspecified; M79.7 Fibromyalgia; K21.9 Gastro-esophageal reflux disease without esophagitis; E78.5 Hyperlipidemia, unspecified; I25.2 Old myocardial infarction; M19.90 Unspecified osteoarthritis, unspecified site; M51.36 Other intervertebral disc degeneration, lumbar region; M47.896 Other spondylosis, lumbar region; M81.0 Age-related osteoporosis without current pathological fracture; I25.5 Ischemic cardiomyopathy; G43.909 Migraine, unspecified, not intractable, without status migrainosus; F41.9 Anxiety disorder, unspecified; F31.9 Bipolar disorder, unspecified; F17.200 Nicotine dependence, unspecified, uncomplicated; Z95.5 Presence of coronary angioplasty implant and graft; Z95.810 Presence of automatic (implantable) cardiac defibrillator; Z79.899 Other long term (current) drug therapy; Z79.51 Long term (current) use of inhaled steroids; Z88.1 Allergy status to other antibiotic agents; Z87.01 Personal history of pneumonia (recurrent); Z87.448 Personal history of other diseases of urinary system; Z87.09 Personal history of other diseases of the respiratory system; Z87.440 Personal history of urinary (tract) infections; Z87.442 Personal history of urinary calculi; Z98.890 Other specified postprocedural states; Z98.51 Tubal ligation status; Z87.898 Personal history of other specified conditions; Z82.49 Family history of ischemic heart disease and other diseases of the circulatory system; Z82.69 Family history of other diseases of the musculoskeletal system and connective tissue; Z83.438 Family history of other disorder of lipoprotein metabolism and other lipidemia; Z81.8 Family history of other mental and behavioral disorders; Z80.8 Family history of malignant neoplasm of other organs or systems; Z82.3 Family history of stroke
CPT/HCPCS: 96366 ×2; 96376; 96365; 96375; 99285; 36415; 93005; 83880; 80053; 83735; 84484; 85025; 85610; 85730; 71046; G0378 ×2; J1644 ×2; J2270

== ENCOUNTER → 2020-06-01 | Outpatient (CLI) | payer MEDICARE ==
[2020-06-01 15:48] LABS: HCT 44.6 % (34.0-46.0); MCH 31.7 pg (25.0-35.0); MCHC 33.7 g/dL (31.0-37.0); MCV 94.2 fL (80.0-100.0); Mean Platelet Volume 7.6; Platelet Count 296 k/uL (150-450); RBC 4.73 m/uL (3.80-5.40); RDW 14.5 % (11.5-15.5); WBC 9.3 k/uL (3.8-10.6)
[2020-06-01 15:57] LABS: Potassium 4.3 mmol/L (3.5-5.1)
== END | disposition home or self-care (01) ==
LOC: LABPAT 14:15
PROVIDERS: ATTEND Internal Medicine Interventional Cardiology
DX: Z01.818 Encounter for other preprocedural examination (principal); I25.10 Atherosclerotic heart disease of native coronary artery without angina pectoris; R07.9 Chest pain, unspecified
CPT/HCPCS: 36415; 80051; 82565; 84520; 85027

== ENCOUNTER 2020-06-08 11:04 | Day surgery (SDC) | payer MEDICARE ==
[2020-06-04 10:30] VITALS: BMI 36.2
[~2020-06-08 11:04] MED LIST changes: +ASPIRIN 325 MG TAB PO ONE; -ASPIRIN 325 MG TAB PO STA; -ATORVASTATIN 80 MG TAB PO STA; -HYDROmorphone 0.5 MG/0.5 ML SYRINGE IVP STA; -hydrALAZINE HCL 20 MG/ML 1 ML VIAL IVP STA
[2020-06-08 11:39] VITALS: RESP 18; TEMP 98.4
[2020-06-08] MEDS ORDERED: VERAPAMIL 2.5 MG/ML 2 ML AMP ONE (12:13)
[2020-06-08] MEDS ORDERED: LIDOCAINE 1% INJ 10MG/ML (20 ML MDV) ONE (12:13)
[2020-06-08] MEDS ORDERED: HEPARIN SODIUM 1,000 UN/ML (10ML VL) ONE (12:24)
[2020-06-08] MEDS ORDERED: MIDAZOLAM 2 MG/2 ML VIAL IV ONE (12:37)
[2020-06-08] MEDS ORDERED: LIDOCAINE 1% INJ 10MG/ML (20 ML MDV) SQ ONE (12:37)
[2020-06-08] MEDS ORDERED: VERAPAMIL SYRINGE (5 MG/10 ML) INTRAARTER ONE (12:41)
[2020-06-08] MEDS ORDERED: IOPAMIDOL-370 125ML BTL INJ ONE (12:46)
[2020-06-08] MEDS ORDERED: RX INFO: IV CONTRAST WAS GIVEN 1 EACH MISC MISCELLANE PRN (12:59)
[2020-06-08] MEDS ORDERED: SODIUM CHLORIDE 0.9% 1,000 ML IV SCH (13:00)
--- NOTE | 2020-06-08 14:20 | CC ---
CARDIAC CATHETERIZATION REPORT DATE OF SERVICE: 06/08/2020. PERFORMING PHYSICIAN: John Montoay MD. PROCEDURE PERFORMED: Selective right and left coronary angiogram. INDICATION: This is a 44-year-old female patient with history of coronary artery disease and prior triple-vessel stenting as well as severe cardiomyopathy and status post AICD, who was experiencing symptoms of chest pain with exertion concerning for severe underlying coronary artery disease. Because of that, heart catheterization was advised. APPROACH: Right radial artery. COMPLICATION: None. LEVEL OF SEDATION: Moderate with sedation length of 10 minutes. PROCEDURE DESCRIPTION: After obtaining an informed consent, the patient was brought to the cardiac cork slabs sawyer. The right radial artery was cannulated using micropuncture technique, the micropuncture wire passed easily, then I placed a 6-Georgian sheath at the right radial artery. After that, I gave the patient 2 mg of verapamil IA and 10,000 units of heparin IV. Selective right and left coronary angiogram performed using JR4 and JL3.5 catheters. Left heart catheterization was not performed. SELECTIVE CORONARY ANGIOGRAM: 1. The right coronary artery is a large caliber vessel and it is a dominant vessel. The RCA is stented proximally with mild in-stent restenosis. The mid RCA is stented with intermediate in-stent restenosis appeared to be in the range of 40% to 50%. The RCA distally appeared to be normal and bifurcates into PDA and PLV branches both appeared to have mild disease only. 2. The left main is angiographically normal it bifurcates into left circumflex and ramus intermedius and left anterior descending artery. 3. The left circumflex is a large caliber vessel, it is a nondominant vessel. The proximal left circumflex is stented and the stent is patent. The mid left circumflex appeared to be normal and the left circumflex distally is normal. 4. The ramus intermedius is a large caliber vessel with a stent in it with when the stent seems to be patent. 5. The LAD, the proximal LAD is stented with mild to moderate in-stent restenosis. The mid LAD is stented as well with mild in-stent restenosis. The LAD distally appeared to be normal. The LAD gives rise into a medium-sized diagonal branch which is stented with severe in-stent restenosis, but the diagonal is only 2 mm in diameter. CONCLUSION: 1. Intermediate in-stent restenosis involving the RCA. 2. Intermediate in-stent restenosis involving the LAD. 3. Patent stent in the left circumflex coronary artery. Given the above anatomy, I recommended maximized medical treatment and risk factors modifications and follow up with the patient. SHWETA / LISANDRAN: [id number] /
--- NOTE | 2020-06-08 14:20 | LTR ---
DATE OF SERVICE: 06/08/2020 RE: Sahara Denise Dear Dr. Rodriguez; Mr. Sahara Denise underwent today heart catheterization and that revealed patent triple-vessel stenting. I want to thank you for allowing us to participate in his care and please do not hesitate to call if any question or concerns. Sincerely, MD SHWETA Jaquez / THU: [id number] /
[2020-06-08 16:44] VITALS: BP 104/58; PULSE 54
[2020-06-08] MEDS ORDERED: ACETAMINOPHEN TAB 325 MG TAB PO ONE (17:15)
== END 2020-06-08 17:50 | disposition home or self-care (01) ==
LOC: CATHCVL 11:04
PROVIDERS: ATTEND Internal Medicine Interventional Cardiology
DX: T82.855A Stenosis of coronary artery stent, initial encounter (principal); I25.110 Atherosclerotic heart disease of native coronary artery with unstable angina pectoris; I25.5 Ischemic cardiomyopathy; I10 Essential (primary) hypertension; E78.00 Pure hypercholesterolemia, unspecified; I25.2 Old myocardial infarction; E78.2 Mixed hyperlipidemia; F31.9 Bipolar disorder, unspecified; F17.210 Nicotine dependence, cigarettes, uncomplicated; Z95.810 Presence of automatic (implantable) cardiac defibrillator; Z79.82 Long term (current) use of aspirin; Z79.51 Long term (current) use of inhaled steroids; Z79.02 Long term (current) use of antithrombotics/antiplatelets; Z79.899 Other long term (current) drug therapy; Z88.1 Allergy status to other antibiotic agents
CPT/HCPCS: 93454; C1769; C1894; J2250; J2001; J1644; Q9967

== ENCOUNTER → 2021-09-08 | Outpatient (CLI) | payer MEDICARE ==
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
--- NOTE | 2021-09-09 01:32 | CT ---
EXAMINATION TYPE: CT lumbar spine wo con DATE OF EXAM: 09/08/2021 4:51 PM COMPARISON: CT dated 05/15/2018. HISTORY: Disc displacement, lower back pain from fall CT DLP: 1284.70 mGycm Automated exposure control for dose reduction was used. Technique: Unenhanced CT of the lumbar spine was performed. Bone and soft tissue window settings are submitted as well as coronal and sagittal reconstructions. FINDINGS: Preserved lumbar lordosis. Minimal retrolisthesis of L5 over S1, likely degenerative. No definite dorothy tebral body collapse or acute displaced fracture. Tiny multilevel opposing endplate osteophytosis mos t evident at L4-5 and L5-S1 levels. Degenerated L4-5 and L5-S1 discs. Subchondral sclerotic changes a re seen at L5-S1 level. Bilateral L5-S1 facet osteoarthropathy. L1-L2: No significant disc disease, central spinal canal stenosis or neuroforaminal stenosis. L2-L3: No significant disc disease, central spinal canal stenosis or neuroforaminal stenosis. L3-L4: Mild diffuse posterior disc bulge without significant central spinal canal stenosis or neurofo raminal stenosis. L4-L5: Degenerated disc with vacuum phenomenon, central posterior disc calcification and diffuse post erior disc bulge, more inclined to the right side, causing mild central spinal canal stenosis and mil d bilateral neuroforaminal stenosis. Possible indentation of the right L4 nerve root in extraforamina l location. L5-S1: Degenerated disc with vacuum phenomenon and posterior disc bulge, associated with posterior os teophytosis and bilateral facet osteoarthropathy, causing no significant central spinal canal stenosi s and moderate to severe bilateral neuroforaminal stenosis, compressing the corresponding L5 nerve ro ot Scattered arterial atherosclerotic calcifications. 5 mm nonobstructing stone is seen at the mid pole of the right kidney. Degenerative changes of the visualized portion of sacroiliac joints. No paraspin al lesion. IMPRESSION: Marked L4-5 and L5-S1 DDD as detailed above, please correlate clinically. Other incidental findings a s described above.
== END | disposition home or self-care (01) ==
LOC: RADCTMAIN 15:46
PROVIDERS: ATTEND Psychiatry & Neurology Neurology
DX: S09.90XA Unspecified injury of head, initial encounter (principal); M51.37 Other intervertebral disc degeneration, lumbosacral region; M47.817 Spondylosis without myelopathy or radiculopathy, lumbosacral region; W19.XXXA Unspecified fall, initial encounter
CPT/HCPCS: 70450; 72131

== ENCOUNTER → 2021-11-08 | Outpatient (CLI) | payer MEDICARE ==
[2021-11-08 17:22] LABS: INR 0.9 (<1.2); Partial Thromboplastin Time 26.6 sec (22.0-30.0); Prothrombin Time 10.2 sec (9.0-12.0)
--- NOTE | 2021-11-08 21:23 | XR ---
EXAMINATION TYPE: XR chest 2V DATE OF EXAM: 11/08/2021 COMPARISON: X-ray dated 01 Dec 2019 HISTORY: Presurgical TECHNIQUE: Frontal and lateral views of the chest are obtained. FINDINGS: Grossly unremarkable lungs. No pleural effusion or pneumothorax. Slightly increased cardiac transvers e diameter. Left chest wall single lead pacemaker, unchanged in position. No gross aggressive bone le juan a. IMPRESSION: No acute pulmonary abnormality identified.
[2021-11-08 22:50] LABS: Basophils # (A) 0.07 X 10*3/uL (0.00-0.10); Basophils % (A) 0.9 %; Eosinophils # (A) 0.07 X 10*3/uL (0.04-0.35); Eosinophils % (A) 0.9 %; HCT 43.2 % (37.2-46.3); HGB 14.2 g/dL (12.0-15.0); Immature Grans, Automated 0.1 %; Lymphocytes # (A) 2.12 X 10*3/uL (0.90-5.00); Lymphocytes % (A) 26.5 %; MCH 30.5 pg (27.0-32.0); MCHC 32.9 g/dL (32.0-37.0); MCV 92.9 fL (80.0-97.0); Mean Platelet Volume 10.4 fL (9.5-12.2); Monocytes # (A) 0.47 X 10*3/uL (0.20-1.00); Monocytes % (A) 5.9 %; NRBC Per 100 WBC 0 /100 WBCS (0.0-0.0); Neutrophils # (A) 5.26 X 10*3/uL (1.80-7.70); Neutrophils % (A) 65.7 %; Platelet Count 281 X 10*3/uL (140-440); RBC 4.65 X 10*6/uL (4.10-5.20); RDW 14.5 % (11.5-14.5)
[2021-11-08 23:50] LABS: African American GFR (CKD) 88.9 (60.0-200.0); Albumin 4.2 g/dL (3.8-4.9); Albumin/Globulin Ratio 1.24 (1.60-3.17); Anion Gap 10.9 mmol/L (10.00-18.00); BUN/Creat Ratio 15.67 Ratio (12.00-20.00); Blood Urea Nitrogen 14.1 mg/dL (9.0-27.0); Calcium 9.4 mg/dL (8.7-10.3); Carbon Dioxide 27.1 mmol/L (20.0-27.5); Globulin 3.4 g/dL (1.6-3.3); Non-African American GFR(CKD) 76.7 (60.0-200.0); Potassium 4.2 mmol/L (3.5-5.5); Total Bilirubin 0.3 mg/dL (0.30-1.20); Total Protein 7.6 g/dL (6.2-8.2)
[2021-11-09 01:11] LABS: Appearance,Urine Cloudy (Clear); Bacteria,Urine 2+ /HPF (None Seen); Bilirubin,Urine Negative (Negative); Blood,Urine Negative (Negative); Color,Urine Dark Yellow (Yellow); Ketones,Urine Negative (Negative); Nitrite,Urine Negative (Negative); Specific Gravity,Urine 1.022 (1.001-1.030)
== END | disposition home or self-care (01) ==
LOC: LABWHC1 15:59
PROVIDERS: ATTEND Neurological Surgery
DX: M54.42 Lumbago with sciatica, left side (principal)
CPT/HCPCS: 36415; 71046; 80053; 81001; 83036; 85025; 85610; 85730; 93005

== ENCOUNTER → 2022-05-18 | Outpatient (CLI) | payer MEDICARE ==
[2022-05-18 16:01] LABS: HCT 41.5 % (37.2-46.3); MCH 30.4 pg (27.0-32.0); MCHC 33.7 g/dL (32.0-37.0); Mean Platelet Volume 10.5 fL (9.5-12.2); NRBC Per 100 WBC 0 /100 WBCS (0.0-0.0); Platelet Count 293 X 10*3/uL (140-440); RBC 4.61 X 10*6/uL (4.10-5.20); RDW 14.7 % (11.5-14.5); WBC 10.42 X 10*3/uL (4.50-10.00)
[2022-05-18 17:25] LABS: ALT <5 U/L (8-44); AST 15 U/L (13-35); African American GFR (CKD) 78.6 (60.0-200.0); Albumin 3.8 g/dL (3.8-4.9); Albumin/Globulin Ratio 1.15 (1.60-3.17); Alkaline Phosphatase 85 U/L (41-126); BUN/Creat Ratio 11.75 Ratio (12.00-20.00); Blood Urea Nitrogen 11.7 mg/dL (9.0-27.0); Calcium 9.1 mg/dL (8.7-10.3); Carbon Dioxide 28.4 mmol/L (20.0-27.5); Chloride 95 mmol/L (96-109); Chol/HDL Ratio 6.18 Ratio; Globulin 3.3 g/dL (1.6-3.3); Glucose 89 mg/dL (70-110); LDL Cholesterol,Calculated 142.3 mg/dL (0.0-131.0); Non-African American GFR(CKD) 67.8 (60.0-200.0); Potassium 3.4 mmol/L (3.5-5.5); Sodium 135 mmol/L (135-145); Total Protein 7.2 g/dL (6.2-8.2)
[2022-05-18 17:57] LABS: Basophils # (M) 0.31 X 10*3/uL (0.00-0.10); Eosinophils # (M) 0.31 X 10*3/uL (0.04-0.35); Lymphocytes # (M) 4.38 X 10*3/uL (0.90-5.00); Monocytes # (M) 0.63 X 10*3/uL (0.20-1.00); Neutrophils # (M) 4.79 X 10*3/uL (2.00-8.90); Neutrophils % (M) 46 %
== END | disposition home or self-care (01) ==
LOC: LABWHC1 09:50
PROVIDERS: ATTEND Family Medicine
DX: I50.22 Chronic systolic (congestive) heart failure (principal)
CPT/HCPCS: 36415; 80053; 80061; 85025

== ENCOUNTER 2022-08-05 17:51 | Emergency (ER) | payer MEDICARE ==
[2022-08-05 18:00] VITALS: RESP 18; TEMP 97
[2022-08-05] MEDS ORDERED: IBUPROFEN 800 MG TAB PO STA (18:28)
[2022-08-05] MEDS ORDERED: KETOROLAC 15 MG/ML 1 ML VIAL IM STA (18:37)
[2022-08-05] MEDS ORDERED: MORPHINE SULFATE 4 MG/ML SYRINGE IM STA (18:37)
--- NOTE | 2022-08-05 19:46 | XR ---
EXAMINATION TYPE: XR knee complete LT DATE OF EXAM: 08/05/2022 COMPARISON: NONE HISTORY: Knee pain TECHNIQUE: 3 views FINDINGS: There is no fracture nor dislocation. Joint spaces are normal. There is small knee joint ef fusion. IMPRESSION: Small joint effusion. No fracture seen
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
[2022-08-05 20:27] VITALS: BP 96/62; PULSE 60
== END 2022-08-05 20:27 | disposition home or self-care (01) ==
LOC: EC 17:51
DX: S83.92XA Sprain of unspecified site of left knee, initial encounter (principal); I11.0 Hypertensive heart disease with heart failure; I25.10 Atherosclerotic heart disease of native coronary artery without angina pectoris; I25.2 Old myocardial infarction; I50.9 Heart failure, unspecified; J44.9 Chronic obstructive pulmonary disease, unspecified; K21.9 Gastro-esophageal reflux disease without esophagitis; M19.90 Unspecified osteoarthritis, unspecified site; E78.5 Hyperlipidemia, unspecified; F31.9 Bipolar disorder, unspecified; F41.9 Anxiety disorder, unspecified; F12.90 Cannabis use, unspecified, uncomplicated; Z79.82 Long term (current) use of aspirin; Z79.899 Other long term (current) drug therapy; Z87.891 Personal history of nicotine dependence; W10.9XXA Fall (on) (from) unspecified stairs and steps, initial encounter
CPT/HCPCS: 73562; 99283; 96372 ×2; L1830 ×2; J2270; J1885

== ENCOUNTER → 2022-10-12 | Outpatient (CLI) | payer MEDICARE ==
[2022-10-12 23:06] LABS: Basophils # (A) 0.06 X 10*3/uL (0.00-0.10); Eosinophils # (A) 0.15 X 10*3/uL (0.04-0.35); Eosinophils % (A) 2.6 %; HCT 44.9 % (37.2-46.3); HGB 14.5 g/dL (12.0-15.0); Immature Grans, Automated 0.2 %; Lymphocytes # (A) 2.01 X 10*3/uL (0.90-5.00); Lymphocytes % (A) 34.5 %; MCHC 32.3 g/dL (32.0-37.0); MCV 92.8 fL (80.0-97.0); Mean Platelet Volume 10.1 fL (9.5-12.2); Monocytes # (A) 0.59 X 10*3/uL (0.20-1.00); Monocytes % (A) 10.1 %; NRBC Per 100 WBC 0 /100 WBCS (0.0-0.0); Neutrophils % (A) 51.6 %; Platelet Count 290 X 10*3/uL (140-440); RBC 4.84 X 10*6/uL (4.10-5.20); RDW 15.1 % (11.5-14.5); WBC 5.82 X 10*3/uL (4.50-10.00)
[2022-10-13 00:25] LABS: African American GFR (CKD) 85.9 (60.0-200.0); Albumin/Globulin Ratio 1.32 (1.60-3.17); Anion Gap 8.4 mmol/L (10.00-18.00); BUN/Creat Ratio 11.09 Ratio (12.00-20.00); Blood Urea Nitrogen 10.2 mg/dL (9.0-27.0); Calcium 9.4 mg/dL (8.7-10.3); Carbon Dioxide 35.6 mmol/L (20.0-27.5); Magnesium 2.2 mg/dL (1.5-2.4); Non-African American GFR(CKD) 74.2 (60.0-200.0); Potassium 5.3 mmol/L (3.5-5.5); Total Bilirubin 0.2 mg/dL (0.30-1.20)
== END | disposition home or self-care (01) ==
LOC: LABWHC1 16:25
PROVIDERS: ATTEND Family Medicine
DX: Z00.00 Encounter for general adult medical examination without abnormal findings (principal); Z12.31 Encounter for screening mammogram for malignant neoplasm of breast; I11.0 Hypertensive heart disease with heart failure; I50.22 Chronic systolic (congestive) heart failure; Z72.0 Tobacco use; I25.119 Atherosclerotic heart disease of native coronary artery with unspecified angina pectoris; F31.30 Bipolar disorder, current episode depressed, mild or moderate severity, unspecified; J44.9 Chronic obstructive pulmonary disease, unspecified; E78.2 Mixed hyperlipidemia
CPT/HCPCS: 36415; 80053; 83735; 83880; 85025; 86803

== ENCOUNTER 2022-10-24 20:48 | Emergency (ER) | payer MEDICARE ==
[2022-10-24 21:12] VITALS: RESP 20; TEMP 98.1
--- NOTE | 2022-10-24 22:29 | XR ---
EXAMINATION TYPE: XR chest 2V DATE OF EXAM: 10/24/2022 9:54 PM COMPARISON: Chest radiographs from 11/08/2021 TECHNIQUE: XR chest 2V Frontal and lateral views of the chest. CLINICAL INDICATION:Female, 47 years old with history of pain after fall; FINDINGS: Lungs/Pleura: There is no evidence of pleural effusion, focal consolidation, or pneumothorax. Pulmonary vascularity: Unremarkable. Heart/mediastinum: Cardiomediastinal silhouette is enlarged and stable. Single-lead cardiac conductio n device overlying the left hemithorax with lead projecting over the right ventricle. Musculoskeletal: No acute osseous pathology. IMPRESSION: 1. No obvious fracture identified. 2. No acute cardiopulmonary disease/process. 3. Stable cardiomegaly.
[2022-10-25 04:07] VITALS: PULSE 60
[2022-10-25] MEDS ORDERED: KETOROLAC 15 MG/ML 1 ML VIAL IM STA (04:45)
[2022-10-25] MEDS ORDERED: ORPHENADRINE 30 MG/ML 2 ML VIAL IM STA (04:45)
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
[2022-10-25 05:14] VITALS: BP 109/91
[2022-10-25] MEDS ORDERED: LIDOCAINE 5% PATCH TOPICAL SCH (09:00)
== END 2022-10-25 05:23 | disposition home or self-care (01) ==
LOC: EC 20:48
DX: S29.011A Strain of muscle and tendon of front wall of thorax, initial encounter (principal); E78.5 Hyperlipidemia, unspecified; I11.0 Hypertensive heart disease with heart failure; I50.9 Heart failure, unspecified; I25.10 Atherosclerotic heart disease of native coronary artery without angina pectoris; I25.2 Old myocardial infarction; J44.9 Chronic obstructive pulmonary disease, unspecified; K21.9 Gastro-esophageal reflux disease without esophagitis; M19.90 Unspecified osteoarthritis, unspecified site; F31.9 Bipolar disorder, unspecified; F41.9 Anxiety disorder, unspecified; Z87.891 Personal history of nicotine dependence; F12.90 Cannabis use, unspecified, uncomplicated; Z88.8 Allergy status to other drugs, medicaments and biological substances; Z79.899 Other long term (current) drug therapy; Z79.51 Long term (current) use of inhaled steroids; W01.0XXA Fall on same level from slipping, tripping and stumbling without subsequent striking against object, initial encounter; Y92.89 Other specified places as the place of occurrence of the external cause
CPT/HCPCS: 71046; 99284; 96372 ×2; J2360; J1885

== ENCOUNTER → 2022-12-08 | Outpatient (CLI) | payer MEDICARE ==
[2022-12-08 20:56] LABS: Basophils # (A) 0.06 X 10*3/uL (0.00-0.10); Basophils % (A) 0.8 %; Eosinophils # (A) 0.24 X 10*3/uL (0.04-0.35); Eosinophils % (A) 3.3 %; HCT 40.2 % (37.2-46.3); HGB 13.5 g/dL (12.0-15.0); Immature Grans, Automated 0.1 %; Lymphocytes # (A) 3.25 X 10*3/uL (0.90-5.00); Lymphocytes % (A) 44.1 %; MCH 30.7 pg (27.0-32.0); MCHC 33.6 g/dL (32.0-37.0); MCV 91.4 fL (80.0-97.0); Mean Platelet Volume 10.3 fL (9.5-12.2); Monocytes # (A) 0.65 X 10*3/uL (0.20-1.00); Monocytes % (A) 8.8 %; NRBC Per 100 WBC 0 /100 WBCS (0.0-0.0); Neutrophils # (A) 3.16 X 10*3/uL (1.80-7.70); Neutrophils % (A) 42.9 %; Platelet Count 300 X 10*3/uL (140-440); RDW 15.4 % (11.5-14.5); WBC 7.37 X 10*3/uL (4.50-10.00)
[2022-12-08 21:20] LABS: Anion Gap 13.3 mmol/L (10.00-18.00); Carbon Dioxide 29.7 mmol/L (20.0-27.5); Potassium 4.1 mmol/L (3.5-5.5)
== END | disposition home or self-care (01) ==
LOC: LABPAT 14:52
PROVIDERS: ATTEND Orthopaedic Surgery
DX: Z01.812 Encounter for preprocedural laboratory examination (principal); M23.92 Unspecified internal derangement of left knee; I21.19 ST elevation (STEMI) myocardial infarction involving other coronary artery of inferior wall; R94.31 Abnormal electrocardiogram [ECG] [EKG]
CPT/HCPCS: 80051; 85025; 93005

== ENCOUNTER 2022-12-15 11:42 | Day surgery (SDC) | payer MEDICARE ==
[2022-12-09 11:36] VITALS: BMI 36.6
--- NOTE | 2022-12-14 22:05 | HP ---
HISTORY AND PHYSICAL DATE OF SURGERY: 12/15/2022. HISTORY OF PRESENT ILLNESS: Sahara Denise is a 47-year-old patient seen with progressive left knee pain. We discussed options. She elected to proceed with left knee arthroscopy. Consent was obtained. Cardiac clearance by Dr. Montoya. PAST MEDICAL HISTORY: Cardiovascular disease, hypertension, hyperlipidemia, chronic back pain. PAST SURGICAL HISTORY: Cardiac catheterization, implanted defibrillator. DAILY MEDICATIONS: 1. Atorvastatin. 2. Gabapentin. 3. Nitroglycerin. 4. Prilosec. 5. Spironolactone. 6. Aspirin. ALLERGIES: None. SOCIAL HISTORY: Smokes cigarettes. PHYSICAL EVALUATION OF THE LEFT KNEE: Range of motion is 0 to 130 degrees. Mild effusion. Tenderness, medial joint line. Positive medial Lorraine's. Ligaments are stable. Hip rotation is without pain. Distal neurovascular exam is intact. RADIOGRAPHS: Left knee radiographs revealed mild osteoarthritis. IMPRESSION: 1. Internal derangement of left knee with medial meniscal tear. 2. Hypertension. 3. Hyperlipidemia. 4. Cardiovascular disease. PLAN: Left knee arthroscopy with partial medial meniscectomy and debridement. MMODL / IJN: [id number] /
[2022-12-15] MEDS ORDERED: ONDANSETRON 4 MG/2 ML VIAL IVP ONE (12:17)
[2022-12-15] MEDS ORDERED: LIDOCAINE 1% (10MG/ML) FOR IV START INTRADERMA PRN (12:17)
[2022-12-15] MEDS ORDERED: DEXAMETHASONE SOD PHOSPHATE 4 MG/ML 1 ML VIAL IV ONE (12:17)
[2022-12-15] MEDS ORDERED: HYDROmorphone 0.5 MG/0.5 ML SYRINGE IVP PRN (12:17)
[2022-12-15] MEDS ORDERED: MIDAZOLAM 2 MG/2 ML VIAL IV PRN (12:17)
[2022-12-15] MEDS ORDERED: LACTATED RINGERS 1,000 ML IV SCH (12:17)
[2022-12-15 12:35] VITALS: TEMP 97.8
[2022-12-15] MEDS ORDERED: ALBUTEROL INHALER 60 PUFF/8 GM INHALER (MHU) INHALATION ONE (13:49)
[2022-12-15] MEDS ORDERED: ETOMIDATE 2 MG/ML 10 ML VIAL ONE (13:49)
[2022-12-15] MEDS ORDERED: fentaNYL (PF) 50 MCG/ML 2 ML AMP ONE (13:49)
[2022-12-15] MEDS ORDERED: SUCCINYLCHOLINE CHLORIDE 200 MG/10 ML VIAL IV ONE (13:49)
[2022-12-15] MEDS ORDERED: DEXAMETHASONE SOD PHOSPHATE 4 MG/ML 1 ML VIAL ONE (13:49)
[2022-12-15] MEDS ORDERED: LIDOCAINE 2% INJ 20 MG/ML (2 ML VIAL) ONE (13:49)
[2022-12-15] MEDS ORDERED: BUPIVACAINE (PF) 0.25% 30 ML VIAL SQ ONE ×2 (13:52→14:20)
--- NOTE | 2022-12-15 14:36 | P.OP ---
Date of Procedure: 12/15/22 Preoperative Diagnosis: Internal derangement left knee Postoperative Diagnosis: 1. Tear medial and lateral meniscus left knee 2. Grade 4 chondromalacia medial femoral condyle left knee 3. Reactive synovitis medial, lateral and suprapatellar compartments left knee 4. Grade 2/3 chondromalacia lateral femoral condyle left knee Procedure(s) Performed: 1. Arthroscopic partial medial and lateral meniscectomy left knee 2. Arthroscopic microfracture medial femoral condyle left knee 3. Arthroscopic partial synovectomy medial, lateral and suprapatellar compartments left knee 4. Arthroscopic chondroplasty medial femoral condyle left knee 5. Arthroscopic chondroplasty lateral femoral condyle left knee Anesthesia: LIZZETHA, local Surgeon: Regulo Hugo Estimated Blood Loss (ml): 5 Pathology: none sent Condition: stable Disposition: PACU Indications for Procedure: 47-year-old patient seen with progressive left knee pain. After having treatment options discussed, she elected to proceed with arthroscopy. Operative Findings: See description of procedure Description of Procedure: Patient was taken to the operative suite. Patient underwent a general anesthetic by the department of anesthesia. Patient was given preoperative antibiotics. The left lower extremity was placed in a well-padded arthroscopic leg castillo. The left leg was prepped and draped in the normal sterile orthopedic fashion. A lateral parapatellar and suprapatellar incision was made. Trochars were inserted. Arthroscopy was initiated. Suprapatellar pouch revealed diffuse thick reactive synovitis. The patellofemoral joint appeared to articulate congruently. There was grade 1 chondromalacia of the patella without osteochondral tears.. The scope was guided into the medial gutter. No loose bodies or plica were identified. The scope was then guided into the medial compartment. A medial parapatellar incision was made. Trocar inserted followed by probe. There was a radial tear posterior horn medial meniscus. This area of grade 2/3 chondromalacia medial femoral condyle with large osteochondral flap tears. There was some thick reactive synovitis anteriorly. I performed a partial medial meniscectomy getting down to stable meniscal tissue. I performed a partial synovectomy decompressing the reactive synovitis. I performed a chondroplasty of the medial femoral condyle getting down to stable osteochondral tissue. I did now noted area of grade 4 chondromalacia in the central portion medial femoral condyle measuring approximately 1 cm. I introduced a microfracture awl and performed a microfracture to that area penetrating the bone with resultant bleeding at the microfracture site. The residual meniscus was probed and found to be stable. The residual osteochondral surface was stable. There was good decompression of the synovitis. Scope and probe were then guided into the intercondylar notch. Cruciates were identified, probed and found to be stable. The scope and probe were then guided into lateral compartme nt. Was a radial tear involving the midbody lateral meniscus. There was an area of grade 1/2 chondromalacia lateral femoral condyle with some osteochondral flap tears present. There was some thick reactive synovitis anteriorly. I performed a partial lateral meniscectomy getting down to stable meniscal tissue. I performed a chondroplasty lateral femoral condyle getting down to stable osteochondral tissue. I performed a partial synovectomy decompressing the reactive synovitis. The residual meniscus was stable. There was good decompression of the synovitis. The residual osteochondral surface appears stable again noted grade 2/3 chondromalacia there. The scope was in guided back into the suprapatellar compartment. I introduced a motorized shaver into the suprapatellar compartment. I debrided some piecemeal fragments of meniscus that I encountered. I performed a partial synovectomy. Shaver was removed. There was good decompression of the synovitis. I now took one more look around the entire knee, no residual debris. Instruments were now removed from the joint. The joint was infiltrated with .25% Marcaine. Steri-Strips were applied to the portal sites. Sterile dressings were applied. The patient was placed into a KAYLENE hose. No tourniquet was utilized. The patient was awakened, transferred to a bed and taken to recovery stable satisfactory condition.
[2022-12-15] MEDS ORDERED: HYDROcodone/APAP 7.5-325MG 1 EACH TAB ONE (15:23)
[2022-12-15] MEDS ORDERED: HYDROcodone/APAP 7.5-325MG 1 EACH TAB PO ONE (15:25)
[2022-12-15 16:16] VITALS: BP 98/64; PULSE 74; RESP 17
== END 2022-12-15 16:22 | disposition home or self-care (01) ==
LOC: OR 11:42
PROVIDERS: ATTEND Orthopaedic Surgery
DX: S83.242A Other tear of medial meniscus, current injury, left knee, initial encounter (principal); S83.282A Other tear of lateral meniscus, current injury, left knee, initial encounter; M94.262 Chondromalacia, left knee; M65.862 Other synovitis and tenosynovitis, left lower leg; M17.12 Unilateral primary osteoarthritis, left knee; I25.10 Atherosclerotic heart disease of native coronary artery without angina pectoris; I11.0 Hypertensive heart disease with heart failure; I50.9 Heart failure, unspecified; I25.2 Old myocardial infarction; I25.5 Ischemic cardiomyopathy; E78.5 Hyperlipidemia, unspecified; J44.9 Chronic obstructive pulmonary disease, unspecified; F17.210 Nicotine dependence, cigarettes, uncomplicated; Z79.51 Long term (current) use of inhaled steroids; Z79.82 Long term (current) use of aspirin; Z79.899 Other long term (current) drug therapy; Z95.810 Presence of automatic (implantable) cardiac defibrillator; Z95.5 Presence of coronary angioplasty implant and graft; Z88.8 Allergy status to other drugs, medicaments and biological substances
CPT/HCPCS: 29879; 29880; J0330; J1100; J0690; J2405; J3010; J2001

== ENCOUNTER 2023-02-12 02:21 | Observation (INO) | payer MEDICARE ==
--- NOTE | 2023-02-12 02:57 | ED ---
General Adult HPI - General Chief complaint: Shortness of Breath Stated complaint: Chest Tightness, SOB Time Seen by Provider: 02/12/23 02:31 Source: patient, family, RN notes reviewed, old records reviewed Mode of arrival: wheelchair Limitations: no limitations - History of Present Illness Initial comments: 47-year-old female history of CAD and ischemic cardiomyopathy presenting for evaluation of chest discomfort and dyspnea. She reports bilateral lower extremity swelling. She states she's had a fullness in her abdomen. No fever. She has increased exertional dyspnea. She states that she did have one recent medication change where she was prescribed Robaxin. - Related Data Home Medications Medication Instructions Recorded Confirmed Omeprazole [PriLOSEC] 40 mg PO QAM 11/29/16 12/09/22 Atorvastatin [Lipitor] 80 mg PO HS 11/30/16 12/09/22 Divalproex ER [Depakote ER] 1,000 mg PO 1200 02/06/17 12/09/22 Alendronate Sodium 70 mg PO COHEN 06/29/17 12/09/22 Albuterol Sulfate [Ventolin HFA] 2 puff INHALATION Q6H PRN 09/25/19 12/09/22 HYDROcodone/APAP 7.5-325MG [[place] 1 tab PO BID PRN 09/25/19 12/09/22 7.5-325] Metoprolol Tartrate [Lopressor] 25 mg PO BID 09/25/19 12/09/22 Isosorbide Mononitrate [Isosorbide 60 mg PO 1900 11/19/19 12/09/22 Mononitrate ER] Spironolactone [Aldactone] 25 mg PO BID 11/19/19 12/09/22 Vitamin B Complex 1 cap PO DAILY 11/19/19 12/09/22 Albuterol Nebulized [Ventolin 2.5 mg INHALATION Q4H PRN 01/19/20 12/09/22 Nebulized] Furosemide [Lasix] 60 mg PO BID 01/19/20 12/09/22 Sacubitril/Valsartan [Entresto 49 1 tab PO BID 01/19/20 12/09/22 mg-51 mg Tablet] Calcium Carbonate [Calcium] 600 mg PO DAILY 04/27/20 12/09/22 Cholecalciferol [Vitamin D3 (25 1,000 unit PO DAILY 04/27/20 12/09/22 Mcg = 1000 Iu)] Escitalopram [Lexapro] 20 mg PO HS 04/27/20 12/09/22 Gabapentin 900 mg PO TID 04/27/20 12/09/22 Dilaudid Pain Pump 0.482 mg .ROUTE CONTINUOUS 12/09/22 12/09/22 Fluticasone/Umeclidin/Vilanter 1 puff INHALATION QAM 12/09/22 12/09/22 [Trelegy Ellipta 200-62.5-25] Previous Rx's Medication Instructions Recorded Aspirin 81 mg PO DAILY #30 chew 08/16/16 Nitroglycerin Sl Tabs [Nitrostat] 0.4 mg SUBLINGUAL Q5M PRN #25 tab 01/23/20 Allergies Allergy/AdvReac Type Severity Reaction Status Date / Time moxifloxacin HCl Allergy Rash/Hives Verified 02/12/23 02:26 [From Avelox] Review of Systems ROS Statement: Those systems with pertinent positive or pertinent negative responses have been documented in the HPI. ROS Other: All systems not noted in ROS Statement are negative. Past Medical History Past Medical History: Asthma, Coronary Artery Disease (CAD), Chest Pain / Angina, Heart Failure, COPD, Fibromyalgia, GERD/Reflux, Hyperlipidemia, Myocardial Infarction (TN), Musculoskeletal Disorder, Osteoarthritis (OA), Pneumonia Additional Past Medical History / Comment(s): Has Pain Pump/AICD. Ishemic Cardiomyopathy. Hx [place] X3 - 2004, 2012, 2017. Hx bronchitis. Chronic back pain, lumbar Degenerative Disc Disease, occasional neck pain, osteoporosis, migraines. Hx UTIs, kidney stones. Vertigo. Last Myocardial Infarction Date:: 2016 History of Any Multi-Drug Resistant Organisms: None Reported Past Surgical History: AICD, Heart Catheterization, Heart Catheterization With Stent, Orthopedic Surgery, Tubal Ligation Additional Past Surgical History / Comment(s): Multiple stents, left hand surgery, pain clinic procedures, Medtronic Pain Pump surgically implanted. Past Anesthesia/Blood Transfusion Reactions: No Reported Reaction, Motion Sickness Date of Last Stent Placement:: 08-13-16 Type of Cardiac Device: AICD Device Placement Date:: 2016 [employer]. Past Psychological History: Anxiety, Bipolar, Depression Smoking Status: Current every day smoker Past Alcohol Use History: Occasional Past Drug Use History: Marijuana - Past Family History Mother Family Medical History: Coronary Artery Disease (CAD), Fibromyalgia, Hyperlipidemia Additional Family Medical History / Comment(s): Emotional problems, bipolar. Father Family Medical History: CVA/TIA, Fibromyalgia, Hyperlipidemia, Hypertension, Musculoskeletal Disorder Additional Family Medical History / Comment(s): MS. Sister(s) History Unknown: Yes Family Medical History: Hyperlipidemia General Exam Limitations: no limitations General appearance: alert, in no apparent distress Head exam: Present: atraumatic, normocephalic Eye exam: Present: normal appearance, PERRL ENT exam: Present: normal exam Neck exam: Present: normal inspection. Absent: tenderness Respiratory exam: Present: wheezes. Absent: respiratory distress, rales Cardiovascular Exam: Present: regular rate, normal rhythm GI/Abdominal exam: Present: soft. Absent: distended, tenderness Extremities exam: Present: pedal edema Neurological exam: Present: alert, oriented X3, CN II-XII intact. Absent: motor sensory deficit Psychiatric exam: Present: normal affect, normal mood Skin exam: Present: warm, dry, intact. Absent: cyanosis, diaphoretic Course Vital Signs 02/12/23 02/12/23 02/12/23 02:26 03:02 03:10 Temperature 97.8 F Pulse Rate 65 57 L Pulse Rate [ 58 L Mover Helper ] Respiratory 18 20 Rate Blood Pressure 92/62 95/56 O2 Sat by Pulse 95 93 L Oximetry 02/12/23 02/12/23 02/12/23 04:00 04:05 04:47 Temperature Pulse Rate 61 Pulse Rate [ Mover Helper ] Respiratory 16 Rate Blood Pressure 100/69 O2 Sat by Pulse 88 L 93 L 96 Oximetry - Reevaluation(s) Reevaluation #1: 02/12/23 0700 ultrasound of the left leg has been ordered, results pending. Medical Decision Making - Medical Decision Making Was pt. sent in by a medical professional or institution (, PA, CONTINUOUS IMPROVEMENT MANAGER, urgent care, hospital, or [facility]...) When possible be specific @ -[No] Did you speak to anyone other than the patient for history (EMS, parent, family, police, friend...)? What history was obtained from this source @ -[No] Did you review nursing and triage notes (agree or disagree)? Why? @ -[I reviewed and agree with nursing and triage notes] Were old charts reviewed (outside hosp., previous admission, EMS record, old EKG, old radiological studies, urgent care reports/EKG's, [facility] records)? Report findings @ -[No old charts were reviewed] Differential Diagnosis (chest pain, altered mental status, abdominal pain women, abdominal pain men, vaginal bleeding, weakness, fever, dyspnea, syncope, headache, dizziness, GI bleed, back pain, seizure, CVA, palpatations, mental health, musculoskeletal)? @ -[Differential Dyspnea: Coronary syndrome, arrhythmia, tamponade, asthma, COPD, pulmonary embolism, pneumonia, pneumothorax, pulmonary effusion, anaphylaxis, diabetic ketoacidosis, flailed chest, pulmonary contusion, diaphragmatic rupture, anemia, neuromuscular, this is not meant to be an all-inclusive list. EKG interpreted by me (3pts min.). @ -Sinus bradycardia rate of 57, T-wave inversion in the precordial leads similar compared to prior, TX interval 180, QRS duration 122, QTC 473. X-rays interpreted by me (1pt min.). @ -[mild CHF on chest x-ray CT interpreted by me (1pt min.). @ -[None done] U/S interpreted by me (1pt. min.). @ -[None done] What testing was considered but not performed or refused? (CT, X-rays, U/S, labs)? Why? @ -[None] What meds were considered but not given or refused? Why? @ -[None] Did you discuss the management of the patient with other professionals (professionals i.e. , PA, CONTINUOUS IMPROVEMENT MANAGER, lab, RT, psych nurse, clinical social work aide, natural resource technician, teacher, worldwide chief creative officer, supportive employment case manager)? Give summary @ -[No] Was smoking cessation discussed for >3mins.? @ -[No] Was critical care preformed (if so, how long)? @ -[No] Were there social determinants of health that impacted care today? How? (Homelessness, low income, unemployed, alcoholism, drug addiction, transportation, low edu. Level, literacy, decrease access to med. care, longterm, rehab)? @ -[No] Was there de-escalation of care discussed even if they declined (Discuss DNR or withdrawal of care, Hospice)? DNR status @ -[No] What co-morbidities impacted this encounter? (DM, HTN, Smoking, COPD, CAD, Cancer, CVA, ARF, Chemo, Hep., AIDS, mental health diagnosis, sleep apnea, morbid obesity)? @ -[cardiomyopathy Was patient admitted / discharged? Hospital course, mention meds given and route, prescriptions, significant lab abnormalities, going to OR and other pertinent info. @ patient admitted for echo, serial cardiac enzymes, cardiology consultation Undiagnosed new problem with uncertain prognosis? @ -[No] Drug Therapy requiring intensive monitoring for toxicity (Heparin, Nitro, Insulin, Cardizem)? @ -[No] Were any procedures done? @ -[No] Diagnosis/symptom? @ -[CHF Acute, or Chronic, or Acute on Chronic? @ -acute Uncomplicated (without systemic symptoms) or Complicated (systemic symptoms)? @ -[default] Side effects of treatment? @ -[No] Exacerbation, Progression, or Severe Exacerbation? @ -[No] Poses a threat to life or bodily function? How? (Chest pain, [place], [place], pneumonia, PE, COPD, DKA, ARF, appy, cholecystitis, CVA, Diverticulitis, Homicidal, Suicidal, threat to staff... and all critical care pts) @ -[moderate risk. - Lab Data Result diagrams: 02/12/23 03:01 02/12/23 03:01 Lab Results 02/12/23 02/12/23 02/12/23 Range/Units 03:01 03:01 03:01 WBC 8.7 (3.8-10.6) k/uL RBC 4.43 (3.80-5.40) m/uL Hgb 14.4 (11.4-16.0) gm/dL Hct 41.1 (34.0-46.0) % MCV 92.9 (80.0-100.0) fL MCH 32.6 (25.0-35.0) pg MCHC 35.1 (31.0-37.0) g/dL RDW 15.1 (11.5-15.5) % Plt Count 212 (150-450) k/uL MPV 8.2 Neutrophils % 42 % Lymphocytes % 44 % Monocytes % 7 % Eosinophils % 4 % Basophils % 1 % Neutrophils # 3.6 (1.3-7.7) k/uL Lymphocytes # 3.8 (1.0-4.8) k/uL Monocytes # 0.6 (0-1.0) k/uL Eosinophils # 0.3 (0-0.7) k/uL Basophils # 0.1 (0-0.2) k/uL PT 10.3 (9.0-12.0) sec INR 1.0 (<1.2) APTT 25.5 (22.0-30.0) sec Sodium (137-145) mmol/L Potassium (3.5-5.1) mmol/L Chloride (98-107) mmol/L Carbon Dioxide (22-30) mmol/L Anion Gap mmol/L BUN (7-17) mg/dL Creatinine (0.52-1.04) mg/dL Est GFR (CKD-EPI)AfAm (>60 ml/min/1.73 sqM) Est GFR (CKD-EPI)NonAf (>60 ml/min/1.73 sqM) Glucose (74-99) mg/dL Plasma Lactic Acid Ramsey (0.7-2.0) mmol/L Calcium (8.4-10.2) mg/dL Magnesium (1.6-2.3) mg/dL Total Bilirubin (0.2-1.3) mg/dL AST (14-36) U/L ALT (4-34) U/L Alkaline Phosphatase (38-126) U/L Troponin I (0.000-0.034) ng/mL NT-Pro-B Natriuret Pep pg/mL Total Protein (6.3-8.2) g/dL Albumin (3.5-5.0) g/dL Urine Color Light Yellow Urine Appearance Clear (Clear) Urine pH 6.5 (5.0-8.0) Ur Specific [place] 1.008 (1.001-1.035) Urine Protein Negative (Negative) Urine Glucose (UA) Negative (Negative) Urine Ketones Negative (Negative) Urine Blood Negative (Negative) Urine Nitrite Negative (Negative) Urine Bilirubin Negative (Negative) Urine Urobilinogen <2.0 (<2.0) mg/dL Ur Leukocyte Esterase Small H (Negative) Urine RBC <1 (0-5) /hpf Urine WBC 2 (0-5) /hpf Ur Squamous Epith Cells 2 (0-4) /hpf Urine Bacteria Rare H (None) /hpf 02/12/23 02/12/23 02/12/23 Range/Units 03:01 03:01 03:01 WBC (3.8-10.6) k/uL RBC (3.80-5.40) m/uL Hgb (11.4-16.0) gm/dL Hct (34.0-46.0) % MCV (80.0-100.0) fL MCH (25.0-35.0) pg MCHC (31.0-37.0) g/dL RDW (11.5-15.5) % Plt Count (150-450) k/uL MPV Neutrophils % % Lymphocytes % % Monocytes % % Eosinophils % % Basophils % % Neutrophils # (1.3-7.7) k/uL Lymphocytes # (1.0-4.8) k/uL Monocytes # (0-1.0) k/uL Eosinophils # (0-0.7) k/uL Basophils # (0-0.2) k/uL PT (9.0-12.0) sec INR (<1.2) APTT (22.0-30.0) sec Sodium 134 L (137-145) mmol/L Potassium 3.4 L (3.5-5.1) mmol/L Chloride 96 L (98-107) mmol/L Carbon Dioxide 29 (22-30) mmol/L Anion Gap 9 mmol/L BUN 22 H (7-17) mg/dL Creatinine 0.84 (0.52-1.04) mg/dL Est GFR (CKD-EPI)AfAm >90 (>60 ml/min/1.73 sqM) Est GFR (CKD-EPI)NonAf 83 (>60 ml/min/1.73 sqM) Glucose 96 (74-99) mg/dL Plasma Lactic Acid Ramsey 1.1 (0.7-2.0) mmol/L Calcium 8.8 (8.4-10.2) mg/dL Magnesium 2.0 (1.6-2.3) mg/dL Total Bilirubin 0.5 (0.2-1.3) mg/dL AST 32 (14-36) U/L ALT 18 (4-34) U/L Alkaline Phosphatase 93 (38-126) U/L Troponin I <0.012 (0.000-0.034) ng/mL NT-Pro-B Natriuret Pep 560 pg/mL Total Protein 7.1 (6.3-8.2) g/dL Albumin 3.9 (3.5-5.0) g/dL Urine Color Urine Appearance (Clear) Urine pH (5.0-8.0) Ur Specific [place] (1.001-1.035) Urine Protein (Negative) Urine Glucose (UA) (Negative) Urine Ketones (Negative) Urine Blood (Negative) Urine Nitrite (Negative) Urine Bilirubin (Negative) Urine Urobilinogen (<2.0) mg/dL Ur Leukocyte Esterase (Negative) Urine RBC (0-5) /hpf Urine WBC (0-5) /hpf Ur Squamous Epith Cells (0-4) /hpf Urine Bacteria (None) /hpf Disposition Clinical Impression: Ischemic cardiomyopathy, CHF (congestive heart failure) Disposition: ADMITTED IP TO THIS HOSP Condition: Stable Is patient prescribed a controlled substance at d/c from ED?: No Referrals: Brenden Rodriguez MD [Primary Care Provider] - 1-2 days Time of Disposition: 05:50
[2023-02-12 03:27] LABS: Partial Thromboplastin Time 25.5 sec (22.0-30.0); Prothrombin Time 10.3 sec (9.0-12.0)
[2023-02-12 03:29] LABS: ALT 18 U/L (4-34); AST 32 U/L (14-36); African American GFR (CKD) >90 (>60 ml/min/1.73 sqM); Albumin 3.9 g/dL (3.5-5.0); Alkaline Phosphatase 93 U/L (38-126); Anion Gap 9 mmol/L; Blood Urea Nitrogen 22 mg/dL (7-17); Calcium 8.8 mg/dL (8.4-10.2); Carbon Dioxide 29 mmol/L (22-30); Chloride 96 mmol/L (98-107); Glucose 96 mg/dL (74-99); Non-African American GFR(CKD) 83 (>60 ml/min/1.73 sqM); Potassium 3.4 mmol/L (3.5-5.1); Sodium 134 mmol/L (137-145); Total Bilirubin 0.5 mg/dL (0.2-1.3); Total Protein 7.1 g/dL (6.3-8.2)
[2023-02-12 03:37] LABS: NT-Pro-B-Type Natriuretic Pept 560 pg/mL
[2023-02-12 03:45] LABS: Basophils # (A) 0.1 k/uL (0-0.2); Basophils % (A) 1 %; Eosinophils # (A) 0.3 k/uL (0-0.7); Eosinophils % (A) 4 %; HCT 41.1 % (34.0-46.0); HGB 14.4 gm/dL (11.4-16.0); Lymphocytes # (A) 3.8 k/uL (1.0-4.8); Lymphocytes % (A) 44 %; MCH 32.6 pg (25.0-35.0); MCHC 35.1 g/dL (31.0-37.0); MCV 92.9 fL (80.0-100.0); Mean Platelet Volume 8.2; Monocytes # (A) 0.6 k/uL (0-1.0); Monocytes % (A) 7 %; Neutrophils # (A) 3.6 k/uL (1.3-7.7); Neutrophils % (A) 42 %; Platelet Count 212 k/uL (150-450); RBC 4.43 m/uL (3.80-5.40); RDW 15.1 % (11.5-15.5); WBC 8.7 k/uL (3.8-10.6)
[2023-02-12 04:20] LABS: Appearance,Urine Clear (Clear); Bacteria,Urine Rare /hpf; Bilirubin,Urine Negative (Negative); Blood,Urine Negative (Negative); Color,Urine Light Yellow; Glucose,Urine (UA) Negative (Negative); Ketones,Urine Negative (Negative); Leukocyte Esterase,Urine Small (Negative); Nitrite,Urine Negative (Negative); PH, Urine 6.5 (5.0-8.0); Protein,Urine Negative (Negative); RBC,Urine <1 /hpf (0-5); Specific Gravity,Urine 1.008 (1.001-1.035); Squamous Epithelial Cell,Urine 2 /hpf (0-4); Urobilinogen,Urine <2.0 mg/dL (<2.0); WBC,Urine 2 /hpf (0-5)
[2023-02-12] MEDS ORDERED: POTASSIUM CHLORIDE ER 20 MEQ TAB.ER PO STA (04:34)
--- NOTE | 2023-02-12 05:00 | XR ---
EXAM: XR Chest, 2 Views CLINICAL HISTORY: ITS.REASON XR Reason: difficulty breathing TECHNIQUE: Frontal and lateral views of the chest. COMPARISON: 10/24/22 FINDINGS: Lungs: Suspect mild pulmonary vascular congestion. Pleural space: Unremarkable. No pneumothorax. Heart: Stable cardiomegaly. Mediastinum: Unremarkable. Bones/joints: Osseous structures stable. Tubes, lines and devices: Cardiac pacemaker redemonstrated. IMPRESSION: Query mild CHF. Clinical and laboratory correlation and follow-up to resolution suggested.
[2023-02-12] MEDS ORDERED: NALOXONE 0.4 MG/ML 1 ML VIAL IV PRN (05:47)
--- NOTE | 2023-02-12 08:01 | US ---
EXAMINATION TYPE: US venous doppler duplex LE LT DATE OF EXAM: 02/12/2023 7:51 AM COMPARISON: NONE CLINICAL INDICATION: Female, 47 years old with history of pain/swelling; left leg pain SIDE PERFORMED: left TECHNIQUE: The lower extremity deep venous system is examined utilizing real time linear array sonog chester with graded compression, doppler sonography and color-flow sonography. VESSELS IMAGED: Common Femoral Vein Deep Femoral Vein Greater Saphenous Vein * Femoral Vein Popliteal Vein Small Saphenous Vein * Proximal Calf Veins (* superficial vessels) Grayscale, color doppler, spectral doppler imaging performed of the deep veins of the left lower extr emity. There is normal flow, compressibility, vascular waveforms. Left Leg: No evidence of DVT as visualized IMPRESSION: No ultrasound evidence for deep venous thrombosis of the left lower extremity.
--- NOTE | 2023-02-12 12:03 | P.HPIM ---
History of Present Illness H&P Date: 02/12/23 Chief Complaint: Shortness of breath, chest tightness This 47-year-old female well-known to the practice history of coronary artery disease ischemic cardiomyopathy presenting for evaluation chest pain discomfort and dyspnea. 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 medication change, she was prescribed Robaxin in the office Review of Systems Constitutional: Reports fatigue, Reports weakness Ears, nose, mouth and throat: Reports as per HPI Cardiovascular: Reports chest pain, Reports decreased exercise tolerance, Reports dyspnea on exertion, Reports edema, Reports high blood pressure, Reports leg edema, Reports shortness of breath Respiratory: Reports dyspnea Gastrointestinal: Reports as per HPI Genitourinary: Reports as per HPI Menstruation: Reports as per HPI Musculoskeletal: Reports as per HPI, Reports low back pain, Reports morning sti ffness Integumentary: Reports as per HPI Neurological: Reports as per HPI Psychiatric: Reports as per HPI Endocrine: Reports as per HPI Hematologic/Lymphatic: Reports as per HPI Past Medical History Past Medical History: Asthma, Coronary Artery Disease (CAD), Chest Pain / Angina, Heart Failure, COPD, Fibromyalgia, GERD/Reflux, Hyperlipidemia, Myocardial Infarction (UT), Musculoskeletal Disorder, Osteoarthritis (OA), Pneumonia Additional Past Medical History / Comment(s): Has Pain Pump/AICD. Ishemic Cardio myopathy. Hx [place] X3 - 2004, 2012, 2017. Hx bronchitis. Chronic back pain, lumbar Degenerative Disc Disease, occasional neck pain, osteoporosis, migraines. Hx UTIs, kidney stones. Vertigo. Last Myocardial Infarction Date:: 2016 History of Any Multi-Drug Resistant Organisms: None Reported Past Surgical History: AICD, Heart Catheterization, Heart Catheterization With Stent, Orthopedic Surgery, Tubal Ligation Additional Past Surgical History / Comment(s): Multiple stents, left hand surgery, pain clinic procedures, Medtronic Pain Pump surgically implanted. Past Anesthesia/Blood Transfusion Reactions: No Reported Reaction, Motion Sickness Date of Last Stent Placement:: 08-13-16 Type of Cardiac Device: AICD Device Placement Date:: 2016 [facility]. Past Psychological History: Anxiety, Bipolar, Depression Smoking Status: Current every day smoker Past Alcohol Use History: Occasional Past Drug Use History: Marijuana - Past Family History Mother Family Medical History: Coronary Artery Disease (CAD), Fibromyalgia, Hyperlipidemia Additional Family Medical History / Comment(s): Emotional problems, bipolar. Father Family Medical History: CVA/TIA, Fibromyalgia, Hyperlipidemia, Hypertension, Musculoskeletal Disorder Additional Family Medical History / Comment(s): MS. Sister(s) History Unknown: Yes Family Medical History: Hyperlipidemia Medications and Allergies Home Medications Medication Instructions Recorded Confirmed Type Aspirin 81 mg PO DAILY #30 chew 08/16/16 12/09/22 Rx Omeprazole [PriLOSEC] 40 mg PO QAM 11/29/16 12/09/22 History Atorvastatin [Lipitor] 80 mg PO HS 11/30/16 12/09/22 History Divalproex ER [Depakote ER] 1,000 mg PO 1200 02/06/17 12/09/22 History Alendronate Sodium 70 mg PO COHEN 06/29/17 12/09/22 History Albuterol Sulfate [Ventolin HFA] 2 puff INHALATION Q6H PRN 09/25/19 12/09/22 History HYDROcodone/APAP 7.5-325MG [[place] 1 tab PO BID PRN 09/25/19 12/09/22 History 7.5-325] Metoprolol Tartrate [Lopressor] 25 mg PO BID 09/25/19 12/09/22 History Isosorbide Mononitrate [Isosorbide 60 mg PO 1900 11/19/19 12/09/22 History Mononitrate ER] Spironolactone [Aldactone] 25 mg PO BID 11/19/19 12/09/22 History Vitamin B Complex 1 cap PO DAILY 11/19/19 12/09/22 History Albuterol Nebulized [Ventolin 2.5 mg INHALATION Q4H PRN 01/19/20 12/09/22 History Nebulized] Furosemide [Lasix] 60 mg PO BID 01/19/20 12/09/22 History Sacubitril/Valsartan [Entresto 49 1 tab PO BID 01/19/20 12/09/22 History mg-51 mg Tablet] Nitroglycerin Sl Tabs [Nitrostat] 0.4 mg SUBLINGUAL Q5M PRN #25 tab 01/23/20 12/15/22 Rx Calcium Carbonate [Calcium] 600 mg PO DAILY 04/27/20 12/09/22 History Cholecalciferol [Vitamin D3 (25 1,000 unit PO DAILY 04/27/20 12/09/22 History Mcg = 1000 Iu)] Escitalopram [Lexapro] 20 mg PO HS 04/27/20 12/09/22 History Gabapentin 900 mg PO TID 04/27/20 12/09/22 History Dilaudid Pain Pump 0.482 mg .ROUTE CONTINUOUS 12/09/22 12/09/22 History Fluticasone/Umeclidin/Vilanter 1 puff INHALATION QAM 12/09/22 12/09/22 History [Trelegy Ellipta 200-62.5-25] Allergies Allergy/AdvReac Type Severity Reaction Status Date / Time moxifloxacin HCl Allergy Rash/Hives Verified 02/12/23 02:26 [From Avelox] Physical Exam Osteopathic Statement: *. No significant issues noted on an osteopathic structural exam other than those noted in the History and Physical/Consult. Vitals: Vital Signs Temp Pulse Pulse Resp BP Pulse Ox 02/12/23 09:59 98.0 F 53 L 17 93/61 96 02/12/23 09:35 61 17 95/62 95 02/12/23 08:00 98.1 F 53 L 18 98/57 96 02/12/23 07:30 51 L 19 100/68 96 02/12/23 07:15 49 L 17 107/67 95 02/12/23 04:47 61 16 100/69 96 02/12/23 04:05 93 L 02/12/23 04:00 88 L 02/12/23 03:10 57 L 20 95/56 93 L 02/12/23 03:02 58 L 02/12/23 02:26 97.8 F 65 18 92/62 95 Intake and Output 02/11/23 02/12/23 02/12/23 22:59 06:59 14:59 Other: Weight 92.986 kg General: [Patient awake, alert and oriented times 3. Patient in no acute distress.] HEENT: [PERRL. EOMI. No pharyngeal erythema or exudate.] Neck: [No adenopathy.] Cardiac: [Heart regular in rate and rhythm. No S3. No S4. No clicks, rubs. No murmur.] Lungs: [Clear to auscultation bilaterally.] Abdomen: [No mass. No organomegaly. Bowel sounds presnt and normoactive in all 4 quadrants.] Extremes: [No edema no cyanosis no claudication normal pulses] : Normal female genitalia Musculoskeletal: [No joint erythema, 1+ edema bilaterally lower extremes Skin: [No rash.] Neurologic: [No lateralizing deficits. CN II - XII grossly intact.] Lymphatic: [No adenopathy.] Results CBC & Chem 7: 02/12/23 03:01 02/12/23 03:01 Labs: Abnormal Lab Results - Last 24 Hours (Table) 02/12/23 02/12/23 Range/Units 03:01 03:01 Sodium 134 L (137-145) mmol/L Potassium 3.4 L (3.5-5.1) mmol/L Chloride 96 L (98-107) mmol/L BUN 22 H (7-17) mg/dL Ur Leukocyte Esterase Small H (Negative) Urine Bacteria Rare H (None) /hpf Assessment and Plan (1) CHF (congestive heart failure) Current Visit: Yes Status: Acute Code(s): I50.9 - HEART FAILURE, UNSPECIFIED SNOMED Code(s): 12168721 (2) Ischemic cardiomyopathy Current Visit: Yes Status: Acute Code(s): I25.5 - ISCHEMIC CARDIOMYOPATHY SNOMED Code(s): 883641919 (3) CAD (coronary artery disease) Current Visit: No Status: Acute Code(s): I25.10 - ATHSCL HEART DISEASE OF COUNCIL CORONARY ARTERY W/O ANG PCTRS SNOMED Code(s): 44279647 (4) Chest pain Current Visit: No Status: Acute Code(s): R07.9 - CHEST PAIN, UNSPECIFIED SNOMED Code(s): 84757182 (5) Depression with somatization Current Visit: No Status: Acute Code(s): F32.9 - MAJOR DEPRESSIVE DISORDER, SINGLE EPISODE, UNSPECIFIED SNOMED Code(s): 72923861 (6) History of hypertension Current Visit: No Status: Acute Code(s): Z86.79 - PERSONAL HISTORY OF OTHER DISEASES OF THE CIRCULATORY SYSTEM SNOMED Code(s): 760683620 (7) Hyperlipidemia Current Visit: No Status: Acute Code(s): E78.5 - HYPERLIPIDEMIA, UNSPECIFIED SNOMED Code(s): 41034291 (8) NSTEMI (non-ST elevated myocardial infarction) Current Visit: No Status: Acute Code(s): I21.4 - NON-ST ELEVATION (NSTEMI) MYOCARDIAL INFARCTION SNOMED Code(s): 28103020 (9) Nicotine dependence Current Visit: No Status: Acute Code(s): F17.200 - NICOTINE DEPENDENCE, UNSPECIFIED, UNCOMPLICATED SNOMED Code(s): 20805453 (10) Personal history of hypertensive heart disease Current Visit: No Status: Acute Code(s): Z86.79 - PERSONAL HISTORY OF OTHER DISEASES OF THE CIRCULATORY SYSTEM SNOMED Code(s): 726017758 (11) Presence of stent in LAD coronary artery Current Visit: No Status: Acute Code(s): Z95.5 - PRESENCE OF CORONARY ANGIOPLASTY IMPLANT AND GRAFT SNOMED Code(s): 307940945399916 (12) Shortness of breath Current Visit: No Status: Acute Code(s): R06.02 - SHORTNESS OF BREATH SNOMED Code(s): 567628317 (13) Unstable angina pectoris Current Visit: No Status: Acute Code(s): I20.0 - UNSTABLE ANGINA SNOMED Code(s): 5836879 Plan: Patient admitted to the hospital Cardiology consult will undergo cardiology evall Known history of ischemic cardiomyopathy Known history of congestive heart failure Known history of depression Time with Patient: Greater than 30
[2023-02-12] MEDS: SPIRONOLACTONE 25 MG TAB PO SCH (12:29)
[2023-02-12] MEDS: ASPIRIN 81 MG PO SCH (12:29)
[2023-02-12] MEDS ORDERED: ALBUTEROL HFA INHALER INHALATION PRN (12:32)
[2023-02-12] MEDS ORDERED: ALBUTEROL NEBULIZED 2.5 MG/3 ML INHALATION PRN (12:32)
--- NOTE | 2023-02-12 13:32 | P.CRDCN ---
History of Present Illness Consult date: 02/12/23 Consult reason: congestive heart failure History of present illness: History of present illness: This is a 47 year old female patient of Dr. Montoya with past smoking history of myocardial infarction with coronary artery disease with prior triple-vessel stenting, ischemic cardiomyopathy status post AICD, hypertension, dyslipidemia, active tobacco use and dependence, COPD. we have been asked to evaluate the patient for CHF. Patient states that for a couple of days she has had swelling in her feet and retaining fluid, her feet feel sore. She also complains of headache, sore throat, nausea and vomiting as well as tired feeling, positive orthopnea. Reports fatigue and slightly increased cough from baseline. She also has tightness or heaviness in her chest which can occur at rest but occurs consistently with activity. The chest tightness has been going on for the past 4-5 days. also she states that her blood pressure is usually low but has been more so lately. Also, complains of new gerd symptoms and also diarrhea. Patient thought her symptoms were worsening and decided to come into the hospital for evaluation. Patient did not start any new medications in the ER. Regarding tobacco use, patient is active at [facility] for >30 years. She reports increase stress at home with issues with her daughter. EKGsinus bradycardia with Chest x-ray: left ventricular hypertrophymild CHF Venous Doppler showed no DVT on the left leg Sodium 134, potassium 3.4, BUN 22 creatinine 0.84.CBC unremarkable. Troponin negative 2. ProBNP 560. Home cardiac medications: aspirin 81 mg daily, Entresto 4951 milligrams 2 times daily, Imdur30 mg daily, Lasix 40 mg tablet 1-/2 tablets twice daily Imdur 30 mg daily, Lopressor twice a milligrams twice daily, spironolactone 25 mg daily cardiac catheterization 01/2020 revealed patent stents in the LAD, left circumflex, RI and RCA PCI 11/2019 and atherectomy of the LCx and stenting of the proximal LCx 11/21/2019 cardiac catheterization with intermediate in-stent restenosis of the mid RCA, severe de florentino disease involving the proximal LCx with extremely calcified lesions. Patent stents in the LAD PCI 11/2016 stent in the proximal LAD and mid LAD PCI 08/2016 stent in the mid CX PCI 07/2016 stent in the proximal LAD PCI 02/2015 stent in the distal RCA PCI 11/2012 stent in the proximal OM1 Echocardiogram 10/2022 EF 35%, moderate TR, moderate MR, moderate AR 2017 single-chamber ICD implantation for severe ischemic cardiomyopathy Lexiscan stress test 11/08/2022 large anterior scar Review Of Systems: At the time of my evaluation: Constitutional: No fever, no chills. No weakness, fatigue or lethargy. EENT: + headache. No dizziness. + ST Lungs: + shortness of breath, cough, no sputum production. No wheezing. Cardiovascular: + chest pain, + lower extremity edema. No palpitations. No paroxysmal nocturnal dyspnea. + intermittent orthopnea. No lightheadedness or dizziness. No syncopal episodes. Abdominal: No abdominal pain. + nausea, +vomiting. No diarrhea. No constipation. No bloody or tarry stools. Musculoskeletal: No myalgias. No muscle weakness, no frequent falls. Integumentary: No wounds. No rash. Neurologic: No aphasia. No facial droop. No change in mentation. Physical examination: Gen: This is a a 47-year-old female. She is resting in bed appears to be comfortable. No respiratory distress noted. VS: reviewed. Blood pressure 95/56, heart rate in the 50s and 60s. HEENT: Head is atraumatic, normocephalic. Pupils equal, round. Sclerae is anicteric. NECK: Supple. No JVD. . LUNGS: bilateral rhonchi and expiratory wheeze. No intercostal retractions. HEART: Regular rate and rhythm. systolic murmur. ABDOMEN: Soft No tenderness. EXTREMITIES: Minimal pedal edema. No calf tenderness. NEUROLOGICAL: Patient is awake, alert and oriented x3. Assessment: Multiple symptoms: Headache, sore throat, nausea and vomiting, diarrhea, fatigue-- possible virus Chest discomfort, ruled out acute coronary syndrome Chronic systolic heart failure GERD Ischemic cardiomyopathy status post AICD Severe coronary artery disease with multiple stenting Hypertension Hyperlipidemia Valvular heart disease with moderate TR, MR, AR Active tobacco use and dependence COPD Plan: Resume patient's home cardiac medications No plan for ischemic workup No need to repeat echocardiogram as this was done in October Cardiology will sign off this case and follow on an as-needed basis. Please reconsult for any new concerns. Patient may follow-up in the office in one to 2 weeks. Thank you kindly for this consultation. Nurse practitioner note has been reviewed, I agree with documented findings and plan of care. Patient was seen and examined. Past Medical History Past Medical History: Asthma, Coronary Artery Disease (CAD), Chest Pain / Angina, Heart Failure, COPD, Fibromyalgia, GERD/Reflux, Hyperlipidemia, Myocardial Infarction (VT), Musculoskeletal Disorder, Osteoarthritis (OA), Pneumonia Additional Past Medical History / Comment(s): Has Pain Pump/AICD. Ishemic Cardiomyopathy. Hx [place] X3 - 2004, 2012, 2017. Hx bronchitis. Chronic back pain, lumbar Degenerative Disc Disease, occasional neck pain, osteoporosis, migraines. Hx UTIs, kidney stones. Vertigo. Last Myocardial Infarction Date:: 2017 History of Any Multi-Drug Resistant Organisms: None Reported Past Surgical History: AICD, Heart Catheterization, Heart Catheterization With Stent, Orthopedic Surgery, Tubal Ligation Additional Past Surgical History / Comment(s): Multiple stents, left hand surgery, pain clinic procedures, Medtronic Pain Pump surgically implanted. Past Anesthesia/Blood Transfusion Reactions: No Reported Reaction, Motion Sickness Date of Last Stent Placement:: 08-13-16 Type of Cardiac Device: AICD Device Placement Date:: 2016 [employer]. Past Psychological History: Anxiety, Bipolar, Depression Smoking Status: Current every day smoker Past Alcohol Use History: Occasional Past Drug Use History: Marijuana - Past Family History Mother Family Medical History: Coronary Artery Disease (CAD), Fibromyalgia, Hyperlipidemia Additional Family Medical History / Comment(s): Emotional problems, bipolar. Father Family Medical History: CVA/TIA, Fibromyalgia, Hyperlipidemia, Hypertension, Musculoskeletal Disorder Additional Family Medical History / Comment(s): MS. Sister(s) History Unknown: Yes Family Medical History: Hyperlipidemia Medications and Allergies Home Medications Medication Instructions Recorded Confirmed Type Omeprazole [PriLOSEC] 40 mg PO DAILY@0700 11/29/16 02/12/23 History Atorvastatin [Lipitor] 80 mg PO DAILY@1900 11/30/16 02/12/23 History Divalproex ER [Depakote ER] 1,000 mg PO DAILY@1200 02/06/17 02/12/23 History Alendronate Sodium 70 mg PO COHEN@0700 06/29/17 02/12/23 History HYDROcodone/APAP 7.5-325MG [[place] 1 tab PO TID PRN 09/25/19 02/12/23 History 7.5-325] Metoprolol Tartrate [Lopressor] 25 mg PO BID@1200,1900 09/25/19 02/12/23 History Isosorbide Mononitrate [Isosorbide 30 mg PO DAILY@1000 11/19/19 02/12/23 History Mononitrate ER] Spironolactone [Aldactone] 25 mg PO DAILY@1000 11/19/19 02/12/23 History Furosemide [Lasix] 60 mg PO BID@0700,1200 01/19/20 02/12/23 History Escitalopram [Lexapro] 20 mg PO DAILY@1900 04/27/20 02/12/23 History ALPRAZolam [Xanax] 0.25 mg PO BID PRN 02/12/23 02/12/23 History Aspirin EC [Ecotrin Low Dose] 81 mg PO DAILY@1600 02/12/23 02/12/23 History Gabapentin [Neurontin] 900 mg PO TID@1000,1600,2200 02/12/23 02/12/23 History Sacubitril/Valsartan [Entresto 24 1 tab PO BID@1000,1600 02/12/23 02/12/23 History mg-26 mg Tablet] traZODone HCL [Desyrel] 25 mg PO HS@219902/12/23 02/12/23 History Allergies Allergy/AdvReac Type Severity Reaction Status Date / Time moxifloxacin HCl Allergy Rash/Hives Verified 02/12/23 13:07 [From Avelox] Physical Exam Vitals: Vital Signs Temp Pulse Pulse Resp BP Pulse Ox 02/12/23 09:59 98.0 F 53 L 17 93/61 96 02/12/23 09:35 61 17 95/62 95 02/12/23 08:00 98.1 F 53 L 18 98/57 96 02/12/23 07:30 51 L 19 100/68 96 02/12/23 07:15 49 L 17 107/67 95 02/12/23 04:47 61 16 100/69 96 02/12/23 04:05 93 L 02/12/23 04:00 88 L 02/12/23 03:10 57 L 20 95/56 93 L 02/12/23 03:02 58 L 02/12/23 02:26 97.8 F 65 18 92/62 95 Intake and Output 02/11/23 02/12/23 02/12/23 22:59 06:59 14:59 Other: Weight 92.986 kg Results 02/12/23 03:01 02/12/23 03:01 Cardiac Enzymes 02/12/23 02/12/23 02/12/23 Range/Units 03:01 03:01 07:40 AST 32 (14-36) U/L Troponin I <0.012 <0.012 (0.000-0.034) ng/mL Coagulation 02/12/23 Range/Units 03:01 PT 10.3 (9.0-12.0) sec APTT 25.5 (22.0-30.0) sec CBC 02/12/23 Range/Units 03:01 WBC 8.7 (3.8-10.6) k/uL RBC 4.43 (3.80-5.40) m/uL Hgb 14.4 (11.4-16.0) gm/dL Hct 41.1 (34.0-46.0) % Plt Count 212 (150-450) k/uL Comprehensive Metabolic Panel 02/12/23 Range/Units 03:01 Sodium 134 L (137-145) mmol/L Potassium 3.4 L (3.5-5.1) mmol/L Chloride 96 L (98-107) mmol/L Carbon Dioxide 29 (22-30) mmol/L BUN 22 H (7-17) mg/dL Creatinine 0.84 (0.52-1.04) mg/dL Glucose 96 (74-99) mg/dL Calcium 8.8 (8.4-10.2) mg/dL AST 32 (14-36) U/L ALT 18 (4-34) U/L Alkaline Phosphatase 93 (38-126) U/L Total Protein 7.1 (6.3-8.2) g/dL Albumin 3.9 (3.5-5.0) g/dL Current Medications Generic Name Dose Route Start Last Admin Trade Name Freq PRN Reason Stop Dose Admin Aspirin 81 mg 02/12/23 11:15 Aspirin 81 Mg PO DAILY [facility] Atorvastatin Calcium 80 mg 02/12/23 21:00 Atorvastatin 80 Mg Tab PO HS [facility] Isosorbide Mononitrate 60 mg 02/12/23 19:00 Isosorbide Mononitrate Er 60 Mg Tab.Er.24h PO 1900 [facility] Metoprolol Tartrate 25 mg 02/12/23 21:00 Metoprolol Tartrate 25 Mg Tab PO BID [facility] Naloxone HCl 0.2 mg 02/12/23 05:47 Naloxone 0.4 Mg/Ml 1 Ml Vial IV Q2M PRN Opioid Reversal Sacubitril/Valsartan 0.5 each 02/12/23 21:00 Sacubitril/Valsartan 49 Mg-51 Mg Tablet PO BID [facility] Spironolactone 25 mg 02/12/23 21:00 Spironolactone 25 Mg Tab PO BID [facility] Intake and Output 02/11/23 02/12/23 02/12/23 22:59 06:59 14:59 Other: Weight 92.986 kg 02/12/23 03:01 02/12/23 03:01
[2023-02-12] MEDS ORDERED: ALPRAZolam 0.25 MG TAB PO PRN (17:05)
[2023-02-12] MEDS ORDERED: ONDANSETRON 4 MG TAB PO PRN (17:07)
[2023-02-12] MEDS ORDERED: ISOSORBIDE MONONITRATE ER 60 MG TAB.ER.24H PO SCH (19:00)
[2023-02-12] MEDS: SACUBITRIL/VALSARTAN 49 MG-51 MG TABLET PO SCH (19:57)
[2023-02-12] MEDS ORDERED: ATORVASTATIN 80 MG TAB PO SCH (21:00)
[2023-02-12] MEDS ORDERED: SPIRONOLACTONE 25 MG TAB PO SCH (21:00)
[2023-02-12 21:49] VITALS: RESP 16
[2023-02-12] MEDS: METOPROLOL TARTRATE 25 MG TAB PO SCH (23:30)
[2023-02-13 06:22] VITALS: PULSE 56
[2023-02-13 08:34] LABS: African American GFR (CKD) >90 (>60 ml/min/1.73 sqM); Anion Gap 3 mmol/L; Blood Urea Nitrogen 19 mg/dL (7-17); Calcium 8.6 mg/dL (8.4-10.2); Carbon Dioxide 35 mmol/L (22-30); Chloride 100 mmol/L (98-107); Glucose 106 mg/dL (74-99); Non-African American GFR(CKD) >90 (>60 ml/min/1.73 sqM); Potassium 4.6 mmol/L (3.5-5.1); Sodium 138 mmol/L (137-145)
[2023-02-13 08:42] VITALS: TEMP 97.5
[2023-02-13] MEDS: SACUBITRIL/VALSARTAN 49 MG-51 MG TABLET PO SCH (08:44)
[2023-02-13] MEDS: SPIRONOLACTONE 25 MG TAB PO SCH (08:45)
[2023-02-13] MEDS: METOPROLOL TARTRATE 25 MG TAB PO SCH (08:45)
[2023-02-13] MEDS: ASPIRIN 81 MG PO SCH (08:45)
[2023-02-13 11:35] LABS: Urine Alcohol Negative (Negative); Urine Barbiturate Negative (Negative); Urine Cocaine Negative (Negative); Urine Methadone Negative (Negative); Urine Opiates Negative (Negative); Urine Phencyclidine Negative (Negative)
[2023-02-13 12:18] VITALS: BP 105/68
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
== END 2023-02-13 14:16 | disposition home or self-care (01) ==
LOC: EC 02:21 → 6NMEDSUR 05:47 → 3SCARD 08:09
PROVIDERS: ADMIT Family Medicine; ATTEND Family Medicine
DX: R07.89 Other chest pain (principal); I25.5 Ischemic cardiomyopathy; I11.0 Hypertensive heart disease with heart failure; I50.22 Chronic systolic (congestive) heart failure; I25.10 Atherosclerotic heart disease of native coronary artery without angina pectoris; E78.5 Hyperlipidemia, unspecified; J44.9 Chronic obstructive pulmonary disease, unspecified; R00.1 Bradycardia, unspecified; I08.0 Rheumatic disorders of both mitral and aortic valves; G43.909 Migraine, unspecified, not intractable, without status migrainosus; K21.9 Gastro-esophageal reflux disease without esophagitis; F17.210 Nicotine dependence, cigarettes, uncomplicated; M81.0 Age-related osteoporosis without current pathological fracture; G89.29 Other chronic pain; M51.36 Other intervertebral disc degeneration, lumbar region; M79.7 Fibromyalgia; M19.90 Unspecified osteoarthritis, unspecified site; I25.2 Old myocardial infarction; J02.9 Acute pharyngitis, unspecified; R11.2 Nausea with vomiting, unspecified; R19.7 Diarrhea, unspecified; R53.83 Other fatigue; F31.9 Bipolar disorder, unspecified; F41.9 Anxiety disorder, unspecified; Z79.51 Long term (current) use of inhaled steroids; Z79.82 Long term (current) use of aspirin; Z79.899 Other long term (current) drug therapy; Z88.1 Allergy status to other antibiotic agents; Z87.442 Personal history of urinary calculi; Z87.440 Personal history of urinary (tract) infections; Z87.01 Personal history of pneumonia (recurrent); Z98.51 Tubal ligation status; Z98.890 Other specified postprocedural states; Z95.810 Presence of automatic (implantable) cardiac defibrillator; Z97.8 Presence of other specified devices; Z95.5 Presence of coronary angioplasty implant and graft; Z82.49 Family history of ischemic heart disease and other diseases of the circulatory system; Z82.3 Family history of stroke; Z82.0 Family history of epilepsy and other diseases of the nervous system; Z83.49 Family history of other endocrine, nutritional and metabolic diseases; Z82.69 Family history of other diseases of the musculoskeletal system and connective tissue; Z81.8 Family history of other mental and behavioral disorders; Z83.2 Family history of diseases of the blood and blood-forming organs and certain disorders involving the immune mechanism
CPT/HCPCS: 99285; 36415; 93005; 83880; 80053; 80048; 83605; 83735; 84484; 85025; 85610; 85730; 81001; 80306; 71046; 93971; G0378 ×3

== ENCOUNTER 2023-04-23 07:00 | Inpatient (IN) | payer MEDICARE ==
--- NOTE | 2023-04-23 07:42 | ED ---
General Adult HPI - General Chief complaint: Shortness of Breath Stated complaint: SOB Time Seen by Provider: 04/23/23 07:01 Source: patient, EMS, RN notes reviewed, old records reviewed Mode of arrival: EMS Limitations: no limitations - History of Present Illness Initial comments: 47-year-old female presenting for evaluation of chest pain and dyspnea. Patient reports productive cough over the past 24 hours. Over the past 12 hours she developed a chest pain with associated diaphoresis. She states she has not felt well for the past several days. She has a history of ischemic cardiomyopathy, coronary artery disease status post stenting, COPD. She is a current smoker. Her pain is resolved at the time my evaluation but she states she does not feel well. She reports moderate dyspnea. - Related Data Home Medications Medication Instructions Recorded Confirmed Omeprazole [PriLOSEC] 40 mg PO DAILY@0700 11/29/16 02/12/23 Atorvastatin [Lipitor] 80 mg PO DAILY@1900 11/30/16 02/12/23 Divalproex ER [Depakote ER] 1,000 mg PO DAILY@1200 02/06/17 02/12/23 Alendronate Sodium 70 mg PO COHEN@0700 06/29/17 02/12/23 HYDROcodone/APAP 7.5-325MG [[place] 1 tab PO TID PRN 09/25/19 02/12/23 7.5-325] Metoprolol Tartrate [Lopressor] 25 mg PO BID@1200,1900 09/25/19 02/12/23 Isosorbide Mononitrate [Isosorbide 30 mg PO DAILY@1000 11/19/19 02/12/23 Mononitrate ER] Spironolactone [Aldactone] 25 mg PO DAILY@1000 11/19/19 02/12/23 Furosemide [Lasix] 60 mg PO BID@0700,1200 01/19/20 02/12/23 Escitalopram [Lexapro] 20 mg PO DAILY@1900 04/27/20 02/12/23 ALPRAZolam [Xanax] 0.25 mg PO BID PRN 02/12/23 02/12/23 Aspirin EC [Ecotrin Low Dose] 81 mg PO DAILY@1600 02/12/23 02/12/23 Dilaudid Pain Pump 1 dose INTRATHECA DIRECTED 02/12/23 02/12/23 Gabapentin [Neurontin] 900 mg PO TID@1000,1600,2200 02/12/23 02/12/23 Sacubitril/Valsartan [Entresto 24 1 tab PO BID@1000,1600 02/12/23 02/12/23 mg-26 mg Tablet] traZODone HCL [Desyrel] 25 mg PO HS@2200 02/12/23 02/12/23 Allergies Allergy/AdvReac Type Severity Reaction Status Date / Time moxifloxacin HCl Allergy Rash/Hives Verified 02/12/23 13:07 [From Avelox] Review of Systems ROS Statement: Those systems with pertinent positive or pertinent negative responses have been documented in the HPI. ROS Other: All systems not noted in ROS Statement are negative. Past Medical History Past Medical History: Asthma, Coronary Artery Disease (CAD), Chest Pain / Angina, Heart Failure, COPD, Fibromyalgia, GERD/Reflux, Hyperlipidemia, Myocardial Infarction (HI), Musculoskeletal Disorder, Osteoarthritis (OA), Pneumonia Additional Past Medical History / Comment(s): Has Pain Pump and AICD. [place]hemic Cardiomyopathy. Hx [place] X3 - 2004, 2011, 2017. Hx bronchitis. Chronic back pain, lumbar Degenerative Disc Disease, occasional neck pain, osteoporosis, migraines. Hx UTIs, kidney stones. Vertigo. Last Myocardial Infarction Date:: 2016 History of Any Multi-Drug Resistant Organisms: None Reported Past Surgical History: AICD, Heart Catheterization, Heart Catheterization With Stent, Orthopedic Surgery, Tubal Ligation Additional Past Surgical History / Comment(s): Multiple stents, left hand surgery, pain clinic procedures, Medtronic Pain Pump surgically implanted. Past Anesthesia/Blood Transfusion Reactions: No Reported Reaction, Motion Sickness Date of Last Stent Placement:: 08-13-16 Type of Cardiac Device: AICD Device Placement Date:: 2016 [employer]. Past Psychological History: Anxiety, Bipolar, Depression Additional Psychological History / Comment(s): . Smoking Status: Current every day smoker Past Alcohol Use History: Occasional Additional Past Alcohol Use History / Comment(s): Started smoking in 1988, about 1 ppd, quit 09/21/19, restarted in 2020, 1 ppd or less. No longer drinks alcohol. Past Drug Use History: Marijuana Additional Drug Use History / Comment(s): Medical Marijuana use occasionally. - Past Family History Mother Family Medical History: Coronary Artery Disease (CAD), Fibromyalgia, Hyperlipidemia Additional Family Medical History / Comment(s): Emotional problems, bipolar. Father Family Medical History: CVA/TIA, Fibromyalgia, Hyperlipidemia, Hypertension, Musculoskeletal Disorder Additional Family Medical History / Comment(s): MS. Sister(s) History Unknown: Yes Family Medical History: Hyperlipidemia General Exam General appearance: alert, in no apparent distress Head exam: Present: atraumatic, normocephalic Eye exam: Present: normal appearance, PERRL ENT exam: Present: normal exam Neck exam: Present: normal inspection. Absent: tenderness, meningismus Respiratory exam: Present: rhonchi. Absent: respiratory distress Cardiovascular Exam: Present: regular rate, normal rhythm GI/Abdominal exam: Present: soft. Absent: distended, tenderness, guarding Extremities exam: Present: normal inspection, normal capillary refill. Absent: pedal edema, calf tenderness Neurological exam: Present: alert, oriented X3, CN II-XII intact. Absent: motor sensory deficit Psychiatric exam: Present: normal affect, normal mood Skin exam: Present: warm, dry, intact Course Vital Signs 04/23/23 04/23/23 04/23/23 07:30 08:44 08:49 Temperature 97.8 F Pulse Rate 82 64 Respiratory 18 20 18 Rate Blood Pressure 166/101 150/95 O2 Sat by Pulse 95 96 Oximetry 04/23/23 09:38 Temperature Pulse Rate 79 Respiratory 18 Rate Blood Pressure 144/98 O2 Sat by Pulse 94 L Oximetry - Reevaluation(s) Reevaluation #1: 04/23/23 08:19 Requested stat EKG. Medical Decision Making - Medical Decision Making Was pt. sent in by a medical professional or institution (, PA, [employer], urgent care, hospital, or senior care...) When possible be specific @ -No Did you speak to anyone other than the patient for history (EMS, parent, family, police, friend...)? What history was obtained from this source @ -No Did you review nursing and triage notes (agree or disagree)? Why? @ -I reviewed and agree with nursing and triage notes Were old charts reviewed (outside hosp., previous admission, EMS record, old EKG, old radiological studies, urgent care reports/EKG's, senior care records)? Report findings @ -No old charts were reviewed Differential Diagnosis (chest pain, altered mental status, abdominal pain women, abdominal pain men, vaginal bleeding, weakness, fever, dyspnea, syncope, headache, dizziness, GI bleed, back pain, seizure, CVA, palpatations, mental health, musculoskeletal)? @ -not applicable EKG interpreted by me (3pts min.). @ -[Sinus rhythm rate of 72, [place] interval 169, QRS duration 120, QTC 476, T-wave inversion in the inferior and lateral precordial leads similar compared to prior. No ST segment elevation. X-rays interpreted by me (1pt min.). @ -[Chest x-ray negative for pneumothorax, no focal pneumonia, consistent with CHF CT interpreted by me (1pt min.). @ -None done U/S interpreted by me (1pt. min.). @ -None done What testing was considered but not performed or refused? (CT, X-rays, U/S, labs)? Why? @ -None What meds were considered but not given or refused? Why? @ -None Did you discuss the management of the patient with other professionals (professionals i.e. , PA, [employer], lab, RT, psych nurse, healthcare social worker, line construction supervisor, teacher, communications officer, case loader operator)? Give summary @ -[Primary Care provider Was smoking cessation discussed for >3mins.? @ -No Was critical care preformed (if so, how long)? @ -No Were there social determinants of health that impacted care today? How? (Homelessness, low income, unemployed, alcoholism, drug addiction, transportation, low edu. Level, literacy, decrease access to med. care, group home, rehab)? @ -No Was there de-escalation of care discussed even if they declined (Discuss DNR or withdrawal of care, Hospice)? DNR status @ -No What co-morbidities impacted this encounter? (DM, HTN, Smoking, COPD, CAD, Cancer, CVA, ARF, Chemo, Hep., AIDS, mental health diagnosis, sleep apnea, morbid obesity)? @ -CHF, ischemic myopathy Was patient admitted / discharged? Hospital course, mention meds given and route, prescriptions, significant lab abnormalities, going to OR and other pertinent info. @ -[47-year-old female presenting with dyspnea, chest pain which is resolved. History of CHF and ischemic cardiomyopathy. Patient reports continued dyspnea without chest pain at the time my evaluation. Her EKG has T-wave inversions which are similar to prior, no ST segment elevation per chest x-ray consistent with CHF. She has a significantly elevated BNP at 11,000. Troponin is negative. Patient will be admitted for IV diuresis, serial cardiac enzymes, telemetry and cardiology consultation. Undiagnosed new problem with uncertain prognosis? @ -No Drug Therapy requiring intensive monitoring for toxicity (Heparin, Nitro, Insulin, Cardizem)? @ -No Were any procedures done? @ -No Diagnosis/symptom? @ -[CHF, ischemic cardiac myopathy Acute, or Chronic, or Acute on Chronic? @ -Acute on chronic Uncomplicated (without systemic symptoms) or Complicated (systemic symptoms)? @ -default Side effects of treatment? @ -No Exacerbation, Progression, or Severe Exacerbation? @ -No Poses a threat to life or bodily function? How? (Chest pain, [place], HI, pneumonia, PE, COPD, DKA, ARF, appy, cholecystitis, CVA, Diverticulitis, Homicidal, Suicidal, threat to staff... and all critical care pts) @ -[Yes, hypoxia, respiratory failure, cardiogenic shock - Lab Data Result diagrams: 04/23/23 08:37 04/23/23 08:37 Lab Results 04/23/23 04/23/23 04/23/23 Range/Units 08:37 08:37 08:37 WBC 11.2 H (3.8-10.6) k/uL RBC 4.37 (3.80-5.40) m/uL Hgb 13.4 (11.4-16.0) gm/dL Hct 41.5 (34.0-46.0) % MCV 95.1 (80.0-100.0) fL MCH 30.8 (25.0-35.0) pg MCHC 32.4 (31.0-37.0) g/dL RDW 14.9 (11.5-15.5) % Plt Count 228 (150-450) k/uL MPV 8.2 Neutrophils % 83 % Lymphocytes % 11 % Monocytes % 4 % Eosinophils % 1 % Basophils % 0 % Neutrophils # 9.4 H (1.3-7.7) k/uL Lymphocytes # 1.3 (1.0-4.8) k/uL Monocytes # 0.4 (0-1.0) k/uL Eosinophils # 0.1 (0-0.7) k/uL Basophils # 0.0 (0-0.2) k/uL PT 10.1 (9.0-12.0) sec INR 0.9 (<1.2) APTT 24.7 (22.0-30.0) sec Sodium 141 (137-145) mmol/L Potassium 4.6 (3.5-5.1) mmol/L Chloride 108 H (98-107) mmol/L Carbon Dioxide 26 (22-30) mmol/L Anion Gap 7 mmol/L BUN 12 (7-17) mg/dL Creatinine 0.78 (0.52-1.04) mg/dL Est GFR (CKD-EPI)AfAm >90 (>60 ml/min/1.73 sqM) Est GFR (CKD-EPI)NonAf >90 (>60 ml/min/1.73 sqM) Glucose 125 H (74-99) mg/dL Plasma Lactic Acid Ramsey (0.7-2.0) mmol/L Calcium 9.3 (8.4-10.2) mg/dL Magnesium 2.1 (1.6-2.3) mg/dL Total Bilirubin 0.6 (0.2-1.3) mg/dL AST 35 (14-36) U/L ALT 37 H (4-34) U/L Alkaline Phosphatase 83 (38-126) U/L Troponin I (0.000-0.034) ng/mL NT-Pro-B Natriuret Pep 68831 pg/mL Total Protein 6.7 (6.3-8.2) g/dL Albumin 3.7 (3.5-5.0) g/dL Influenza Type A (PCR) (Not Detectd) Influenza Type B (PCR) (Not Detectd) RSV (PCR) (Not Detectd) SARS-CoV-2 (PCR) (Not Detectd) 04/23/23 04/23/23 04/23/23 Range/Units 08:37 08:37 08:37 WBC (3.8-10.6) k/uL RBC (3.80-5.40) m/uL Hgb (11.4-16.0) gm/dL Hct (34.0-46.0) % MCV (80.0-100.0) fL MCH (25.0-35.0) pg MCHC (31.0-37.0) g/dL RDW (11.5-15.5) % Plt Count (150-450) k/uL MPV Neutrophils % % Lymphocytes % % Monocytes % % Eosinophils % % Basophils % % Neutrophils # (1.3-7.7) k/uL Lymphocytes # (1.0-4.8) k/uL Monocytes # (0-1.0) k/uL Eosinophils # (0-0.7) k/uL Basophils # (0-0.2) k/uL PT (9.0-12.0) sec INR (<1.2) APTT (22.0-30.0) sec Sodium (137-145) mmol/L Potassium (3.5-5.1) mmol/L Chloride (98-107) mmol/L Carbon Dioxide (22-30) mmol/L Anion Gap mmol/L BUN (7-17) mg/dL Creatinine (0.52-1.04) mg/dL Est GFR (CKD-EPI)AfAm (>60 ml/min/1.73 sqM) Est GFR (CKD-EPI)NonAf (>60 ml/min/1.73 sqM) Glucose (74-99) mg/dL Plasma Lactic Acid Ramsey 1.2 (0.7-2.0) mmol/L Calcium (8.4-10.2) mg/dL Magnesium (1.6-2.3) mg/dL Total Bilirubin (0.2-1.3) mg/dL AST (14-36) U/L ALT (4-34) U/L Alkaline Phosphatase (38-126) U/L Troponin I 0.016 (0.000-0.034) ng/mL NT-Pro-B Natriuret Pep pg/mL Total Protein (6.3-8.2) g/dL Albumin (3.5-5.0) g/dL Influenza Type A (PCR) Not Detected (Not Detectd) Influenza Type B (PCR) Not Detected (Not Detectd) RSV (PCR) Not Detected (Not Detectd) SARS-CoV-2 (PCR) Not Detected (Not Detectd) Disposition Clinical Impression: CHF (congestive heart failure) Disposition: ADMITTED IP TO THIS HOSP Condition: Stable Is patient prescribed a controlled substance at d/c from ED?: No Referrals: Brenden Rodriguez MD [Primary Care Provider] - 1-2 days Time of Disposition: 10:17
[2023-04-23 08:59] LABS: Basophils % (A) 0 %; Eosinophils # (A) 0.1 k/uL (0-0.7); Eosinophils % (A) 1 %; HCT 41.5 % (34.0-46.0); HGB 13.4 gm/dL (11.4-16.0); Lymphocytes # (A) 1.3 k/uL (1.0-4.8); Lymphocytes % (A) 11 %; MCH 30.8 pg (25.0-35.0); MCHC 32.4 g/dL (31.0-37.0); MCV 95.1 fL (80.0-100.0); Mean Platelet Volume 8.2; Monocytes # (A) 0.4 k/uL (0-1.0); Monocytes % (A) 4 %; Neutrophils # (A) 9.4 k/uL (1.3-7.7); Neutrophils % (A) 83 %; Platelet Count 228 k/uL (150-450); RBC 4.37 m/uL (3.80-5.40); RDW 14.9 % (11.5-15.5); WBC 11.2 k/uL (3.8-10.6)
[2023-04-23 09:10] LABS: INR 0.9 (<1.2); Partial Thromboplastin Time 24.7 sec (22.0-30.0); Prothrombin Time 10.1 sec (9.0-12.0)
--- NOTE | 2023-04-23 09:29 | XR ---
EXAMINATION TYPE: XR chest 2V DATE OF EXAM: 04/23/2023 COMPARISON: 02/12/2023 HISTORY: Shortness of breath TECHNIQUE: Frontal and lateral views of the chest are obtained. FINDINGS: As on the prior study there is suggestion of mild pulmonary vascular congestion. There is no airspace consolidation. The heart size normal. There is a single lead cardiac pacemaker. There is no pleural effusion or pneumothorax. The osseous structures are intact. IMPRESSION: 1. Findings similar to that seen on the prior study. 2. Possible mild pulmonary vascular congestion indicating mild CHF. Clinical correlation is recommend ed.
[2023-04-23 09:34] LABS: ALT 37 U/L (4-34); AST 35 U/L (14-36); African American GFR (CKD) >90 (>60 ml/min/1.73 sqM); Albumin 3.7 g/dL (3.5-5.0); Alkaline Phosphatase 83 U/L (38-126); Anion Gap 7 mmol/L; Blood Urea Nitrogen 12 mg/dL (7-17); Calcium 9.3 mg/dL (8.4-10.2); Carbon Dioxide 26 mmol/L (22-30); Chloride 108 mmol/L (98-107); Glucose 125 mg/dL (74-99); Magnesium 2.1 mg/dL (1.6-2.3); Non-African American GFR(CKD) >90 (>60 ml/min/1.73 sqM); Potassium 4.6 mmol/L (3.5-5.1); Sodium 141 mmol/L (137-145); Total Bilirubin 0.6 mg/dL (0.2-1.3); Total Protein 6.7 g/dL (6.3-8.2)
[2023-04-23 09:41] LABS: NT-Pro-B-Type Natriuretic Pept 11600 pg/mL
[2023-04-23] MEDS ORDERED: FUROSEMIDE 10 MG/ML 4 ML VIAL IV STA (09:58)
[2023-04-23] MEDS ORDERED: ASPIRIN 325 MG TAB PO STA (09:59)
[2023-04-23] MEDS ORDERED: ONDANSETRON 4 MG/2 ML VIAL IVP PRN (10:12)
[2023-04-23] MEDS ORDERED: NALOXONE 0.4 MG/ML 1 ML VIAL IV PRN (10:12)
[2023-04-23] MEDS ORDERED: ACETAMINOPHEN TAB 325 MG TAB PO PRN (10:12)
[2023-04-23] MEDS ORDERED: HYDROmorphone 0.5 MG/0.5 ML SYRINGE IVP PRN (10:12)
[2023-04-23 12:16] LABS: Appearance,Urine Cloudy (Clear); Bilirubin,Urine Negative (Negative); Blood,Urine Negative (Negative); Color,Urine Yellow; Glucose,Urine (UA) Negative (Negative); Ketones,Urine Trace (Negative); Leukocyte Esterase,Urine Negative (Negative); Mucus,Urine Few /hpf; Nitrite,Urine Negative (Negative); Protein,Urine Negative (Negative); RBC,Urine 1 /hpf (0-5); Specific Gravity,Urine 1.018 (1.001-1.035); Squamous Epithelial Cell,Urine 8 /hpf (0-4); WBC,Urine 4 /hpf (0-5)
--- NOTE | 2023-04-23 12:51 | P.HPIM ---
History of Present Illness H&P Date: 04/23/23 Chief Complaint: Nocturnal dyspnea Sahara is a 47-year-old white female well-known to my practice. She has significant cardiac dysfunction related to a myocardial infarction at a young age. She has significant COPD. She continues to smoke. She reports last night getting quite short of breath while sleeping and woke her up. It did not resolved. She had some mild chest tightness. She came emergency room seen and evaluated. When I have significant elevated beta santos ruretic peptide that is new. No significant EKG changes. Currently the patient is asleep easily arousable indicates about the oxygen she has more chest tightness and pain. Denies any nausea vomiting bloody or black stool Review of Systems All systems: negative Past Medical History Past Medical History: Asthma, Coronary Artery Disease (CAD), Chest Pain / Angina, Heart Failure, COPD, Fibromyalgia, GERD/Reflux, Hyperlipidemia, Myocardial Infarction ([place]), Musculoskeletal Disorder, Osteoarthritis (OA), Pneumonia Additional Past Medical History / Comment(s): Has Pain Pump and AICD. [place] rdiomyopathy. Hx [place] X3 - 2004, 2012, 2017. Hx bronchitis. Chronic back pain, lumbar Degenerative Disc Disease, occasional neck pain, osteoporosis, migraines. Hx UTIs, kidney stones. Vertigo. Last Myocardial Infarction Date:: 2016 History of Any Multi-Drug Resistant Organisms: None Reported Past Surgical History: AICD, Heart Catheterization, Heart Catheterization With Stent, Orthopedic Surgery, Tubal Ligation Additional Past Surgical History / Comment(s): Multiple stents, left hand surgery, pain clinic procedures, Medtronic Pain Pump surgically implanted. Past Anesthesia/Blood Transfusion Reactions: No Reported Reaction, Motion Sickness Date of Last Stent Placement:: 08-13-16 Type of Cardiac Device: AICD Device Placement Date:: 2016 [employer]. Past Psychological History: Anxiety, Bipolar, Depression Smoking Status: Current every day smoker Past Alcohol Use History: Occasional Past Drug Use History: Marijuana - Past Family History Mother Family Medical History: Coronary Artery Disease (CAD), Fibromyalgia, Hyperlipidemia Additional Family Medical History / Comment(s): Emotional problems, bipolar. Father Family Medical History: CVA/TIA, Fibromyalgia, Hyperlipidemia, Hypertension, Musculoskeletal Disorder Additional Family Medical History / Comment(s): MS. Sister(s) History Unknown: Yes Family Medical History: Hyperlipidemia Medications and Allergies Home Medications Medication Instructions Recorded Confirmed Type Omeprazole [PriLOSEC] 40 mg PO DAILY@0700 11/29/16 02/12/23 History Atorvastatin [Lipitor] 80 mg PO DAILY@1900 11/30/16 02/12/23 History Divalproex ER [Depakote ER] 1,000 mg PO DAILY@1200 02/06/17 02/12/23 History Alendronate Sodium 70 mg PO COHEN@0700 06/29/17 02/12/23 History HYDROcodone/APAP 7.5-325MG [[place] 1 tab PO TID PRN 09/25/19 02/12/23 History 7.5-325] Metoprolol Tartrate [Lopressor] 25 mg PO BID@1200,1900 09/25/19 02/12/23 History Isosorbide Mononitrate [Isosorbide 30 mg PO DAILY@1000 11/19/19 02/12/23 History Mononitrate ER] Spironolactone [Aldactone] 25 mg PO DAILY@1000 11/19/19 02/12/23 History Furosemide [Lasix] 60 mg PO BID@0700,1200 01/19/20 02/12/23 History Escitalopram [Lexapro] 20 mg PO DAILY@1900 04/27/20 02/12/23 History ALPRAZolam [Xanax] 0.25 mg PO BID PRN 02/12/23 02/12/23 History Aspirin EC [Ecotrin Low Dose] 81 mg PO DAILY@1600 02/12/23 02/12/23 History Dilaudid Pain Pump 1 dose INTRATHECA DIRECTED 02/12/23 02/12/23 History Gabapentin [Neurontin] 900 mg PO TID@1000,1600,219902/12/23 02/12/23 History Sacubitril/Valsartan [Entresto 24 1 tab PO BID@1000,1600 02/12/23 02/12/23 History mg-26 mg Tablet] traZODone HCL [Desyrel] 25 mg PO HS@219902/12/23 02/12/23 History Allergies Allergy/AdvReac Type Severity Reaction Status Date / Time moxifloxacin HCl Allergy Rash/Hives Verified 02/12/23 13:07 [From Avelox] Physical Exam Vitals: Vital Signs Temp Pulse Resp BP Pulse Ox 04/23/23 09:38 79 18 144/98 94 L 04/23/23 08:49 64 18 150/95 96 04/23/23 08:44 20 04/23/23 07:30 97.8 F 82 18 166/101 95 Intake and Output 04/22/23 04/23/23 04/23/23 22:59 06:59 14:59 Other: Weight 90.718 kg GENERAL: Fatigued, obese and in no acute distress. HEAD: Atraumatic, normocephalic. EYES: Pupils equal round and reactive to light, extraocular movements intact, sclera anicteric, conjunctiva are normal. ENT:nares patent, oropharynx clear without exudates. Moist mucous membranes. NECK: Normal range of motion, supple without lymphadenopathy or JVD, no thyromegaly LUNGS: Breath sounds slightly coarse but no wheezes rales or crackles, improved compared to my office visit with her several weeks ago HEART: Regular rate and rhythm without murmurs, rubs or gallops.S1S2 Normal ABDOMEN: Soft, nontender, normoactive bowel sounds. No guarding, no rebound. No masses appreciated. EXTREMITIES: Normal range of motion, no pitting or edema. No clubbing or cyanosis. NEUROLOGICAL: Cranial nerves II through XII grossly intact. Normal speech, normal gait. PSYCH: Normal mood, normal affect. SKIN: Warm, Dry, normal turgor, no rashes or lesions noted. Results CBC & Chem 7: 04/23/23 08:37 04/23/23 08:37 Labs: Abnormal Lab Results - Last 24 Hours (Table) 04/23/23 04/23/23 04/23/23 Range/Units 08:37 08:37 08:37 WBC 11.2 H (3.8-10.6) k/uL Neutrophils # 9.4 H (1.3-7.7) k/uL Chloride 108 H (98-107) mmol/L Glucose 125 H (74-99) mg/dL ALT 37 H (4-34) U/L Urine Appearance Cloudy H (Clear) Urine Ketones Trace H (Negative) Ur Squamous Epith Cells 8 H (0-4) /hpf Urine Mucus Few H (None) /hpf Chest x-ray: report reviewed Thrombosis Risk Factor Assmnt - DVT/VTE Prophylaxis DVT/VTE Prophylaxis: Pharmacologic Prophylaxis ordered - Choose All That Apply Any of the Below Risk Factors Present?: Yes Each Factor Represents 1 point: Abnormal pulmonary function (COPD), Age 41-60 years, Heart failure (<1month), Obesity (BMI >25) Thrombosis Risk Factor Assessment Total Risk Factor Score: 4 Thrombosis Risk Factor Assessment Level: Moderate Risk Assessment and Plan (1) Acute on chronic systolic (congestive) heart failure Current Visit: Yes Status: Acute Code(s): I50.23 - ACUTE ON CHRONIC SYSTOLIC (CONGESTIVE) HEART FAILURE SNOMED Code(s): 342418308 (2) Ischemic cardiomyopathy with implantable cardioverter-defibrillator (ICD) Current Visit: Yes Status: Acute Code(s): I25.5 - ISCHEMIC CARDIOMYOPATHY; Z 95.810 - PRESENCE OF AUTOMATIC (IMPLANTABLE) CARDIAC DEFIBRILLATOR SNOMED Code(s): 048902103 (3) Mixed hyperlipidemia Current Visit: Yes Status: Acute Code(s): E78.2 - MIXED HYPERLIPIDEMIA SNOMED Code(s): 126405864 (4) Valvular heart disease Current Visit: Yes Status: Acute Code(s): I38 - ENDOCARDITIS, VALVE UNSPECIFIED SNOMED Code(s): 149226 (5) COPD (chronic obstructive pulmonary disease) Current Visit: Yes Status: Acute Code(s): J44.9 - CHRONIC OBSTRUCTIVE PULMONARY DISEASE, UNSPECIFIED SNOMED Code(s): 50527994 (6) CAD (coronary artery disease) Current Visit: No Status: Acute Code(s): I25.10 - ATHSCL HEART DISEASE OF [place] CORONARY ARTERY W/O ANG PCTRS SNOMED Code(s): 28527209 (7) Chest pain Current Visit: No Status: Acute Code(s): R07.9 - CHEST PAIN, UNSPECIFIED SNOMED Code(s): 52270270 (8) History of hypertension Current Visit: No Status: Acute Code(s): Z86.79 - PERSONAL HISTORY OF OTHER DISEASES OF THE CIRCULATORY SYSTEM SNOMED Code(s): 244305864 (9) Hyperlipidemia Current Visit: No Status: Acute Code(s): E78.5 - HYPERLIPIDEMIA, UNSPECIFIED SNOMED Code(s): 70242337 (10) Ischemic cardiomyopathy Current Visit: No Status: Acute Code(s): I25.5 - ISCHEMIC CARDIOMYOPATHY SNOMED Code(s): 298568087 (11) Nicotine dependence Current Visit: No Status: Acute Code(s): F17.200 - NICOTINE DEPENDENCE, UNSPECIFIED, UNCOMPLICATED SNOMED Code(s): 71102605 (12) Shortness of breath Current Visit: No Status: Acute Code(s): R06.02 - SHORTNESS OF BREATH SNOMED Code(s): 257544157 Plan: I will order a consult for Cardiology. I will renew her home medications. We'll continue IV Lasix. Continue oxygen. Repeat labs in a.m. Subcutaneous heparin She'll be reevaluated in the next 24 hours.
[2023-04-23] MEDS ORDERED: ALPRAZolam 0.25 MG TAB PO PRN (12:52)
[2023-04-23] MEDS: NON FORMULARY DRUG (Dilaudid Pain Pump 1 DOSE) MISCELLANE SCH (14:04)
[2023-04-23] MEDS: ENOXAPARIN 40 MG/0.4 ML SYRINGE SQ SCH (14:08)
[2023-04-23] MEDS: ESCITALOPRAM 20 MG TAB PO SCH (18:04)
[2023-04-23] MEDS: SACUBITRIL/VALSARTAN 24 MG-26 MG TABLET PO SCH (18:43)
[2023-04-23] MEDS: ATORVASTATIN 80 MG TAB PO SCH (18:43)
[2023-04-23] MEDS: GABAPENTIN 300 MG CAP PO SCH ×2 (18:43→22:21)
[2023-04-23] MEDS: METOPROLOL TARTRATE 25 MG TAB PO SCH (18:44)
[2023-04-23] MEDS: ASPIRIN 81 MG PO SCH (18:44)
[2023-04-23] MEDS: HYDROcodone/APAP 7.5-325MG 1 EACH TAB PO PRN (22:20)
[2023-04-23] MEDS: FUROSEMIDE 10 MG/ML 4 ML VIAL IV SCH (22:22)
[2023-04-24] MEDS: traZODone HCL 50 MG TAB PO SCH ×2 (02:01→21:31)
[2023-04-24] MEDS: SACUBITRIL/VALSARTAN 24 MG-26 MG TABLET PO SCH ×2 (08:58→15:53)
[2023-04-24] MEDS: ENOXAPARIN 40 MG/0.4 ML SYRINGE SQ SCH (08:58)
[2023-04-24] MEDS: SPIRONOLACTONE 25 MG TAB PO SCH (08:58)
[2023-04-24] MEDS: GABAPENTIN 300 MG CAP PO SCH ×3 (08:58→21:30)
[2023-04-24] MEDS: PANTOPRAZOLE 40 MG TABLET PO SCH (08:58)
[2023-04-24] MEDS: ISOSORBIDE MONONITRATE ER 30 MG TAB.ER.24H PO SCH (08:58)
[2023-04-24] MEDS: FUROSEMIDE 10 MG/ML 4 ML VIAL IV SCH ×2 (08:59→21:32)
[2023-04-24] MEDS: HYDROcodone/APAP 7.5-325MG 1 EACH TAB PO PRN ×2 (09:07→21:30)
--- NOTE | 2023-04-24 10:47 | P.CRDCN ---
History of Present Illness History of present illness: HISTORY OF PRESENT ILLNESS: This is a 47-year-old female with a past medical history significant for congestive heart failure, ischemic cardiomyopathy, AICD implantation, hypertension, hyperlipidemia, nicotine dependence, and coronary artery disease with previous multivessel stenting. Patient follows in the office with Dr. Montoya. We have been asked to see the patient in consultation for congestive heart failure. Patient examined at the bedside in the emergency room. Patient states she was out in [place] recently visiting her daughter for a couple weeks. She s tates that she missed her flight home and had to stay in [place] longer than she thought. She states she ran out of her Lasix for approximately 2 days. She reports she has been feeling short of breath for the past 1-2 days. She reports feeling diaphoretic and having mild chest discomfort which she thinks is secondary to her shortness of breath. At the time of examination, she denies any chest pain or pressure. She denies any increase in her weight. She states she has been following a low-sodium diet. * EKG reveals sinus mechanism with T-wave inversions in inferior lateral leads * Chest xray possible mild pulmonary vascular congestion indicating mild CHF. * Laboratory data: WBC 12.2. Hemoglobin 13.4. Platelet count 228. Sodium 141. Potassium 4.6. BUN 12. Creatinine 0.78. Troponin negative 3. ProBNP 11,600. * Current home cardiac medications include Entresto 24-26mg BID, aspirin 81 mg daily, atorvastatin 80 mg daily, Zetia 10 mg daily, Lasix 60 mg twice a day, Imdur 30 mg daily, metoprolol titrate 25 mg twice a day, Aldactone 25 mg daily * Most recent echocardiogram obtained in October 2022 revealed ejection fraction 35%, moderate TR, moderate MR, moderate AR * Cardiac catheterization history: May 2020 revealing intermediate instant restenosis involving the RCA and LAD. Patent stent in the left circumflex. Medical management was recommended. REVIEW OF SYSTEMS: At the time of my exam: CONSTITUTIONAL: Denies fever or chills. HEENT: Denies blurred vision, vision changes, or eye pain. Denies hemoptysis CARDIOVASCULAR: Denies chest pain. Denies orthopnea. Denies PND. Denies palpitations RESPIRATORY: Reports shortness of breath. GASTROINTESTINAL: Denies abdominal pain. Denies nausea or vomiting. HEMATOLOGIC: Denies bleeding disorders. GENITOURINARY: Denies any blood in urine. SKIN: Denies pruitis. Denies rash. PHYSICAL EXAM: VITAL SIGNS: Reviewed. GENERAL: Well-developed in no acute distress. HEENT: Head is normocephalic. Pupils are equal, round. Sclerae anicteric. Mucous membranes of the mouth are moist. Neck supple. No JVD or thyromegaly LUNGS: Respirations even and unlabored. Lungs with bibasilar crackles, right worse than left HEART: Regular rate and rhythm. S1 and S2 heard. Systolic murmur noted. ABDOMEN: Soft. Nondistended. Nontender. EXTREMITIES: Normal range of motion. No clubbing or cyanosis. Peripheral pulses intact. No lower extremity edema NEUROLOGIC: Awake and alert. Oriented x 3. ASSESSMENT: Shortness of breath Acute on chronic heart failure with reduced ejection fraction, 35% Ischemic cardiomyopathy History of AICD implantation Hypertension Hyperlipidemia Coronary artery disease with previous multivessel stenting Nicotine dependence PLAN: Obtain 2-D echo to assess cardiac structure and function Resume home cardiac medications Continue IV Lasix 40 mg every 12 hours Daily weights, accurate I&O, and monitoring of kidney function Further recommendations pending patient's course Nurse practitioner note has been reviewed by physician. Signing provider agrees with the documented findings, assessment, and plan of care. Past Medical History Past Medical History: Asthma, Coronary Artery Disease (CAD), Chest Pain / Angina, Heart Failure, COPD, Fibromyalgia, GERD/Reflux, Hyperlipidemia, Myocardial Infarction (CA), Musculoskeletal Disorder, Osteoarthritis (OA), Pneumonia Additional Past Medical History / Comment(s): Has Pain Pump and AICD. Ishemic Cardiomyopathy. Hx CA X3 - 2004, 2012, 2017. Hx bronchitis. Chronic back pain, lumbar Degenerative Disc Disease, occasional neck pain, osteoporosis, migraines. Hx UTIs, kidney stones. Vertigo. Last Myocardial Infarction Date:: 2017 History of Any Multi-Drug Resistant Organisms: None Reported Past Surgical History: AICD, Heart Catheterization, Heart Catheterization With Stent, Orthopedic Surgery, Tubal Ligation Additional Past Surgical History / Comment(s): Multiple stents, left hand surgery, pain clinic procedures, [employer] Pain Pump surgically implanted. Past Anesthesia/Blood Transfusion Reactions: No Reported Reaction, Motion Sickness Date of Last Stent Placement:: 08-13-16 Type of Cardiac Device: AICD Device Placement Date:: 2016 [facility]. Past Psychological History: Anxiety, Bipolar, Depression Additional Psychological History / Comment(s): . Smoking Status: Current every day smoker Past Alcohol Use History: Occasional Additional Past Alcohol Use History / Comment(s): Started smoking in 1988, about 1 ppd, quit 09/21/19, restarted in 2020, 1 ppd or less. No longer drinks alcohol. Past Drug Use History: Marijuana Additional Drug Use History / Comment(s): Medical Marijuana use occasionally. - Past Family History Mother Family Medical History: Coronary Artery Disease (CAD), Fibromyalgia, Hyperlipidemia Additional Family Medical History / Comment(s): Emotional problems, bipolar. Father Family Medical History: CVA/TIA, Fibromyalgia, Hyperlipidemia, Hypertension, Musculoskeletal Disorder Additional Family Medical History / Comment(s): MS. Sister(s) History Unknown: Yes Family Medical History: Hyperlipidemia Medications and Allergies Home Medications Medication Instructions Recorded Confirmed Type Omeprazole [PriLOSEC] 40 mg PO DAILY@0700 11/29/16 04/23/23 History Atorvastatin [Lipitor] 80 mg PO DAILY@1900 11/30/16 04/23/23 History Divalproex ER [Depakote ER] 1,000 mg PO DAILY@1200 02/06/17 04/23/23 History Alendronate Sodium 70 mg PO COHEN@0700 06/29/17 04/23/23 History HYDROcodone/APAP 7.5-325MG [[place] 1 tab PO TID PRN 09/25/19 04/23/23 History 7.5-325] Metoprolol Tartrate [Lopressor] 25 mg PO BID@1200,1900 09/25/19 04/23/23 History Isosorbide Mononitrate [Isosorbide 30 mg PO DAILY@1000 11/19/19 04/23/23 History Mononitrate ER] Spironolactone [Aldactone] 25 mg PO DAILY@1000 11/19/19 04/23/23 History Furosemide [Lasix] 60 mg PO BID@0700,1200 01/19/20 04/23/23 History Escitalopram [Lexapro] 20 mg PO DAILY@1900 04/27/20 04/23/23 History ALPRAZolam [Xanax] 0.25 mg PO BID PRN 02/12/23 04/23/23 History Aspirin EC [Ecotrin Low Dose] 81 mg PO DAILY@1600 02/12/23 04/23/23 History Dilaudid Pain Pump 1 dose INTRATHECA CONTINUOUS 02/12/23 04/23/23 History Gabapentin [Neurontin] 900 mg PO TID@1000,1600,2200 02/12/23 04/23/23 History Sacubitril/Valsartan [Entresto 24 1 tab PO BID@1000,1600 02/12/23 04/23/23 History mg-26 mg Tablet] traZODone HCL [Desyrel] 25 mg PO HS@2200 02/12/23 04/23/23 History Ezetimibe [Zetia] 10 mg PO DAILY@1000 04/23/23 04/23/23 History Allergies Allergy/AdvReac Type Severity Reaction Status Date / Time moxifloxacin HCl Allergy Rash/Hives Verified 04/23/23 13:25 [From Avelox] Physical Exam Vitals: Vital Signs Temp Pulse Pulse Resp BP BP Pulse Ox 04/24/23 08:00 98.7 F 56 L 20 116/68 96 04/24/23 04:00 60 14 94 L 04/24/23 02:00 64 16 04/24/23 01:30 98.3 F 64 16 108/71 96 04/23/23 21:45 98.1 F 66 18 121/76 97 04/23/23 20:00 66 18 04/23/23 18:00 64 18 146/72 04/23/23 17:00 68 19 138/67 04/23/23 16:00 65 17 146/74 04/23/23 15:00 70 20 144/92 04/23/23 14:00 67 18 04/23/23 13:31 97.4 F L 04/23/23 13:00 64 18 136/97 84 L 04/23/23 12:00 72 20 142/100 94 L 04/23/23 11:00 97.4 F L 68 22 156/108 92 L 04/23/23 10:00 74 19 86 L Intake and Output 04/23/23 04/24/23 04/24/23 22:59 06:59 14:59 Other: Voiding Method Bedside Commode Bedside Commode # Voids 1 3 Weight 90.718 kg Results 04/23/23 08:37 04/23/23 08:37 Cardiac Enzymes 04/23/23 04/23/23 04/23/23 Range/Units 08:37 11:50 14:56 Troponin I 0.016 0.024 0.033 (0.000-0.034) ng/mL Current Medications Generic Name Dose Route Start Last Admin Trade Name Freq PRN Reason Stop Dose Admin Acetaminophen 650 mg 04/23/23 10:12 Acetaminophen Tab 325 Mg Tab PO Q6HR PRN Mild Pain or Fever > 100.5 Hydrocodone Bitart/Acetaminophen 1 each 04/23/23 12:52 04/24/23 09:07 Hydrocodone/Apap 7.5-325mg 1 Each Tab PO 1 each TID PRN Administration Pain Alprazolam 0.25 mg 04/23/23 12:52 Alprazolam 0.25 Mg Tab PO BID PRN Anxiety Aspirin 81 mg 04/23/23 16:00 04/23/23 18:44 Aspirin 81 Mg PO 81 mg DAILY@1600 [facility] Administration Atorvastatin Calcium 80 mg 04/23/23 19:00 04/23/23 18:43 Atorvastatin 80 Mg Tab PO 80 mg DAILY@1900 [facility] Administration Divalproex Sodium 1,000 mg 04/24/23 12:00 Divalproex Er 500 Mg Tab.Er.24h PO DAILY@1200 [facility] Enoxaparin Sodium 40 mg 04/23/23 13:00 04/24/23 08:58 Enoxaparin 40 Mg/0.4 Ml Syringe SQ 40 mg DAILY [facility] Administration Escitalopram Oxalate 20 mg 04/23/23 19:00 04/23/23 18:04 Escitalopram 20 Mg Tab PO Not Given DAILY@1900 [facility] Furosemide 40 mg 04/23/23 21:00 04/24/23 08:59 Furosemide 10 Mg/Ml 4 Ml Vial IV 40 mg Q12HR [facility] Administration Gabapentin 900 mg 04/23/23 16:00 04/24/23 08:58 Gabapentin 300 Mg Cap PO 900 mg TID@1000,1600,2200 [facility] Administration Hydromorphone HCl 0.5 mg 04/23/23 10:12 Hydromorphone 0.5 Mg/0.5 Ml Syringe IVP Q3HR PRN Moderate Pain (Scale 4 to 6) Isosorbide Mononitrate 30 mg 04/24/23 10:00 04/24/23 08:58 Isosorbide Mononitrate Er 30 Mg Tab.Er.24h PO 30 mg DAILY@1000 [facility] Administration Metoprolol Tartrate 25 mg 04/23/23 19:00 04/23/23 18:44 Metoprolol Tartrate 25 Mg Tab PO 25 mg BID@1200,1900 [facility] Administration Naloxone HCl 0.2 mg 04/23/23 10:12 Naloxone 0.4 Mg/Ml 1 Ml Vial IV Q2M PRN Opioid Reversal Non-Formulary Medication 1 dose 04/23/23 13:00 04/23/23 14:04 Dilaudid Pain Pump MISCELLANE Not Given DIRECTED [facility] Ondansetron HCl 4 mg 04/23/23 10:12 Ondansetron 4 Mg/2 Ml Vial IVP Q8HR PRN Nausea And Vomiting Pantoprazole Sodium 40 mg 04/24/23 07:00 04/24/23 08:58 Pantoprazole 40 Mg Tablet PO 40 mg DAILY@0700 [facility] Administration Sacubitril/Valsartan 1 each 04/23/23 16:00 04/24/23 08:58 Sacubitril/Valsartan 24 Mg-26 Mg Tablet PO 1 each BID@1000,1600 [facility] Administration Spironolactone 25 mg 04/24/23 10:00 04/24/23 08:58 Spironolactone 25 Mg Tab PO 25 mg DAILY@1000 [facility] Administration Trazodone HCl 25 mg 04/23/23 22:00 04/24/23 02:01 Trazodone Hcl 50 Mg Tab PO 25 mg HS@2200 [facility] Administration Intake and Output 04/23/23 04/24/23 04/24/23 22:59 06:59 14:59 Other: Voiding Method Bedside Commode Bedside Commode # Voids 1 3 Weight 90.718 kg 04/23/23 08:37 04/23/23 08:37
[2023-04-24] MEDS ORDERED: DIVALPROEX ER 500 MG TAB.ER.24H PO SCH (12:00)
[2023-04-24] MEDS: METOPROLOL TARTRATE 25 MG TAB PO SCH ×2 (12:05→21:32)
[2023-04-24 12:26] LABS: ALT 33 U/L (4-34); African American GFR (CKD) >90 (>60 ml/min/1.73 sqM); Albumin 3.6 g/dL (3.5-5.0); Alkaline Phosphatase 77 U/L (38-126); Anion Gap 8 mmol/L; Blood Urea Nitrogen 14 mg/dL (7-17); Carbon Dioxide 31 mmol/L (22-30); Chloride 100 mmol/L (98-107); Glucose 87 mg/dL (74-99); Non-African American GFR(CKD) >90 (>60 ml/min/1.73 sqM); Potassium 3.7 mmol/L (3.5-5.1); Sodium 139 mmol/L (137-145); Total Protein 6.9 g/dL (6.3-8.2)
[2023-04-24 12:31] LABS: NT-Pro-B-Type Natriuretic Pept 8840 pg/mL
[2023-04-24 12:40] LABS: AST 36 U/L (14-36)
[2023-04-24 12:57] LABS: Basophils % (A) 1 %; Eosinophils # (A) 0.2 k/uL (0-0.7); Eosinophils % (A) 2 %; HCT 37.3 % (34.0-46.0); HGB 12.6 gm/dL (11.4-16.0); Lymphocytes # (A) 2.7 k/uL (1.0-4.8); Lymphocytes % (A) 35 %; MCH 32.1 pg (25.0-35.0); MCHC 33.7 g/dL (31.0-37.0); MCV 95.1 fL (80.0-100.0); Mean Platelet Volume 9.6; Monocytes # (A) 0.5 k/uL (0-1.0); Monocytes % (A) 6 %; Neutrophils # (A) 4.3 k/uL (1.3-7.7); Neutrophils % (A) 55 %; Platelet Count 201 k/uL (150-450); RBC 3.93 m/uL (3.80-5.40); RDW 15.5 % (11.5-15.5); WBC 7.8 k/uL (3.8-10.6)
--- NOTE | 2023-04-24 13:06 | P.PN ---
Subjective Progress Note Date: 04/24/23 H&P Date: 04/23/23 Chief Complaint: Nocturnal dyspnea Sahara is a 47-year-old white female well-known to my practice. She has significant cardiac dysfunction related to a myocardial infarction at a young age. She has significant COPD. She continues to smoke. She reports last night getting quite short of breath while sleeping and woke her up. It did not resolved. She had some mild chest tightness. She came emergency room seen and evaluated. When I have significant elevated beta natruretic peptide that is new. No significant EKG changes. Currently the patient is asleep easily arousable indicates about the oxygen she has more chest tightness and pain. Denies any nausea vomiting bloody or black stool 04-24-23 diuresing with Lasix IV push, breathing easier, maintaining O2 sats in the mid 90s on 3 L nasal cannula. Denies chest pain, palpitations. Complains of left lateral rib cage pain possibly flank pain. Afebrile, normal WBC, renal function stable. Objective - Vital Signs Vital signs: Vital Signs Temp 98.7 F 04/24/23 08:00 Pulse 56 L 04/24/23 08:00 Resp 20 04/24/23 08:00 BP 116/68 04/24/23 08:00 Pulse Ox 96 04/24/23 08:00 FiO2 Intake & Output 04/23/23 04/24/23 04/24/23 18:59 06:59 18:59 Weight 90.718 kg 90.718 kg Other: Voiding Method Bedside Commode # Voids 3 - Exam GENERAL: Sitting up on stretcher, alert and oriented 3, no acute distress. HEENT: Atraumatic, normocephalic,pupils equal and reactive to light,conjunctiva are normal.MMM. NECK:Supple , no JVD. LUNGS: Unlabored, equal air entry, bibasilar crackles HEART: Regular rate and rhythm, systolic murmur. ABDOMEN: Soft, nontender, normoactive bowel sounds. No guarding, no rebound. No masses appreciated. EXTREMITIES: No pitting edema. No clubbing or cyanosis. NEUROLOGICAL: Cranial nerves II through XII grossly intact. No focal deficits noted. SKIN: Warm, Dry,no rashes noted. - Labs CBC & Chem 7: 04/24/23 09:58 04/24/23 09:58 Labs: Abnormal Lab Results - Last 24 Hours (Table) 04/23/23 Range/Units 08:37 Urine Appearance Cloudy H (Clear) Urine Ketones Trace H (Negative) Ur Squamous Epith Cells 8 H (0-4) /hpf Urine Mucus Few H (None) /hpf Assessment and Plan Assessment: (1) Acute on chronic systolic (congestive) heart failure Current Visit: Yes Status: Acute Code(s): I50.23 - ACUTE ON CHRONIC SYSTOLIC (CONGESTIVE) HEART FAILURE SNOMED Code(s): 827726393 (2) Ischemic cardiomyopathy with implantable cardioverter-defibrillator (ICD) Current Visit: Yes Status: Acute Code(s): I25.5 - ISCHEMIC CARDIOMYOPATHY; Z95.810 - PRESENCE OF AUTOMATIC (IMPLANTABLE) CARDIAC DEFIBRILLATOR SNOMED Code(s): 593817979 (3) Mixed hyperlipidemia Current Visit: Yes Status: Acute Code(s): E78.2 - MIXED HYPERLIPIDEMIA SNOMED Code(s): 023428355 (4) Valvular heart disease Current Visit: Yes Status: Acute Code(s): I38 - ENDOCARDITIS, VALVE UNSPECIFIED SNOMED Code(s): 030639 (5) COPD (chronic obstructive pulmonary disease) Current Visit: Yes Status: Acute Code(s): J44.9 - CHRONIC OBSTRUCTIVE PULMONARY DISEASE, UNSPECIFIED SNOMED Code(s): 89435591 (6) CAD (coronary artery disease) Current Visit: No Status: Acute Code(s): I25.10 - ATHSCL HEART DISEASE OF [place] CORONARY ARTERY W/O ANG PCTRS SNOMED Code(s): 63210712 (7) Chest pain Current Visit: No Status: Acute Code(s): R07.9 - CHEST PAIN, UNSPECIFIED SNOMED Code(s): 87352699 (8) History of hypertension Current Visit: No Status: Acute Code(s): Z86.79 - PERSONAL HISTORY OF OTHER DISEASES OF THE CIRCULATORY SYSTEM SNOMED Code(s): 098753291 (9) Hyperlipidemia Current Visit: No Status: Acute Code(s): E78.5 - HYPERLIPIDEMIA, UNSPECIFIED SNOMED Code(s): 95177788 (10) Ischemic cardiomyopathy Current Visit: No Status: Acute Code(s): I25.5 - ISCHEMIC CARDIOMYOPATHY SNOMED Code(s): 563258986 (11) Nicotine dependence Current Visit: No Status: Acute Code(s): F17.200 - NICOTINE DEPENDENCE, UNS PECIFIED, UNCOMPLICATED SNOMED Code(s): 74208832 (12) Shortness of breath Current Visit: No Status: Acute Code(s): R06.02 - SHORTNESS OF BREATH SNOMED Code(s): 004948452 (13) morbid obesity, BMI 37 Plan: Continue on current medication regime ,monitoring and symptomatic treatment. UA with culture .Diuretics as per cardiology. Strict I&O's. Echo pending. Increase ambulation as tolerated. The impression and plan of care has been dictated as directed. : I performed a history and examination of this patient, discussed the same with the dictator. I agree with the dictator's note ,documented as a scribe. Any additional findings or plans will be noted.
[2023-04-24] MEDS: ASPIRIN 81 MG PO SCH (15:52)
[2023-04-24] MEDS: NON FORMULARY DRUG (Dilaudid Pain Pump 1 DOSE) MISCELLANE SCH (17:00)
[2023-04-24 19:14] LABS: Appearance,Urine Cloudy (Clear); Bacteria,Urine Rare /hpf; Bilirubin,Urine 1+ (Negative); Blood,Urine Negative (Negative); Color,Urine Yellow; Glucose,Urine (UA) Negative (Negative); Ketones,Urine Negative (Negative); Leukocyte Esterase,Urine Trace (Negative); Mucus,Urine Few /hpf; Nitrite,Urine Negative (Negative); Protein,Urine Trace (Negative); RBC,Urine 3 /hpf (0-5); Specific Gravity,Urine 1.025 (1.001-1.035); Squamous Epithelial Cell,Urine 17 /hpf (0-4); Urobilinogen,Urine >12.0 mg/dL (<2.0); WBC,Urine 7 /hpf (0-5)
[2023-04-24 19:44] LABS: Calcium Oxalate Crystals,Urine Few /hpf; Hyaline Casts,Urine 1 /lpf (0-2)
[2023-04-24 20:06] VITALS: RESP 18
[2023-04-24] MEDS: ATORVASTATIN 80 MG TAB PO SCH (21:30)
[2023-04-24] MEDS: ESCITALOPRAM 20 MG TAB PO SCH (21:32)
[2023-04-25] MEDS: PANTOPRAZOLE 40 MG TABLET PO SCH (06:35)
[2023-04-25] MEDS: HYDROcodone/APAP 7.5-325MG 1 EACH TAB PO PRN (06:39)
[2023-04-25 07:18] LABS: African American GFR (CKD) >90 (>60 ml/min/1.73 sqM); Anion Gap 7 mmol/L; Blood Urea Nitrogen 16 mg/dL (7-17); Calcium 8.8 mg/dL (8.4-10.2); Carbon Dioxide 33 mmol/L (22-30); Chloride 99 mmol/L (98-107); Glucose 91 mg/dL (74-99); Non-African American GFR(CKD) >90 (>60 ml/min/1.73 sqM); Potassium 4.1 mmol/L (3.5-5.1); Sodium 139 mmol/L (137-145)
[2023-04-25] MEDS: GABAPENTIN 300 MG CAP PO SCH (09:18)
[2023-04-25] MEDS: ISOSORBIDE MONONITRATE ER 30 MG TAB.ER.24H PO SCH (09:18)
[2023-04-25] MEDS: SPIRONOLACTONE 25 MG TAB PO SCH (09:19)
[2023-04-25] MEDS: FUROSEMIDE 10 MG/ML 4 ML VIAL IV SCH (09:19)
[2023-04-25] MEDS: ENOXAPARIN 40 MG/0.4 ML SYRINGE SQ SCH (09:19)
[2023-04-25] MEDS: SACUBITRIL/VALSARTAN 24 MG-26 MG TABLET PO SCH (09:20)
[2023-04-25 10:41] VITALS: BP 101/63; PULSE 51; TEMP 98.3
--- NOTE | 2023-04-25 12:56 | CA ---
Transthoracic Echo Report Name: Sahara Denise Age: 47 Gender: F : 1975 Exam Date: 04/25/2023 08:09 Exam Location: [place] [facility] Ht (in): 62 Wt (lb): 200 Ordering Physician: Anuradha Lyons Attending/Referring Phys: [id number], Eloy [employer] Tawny Esparza [facility] Procedure CPT: Indications: LV function, CHF Cardiac Hx: Technical Quality: Technically difficult study Contrast 1: Lumason Total Dose (mL): 5 Contrast 2: Total Dose (mL): MEASUREMENTS (Male / Female) Normal Values 2D ECHO LV Diastolic Diameter PLAX 6.5 cm 4.2 - 5.9 / 3.9 - 5.3 cm LV Systolic Diameter PLAX 5.8 cm IVS Diastolic Thickness 0.7 cm 0.6 - 1.0 / 0.6 - 0.9 cm LVPW Diastolic Thickness 0.9 cm 0.6 - 1.0 / 0.6 - 0.9 cm LV Relative Wall Thickness 0.2 LVOT Diameter 2.0 cm LV Diastolic Volume MOD BP 183.0 cm??? 67 - 155 / 56 - 104 cm??? LV Systolic Volume MOD BP 125.8 cm??? 22 - 58 / 19 - 49 cm??? LV Ejection Fraction MOD BP 31.3 % >= 55 % LV Cardiac Index MOD BP 1404.6 cm???/min???m??? LV Diastolic Volume MOD 4C 190.7 cm??? LV Systolic Volume MOD 4C 124.4 cm??? LV Ejection Fraction MOD 4C 34.8 % LV Cardiac Index MOD 4C 1628.0 cm???/min???m??? LV Diastolic Length 4C 9.0 cm LV Systolic Length 4C 8.7 cm LV Diastolic Volume MOD 2C 161.6 cm??? LV Systolic Volume MOD 2C 118.2 cm??? LV Ejection Fraction MOD 2C 26.9 % LV Cardiac Index MOD 2C 1066.5 cm???/min???m??? LV Diastolic Length 2C 9.8 cm LV Systolic Length 2C 8.0 cm Ascending Aorta Diameter 3.8 cm M-MODE Aortic Root Diameter MM 2.9 cm LA Systolic Diameter MM 3.7 cm LA Ao Ratio MM 1.3 AV Cusp Separation MM 1.9 cm DOPPLER AV Peak Velocity 167.1 cm/s AV Peak Gradient 11.2 mmHg AV Mean Velocity 118.4 cm/s AV Mean Gradient 6.3 mmHg AV Velocity Time Integral 37.1 cm AI Peak Velocity 326.5 cm/s AI Peak Gradient 42.6 mmHg AI Pressure Half Time 1070.9 ms LVOT Peak Velocity 128.1 cm/s LVOT Peak Gradient 6.6 mmHg LVOT Velocity Time Integral 27.0 cm LVOT Stroke Volume 86.3 cm??? LVOT Stroke Volume Index 45.1 ml/m??? LVOT Cardiac Index 2118.1 cm???/min???m??? AV Area Cont Eq vti 2.3 cm??? AV Area Cont Eq pk 2.4 cm??? Mitral E Point Velocity 48.6 cm/s Mitral A Point Velocity 65.8 cm/s Mitral E to A Ratio 0.7 MV Deceleration Time 175.6 ms LV E' Lateral Velocity 4.8 cm/s Mitral E to LV E' Lateral Ratio 10.0 LV E' Septal Velocity 4.8 cm/s Mitral E to LV E' Septal Ratio 10.0 TR Peak Velocity 278.1 cm/s TR Peak Gradient 30.9 mmHg Right Atrial Pressure 3.0 mmHg Pulmonary Artery Systolic Pressu 33.9 mmHg Right Ventricular Systolic Press 33.9 mmHg FINDINGS Left Ventricle Left ventricular wall thickness normal. [place] hypokinetic. Left ventricular ejection fraction is estimated at 25-30%. Severely increased left ventricular diastolic diameter. Severely increased left ventricular diastolic volume. Severely increased left ventricular systolic volume. Severly decreased left ventricular ejection fraction. [place] hypokinetic. Right Ventricle Right ventricle not well visualized. Mild pulmonary hypertension. Catheter/pacemaker wire in the right ventricular cavity. Right Atrium Normal right atrial size. Left Atrium Moderate left atrial dilatation. Mitral Valve Mitral valve not well visualized. Trace mitral regurgitation. Aortic Valve Aortic valve not well visualized. Mild-moderate aortic regurgitation. Tricuspid Valve Tricuspid valve not well visualized. Trace tricuspid regurgitation. Pulmonic Valve Pulmonic valve not well visualized. Pericardium Minimal pericardial effusion (normal variant). Echo free space anterior to the right ventricle likely represents a fat pad. Aorta Normal size aortic root and upper normal proximal ascending aorta. CONCLUSIONS Cardiomyopathy with severe LV dysfunction with an ejection fraction of 25% Mild to moderate aortic regurgitation Previewed by: Dr. Blake Herrera MD (Electronically Signed) Final Date: 25 April 2023 12:55
--- NOTE | 2023-04-25 13:18 | P.DS ---
Providers Date of admission: 04/23/23 10:12 Expected date of discharge: 04/25/23 Attending physician: Brenden Rodriguez Consults: 04/23/23 10:12 Consult Physician Routine Consulting Provider: Ashish Borja Consult Reason/Comments: CHF Do you want consulting provider notified?: Yes Primary care physician: [facility] [place] Course: Final Diagnoses: (1) Acute on chronic systolic (congestive) heart failure EF 25% Current Visit: Yes Status: Acute Code(s): I50.23 - ACUTE ON CHRONIC SYSTOLIC (CONGESTIVE) HEART FAILURE SNOMED Code(s): 781226350 (2) Ischemic cardiomyopathy with implantable cardioverter-defibrillator (ICD) Current Visit: Yes Status: Acute Code(s): I25.5 - ISCHEMIC CARDIOMYOPATHY; Z95.810 - PRESENCE OF AUTOMATIC (IMPLANTABLE) CARDIAC DEFIBRILLATOR SNOMED Code(s): 142372606 (3) Mixed hyperlipidemia Current Visit: Yes Status: Acute Code(s): E78.2 - MIXED HYPERLIPIDEMIA SNOMED Code(s): 936023699 (4) Valvular heart disease Current Visit: Yes Status: Acute Code(s): I38 - ENDOCARDITIS, VALVE UNSPECIFIED SNOMED Code(s): 902703 (5) COPD (chronic obstructive pulmonary disease) Current Visit: Yes Status: Acute Code(s): J44.9 - CHRONIC OBSTRUCTIVE PULMONARY DISEASE, UNSPECIFIED SNOMED Code(s): 30229690 (6) CAD (coronary artery disease) Current Visit: No Status: Acute Code(s): I25.10 - ATHSCL HEART DISEASE OF [place] CORONARY ARTERY W/O ANG PCTRS SNOMED Code(s): 47431755 (7) Chest pain Current Visit: No Status: Acute Code(s): R07.9 - CHEST PAIN, UNSPECIFIED SNOMED Code(s): 57389892 (8) History of hypertension Current Visit: No Status: Acute Code(s): Z86.79 - PERSONAL HISTORY OF OTHER DISEASES OF THE CIRCULATORY SYSTEM SNOMED Code(s): 865007924 (9) Hyperlipidemia Current Visit: No Status: Acute Code(s): E78.5 - HYPERLIPIDEMIA, UNSPECIFIED SNOMED Code(s): 75729604 (10) Ischemic cardiomyopathy Current Visit: No Status: Acute Code(s): I25.5 - ISCHEMIC CARDIOMYOPATHY SNOMED Code(s): 522930185 (11) Nicotine dependence Current Visit: No Status: Acute Code(s): F17.200 - NICOTINE DEPENDENCE, UNSPECIFIED, UNCOMPLICATED SNOMED Code(s): 20902716 (12) Shortness of breath Current Visit: No Status: Acute Code(s): R06.02 - SHORTNESS OF BREATH SNOMED Code(s): 014486007 (13) morbid obesity, BMI 37 Hospital course:Sahara is a 47-year-old white female well-known to my practice. She has significant cardiac dysfunction related to a myocardial infarction at a young age. She has significant COPD. She continues to smoke. She reports last night getting quite short of breath while sleeping and woke her up. It did not resolved. She had some mild chest tightness. She came emergency room seen and evaluated. When I have significant elevated beta natruretic peptide that is new. No significant EKG changes. Currently the patient is asleep easily arousable indicates about the oxygen she has more chest tightness and pain. Denies any nausea vomiting bloody or black stool 04-24-23 diuresing with Lasix IV push, breathing easier, maintaining O2 sats in the mid 90s on 3 L nasal cannula. Denies chest pain, palpitations. Complains of left lateral rib cage pain possibly flank pain. Afebrile, normal WBC, renal function stable. Echo reported cardiomyopathy with severe LV dysfunction, EF 25%, [id number] aortic regurgitation .Diuresed well, transition to patient's home dose of oral Lasix, maintaining O2 sats in the 90s on room air. Significant clinical improvement. Denies chest pain, palpitations or increasing shortness of breath. Denies lightheadedness, dizziness or focal deficits. Cleared by cardiology for discharge. Patient will be discharged home today in a stable condition with guarded prognosis. The impression and plan of care has been dictated as directed. : I performed a history and examination of this patient, discussed the same with the dictator. I agree with the dictator's note ,documented as a scribe. Any additional findings or plans will be noted. Patient Condition at Discharge: Stable Plan - Discharge Summary Discharge Rx Participant: Yes New Discharge Prescriptions: Continue Omeprazole [PriLOSEC] 40 mg PO DAILY@0700 Atorvastatin [Lipitor] 80 mg PO DAILY@1900 Divalproex ER [Depakote ER] 1,000 mg PO DAILY@1200 Alendronate Sodium 70 mg PO COHEN@0700 HYDROcodone/APAP 7.5-325MG [[place] 7.5-325] 1 tab PO TID PRN PRN Reason: Pain Metoprolol Tartrate [Lopressor] 25 mg PO BID@1200,1900 Spironolactone [Aldactone] 25 mg PO DAILY@1000 Isosorbide Mononitrate [Isosorbide Mononitrate ER] 30 mg PO DAILY@1000 Furosemide [Lasix] 60 mg PO BID@0700,1200 Escitalopram [Lexapro] 20 mg PO DAILY@1900 Gabapentin [Neurontin] 900 mg PO TID@1000,1600,2200 Sacubitril/Valsartan [Entresto 24 mg-26 mg Tablet] 1 tab PO BID@1000,1600 Ezetimibe [Zetia] 10 mg PO DAILY@1000 Aspirin EC [Ecotrin Low Dose] 81 mg PO DAILY@1600 traZODone HCL [Desyrel] 25 mg PO HS@2200 ALPRAZolam [Xanax] 0.25 mg PO BID PRN PRN Reason: Anxiety Dilaudid Pain Pump 1 dose INTRATHECA CONTINUOUS Discharge Medication List Omeprazole [PriLOSEC] 40 mg PO DAILY@0700 11/29/16 [History] Atorvastatin [Lipitor] 80 mg PO DAILY@1900 11/30/16 [History] Divalproex ER [Depakote ER] 1,000 mg PO DAILY@1200 02/06/17 [History] Alendronate Sodium 70 mg PO COHEN@0700 06/29/17 [History] HYDROcodone/APAP 7.5-325MG [[place] 7.5-325] 1 tab PO TID PRN 09/25/19 [History] Metoprolol Tartrate [Lopressor] 25 mg PO BID@1200,1900 09/25/19 [History] Isosorbide Mononitrate [Isosorbide Mononitrate ER] 30 mg PO DAILY@1000 11/19/19 [History] Spironolactone [Aldactone] 25 mg PO DAILY@1000 11/19/19 [History] Furosemide [Lasix] 60 mg PO BID@0700,1200 01/19/20 [History] Escitalopram [Lexapro] 20 mg PO DAILY@1900 04/27/20 [History] ALPRAZolam [Xanax] 0.25 mg PO BID PRN 02/12/23 [History] Aspirin EC [Ecotrin Low Dose] 81 mg PO DAILY@1600 02/12/23 [History] Dilaudid Pain Pump 1 dose INTRATHECA CONTINUOUS 02/12/23 [History] Gabapentin [Neurontin] 900 mg PO TID@1000,1600,219902/12/23 [History] Sacubitril/Valsartan [Entresto 24 mg-26 mg Tablet] 1 tab PO BID@1000,1600 02/12/23 [History] traZODone HCL [Desyrel] 25 mg PO HS@219902/12/23 [History] Ezetimibe [Zetia] 10 mg PO DAILY@1000 04/23/23 [History] Follow up Appointment(s)/Referral(s): Brenden Rodriguez MD [Primary Care Provider] - 05/03/23 10:15 am (REGGIE Muir) Patient Instructions/Handouts: Heart Failure (DC) Discharge Disposition: HOME SELF-CARE
--- NOTE | 2023-04-25 13:29 | P.PN ---
Subjective HISTORY OF PRESENT ILLNESS: This is a 47-year-old female with a past medical history significant for congestive heart failure, ischemic cardiomyopathy, AICD implantation, hypertension, hyperlipidemia, nicotine dependence, and coronary artery disease with previous multivessel stenting. Patient follows in the office with Dr. Montoya. We have been asked to see the patient in consultation for congestive heart failure. Patient examined at the bedside in the emergency room. Patient states she was out in [place] recently visiting her daughter for a couple weeks. She states that she missed her flight home and had to stay in [place] longer than she thought. She states she ran out of her Lasix for approximately 2 days. She reports she has been feeling short of breath for the past 1-2 days. She reports feeling diaphoretic and having mild chest discomfort which she thinks is secondary to her shortness of breath. At the time of examination, she denies any chest pain or pressure. She denies any increase in her weight. She states she has been following a low-sodium diet. * EKG reveals sinus mechanism with T-wave inversions in inferior lateral leads * Chest xray possible mild pulmonary vascular congestion indicating mild CHF. * Laboratory data: WBC 12.2. Hemoglobin 13.4. Platelet count 228. Sodium 141. Potassium 4.6. BUN 12. Creatinine 0.78. Troponin negative 3. ProBNP 11,600. * Current home cardiac medications include Entresto 24-26mg BID, aspirin 81 mg daily, atorvastatin 80 mg daily, Zetia 10 mg daily, Lasix 60 mg twice a day, Imdur 30 mg daily, metoprolol titrate 25 mg twice a day, Aldactone 25 mg daily * Most recent echocardiogram obtained in October 2022 revealed ejection fraction 35%, moderate TR, moderate MR, moderate AR * Cardiac catheterization history: May 2020 revealing intermediate instant restenosis involving the RCA and LAD. Patent stent in the left circumflex. Medical management was recommended. 04/25/2023 Patient examined this morning at the bedside. Patient denies chest pain or pressure. She denies shortness of breath. She remains on IV Lasix. Vital signs are stable. Echocardiogram revealing ejection fraction 25-30%. PHYSICAL EXAM: VITAL SIGNS: Reviewed. GENERAL: Well-developed in no acute distress. HEENT: Head is normocephalic. Pupils are equal, round. Sclerae anicteric. Mucous membranes of the mouth are moist. Neck supple. No JVD or thyromegaly LUNGS: Respirations even and unlabored. Lungs with mild wheezing noted HEART: Regular rate and rhythm. S1 and S2 heard. Systolic murmur noted. ABDOMEN: Soft. Nondistended. Nontender. EXTREMITIES: Normal range of motion. No clubbing or cyanosis. Peripheral pulses intact. No lower extremity edema NEUROLOGIC: Awake and alert. Oriented x 3. ASSESSMENT: Shortness of breath Acute on chronic heart failure with reduced ejection fraction, 35% Ischemic cardiomyopathy History of AICD implantation Hypertension Hyperlipidemia Coronary artery disease with previous multivessel stenting Nicotine dependence PLAN: Discontinue IV Lasix Resume home dose of oral Lasix Continue additional cardiac medications Patient is stable for discharge home today from a cardiac standpoint Nurse practitioner note has been reviewed by physician. Signing provider agrees with the documented findings, assessment, and plan of care. Objective - Vital Signs Vital signs: Vital Signs Temp 98.3 F 04/25/23 09:25 Pulse 51 L 04/25/23 09:25 Resp 18 04/25/23 09:25 BP 101/63 04/25/23 09:25 Pulse Ox 91 L 04/25/23 09:25 FiO2 21 04/25/23 08:10 Intake & Output 04/24/23 04/25/23 04/25/23 18:59 06:59 18:59 Intake Total 1880 Output Total 1200 1900 800 Balance 680 -1900 -800 Weight 90.9 kg Intake: Oral 1880 Output: Urine 1200 1900 800 Other: Voiding Method Toilet - Labs CBC & Chem 7: 04/24/23 09:58 04/25/23 06:29 Labs: Abnormal Lab Results - Last 24 Hours (Table) 04/24/23 04/25/23 Range/Units 18:40 06:29 Carbon Dioxide 33 H (22-30) mmol/L Urine Appearance Cloudy H (Clear) Urine Protein Trace H (Negative) Urine Bilirubin 1+ H (Negative) Ur Leukocyte Esterase Trace H (Negative) Urine WBC 7 H (0-5) /hpf Ur Squamous Epith Cells 17 H (0-4) /hpf Calcium Oxalate Crystal Few H (None) /hpf Urine Bacteria Rare H (None) /hpf Urine Mucus Few H (None) /hpf Microbiology - Last 24 Hours (Table) 04/23/23 08:37 Blood Culture - Preliminary Blood 04/23/23 08:37 Blood Culture - Preliminary Blood
[2023-04-25] MEDS ORDERED: FUROSEMIDE 20 MG TAB PO SCH (16:00)
== END 2023-04-25 11:56 | disposition home or self-care (01) | DRG 291 ==
LOC: EC 07:00 → 3SCARD 10:12
PROVIDERS: ADMIT Family Medicine; ATTEND Family Medicine
DX: I11.0 Hypertensive heart disease with heart failure (principal); I50.23 Acute on chronic systolic (congestive) heart failure; F41.9 Anxiety disorder, unspecified; F31.9 Bipolar disorder, unspecified; F17.210 Nicotine dependence, cigarettes, uncomplicated; Z20.822 Contact with and (suspected) exposure to COVID-19; I25.10 Atherosclerotic heart disease of native coronary artery without angina pectoris; J44.9 Chronic obstructive pulmonary disease, unspecified; M81.0 Age-related osteoporosis without current pathological fracture; G89.29 Other chronic pain; M51.36 Other intervertebral disc degeneration, lumbar region; E78.2 Mixed hyperlipidemia; E66.01 Morbid (severe) obesity due to excess calories; Z68.37 Body mass index [BMI] 37.0-37.9, adult; I25.5 Ischemic cardiomyopathy; R01.1 Cardiac murmur, unspecified; I08.3 Combined rheumatic disorders of mitral, aortic and tricuspid valves; I25.2 Old myocardial infarction; M79.7 Fibromyalgia; M19.90 Unspecified osteoarthritis, unspecified site; Z87.01 Personal history of pneumonia (recurrent); Z87.440 Personal history of urinary (tract) infections; Z98.51 Tubal ligation status; Z87.442 Personal history of urinary calculi; Z79.82 Long term (current) use of aspirin; Z79.899 Other long term (current) drug therapy; Z82.49 Family history of ischemic heart disease and other diseases of the circulatory system; Z95.5 Presence of coronary angioplasty implant and graft; Z95.810 Presence of automatic (implantable) cardiac defibrillator; Z88.8 Allergy status to other drugs, medicaments and biological substances
CPT/HCPCS: 36415; 71046; 80048; 80053; 81001; 83605; 83735; 83880; 84484; 85025; 85610; 85730; 87040; 87636; 93005; 93306; 94760; 96372; 96374; 99285

== ENCOUNTER → 2023-05-03 | Outpatient (CLI) | payer MEDICARE ==
--- NOTE | 2023-05-03 15:32 | CT ---
EXAMINATION TYPE: CT brain shital shepard DATE OF EXAM: 05/03/2023 COMPARISON: 09/08/2021 HISTORY: fall, bruise to right side of forehead, lethargic CT DLP: 793.[address] Brain: Unenhanced CT of the brain was performed. The ventricles, basal cisterns and sulci overlying the cerebral convexities demonstrate a normal appe arance. There is no evidence for intracranial hemorrhage or sulcal effacement. No mass effects are seen. If symptoms persist consider MRI. Osseous calvarium is intact. IMPRESSION: No acute intracranial process CT Cervical Spine: Unenhanced CT of the cervical spine was performed with bone and soft tissue window settings submitted . Coronal and sagittal reconstruction is obtained. There is normal alignment and prevertebral soft tissues. I do not see evidence for fracture or sublu xation. No significant degenerative changes are present. The lung apices are clear. IMPRESSION: No evidence for acute fracture or subluxation of the cervical spine.
== END | disposition home or self-care (01) ==
LOC: RADCTMAIN 14:57
PROVIDERS: ATTEND Family Medicine
DX: G47.9 Sleep disorder, unspecified (principal); R11.0 Nausea; R42 Dizziness and giddiness; R53.83 Other fatigue; W10.9XXA Fall (on) (from) unspecified stairs and steps, initial encounter
CPT/HCPCS: 70450; 72125

== ENCOUNTER → 2024-01-16 | Outpatient (CLI) | payer MEDICARE ==
--- NOTE | 2024-01-16 13:18 | US ---
EXAMINATION TYPE: US venous doppler duplex LE LT DATE OF EXAM: 01/16/2024 1:02 PM COMPARISON: US 2022 CLINICAL INDICATION: Female, 48 years old with history of M79.662 PAIN IN LEFT CALF; Left leg pain an d swelling SIDE PERFORMED: Left TECHNIQUE: The lower extremity deep venous system is examined utilizing real time linear array sonog chester with graded compression, doppler sonography and color-flow sonography. VESSELS IMAGED: Common Femoral Vein Deep Femoral Vein Greater Saphenous Vein * Femoral Vein Popliteal Vein Small Saphenous Vein * Proximal Calf Veins (* superficial vessels) Left Leg: Appears negative for DVT IMPRESSION: Grayscale, color doppler, spectral doppler imaging performed of the deep veins of the lo wer extremities. There is normal flow, compressibility, vascular waveforms.
[2024-01-16 18:24] LABS: Basophils # (A) 0.05 X 10*3/uL (0.00-0.10); Basophils % (A) 0.5 %; Eosinophils # (A) 0.43 X 10*3/uL (0.04-0.35); Eosinophils % (A) 3.9 %; HCT 39.8 % (37.2-46.3); HGB 13.1 g/dL (12.0-15.0); Lymphocytes # (A) 4.55 X 10*3/uL (0.90-5.00); Lymphocytes % (A) 41.4 %; MCH 30.3 pg (27.0-32.0); MCHC 32.9 g/dL (32.0-37.0); MCV 91.9 FL (80.0-97.0); Mean Platelet Volume 9.6 FL (9.5-12.2); Monocytes # (A) 0.84 X 10*3/uL (0.20-1.00); Monocytes % (A) 7.6 %; NRBC Per 100 WBC 0 X 10*3/uL (0.00-0.01); Neutrophils # (A) 5.03 X 10*3/uL (1.80-7.70); Neutrophils % (A) 45.7 %; Platelet Count 329 X 10*3/uL (140-440); RBC 4.33 X 10*6/uL (4.10-5.20); RDW 15.2 % (11.5-14.5)
[2024-01-16 20:13] LABS: NT-Pro-B-Type Natriuretic Pept 892 pg/mL (0-125)
[2024-01-16 22:04] LABS: ALT 64 U/L (8-44); AST 29 U/L (13-35); Albumin 4.1 g/dL (3.8-4.9); Albumin/Globulin Ratio 1.52 Ratio (1.60-3.17); Alkaline Phosphatase 131 U/L (41-126); Blood Urea Nitrogen 21.3 mg/dL (9.0-27.0); Calcium 9.5 mg/dL (8.7-10.3); Carbon Dioxide 27.7 mmol/L (21.6-31.8); Chloride 92 mmol/L (96-109); Globulin 2.7 g/dL (1.6-3.3); Glucose 104 mg/dL (70-110); Potassium 4.6 mmol/L (3.5-5.5); Sodium 138 mmol/L (135-145); Total Bilirubin 0.3 mg/dL (0.3-1.2); Total Protein 6.8 g/dL (6.2-8.2)
== END | disposition home or self-care (01) ==
LOC: RADUSWWP 12:39
PROVIDERS: ATTEND Family Medicine
DX: Z09 Encounter for follow-up examination after completed treatment for conditions other than malignant neoplasm (principal); M79.662 Pain in left lower leg; I11.0 Hypertensive heart disease with heart failure; I50.22 Chronic systolic (congestive) heart failure; I20.9 Angina pectoris, unspecified; I25.2 Old myocardial infarction; I25.119 Atherosclerotic heart disease of native coronary artery with unspecified angina pectoris; J44.9 Chronic obstructive pulmonary disease, unspecified
CPT/HCPCS: 80053; 83880; 85025

== ENCOUNTER → 2024-01-19 | Outpatient (CLI) | payer MEDICARE ==
--- NOTE | 2024-01-19 13:21 | XR ---
EXAMINATION TYPE: XR foot complete LT DATE OF EXAM: 01/19/2024 1:12 PM CLINICAL INDICATION:Female, 48 years old with history of M79.672 PAIN IN LEFT FOOT; COMPARISON: None TECHNIQUE: XR foot complete LT examined in the AP, oblique, and lateral projections. FINDINGS: No evidence of any acute osseous pathology. Sclerotic focus within the first digit proximal phalanx likely representing bone island. Soft tissue swelling throughout the foot. IMPRESSION: Soft tissue swelling around the foot correlate for colitis.
== END | disposition home or self-care (01) ==
LOC: RADXRMAIN 12:53
PROVIDERS: ATTEND Family Medicine
DX: M79.89 Other specified soft tissue disorders (principal); M79.672 Pain in left foot

== ENCOUNTER 2024-01-25 | Inpatient (IN) | payer MEDICARE ==
[2024-01-25 01:29] LABS: ALT 34 U/L (4-34); African American GFR (CKD) 54 (>60 ml/min/1.73 sqM); Albumin 3.6 g/dL (3.5-5.0); Anion Gap 5 mmol/L; Blood Urea Nitrogen 56 mg/dL (7-17); Calcium 9.5 mg/dL (8.4-10.2); Carbon Dioxide 31 mmol/L (22-30); Chloride 90 mmol/L (98-107); Glucose 90 mg/dL (74-99); Non-African American GFR(CKD) 47 (>60 ml/min/1.73 sqM); Sodium 126 mmol/L (137-145); Total Bilirubin 0.6 mg/dL (0.2-1.3); Total Protein 6.1 g/dL (6.3-8.2)
[2024-01-25 01:32] LABS: Alkaline Phosphatase 95 U/L (38-126)
[2024-01-25 01:33] LABS: AST 28 U/L (14-36); Magnesium 2.4 mg/dL (1.6-2.3)
[2024-01-25 01:34] LABS: INR 0.9 (<1.2); Partial Thromboplastin Time 25.4 sec (22.0-30.0); Prothrombin Time 9.8 sec (10.0-12.5)
[2024-01-25 01:35] LABS: Potassium 6.2 mmol/L (3.5-5.1)
[2024-01-25 01:38] LABS: NT-Pro-B-Type Natriuretic Pept 499 pg/mL
[2024-01-25 01:39] LABS: Basophils % (A) 1 %; Eosinophils # (A) 0.4 k/uL (0-0.7); Eosinophils % (A) 6 %; HCT 34.2 % (34.0-46.0); HGB 11.4 gm/dL (11.4-16.0); Lymphocytes # (A) 1.9 k/uL (1.0-4.8); Lymphocytes % (A) 30 %; MCH 31.3 pg (25.0-35.0); MCHC 33.2 g/dL (31.0-37.0); MCV 94.1 fL (80.0-100.0); Mean Platelet Volume 7.9; Monocytes # (A) 0.8 k/uL (0-1.0); Monocytes % (A) 13 %; Neutrophils % (A) 46 %; Platelet Count 232 k/uL (150-450); RBC 3.63 m/uL (3.80-5.40); RDW 14.4 % (11.5-15.5); WBC 6.4 k/uL (3.8-10.6)
[2024-01-25] MEDS: SODIUM CHLORIDE 0.9% 500 ML 500 ML IV STA ×2 (02:00→02:38)
[2024-01-25] MEDS: ASPIRIN 81 MG PO STA (02:00)
[2024-01-25] MEDS: methylPREDNISolone SOD SUCCI 125 MG/2 ML VIAL IV STA (02:01)
[2024-01-25] MEDS: MAGNESIUM SULFATE-D5W PMX 1 GM in DEXTROSE/WATER 1 100ML.BAG IVPB STA (02:02)
[2024-01-25] MEDS: IPRATROPIUM-ALBUTEROL 3 ML NEB INHALATION STA (02:11)
--- NOTE | 2024-01-25 02:18 | CT ---
EXAM: CT Angiography Chest With Intravenous Contrast CLINICAL HISTORY: eval for PE TECHNIQUE: Axial computed tomographic angiography images of the chest with intravenous contrast. CTDI is 54.8 mGy and DLP is 944.2 mGy-cm. This CT exam was performed using one or more of the following dose reduction techniques: automated exposure control, adjustment of the mA and/or kV according to patient size, and/or use of iterative reconstruction technique. MIP reconstructed images were created and reviewed. COMPARISON: CTA chest 04/05/2019 FINDINGS: Artifacts: Scatter artifact likely related to patient's body habitus. Pulmonary arteries: The examination is near nondiagnostic for evaluation of pulmonary embolism as there is only faint heterogeneous enhancement in the central/large pulmonary arteries. No obvious thrombus, however detail is limited. The segmental and subsegmental branches are of nondiagnostic quality. Aorta: The thoracic aorta is normal in caliber without dissection or aneurysm. Lungs: No definite focal airspace consolidation, accounting for respiratory artifact. Questionable interlobular septal thickening at the lung apices suggested. Pleural space: Unremarkable. No significant effusion. No pneumothorax. Heart: Similar mild cardiomegaly with extensive coronary artery calcification and probable mid LAD stent. Bones/joints: No acute fracture. No dislocation. Soft tissues: Unremarkable. Lymph nodes: Unremarkable. No enlarged lymph nodes. Tubes, lines and devices: Left subclavian approach single lead defibrillator pacer. IMPRESSION: 1. The examination is near nondiagnostic for evaluation of pulmonary embolism as there is only faint heterogeneous enhancement in the central/large pulmonary arteries. No obvious thrombus, however detail is limited. The segmental and subsegmental branches are of nondiagnostic quality. If there is high clinical index of suspicion for pulmonary embolism, recommend repeat imaging in an earlier phase, and ideally with full expiration, to minimize inflow from the IVC. 2. No definite focal airspace consolidation, accounting for respiratory artifact. Questionable interlobular septal thickening at the lung apices suggested. Mild vascular congestion may be present. No pleural effusion or pneumothorax.
[2024-01-25] MEDS ORDERED: NALOXONE 0.4 MG/ML 1 ML VIAL IV PRN (03:50)
[2024-01-25] MEDS ORDERED: ONDANSETRON 4 MG/2 ML VIAL IVP PRN (03:50)
[2024-01-25] MEDS: IPRATROPIUM-ALBUTEROL 3 ML NEB INHALATION SCH (03:50)
[2024-01-25] MEDS: ALBUTEROL NEB (CONC) 2.5 MG/0.5 ML INHALATION ONE (03:50)
[2024-01-25] MEDS: INSULIN REGULAR 100 UNIT/ML VIAL (IV) IV ONE (03:56)
[2024-01-25] MEDS: DEXTROSE 50% SYRINGE 50 ML IVP ONE (03:58)
--- NOTE | 2024-01-25 03:59 | ED ---
General Adult HPI - General Chief complaint: Shortness of Breath Stated complaint: MARIA D NV Time Seen by Provider: 01/25/24 00:25 Source: patient, RN notes reviewed, old records reviewed Mode of arrival: wheelchair Limitations: no limitations - History of Present Illness Initial comments: Patient is a 48-year-old female who presents emergency department with multiple complaints. Primary complaints are shortness of breath as well as hypotension. Has a history remarkable for COPD on 2 L nasal cannula at home, heart failure, CAD with AICD in place, hyperlipidemia, prior cardiac stents. Also has a pain pump. Presents complaining of lower extremity edema, as well as worsening shortness of breath and hypotension. All worse over the last week. Has been checking blood pressures at home with systolic blood pressures in the 80s or 90s over this period of time as well as increased shortness of breath over this time as well. He is not on blood thinners. Recently traveled back from [place]. States that has been adjusting her medications specifically her diuretics as frequently lately. Presents for further evaluation at this time. Denies any cough. Denies any significant orthopnea. Presents for further evaluation. - Related Data Home Medications Medication Instructions Recorded Confirmed Omeprazole [PriLOSEC] 40 mg PO DAILY@0700 11/29/16 04/23/23 Atorvastatin [Lipitor] 80 mg PO DAILY@1900 11/30/16 04/23/23 Divalproex ER [Depakote ER] 1,000 mg PO DAILY@1200 02/06/17 04/23/23 Alendronate Sodium 70 mg PO COHEN@0700 06/29/17 04/23/23 HYDROcodone/APAP 7.5-325MG [[employer] Mdl 1 tab PO TID PRN 09/25/19 04/23/23 7.5-325] Metoprolol Tartrate [Lopressor] 25 mg PO BID@1200,1900 09/25/19 04/23/23 Isosorbide Mononitrate [Isosorbide 30 mg PO DAILY@1000 11/19/19 04/23/23 Mononitrate ER] Spironolactone [Aldactone] 25 mg PO DAILY@1000 11/19/19 04/23/23 Furosemide [Lasix] 60 mg PO BID@0700,1200 01/19/20 04/23/23 Escitalopram [Lexapro] 20 mg PO DAILY@1900 04/27/20 04/23/23 ALPRAZolam [Xanax] 0.25 mg PO BID PRN 02/12/23 04/23/23 Aspirin EC [Ecotrin Low Dose] 81 mg PO DAILY@1600 02/12/23 04/23/23 Dilaudid Pain Pump 1 dose INTRATHECA CONTINUOUS 02/12/23 04/23/23 Gabapentin [Neurontin] 900 mg PO TID@1000,1600,2200 02/12/23 04/23/23 Sacubitril/Valsartan [Entresto 24 1 tab PO BID@1000,1600 02/12/23 04/23/23 mg-26 mg Tablet] traZODone HCL [Desyrel] 25 mg PO HS@2200 02/12/23 04/23/23 Ezetimibe [Zetia] 10 mg PO DAILY@1000 04/23/23 04/23/23 Allergies Allergy/AdvReac Type Severity Reaction Status Date / Time moxifloxacin HCl Allergy Rash/Hives Verified 01/25/24 00:11 [From Avelox] Review of Systems ROS Statement: Those systems with pertinent positive or pertinent negative responses have been documented in the HPI. Review of Systems: CONST: Denies fever EYES: Denies blurry vision ENT: Denies nasal congestion C/V: Denies Chest pain RESP: Endorses shortness of breath GI: Denies abdominal pain : Denies dysuria SKIN: Denies rash. MSK: Denies joint pain. NEURO: Denies headache ROS Other: All systems not noted in ROS Statement are negative. Past Medical History Past Medical History: Asthma, Coronary Artery Disease (CAD), Chest Pain / Angina, Heart Failure, COPD, Fibromyalgia, GERD/Reflux, Hyperlipidemia, Myocardial Infarction (VT), Musculoskeletal Disorder, Osteoarthritis (OA), Pneumonia Additional Past Medical History / Comment(s): Has Pain Pump and AICD. Ishemic Cardiomyopathy. Hx VT X3 - 2004, 2012, 2017. Hx bronchitis. Chronic back pain, lumbar Degenerative Disc Disease, occasional neck pain, osteoporosis, migraines. Hx UTIs, kidney stones. Vertigo. Last Myocardial Infarction Date:: 2017 History of Any Multi-Drug Resistant Organisms: None Reported Past Surgical History: AICD, Heart Catheterization, Heart Catheterization With Stent, Orthopedic Surgery, Tubal Ligation Additional Past Surgical History / Comment(s): Multiple stents, left hand surgery, pain clinic procedures, Med[employer] Pain Pump surgically implanted. Past Anesthesia/Blood Transfusion Reactions: No Reported Reaction, Motion Sickness Date of Last Stent Placement:: 08-13-16 Type of Cardiac Device: AICD Device Placement Date:: 2016 [employer]. Past Psychological History: Anxiety, Bipolar, Depression Smoking Status: Current every day smoker Past Alcohol Use History: Occasional Past Drug Use History: Marijuana - Past Family History Mother Family Medical History: Coronary Artery Disease (CAD), Fibromyalgia, Hyperlipidemia Additional Family Medical History / Comment(s): Emotional problems, bipolar. Father Family Medical History: CVA/TIA, Fibromyalgia, Hyperlipidemia, Hypertension, Musculoskeletal Disorder Additional Family Medical History / Comment(s): MS. Sister(s) History Unknown: Yes Family Medical History: Hyperlipidemia General Exam - General Exam Comments Initial Comments: General: Appears in no acute distress. HEAD: Normal with no signs of head trauma. EYES: PERRLA, EOMI, conjunctiva normal, no discharge. ENT: Hearing grossly intact, normal oropharynx. RESPIRATORY: Bilateral end expiratory wheezing. Normoxic on baseline 2 L nasal cannula. C/V: Regular rate and rhythm. S1 and S2 auscultated, lower extremity edema with some pitting, peripheral pulses 2+ and intact throughout. Hypotensive with systolics in the low 80s. ABD: Abd is soft, nontender, nondistended EXT: Normal range of motion, no obvious deformity SKIN: No rashes or lesions observed on exposed skin. NEURO: Alert and oriented x 4. Limitations: no limitations Course Vital Signs 01/25/24 01/25/24 01/25/24 00:08 01:11 02:12 Temperature 97.7 F Pulse Rate 74 65 68 Respiratory 20 14 Rate Blood Pressure 83/54 89/62 O2 Sat by Pulse 98 93 L Oximetry 01/25/24 01/25/24 01/25/24 02:17 02:56 03:51 Temperature Pulse Rate 70 68 64 Respiratory 14 Rate Blood Pressure 94/61 O2 Sat by Pulse 94 L Oximetry 01/25/24 04:01 Temperature Pulse Rate 68 Respiratory Rate Blood Pressure O2 Sat by Pulse Oximetry Medical Decision Making - Medical Decision Making Was pt. sent in by a medical professional or institution (, PA, WIRE DRAWING MACHINE OPERATOR, urgent care, hospital, or fdc...) When possible be specific @ -No Did you speak to anyone other than the patient for history (EMS, parent, family, police, friend...)? What history was obtained from this source @ -No Did you review nursing and triage notes (agree or disagree)? Why? @ -I reviewed and agree with nursing and triage notes Were old charts reviewed (outside hosp., previous admission, EMS record, old EKG, old radiological studies, urgent care reports/EKG's, fdc records)? Report findings @ -Old charts reviewed from April 2023 including EKG which shows no obvious acute changes when compared with today's. Differential Diagnosis (chest pain, altered mental status, abdominal pain women, abdominal pain men, vaginal bleeding, weakness, fever, dyspnea, syncope, headache, dizziness, GI bleed, back pain, seizure, CVA, palpatations, mental health, musculoskeletal)? @ -Differential Dyspnea: Coronary syndrome, arrhythmia, tamponade, asthma, COPD, pulmonary embolism, pneumonia, pneumothorax, pulmonary effusion, anaphylaxis, diabetic ketoacidosis, flailed chest, pulmonary contusion, diaphragmatic rupture, anemia, neuromuscular, this is not meant to be an all-inclusive list. EKG interpreted by me (3pts min.). @ -As above X-rays interpreted by me (1pt min.). @ -Chest x-ray shows no significant pulmonary vascular congestion. CT interpreted by me (1pt min.). @ -CTA PE negative for pulmonary embolism obvious or large. It is a poor study and overall nondiagnostic U/S interpreted by me (1pt. min.). @ -None done What testing was considered but not performed or refused? (CT, X-rays, U/S, labs)? Why? @ -None What meds were considered but not given or refused? Why? @ -None Did you discuss the management of the patient with other professionals (professionals i.e. , PA, WIRE DRAWING MACHINE OPERATOR, lab, RT, psych nurse, school social worker, piece work inspector, teacher, benefits officer, showcase maker)? Give summary @ -We did consider obtaining VQ scan but after discussion with Tanmay from pulmonology we will defer at this time. We will continue treatment for COPD. Discussed with the admitting physician, Dr. Noel who accepted the admission. Was smoking cessation discussed for >3mins.? @ -No Was critical care preformed (if so, how long)? @ -Yes, 41 minutes Were there social determinants of health that impacted care today? How? (Homelessness, low income, unemployed, alcoholism, drug addiction, transportation, low edu. Level, literacy, decrease access to med. care, [facility], rehab)? @ -No Was there de-escalation of care discussed even if they declined (Discuss DNR or withdrawal of care, Hospice)? DNR status @ -No What co-morbidities impacted this encounter? (DM, HTN, Smoking, COPD, CAD, Cancer, CVA, ARF, Chemo, Hep., AIDS, mental health diagnosis, sleep apnea, morbid obesity)? @ -CAD, CHF, COPD, chronic hypoxic respiratory failure Was patient admitted / discharged? Hospital course, mention meds given and route, prescriptions, significant lab abnormalities, going to OR and other pertinent info. @ -Based on patient's presentation and physical exam, I am concerned for possible cardiopulmonary etiology for current symptoms. We will obtain a cardiopulmonary workup. Due to the patient's low blood pressure that has been like this for at least a week, with recent diuretic medication changes, I did perform a bedside ultrasound which showed her IVC relatively flattened. I am concerned for possible dehydration for the patient. She will be given a small fluid bolus in small increments to see if this improves her symptoms. She was in agreement this plan. Vital signs remarkable for mild hypotension with systolics in the low 80s. Patient treated for COPD with IV steroids and breathing treatments. Chest x-ray shows no obvious pulmonary vascular congestion. Labs remarkable for elevated D-dimer 0.61. CT PE done due to this and did not reveal any evidence of obvious PE however it is relatively nondiagnostic. Patient is hyponatremic at 126 and hypochloremic at 98 with hyperkalemia at 5.9. Patient given hyperkalemia cocktail and nephrology consulted. Patient has an HERLINDA as well. Troponin is undetectable. BNP is good for the patient at 499. I updated the patient. Blood pressures are improved following fluid boluses in small increments. Wheezing is improved. Patient not requiring more oxygen than baseline despite the fluid administration. We will continue to monitor fluid status but we will hold additional fluids at this time. Cardiology will be consulted. I updated the patient and she will be admitted. We did consider obtaining VQ scan but after discussion with Tanmay from pulmonology we will defer at this time. We will continue treatment for COPD. Patient treated for her hyperkalemia and nephrology consulted. Cardiology consulted. I will hold her diuretics at this time. Discussed with the admitting physician, Dr. Noel who accepted the admission. Undiagnosed new problem with uncertain prognosis? @ -No Drug Therapy requiring intensive monitoring for toxicity (Heparin, Nitro, Insulin, Cardizem)? @ -No Were any procedures done? @ -No Diagnosis/symptom? @ -Hyperkalemia, dehydration, hyponatremia, COPD, HERLINDA, CHF, hypertension Acute, or Chronic, or Acute on Chronic? @ -Acute Uncomplicated (without systemic symptoms) or Complicated (systemic symptoms)? @ -Complicated Side effects of treatment? @ -No Exacerbation, Progression, or Severe Exacerbation? @ -No Poses a threat to life or bodily function? How? (Chest pain, USA, VT, pneumonia, PE, COPD, DKA, ARF, appy, cholecystitis, CVA, Diverticulitis, Homicidal, Suicidal, threat to staff... and all critical care pts) @ -Yes - Lab Data Result diagrams: 01/25/24 00:53 01/25/24 02:30 Lab Results 01/25/24 01/25/24 01/25/24 Range/Units 00:51 00:53 00:53 WBC 6.4 (3.8-10.6) k/uL RBC 3.63 L (3.80-5.40) m/uL Hgb 11.4 (11.4-16.0) gm/dL Hct 34.2 (34.0-46.0) % MCV 94.1 (80.0-100.0) fL MCH 31.3 (25.0-35.0) pg MCHC 33.2 (31.0-37.0) g/dL RDW 14.4 (11.5-15.5) % Plt Count 232 (150-450) k/uL MPV 7.9 Neutrophils % 46 % Lymphocytes % 30 % Monocytes % 13 % Eosinophils % 6 % Basophils % 1 % Neutrophils # 3.0 (1.3-7.7) k/uL Lymphocytes # 1.9 (1.0-4.8) k/uL Monocytes # 0.8 (0-1.0) k/uL Eosinophils # 0.4 (0-0.7) k/uL Basophils # 0.0 (0-0.2) k/uL PT 9.8 L (10.0-12.5) sec INR 0.9 (<1.2) APTT 25.4 (22.0-30.0) sec D-Dimer 0.61 H (<0.60) mg/L FEU Sodium (137-145) mmol/L Potassium (3.5-5.1) mmol/L Chloride (98-107) mmol/L Carbon Dioxide (22-30) mmol/L Anion Gap mmol/L BUN (7-17) mg/dL Creatinine (0.52-1.04) mg/dL Est GFR (CKD-EPI)AfAm (>60 ml/min/1.73 sqM) Est GFR (CKD-EPI)NonAf (>60 ml/min/1.73 sqM) Glucose (74-99) mg/dL Calcium (8.4-10.2) mg/dL Magnesium (1.6-2.3) mg/dL Total Bilirubin (0.2-1.3) mg/dL AST (14-36) U/L ALT (4-34) U/L Alkaline Phosphatase (38-126) U/L Troponin I (0.000-0.034) ng/mL NT-Pro-B Natriuret Pep pg/mL Total Protein (6.3-8.2) g/dL Albumin (3.5-5.0) g/dL Influenza Type A (PCR) Not Detected (Not Detectd) Influenza Type B (PCR) Not Detected (Not Detectd) RSV (PCR) Not Detected (Not Detectd) SARS-CoV-2 (PCR) Not Detected (Not Detectd) 01/25/24 01/25/24 01/25/24 Range/Units 00:53 00:53 02:30 WBC (3.8-10.6) k/uL RBC (3.80-5.40) m/uL Hgb (11.4-16.0) gm/dL Hct (34.0-46.0) % MCV (80.0-100.0) fL MCH (25.0-35.0) pg MCHC (31.0-37.0) g/dL RDW (11.5-15.5) % Plt Count (150-450) k/uL MPV Neutrophils % % Lymphocytes % % Monocytes % % Eosinophils % % Basophils % % Neutrophils # (1.3-7.7) k/uL Lymphocytes # (1.0-4.8) k/uL Monocytes # (0-1.0) k/uL Eosinophils # (0-0.7) k/uL Basophils # (0-0.2) k/uL PT (10.0-12.5) sec INR (<1.2) APTT (22.0-30.0) sec D-Dimer (<0.60) mg/L FEU Sodium 126 L (137-145) mmol/L Potassium 6.2 H* 5.9 H (3.5-5.1) mmol/L Chloride 90 L (98-107) mmol/L Carbon Dioxide 31 H (22-30) mmol/L Anion Gap 5 mmol/L BUN 56 H (7-17) mg/dL Creatinine 1.34 H (0.52-1.04) mg/dL Est GFR (CKD-EPI)AfAm 54 (>60 ml/min/1.73 sqM) Est GFR (CKD-EPI)NonAf 47 (>60 ml/min/1.73 sqM) Glucose 90 (74-99) mg/dL Calcium 9.5 (8.4-10.2) mg/dL Magnesium 2.4 H (1.6-2.3) mg/dL Total Bilirubin 0.6 (0.2-1.3) mg/dL AST 28 (14-36) U/L ALT 34 (4-34) U/L Alkaline Phosphatase 95 (38-126) U/L Troponin I <0.012 (0.000-0.034) ng/mL NT-Pro-B Natriuret Pep 499 pg/mL Total Protein 6.1 L (6.3-8.2) g/dL Albumin 3.6 (3.5-5.0) g/dL Influenza Type A (PCR) (Not Detectd) Influenza Type B (PCR) (Not Detectd) RSV (PCR) (Not Detectd) SARS-CoV-2 (PCR) (Not Detectd) - EKG Data -: EKG Interpreted by Me EKG Comments: 12-lead Electrocardiogram Interpretation Note EKG was reviewed and interpreted by myself. 12-lead ECG performed at 0041 is interpreted by me as revealing normal sinus rhythm at a rate of 67 beats per minute. Haddock is normal. RI interval is 174 ms, QRS durations 117 ms, QTc is 424 ms. T wave inversion seen which is somewhat chronic for the patient as it is seen on prior EKGs from April 2023. There were no ST or T wave abnormalities to suggest myocardial ischemia or injury. R wave progression across the precordium was satisfactory. By my interpretation this EKG is non- diagnostic for acute ischemia. Critical Care Time Critical Care Time: Yes Total Critical Care Time: 41 Disposition Clinical Impression: Hypotension, Hyperkalemia, Hyponatremia, Dehydration, HERLINDA (acute kidney injury), CHF (congestive heart failure), COPD (chronic obstructive pulmonary disease) Disposition: ADMITTED IP TO THIS HOSP Condition: Serious Referrals: Brenden Rodriguez MD [Primary Care Provider] - 1-2 days Time of Disposition: 03:55
[2024-01-25] MEDS: SODIUM ZIRCONIUM CYCLOSILICATE 10 GM PACKET PO ONE (04:03)
[2024-01-25] MEDS: SODIUM BICARB 8.4% 50 ML SYR (1 MEQ/ML) IV STA (04:04)
[2024-01-25] MEDS: SODIUM CHLORIDE 0.9% 500 ML 500 ML IV ONE (04:04)
[2024-01-25] MEDS: CALCIUM GLUCONATE IN NACL 1 GM in SALINE 1 100ML.BAG IVPB ONE (04:06)
--- NOTE | 2024-01-25 04:45 | XR ---
EXAM: XR Chest, 2 Views CLINICAL HISTORY: ITS.REASON XR Reason: difficulty breathing TECHNIQUE: Frontal and lateral views of the chest. COMPARISON: Chest 2 views dated 04/23/2023 FINDINGS: Lungs: Slightly diminished lung volumes. No focal airspace consolidation. The pulmonary vasculature appears somewhat equalized centrally, stable from the prior examination. No radiographic evidence for florid CHF. Pleural space: Unremarkable. No pneumothorax. No large pleural effusion. Heart: Similar cardiomegaly. Coronary artery stent suggested. Mediastinum: The mediastinal contours are stable and unremarkable. The trachea is midline. Bones/joints: Unremarkable. No acute fracture. Tubes, lines and devices: Stable unipolar defibrillator pacer lead. IMPRESSION: Stable cardiomegaly. Slightly diminished lung volumes. No focal airspace consolidation. The pulmonary vasculature appears somewhat equalized centrally, stable from the prior examination. No radiographic evidence for florid CHF. No pleural effusion or pneumothorax.
[2024-01-25 05:53] LABS: Glucose,Whole Blood 138 mg/dL (70-110)
[2024-01-25 06:17] LABS: ABG HCO3 34 mmol/L (21-25); ABG PCO2 56 mmHg (35-45); ABG PH 7.39 (7.35-7.45); ABG PO2 73 mmHg (83-108); ABG TCO2 36 mmol/L (19-24); Allen Test Performed? Yes
[2024-01-25 06:19] LABS: ABG Oxygen Saturation 95.5 % (94-97)
[2024-01-25] MEDS: ASPIRIN 81 MG PO SCH (08:02)
[2024-01-25] MEDS: methylPREDNISolone SOD SUCCI 40 MG/ML 1 ML VIAL IV SCH ×2 (08:02→08:41)
[2024-01-25] MEDS: ATORVASTATIN 80 MG TAB PO SCH (08:02)
--- NOTE | 2024-01-25 08:58 | P.CNPUL ---
History of Present Illness Consult date: 01/25/24 Requesting physician: Fareed Peraza Reason for consult: COPD Chief complaint: Lethargy, confusion, low blood pressures History of present illness: Patient is a 48-year-old white female with multiple medical comorbidities including COPD, ischemic cardiomyopathy with known ejection fraction of 25%, AICD, coronary artery disease with multiple previous PCI/stenting, hyperlipidemia, chronic pain with pain pump, among other things. Her primary care provider is Dr. Hooper. Of note, patient was just recently hospitalized in [place] while visiting her mother. Apparently her mother was in the hospital. While down visiting, she was reportedly hospitalized for pneumonia. Discharged with home oxygen, and placed on 2 L/min nasal cannula. She does have history of COPD. She just recently quit smoking 2 weeks ago, prior to this a very heavy smoker according to patient's daughter who is at bedside. Over 3-4 ppd. Patient is currently lethargic and not a very good historian. She has been prog ressively more weak over the last 7 days. Her daughter is at bedside who provides much of the information for HPI. Over the last week, the patient has been reportedly more short of breath while at home. She has had increased swelling in her legs. Reportedly, her Lasix dose was just recently increased. She has been short of breath requiring increased oxygen demands. No significant coughing, sputum production, hemoptysis, chest pain. No fevers reported. She was negative for influenza, RSV, COVID on arrival. Chest x-ray shows stable cardiomegaly, with low lung volumes. No focal airspace consolidation noted. No pleural effusions or pneumothoraces. Due to patient's recent prolonged travels, a D-dimer was ordered which was slightly elevated at 0.61. Chest CTA was essentially nondiagnostic due to poor contrast timing. No obvious central pulmonary embolism. CBC unremarkable, without any leukocytosis. BMP: Sodium 126, potassium 6.2, chloride 90, serum bicarb 31, BUN 56, creatinine 1.34, glucose 90. Hyperkalemia was addressed with 10 units of regular insulin, 1 amp D50 W, 1 amp sodium bicarbonate 1 g calcium gluconate and 10 g of Lokelma. Repeat potassium level is pending. Troponins less than 0.012. NT proBNP 499. EKG shows normal sinus rhythm with diffuse ST/T wave abnormalities. Particularly T wave inversion in leads I aVL, V5, V6. Also, T wave inversion in leads II and aVF. She does have significant history for coronary artery disease and has had multiple PCI/stenting including 2 stents to the RCA and a stent to the left circumflex arteries. She is also known to have severe ischemic cardiomyopathy with an ejection fraction of 25%. There is also mild to moderate aortic regurgitation. She has had an AICD implanted. Patient is currently resting in bed, in a Semi-Barriga's position. She is lethargic, but will wake up to questioning. Oriented to self and place. She is on 2 L/min nasal cannula. SpO2 is 94%. Due to patient's lethargy and history of COPD, I did order an ABG which shows a PaO2 of 73, pCO2 of 56, pH of 7.39. Likely component of chronic hypercapnic respiratory failure. Earlier, blood pressure was noted to be hypotensive. Patient was fluid resuscitated with a total of 1.5 L normal saline bolus while in the ED. Current blood pressure reading 111/57 mmhg, heart rate 74. Overall hemodynamics are stable. Review of Systems REVIEW OF SYSTEMS: CONSTITUTIONAL: Denies any recent significant weight loss or weight gain. Reports increased weight gain, unable to quantify EYES: Denies change in vision. EARS, NOSE, MOUTH, THROAT: Denies headaches, denies sore throat. CARDIOVASCULAR: Denies chest pain, palpitations or syncopal episodes. Admits increased lower extremity swelling RESPIRATORY: See HPI GASTROINTESTINAL: Denies change in appetite, abdominal pain, nausea and vomiting, or diarrhea GENITOURINARY: Denies hematuria, denies infections. MUSKULOSKELETAL: Denies pain, denies swelling. INTEGUMENTARY: Denies rash, denies eczema. NEUROLOGICAL: Denies recent memory loss, no recent seizure activity. PSYCHIATRIC: Denies anxiety, denies depression. HEMATOLOGIC/LYMPHATIC: Denies anemia, denies enlarged lymph node Past Medical History Past Medical History: Asthma, Coronary Artery Disease (CAD), Chest Pain / Angina, Heart Failure, COPD, Fibromyalgia, GERD/Reflux, Hyperlipidemia, Myocardial Infarction (VT), Musculoskeletal Disorder, Osteoarthritis (OA), Pne umonia Additional Past Medical History / Comment(s): Has Pain Pump and AICD. Ishemic Cardiomyopathy. Hx VT X3 - 2004, 2011, 2017. Hx bronchitis. Chronic back pain, lumbar Degenerative Disc Disease, occasional neck pain, osteoporosis, migraines. Hx UTIs, kidney stones. Vertigo. Last Myocardial Infarction Date:: 2016 History of Any Multi-Drug Resistant Organisms: None Reported Past Surgical History: AICD, Heart Catheterization, Heart Catheterization With Stent, Orthopedic Surgery, Tubal Ligation Additional Past Surgical History / Comment(s): Multiple stents, left hand cohen rgery, pain clinic procedures, [employer] Pain Pump surgically implanted. Past Anesthesia/Blood Transfusion Reactions: No Reported Reaction, Motion Sickness Date of Last Stent Placement:: 08-13-16 Type of Cardiac Device: AICD Device Placement Date:: 2016 [employer]. Past Psychological History: Anxiety, Bipolar, Depression Smoking Status: Current every day smoker Past Alcohol Use History: Occasional Past Drug Use History: Marijuana - Past Family History Mother Family Medical History: Coronary Artery Disease (CAD), Fibromyalgia, Hyperl ipidemia Additional Family Medical History / Comment(s): Emotional problems, bipolar. Father Family Medical History: CVA/TIA, Fibromyalgia, Hyperlipidemia, Hypertension, Musculoskeletal Disorder Additional Family Medical History / Comment(s): MS. Sister(s) History Unknown: Yes Family Medical History: Hyperlipidemia Medications and Allergies Home Medications Medication Instructions Recorded Confirmed Type Omeprazole [PriLOSEC] 40 mg PO DAILY@0700 11/29/16 01/25/24 History Atorvastatin [Lipitor] 80 mg PO DAILY@1900 11/30/16 01/25/24 History Divalproex ER [Depakote ER] 1,000 mg PO DAILY@1200 02/06/17 01/25/24 History Alendronate Sodium 70 mg PO COHEN@0700 06/29/17 01/25/24 History Metoprolol Tartrate [Lopressor] 12.5 mg PO BID@1200,1900 09/25/19 01/25/24 History Isosorbide Mononitrate [Isosorbide 30 mg PO DAILY@1000 11/19/19 01/25/24 History Mononitrate ER] Spironolactone [Aldactone] 25 mg PO BID@1000,1600 11/19/19 01/25/24 History Furosemide [Lasix] 80 mg PO BID@0700,1200 01/19/20 01/25/24 History Escitalopram [Lexapro] 20 mg PO DAILY@1900 04/27/20 01/25/24 History ALPRAZolam [Xanax] 0.25 mg PO BID PRN 02/12/23 01/25/24 History Aspirin EC [Ecotrin Low Dose] 81 mg PO DAILY@1600 02/12/23 01/25/24 History Gabapentin [Neurontin] 900 mg PO TID@1000,1600,2200 02/12/23 01/25/24 History Sacubitril/Valsartan [Entresto 24 1 tab PO BID@1000,1600 02/12/23 01/25/24 History mg-26 mg Tablet] traZODone HCL [Desyrel] 25 mg PO HS@2200 02/12/23 01/25/24 History Ezetimibe [Zetia] 10 mg PO DAILY@1000 04/23/23 01/25/24 History Albuterol Sulfate [Ventolin HFA] 2 puff INHALATION RT-Q6H PRN 01/25/24 01/25/24 History Fluticasone/Umeclidin/Vilanter 1 puff INHALATION RT-DAILY 01/25/24 01/25/24 History [Trelegy Ellipta 200-62.5-25] Patient Own Pump 0 bag 01/25/24 History oxyCODONE-APAP 5-325MG [Percocet 1 tab PO BID PRN 01/25/24 01/25/24 History 5-325 mg] Allergies Allergy/AdvReac Type Severity Reaction Status Date / Time moxifloxacin HCl Allergy Rash/Hives Verified 01/25/24 11:58 [From Avelox] Physical Exam Vitals: Vital Signs Temp Pulse Resp BP BP Pulse Ox 01/25/24 05:40 98.6 F 111/57 01/25/24 04:12 74 20 96/45 94 L 01/25/24 04:01 68 01/25/24 03:51 64 01/25/24 02:56 68 14 94/61 94 L 01/25/24 02:17 70 01/25/24 02:12 68 01/25/24 01:11 65 14 89/62 93 L 01/25/24 00:08 97.7 F 74 20 83/54 98 Intake and Output 01/24/24 01/25/24 01/25/24 22:59 06:59 14:59 Intake Total 0 Balance 0 Intake: Oral 0 Other: # Voids 0 # Bowel Movements 0 Weight 113.8 kg GENERAL EXAM: Lethargic, awakens and responds to verbal questioning but then quickly falls back to sleep when not stimulated, 48-year-old morbidly obese female, diaphoretic, fairly comfortable in no apparent distress. HEAD: Normocephalic and atraumatic EYES: Normal reaction of pupils, equal size. NOSE: Clear with pink turbinates. THROAT: No erythema or exudates. NECK: No masses, no JVD. CHEST: No chest wall deformity. LUNGS: Equal air entry with markedly diminished lung sounds bilaterally. No crackles, wheeze, rhonchi or dullness. On 2 L/min nasal cannula. No conversational dyspnea or accessory muscle use.. CVS: S1 and S2 normal with no audible murmur, regular rhythm. No extra heart sounds ABDOMEN: Obese abdomen, active bowel sounds, no appreciable masses or hepatosplenomegaly, no guarding or rigidity. SPINE: No scoliosis or deformity SKIN: No rashes CENTRAL NERVOUS SYSTEM: No focal deficits, tone is normal in all 4 extremities. EXTREMITIES: There bilateral lower extremity edema. Clubbing, or cyanosis. Peripheral pulses are intact. Results - Laboratory Findings CBC and BMP: 01/25/24 00:53 01/25/24 07:40 ABG ABG pH 7.39 (7.35-7.45) 01/25/24 06:11 ABG pCO2 56 mmHg (35-45) H 01/25/24 06:11 ABG pO2 73 mmHg (83-108) L 01/25/24 06:11 ABG O2 Saturation 95.5 % (94-97) 01/25/24 06:11 PT/INR, D-dimer PT 9.8 sec (10.0-12.5) L 01/25/24 00:53 INR 0.9 (<1.2) 01/25/24 00:53 D-Dimer 0.61 mg/L FEU (<0.60) H 01/25/24 00:53 Abnormal lab findings: Abnormal Labs 01/25/24 01/25/24 01/25/24 00:53 00:53 00:53 RBC 3.63 L PT 9.8 L D-Dimer 0.61 H ABG pCO2 ABG pO2 ABG HCO3 ABG Total CO2 Sodium 126 L Potassium 6.2 H* Chloride 90 L Carbon Dioxide 31 H BUN 56 H Creatinine 1.34 H POC Glucose (mg/dL) Magnesium 2.4 H Total Protein 6.1 L 01/25/24 01/25/24 01/25/24 02:30 05:52 06:11 RBC PT D-Dimer ABG pCO2 56 H ABG pO2 73 L ABG HCO3 34 H ABG Total CO2 36 H Sodium Potassium 5.9 H Chloride Carbon Dioxide BUN Creatinine POC Glucose (mg/dL) 138 H Magnesium Total Protein - Diagnostic Findings Chest x-ray: image reviewed Assessment and Plan Assessment: Acute hypoxemic respiratory failure, currently on 2 L/min nasal cannula, possibly secondary to acute COPD exacerbation, chest x-ray demonstrates stable cardiomegaly, diminished lung volumes, no focal airspace consolidation. No pleural effusions or pneumothoraces. NT proBNP only 499. Negative for influenza, RSV, COVID. . Chronic hypercapnic respiratory failure Chronic obstructive pulmonary disease Altered mental status, under investigation Hyponatremia Acute kidney injury, creatinine 1.34 Hyperkalemia, secondary to above, treated with K cocktail including 10 units regular insulin, 1 amp D50 W, 1 amp sodium bicarbonate, 1 g calcium gluconate, 10 g of Lokelma Hypotension, improved after fluid resuscitation History of ischemic cardiomyopathy, with ejection fraction of 25%, status post AICD implantation Coronary artery disease, with history of previous multiple PCI/stenting History of hyperlipidemia Chronic pain, with implanted pain pump Recent former tobacco smoker, reportedly quit 2 weeks ago, prior to this was a very heavy tobacco smoker, smoking over 3 to 4 packs/day Morbid obesity, with a BMI of 45.9 kg/m Plan: Patient's medications, labs, chest x-ray reviewed On my evaluation, patient COPD appears relatively stable; however, was reportedly in respiratory distress and audibly wheezing in the emergency department. Has since been placed on IV steroids and bronchodilators. Continue supplemental oxygen and wean FiO2 as tolerated ABG, is more consistent with a component of chronic hypercapnic respiratory failure. Chest x-ray does not show any focal infiltrates or evidence of pneumonia. Chest CTA was technically nondiagnostic study due to poor contrast timing. No obvious central/saddle thrombus Patient reportedly aggressively diuresed on outpatient basis, hypotension is improved with judicious fluid resuscitation Most recent available echocardiogram from April, demonstrates a severely reduced left ventricular ejection fraction of 25% along with mild to moderate aortic regurgitation. Cardiology was asked to evaluate this patient as well. Hyperkalemia was treated with combination of 10 units regular insulin, 1 amp D50 W, 1 amp sodium bicarbonate, 1 g of calcium gluconate, and was 10 g of Lokelma in the emergency department. No hyperacute T waves or QRS widening on EKG. Repeat potassium levels pending. Obtain urinalysis Obtain urine drug screen We will continue to follow I have personally seen and examined the patient, performed the documentation and the assessment and plan as written. Number of minutes spent on the visit:20 On today's evaluation of 01/25/2024, the patient is being seen in joint evaluation along with the nurse practitioner. In summary, the patient does not have coronary artery disease with previous coronary intervention and stenting and ischemic cardiomyopathy with impaired LV function and the patient has an ICD in place. She was in [place] where she was treated for pneumonia and she is coming in with worsening shortness of breath and increased lower extremity edema. Her current presentation is typical of CHF. Reviewed the CT of the chest and there is no evidence of any airspace disease or consolidation or pulmonary embolism. The patient has background COPD and mild pulm vascular congestion. The crea tinine is currently at 1.3. Patient initial potassium was at 6.2, treated and the subsequent potassium level is down to 5.5. The patient was taken off the Entresto and Aldactone for now. The patient is being diuresed with Lasix 40 mg IV every 12 hours. In regards to her COPD, the patient is maintained on Trelegy Ellipta on outpatient basis and albuterol rescue inhaler. She is currently placed on DuoNeb nebulized treatments [id number] and IV Solu-Medrol. The patient has no other new complaints otherwise for now. Oxygenation is stable. Cardiology on the case. Will continue to follow. Time with Patient: Greater than 30
[2024-01-25] MEDS: METOPROLOL TARTRATE 12.5 MG TAB PO SCH (11:36)
[2024-01-25] MEDS: ISOSORBIDE MONONITRATE ER 30 MG TAB.ER.24H PO SCH (11:36)
--- NOTE | 2024-01-25 12:21 | P.HPIM ---
History of Present Illness H&P Date: 01/25/24 Chief Complaint: COPD, hypotension Sahara is a 48-year-old female well-known to the practice with multiple medical comorbidities including COPD ischemic cardiomyopathy known ejection fraction of 25% coronary artery disease with multiple stenting episodes, hyperlipidemia chronic pain, with pain pump. Patient was recently hospitalized in [place] while visiting her mother apparently she was hospitalized for pneumonia while visiting her mother in [place] in the hospital patient was discharged with home oxygen placed on 2 L nasal cannula does have a history of COPD states she recently quit smoking, patient is been a heavy smoker 2-3 pack-a-day smoker for several years. Oxygen requirements have increased, patient has been significantly short of breath however no significant coughing no significant sputum production no hemoptysis Review of Systems Ears, nose, mouth and throat: Reports as per HPI Cardiovascular: Reports chest pain, Reports decreased exercise tolerance, Reports dyspnea on exertion, Reports high blood pressure Respiratory: Reports dyspnea, Reports home oxygen Gastrointestinal: Reports as per HPI Genitourinary: Reports as per HPI Menstruation: Reports as per HPI Integumentary: Reports as per HPI Neurological: Reports as per HPI Psychiatric: Reports anxiety, Reports depression, Reports difficulty concentr ating, Reports hopelessness, Reports mood swings Endocrine: Reports as per HPI Past Medical History Past Medical History: Asthma, Coronary Artery Disease (CAD), Chest Pain / Angina, Heart Failure, COPD, Fibromyalgia, GERD/Reflux, Hyperlipidemia, Myocardial Infarction (NV), Musculoskeletal Disorder, Osteoarthritis (OA), Pneumonia Additional Past Medical History / Comment(s): Has Pain Pump and AICD. Ishemic C ardiomyopathy. Hx NV X3 - 2004, 2012, 2017. Hx bronchitis. Chronic back pain, lumbar Degenerative Disc Disease, occasional neck pain, osteoporosis, migraines. Hx UTIs, kidney stones. Vertigo. Last Myocardial Infarction Date:: 2017 History of Any Multi-Drug Resistant Organisms: None Reported Past Surgical History: AICD, Heart Catheterization, Heart Catheterization With Stent, Orthopedic Surgery, Tubal Ligation Additional Past Surgical History / Comment(s): Multiple stents, left hand surgery, pain clinic procedures, Medtronic Pain Pump surgically implanted. Past Anesthesia/Blood Transfusion Reactions: No Reported Reaction, Motion Sickness Date of Last Stent Placement:: 08-13-16 Type of Cardiac Device: AICD Device Placement Date:: 2016 NovaSom. Past Psychological History: Anxiety, Bipolar, Depression Smoking Status: Current every day smoker Past Alcohol Use History: Occasional Past Drug Use History: Marijuana - Past Family History Mother Family Medical History: Coronary Artery Disease (CAD), Fibromyalgia, Hyperlipidemia Additional Family Medical History / Comment(s): Emotional problems, bipolar. Father Family Medical History: CVA/TIA, Fibromyalgia, Hyperlipidemia, Hypertension, Musculoskeletal Disorder Additional Family Medical History / Comment(s): MS. Sister(s) History Unknown: Yes Family Medical History: Hyperlipidemia Medications and Allergies Home Medications Medication Instructions Recorded Confirmed Type Omeprazole [PriLOSEC] 40 mg PO DAILY@0700 11/29/16 01/25/24 History Atorvastatin [Lipitor] 80 mg PO DAILY@1900 11/30/16 01/25/24 History Divalproex ER [Depakote ER] 1,000 mg PO DAILY@1200 02/06/17 01/25/24 History Alendronate Sodium 70 mg PO COHEN@0700 06/29/17 01/25/24 History Metoprolol Tartrate [Lopressor] 12.5 mg PO BID@1200,1900 09/25/19 01/25/24 History Isosorbide Mononitrate [Isosorbide 30 mg PO DAILY@1000 11/19/19 01/25/24 History Mononitrate ER] Spironolactone [Aldactone] 25 mg PO BID@1000,1600 11/19/19 01/25/24 History Furosemide [Lasix] 80 mg PO BID@0700,1200 01/19/20 01/25/24 History Escitalopram [Lexapro] 20 mg PO DAILY@1900 04/27/20 01/25/24 History ALPRAZolam [Xanax] 0.25 mg PO BID PRN 02/12/23 01/25/24 History Aspirin EC [Ecotrin Low Dose] 81 mg PO DAILY@1600 02/12/23 01/25/24 History Gabapentin [Neurontin] 900 mg PO TID@1000,1600,219902/12/23 01/25/24 History Sacubitril/Valsartan [Entresto 24 1 tab PO BID@1000,1600 02/12/23 01/25/24 History mg-26 mg Tablet] traZODone HCL [Desyrel] 25 mg PO HS@219902/12/23 01/25/24 History Ezetimibe [Zetia] 10 mg PO DAILY@1000 04/23/23 01/25/24 History Albuterol Sulfate [Ventolin HFA] 2 puff INHALATION RT-Q6H PRN 01/25/24 01/25/24 History Fluticasone/Umeclidin/Vilanter 1 puff INHALATION RT-DAILY 01/25/24 01/25/24 History [Trelegy Ellipta 200-62.5-25] Patient Own Pump 0 bag 01/25/24 History oxyCODONE-APAP 5-325MG [Percocet 1 tab PO BID PRN 01/25/24 01/25/24 History 5-325 mg] Allergies Allergy/AdvReac Type Severity Reaction Status Date / Time moxifloxacin HCl Allergy Rash/Hives Verified 01/25/24 11:58 [From Avelox] Physical Exam Osteopathic Statement: *. No significant issues noted on an osteopathic structural exam other than those noted in the History and Physical/Consult. Vitals: Vital Signs Temp Pulse Pulse Resp BP BP Pulse Ox 01/25/24 11:55 76 01/25/24 08:00 97.4 F L 74 20 101/62 93 L 01/25/24 07:23 882 H 01/25/24 05:40 98.6 F 111/57 01/25/24 04:12 74 20 96/45 94 L 01/25/24 04:01 68 01/25/24 03:51 64 01/25/24 02:56 68 14 94/61 94 L 01/25/24 02:17 70 01/25/24 02:12 68 01/25/24 01:11 65 14 89/62 93 L 01/25/24 00:08 97.7 F 74 20 83/54 98 Intake and Output 01/24/24 01/25/24 01/25/24 22:59 06:59 14:59 Intake Total 0 118 Balance 0 118 Intake: Oral 0 118 Other: Voiding Method Diaper Incontinent External Catheter # Voids 0 # Bowel Movements 0 Weight 113.8 kg General: [Patient awake, alert and oriented times 3. Patient in no acute distress. morbidly obese HEENT: [PERRL. EOMI. No pharyngeal erythema or exudate.] Neck: [No adenopathy.] Cardiac: [Heart regular in rate and rhythm. No S3. No S4. No clicks, rubs. No murmur.] Lungs: [Clear to auscultation bilaterally.] Abdomen: [No mass. No organomegaly. Bowel sounds presnt and normoactive in all 4 quadrants.] Extremes: [No edema no cyanosis no claudication normal pulses] : normal female genitalia Musculoskeletal: [No joint erythema, edema or tenderness.] Skin: [No rash.] Neurologic: [No lateralizing deficits. CN II - XII grossly intact.] Lymphatic: [No adenopathy.] Results CBC & Chem 7: 01/25/24 00:53 01/25/24 07:40 Labs: Abnormal Lab Results - Last 24 Hours (Table) 01/25/24 01/25/24 01/25/24 Range/Units 00:53 00:53 00:53 RBC 3.63 L (3.80-5.40) m/uL PT 9.8 L (10.0-12.5) sec D-Dimer 0.61 H (<0.60) mg/L FEU ABG pCO2 (35-45) mmHg ABG pO2 (83-108) mmHg ABG HCO3 (21-25) mmol/L ABG Total CO2 (19-24) mmol/L Sodium 126 L (137-145) mmol/L Potassium 6.2 H* (3.5-5.1) mmol/L Chloride 90 L (98-107) mmol/L Carbon Dioxide 31 H (22-30) mmol/L BUN 56 H (7-17) mg/dL Creatinine 1.34 H (0.52-1.04) mg/dL POC Glucose (mg/dL) (70-110) mg/dL Magnesium 2.4 H (1.6-2.3) mg/dL Total Protein 6.1 L (6.3-8.2) g/dL 01/25/24 01/25/24 01/25/24 Range/Units 02:30 05:52 06:11 RBC (3.80-5.40) m/uL PT (10.0-12.5) sec D-Dimer (<0.60) mg/L FEU ABG pCO2 56 H (35-45) mmHg ABG pO2 73 L (83-108) mmHg ABG HCO3 34 H (21-25) mmol/L ABG Total CO2 36 H (19-24) mmol/L Sodium (137-145) mmol/L Potassium 5.9 H (3.5-5.1) mmol/L Chloride (98-107) mmol/L Carbon Dioxide (22-30) mmol/L BUN (7-17) mg/dL Creatinine (0.52-1.04) mg/dL POC Glucose (mg/dL) 138 H (70-110) mg/dL Magnesium (1.6-2.3) mg/dL Total Protein (6.3-8.2) g/dL 01/25/24 Range/Units 07:40 RBC (3.80-5.40) m/uL PT (10.0-12.5) sec D-Dimer (<0.60) mg/L FEU ABG pCO2 (35-45) mmHg ABG pO2 (83-108) mmHg ABG HCO3 (21-25) mmol/L ABG Total CO2 (19-24) mmol/L Sodium (137-145) mmol/L Potassium 5.5 H (3.5-5.1) mmol/L Chloride (98-107) mmol/L Carbon Dioxide (22-30) mmol/L BUN (7-17) mg/dL Creatinine (0.52-1.04) mg/dL POC Glucose (mg/dL) (70-110) mg/dL Magnesium (1.6-2.3) mg/dL Total Protein (6.3-8.2) g/dL Thrombosis Risk Factor Assmnt - Choose All That Apply Any of the Below Risk Factors Present?: Yes Each Factor Represents 1 point: Abnormal pulmonary function (COPD), Age 41-60 years, Obesity (BMI >25), Serious lung disease incl. pneumonia (< 1month), Swollen legs (current) Other Risk Factors: Yes Other congenital or acquired thrombophilia - If yes, enter type in comment: No Thrombosis Risk Factor Assessment Total Risk Factor Score: 5 Thrombosis Risk Factor Assessment Level: High Risk Assessment and Plan (1) HERLINDA (acute kidney injury) Current Visit: Yes Status: Acute Code(s): N17.9 - ACUTE KIDNEY FAILURE, UNSPECIFIED SNOMED Code(s): 99944767 (2) CHF (congestive heart failure) Current Visit: Yes Status: Acute Code(s): I50.9 - HEART FAILURE, UNSPECIFIED SNOMED Code(s): 05869678 (3) COPD (chronic obstructive pulmonary disease) Current Visit: Yes Status: Acute Code(s): J44.9 - CHRONIC OBSTRUCTIVE P ULMONARY DISEASE, UNSPECIFIED SNOMED Code(s): 06141576 (4) Dehydration Current Visit: Yes Status: Acute Code(s): E86.0 - DEHYDRATION SNOMED Code(s): 69334512 (5) Hyperkalemia Current Visit: Yes Status: Acute Code(s): E87.5 - HYPERKALEMIA SNOMED Code(s): 95541163 (6) Hyponatremia Current Visit: Yes Status: Acute Code(s): E87.1 - HYPO-OSMOLALITY AND HYPONATREMIA SNOMED Code(s): 58147027 (7) Hypotension Current Visit: Yes Status: Acute Code(s): I95.9 - HYPOTENSION, UNSPECIFIED SNOMED Code(s): 47066701 (8) Acute on chronic systolic (congestive) heart failure Current Visit: No Status: Acute Code(s): I50.23 - ACUTE ON CHRONIC SYSTOLIC (CONGESTIVE) HEART FAILURE SNOMED Code(s): 933573986 (9) CAD (coronary artery disease) Current Visit: No Status: Acute Code(s): I25.10 - ATHSCL HEART DISEASE OF [place] CORONARY ARTERY W/O ANG PCTRS SNOMED Code(s): 00243149 (10) Depression with somatization Current Visit: No Status: Acute Code(s): F32.9 - MAJOR DEPRESSIVE DISORDER, SINGLE EPISODE, UNSPECIFIED SNOMED Code(s): 51285013 (11) Fibromyalgia, secondary Current Visit: No Status: Acute Code(s): M79.7 - FIBROMYALGIA SNOMED Code(s): 948124578 (12) History of hypertension Current Visit: No Status: Acute Code(s): Z86.79 - PERSONAL HISTORY OF OTHER DISEASES OF THE CIRCULATORY SYSTEM SNOMED Code(s): 332727876 Plan: admit patient to the hospital Acute heart hypoxemic respiratory failure currently on 2 L nasal cannula secondary to COPD exacerbation chest x-ray remained stable consolidation no pleural effusions bnp 499 negative for influenza rsv and covid-19 Chronic hypercapnic respiratory failure Chronic obstructive pulmonary disease hyponatremia Acute kidney injury Hyperkalemia Hypotension History of ischemic cardiomyopathy ejection fraction of 25% does have AICD implant Tobacco use syndrome, patient states she will quit smoking, heavy smoker prior Cardiology consultation performed Pulmonary consultation hyperkalemia treated We'll continue to follow closely Time with Patient: Greater than 30
[2024-01-25] MEDS: FUROSEMIDE 10 MG/ML 4 ML VIAL IV SCH (12:36)
[2024-01-25] MEDS: HYDROcodone/APAP 10-325MG 1 EACH TAB PO PRN (12:54)
[2024-01-25 13:11] LABS: Appearance,Urine Clear (Clear); Bilirubin,Urine Negative (Negative); Blood,Urine Negative (Negative); Color,Urine Colorless; Glucose,Urine (UA) Trace (Negative); Ketones,Urine Negative (Negative); Leukocyte Esterase,Urine Negative (Negative); Nitrite,Urine Negative (Negative); PH, Urine 6.5 (5.0-8.0); Protein,Urine Negative (Negative); Specific Gravity,Urine 1.018 (1.001-1.035); Urobilinogen,Urine <2.0 mg/dL (<2.0)
--- NOTE | 2024-01-25 13:27 | P.CRDCN ---
History of Present Illness Consult date: 01/25/24 Consult reason: congestive heart failure History of present illness: This is a 48-year-old female patient of Dr. Montoya with past medical history of coronary artery disease with prior triple-vessel stenting, ischemic cardiomyopathy status post AICD, hypertension, dyslipidemia, morbid obesity, remote history of tobacco use, COPD, chronic hypoxic respiratory failure on home O2. We have been asked to evaluate the patient for CHF. Patient states that she presented to the hospital due to shortness of breath, swelling in her feet, burping a foul taste, weakness in her hands, involuntary movement of her hands and inability to laboratory cureman with her hands. She states that her feet hurt so bad that she could not walk. Patient states that the swelling worsened over the past 4 days. She does admit to increased salt intake recently. Her Lasix was inc reased by Dr. Rodriguez last Monday to 80 mg twice daily without improvement. She continued to have edema. Regarding smoking, she states she quit 1 month ago but was previously a 2 to 3 pack/day smoker. Patient also gives history that she was in for hospital in [place] around 01/01 for strep pneumonia. Blood pressure 111/57, heart rate 82, pulse ox 94% on 2 L nasal cannula, afebrile. EKG: Sinus rhythm with no acute ST-T wave changes Chest x-ray: Stable cardiomegaly. Slightly diminished lung volumes. No evidence of CHF. No pleural effusion or pneumothorax. CTA of the chest nondiagnostic for evaluation of PE. No obvious thrombus. No definite focal airspace consolidation. Mild vascular congestion may be present. No pleural effusion or pneumothorax. Laboratory studies: Hemoglobin 11.4, WBC 6.4. D-dimer 0.61. Sodium 126, potassium 6.2 and repeat 5.9, BUN 56, creatinine 1.34. Magnesium 2.4. Troponin negative x 1. proBNP 499. Influenza A, influenza B, RSV, COVID-19 not detecte d. Home cardiac medications according to office visit on 01/17/2024: Aldactone 25 mg twice daily, aspirin 81 mg daily, Entresto 49 mg - 51 mg 1 twice daily, Zetia 10 mg daily, Imdur 30 mg daily, Lasix 60 mg 2 times daily, Lipitor 80 mg daily, metoprolol tartrate 12.5 mg twice daily, Nitrostat as needed. Echocardiogram performed on 04/24/2023 reveals EF of 25%, mild to moderate aortic regurgitation. Cardiac catheterization history: May 2020 revealing intermediate restenosis involving the RCA and LAD. Patent stent in the left circumflex. Medical management was recommended. Lexiscan Cardiolite stress test performed on 11/08/2022 revealed large anterior scar Review Of Systems: At the time of my exam: CONSTITUTIONAL: Denies fever or chills. HEENT: Denies blurred vision, vision changes, or eye pain. Denies hemoptysis CARDIOVASCULAR: Denies chest pain. Denies orthopnea. Denies PND. Denies palpitations RESPIRATORY: Reports dyspnea on exertion, reports shortness of breath. GASTROINTESTINAL: Denies abdominal pain. Denies nausea or vomiting. HEMATOLOGIC: Denies bleeding disorders. GENITOURINARY: Denies any blood in urine. SKIN: Denies puritis. Denies rash. Physical examination: Gen: This is a morbidly obese 48-year-old female in no acute distress VS: reviewed HEENT: Head is atraumatic, normocephalic. Pupils equal, round. Sclerae is anicteric. NECK: Supple. No JVD. LUNGS: Mild crackles bilaterally. No intercostal retractions. HEART: Regular rate and rhythm. Soft systolic murmur. ABDOMEN: Soft No tenderness. EXTREMITIES: 2+ bilateral lower extremity edema. No calf tenderness. NEUROLOGICAL: Patient is awake, alert and oriented x3. Assessment: Acute on chronic systolic heart failure Acute kidney injury Hyperkalemia Hyponatremia Coronary artery disease with prior triple-vessel stenting Ischemic cardiomyopathy status post AICD Hypertension Dyslipidemia Mild to moderate aortic regurgitation Morbid obesity with BMI of 45 History of tobacco use, patient quit 1 month ago COPD Chronic hypoxic respiratory failure on home oxygen Recent hospitalization in [place] for pneumonia Plan: Resume patient's home cardiac medications with the following changes Hold Aldactone, hold Entresto and hold Lasix Patient will be started on IV Lasix 40 mg every 12 hours Monitor LOU, daily weights, electrolytes and renal function Obtain 2-D echocardiogram and Doppler study to assess cardiac structure and function Further recommendations to follow based upon clinical course Smoking cessation. Patient will be provided the [place] quit line information at discharge. Thank you kindly for this consultation. Nurse practitioner note has been reviewed, I agree with documented findings and plan of care. Patient was seen and examined. Past Medical History Past Medical History: Asthma, Coronary Artery Disease (CAD), Chest Pain / Angina, Heart Failure, COPD, Fibromyalgia, GERD/Reflux, Hyperlipidemia, Myocardial Infarction ([place]), Musculoskeletal Disorder, Osteoarthritis (OA), Pneumonia Additional Past Medical History / Comment(s): Has Pain Pump and AICD. Ishemic Cardiomyopathy. Hx [place] X3 - 2004, 2012, 2017. Hx bronchitis. Chronic back pain, lumbar Degenerative Disc Disease, occasional neck pain, osteoporosis, migraines. Hx UTIs, kidney stones. Vertigo. Last Myocardial Infarction Date:: 2016 History of Any Multi-Drug Resistant Organisms: None Reported Past Surgical History: AICD, Heart Catheterization, Heart Catheterization With Stent, Orthopedic Surgery, Tubal Ligation Additional Past Surgical History / Comment(s): Multiple stents, left hand surgery, pain clinic procedures, Medtronic Pain Pump surgically implanted. Past Anesthesia/Blood Transfusion Reactions: No Reported Reaction, Motion Sickness Date of Last Stent Placement:: 08-13-16 Type of Cardiac Device: AICD Device Placement Date:: 2016 Qubole. Past Psychological History: Anxiety, Bipolar, Depression Smoking Status: Current every day smoker Past Alcohol Use History: Occasional Past Drug Use History: Marijuana - Past Family History Mother Family Medical History: Coronary Artery Disease (CAD), Fibromyalgia, Hyperlipidemia Additional Family Medical History / Comment(s): Emotional problems, bipolar. Father Family Medical History: CVA/TIA, Fibromyalgia, Hyperlipidemia, Hypertension, Musculoskeletal Disorder Additional Family Medical History / Comment(s): MS. Sister(s) History Unknown: Yes Family Medical History: Hyperlipidemia Medications and Allergies Home Medications Medication Instructions Recorded Confirmed Type Omeprazole [PriLOSEC] 40 mg PO DAILY@0700 11/29/16 01/25/24 History Atorvastatin [Lipitor] 80 mg PO DAILY@189911/30/16 01/25/24 History Divalproex ER [Depakote ER] 1,000 mg PO DAILY@1200 02/06/17 01/25/24 History Alendronate Sodium 70 mg PO COHEN@0706/29/17 01/25/24 History Metoprolol Tartrate [Lopressor] 12.5 mg PO BID@1200,1900 09/25/19 01/25/24 History Isosorbide Mononitrate [Isosorbide 30 mg PO DAILY@1000 11/19/19 01/25/24 History Mononitrate ER] Spironolactone [Aldactone] 25 mg PO BID@1000,1600 11/19/19 01/25/24 History Furosemide [Lasix] 80 mg PO BID@0700,1200 01/19/20 01/25/24 History Escitalopram [Lexapro] 20 mg PO DAILY@1900 04/27/20 01/25/24 History ALPRAZolam [Xanax] 0.25 mg PO BID PRN 02/12/23 01/25/24 History Aspirin EC [Ecotrin Low Dose] 81 mg PO DAILY@1600 02/12/23 01/25/24 History Gabapentin [Neurontin] 900 mg PO TID@1000,1600,2200 02/12/23 01/25/24 History Sacubitril/Valsartan [Entresto 24 1 tab PO BID@1000,1600 02/12/23 01/25/24 History mg-26 mg Tablet] traZODone HCL [Desyrel] 25 mg PO HS@2200 02/12/23 01/25/24 History Ezetimibe [Zetia] 10 mg PO DAILY@1000 04/23/23 01/25/24 History Albuterol Sulfate [Ventolin HFA] 2 puff INHALATION RT-Q6H PRN 01/25/24 01/25/24 History Fluticasone/Umeclidin/Vilanter 1 puff INHALATION RT-DAILY 01/25/24 01/25/24 History [Trelegy Ellipta 200-62.5-25] Patient Own Pump 0 bag 01/25/24 History oxyCODONE-APAP 5-325MG [Percocet 1 tab PO BID PRN 01/25/24 01/25/24 History 5-325 mg] Allergies Allergy/AdvReac Type Severity Reaction Status Date / Time moxifloxacin HCl Allergy Rash/Hives Verified 01/25/24 11:58 [From Avelox] Physical Exam Vitals: Vital Signs Temp Pulse Pulse Resp BP BP Pulse Ox 01/25/24 07:23 882 H 01/25/24 05:40 98.6 F 111/57 01/25/24 04:12 74 20 96/45 94 L 01/25/24 04:01 68 01/25/24 03:51 64 01/25/24 02:56 68 14 94/61 94 L 01/25/24 02:17 70 07/04/24 02:12 68 01/25/24 01:11 65 14 89/62 93 L 01/25/24 00:08 97.7 F 74 20 83/54 98 Intake and Output 01/24/24 01/25/24 01/25/24 22:59 06:59 14:59 Intake Total 0 Balance 0 Intake: Oral 0 Other: Voiding Method Diaper Incontinent External Catheter # Voids 0 # Bowel Movements 0 Weight 113.8 kg Results 01/25/24 00:53 01/25/24 07:40 Cardiac Enzymes 01/25/24 01/25/24 Range/Units 00:53 00:53 AST 28 (14-36) U/L Troponin I <0.012 (0.000-0.034) ng/mL Coagulation 01/25/24 Range/Units 00:53 PT 9.8 L (10.0-12.5) sec APTT 25.4 (22.0-30.0) sec CBC 01/25/24 Range/Units 00:53 WBC 6.4 (3.8-10.6) k/uL RBC 3.63 L (3.80-5.40) m/uL Hgb 11.4 (11.4-16.0) gm/dL Hct 34.2 (34.0-46.0) % Plt Count 232 (150-450) k/uL Comprehensive Metabolic Panel 01/25/24 01/25/24 Range/Units 00:53 02:30 Sodium 126 L (137-145) mmol/L Potassium 6.2 H* 5.9 H (3.5-5.1) mmol/L Chloride 90 L (98-107) mmol/L Carbon Dioxide 31 H (22-30) mmol/L BUN 56 H (7-17) mg/dL Creatinine 1.34 H (0.52-1.04) mg/dL Glucose 90 (74-99) mg/dL Calcium 9.5 (8.4-10.2) mg/dL AST 28 (14-36) U/L ALT 34 (4-34) U/L Alkaline Phosphatase 95 (38-126) U/L Total Protein 6.1 L (6.3-8.2) g/dL Albumin 3.6 (3.5-5.0) g/dL Current Medications Generic Name Dose Route Start Last Admin Trade Name Freq PRN Reason Stop Dose Admin Albuterol/Ipratropium 3 ml 01/25/24 04:00 01/25/24 03:50 Ipratropium-Albuterol 3 Ml Neb INHALATION Not Given RT-Q4H [facility] Methylprednisolone Sodium Succinate 40 mg 01/25/24 09:00 Methylprednisolone Sod Succi 40 Mg/Ml 1 Ml Vial IV Q12HR [facility] Naloxone HCl 0.2 mg 01/25/24 03:50 Naloxone 0.4 Mg/Ml 1 Ml Vial IV Q2M PRN Opioid Reversal Ondansetron HCl 4 mg 01/25/24 03:50 Ondansetron 4 Mg/2 Ml Vial IVP Q8HR PRN Nausea And Vomiting Intake and Output 01/24/24 01/25/24 01/25/24 22:59 06:59 14:59 Intake Total 0 Balance 0 Intake: Oral 0 Other: Voiding Method Diaper Incontinent External Catheter # Voids 0 # Bowel Movements 0 Weight 113.8 kg 01/25/24 00:53 01/25/24 02:30
[2024-01-25 13:41] LABS: Amphetamine Screen,Urine Not Detected (NotDetected); Barbiturate Screen,Urine Not Detected (NotDetected); Benzodiazepines Screen,Urine Not Detected (NotDetected); Cocaine Screen,Urine Not Detected (NotDetected); Methadone Screen, Urine Not Detected (NotDetected); Opiate Screen,Urine Detected (NotDetected); Oxycodone Screen, Urine Not Detected (NotDetected); Phencyclidine Screen,Urine Not Detected (NotDetected); Tricyclic Antidepressant,Urine Not Detected (NotDetected); Urn Cannabinoid Scrn Detected (NotDetected)
--- NOTE | 2024-01-25 13:41 | P.NPCON ---
History of Present Illness - Reason for Consult Consult date: 01/25/24 - Chief Complaint Edema - History of Present Illness Patient is a 48-year-old female who presents emergency department with multiple complaints. Primary complaints are shortness of breath as well as hypotension. Has a history remarkable for COPD on 2 L nasal cannula at home, heart failure, CAD with AICD in place, hyperlipidemia, prior cardiac stents. Also has a pain pump. Presents complaining of lower extremity edema, as well as worsening shortness of breath and hypotension. All worse over the last week. Has been checking blood pressures at home with systolic blood pressures in the 80s or 90s over this period of time as well as increased shortness of breath over this time as well. She was taking Lasix at home and dose was recently adjusted but did not help much with edema. She also takes Entresto at home for her heart. Feels better today on exam but with persistent edema. Review of Systems Constitutional: Reports as per HPI Past Medical History Past Medical History: Asthma, Coronary Artery Disease (CAD), Chest Pain / Angina, Heart Failure, COPD, Fibromyalgia, GERD/Reflux, Hyperlipidemia, Myocardial Infarction (TN), Musculoskeletal Disorder, Osteoarthritis (OA), Pneumonia Additional Past Medical History / Comment(s): Has Pain Pump and AICD. Ishemic Cardiomyopathy. Hx TN X3 - 2004, 2012, 2017. Hx bronchitis. Chronic back pain, lumbar Degenerative Disc Disease, occasional neck pain, osteoporosis, migraines. Hx UTIs, kidney stones. Vertigo. Last Myocardial Infarction Date:: 2017 History of Any Multi-Drug Resistant Organisms: None Reported Past Surgical History: AICD, Heart Catheterization, Heart Catheterization With Stent, Orthopedic Surgery, Tubal Ligation Additional Past Surgical History / Comment(s): Multiple stents, left hand surgery, pain clinic procedures, [employer] Pain Pump surgically implanted. Past Anesthesia/Blood Transfusion Reactions: No Reported Reaction, Motion Sickness Date of Last Stent Placement:: 08-13-16 Type of Cardiac Device: AICD Device Placement Date:: 2016 [employer]. Past Psychological History: Anxiety, Bipolar, Depression Smoking Status: Current every day smoker Past Alcohol Use History: Occasional Past Drug Use History: Marijuana - Past Family History Mother Family Medical History: Coronary Artery Disease (CAD), Fibromyalgia, Hyperlipidemia Additional Family Medical History / Comment(s): Emotional problems, bipolar. Father Family Medical History: CVA/TIA, Fibromyalgia, Hyperlipidemia, Hypertension, Musculoskeletal Disorder Additional Family Medical History / Comment(s): MS. Sister(s) History Unknown: Yes Family Medical History: Hyperlipidemia Medications and Allergies Home Medications Medication Instructions Recorded Confirmed Type Omeprazole [PriLOSEC] 40 mg PO DAILY@0700 11/29/16 01/25/24 History Atorvastatin [Lipitor] 80 mg PO DAILY@1900 11/30/16 01/25/24 History Divalproex ER [Depakote ER] 1,000 mg PO DAILY@1200 02/06/17 01/25/24 History Alendronate Sodium 70 mg PO COHEN@0700 06/29/17 01/25/24 History Metoprolol Tartrate [Lopressor] 12.5 mg PO BID@1200,1900 09/25/19 01/25/24 History Isosorbide Mononitrate [Isosorbide 30 mg PO DAILY@1000 11/19/19 01/25/24 History Mononitrate ER] Spironolactone [Aldactone] 25 mg PO BID@1000,1600 11/19/19 01/25/24 History Furosemide [Lasix] 80 mg PO BID@0700,1200 01/19/20 01/25/24 History Escitalopram [Lexapro] 20 mg PO DAILY@1900 04/27/20 01/25/24 History ALPRAZolam [Xanax] 0.25 mg PO BID PRN 02/12/23 01/25/24 History Aspirin EC [Ecotrin Low Dose] 81 mg PO DAILY@1600 02/12/23 01/25/24 History Gabapentin [Neurontin] 900 mg PO TID@1000,1600,219902/12/23 01/25/24 History Sacubitril/Valsartan [Entresto 24 1 tab PO BID@1000,1600 02/12/23 01/25/24 History mg-26 mg Tablet] traZODone HCL [Desyrel] 25 mg PO HS@219902/12/23 01/25/24 History Ezetimibe [Zetia] 10 mg PO DAILY@1000 04/23/23 01/25/24 History Albuterol Sulfate [Ventolin HFA] 2 puff INHALATION RT-Q6H PRN 01/25/24 01/25/24 History Fluticasone/Umeclidin/Vilanter 1 puff INHALATION RT-DAILY 01/25/24 01/25/24 History [Trelegy Ellipta 200-62.5-25] Patient Own Pump 0 bag 01/25/24 History oxyCODONE-APAP 5-325MG [Percocet 1 tab PO BID PRN 01/25/24 01/25/24 History 5-325 mg] Allergies Allergy/AdvReac Type Severity Reaction Status Date / Time moxifloxacin HCl Allergy Rash/Hives Verified 01/25/24 11:58 [From Avelox] Physical Exam Vitals: Vital Signs Temp Pulse Pulse Resp BP BP Pulse Ox 01/25/24 12:06 76 01/25/24 11:55 76 01/25/24 08:00 97.4 F L 74 20 101/62 93 L 01/25/24 07:23 882 H 01/25/24 05:40 98.6 F 111/57 01/25/24 04:12 74 20 96/45 94 L 01/25/24 04:01 68 01/25/24 03:51 64 01/25/24 02:56 68 14 94/61 94 L 01/25/24 02:17 70 01/25/24 02:12 68 01/25/24 01:11 65 14 89/62 93 L 01/25/24 00:08 97.7 F 74 20 83/54 98 Intake and Output 01/24/24 01/25/24 01/25/24 22:59 06:59 14:59 Intake Total 0 118 Balance 0 118 Intake: Oral 0 118 Other: Voiding Method Diaper Incontinent External Catheter # Voids 0 # Bowel Movements 0 Weight 113.8 kg Results - Lab Results Most recent lab results ABG pH 7.39 (7.35-7.45) 01/25/24 06:11 ABG pCO2 56 mmHg (35-45) H 01/25/24 06:11 ABG pO2 73 mmHg (83-108) L 01/25/24 06:11 ABG HCO3 34 mmol/L (21-25) H 01/25/24 06:11 ABG O2 Saturation 95.5 % (94-97) 01/25/24 06:11 Calcium 9.5 mg/dL (8.4-10.2) 01/25/24 00:53 Magnesium 2.4 mg/dL (1.6-2.3) H 01/25/24 00:53 01/25/24 00:53 01/25/24 07:40 Assessment and Plan Assessment: 1. Non-oliguric HERLINDA likely cardiorenal syndrome. Baseline creatinine 0.7-1.0 mg/dL presented at 1.3. 2. Acute Exacerbation CHF with fluid overload 3. HTN 4. Hypoxic respiratory failure, likely combination COPD and CHF 5. Hyperkalemia related to HERLINDA and Entresto use. Plan: Agree with IV Lasix given volume overload. Check Renal US rule out obstruction Strict I/O's, daily BMP Hold Entresto for now Potassium should conitnue to improve further with diuresis but can give further Lokelma if remains elevated.
--- NOTE | 2024-01-25 16:42 | US ---
EXAMINATION TYPE: US kidneys/renal and bladder DATE OF EXAM: 01/25/2024 COMPARISON: US 2019 CLINICAL INDICATION: Female, 48 years old with history of HERLINDA; HERLINDA EXAM MEASUREMENTS: Right Kidney: 10.5 x 5.8 x 4.5 cm Left Kidney: 10.3 x 5.2 x 5.3 cm Very limited exam due to patient body habitus and gas. Right Kidney: No hydronephrosis or masses seen Limited visibility of lower pole. Left Kidney: No hydronephrosis or masses seen Limited visibility of lower pole. Bladder: Appears anechoic. Bilateral Jets seen: No, unable to properly evaluate due to constant patient movement. IMPRESSION: No evidence for obstructive uropathy. Poorly visualized lower pole bilaterally.
[2024-01-26 09:59] LABS: Basophils % (A) 0 %; Eosinophils # (A) 0.1 k/uL (0-0.7); Eosinophils % (A) 1 %; HCT 34.9 % (34.0-46.0); HGB 11.5 gm/dL (11.4-16.0); Lymphocytes # (A) 0.8 k/uL (1.0-4.8); Lymphocytes % (A) 7 %; MCH 30.6 pg (25.0-35.0); MCHC 32.9 g/dL (31.0-37.0); MCV 93.1 fL (80.0-100.0); Mean Platelet Volume 7.9; Monocytes # (A) 0.7 k/uL (0-1.0); Monocytes % (A) 6 %; Neutrophils # (A) 9.9 k/uL (1.3-7.7); Neutrophils % (A) 86 %; Platelet Count 228 k/uL (150-450); RBC 3.75 m/uL (3.80-5.40); RDW 14.7 % (11.5-15.5); WBC 11.6 k/uL (3.8-10.6)
[2024-01-26 10:03] LABS: ALT 38 U/L (4-34); AST 34 U/L (14-36); African American GFR (CKD) 74 (>60 ml/min/1.73 sqM); Albumin 3.7 g/dL (3.5-5.0); Alkaline Phosphatase 86 U/L (38-126); Anion Gap 6 mmol/L; Blood Urea Nitrogen 37 mg/dL (7-17); Calcium 8.8 mg/dL (8.4-10.2); Carbon Dioxide 35 mmol/L (22-30); Chloride 93 mmol/L (98-107); Glucose 181 mg/dL (74-99); Non-African American GFR(CKD) 65 (>60 ml/min/1.73 sqM); Potassium 4.5 mmol/L (3.5-5.1); Sodium 134 mmol/L (137-145); Total Bilirubin 0.3 mg/dL (0.2-1.3); Total Protein 6.3 g/dL (6.3-8.2)
--- NOTE | 2024-01-26 10:55 | CA ---
Transthoracic Echo Report Name: Sahara Denise Age: 48 Gender: F : 1975 Exam Date: 01/26/2024 08:46 Exam Location: [facility] Ht (in): 62 Wt (lb): 250 Ordering Physician: Ivonne Ardon Attending/Referring Phys: [id number], Reva Collections Rep Robyn Silva RDCS Procedure CPT: Indications: LVF w definity Cardiac Hx: Technical Quality: Fair Contrast 1: Definity Total Dose (mL): 2 Contrast 2: Total Dose (mL): MEASUREMENTS (Male / Female) Normal Values 2D ECHO LV Diastolic Diameter PLAX 6.1 cm 4.2 - 5.9 / 3.9 - 5.3 cm LV Systolic Diameter PLAX 5.4 cm IVS Diastolic Thickness 0.9 cm 0.6 - 1.0 / 0.6 - 0.9 cm LVPW Diastolic Thickness 0.9 cm 0.6 - 1.0 / 0.6 - 0.9 cm LV Relative Wall Thickness 0.3 RV Internal Dim ED PLAX 2.4 cm LA Systolic Diameter LX 4.6 cm 3.0 - 4.0 / 2.7 - 3.8 cm LV Diastolic Volume MOD BP 107.9 cm??? 67 - 155 / 56 - 104 cm??? LV Systolic Volume MOD BP 84.0 cm??? 22 - 58 / 19 - 49 cm??? LV Ejection Fraction MOD BP 22.2 % >= 55 % LV Cardiac Index MOD BP 770.6 cm???/min???m??? LV Diastolic Volume MOD 4C 110.0 cm??? LV Systolic Volume MOD 4C 87.8 cm??? LV Ejection Fraction MOD 4C 20.2 % LV Cardiac Index MOD 4C 714.3 cm???/min???m??? LV Diastolic Length 4C 8.3 cm LV Systolic Length 4C 8.0 cm LV Diastolic Volume MOD 2C 92.2 cm??? LV Systolic Volume MOD 2C 76.1 cm??? LV Ejection Fraction MOD 2C 17.5 % LV Cardiac Index MOD 2C 519.2 cm???/min???m??? LV Diastolic Length 2C 7.2 cm LV Systolic Length 2C 7.6 cm M-MODE Aortic Root Diameter MM 2.7 cm LA Systolic Diameter MM 4.2 cm LA Ao Ratio MM 1.5 AV Cusp Separation MM 1.9 cm DOPPLER AV Peak Velocity 175.1 cm/s AV Peak Gradient 12.3 mmHg AI Peak Velocity 342.8 cm/s AI Peak Gradient 47.0 mmHg AI Pressure Half Time 585.8 ms Mitral E Point Velocity 100.4 cm/s Mitral A Point Velocity 118.0 cm/s Mitral E to A Ratio 0.9 MV Deceleration Time 278.9 ms MV E' Velocity 6.6 cm/s Mitral E to MV E' Ratio 15.2 TR Peak Velocity 277.6 cm/s TR Peak Gradient 30.8 mmHg Right Ventricular Systolic Press 40.9 mmHg FINDINGS Left Ventricle Left ventricular ejection fraction is estimated at 20-25 %. Moderately increased left ventricular diastolic diameter. Mildly increased left ventricular diastolic volume. Severely increased left ventricular systolic volume. Severely decreased left ventricular ejection fraction. [place]ham akinetic. Mid anterior, distal anterior and anterolateral akinesis. Cannot exclude left ventricular mural thrombus. Right Ventricle Normal right ventricular size and function. Mild pulmonary hypertension. Right Atrium Moderate right atrial dilatation. Catheter/pacemaker wire in the right atrial cavity. Left Atrium Moderately increased left atrial diameter. Mitral Valve Structurally normal mitral valve. Mild to moderate mitral regurgitation. No mitral stenosis. Aortic Valve Trileaflet aortic valve. Moderate aortic regurgitation. No aortic stenosis. Tricuspid Valve Structurally normal tricuspid valve. Mild tricuspid regurgitation. Pulmonic Valve Structurally normal pulmonic valve. Trace pulmonic regurgitation. No pulmonic stenosis. Pericardium No pericardial or pleural effusion. Aorta Normal size aortic root and proximal ascending aorta. CONCLUSIONS 1. Dilated left ventricle with severe impairment in the left ventricle systolic function with segmental wall motion abnormality consistent with CAD 2. Possible apical thrombus 3. Mild to moderate mitral with mild tricuspid regurgitation and mild pulmonary hypertension 4. Moderate aortic regurgitation Previewed by: Dr. Nichole Bryan MD (Electronically Signed) Final Date: 26 January 2024 10:54
--- NOTE | 2024-01-26 12:07 | P.PN ---
Subjective Sahara is a 48-year-old female well-known to the practice. She has multiple medical problems including chronic hypoxic respiratory failure, coronary disease, AICD, COPD, longstanding smoking history, and pain pump. She was recently admitted to hospital in [place] after visiting her family for acute exacerbation of CHF. I had seen her in the office for posthospital follow-up and weight increased her Lasix slightly. She said since seeing me though she continued to worsen with swelling lower extremities and became more short of breath and fatigued. She is now admitted with acute exacerbation of CHF along with edema. She has some mild acute renal failure noted as well. Overall she is improved. Vital signs show a normal temperature heart rate blood pressure. She is on 2 L of O2 via nasal cannula. Labs today show a slight white count 11.6, kidneys are overall improved. Hyperkalemia is resolved. GFR went from 47 and now 65. Cardiology and nephrology have seen her. Objective - Vital Signs Vital signs: Vital Signs Temp 97.6 F 01/26/24 09:11 Pulse 65 01/26/24 11:41 Resp 17 01/26/24 11:41 BP 117/56 01/26/24 11:41 Pulse Ox 95 01/26/24 11:41 FiO2 Intake & Output 01/25/24 01/26/24 01/26/24 18:59 06:59 18:59 Intake Total 118 240 Output Total 1000 1750 Balance -882 -1750 240 Weight 106.2 kg Intake: Oral 118 240 Output: Urine 1000 1750 Other: Voiding Method Diaper Diaper Bedside Commode Incontinent Incontinent Diaper External Catheter External Catheter - Exam General: The patient is awake and alert, morbidly obese female bit sw eaty but in no acute distress with nasal cannula oxygen Neck: The neck is supple, there is no thyromegaly, lymphadenopathy, tenderness or JVD. Cardiovascular: S1S2 is normal, There is a regular rate and rhythm. No rub or gallop is appreciated, 1/6 systolic murmur noted at the right sternal border. Respiratory: Lungs are coarse with decreased air exchange noted Gastrointestinal: Soft, non-distended, non-tender abdomen without masses or organomegaly noted. There is no rebound or guarding present. Bowel sounds are unremarkable. Musculoskeletal: Normal ROM, no tenderness, There is no pedal edema. There is no calf tenderness or swelling. No cords were appreciated. Neurological: CN II-XII intact, there are no obvious motor or sensory deficits. Coordination appears grossly intact. Speech is normal. Skin: Skin is warm and dry and no rashes or lesions are noted. - Labs CBC & Chem 7: 01/26/24 09:32 01/26/24 09:32 Labs: Abnormal Lab Results - Last 24 Hours (Table) 01/25/24 01/25/24 01/26/24 Range/Units 00:36 13:14 09:32 WBC 11.6 H (3.8-10.6) k/uL RBC 3.75 L (3.80-5.40) m/uL Neutrophils # 9.9 H (1.3-7.7) k/uL Lymphocytes # 0.8 L (1.0-4.8) k/uL Sodium (137-145) mmol/L Chloride (98-107) mmol/L Carbon Dioxide (22-30) mmol/L BUN (7-17) mg/dL Glucose (74-99) mg/dL ALT (4-34) U/L Urine Glucose (UA) Trace H (Negative) Urine Opiates Screen Detected H (NotDetected) U Marijuana (THC) Screen Detected H (NotDetected) 01/26/24 Range/Units 09:32 WBC (3.8-10.6) k/uL RBC (3.80-5.40) m/uL Neutrophils # (1.3-7.7) k/uL Lymphocytes # (1.0-4.8) k/uL Sodium 134 L (137-145) mmol/L Chloride 93 L (98-107) mmol/L Carbon Dioxide 35 H (22-30) mmol/L BUN 37 H (7-17) mg/dL Glucose 181 H (74-99) mg/dL ALT 38 H (4-34) U/L Urine Glucose (UA) (Negative) Urine Opiates Screen (NotDetected) U Marijuana (THC) Screen (NotDetected) Assessment and Plan (1) HERLINDA (acute kidney injury) Current Visit: Yes Status: Acute Code(s): N17.9 - ACUTE KIDNEY FAILURE, UNSPECIFIED SNOMED Code(s): 36300452 (2) COPD (chronic obstructive pulmonary disease) Current Visit: Yes Status: Acute Code(s): J44.9 - CHRONIC OBSTRUCTIVE PULMONARY DISEASE, UNSPECIFIED SNOMED Code(s): 40696456 (3) Dehydration Current Visit: Yes Status: Acute Code(s): E86.0 - DEHYDRATION SNOMED Code(s): 53452742 (4) Hyperkalemia Current Visit: Yes Status: Acute Code(s): E87.5 - HYPERKALEMIA SNOMED Code(s): 11337578 (5) Hypotension Current Visit: Yes Status: Acute Code(s): I95.9 - HYPOTENSION, UNSPECIFIED SNOMED Code(s): 52547996 (6) Acute on chronic systolic (congestive) heart failure Current Visit: No Status: Acute Code(s): I50.23 - ACUTE ON CHRONIC SYSTOLIC (CONGESTIVE) HEART FAILURE SNOMED Code(s): 657911621 (7) CAD (coronary artery disease) Current Visit: No Status: Acute Code(s): I25.10 - ATHSCL HEART DISEASE OF [place] CORONARY ARTERY W/O ANG PCTRS SNOMED Code(s): 40517011 (8) Ischemic cardiomyopathy Current Visit: No Status: Acute Code(s): I25.5 - ISCHEMIC CARDIOMYOPATHY SNOMED Code(s): 087851772 (9) Leukocytosis Current Visit: No Status: Acute Code(s): D72.829 - ELEVATED WHITE BLOOD CELL COUNT, UNSPECIFIED SNOMED Code(s): 698154806 (10) Mixed hyperlipidemia Current Visit: No Status: Acute Code(s): E78.2 - MIXED HYPERLIPIDEMIA SNO MED Code(s): 210673664 Plan: She will be reevaluated in the next 24 hours. She will continue on her methylprednisolone which is most likely causing a leukocytosis which is reactive, her electrolyte disturbances been corrected, nephrology and cardiology are following, she remains on furosemide, has Jay ordered for pain along with her home medications of aspirin atorvastatin, and alprazolam was added for anxiety. Repeat labs in AM.
--- NOTE | 2024-01-26 14:09 | P.PN ---
Subjective Progress Note Date: 01/26/24 Patient seen in follow-up for HERLINDA. Patient doing well and urinating more with IV Lasix. Breathing improving. Vital signs are stable. General: No acute distress. HEENT: Head exam is unremarkable. LUNGS: Diminished breath sounds. HEART: Rate and Rhythm are regular. ABDOMEN: Nontender. EXTREMITITES: No drainage. 1+ edema. Objective - Vital Signs Vital signs: Vital Signs Temp 97.6 F 01/26/24 09:11 Pulse 65 01/26/24 11:41 Resp 17 01/26/24 11:41 BP 117/56 01/26/24 11:41 Pulse Ox 95 01/26/24 11:41 FiO2 Intake & Output 01/25/24 01/26/24 01/26/24 18:59 06:59 18:59 Intake Total 118 240 Output Total 1000 1750 450 Balance -882 -1750 -210 Weight 106.2 kg Intake: Oral 118 240 Output: Urine 1000 1750 450 Other: Voiding Method Diaper Diaper Bedside Commode Incontinent Incontinent Diaper External Catheter External Catheter - Labs CBC & Chem 7: 01/26/24 09:32 01/26/24 09:32 Labs: Abnormal Lab Results - Last 24 Hours (Table) 01/26/24 01/26/24 Range/Units 09:32 09:32 WBC 11.6 H (3.8-10.6) k/uL RBC 3.75 L (3.80-5.40) m/uL Neutrophils # 9.9 H (1.3-7.7) k/uL Lymphocytes # 0.8 L (1.0-4.8) k/uL Sodium 134 L (137-145) mmol/L Chloride 93 L (98-107) mmol/L Carbon Dioxide 35 H (22-30) mmol/L BUN 37 H (7-17) mg/dL Glucose 181 H (74-99) mg/dL ALT 38 H (4-34) U/L Assessment and Plan Assessment: 1. Non-oliguric HERLINDA likely cardiorenal syndrome. Baseline creatinine 0.7-1.0 mg/dL presented at 1.3, now resolved at 1.0. Renal US no hydronephrosis. 2. Acute Exacerbation CHF with fluid overload 3. HTN 4. Hypoxic respiratory failure, likely combination COPD and CHF 5. Hyperkalemia related to HERLINDA and Entresto use-Resolved Plan: Continue with IV Lasix given volume overload. Strict I/O's, daily BMP Hold Entresto, likely resume soon.
--- NOTE | 2024-01-26 14:20 | P.PN ---
Subjective Progress Note Date: 01/26/24 Patient is a 48-year-old white female with multiple medical comorbidities including COPD, ischemic cardiomyopathy with known ejection fraction of 25%, AICD, coronary artery disease with multiple previous PCI/stenting, hyperlipidemia, chronic pain with pain pump, among other things. Her primary care provider is Dr. Hooper. Of note, patient was just recently hospitalized in [place] while visiting her mother. Apparently her mother was in the hospital. While down visiting, she was reportedly hospitalized for pneumonia. Discharged with home oxygen, and placed on 2 L/min nasal cannula. She does have history of COPD. She just recently quit smoking 2 weeks ago, prior to this a very heavy smoker according to patient's daughter who is at bedside. Over 3-4 ppd. Patient is currently lethargic and not a very good historian. She has been progressively more weak over the last 7 days. Her daughter is at bedside who provides much of the information for HPI. Over the last week, the patient has been reportedly more short of breath while at home. She has had increased swelling in her legs. Reportedly, her Lasix dose was just recently increased. She has been short of breath requiring increased oxygen demands. No significant coughing, sputum production, hemoptysis, chest pain. No fevers reported. She was negative for influenza, RSV, COVID on arrival. Chest x-ray shows stable cardiomegaly, with low lung volumes. No focal airspace consolidation noted. No pleural effusions or pneumothoraces. Due to patient's recent prolonged travels, a D-dimer was ordered which was slightly elevated at 0.61. Chest CTA was essentially nondiagnostic due to poor contrast timing. No obvious central pulm onary embolism. CBC unremarkable, without any leukocytosis. BMP: Sodium 126, potassium 6.2, chloride 90, serum bicarb 31, BUN 56, creatinine 1.34, glucose 90. Hyperkalemia was addressed with 10 units of regular insulin, 1 amp D50 W, 1 amp sodium bicarbonate 1 g calcium gluconate and 10 g of Lokelma. Repeat potassium level is pending. Troponins less than 0.012. NT proBNP 499. EKG shows normal sinus rhythm with diffuse ST/T wave abnormalities. Particularly T wave inversion in leads I aVL, V5, V6. Also, T wave inversion in leads II and aVF. She does have significant history for coronary artery disease and has had multiple PCI/stenting including 2 stents to the RCA and a stent to the left circumflex arteries. She is also known to have severe ischemic cardiomyopathy with an ejection fraction of 25%. There is also mild to moderate aortic regurgitation. She has had an AICD implanted. Patient is currently resting in bed, in a Semi-Barriga's position. She is lethargic, but will wake up to questioning. Oriented to self and place. She is on 2 L/min nasal cannula. SpO2 is 94%. Due to patient's lethargy and history of COPD, I did order an ABG which shows a PaO2 of 73, pCO2 of 56, pH of 7.39. Likely component of chronic hypercapnic respiratory failure. Earlier, blood pressure was noted to be hypotensive. Patient was fluid resuscitated with a total of 1.5 L normal saline bolus while in the ED. Current blood pressure reading 111/57 mmhg, heart rate 74. Overall hemodynamics are stable. On 01/26/2024, the patient is being seen for a follow-up. Less short of breath compared to yesterday and the patient is producing adequate amount of urine output. Remains on Lasix 40 g IV every 12 hours. Negative fluid balance of at least 2.6 L over the past 24 hours. No shortness of breath at rest. Remains on oxygen 2 L minute nasal cannula. Once again 11 with a hemoglobin 11.7 and a platelet count of 228. BUN 37 with a creatinine of 1 and a sodium levels at 134. The patient is afebrile. The patient is currently back on Entresto in combination with metoprolol and Imdur 30 mg p.o. daily. Objective - Vital Signs Vital signs: Vital Signs Temp 97.6 F 01/26/24 09:11 Pulse 71 01/26/24 09:11 Resp 16 01/26/24 09:11 BP 110/69 01/26/24 09:11 Pulse Ox 95 01/26/24 09:11 FiO2 Intake & Output 01/25/24 01/26/24 01/26/24 18:59 06:59 18:59 Intake Total 118 240 Output Total 1000 1750 Balance -882 -1750 240 Weight 106.2 kg Intake: Oral 118 240 Output: Urine 1000 1750 Other: Voiding Method Diaper Diaper Bedside Commode Incontinent Incontinent Diaper External Catheter External Catheter - Exam GENERAL EXAM: Lethargic, awakens and responds to verbal questioning but then quickly falls back to sleep when not stimulated, 48-year-old morbidly obese female, diaphoretic, fairly comfortable in no apparent distress. HEAD: Normocephalic and atraumatic EYES: Normal reaction of pupils, equal size. NOSE: Clear with pink turbinates. THROAT: No erythema or exudates. NECK: No masses, no JVD. CHEST: No chest wall deformity. LUNGS: Equal air entry with markedly diminished lung sounds bilaterally. No crackles, wheeze, rhonchi or dullness. On 2 L/min nasal cannula. No conversational dyspnea or accessory muscle use.. CVS: S1 and S2 normal with no audible murmur, regular rhythm. No extra heart s ounds ABDOMEN: Obese abdomen, active bowel sounds, no appreciable masses or hepatosplenomegaly, no guarding or rigidity. SPINE: No scoliosis or deformity SKIN: No rashes CENTRAL NERVOUS SYSTEM: No focal deficits, tone is normal in all 4 extremities. EXTREMITIES: There bilateral lower extremity edema. Clubbing, or cyanosis. Peripheral pulses are intact. - Labs CBC & Chem 7: 01/26/24 09:32 01/26/24 09:32 Labs: Abnormal Lab Results - Last 24 Hours (Table) 01/25/24 01/25/24 Range/Units 00:36 13:14 Urine Glucose (UA) Trace H (Negative) Urine Opiates Screen Detected H (NotDetected) U Marijuana (THC) Screen Detected H (NotDetected) Assessment and Plan Assessment: Acute hypoxemic respiratory failure, currently on 2 L/min nasal cannula, possibly secondary to acute COPD exacerbation, chest x-ray demonstrates stable cardiomegaly, diminished lung volumes, no focal airspace consolidation. No pleural effusions or pneumothoraces. NT proBNP only 499. Negative for influenza, RSV, COVID. . Acute decompensated CHF with systolic heart failure, improving and the patient responded to diuresis Chronic hypercapnic respiratory failure Chronic obstructive pulmonary disease Altered mental status, under investigation Hyponatremia Acute kidney injury, improving Hyperkalemia, secondary to above, treated with K cocktail including 10 units regular insulin, 1 amp D50 W, 1 amp sodium bicarbonate, 1 g calcium gluconate, 10 g of Lokelma Hypotension, improved after fluid resuscitation History of ischemic cardiomyopathy, with ejection fraction of 25%, status post AICD implantation Coronary artery disease, with history of previous multiple PCI/stenting History of hyperlipidemia Chronic pain, with implanted pain pump Recent former tobacco smoker, reportedly quit 2 weeks ago, prior to this was a very heavy tobacco smoker, smoking over 3 to 4 packs/day Morbid obesity, with a BMI of 45.9 kg/m Plan: Titrate oxygen flow to maintain saturation above 90%, currently on 2 L Continue Lasix 40 mg IV every 12 hours Patient was started on Entresto 1 tablet a day Metoprolol 12.5 mg p.o. twice a day Chronically fluid balance and urine output Chest x-ray does not show any focal infiltrates or evidence of pneumonia. Chest CTA was technically nondiagnostic study due to poor contrast timing. No obvious central/saddle thrombus Patient reportedly aggressively diuresed on outpatient basis, hypotension is improved with judicious fluid resuscitation Most recent available echocardiogram from April, demonstrates a severely reduced left ventricular ejection fraction of 25% along with mild to moderate aortic regurgitation. Cardiology was asked to evaluate this patient as well. Potassium level is improved Continue bronchodilators Start the patient on prednisone burst taper Continue to follow
--- NOTE | 2024-01-26 14:36 | P.PN ---
Subjective Progress Note Date: 01/26/24 Consult reason: congestive heart failure History of present illness: This is a 48-year-old female patient of Dr. Montoya with past medical history of coronary artery disease with prior triple-vessel stenting, ischemic cardiomyopathy status post AICD, hypertension, dyslipidemia, morbid obesity, remote history of tobacco use, COPD, chronic hypoxic respiratory failure on home O2. We have been asked to evaluate the patient for CHF. 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 She states that her feet hurt so bad that she could not walk. Patient states that the swelling worsened over the past 4 days. She does admit to increased salt intake recently. Her Lasix was increased by Dr. Rodriguez last Monday to 80 mg twice daily without improvement. She continued to have edema. Regarding smoking, she states she quit 1 month ago but was previously a 2 to 3 pack/day smoker. Patient also gives history that she was in for hospital in [place] around 01/01 for strep pneumonia. Blood pressure 111/57, heart rate 82, pulse ox 94% on 2 L nasal cannula, afebrile. EKG: Sinus rhythm with no acute ST-T wave changes Chest x-ray: Stable cardiomegaly. Slightly diminished lung volumes. No evidence of CHF. No pleural effusion or pneumothorax. CTA of the chest nondiagnostic for evaluation of PE. No obvious thrombus. No definite focal airspace consolidation. Mild vascular congestion may be present. No pleural effusion or pneumothorax. Laboratory studies: Hemoglobin 11.4, WBC 6.4. D-dimer 0.61. Sodium 126, potassium 6.2 and repeat 5.9, BUN 56, creatinine 1.34. Magnesium 2.4. Troponin negative x 1. proBNP 499. Influenza A, influenza B, RSV, COVID-19 not detected. Home cardiac medications according to office visit on 01/17/2024: Aldactone 25 mg twice daily, aspirin 81 mg daily, Entresto 49 mg - 51 mg 1 twice daily, Zetia 10 mg daily, Imdur 30 mg daily, Lasix 60 mg 2 times daily, Lipitor 80 mg daily, metoprolol tartrate 12.5 mg twice daily, Nitrostat as needed. Echocardiogram performed on 04/24/2023 reveals EF of 25%, mild to moderate aortic regurgitation. Cardiac catheterization history: May 2020 revealing intermediate restenosis involving the RCA and LAD. Patent stent in the left circumflex. Medical management was recommended. Lexiscan Cardiolite stress test performed on 11/08/2022 revealed large anterior scar 01/25 Patient states that her breathing is a little bit better today. Lower extremity edema is back to her normal baseline. Kidney function is also improved. Aldactone, Entresto and home Lasix dose were on hold. Patient has been on IV Lasix 40 mg every 12 hours. Echocardiogram reveals EF of 20 to 25%, dilated left ventricle with segmental wall motion abnormalities consistent with CAD. Possible apical thrombus. Mild to moderate mitral with mild tricuspid regurgitation and mild pulmonary hypertension. Moderate aortic regurgitation. Blood pressure 117/56, heart rate 60s and 70s, pulse ox 95% on 2 L nasal cannula. Repeat blood work reveals WBC 11.6, hemoglobin 11.5. Potassium 3.5, sodium 134, BUN 37 creatinine 1.03. Physical examination: Gen: This is a morbidly obese 48-year-old female in no acute distress VS: reviewed HEENT: Head is atraumatic, normocephalic. Pupils equal, round. Sclerae is anicteric. NECK: Supple. No JVD. LUNGS: Mild crackles bilaterally. No intercostal retractions. HEART: Regular rate and rhythm. Soft systolic murmur. ABDOMEN: Soft No tenderness. EXTREMITIES: 1+ bilateral lower extremity edema. No calf tenderness. NEUROLOGICAL: Patient is awake, alert and oriented x3. Assessment: Acute on chronic systolic heart failure Acute kidney injury, resolved Hyperkalemia, resolved Hyponatremia, improving Coronary artery disease with prior triple-vessel stenting Ischemic cardiomyopathy status post AICD Hypertension Dyslipidemia Mild to moderate aortic regurgitation Morbid obesity with BMI of 45 History of tobacco use, patient quit 1 month ago COPD Chronic hypoxic respiratory failure on home oxygen Recent hospitalization in [place] for pneumonia Possible apical thrombus on echocardiogram Plan: Resume patient back on Entresto 24 mg - 26 mg 1 twice daily Continue Lopressor 12.5 mg twice daily, Imdur 30 mg daily Discontinue IV Lasix 40 mg every 12 hours tonight, and start Bumex 1 mg twice daily in the morning Resume Aldactone at 25 mg daily (patient was on 25 mg twice daily) Monitor LOU, daily weights, electrolytes and renal function Further recommendations to follow based upon clinical course Smoking cessation. Patient will be provided the [employer] quit line information at discharge. Anticipate possible discharge home tomorrow. Patient will follow-up in the office with Dr. Montoya in 1 to 2 weeks after discharge. Nurse practitioner note has been reviewed, I agree with documented findings and plan of care. Patient was seen and examined. Objective - Vital Signs Vital signs: Vital Signs Temp 97.6 F 01/26/24 09:11 Pulse 65 01/26/24 11:41 Resp 17 01/26/24 11:41 BP 117/56 01/26/24 11:41 Pulse Ox 95 01/26/24 11:41 FiO2 Intake & Output 01/25/24 01/26/24 01/26/24 18:59 06:59 18:59 Intake Total 118 240 Output Total 1000 1750 Balance -882 -1750 240 Weight 106.2 kg Intake: Oral 118 240 Output: Urine 1000 1750 Other: Voiding Method Diaper Diaper Bedside Commode Incontinent Incontinent Diaper External Catheter External Catheter - Labs CBC & Chem 7: 01/26/24 09:32 01/26/24 09:32 Labs: Abnormal Lab Results - Last 24 Hours (Table) 01/25/24 01/25/24 01/26/24 Range/Units 00:36 13:14 09:32 WBC 11.6 H (3.8-10.6) k/uL RBC 3.75 L (3.80-5.40) m/uL Neutrophils # 9.9 H (1.3-7.7) k/uL Lymphocytes # 0.8 L (1.0-4.8) k/uL Sodium (137-145) mmol/L Chloride (98-107) mmol/L Carbon Dioxide (22-30) mmol/L BUN (7-17) mg/dL Glucose (74-99) mg/dL ALT (4-34) U/L Urine Glucose (UA) Trace H (Negative) Urine Opiates Screen Detected H (NotDetected) U Marijuana (THC) Screen Detected H (NotDetected) 01/26/24 Range/Units 09:32 WBC (3.8-10.6) k/uL RBC (3.80-5.40) m/uL Neutrophils # (1.3-7.7) k/uL Lymphocytes # (1.0-4.8) k/uL Sodium 134 L (137-145) mmol/L Chloride 93 L (98-107) mmol/L Carbon Dioxide 35 H (22-30) mmol/L BUN 37 H (7-17) mg/dL Glucose 181 H (74-99) mg/dL ALT 38 H (4-34) U/L Urine Glucose (UA) (Negative) Urine Opiates Screen (NotDetected) U Marijuana (THC) Screen (NotDetected)
[2024-01-26] MEDS: SACUBITRIL/VALSARTAN 24 MG-26 MG TABLET PO SCH (16:02)
[2024-01-26 16:58] LABS: Glucose,Whole Blood 201 mg/dL (70-110)
[2024-01-26 19:47] LABS: Glucose,Whole Blood 232 mg/dL (70-110)
[2024-01-26] MEDS: APIXABAN 5 MG TAB PO SCH (21:19)
[2024-01-26] MEDS: ALPRAZolam 1 MG TAB PO PRN (21:19)
[2024-01-26 21:24] VITALS: RESP 18
[2024-01-27] MEDS: predniSONE 20 MG TAB PO SCH (07:42)
[2024-01-27] MEDS: SPIRONOLACTONE 25 MG TAB PO SCH (07:42)
[2024-01-27] MEDS: BUMETANIDE 1 MG TAB PO SCH (07:42)
[2024-01-27 08:25] LABS: Basophils % (A) 0 %; Eosinophils % (A) 0 %; HCT 34.1 % (34.0-46.0); HGB 11.2 gm/dL (11.4-16.0); Lymphocytes # (A) 2.5 k/uL (1.0-4.8); Lymphocytes % (A) 27 %; MCH 31.2 pg (25.0-35.0); MCHC 32.7 g/dL (31.0-37.0); MCV 95.4 fL (80.0-100.0); Mean Platelet Volume 7.6; Monocytes # (A) 0.7 k/uL (0-1.0); Monocytes % (A) 7 %; Neutrophils # (A) 5.9 k/uL (1.3-7.7); Neutrophils % (A) 64 %; Platelet Count 241 k/uL (150-450); RBC 3.58 m/uL (3.80-5.40); RDW 14.6 % (11.5-15.5); WBC 9.3 k/uL (3.8-10.6)
[2024-01-27 08:42] LABS: ALT 54 U/L (4-34); AST 40 U/L (14-36); African American GFR (CKD) >90 (>60 ml/min/1.73 sqM); Albumin 3.5 g/dL (3.5-5.0); Alkaline Phosphatase 68 U/L (38-126); Anion Gap 3 mmol/L; Blood Urea Nitrogen 33 mg/dL (7-17); Calcium 8.8 mg/dL (8.4-10.2); Carbon Dioxide 34 mmol/L (22-30); Chloride 101 mmol/L (98-107); Glucose 113 mg/dL (74-99); Magnesium 2.4 mg/dL (1.6-2.3); Non-African American GFR(CKD) >90 (>60 ml/min/1.73 sqM); Potassium 4.3 mmol/L (3.5-5.1); Sodium 138 mmol/L (137-145); Total Bilirubin 0.4 mg/dL (0.2-1.3)
[2024-01-27 08:53] VITALS: TEMP 97.8
[2024-01-27 09:53] LABS: T4, Free (Free Thyroxine) 0.58 ng/dL (0.78-2.19)
[2024-01-27] MEDS: IPRATROPIUM-ALBUTEROL 3 ML NEB INHALATION SCH (11:43)
--- NOTE | 2024-01-27 12:15 | P.PN ---
Subjective Progress Note Date: 01/27/24 Patient is a 48-year-old white female with multiple medical comorbidities including COPD, ischemic cardiomyopathy with known ejection fraction of 25%, AICD, coronary artery disease with multiple previous PCI/stenting, hyperlipidemia, chronic pain with pain pump, among other things. Her primary care provider is Dr. Hooper. Of note, patient was just recently hospitalized in [place] while visiting her mother. Apparently her mother was in the hospital. While down visiting, she was reportedly hospitalized for pneumonia. Discharged with home oxygen, and placed on 2 L/min nasal cannula. She does have history of COPD. She just recently quit smoking 2 weeks ago, prior to this a very heavy smoker according to patient's daughter who is at bedside. Over 3-4 ppd. Patient is currently lethargic and not a very good historian. She has been progressively more weak over the last 7 days. Her daughter is at bedside who provides much of the information for HPI. Over the last week, the patient has been reportedly more short of breath while at home. She has had increased swelling in her legs. Reportedly, her Lasix dose was just recently increased. She has been short of breath requiring increased oxygen demands. No significant coughing, sputum production, hemoptysis, chest pain. No fevers reported. She was negative for influenza, RSV, COVID on arrival. Chest x-ray shows stable cardiomegaly, with low lung volumes. No focal airspace consolidation noted. No pleural effusions or pneumothoraces. Due to patient's recent prolonged travels, a D-dimer was ordered which was slightly elevated at 0.61. Chest CTA was essentially nondiagnostic due to poor contrast timing. No obvious central pulm onary embolism. CBC unremarkable, without any leukocytosis. BMP: Sodium 126, potassium 6.2, chloride 90, serum bicarb 31, BUN 56, creatinine 1.34, glucose 90. Hyperkalemia was addressed with 10 units of regular insulin, 1 amp D50 W, 1 amp sodium bicarbonate 1 g calcium gluconate and 10 g of Lokelma. Repeat potassium level is pending. Troponins less than 0.012. NT proBNP 499. EKG shows normal sinus rhythm with diffuse ST/T wave abnormalities. Particularly T wave inversion in leads I aVL, V5, V6. Also, T wave inversion in leads II and aVF. She does have significant history for coronary artery disease and has had multiple PCI/stenting including 2 stents to the RCA and a stent to the left circumflex arteries. She is also known to have severe ischemic cardiomyopathy with an ejection fraction of 25%. There is also mild to moderate aortic regurgitation. She has had an AICD implanted. Patient is currently resting in bed, in a Semi-Barriga's position. She is lethargic, but will wake up to questioning. Oriented to self and place. She is on 2 L/min nasal cannula. SpO2 is 94%. Due to patient's lethargy and history of COPD, I did order an ABG which shows a PaO2 of 73, pCO2 of 56, pH of 7.39. Likely component of chronic hypercapnic respiratory failure. Earlier, blood pressure was noted to be hypotensive. Patient was fluid resuscitated with a total of 1.5 L normal saline bolus while in the ED. Current blood pressure reading 111/57 mmhg, heart rate 74. Overall hemodynamics are stable. On 01/26/2024, the patient is being seen for a follow-up. Less short of breath compared to yesterday and the patient is producing adequate amount of urine output. Remains on Lasix 40 g IV every 12 hours. Negative fluid balance of at least 2.6 L over the past 24 hours. No shortness of breath at rest. Remains on oxygen 2 L minute nasal cannula. Once again 11 with a hemoglobin 11.7 and a platelet count of 228. BUN 37 with a creatinine of 1 and a sodium levels at 134. The patient is afebrile. The patient is currently back on Entresto in combination with metoprolol and Imdur 30 mg p.o. daily. On 01/27/2024, no new complaints. The patient remains on Bumex 1 mg p.o. twice a day and Aldactone. The patient also on Entresto and metoprolol 12.5 mg twice a day. Remains on aspirin. Remains on anticoagulation with Eliquis. No new complaints. Fluid balance is negative. The patient has been in negative fluid balance of 1 L over the past 24 hours. Oxygenation is stable and the patient remains on 3 Suboxone by nasal cannula. BUN 33 with a creatinine of 0.7. White cell count is at 9.3. Objective - Vital Signs Vital signs: Vital Signs Temp 97.8 F 01/27/24 08:00 Pulse 70 01/27/24 09:29 Resp 18 01/27/24 09:29 BP 105/57 01/27/24 08:00 Pulse Ox 95 01/27/24 09:19 FiO2 Intake & Output 01/26/24 01/27/24 01/27/24 18:59 06:59 18:59 Intake Total 1020 118 Output Total 1450 600 Balance -430 -600 118 Weight 104.3 kg Intake: Oral 1020 118 Output: Urine 1450 600 Other: Voiding Method Bedside Commode Bedside Commode Bedside Commode Diaper # Voids 1 - Exam GENERAL EXAM: Lethargic, awakens and responds to verbal questioning but then quickly falls back to sleep when not stimulated, 48-year-old morbidly obese female, diaphoretic, fairly comfortable in no apparent distress. HEAD: Normocephalic and atraumatic EYES: Normal reaction of pupils, equal size. NOSE: Clear with pink turbinates. THROAT: No erythema or exudates. NECK: No masses, no JVD. CHEST: No chest wall deformity. LUNGS: Equal air entry with markedly diminished lung sounds bilaterally. No crackles, wheeze, rhonchi or dullness. On 2 L/min nasal cannula. No conversational dyspnea or accessory muscle use.. CVS: S1 and S2 normal with no audible murmur, regular rhythm. No extra heart sounds ABDOMEN: Obese abdomen, active bowel sounds, no appreciable masses or hepatosplenomegaly, no guarding or rigidity. SPINE: No scoliosis or deformity SKIN: No rashes CENTRAL NERVOUS SYSTEM: No focal deficits, tone is normal in all 4 extremities. EXTREMITIES: There bilateral lower extremity edema. Clubbing, or cyanosis. Pe ripheral pulses are intact. - Labs CBC & Chem 7: 01/27/24 07:49 01/27/24 07:49 Labs: Abnormal Lab Results - Last 24 Hours (Table) 01/26/24 01/26/24 01/26/24 Range/Units 09:32 09:32 16:57 WBC 11.6 H (3.8-10.6) k/uL RBC 3.75 L (3.80-5.40) m/uL Hgb (11.4-16.0) gm/dL Neutrophils # 9.9 H (1.3-7.7) k/uL Lymphocytes # 0.8 L (1.0-4.8) k/uL Sodium 134 L (137-145) mmol/L Chloride 93 L (98-107) mmol/L Carbon Dioxide 35 H (22-30) mmol/L BUN 37 H (7-17) mg/dL Glucose 181 H (74-99) mg/dL POC Glucose (mg/dL) 201 H (70-110) mg/dL Magnesium (1.6-2.3) mg/dL AST (14-36) U/L ALT 38 H (4-34) U/L Total Protein (6.3-8.2) g/dL TSH (0.465-4.680) mIU/L 01/26/24 01/27/24 01/27/24 Range/Units 19:45 07:49 07:49 WBC (3.8-10.6) k/uL RBC 3.58 L (3.80-5.40) m/uL Hgb 11.2 L (11.4-16.0) gm/dL Neutrophils # (1.3-7.7) k/uL Lymphocytes # (1.0-4.8) k/uL Sodium (137-145) mmol/L Chloride (98-107) mmol/L Carbon Dioxide 34 H (22-30) mmol/L BUN 33 H (7-17) mg/dL Glucose 113 H (74-99) mg/dL POC Glucose (mg/dL) 232 H (70-110) mg/dL Magnesium 2.4 H (1.6-2.3) mg/dL AST 40 H (14-36) U/L ALT 54 H (4-34) U/L Total Protein 6.0 L (6.3-8.2) g/dL TSH 6.620 H (0.465-4.680) mIU/L Assessment and Plan Assessment: Acute hypoxemic respiratory failure, currently on 2 L/min nasal cannula, possibly secondary to acute COPD exacerbation, chest x-ray demonstrates stable cardiomegaly, diminished lung volumes, no focal airspace consolidation. No pleural effusions or pneumothoraces. NT proBNP only 499. Negative for influenza, RSV, COVID. . Stable on 2 L of oxygen by nasal cannula. Acute decompensated CHF with systolic heart failure, improving and the patient responded to diuresis Chronic hypercapnic respiratory failure Chronic obstructive pulmonary disease Altered mental status, under investigation Acute kidney injury, recovered Hyperkalemia, secondary to above, treated with K cocktail including 10 units regular insulin, 1 amp D50 W, 1 amp sodium bicarbonate, 1 g calcium gluconate, 10 g of Lokelma Hypotension, improved after fluid resuscitation History of ischemic cardiomyopathy, with ejection fraction of 25%, status post AICD implantation Coronary artery disease, with history of previous multiple PCI/stenting History of hyperlipidemia Chronic pain, with implanted pain pump Recent former tobacco smoker, reportedly quit 2 weeks ago, prior to this was a very heavy tobacco smoker, smoking over 3 to 4 packs/day Morbid obesity, with a BMI of 45.9 kg/m Plan: Titrate oxygen flow to maintain saturation above 90%, currently on 2 L Continue Bumex and Aldactone. Continue Entresto 1 tablet a day Metoprolol 12.5 mg p.o. twice a day Chronically fluid balance and urine output and the fluid balance is negative Chest x-ray does not show any focal infiltrates or evidence of pneumonia. Chest CTA was technically nondiagnostic study due to poor contrast timing. No obvious central/saddle thrombus Patient reportedly aggressively diuresed on outpatient basis, hypotension is improved with judicious fluid resuscitation Most recent available echocardiogram from April, demonstrates a severely reduced left ventricular ejection fraction of 25% along with mild to moderate aortic regurgitation. Cardiology was asked to evaluate this patient as well. Potassium level is improved Continue bronchodilators Continue prednisone burst taper Continue to follow
--- NOTE | 2024-01-27 12:16 | P.PN ---
Subjective patient is seen for follow-up for acute kidney injury. Shortness of breath has improved. Maintained on IV Lasix. Serum creatinine 0.7 mg/dL. no significant complaints today. Objective - Vital Signs Vital signs: Vital Signs Temp 97.8 F 01/27/24 08:00 Pulse 70 01/27/24 11:52 Resp 18 01/27/24 11:52 BP 101/56 01/27/24 10:52 Pulse Ox 96 01/27/24 10:52 FiO2 Intake & Output 01/26/24 01/27/24 01/27/24 18:59 06:59 18:59 Intake Total 1020 358 Output Total 0723 876 8673 Balance -430 600 -642 Weight 104.3 kg Intake: Oral 1020 358 Output: Urine 3789 026 6842 Other: Voiding Method Bedside Commode Bedside Commode Bedside Commode Diaper # Voids 1 - Exam patient is awake, comfortable, no acute distress. Examination of the heart S1 and S2 Examination of the lungs bilateral breath sounds are heard Abdomen is soft nontender Examination of lower extremities shows edema 1+ bilaterally. 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 - Labs CBC & Chem 7: 01/27/24 07:49 01/27/24 07:49 Labs: Abnormal Lab Results - Last 24 Hours (Table) 01/26/24 01/26/24 01/27/24 Range/Units 16:57 19:45 07:49 RBC 3.58 L (3.80-5.40) m/uL Hgb 11.2 L (11.4-16.0) gm/dL Carbon Dioxide (22-30) mmol/L BUN (7-17) mg/dL Glucose (74-99) mg/dL POC Glucose (mg/dL) 201 H 232 H (70-110) mg/dL Magnesium (1.6-2.3) mg/dL AST (14-36) U/L ALT (4-34) U/L Total Protein (6.3-8.2) g/dL TSH (0.465-4.680) mIU/L Free T4 (0.78-2.19) ng/dL 01/27/24 Range/Units 07:49 RBC (3.80-5.40) m/uL Hgb (11.4-16.0) gm/dL Carbon Dioxide 34 H (22-30) mmol/L BUN 33 H (7-17) mg/dL Glucose 113 H (74-99) mg/dL POC Glucose (mg/dL) (70-110) mg/dL Magnesium 2.4 H (1.6-2.3) mg/dL AST 40 H (14-36) U/L ALT 54 H (4-34) U/L Total Protein 6.0 L (6.3-8.2) g/dL TSH 6.620 H (0.465-4.680) mIU/L Free T4 0.58 L (0.78-2.19) ng/dL Assessment and Plan Assessment: 1. Non-oliguric HERLINDA likely cardiorenal syndrome. Baseline creatinine 0.7-1.0 mg/dL presented at 1.3, now resolved at 1.0. Renal US no hydronephrosis. 2. Acute Exacerbation CHF with fluid overload. CHF with decreased ejection fraction. 3. HTN 4. Hypoxic respiratory failure, likely combination COPD and CHF 5. Hyperkalemia related to HERLINDA and Entresto use-Resolved 6. Cardiomyopathy with EF of 20-25%. Plan: continue with diuretics. Continue with Entresto and Aldactone Monitor potassium.
--- NOTE | 2024-01-27 14:20 | P.PN ---
Subjective Progress Note Date: 01/27/24 History of present illness: This is a 48-year-old female patient of Dr. Montoya with past medical history of coronary artery disease with prior triple-vessel stenting, ischemic cardio myopathy status post AICD, hypertension, dyslipidemia, morbid obesity, remote history of tobacco use, COPD, chronic hypoxic respiratory failure on home O2. We have been asked to evaluate the patient for CHF. 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 She states that her feet hurt so bad that she could not walk. Patient states that the swelling worsened over the past 4 days. She does admit to increased salt intake recently. Her Lasix was increased by Dr. Rodriguez last Monday to 80 mg twice daily without improvement. She continued to have edema. Regarding smoking, she states she quit 1 month ago but was previously a 2 to 3 pack/day smoker. Patient also gives history that she was in for hospital in [place] around 01/01 for strep pneumonia. Blood pressure 111/57, heart rate 82, pulse ox 94% on 2 L nasal cannula, afebrile. EKG: Sinus rhythm with no acute ST-T wave changes Chest x-ray: Stable cardiomegaly. Slightly diminished lung volumes. No evidence of CHF. No pleural effusion or pneumothorax. CTA of the chest nondiagnostic for evaluation of PE. No obvious thrombus. No definite focal airspace consolidation. Mild vascular congestion may be present. No pleural effusion or pneumothorax. Laboratory studies: Hemoglobin 11.4, WBC 6.4. D-dimer 0.61. Sodium 126, potassium 6.2 and repeat 5.9, BUN 56, creatinine 1.34. Magnesium 2.4. Troponin negative x 1. proBNP 499. Influenza A, influenza B, RSV, COVID-19 not detected. Home cardiac medications according to office visit on 01/17/2024: Aldactone 25 mg twice daily, aspirin 81 mg daily, Entresto 49 mg - 51 mg 1 twice daily, Zetia 10 mg daily, Imdur 30 mg daily, Lasix 60 mg 2 times daily, Lipitor 80 mg daily, metoprolol tartrate 12.5 mg twice daily, Nitrostat as needed. Echocardiogram performed on 04/24/2023 reveals EF of 25%, mild to moderate aortic regurgitation. Cardiac catheterization history: May 2020 revealing intermediate restenosis involving the RCA and LAD. Patent stent in the left circumflex. Medical management was recommended. Lexiscan Cardiolite stress test performed on 11/08/2022 revealed large anterior scar 01/25 Patient states that her breathing is a little bit better today. Lower extremity edema is back to her normal baseline. Kidney function is also improved. Aldactone, Entresto and home Lasix dose were on hold. Patient has been on IV Lasix 40 mg every 12 hours. Echocardiogram reveals EF of 20 to 25%, dilated left ventricle with segmental wall motion abnormalities consistent with CAD. Possible apical thrombus. Mild to moderate mitral with mild tricuspid regurgitation and mild pulmonary hypertension. Moderate aortic regurgitation. Blood pressure 117/56, heart rate 60s and 70s, pulse ox 95% on 2 L nasal cannula. Repeat blood work reveals WBC 11.6, hemoglobin 11.5. Potassium 3.5, sodium 134, BUN 37 creatinine 1.03. 01/27/2024 Patient's echocardiogram showed apical thrombus. There has been no signs of stroke or systemic embolization at this time. Patient is on nasal oxygen at 2 to 3 L. This is what she is at home. She denies any chest pain chest pressure. She reports that her swelling and congestion appears to be at baseline at present. Physical examination: Gen: This is a morbidly obese 48-year-old female in no acute distress VS: reviewed HEENT: Head is atraumatic, normocephalic. Pupils equal, round. Sclerae is anicteric. NECK: Supple. No JVD. LUNGS: Mild crackles bilaterally. No intercostal retractions. HEART: Regular rate and rhythm. Soft systolic murmur. ABDOMEN: Soft No tenderness. EXTREMITIES: 1+ bilateral lower extremity edema. No calf tenderness. NEUROLOGICAL: Patient is awake, alert and oriented x3. Assessment: Apical thrombus on echocardiogram Acute on chronic systolic heart failure Acute kidney injury, resolved Hyperkalemia, resolved Hyponatremia, improving Coronary artery disease with prior triple-vessel stenting Ischemic cardiomyopathy status post AICD Hypertension Dyslipidemia Mild to moderate aortic regurgitation Morbid obesity with BMI of 45 History of tobacco use, patient quit 1 month ago COPD Chronic hypoxic respiratory failure on home oxygen Recent hospitalization in [place] for pneumonia Plan: Patient on Eliquis 5 mg twice daily. Patient is not willing to start warfarin because of frequent INR checks. Will use Eliquis for LV thrombus as off-label use Resume patient back on Entresto 24 mg - 26 mg 1 twice daily Continue Lopressor 12.5 mg twice daily, Imdur 30 mg daily Bumex 1 mg twice daily in the morning Resume Aldactone at 25 mg daily (patient was on 25 mg twice daily) Recommend addition of SGLT2 on outpatient basis Smoking cessation. Patient will be provided the [employer] quit line information at discharge. Anticipate possible discharge home tomorrow. Patient will follow-up in the office with Dr. Montoya in 1 weeks after discharge. Objective - Vital Signs Vital signs: Vital Signs Temp 97.8 F 01/27/24 08:00 Pulse 70 01/27/24 11:52 Resp 18 01/27/24 11:52 BP 101/56 01/27/24 10:52 Pulse Ox 96 01/27/24 10:52 FiO2 Intake & Output 01/26/24 01/27/24 01/27/24 18:59 06:59 18:59 Intake Total 1020 358 Output Total 3935 414 4988 Balance -430 600 -642 Weight 104.3 kg Intake: Oral 1020 358 Output: Urine 8372 280 3116 Other: Voiding Method Bedside Commode Bedside Commode Bedside Commode Diaper # Voids 1 - Labs CBC & Chem 7: 01/27/24 07:49 01/27/24 07:49 Labs: Abnormal Lab Results - Last 24 Hours (Table) 01/26/24 01/26/24 01/27/24 Range/Units 16:57 19:45 07:49 RBC 3.58 L (3.80-5.40) m/uL Hgb 11.2 L (11.4-16.0) gm/dL Carbon Dioxide (22-30) mmol/L BUN (7-17) mg/dL Glucose (74-99) mg/dL POC Glucose (mg/dL) 201 H 232 H (70-110) mg/dL Magnesium (1.6-2.3) mg/dL AST (14-36) U/L ALT (4-34) U/L Total Protein (6.3-8.2) g/dL TSH (0.465-4.680) mIU/L Free T4 (0.78-2.19) ng/dL 01/27/24 Range/Units 07:49 RBC (3.80-5.40) m/uL Hgb (11.4-16.0) gm/dL Carbon Dioxide 34 H (22-30) mmol/L BUN 33 H (7-17) mg/dL Glucose 113 H (74-99) mg/dL POC Glucose (mg/dL) (70-110) mg/dL Magnesium 2.4 H (1.6-2.3) mg/dL AST 40 H (14-36) U/L ALT 54 H (4-34) U/L Total Protein 6.0 L (6.3-8.2) g/dL TSH 6.620 H (0.465-4.680) mIU/L Free T4 0.58 L (0.78-2.19) ng/dL
--- NOTE | 2024-01-27 14:54 | P.DS ---
Providers Date of admission: 01/25/24 03:50 Expected date of discharge: 01/27/24 Attending physician: Ga Hooper Consults: 01/25/24 03:19 Consult Physician Routine Consulting Provider: Jaime Edward Consult Reason/Comments: copd, dyspnea. spoke with summer Do you want consulting provider notified?: Yes Consult Physician Routine Consulting Provider: [facility] Consult Reason/Comments: chf Do you want consulting provider notified?: Yes 01/25/24 03:36 Consult Physician Routine Consulting Provider: Jaxson Russell Consult Reason/Comments: Hyperkalemia Do you want consulting provider notified?: Yes 01/25/24 10:31 Consult Physician Routine Consulting Provider: Christy Elliott Consult Reason/Comments: luzma Do you want consulting provider notified?: Yes Primary care physician: Brenden Rodriguez - Discharge Diagnosis(es) (1) Acute on chronic systolic (congestive) heart failure Current Visit: No Status: Acute (2) LUZMA (acute kidney injury) Current Visit: Yes Status: Acute (3) COPD (chronic obstructive pulmonary disease) Current Visit: Yes Status: Acute (4) Dehydration Current Visit: Yes Status: Acute (5) Hyperkalemia Current Visit: Yes Status: Acute (6) Hypotension Current Visit: Yes Status: Acute (7) CAD (coronary artery disease) Current Visit: No Status: Acute (8) Ischemic cardiomyopathy Current Visit: No Status: Acute (9) Leukocytosis Current Visit: No Status: Acute (10) Mixed hyperlipidemia Current Visit: No Status: Acute (11) Apical mural thrombus Current Visit: Yes Status: Acute Hospital Course: Sahara is a 48-year-old female well-known to the practice. She has multiple medical problems including chronic hypoxic respiratory failure, coronary disease, AICD, COPD, longstanding smoking history, and pain pump. She was recently admitted to hospital in [place] after visiting her family for acute exacerbation of CHF. I had seen her in the office for posthospital follow-up and weight increased her Lasix slightly. She said since seeing me though she continued to worsen with swelling lower extremities and became more short of breath and fatigued. She is now admitted with acute exacerbation of CHF along with edema. She has some mild acute renal failure noted as well. Overall she is improved. Vital signs show a normal temperature heart rate blood pressure. She is on 2 L of O2 via nasal cannula. Labs today show a slight white count 11.6, kidneys are overall improved. Hyperkalemia is resolved. GFR went from 47 and now 65. Cardiology and nephrology have seen her. 01/27/2024: Patient was seen evaluated. He is being followed by nephrology, pulmonology, cardiology. Cardiology did find an apical thrombus on echo. They feel she is at her baseline and can be discharged home on Eliquis at this time. Her labs have remained stable. She feels much better and has less swelling with the switch from Lasix to Bumex. She will follow-up in the office in the next several days. Patient Condition at Discharge: Serious Plan - Discharge Summary Discharge Rx Participant: No New Discharge Prescriptions: New Bumetanide [BUMEX] 1 mg PO BID@0900,1600 #60 tab predniSONE [Deltasone] 40 mg PO DAILY tab Apixaban [Eliquis] 5 mg PO BID #60 tab Ipratropium-Albuterol Nebulize [Duoneb 0.5 mg-3 mg/3 ml Soln] 3 ml INHALATION RT-QID each Continue Omeprazole [PriLOSEC] 40 mg PO DAILY@0700 Atorvastatin [Lipitor] 80 mg PO DAILY@1900 Divalproex ER [Depakote ER] 1,000 mg PO DAILY@1200 Alendronate Sodium 70 mg PO COHEN@0700 Metoprolol Tartrate [Lopressor] 12.5 mg PO BID@1200,1900 Spironolactone [Aldactone] 25 mg PO BID@1000,1600 Isosorbide Mononitrate [Isosorbide Mononitrate ER] 30 mg PO DAILY@1000 Escitalopram [Lexapro] 20 mg PO DAILY@1900 Gabapentin [Neurontin] 900 mg PO TID@1000,1600,2200 Sacubitril/Valsartan [Entresto 24 mg-26 mg Tablet] 1 tab PO BID@1000,1600 Ezetimibe [Zetia] 10 mg PO DAILY@1000 Patient Own Pump 0 bag Albuterol Sulfate [Ventolin HFA] 2 puff INHALATION RT-Q6H PRN PRN Reason: Shortness Of Breath Aspirin EC [Ecotrin Low Dose] 81 mg PO DAILY@1600 traZODone HCL [Desyrel] 25 mg PO HS@2200 ALPRAZolam [Xanax] 0.25 mg PO BID PRN PRN Reason: Anxiety oxyCODONE-APAP 5-325MG [Percocet 5-325 mg] 1 tab PO BID PRN PRN Reason: Pain Fluticasone/Umeclidin/Vilanter [Trelegy Ellipta 200-62.5-25] 1 puff INHALATION RT-DAILY Discontinued Furosemide [Lasix] 80 mg PO BID@0700,1200 Discharge Medication List Omeprazole [PriLOSEC] 40 mg PO DAILY@0700 11/29/16 [History] Atorvastatin [Lipitor] 80 mg PO DAILY@19011/30/16 [History] Divalproex ER [Depakote ER] 1,000 mg PO DAILY@1200 02/06/17 [History] Alendronate Sodium 70 mg PO COHEN@0706/29/17 [History] Metoprolol Tartrate [Lopressor] 12.5 mg PO BID@1200,1900 09/25/19 [History] Isosorbide Mononitrate [Isosorbide Mononitrate ER] 30 mg PO DAILY@1000 11/19/19 [History] Spironolactone [Aldactone] 25 mg PO BID@1000,1600 11/19/19 [History] Escitalopram [Lexapro] 20 mg PO DAILY@189904/27/20 [History] ALPRAZolam [Xanax] 0.25 mg PO BID PRN 02/12/23 [History] Aspirin EC [Ecotrin Low Dose] 81 mg PO DAILY@1600 02/12/23 [History] Gabapentin [Neurontin] 900 mg PO TID@1000,1600,219902/12/23 [History] Sacubitril/Valsartan [Entresto 24 mg-26 mg Tablet] 1 tab PO BID@1000,1600 02/12/23 [History] traZODone HCL [Desyrel] 25 mg PO HS@219902/12/23 [History] Ezetimibe [Zetia] 10 mg PO DAILY@1000 04/23/23 [History] Albuterol Sulfate [Ventolin HFA] 2 puff INHALATION RT-Q6H PRN 01/25/24 [History] Fluticasone/Umeclidin/Vilanter [Trelegy Ellipta 200-62.5-25] 1 puff INHALATION RT-DAILY 01/25/24 [History] Patient Own Pump 0 bag 01/25/24 [History] oxyCODONE-APAP 5-325MG [Percocet 5-325 mg] 1 tab PO BID PRN 01/25/24 [History] Apixaban [Eliquis] 5 mg PO BID #60 tab 01/27/24 [Rx] Bumetanide [BUMEX] 1 mg PO BID@0900,1600 #60 tab 01/27/24 [Rx] Ipratropium-Albuterol Nebulize [Duoneb 0.5 mg-3 mg/3 ml Soln] 3 ml INHALATION RT-QID each 01/27/24 [Rx] predniSONE [Deltasone] 40 mg PO DAILY tab 01/27/24 [Rx] Follow up Appointment(s)/Referral(s): John Montoya MD [STAFF PHYSICIAN] - 1 Week Brenden Rodriguez MD [Primary Care Provider] - 1-2 days Discharge Disposition: HOME SELF-CARE
[2024-01-27 14:57] VITALS: BP 113/67
[2024-01-27 15:14] VITALS: PULSE 70
== END 2024-01-27 16:04 | disposition home or self-care (01) | DRG 291 ==
LOC: EC → 3SCARD 03:50
PROVIDERS: ADMIT Family Medicine; ATTEND Family Medicine
DX: I13.0 Hypertensive heart and chronic kidney disease with heart failure and stage 1 through stage 4 chronic kidney disease, or unspecified chronic kidney disease (principal); I50.23 Acute on chronic systolic (congestive) heart failure; J96.21 Acute and chronic respiratory failure with hypoxia; J96.22 Acute and chronic respiratory failure with hypercapnia; E87.1 Hypo-osmolality and hyponatremia; N17.9 Acute kidney failure, unspecified; Z68.42 Body mass index [BMI] 45.0-49.9, adult; J44.1 Chronic obstructive pulmonary disease with (acute) exacerbation; E11.22 Type 2 diabetes mellitus with diabetic chronic kidney disease; I25.5 Ischemic cardiomyopathy; I35.1 Nonrheumatic aortic (valve) insufficiency; E78.2 Mixed hyperlipidemia; J44.9 Chronic obstructive pulmonary disease, unspecified; D63.1 Anemia in chronic kidney disease; N18.9 Chronic kidney disease, unspecified; E86.0 Dehydration; F17.210 Nicotine dependence, cigarettes, uncomplicated; F31.9 Bipolar disorder, unspecified; G89.29 Other chronic pain; F41.9 Anxiety disorder, unspecified; I51.3 Intracardiac thrombosis, not elsewhere classified; M79.7 Fibromyalgia; M51.36 Other intervertebral disc degeneration, lumbar region; E87.8 Other disorders of electrolyte and fluid balance, not elsewhere classified; E87.5 Hyperkalemia; E66.01 Morbid (severe) obesity due to excess calories; M81.0 Age-related osteoporosis without current pathological fracture; I25.10 Atherosclerotic heart disease of native coronary artery without angina pectoris; Z96.89 Presence of other specified functional implants; Z95.810 Presence of automatic (implantable) cardiac defibrillator; Z99.81 Dependence on supplemental oxygen; Z79.891 Long term (current) use of opiate analgesic; I25.2 Old myocardial infarction; Z79.01 Long term (current) use of anticoagulants; Z79.82 Long term (current) use of aspirin; Z79.899 Other long term (current) drug therapy; Z95.5 Presence of coronary angioplasty implant and graft
CPT/HCPCS: 36415; 36600; 71046; 71275; 76770; 80053; 80306; 81003; 82805; 83735; 83880; 84132; 84439; 84443; 84484; 85025; 85379; 85610; 85730; 87636; 93005; 93306; 94640; 94760; 96361; 96365; 96375; 99291

== ENCOUNTER 2024-02-15 18:56 | Inpatient (IN) | payer MEDICARE ==
--- NOTE | 2024-02-15 19:32 | ED ---
SOB HPI - General Chief Complaint: Shortness of Breath Stated Complaint: high blood pressure Time Seen by Provider: 02/15/24 19:06 Source: patient, RN notes reviewed Mode of arrival: wheelchair Limitations: no limitations - History of Present Illness Initial Comments: 48-year-old female presents emergency department with chief complaint of weakness, shortness of breath. Patient states that she has COPD, CHF. Patient states she has been having increasing symptoms last few days. She has been in the hospital several times recently. She states she still has ongoing leg swelling, weight gain. Patient states she recently had her Bumex increased to 2 mg twice daily. Patient denies chest pain. Patient states she is on 2 L of oxygen chronically. Patient states it was low at home so she increased it to 3 L. - Related Data Home Medications Medication Instructions Recorded Confirmed Omeprazole [PriLOSEC] 40 mg PO DAILY@0700 11/29/16 02/15/24 Atorvastatin [Lipitor] 80 mg PO DAILY@1900 11/30/16 02/15/24 Divalproex ER [Depakote ER] 1,000 mg PO DAILY@1200 02/06/17 02/15/24 Alendronate Sodium 70 mg PO COHEN@0700 06/29/17 02/15/24 Metoprolol Tartrate [Lopressor] 12.5 mg PO BID@1200,1900 09/25/19 02/15/24 Isosorbide Mononitrate [Isosorbide 30 mg PO DAILY@1000 11/19/19 02/15/24 Mononitrate ER] Spironolactone [Aldactone] 25 mg PO BID@1000,1600 11/19/19 02/15/24 Escitalopram [Lexapro] 20 mg PO DAILY@1900 04/27/20 02/15/24 ALPRAZolam [Xanax] 0.25 mg PO BID PRN 02/12/23 02/15/24 Aspirin EC [Ecotrin Low Dose] 81 mg PO DAILY@1600 02/12/23 02/15/24 Gabapentin [Neurontin] 900 mg PO TID@1000,1600,2200 02/12/23 02/15/24 Sacubitril/Valsartan [Entresto 24 1 tab PO BID@1000,1600 02/12/23 02/15/24 mg-26 mg Tablet] traZODone HCL [Desyrel] 25 mg PO HS@2200 02/12/23 02/15/24 Ezetimibe [Zetia] 10 mg PO DAILY@1000 04/23/23 02/15/24 Albuterol Sulfate [Ventolin HFA] 2 puff INHALATION RT-Q6H PRN 01/25/24 02/15/24 Fluticasone/Umeclidin/Vilanter 1 puff INHALATION RT-DAILY 01/25/24 02/15/24 [Trelegy Ellipta 200-62.5-25] Patient Own Pump 0 bag 01/25/24 oxyCODONE-APAP 5-325MG [Percocet 1 tab PO BID PRN 01/25/24 02/15/24 5-325 mg] Bumetanide [BUMEX] 2 mg PO BID@0900,1600 02/15/24 02/15/24 metOLazone [Zaroxolyn] 2.5 mg PO Q48H 02/15/24 02/15/24 Previous Rx's Medication Instructions Recorded Apixaban [Eliquis] 5 mg PO BID #60 tab 01/27/24 Ipratropium-Albuterol Nebulize 3 ml INHALATION RT-QID each 01/27/24 [Duoneb 0.5 mg-3 mg/3 ml Soln] Allergies Allergy/AdvReac Type Severity Reaction Status Date / Time moxifloxacin HCl Allergy Rash/Hives Verified 02/15/24 19:58 [From Avelox] Review of Systems ROS Statement: Those systems with pertinent positive or pertinent negative responses have been documented in the HPI. ROS Other: All systems not noted in ROS Statement are negative. Past Medical History Past Medical History: Asthma, Coronary Artery Disease (CAD), Chest Pain / Angina, Heart Failure, COPD, Fibromyalgia, GERD/Reflux, Hyperlipidemia, Myocardial Infarction (MD), Musculoskeletal Disorder, Osteoarthritis (OA), Pneumonia Additional Past Medical History / Comment(s): Has Pain Pump and AICD. Ishemic Cardiomyopathy. Hx MD X3 - 2004, 2012, 2017. Hx bronchitis. Chronic back pain, lumbar Degenerative Disc Disease, occasional neck pain, osteoporosis, migraines. Hx UTIs, kidney stones. Vertigo. Last Myocardial Infarction Date:: 2017 History of Any Multi-Drug Resistant Organisms: None Reported Past Surgical History: AICD, Heart Catheterization, Heart Catheterization With Stent, Orthopedic Surgery, Tubal Ligation Additional Past Surgical History / Comment(s): Multiple stents, left hand surgery, pain clinic procedures, Medtronic Pain Pump surgically implanted. Past Anesthesia/Blood Transfusion Reactions: No Reported Reaction, Motion Sickness Date of Last Stent Placement:: 08-13-16 Type of Cardiac Device: AICD Device Placement Date:: 2016 [employer]. Past Psychological History: Anxiety, Bipolar, Depression Smoking Status: Current every day smoker Past Alcohol Use History: Occasional Past Drug Use History: Marijuana - Past Family History Mother Family Medical History: Coronary Artery Disease (CAD), Fibromyalgia, Hyperlipidemia Additional Family Medical History / Comment(s): Emotional problems, bipolar. Father Family Medical History: CVA/TIA, Fibromyalgia, Hyperlipidemia, Hypertension, Musculoskeletal Disorder Additional Family Medical History / Comment(s): MS. Sister(s) History Unknown: Yes Family Medical History: Hyperlipidemia General Exam Limitations: no limitations General appearance: alert, in no apparent distress Head exam: Present: atraumatic, normocephalic, normal inspection Eye exam: Present: normal appearance, PERRL, EOMI. Absent: scleral icterus, conjunctival injection, periorbital swelling Respiratory exam: Present: decreased breath sounds. Absent: normal lung sounds bilaterally, respiratory distress, wheezes, rales, rhonchi, stridor Cardiovascular Exam: Present: regular rate, normal rhythm, normal heart sounds. Absent: systolic murmur, diastolic murmur, rubs, gallop, clicks Extremities exam: Present: pedal edema Neurological exam: Present: alert Skin exam: Present: warm, dry, intact, normal color. Absent: rash Course Vital Signs 02/15/24 02/15/24 02/15/24 19:13 19:23 19:50 Temperature 98.3 F Pulse Rate 74 78 77 Respiratory 20 20 18 Rate Blood Pressure 79/50 84/45 79/43 O2 Sat by Pulse 94 L 98 95 Oximetry 02/15/24 02/15/24 20:54 21:38 Temperature Pulse Rate 72 68 Respiratory 18 16 Rate Blood Pressure 84/57 83/52 O2 Sat by Pulse 94 L 96 Oximetry Medical Decision Making - Medical Decision Making Was pt. sent in by a medical professional or institution (, PA, SURGERY AID, urgent care, hospital, or shelter...) When possible be specific @ -No Did you speak to anyone other than the patient for history (EMS, parent, family, police, friend...)? What history was obtained from this source @ -No Did you review nursing and triage notes (agree or disagree)? Why? @ -I reviewed and agree with nursing and triage notes Were old charts reviewed (outside hosp., previous admission, EMS record, old EKG, old radiological studies, urgent care reports/EKG's, shelter records)? Report findings @ -No old charts were reviewed Differential Diagnosis (chest pain, altered mental status, abdominal pain women, abdominal pain men, vaginal bleeding, weakness, fever, dyspnea, syncope, headache, dizziness, GI bleed, back pain, seizure, CVA, palpatations, mental health, musculoskeletal)? @ -Differential Weakness: Hypoglycemia, shock, sepsis, hyponatremia, anemia, infection, MD, ETOH, adverse medicine reaction, overdose, stroke, this is not meant to be an all-inclusive list. EKG interpreted by me (3pts min.). @ -As above X-rays interpreted by me (1pt min.). @Chest s x-ray shows mild pulm edema, cardiomegaly no effusion CT interpreted by me (1pt min.). @ -None done U/S interpreted by me (1pt. min.). @ -None done What testing was considered but not performed or refused? (CT, X-rays, U/S, labs)? Why? @ -None What meds were considered but not given or refused? Why? @ -None Did you discuss the management of the patient with other professionals (professionals i.e. , PA, SURGERY AID, lab, RT, psych nurse, social media coordinator, weight caller, teacher, commercial loan officer, pillowcase cleaner)? Give summary @ -Dr. Hooper for admission Was smoking cessation discussed for >3mins.? @ -No Was critical care preformed (if so, how long)? @ -No Were there social determinants of health that impacted care today? How? (Homelessness, low income, unemployed, alcoholism, drug addiction, transportation, low edu. Level, literacy, decrease access to med. care, alf, rehab)? @ -No Was there de-escalation of care discussed even if they declined (Discuss DNR or withdrawal of care, Hospice)? DNR status @ -No What co-morbidities impacted this encounter? (DM, HTN, Smoking, COPD, CAD, Cancer, CVA, ARF, Chemo, Hep., AIDS, mental health diagnosis, sleep apnea, morbid obesity)? @ -COPD CHF Was patient admitted / discharged? Hospital course, mention meds given and route, prescriptions, significant lab abnormalities, going to OR and other perti ne info. @ -Admitted patient presented for increasing weakness, shortness of breath. Patient found to have hyponatremia hypochloremia patient started on maintenance fluids, will have repeat laboratory studies in the morning, continuation of medications and close monitoring patient did have mild hypotension more likely from hypovolemia Undiagnosed new problem with uncertain prognosis? @ -No Drug Therapy requiring intensive monitoring for toxicity (Heparin, Nitro, Insulin, Cardizem)? @ -No Were any procedures done? @ -No Diagnosis/symptom? @ -Hyponatremia, hypochloremia Acute, or Chronic, or Acute on Chronic? @ -Acute Uncomplicated (without systemic symptoms) or Complicated (systemic symptoms)? @ -Complicated Side effects of treatment? @ -No Exacerbation, Progression, or Severe Exacerbation? @ -No Poses a threat to life or bodily function? How? (Chest pain, USA, MD, pneumonia, PE, COPD, DKA, ARF, appy, cholecystitis, CVA, Diverticulitis, Homicidal, Suicidal, threat to staff... and all critical care pts) @ -Yes hyponatremia - Lab Data Result diagrams: 02/15/24 19:50 02/15/24 19:50 Lab Results 02/15/24 02/15/24 02/15/24 Range/Units 19:50 19:50 19:50 WBC 7.6 (3.8-10.6) k/uL RBC 3.33 L (3.80-5.40) m/uL Hgb 10.6 L (11.4-16.0) gm/dL Hct 29.4 L (34.0-46.0) % MCV 88.2 D (80.0-100.0) fL MCH 31.9 (25.0-35.0) pg MCHC 36.2 (31.0-37.0) g/dL RDW 14.6 (11.5-15.5) % Plt Count 272 (150-450) k/uL MPV 7.5 Neutrophils % 58 % Lymphocytes % 21 % Monocytes % 11 % Eosinophils % 8 % Basophils % 0 % Neutrophils # 4.4 (1.3-7.7) k/uL Lymphocytes # 1.6 (1.0-4.8) k/uL Monocytes # 0.8 (0-1.0) k/uL Eosinophils # 0.6 (0-0.7) k/uL Basophils # 0.0 (0-0.2) k/uL PT 10.2 (10.0-12.5) sec INR 0.9 (<1.2) APTT 30.7 H (22.0-30.0) sec Sodium 117 L* (137-145) mmol/L Potassium 4.7 (3.5-5.1) mmol/L Chloride 74 L* (98-107) mmol/L Carbon Dioxide 33 H (22-30) mmol/L Anion Gap 10 mmol/L BUN 45 H (7-17) mg/dL Creatinine 1.24 H (0.52-1.04) mg/dL Est GFR (CKD-EPI)AfAm 59 (>60 ml/min/1.73 sqM) Est GFR (CKD-EPI)NonAf 52 (>60 ml/min/1.73 sqM) Glucose 122 H (74-99) mg/dL Plasma Lactic Acid Ramsey (0.7-2.0) mmol/L Calcium 8.8 (8.4-10.2) mg/dL Magnesium 2.0 (1.6-2.3) mg/dL Total Bilirubin 0.7 (0.2-1.3) mg/dL AST 30 (14-36) U/L ALT 19 (4-34) U/L Alkaline Phosphatase 98 (38-126) U/L Troponin I (0.000-0.034) ng/mL NT-Pro-B Natriuret Pep 669 pg/mL Total Protein 6.3 (6.3-8.2) g/dL Albumin 3.8 (3.5-5.0) g/dL 02/15/24 02/15/24 Range/Units 19:50 19:50 WBC (3.8-10.6) k/uL RBC (3.80-5.40) m/uL Hgb (11.4-16.0) gm/dL Hct (34.0-46.0) % MCV (80.0-100.0) fL MCH (25.0-35.0) pg MCHC (31.0-37.0) g/dL RDW (11.5-15.5) % Plt Count (150-450) k/uL MPV Neutrophils % % Lymphocytes % % Monocytes % % Eosinophils % % Basophils % % Neutrophils # (1.3-7.7) k/uL Lymphocytes # (1.0-4.8) k/uL Monocytes # (0-1.0) k/uL Eosinophils # (0-0.7) k/uL Basophils # (0-0.2) k/uL PT (10.0-12.5) sec INR (<1.2) APTT (22.0-30.0) sec Sodium (137-145) mmol/L Potassium (3.5-5.1) mmol/L Chloride (98-107) mmol/L Carbon Dioxide (22-30) mmol/L Anion Gap mmol/L BUN (7-17) mg/dL Creatinine (0.52-1.04) mg/dL Est GFR (CKD-EPI)AfAm (>60 ml/min/1.73 sqM) Est GFR (CKD-EPI)NonAf (>60 ml/min/1.73 sqM) Glucose (74-99) mg/dL Plasma Lactic Acid Ramsey 1.3 (0.7-2.0) mmol/L Calcium (8.4-10.2) mg/dL Magnesium (1.6-2.3) mg/dL Total Bilirubin (0.2-1.3) mg/dL AST (14-36) U/L ALT (4-34) U/L Alkaline Phosphatase (38-126) U/L Troponin I <0.012 (0.000-0.034) ng/mL NT-Pro-B Natriuret Pep pg/mL Total Protein (6.3-8.2) g/dL Albumin (3.5-5.0) g/dL - EKG Data -: EKG Interpreted by Me EKG Comments: EKG performed at 19: 26 sinus rhythm rhythm rate of 72 NV 198 QRS 126 QT/QTc 417/441 Disposition Clinical Impression: Hyponatremia, Hypochloremia, COPD (chronic obstructive pulmonary disease) Disposition: ADMITTED IP TO THIS HOSP Condition: Poor Is patient prescribed a controlled substance at d/c from ED?: No Referrals: Brenden Rodriguez MD [Primary Care Provider] - 1-2 days Time of Disposition: 21:20
[2024-02-15] MEDS: methylPREDNISolone SOD SUCCI 125 MG/2 ML VIAL IV STA (20:23)
[2024-02-15] MEDS: SODIUM CHLORIDE 0.9% 500 ML 500 ML IV ONE ×2 (20:23→23:03)
--- NOTE | 2024-02-15 20:28 | XR ---
EXAMINATION TYPE: XR chest 2V DATE OF EXAM: 02/15/2024 8:01 PM CLINICAL INDICATION:Female, 48 years old with history of difficulty breathing; [facility] COMPARISON: Chest radiographs on 11/11/2023 TECHNIQUE: XR chest 2V Frontal view of the chest. FINDINGS: Lungs/Pleura: There is no evidence of pneumothorax. Pulmonary vascularity: Mild pulmonary vascular congestion. Heart/mediastinum: Cardiomediastinal silhouette is enlarged but stable. Two lead cardiac conduction d evice overlying the left hemithorax with lead tips projecting over the right ventricle and right atri um. Musculoskeletal: No acute osseous pathology. Other findings: None IMPRESSION: Redemonstrated cardiomegaly and mild pulmonary vascular congestion. Correlate for congestive heart fa ilure.
[2024-02-15 20:29] LABS: INR 0.9 (<1.2); Partial Thromboplastin Time 30.7 sec (22.0-30.0); Prothrombin Time 10.2 sec (10.0-12.5)
[2024-02-15 20:37] LABS: Basophils % (A) 0 %; Eosinophils # (A) 0.6 k/uL (0-0.7); Eosinophils % (A) 8 %; HCT 29.4 % (34.0-46.0); HGB 10.6 gm/dL (11.4-16.0); Lymphocytes # (A) 1.6 k/uL (1.0-4.8); Lymphocytes % (A) 21 %; MCH 31.9 pg (25.0-35.0); MCHC 36.2 g/dL (31.0-37.0); Mean Platelet Volume 7.5; Monocytes # (A) 0.8 k/uL (0-1.0); Monocytes % (A) 11 %; Neutrophils # (A) 4.4 k/uL (1.3-7.7); Neutrophils % (A) 58 %; Platelet Count 272 k/uL (150-450); RBC 3.33 m/uL (3.80-5.40); RDW 14.6 % (11.5-15.5); WBC 7.6 k/uL (3.8-10.6)
[2024-02-15 20:39] LABS: MCV 88.2 fL (80.0-100.0)
[2024-02-15 20:46] LABS: ALT 19 U/L (4-34); African American GFR (CKD) 59 (>60 ml/min/1.73 sqM); Albumin 3.8 g/dL (3.5-5.0); Anion Gap 10 mmol/L; Blood Urea Nitrogen 45 mg/dL (7-17); Calcium 8.8 mg/dL (8.4-10.2); Carbon Dioxide 33 mmol/L (22-30); Glucose 122 mg/dL (74-99); Non-African American GFR(CKD) 52 (>60 ml/min/1.73 sqM); Total Bilirubin 0.7 mg/dL (0.2-1.3); Total Protein 6.3 g/dL (6.3-8.2)
[2024-02-15 20:50] LABS: NT-Pro-B-Type Natriuretic Pept 669 pg/mL
[2024-02-15 20:54] LABS: Chloride 74 mmol/L (98-107); Potassium 4.7 mmol/L (3.5-5.1); Sodium 117 mmol/L (137-145)
[2024-02-15 20:55] LABS: AST 30 U/L (14-36); Alkaline Phosphatase 98 U/L (38-126)
[2024-02-15] MEDS: SODIUM CHLORIDE 0.9% 1,000 ML IV SCH (21:15)
[2024-02-15] MEDS ORDERED: NALOXONE 0.4 MG/ML 1 ML VIAL IV PRN (21:20)
[2024-02-15] MEDS ORDERED: ALPRAZolam 0.25 MG TAB PO PRN (21:21)
[2024-02-15] MEDS ORDERED: ALBUTEROL NEBULIZED 2.5 MG/3 ML INHALATION PRN (21:21)
[2024-02-15] MEDS: GABAPENTIN 300 MG CAP PO SCH (21:37)
[2024-02-15] MEDS: traZODone HCL 50 MG TAB PO SCH (22:10)
[2024-02-16] MEDS: PANTOPRAZOLE 40 MG TABLET PO SCH (06:05)
[2024-02-16] MEDS: EZETIMIBE 10 MG TAB PO SCH (08:56)
[2024-02-16] MEDS: SPIRONOLACTONE 25 MG TAB PO SCH (08:56)
[2024-02-16] MEDS: ISOSORBIDE MONONITRATE ER 30 MG TAB.ER.24H PO SCH (08:56)
[2024-02-16] MEDS: APIXABAN 5 MG TAB PO SCH (08:56)
[2024-02-16] MEDS: SACUBITRIL/VALSARTAN 24 MG-26 MG TABLET PO SCH (08:56)
[2024-02-16] MEDS: IPRATROPIUM-ALBUTEROL 3 ML NEB INHALATION SCH (09:21)
[2024-02-16 10:35] LABS: Basophils % (A) 0 %; Eosinophils % (A) 0 %; HGB 10.9 gm/dL (11.4-16.0); Lymphocytes # (A) 0.6 k/uL (1.0-4.8); Lymphocytes % (A) 6 %; MCH 31.1 pg (25.0-35.0); MCV 91.4 fL (80.0-100.0); Mean Platelet Volume 7.8; Monocytes # (A) 0.3 k/uL (0-1.0); Monocytes % (A) 3 %; Neutrophils # (A) 9.3 k/uL (1.3-7.7); Neutrophils % (A) 90 %; Platelet Count 356 k/uL (150-450); RDW 14.3 % (11.5-15.5); WBC 10.3 k/uL (3.8-10.6)
[2024-02-16] MEDS: DIVALPROEX ER 500 MG TAB.ER.24H PO SCH (11:50)
[2024-02-16 12:14] LABS: African American GFR (CKD) 80 (>60 ml/min/1.73 sqM); Anion Gap 6 mmol/L; Blood Urea Nitrogen 36 mg/dL (7-17); Calcium 9.9 mg/dL (8.4-10.2); Carbon Dioxide 36 mmol/L (22-30); Chloride 86 mmol/L (98-107); Glucose 155 mg/dL (74-99); Non-African American GFR(CKD) 70 (>60 ml/min/1.73 sqM); Potassium 4.5 mmol/L (3.5-5.1); Sodium 128 mmol/L (137-145)
--- NOTE | 2024-02-16 13:29 | P.NPCON ---
History of Present Illness - Reason for Consult hyponatremia - History of Present Illness Patient is a 48-year-old female with history of asthma, coronary artery disease, CHF and history of IA who was admitted to the hospital with complaints of increased swelling in her lower extremities and low blood pressure. Patient states her blood pressure was in the 80s systolic. She has a history of ischemic cardiomyopathy with EF of 20-25% on echocardiogram on 01/26/2024. patient is noted to have a serum sodium of 117 on admission. It looks like she was maintained on normal saline. Sodium this morning is 128. Patient denies complaints of shortness of breath although she states her legs are significantly swollen. Blood pressure is currently in the 90s to low 100 systolic. Diuretics are on hold. no complaints of nausea vomiting or diarrhea Review of Systems as per HPI Past Medical History Past Medical History: Asthma, Coronary Artery Disease (CAD), Chest Pain / Angina, Heart Failure, COPD, Fibromyalgia, GERD/Reflux, Hyperlipidemia, Myocardial Infarction (IA), Musculoskeletal Disorder, Osteoarthritis (OA), Pneumonia Additional Past Medical History / Comment(s): Has Pain Pump and AICD. Ishemic Cardiomyopathy. Hx IA X3 - 2004, 2012, 2017. Hx bronchitis. Chronic back pain, lumbar Degenerative Disc Disease, occasional neck pain, osteoporosis, migraines. Hx UTIs, kidney stones. Vertigo. Last Myocardial Infarction Date:: 2016 History of Any Multi-Drug Resistant Organisms: None Reported Past Surgical History: AICD, Heart Catheterization, Heart Catheterization With Stent, Orthopedic Surgery, Tubal Ligation Additional Past Surgical History / Comment(s): Multiple stents, left hand surgery, pain clinic procedures, Medtronic Pain Pump surgically implanted. Past Anesthesia/Blood Transfusion Reactions: No Reported Reaction, Motion Sickness Date of Last Stent Placement:: 08-13-16 Type of Cardiac Device: AICD Device Placement Date:: 2016 [employer]. Past Psychological History: Anxiety, Bipolar, Depression Smoking Status: Former smoker Past Alcohol Use History: Occasional Additional Past Alcohol Use History / Comment(s): Started smoking in 1988, about 1 ppd, quit 09/21/19, restarted in 2020 quit 2022. No longer drinks alcohol. Past Drug Use History: Marijuana Additional Drug Use History / Comment(s): Medical Marijuana use occasionally. - Past Family History Mother Family Medical History: Coronary Artery Disease (CAD), Fibromyalgia, Hyperlipidemia Additional Family Medical History / Comment(s): Emotional problems, bipolar. Father Family Medical History: CVA/TIA, Fibromyalgia, Hyperlipidemia, Hypertension, Musculoskeletal Disorder Additional Family Medical History / Comment(s): MS. Sister(s) History Unknown: Yes Family Medical History: Hyperlipidemia Medications and Allergies Home Medications Medication Instructions Recorded Confirmed Type Omeprazole [PriLOSEC] 40 mg PO DAILY@0700 11/29/16 02/15/24 History Atorvastatin [Lipitor] 80 mg PO DAILY@1900 11/30/16 02/15/24 History Divalproex ER [Depakote ER] 1,000 mg PO DAILY@1200 02/06/17 02/15/24 History Alendronate Sodium 70 mg PO COHEN@0700 06/29/17 02/15/24 History Metoprolol Tartrate [Lopressor] 12.5 mg PO BID@1200,1900 09/25/19 02/15/24 History Isosorbide Mononitrate [Isosorbide 30 mg PO DAILY@1000 11/19/19 02/15/24 History Mononitrate ER] Spironolactone [Aldactone] 25 mg PO BID@1000,1600 11/19/19 02/15/24 History Escitalopram [Lexapro] 20 mg PO DAILY@1900 04/27/20 02/15/24 History ALPRAZolam [Xanax] 0.25 mg PO BID PRN 02/12/23 02/15/24 History Aspirin EC [Ecotrin Low Dose] 81 mg PO DAILY@1600 02/12/23 02/15/24 History Gabapentin [Neurontin] 900 mg PO TID@1000,1600,219902/12/23 02/15/24 History Sacubitril/Valsartan [Entresto 24 1 tab PO BID@1000,1600 02/12/23 02/15/24 History mg-26 mg Tablet] traZODone HCL [Desyrel] 25 mg PO HS@219902/12/23 02/15/24 History Ezetimibe [Zetia] 10 mg PO DAILY@1000 04/23/23 02/15/24 History Albuterol Sulfate [Ventolin HFA] 2 puff INHALATION RT-Q6H PRN 01/25/24 02/15/24 History Fluticasone/Umeclidin/Vilanter 1 puff INHALATION RT-DAILY 01/25/24 02/15/24 History [Trelegy Ellipta 200-62.5-25] Patient Own Pump 0 bag 01/25/24 History oxyCODONE-APAP 5-325MG [Percocet 1 tab PO BID PRN 01/25/24 02/15/24 History 5-325 mg] Apixaban [Eliquis] 5 mg PO BID #60 tab 01/27/24 02/15/24 Rx Ipratropium-Albuterol Nebulize 3 ml INHALATION RT-QID each 01/27/24 02/15/24 Rx [Duoneb 0.5 mg-3 mg/3 ml Soln] Bumetanide [BUMEX] 2 mg PO BID@0900,1600 02/15/24 02/15/24 History metOLazone [Zaroxolyn] 2.5 mg PO Q48H 02/15/24 02/15/24 History Allergies Allergy/AdvReac Type Severity Reaction Status Date / Time moxifloxacin HCl Allergy Rash/Hives Verified 02/15/24 19:58 [From Avelox] Physical Exam Vitals: Vital Signs Temp Pulse Pulse Resp BP BP Pulse Ox 02/16/24 12:00 97.5 F L 65 18 94/61 93 L 02/16/24 11:57 66 16 02/16/24 11:50 66 14 02/16/24 09:29 65 16 02/16/24 09:21 63 16 93 L 02/16/24 08:00 97.4 F L 74 16 111/70 93 L 02/16/24 03:45 71 18 114/70 95 02/15/24 23:20 97.3 F L 67 18 91/52 94 L 02/15/24 22:27 70 16 106/74 95 02/15/24 22:12 72 18 102/63 96 02/15/24 21:38 68 16 83/52 96 02/15/24 20:54 72 18 84/57 94 L 02/15/24 19:50 77 18 79/43 95 02/15/24 19:23 78 20 84/45 98 02/15/24 19:13 98.3 F 74 20 79/50 94 L Intake and Output 02/15/24 02/16/24 02/16/24 22:59 06:59 14:59 Other: Voiding Method Toilet Toilet # Voids 1 Weight 104.326 kg 106.2 kg Results - Lab Results Most recent lab results Calcium 9.9 mg/dL (8.4-10.2) 02/16/24 10:16 Magnesium 2.0 mg/dL (1.6-2.3) 02/15/24 19:50 02/16/24 10:16 02/16/24 10:16 Assessment and Plan Assessment: 1. Hyponatremia, improved with normal saline. Most likely related to recent aggressive diuresis. I will discontinue the saline. Patient was maintained on metolazone and Bumex prior to admission. Currently on hold. 2. Ischemic cardiomyopathy with EF of 20-25% 3. Coronary artery disease status post coronary stentsand coronary artery bypass surgery 4. History of apical thrombus maintained on anticoagulation 5. Acute kidney injury secondary to hypotension and recent aggressive diuresis, currently improved. Plan: discontinue saline Repeat sodium this evening Check bladder scan and rule out urine retention. Will likely resume lower dose of diuretics in a.m. continue with Aldactone and entresto. Maintain salt and fluid restriction Thank you for the consultation. We will continue to follow the patient with you during her hospitalization.
[2024-02-16] MEDS: METOPROLOL TARTRATE 12.5 MG TAB PO SCH (14:06)
--- NOTE | 2024-02-16 14:58 | P.HPIM ---
History of Present Illness H&P Date: 02/16/24 Chief Complaint: Shortness of breath, high blood pressure This is a 48-year-old female with past medical history significant for chronic hypoxic respiratory failure on 2 L nasal cannula at home,COPD, ischemic cardiomyopathy, EF 25%, AICD, coronary artery disease with multiple previous PCI/stenting, hyperlipidemia, hypertension, chronic pain with pain pump, reported recent hospitalization in [place] for pneumonia early December 2023, recently hospitalized with acute COPD exacerbation and acute CHF exacerbation, apical thrombus anticoagulated on Eliquis, recently quit smoking--a heavy 2 to 3 pack a day smoker for several years and multiple other medical issues presented to the ER with complaints of high blood pressure, lower extremity edema, weight gain. Reports recently her Bumex was increased. Denies nausea vomiting or diarrhea. Denies abdominal pain. Discloses that she increased her home O2 from 2 L to 3 L without improvement in her symptoms. Denies chest pain, palpitations or shortness of breath. Troponin negative x 1. On admission, hypotensive with blood pressure 83/54 ,O2 sat 94% on 2 L nasal cannula, currently requiring 3 L to maintain O2 sats of 93%, hyponatremic with a sodium 117, hypochloremic with chloride of 74, bicarb 33 BUN 45, creatinine 1.24, baseline creatinine around 1. Afebrile, normal WBC. Lactic acid 1.3. Potassium 4.7, magnesium 2.0, LFTs within normal limits. Chest x-ray reports redemonstrated cardiomegaly, mild pulmonary vascular congestion. Status post IV fluid bolus with maintenance IV fluids initiated in the ER. Maintained on Aldactone and Entresto. Review of Systems ROS Statement: Those systems with pertinent positive or pertinent negative responses have been documented in the HPI. ROS Other: All systems not noted in ROS Statement are negative. Past Medical History Past Medical History: Asthma, Coronary Artery Disease (CAD), Chest Pain / Angina, Heart Failure, COPD, Fibromyalgia, GERD/Reflux, Hyperlipidemia, Myocardial Infarction (OH), Musculoskeletal Disorder, Osteoarthritis (OA), Pneumonia Additional Past Medical History / Comment(s): Has Pain Pump and AICD. Ishemic Cardiomyopathy. Hx OH X3 - 2004, 2012, 2017. Hx bronchitis. Chronic back pain, lumbar Degenerative Disc Disease, occasional neck pain, osteoporosis, migraines. Hx UTIs, kidney stones. Vertigo. Last Myocardial Infarction Date:: 2017 History of Any Multi-Drug Resistant Organisms: None Reported Past Surgical History: AICD, Heart Catheterization, Heart Catheterization With Stent, Orthopedic Surgery, Tubal Ligation Additional Past Surgical History / Comment(s): Multiple stents, left hand surgery, pain clinic procedures, [employer] Pain Pump surgically implanted. Past Anesthesia/Blood Transfusion Reactions: No Reported Reaction, Motion Sickness Date of Last Stent Placement:: 08-13-16 Type of Cardiac Device: AICD Device Placement Date:: 2016 [place]. Past Psychological History: Anxiety, Bipolar, Depression Smoking Status: Former smoker Past Alcohol Use History: Occasional Additional Past Alcohol Use History / Comment(s): Started smoking in 1988, about 1 ppd, quit 09/21/19, restarted in 2020 quit 2022. No longer drinks alcohol. Past Drug Use History: Marijuana Additional Drug Use History / Comment(s): Medical Marijuana use occasionally. - Past Family History Mother Family Medical History: Coronary Artery Disease (CAD), Fibromyalgia, Hyperlipidemia Additional Family Medical History / Comment(s): Emotional problems, bipolar. Father Family Medical History: CVA/TIA, Fibromyalgia, Hyperlipidemia, Hypertension, Musculoskeletal Disorder Additional Family Medical History / Comment(s): MS. Sister(s) History Unknown: Yes Family Medical History: Hyperlipidemia Medications and Allergies Home Medications Medication Instructions Recorded Confirmed Type Omeprazole [PriLOSEC] 40 mg PO DAILY@0700 11/29/16 02/15/24 History Atorvastatin [Lipitor] 80 mg PO DAILY@1900 11/30/16 02/15/24 History Divalproex ER [Depakote ER] 1,000 mg PO DAILY@1200 02/06/17 02/15/24 History Alendronate Sodium 70 mg PO COHEN@0700 06/29/17 02/15/24 History Metoprolol Tartrate [Lopressor] 12.5 mg PO BID@1200,1900 09/25/19 02/15/24 History Isosorbide Mononitrate [Isosorbide 30 mg PO DAILY@1000 11/19/19 02/15/24 History Mononitrate ER] Spironolactone [Aldactone] 25 mg PO BID@1000,1600 11/19/19 02/15/24 History Escitalopram [Lexapro] 20 mg PO DAILY@1900 04/27/20 02/15/24 History ALPRAZolam [Xanax] 0.25 mg PO BID PRN 02/12/23 02/15/24 History Aspirin EC [Ecotrin Low Dose] 81 mg PO DAILY@1600 02/12/23 02/15/24 History Gabapentin [Neurontin] 900 mg PO TID@1000,1600,2200 02/12/23 02/15/24 History Sacubitril/Valsartan [Entresto 24 1 tab PO BID@1000,1600 02/12/23 02/15/24 History mg-26 mg Tablet] traZODone HCL [Desyrel] 25 mg PO HS@2200 02/12/23 02/15/24 History Ezetimibe [Zetia] 10 mg PO DAILY@1000 04/23/23 02/15/24 History Albuterol Sulfate [Ventolin HFA] 2 puff INHALATION RT-Q6H PRN 01/25/24 02/15/24 History Fluticasone/Umeclidin/Vilanter 1 puff INHALATION RT-DAILY 01/25/24 02/15/24 History [Trelegy Ellipta 200-62.5-25] Patient Own Pump 0 bag 01/25/24 History oxyCODONE-APAP 5-325MG [Percocet 1 tab PO BID PRN 01/25/24 02/15/24 History 5-325 mg] Apixaban [Eliquis] 5 mg PO BID #60 tab 01/27/24 02/15/24 Rx Ipratropium-Albuterol Nebulize 3 ml INHALATION RT-QID each 01/27/24 02/15/24 Rx [Duoneb 0.5 mg-3 mg/3 ml Soln] Bumetanide [BUMEX] 2 mg PO BID@0900,1600 02/15/24 02/15/24 History metOLazone [Zaroxolyn] 2.5 mg PO Q48H 02/15/24 02/15/24 History Allergies Allergy/AdvReac Type Severity Reaction Status Date / Time moxifloxacin HCl Allergy Rash/Hives Verified 02/15/24 19:58 [From Avelox] Physical Exam Vitals: Vital Signs Temp Pulse Pulse Resp BP BP Pulse Ox 02/16/24 09:29 65 16 02/16/24 09:21 63 16 93 L 02/16/24 08:00 97.4 F L 74 18 111/70 93 L 02/16/24 03:45 71 18 114/70 95 02/15/24 23:20 97.3 F L 67 18 91/52 94 L 02/15/24 22:27 70 16 106/74 95 02/15/24 22:12 72 18 102/63 96 02/15/24 21:38 68 16 83/52 96 02/15/24 20:54 72 18 84/57 94 L 02/15/24 19:50 77 18 79/43 95 02/15/24 19:23 78 20 84/45 98 02/15/24 19:13 98.3 F 74 20 79/50 94 L Intake and Output 02/15/24 02/16/24 02/16/24 22:59 06:59 14:59 Other: Voiding Method Toilet # Voids 1 Weight 104.326 kg 106.2 kg PHYSICAL EXAM: VITAL SIGNS: [As above] GENERAL: Morbidly obese, alert and oriented x 3, sitting up in bed, no acute distress HEENT: Atraumatic, normocephalic .conjunctivae normal. eyes normal. Sclera anicteric. NECK: Supple, no JVD. CARDIOVASCULAR: S1, S2 regular. Systolic murmur RESPIRATION: Unlabored, equal air entry, no intercostal retractions , bilateral lungs diminished. ABDOMEN: Soft, nontender . No guarding. no masses palpable. Positive bowel sounds LEGS: Positive bilateral lower extremity edema, left calf tenderness-ultrasound ordered NERVOUS SYSTEM: Cranial N 2-12 grossly normal.Diffuse weakness No focal deficits. Skin: Warm and dry, no rash Results CBC & Chem 7: 02/16/24 10:16 02/16/24 13:23 Labs: Abnormal Lab Results - Last 24 Hours (Table) 02/15/24 02/15/24 02/15/24 Range/Units 19:50 19:50 19:50 RBC 3.33 L (3.80-5.40) m/uL Hgb 10.6 L (11.4-16.0) gm/dL Hct 29.4 L (34.0-46.0) % APTT 30.7 H (22.0-30.0) sec Sodium 117 L* (137-145) mmol/L Chloride 74 L* (98-107) mmol/L Carbon Dioxide 33 H (22-30) mmol/L BUN 45 H (7-17) mg/dL Creatinine 1.24 H (0.52-1.04) mg/dL Glucose 122 H (74-99) mg/dL Thrombosis Risk Factor Assmnt - Choose All That Apply Any of the Below Risk Factors Present?: Yes Each Factor Represents 1 point: Age 41-60 years, Obesity (BMI >25), Swollen legs (current) Thrombosis Risk Factor Assessment Total Risk Factor Score: 3 Thrombosis Risk Factor Assessment Level: Moderate Risk Assessment and Plan Assessment: Hyponatremia, hypovolemic, secondary to reported Bumex increased and hypotension Hypochloremic Acute on chronic hypoxic, hypercapnic respiratory failure, wears 2 L nasal cannula O2 at home Acute renal injury, related to HERLINDA possibly cardiorenal syndrome Hypotension, improved after fluid resuscitation. Left lower extremity edema with tenderness, ruling out DVT ,Doppler ordered Chronic hypercapnic respiratory failure Chronic obstructive pulmonary disease History of apical thrombus maintained on anticoagulation Chronic systolic CHF History of ischemic cardiomyopathy, with ejection fraction of 25%, status post AICD implantation Coronary artery disease, with history of multiple PCI/stenting Hyperlipidemia Chronic pain, with implanted pain pump Recent former nicotine dependent Morbid obesity, with a BMI of 43 Plan: Continue on current medication resume ,monitoring and symptomatic treatment. Ruling out left lower extremity DVT, Doppler ordered. Diuretics on hold. Fluid restrictions. Sodium is increased to 128.nephrology consult initiated. Discharge planning in progress for the next 24 to 48 hours. The impression and plan of care has been dictated as directed. : I performed a history and examination of this patient, discussed the same with the dictator. I agree with the dictator's note ,documented as a scribe. Any additional findings or plans will be noted.
--- NOTE | 2024-02-16 15:16 | US ---
EXAMINATION TYPE: US venous doppler duplex LE LT DATE OF EXAM: 02/16/2024 2:50 PM Exam done portable COMPARISON: US 2023 CLINICAL INDICATION: Female, 48 years old with history of edema, tender; Left leg pain SIDE PERFORMED: Left TECHNIQUE: The lower extremity deep venous system is examined utilizing real time linear array sonog chester with graded compression, doppler sonography and color-flow sonography. VESSELS IMAGED: Common Femoral Vein Deep Femoral Vein Greater Saphenous Vein * Femoral Vein Popliteal Vein Small Saphenous Vein * Proximal Calf Veins (* superficial vessels) Left Leg: Appears negative for DVT IMPRESSION: Grayscale, color doppler, spectral doppler imaging performed of the deep veins of the lo wer extremities. There is normal flow, compressibility, vascular waveforms.
[2024-02-16] MEDS: oxyCODONE-APAP 5-325MG 1 EACH TAB PO PRN (15:26)
[2024-02-16] MEDS: ATORVASTATIN 80 MG TAB PO SCH (20:12)
[2024-02-16] MEDS: ESCITALOPRAM 20 MG TAB PO SCH (20:13)
[2024-02-17 06:48] LABS: African American GFR (CKD) >90 (>60 ml/min/1.73 sqM); Anion Gap 3 mmol/L; Blood Urea Nitrogen 35 mg/dL (7-17); Carbon Dioxide 37 mmol/L (22-30); Chloride 90 mmol/L (98-107); Glucose 104 mg/dL (74-99); Non-African American GFR(CKD) 84 (>60 ml/min/1.73 sqM); Potassium 4.2 mmol/L (3.5-5.1); Sodium 130 mmol/L (137-145)
--- NOTE | 2024-02-17 10:51 | P.PN ---
Subjective Progress Note Date: 02/17/24 Principal diagnosis: hyponatremia, patient is awake alert vital signs are stable patient is afebrile, hyponatremia correcting symptoms are improved Objective - Vital Signs Vital signs: Vital Signs Temp 97.3 F L 02/17/24 08:59 Pulse 68 02/17/24 08:59 Resp 19 02/17/24 08:59 BP 85/54 02/17/24 08:59 Pulse Ox 98 02/17/24 09:07 FiO2 Intake & Output 02/16/24 02/17/24 02/17/24 18:59 06:59 18:59 Intake Total 1200 Balance 1200 Weight 105.6 kg Intake: Oral 1200 Other: Voiding Method Toilet Toilet Toilet # Voids 2 2 1 - Exam General: [Patient awake, alert and oriented times 3. Patient in no acute distress. morbidly obese HEENT: [PERRL. EOMI. No pharyngeal erythema or exudate.] Neck: [No adenopathy.] Cardiac: [Heart regular in rate and rhythm. No S3. No S4. No clicks, rubs. No murmur.] Lungs: [Clear to auscultation bilaterally.] Abdomen: [No mass. No organomegaly. Bowel sounds presnt and normoactive in all 4 quadrants.] Extremes: [No edema no cyanosis no claudication normal pulses] : normal female genitalia Musculoskeletal: [No joint erythema, edema or tenderness.] Skin: [No rash.] Neurologic: [No lateralizing deficits. CN II - XII grossly intact.] Lymphatic: [No adenopathy.] - Labs CBC & Chem 7: 02/16/24 10:16 02/17/24 06:06 Labs: Abnormal Lab Results - Last 24 Hours (Table) 02/16/24 02/16/24 02/16/24 Range/Units 10:16 13:23 15:00 Sodium 128 L 129 L (137-145) mmol/L Chloride 86 L (98-107) mmol/L Carbon Dioxide 36 H (22-30) mmol/L BUN 36 H (7-17) mg/dL Glucose 155 H (74-99) mg/dL Urine Osmolality 348 L (400-1100) mOsm/kg 02/17/24 Range/Units 06:06 Sodium 130 L (137-145) mmol/L Chloride 90 L (98-107) mmol/L Carbon Dioxide 37 H (22-30) mmol/L BUN 35 H (7-17) mg/dL Glucose 104 H (74-99) mg/dL Urine Osmolality (400-1100) mOsm/kg Assessment and Plan (1) COPD (chronic obstructive pulmonary disease) Current Visit: Yes Status: Acute Code(s): J44.9 - CHRONIC OBSTRUCTIVE PULMONARY DISEASE, UNSPECIFIED SNOMED Code(s): 45990048 (2) Hypochloremia Current Visit: Yes Status: Acute Code(s): E87.8 - OTH DISORDERS OF ELECTROLYTE AND FLUID BALANCE, NEC SNOMED Code(s): 69708861 (3) Hyponatremia Current Visit: Yes Status: Acute Code(s): E87.1 - HYPO-OSMOLALITY AND HYPONA TREMIA SNOMED Code(s): 10818030 (4) HERLINDA (acute kidney injury) Current Visit: No Status: Acute Code(s): N17.9 - ACUTE KIDNEY FAILURE, UNSPECIFIED SNOMED Code(s): 03732545 (5) History of hypertension Current Visit: No Status: Acute Code(s): Z86.79 - PERSONAL HISTORY OF OTHER DISEASES OF THE CIRCULATORY SYSTEM SNOMED Code(s): 688729719 Plan: continue Aldactone and and entresto Continue salt and fluid restriction Further orders to follow Time with Patient: Greater than 30
--- NOTE | 2024-02-17 13:51 | P.PN ---
Subjective patient is seen for follow-up for hyponatremia. patient has underlying history of CHF with EF of 20-25%. Serum sodium has improved to 130. Currently off of normal saline. No complaints of shortness of breath. Objective - Vital Signs Vital signs: Vital Signs Temp 97.3 F L 02/17/24 08:59 Pulse 66 02/17/24 11:44 Resp 17 02/17/24 11:44 BP 94/59 02/17/24 11:44 Pulse Ox 97 02/17/24 11:44 FiO2 Intake & Output 02/16/24 02/17/24 02/17/24 18:59 06:59 18:59 Intake Total 1440 Balance 1440 Weight 105.6 kg Intake: Oral 1440 Other: Voiding Method Toilet Toilet Toilet # Voids 2 2 1 - Exam patient is awake, comfortable, no acute distress. Examination of the heart S1 and S2 Examination of the lungs bilateral breath sounds are heard Abdomen is soft nontender Examination of lower extremities shows trace edema bilaterally [employer] exam grossly intact - Labs CBC & Chem 7: 02/16/24 10:16 02/17/24 06:06 Labs: Abnormal Lab Results - Last 24 Hours (Table) 02/16/24 02/16/24 02/17/24 Range/Units 13:23 15:00 06:06 Sodium 129 L 130 L (137-145) mmol/L Chloride 90 L (98-107) mmol/L Carbon Dioxide 37 H (22-30) mmol/L BUN 35 H (7-17) mg/dL Glucose 104 H (74-99) mg/dL Urine Osmolality 348 L (400-1100) mOsm/kg Assessment and Plan Assessment: 1. Hyponatremia, improved with normal saline. Most likely related to recent aggressive diuresis. status post normal saline. Patient was maintained on metolazone and Bumex prior to admission. Currently on hold. can likely resume diuretics in a.m. 2. Ischemic cardiomyopathy with EF of 20-25% 3. Coronary artery disease status post coronary stents and coronary artery bypass surgery 4. History of apical thrombus maintained on anticoagulation 5. Acute kidney injury secondary to hypotension and recent aggressive diuresis, currently improved. Plan: maintain off of IV fluids Possibly resume diuretics in a.m. Maintain salt and fluid restriction Continue with Aldactone , added parameters to metoprolol as blood pressure remains low.
[2024-02-17] MEDS: oxyCODONE-APAP 5-325MG 1 EACH TAB PO PRN (16:33)
[2024-02-18] MEDS ORDERED: NON FORMULARY DRUG (Alendronate Sodium [Alendronate Sodium] 70 MG Tablet) PO SCH (07:00)
[2024-02-18 08:20] LABS: African American GFR (CKD) >90 (>60 ml/min/1.73 sqM); Blood Urea Nitrogen 28 mg/dL (7-17); Calcium 9.6 mg/dL (8.4-10.2); Chloride 90 mmol/L (98-107); Glucose 92 mg/dL (74-99); Non-African American GFR(CKD) 85 (>60 ml/min/1.73 sqM); Potassium 4.9 mmol/L (3.5-5.1); Sodium 134 mmol/L (137-145)
[2024-02-18 08:26] LABS: Anion Gap 7 mmol/L; Carbon Dioxide 37 mmol/L (22-30)
--- NOTE | 2024-02-18 13:45 | P.PN ---
Subjective patient is seen for follow-up for hyponatremia. patient has underlying history of CHF with EF of 20-25%. Serum sodium has improved to 134. Currently off of normal saline. patient is currently in the shower, she denies any significant shortness of breath Objective - Vital Signs Vital signs: Vital Signs Temp 98.6 F 02/18/24 09:06 Pulse 66 02/18/24 12:16 Resp 17 02/18/24 12:16 BP 98/49 02/18/24 12:16 Pulse Ox 99 02/18/24 12:16 FiO2 Intake & Output 02/17/24 02/18/24 02/18/24 18:59 06:59 18:59 Intake Total 1440 540 720 Balance 1440 540 720 Weight 105.8 kg Intake: Oral 1440 540 720 Other: Voiding Method Toilet Toilet Toilet # Voids 2 - Exam patient is awake, comfortable, no acute distress. currently in the shower, and not examined - Labs CBC & Chem 7: 02/16/24 10:16 02/18/24 07:27 Labs: Abnormal Lab Results - Last 24 Hours (Table) 02/18/24 Range/Units 07:27 Sodium 134 L (137-145) mmol/L Chloride 90 L (98-107) mmol/L Carbon Dioxide 37 H (22-30) mmol/L BUN 28 H (7-17) mg/dL Assessment and Plan Assessment: 1. Hyponatremia, improved with normal saline. Most likely related to recent aggressive diuresis. status post normal saline. Patient was maintained on metolazone and Bumex prior to admission. Currently on hold. We can resume lower dose of Bumex if she is discharged today. 2. Ischemic cardiomyopathy with EF of 20-25% 3. Coronary artery disease status post coronary stents and coronary artery bypass surgery 4. History of apical thrombus maintained on anticoagulation 5. Acute kidney injury secondary to hypotension and recent aggressive diuresis, currently improved. Plan: maintain off of IV fluids resume Bumex at 1 mg twice a day if patient is discharged today. She should monitor her weight daily and report any significant gain in weight over 24-48 hours. Patient will also need close monitoring of labs as outpatient. Maintain salt and fluid restriction Continue with Aldactone , added parameters to metoprolol as blood pressure remains low.
[2024-02-18] MEDS: polyethylene glycoL 3350 17 GM POWD.PACK PO SCH (16:46)
[2024-02-19 06:26] VITALS: TEMP 98.2
[2024-02-19 09:09] VITALS: RESP 16
--- NOTE | 2024-02-19 12:17 | P.DS ---
Providers Date of admission: 02/15/24 21:49 Expected date of discharge: 02/19/24 Attending physician: Ga Hooper Consults: 02/16/24 09:23 Consult Physician Urgent Consulting Provider: Christy Elliott Consult Reason/Comments: hyponatremia Do you want consulting provider notified?: Yes Primary care physician: Brenden Rodriguez [facility] Course: Final Diagnoses: Hyponatremia, hypovolemic, secondary to reported Bumex increased and hypotension Hypochloremic Acute on chronic hypoxic, hypercapnic respiratory failure, wears 2 L nasal cannula O2 at home Acute renal injury, related to HERLINDA possibly cardiorenal syndrome Hypotension, improved after fluid resuscitation. Left lower extremity edema with tenderness, ruling out DVT ,Doppler ordered Chronic hypercapnic respiratory failure Chronic obstructive pulmonary disease History of apical thrombus maintained on anticoagulation Chronic systolic CHF History of ischemic cardiomyopathy, with ejection fraction of 25%, status post AICD implantation Coronary artery disease, with history of multiple PCI/stenting Hyperlipidemia Chronic pain, with implanted pain pump Recent former nicotine dependent Morbid obesity, with a BMI of 43 Hospital course:This is a 48-year-old female with past medical history significant for chronic hypoxic respiratory failure on 2 L nasal cannula at home,COPD, ischemic cardiomyopathy, EF 25%, AICD, coronary artery disease with multiple previous PCI/stenting, hyperlipidemia, hypertension, chronic pain with pain pump, reported recent hospitalization in [place] for pneumonia early December 2023, recently hospitalized with acute COPD exacerbation and acute CHF exacerbation, apical thrombus anticoagulated on Eliquis, recently quit smoking--a heavy 2 to 3 pack a day smoker for several years and multiple other medical issues presented to the ER with complaints of high blood pressure, lower extremity edema, weight gain. Reports recently her Bumex was increased. Denies nausea vomiting or diarrhea. Denies abdominal pain. Discloses that she increased her home O2 from 2 L to 3 L without improvement in her symptoms. Denies chest pain, palpitations or shortness of breath. Troponin negative x 1. On admission, hypotensive with blood pressure 83/54 ,O2 sat 94% on 2 L nasal cannula, currently requiring 3 L to maintain O2 sats of 93%, hyponatremic with a sodium 117, hypochloremic with chloride of 74, bicarb 33 BUN 45, creatinine 1.24, baseline creatinine around 1. Afebrile, normal WBC. Lactic acid 1.3. Potassium 4.7, magnesium 2.0, LFTs within normal limits. Chest x-ray reports redemonstrated cardiomegaly, mild pulmonary vascular congestion. Status post IV fluid bolus with maintenance IV fluids initiated in the ER. Maintained on Aldactone and Entresto. Ruling out left lower extremity DVT, Doppler ordered. Diuretics on hold. Fluid restrictions. Sodium is increased to 128.nephrology consult initiated. Discharge planning in progress for the next 24 to 48 hours. Evaluated and treated by nephrology. Continued on Aldactone and Entresto. Maintained on salt and fluid restrictions with significant clinical improvement. Continued improvement in sodium currently 134, now off of IV normal saline.. Denies chest pain, palpitations or shortness of breath. Maintaining O2 sats of 94% on room air. Evaluated by PT, commending home/home with home care at [facility]. Cleared by nephrology for discharge, on Bumex 1 mg twice daily. Patient has been instructed to monitor her weight daily and report any significant weight gain over 24 to 48 hours. Close monitoring of labs outpatient. Maintain salt and fluid restriction as previously advised. Continue with Aldactone, added parameters to metoprolol secondary to blood pressures soft. patient will be discharged home today in a stable condition with guarded prognosis. The impression and plan of care has been dictated as directed. : I performed a history and examination of this patient, discussed the same with the dictator. I agree with the dictator's note ,documented as a scribe. Any additional findings or plans will be noted. Patient Condition at Discharge: Stable Plan - Discharge Summary Discharge Rx Participant: No New Discharge Prescriptions: New polyethylene glycoL 3350 [Miralax] 17 gm PO DAILY packet Continue Omeprazole [PriLOSEC] 40 mg PO DAILY@0700 Atorvastatin [Lipitor] 80 mg PO DAILY@1900 Divalproex ER [Depakote ER] 1,000 mg PO DAILY@1200 Alendronate Sodium 70 mg PO COHEN@0700 Metoprolol Tartrate [Lopressor] 12.5 mg PO BID@1200,1900 Spironolactone [Aldactone] 25 mg PO BID@1000,1600 Isosorbide Mononitrate [Isosorbide Mononitrate ER] 30 mg PO DAILY@1000 Escitalopram [Lexapro] 20 mg PO DAILY@1900 Gabapentin [Neurontin] 900 mg PO TID@1000,1600,2200 Sacubitril/Valsartan [Entresto 24 mg-26 mg Tablet] 1 tab PO BID@1000,1600 Ezetimibe [Zetia] 10 mg PO DAILY@1000 Patient Own Pump 0 bag Albuterol Sulfate [Ventolin HFA] 2 puff INHALATION RT-Q6H PRN PRN Reason: Shortness Of Breath Apixaban [Eliquis] 5 mg PO BID #60 tab Aspirin EC [Ecotrin Low Dose] 81 mg PO DAILY@1600 traZODone HCL [Desyrel] 25 mg PO HS@2200 ALPRAZolam [Xanax] 0.25 mg PO BID PRN PRN Reason: Anxiety oxyCODONE-APAP 5-325MG [Percocet 5-325 mg] 1 tab PO BID PRN PRN Reason: Pain Fluticasone/Umeclidin/Vilanter [Trelegy Ellipta 200-62.5-25] 1 puff INHALATION RT-DAILY Ipratropium-Albuterol Nebulize [Duoneb 0.5 mg-3 mg/3 ml Soln] 3 ml INHALATION RT-QID each Changed Bumetanide [BUMEX] 2 mg PO BID@0900,1600 #0 Discontinued metOLazone [Zaroxolyn] 2.5 mg PO Q48H Discharge Medication List Omeprazole [PriLOSEC] 40 mg PO DAILY@0700 11/29/16 [History] Atorvastatin [Lipitor] 80 mg PO DAILY@1900 11/30/16 [History] Divalproex ER [Depakote ER] 1,000 mg PO DAILY@1200 02/06/17 [History] Alendronate Sodium 70 mg PO COHEN@0700 06/29/17 [History] Metoprolol Tartrate [Lopressor] 12.5 mg PO BID@1200,1900 09/25/19 [History] Isosorbide Mononitrate [Isosorbide Mononitrate ER] 30 mg PO DAILY@1000 11/19/19 [History] Spironolactone [Aldactone] 25 mg PO BID@1000,1600 11/19/19 [History] Escitalopram [Lexapro] 20 mg PO DAILY@1900 04/27/20 [History] ALPRAZolam [Xanax] 0.25 mg PO BID PRN 02/12/23 [History] Aspirin EC [Ecotrin Low Dose] 81 mg PO DAILY@1600 02/12/23 [History] Gabapentin [Neurontin] 900 mg PO TID@1000,1600,2200 02/12/23 [History] Sacubitril/Valsartan [Entresto 24 mg-26 mg Tablet] 1 tab PO BID@1000,1600 02/12/23 [History] traZODone HCL [Desyrel] 25 mg PO HS@2200 02/12/23 [History] Ezetimibe [Zetia] 10 mg PO DAILY@1000 04/23/23 [History] Albuterol Sulfate [Ventolin HFA] 2 puff INHALATION RT-Q6H PRN 01/25/24 [History] Fluticasone/Umeclidin/Vilanter [Trelegy Ellipta 200-62.5-25] 1 puff INHALATION RT-DAILY 01/25/24 [History] Patient Own Pump 0 bag 01/25/24 [History] oxyCODONE-APAP 5-325MG [Percocet 5-325 mg] 1 tab PO BID PRN 01/25/24 [History] Apixaban [Eliquis] 5 mg PO BID #60 tab 01/27/24 [Rx] Ipratropium-Albuterol Nebulize [Duoneb 0.5 mg-3 mg/3 ml Soln] 3 ml INHALATION RT-QID each 01/27/24 [Rx] Bumetanide [BUMEX] 2 mg PO BID@0900,1600 #0 02/19/24 [Rx] polyethylene glycoL 3350 [Miralax] 17 gm PO DAILY packet 02/19/24 [Rx] Follow up Appointment(s)/Referral(s): [facility], [NON-STAFF] - Brenden Rodriguez MD [Primary Care Provider] - 3 Days Activity/Diet/Wound Care/Special Instructions: fluid restrictions 1500 mL Discharge/Stand Alone Forms: Who Do I Call? Discharge Disposition: HOME SELF-CARE
[2024-02-19 12:20] VITALS: BP 103/59; PULSE 71
--- NOTE | 2024-02-19 14:23 | P.PN ---
Subjective patient is seen for follow-up for hyponatremia. patient has underlying history of CHF with EF of 20-25%. Serum sodium has improved to 134. Currently off of normal saline. no complaints today. Objective - Vital Signs Vital signs: Vital Signs Temp 98.2 F 02/19/24 04:00 Pulse 71 02/19/24 12:00 Resp 16 02/19/24 12:00 BP 103/59 02/19/24 12:00 Pulse Ox 94 L 02/19/24 12:00 FiO2 Intake & Output 02/18/24 02/19/24 02/19/24 18:59 06:59 18:59 Intake Total 1380 240 358 Output Total 300 Balance 1380 -60 358 Weight 105.3 kg Intake: Oral 1380 240 358 Output: Urine 300 Other: Voiding Method Toilet Toilet Toilet - Exam patient is awake, comfortable, no acute distress. alert oriented 3. Examination of the heart S1 and S2 Examination the lungs bilateral breath sounds are heard Abdomen is soft nontender Examination of lower extremity shows no significant edema STAFF INTERPRETER exam grossly intact - Labs CBC & Chem 7: 02/16/24 10:16 02/18/24 07:27 Assessment and Plan Assessment: 1. Hyponatremia, improved with normal saline. Most likely related to recent aggressive diuresis. status post normal saline. Patient was maintained on metolazone and Bumex prior to admission. Currently on hold. We can resume lower dose of Bumex if she is discharged today. 2. Ischemic cardiomyopathy with EF of 20-25% 3. Coronary artery disease status post coronary stents and coronary artery bypass surgery 4. History of apical thrombus maintained on anticoagulation 5. Acute kidney injury secondary to hypotension and recent aggressive diuresis, currently improved. Plan: maintain off of IV fluids resume Bumex at 1 mg twice a day if patient is discharged today. She should monitor her weight daily and report any significant gain in weight over 24-48 hours. Patient will also need close monitoring of labs as outpatient. Maintain salt and fluid restriction Continue with Aldactone , added parameters to metoprolol as blood pressure remains low.
== END 2024-02-19 16:20 | disposition home or self-care (01) | DRG 640 ==
LOC: EC 18:56 → 3SCARD 21:49
PROVIDERS: ADMIT Family Medicine; ATTEND Family Medicine
DX: E87.1 Hypo-osmolality and hyponatremia (principal); J96.21 Acute and chronic respiratory failure with hypoxia; J96.22 Acute and chronic respiratory failure with hypercapnia; Z68.41 Body mass index [BMI] 40.0-44.9, adult; N17.9 Acute kidney failure, unspecified; I50.22 Chronic systolic (congestive) heart failure; I11.0 Hypertensive heart disease with heart failure; E78.5 Hyperlipidemia, unspecified; F17.210 Nicotine dependence, cigarettes, uncomplicated; E66.01 Morbid (severe) obesity due to excess calories; T50.1X5A Adverse effect of loop [high-ceiling] diuretics, initial encounter; X58.XXXA Exposure to other specified factors, initial encounter; I95.9 Hypotension, unspecified; E86.1 Hypovolemia; E87.8 Other disorders of electrolyte and fluid balance, not elsewhere classified; F41.9 Anxiety disorder, unspecified; F31.9 Bipolar disorder, unspecified; G89.29 Other chronic pain; I25.10 Atherosclerotic heart disease of native coronary artery without angina pectoris; I25.5 Ischemic cardiomyopathy; M79.7 Fibromyalgia; J44.9 Chronic obstructive pulmonary disease, unspecified; M19.90 Unspecified osteoarthritis, unspecified site; Z95.810 Presence of automatic (implantable) cardiac defibrillator; I25.2 Old myocardial infarction; M54.9 Dorsalgia, unspecified; M81.0 Age-related osteoporosis without current pathological fracture; Z79.01 Long term (current) use of anticoagulants; Z79.82 Long term (current) use of aspirin; Z79.899 Other long term (current) drug therapy; Z82.49 Family history of ischemic heart disease and other diseases of the circulatory system; Z87.440 Personal history of urinary (tract) infections; Z87.442 Personal history of urinary calculi; Z95.1 Presence of aortocoronary bypass graft; Z95.5 Presence of coronary angioplasty implant and graft; Z96.89 Presence of other specified functional implants; Z97.8 Presence of other specified devices
CPT/HCPCS: 36415; 71046; 80048; 80053; 83605; 83735; 83880; 83935; 84295; 84300; 84484; 85025; 85610; 85730; 93005; 94640; 94760; 96361; 96374; 99285

== ENCOUNTER → 2024-03-05 | Outpatient (CLI) | payer MEDICARE | END | disposition home or self-care (01) | LOC: LABPRL 12:34 | PROVIDERS: ATTEND Family Medicine | DX: I11.0 Hypertensive heart disease with heart failure (principal); Z09 Encounter for follow-up examination after completed treatment for conditions other than malignant neoplasm; I50.22 Chronic systolic (congestive) heart failure; I25.119 Atherosclerotic heart disease of native coronary artery with unspecified angina pectoris; I51.3 Intracardiac thrombosis, not elsewhere classified; J44.9 Chronic obstructive pulmonary disease, unspecified; Z99.81 Dependence on supplemental oxygen; E66.01 Morbid (severe) obesity due to excess calories; Z68.41 Body mass index [BMI] 40.0-44.9, adult; Z87.891 Personal history of nicotine dependence | CPT/HCPCS: 80053; 83880 ==

== ENCOUNTER 2024-07-03 15:18 | Observation (INO) | payer MEDICARE ==
[2024-07-03 16:22] LABS: Basophils % (A) 1 %; Eosinophils # (A) 0.2 k/uL (0-0.7); Eosinophils % (A) 3 %; HCT 45.5 % (34.0-46.0); HGB 15.3 gm/dL (11.4-16.0); Lymphocytes # (A) 2.4 k/uL (1.0-4.8); Lymphocytes % (A) 43 %; MCH 29.7 pg (25.0-35.0); MCHC 33.6 g/dL (31.0-37.0); MCV 88.6 fL (80.0-100.0); Monocytes # (A) 0.3 k/uL (0-1.0); Monocytes % (A) 6 %; Neutrophils # (A) 2.5 k/uL (1.3-7.7); Neutrophils % (A) 45 %; Platelet Count 311 k/uL (150-450); RBC 5.14 m/uL (3.80-5.40); RDW 14.5 % (11.5-15.5); WBC 5.7 k/uL (3.8-10.6)
--- NOTE | 2024-07-03 16:33 | XR ---
EXAMINATION TYPE: XR chest 2V DATE OF EXAM: 07/03/2024 4:28 PM COMPARISON: Chest radiographs from 02/15/2024 CLINICAL INDICATION: Female, 48 years old with history of Chest Pain; [facility] TECHNIQUE: XR chest 2V Frontal and lateral views of the chest. FINDINGS: Lungs/Pleura: There is no evidence of pleural effusion, focal consolidation, or pneumothorax. Pulmonary vascularity: Unremarkable. Heart/mediastinum: Cardiomediastinal silhouette is unremarkable. Two lead cardiac conduction device o verlying the left hemithorax with lead tips projecting over the right ventricle and right atrium. Musculoskeletal: No acute osseous pathology. IMPRESSION: No acute cardiopulmonary disease/process. [facility], , 07/03/2024 4:31 PM
[2024-07-03 16:34] LABS: ALT 18 U/L (4-34); AST 18 U/L (14-36); African American GFR (CKD) >90 (>60 ml/min/1.73 sqM); Albumin 4.8 g/dL (3.5-5.0); Alkaline Phosphatase 114 U/L (38-126); Anion Gap 9 mmol/L; Blood Urea Nitrogen 11 mg/dL (7-17); Carbon Dioxide 21 mmol/L (22-30); Chloride 107 mmol/L (98-107); Glucose 93 mg/dL (74-99); Magnesium 1.9 mg/dL (1.6-2.3); Non-African American GFR(CKD) >90 (>60 ml/min/1.73 sqM); Sodium 137 mmol/L (137-145); Total Bilirubin 0.9 mg/dL (0.2-1.3); Total Protein 8.1 g/dL (6.3-8.2)
[2024-07-03 16:36] LABS: Partial Thromboplastin Time 25.5 sec (22.0-30.0)
--- NOTE | 2024-07-03 17:01 | ED ---
General Adult HPI - General Chief complaint: Chest Pain Stated complaint: abn ekg Time Seen by Provider: 07/03/24 15:30 Source: patient, RN notes reviewed, old records reviewed Mode of arrival: ambulatory Limitations: no limitations - History of Present Illness Initial comments: This is a 48-year-old female who presents to the emergency department compl aining of chest pain over the last couple of days. Patient states she is currently having chest pain now she states that it causes some mild shortness of breath. Patient denies any radiation of the pain. States she has some nausea but she thought it was just because maybe she was sick. Patient denied any diaphoretic episode. Patient states she has had an extensive cardiac history with at least a dozen stents. Patient denies any diabetes. Patient denies high blood pressure but she states she does have high cholesterol and a strong family history. - Related Data Home Medications Medication Instructions Recorded Confirmed Omeprazole [PriLOSEC] 40 mg PO DAILY@0700 11/29/16 02/15/24 Atorvastatin [Lipitor] 80 mg PO DAILY@19011/30/16 02/15/24 Divalproex ER [Depakote ER] 1,000 mg PO DAILY@1200 02/06/17 02/15/24 Alendronate Sodium 70 mg PO COHEN@0700 06/29/17 02/15/24 Metoprolol Tartrate [Lopressor] 12.5 mg PO BID@1200,1900 09/25/19 02/15/24 Isosorbide Mononitrate [Isosorbide 30 mg PO DAILY@1000 11/19/19 02/15/24 Mononitrate ER] Spironolactone [Aldactone] 25 mg PO BID@1000,1600 11/19/19 02/15/24 Escitalopram [Lexapro] 20 mg PO DAILY@1900 04/27/20 02/15/24 ALPRAZolam [Xanax] 0.25 mg PO BID PRN 02/12/23 02/15/24 Aspirin EC [Ecotrin Low Dose] 81 mg PO DAILY@1600 02/12/23 02/15/24 Gabapentin [Neurontin] 900 mg PO TID@1000,1600,2200 02/12/23 02/15/24 Sacubitril/Valsartan [Entresto 24 1 tab PO BID@1000,1600 02/12/23 02/15/24 mg-26 mg Tablet] traZODone HCL [Desyrel] 25 mg PO HS@2200 02/12/23 02/15/24 Ezetimibe [Zetia] 10 mg PO DAILY@1000 04/23/23 02/15/24 Albuterol Sulfate [Ventolin HFA] 2 puff INHALATION RT-Q6H PRN 01/25/24 02/15/24 Fluticasone/Umeclidin/Vilanter 1 puff INHALATION RT-DAILY 01/25/24 02/15/24 [Trelegy Ellipta 200-62.5-25] Patient Own Pump 0 bag 01/25/24 oxyCODONE-APAP 5-325MG [Percocet 1 tab PO BID PRN 01/25/24 02/15/24 5-325 mg] Previous Rx's Medication Instructions Recorded Apixaban [Eliquis] 5 mg PO BID #60 tab 01/27/24 Ipratropium-Albuterol Nebulize 3 ml INHALATION RT-QID each 01/27/24 [Duoneb 0.5 mg-3 mg/3 ml Soln] polyethylene glycoL 3350 [Miralax] 17 gm PO DAILY packet 02/19/24 Bumetanide [Bumex] 1 mg PO BID #60 tablet 02/20/24 Allergies Allergy/AdvReac Type Severity Reaction Status Date / Time moxifloxacin HCl Allergy Rash/Hives Verified 07/03/24 15:27 [From Avelox] Review of Systems ROS Statement: Those systems with pertinent positive or pertinent negative responses have been documented in the HPI. ROS Other: All systems not noted in ROS Statement are negative. Past Medical History Past Medical History: Asthma, Coronary Artery Disease (CAD), Chest Pain / Angina, Heart Failure, COPD, Fibromyalgia, GERD/Reflux, Hyperlipidemia, Myocardial Infarction (GA), Musculoskeletal Disorder, Osteoarthritis (OA), Pneumonia Additional Past Medical History / Comment(s): Has Pain Pump and AICD. Ishemic Cardiomyopathy. Hx GA X3 - 2004, 2012, 2017. Hx bronchitis. Chronic back pain, lumbar Degenerative Disc Disease, occasional neck pain, osteoporosis, migraines. Hx UTIs, kidney stones. Vertigo. Last Myocardial Infarction Date:: 2016 History of Any Multi-Drug Resistant Organisms: None Reported Past Surgical History: AICD, Heart Catheterization, Heart Catheterization With Stent, Orthopedic Surgery, Tubal Ligation Additional Past Surgical History / Comment(s): Multiple stents, left hand surgery, pain clinic procedures, [employer] Pain Pump surgically implanted. Past Anesthesia/Blood Transfusion Reactions: No Reported Reaction, Motion Sickness Date of Last Stent Placement:: 08-13-16 Type of Cardiac Device: AICD Device Placement Date:: 2016 [employer]. Past Psychological History: Anxiety, Bipolar, Depression Smoking Status: Current every day smoker Past Alcohol Use History: Occasional Past Drug Use History: Marijuana - Past Family History Mother Family Medical History: Coronary Artery Disease (CAD), Fibromyalgia, Hyperlipidemia Additional Family Medical History / Comment(s): Emotional problems, bipolar. Father Family Medical History: CVA/TIA, Fibromyalgia, Hyperlipidemia, Hypertension, Musculoskeletal Disorder Additional Family Medical History / Comment(s): MS. Sister(s) History Unknown: Yes Family Medical History: Hyperlipidemia General Exam - General Exam Comments Initial Comments: GENERAL: Patient is well-developed and well-nourished. Patient is nontoxic and well- hydrated and is in mild distress. ENT: Neck is soft and supple. No significant lymphadenopathy is noted. Oropharynx is clear. Moist mucous membranes. Neck has full range of motion without eliciting any pain. EYES: The sclera were anicteric and conjunctiva were pink and moist. Extraocular movements were intact and pupils were equal round and reactive to light. Eyelids were unremarkable. PULMONARY: Unlabored respirations. Good breath sounds bilaterally. No audible rales rh onchi or wheezing was noted. CARDIOVASCULAR: There is a regular rate and rhythm without any murmurs gallops or rubs. ABDOMEN: Soft and nontender with normal bowel sounds. SKIN: Skin is clear with no lesions or rashes and otherwise unremarkable. NEUROLOGIC: Patient is alert and oriented x3. Cranial nerves II through XII are grossly intact. Motor and sensory are also intact. Normal speech, volume and content. Symmetrical smile. MUSCULOSKELETAL: Normal extremities with adequate strength and full range of motion. LYMPHATICS: No significant lymphadenopathy is noted PSYCHIATRIC: Normal psychiatric evaluation. Limitations: no limitations Course Vital Signs 07/03/24 07/03/24 07/03/24 15:27 16:30 16:37 Temperature 97.5 F L Pulse Rate 85 71 Pulse Rate [ 79 [employer] ] Respiratory 20 18 Rate Blood Pressure 157/98 141/90 O2 Sat by Pulse 97 95 Oximetry Medical Decision Making - Medical Decision Making EKG is interpreted by myself. First EKG shows sinus rhythm at a rate of 79 bpm. Over the 171 QRS is 123 QT interval is 404 QTc is 439. Patient's EKG Braaksma mild ST segments in V1 V2 and V3 but not enough to be called a STEMI. Second EKG was repeated half an hour later. It was also interpreted by myself. EKG shows a sinus rhythm at 74 bpm [place] interval 183 QRS is 137 QT interval is 429 QTc is 456. Patient's EKG again shows some minimal ST segment ovation V1 V2 and V3 all these elevations have been seen in previous EKGs as has the T wave inversions in the precordial and inferior leads - Lab Data Result diagrams: 07/03/24 16:01 07/03/24 16:01 Lab Results 07/03/24 07/03/24 07/03/24 Range/Units 16:01 16:01 16:01 WBC 5.7 (3.8-10.6) k/uL RBC 5.14 (3.80-5.40) m/uL Hgb 15.3 (11.4-16.0) gm/dL Hct 45.5 (34.0-46.0) % MCV 88.6 (80.0-100.0) fL MCH 29.7 (25.0-35.0) pg MCHC 33.6 (31.0-37.0) g/dL RDW 14.5 (11.5-15.5) % Plt Count 311 (150-450) k/uL MPV 8.0 Neutrophils % 45 % Lymphocytes % 43 % Monocytes % 6 % Eosinophils % 3 % Basophils % 1 % Neutrophils # 2.5 (1.3-7.7) k/uL Lymphocytes # 2.4 (1.0-4.8) k/uL Monocytes # 0.3 (0-1.0) k/uL Eosinophils # 0.2 (0-0.7) k/uL Basophils # 0.0 (0-0.2) k/uL PT 11.0 (10.0-12.5) sec INR 1.0 (<1.2) APTT 25.5 (22.0-30.0) sec Sodium 137 (137-145) mmol/L Potassium 4.0 (3.5-5.1) mmol/L Chloride 107 (98-107) mmol/L Carbon Dioxide 21 L (22-30) mmol/L Anion Gap 9 mmol/L BUN 11 (7-17) mg/dL Creatinine 0.78 (0.52-1.04) mg/dL Est GFR (CKD-EPI)AfAm >90 (>60 ml/min/1.73 sqM) Est GFR (CKD-EPI)NonAf >90 (>60 ml/min/1.73 sqM) Glucose 93 (74-99) mg/dL Calcium 10.0 (8.4-10.2) mg/dL Magnesium 1.9 (1.6-2.3) mg/dL Total Bilirubin 0.9 (0.2-1.3) mg/dL AST 18 (14-36) U/L ALT 18 (4-34) U/L Alkaline Phosphatase 114 (38-126) U/L Troponin I (0.000-0.034) ng/mL Total Protein 8.1 (6.3-8.2) g/dL Albumin 4.8 (3.5-5.0) g/dL 07/03/24 Range/Units 16:01 WBC (3.8-10.6) k/uL RBC (3.80-5.40) m/uL Hgb (11.4-16.0) gm/dL Hct (34.0-46.0) % MCV (80.0-100.0) fL MCH (25.0-35.0) pg MCHC (31.0-37.0) g/dL RDW (11.5-15.5) % Plt Count (150-450) k/uL MPV Neutrophils % % Lymphocytes % % Monocytes % % Eosinophils % % Basophils % % Neutrophils # (1.3-7.7) k/uL Lymphocytes # (1.0-4.8) k/uL Monocytes # (0-1.0) k/uL Eosinophils # (0-0.7) k/uL Basophils # (0-0.2) k/uL PT (10.0-12.5) sec INR (<1.2) APTT (22.0-30.0) sec Sodium (137-145) mmol/L Potassium (3.5-5.1) mmol/L Chloride (98-107) mmol/L Carbon Dioxide (22-30) mmol/L Anion Gap mmol/L BUN (7-17) mg/dL Creatinine (0.52-1.04) mg/dL Est GFR (CKD-EPI)AfAm (>60 ml/min/1.73 sqM) Est GFR (CKD-EPI)NonAf (>60 ml/min/1.73 sqM) Glucose (74-99) mg/dL Calcium (8.4-10.2) mg/dL Magnesium (1.6-2.3) mg/dL Total Bilirubin (0.2-1.3) mg/dL AST (14-36) U/L ALT (4-34) U/L Alkaline Phosphatase (38-126) U/L Troponin I 0.017 (0.000-0.034) ng/mL Total Protein (6.3-8.2) g/dL Albumin (3.5-5.0) g/dL Disposition Clinical Impression: Chest pain Disposition: ADMITTED IP TO THIS [facility] Referrals: Ga Hooper Jr, [Primary Care Provider] - 1-2 days Time of Disposition: 17:02
[2024-07-03] MEDS ORDERED: NITROGLYCERIN SL TABS 0.4 MG TAB SUBLINGUAL PRN (17:02)
[2024-07-03] MEDS: NITROGLYCERIN OINT 1 INCH/GM PACKET TOPICAL SCH (17:16)
[2024-07-03] MEDS ORDERED: ALPRAZolam 0.25 MG TAB PO PRN (20:23)
[2024-07-03] MEDS: oxyCODONE-APAP 5-325MG 1 EACH TAB PO PRN (21:03)
[2024-07-03] MEDS: GABAPENTIN 300 MG CAP PO SCH (21:03)
[2024-07-03] MEDS: APIXABAN 5 MG TAB PO SCH (21:04)
[2024-07-03] MEDS: traZODone HCL 50 MG TAB PO SCH (21:04)
[2024-07-04] MEDS: BUMETANIDE 1 MG TAB PO SCH (08:41)
[2024-07-04] MEDS: PANTOPRAZOLE 40 MG TABLET PO SCH (08:44)
[2024-07-04] MEDS: ISOSORBIDE MONONITRATE ER 15 MG TAB PO SCH (08:44)
[2024-07-04] MEDS: SPIRONOLACTONE 25 MG TAB PO SCH (08:44)
[2024-07-04] MEDS: ALBUTEROL NEBULIZED 2.5 MG/3 ML INHALATION PRN (08:54)
[2024-07-04] MEDS ORDERED: ASPIRIN 325 MG TAB PO SCH (09:00)
[2024-07-04 09:20] LABS: Chol/HDL Ratio 7.29 Ratio; LDL Cholesterol,Calculated 167.7 mg/dL (0.0-131.0)
[2024-07-04] MEDS: METOPROLOL TARTRATE 12.5 MG TAB PO SCH (10:53)
[2024-07-04] MEDS ORDERED: METOPROLOL TARTRATE 12.5 MG TAB PO SCH (12:00)
[2024-07-04] MEDS: metOLazone 2.5 MG TAB PO SCH (12:01)
[2024-07-04] MEDS: EZETIMIBE 10 MG TAB PO SCH (12:15)
[2024-07-04] MEDS: SACUBITRIL/VALSARTAN 24 MG-26 MG TABLET PO SCH ×2 (12:15→20:44)
[2024-07-04] MEDS: DIVALPROEX ER 500 MG TAB.ER.24H PO SCH (12:15)
[2024-07-04] MEDS: oxyCODONE-APAP 5-325MG 1 EACH TAB PO PRN (12:16)
[2024-07-04] MEDS ORDERED: ALPRAZolam 0.25 MG TAB PO PRN (13:45)
--- NOTE | 2024-07-04 13:49 | P.CRDCN ---
History of Present Illness Consult date: 07/04/24 Consult reason: chest pain History of present illness: This is a 48-year-old female patient of Dr. Montoya with past medical history of coronary artery disease status post PCI, severe ischemic cardiomyopathy status post AICD, hypertension, dyslipidemia, overweight, COPD, chronic hypoxic respiratory failure, chronic systolic heart failure, possible apical thrombus on echocardiogram on [facility] 01/26/2024. We have been asked to evaluate the patient for chest pain. Patient states that she developed chest pain on Monday at [facility]. She states it is still hurting but not as bad. She contacted her PCP and Dr. Rodriguez sent her into the hospital for further evaluation. She states she has chest pain in the midsternal area as well as the left shoulder and neck area. Discussed medication changes with the patient and she was reluctant to change beta-adelso but the whole point of change now is to assess her symptoms while she is in the hospital. Also discussed plan for cardiac catheterization tomorrow with Dr. Montoya. She is agreeable to move forward with this. -EKG: Sinus rhythm LVH -Chest x-ray: No acute process -Laboratory studies: CBC within normal limits. Sodium 137, potassium 4, BUN 11 creatinine 0.78. Troponins negative x 3. proBNP 1030. Triglycerides 171, cholesterol 234, LDL 167. -Home cardiac medications: Eliquis 5 mg twice daily, aspirin 81 mg daily, atorvastatin 80 mg daily, Bumex 2 mg twice daily, Zetia 10 mg daily, Lopressor 6.25 mg twice daily at noon and 1900, Entresto 1 tablet twice daily at 10 AM and 7 PM, Aldactone 25 mg twice daily -Cardiac catheterization 01/22/2020: Patent stents to the LAD, left circumflex, RI and RCA -Echocardiogram performed on 01/26/2024: Dilated left ventricle with severe impairment of the left ventricle systolic function with segmental wall motion abnormality consistent with CAD. Possible apical thrombus. Mild to moderate mitral and mild tricuspid regurgitation and mild pulmonary hypertension, moderate aortic regurgitation Review Of Systems: At the time of my exam: CONSTITUTIONAL: Denies fever or chills. HEENT: Denies blurred vision, vision changes, or eye pain. Denies hemoptysis CARDIOVASCULAR: Denies chest pain. Denies orthopnea. Denies PND. Denies palpitations RESPIRATORY: Denies shortness of breath. GASTROINTESTINAL: Denies abdominal pain. Denies nausea or vomiting. HEMATOLOGIC: Denies bleeding disorders. GENITOURINARY: Denies any blood in urine. SKIN: Denies puritis. Denies rash. Physical examination: Gen: This is a 48-year-old obese female in no acute distress VS: reviewed HEENT: Head is atraumatic, normocephalic. Pupils equal, round. Sclerae is anic teric. NECK: Supple. No JVD. LUNGS: Clear to auscultation. No wheezes or rhonchi. No intercostal retractions. HEART: Regular rate and rhythm. Systolic murmur. ABDOMEN: Soft No tenderness. EXTREMITIES: No pedal edema. No calf tenderness. NEUROLOGICAL: Patient is awake, alert and oriented x3. Assessment: Chest pain, rule out obstructive CAD Chronic systolic heart failure Coronary artery disease with prior triple-vessel stenting Ischemic cardiomyopathy status post AICD Hypertension Dyslipidemia Mild to moderate aortic regurgitation Morbid obesity with BMI of 45, down to 35 History of tobacco use, patient quit January 2024 COPD Chronic hypoxic respiratory failure on home oxygen Possible apical thrombus on echocardiogram, on Eliquis Plan: Resume patient's home cardiac medications with the following changes Increase metoprolol to 12.5 mg 3 times daily Hold Eliquis for cardiac catheterization Schedule patient for cardiac catheterization tomorrow with Dr. Montoya N.p.o. after midnight No IV fluids due to cardiomyopathy Further recommendations to follow based upon clinical course Thank you kindly for this consultation. Nurse practitioner note has been reviewed, I agree with documented findings and plan of care. Patient was seen and examined. Past Medical History Past Medical History: Asthma, Coronary Artery Disease (CAD), Chest Pain / Angina , Heart Failure, COPD, Fibromyalgia, GERD/Reflux, Hyperlipidemia, Myocardial Infarction (SC), Musculoskeletal Disorder, Osteoarthritis (OA), Pneumonia Additional Past Medical History / Comment(s): Has Pain Pump and AICD. Ishemic Cardiomyopathy. Hx [place] X3 - 2004, 2012, 2017. Hx bronchitis. Chronic back pain, lumbar Degenerative Disc Disease, occasional neck pain, osteoporosis, migraines. Hx UTIs, kidney stones. Vertigo. Last Myocardial Infarction Date:: 2017 History of Any Multi-Drug Resistant Organisms: None Reported Past Surgical History: AICD, Heart Catheterization, Heart Catheterization With Stent, Orthopedic Surgery, Tubal Ligation Additional Past Surgical History / Comment(s): Multiple stents (pt unable to state how many), left hand surgery, pain clinic procedures, Medtronic Pain Pump surgically implanted. Past Anesthesia/Blood Transfusion Reactions: No Reported Reaction, Motion Sickness Date of Last Stent Placement:: 08-13-16 Type of Cardiac Device: AICD Device Placement Date:: 2016 [employer]. Past Psychological History: Anxiety, Bipolar, Depression Smoking Status: Current every day smoker Past Alcohol Use History: Occasional Additional Past Alcohol Use History / Comment(s): Started smoking in 1988, about 1 ppd, quit 09/21/19, restarted in 2020 quit 2022. No longer drinks alcohol. Past Drug Use History: Marijuana Additional Drug Use History / Comment(s): Medical Marijuana use occasionally. - Past Family History Mother Family Medical History: Coronary Artery Disease (CAD), Fibromyalgia, Hyperlipidemia Additional Family Medical History / Comment(s): Emotional problems, bipolar. Father Family Medical History: CVA/TIA, Fibromyalgia, Hyperlipidemia, Hypertension, Musculoskeletal Disorder Additional Family Medical History / Comment(s): MS. Sister(s) History Unknown: Yes Family Medical History: Hyperlipidemia Medications and Allergies Home Medications Medication Instructions Recorded Confirmed Type Omeprazole [PriLOSEC] 40 mg PO DAILY@0800 11/29/16 07/03/24 History Atorvastatin [Lipitor] 80 mg PO DAILY@1900 11/30/16 07/03/24 History Divalproex ER [Depakote ER] 1,000 mg PO DAILY@1200 02/06/17 07/03/24 History Alendronate Sodium 70 mg PO COHEN@0800 06/29/17 07/03/24 History Metoprolol Tartrate [Lopressor] 6.25 mg PO BID@1200,1900 09/25/19 07/03/24 History Isosorbide Mononitrate [Isosorbide 15 mg PO DAILY@0800 11/19/19 07/03/24 History Mononitrate ER] Spironolactone [Aldactone] 25 mg PO BID@1000,1600 11/19/19 07/03/24 History Escitalopram [Lexapro] 20 mg PO DAILY@1900 04/27/20 07/03/24 History ALPRAZolam [Xanax] 0.25 mg PO BID PRN 02/12/23 07/03/24 History Aspirin EC [Ecotrin Low Dose] 81 mg PO DAILY@1600 07/23/23 12/11/24 History Gabapentin [Neurontin] 900 mg PO TID@1000,1600,2200 02/12/23 07/03/24 History Sacubitril/Valsartan [Entresto 24 1 tab PO DIRECTED 02/12/23 07/03/24 History mg-26 mg Tablet] traZODone HCL [Desyrel] 25 mg PO HS@2200 02/12/23 07/03/24 History Ezetimibe [Zetia] 10 mg PO DAILY@1200 04/23/23 07/03/24 History Albuterol Sulfate [Ventolin HFA] 2 puff INHALATION RT-Q6H PRN 01/25/24 07/03/24 History Patient Own Pump 0 bag 01/25/24 History oxyCODONE-APAP 5-325MG [Percocet 1 tab PO BID PRN 01/25/24 07/03/24 History 5-325 mg] Apixaban [Eliquis] 5 mg PO BID@1000,2200 07/03/24 07/03/24 History Bumetanide [BUMEX] 2 mg PO BID@0800,1200 07/03/24 07/03/24 History Allergies Allergy/AdvReac Type Severity Reaction Status Date / Time moxifloxacin HCl Allergy Rash/Hives Verified 07/03/24 18:09 [From Avelox] Physical Exam Vitals: Vital Signs Temp Pulse Pulse Pulse Resp BP BP 07/04/24 12:19 80 121/90 07/04/24 10:53 98 148/92 07/04/24 09:06 68 07/04/24 08:57 66 07/04/24 07:05 98.2 F 67 16 106/71 07/04/24 02:00 98.3 F 69 17 121/77 07/03/24 19:57 97.6 F 66 17 144/82 07/03/24 18:43 70 18 141/88 07/03/24 16:37 71 18 141/90 07/03/24 16:30 79 07/03/24 15:27 97.5 F L 85 20 157/98 Pulse Ox FiO2 07/04/24 12:19 93 L 07/04/24 10:53 97 07/04/24 09:06 07/04/24 08:57 94 L 21 07/04/24 07:05 94 L 07/04/24 02:00 94 L 07/03/24 19:57 96 07/03/24 18:43 98 07/03/24 16:37 95 07/03/24 16:30 07/03/24 15:27 97 Intake and Output 07/03/24 07/04/24 07/04/24 22:59 06:59 14:59 Intake Total 540 Balance 540 Intake: Oral 540 Other: Voiding Method Toilet Toilet # Voids 1 Weight 88.451 kg Results 07/03/24 16:01 07/03/24 16:01 Cardiac Enzymes 07/03/24 07/03/24 07/03/24 Range/Units 16:01 16:01 19:48 AST 18 (14-36) U/L Troponin I 0.017 0.021 (0.000-0.034) ng/mL 07/04/24 Range/Units 00:06 AST (14-36) U/L Troponin I 0.016 (0.000-0.034) ng/mL Coagulation 07/03/24 Range/Units 16:01 PT 11.0 (10.0-12.5) sec APTT 25.5 (22.0-30.0) sec Lipids 07/04/24 Range/Units 00:06 Triglycerides 171.00 H (0.00-149.00) mg/dL Cholesterol 234.00 H (0.00-200.00) mg/dL HDL Cholesterol 32.10 L (40.00-60.00) mg/dL Cholesterol/HDL Ratio 7.29 Ratio CBC 07/03/24 Range/Units 16:01 WBC 5.7 (3.8-10.6) k/uL RBC 5.14 (3.80-5.40) m/uL Hgb 15.3 (11.4-16.0) gm/dL Hct 45.5 (34.0-46.0) % Plt Count 311 (150-450) k/uL Comprehensive Metabolic Panel 07/03/24 Range/Units 16:01 Sodium 137 (137-145) mmol/L Potassium 4.0 (3.5-5.1) mmol/L Chloride 107 (98-107) mmol/L Carbon Dioxide 21 L (22-30) mmol/L BUN 11 (7-17) mg/dL Creatinine 0.78 (0.52-1.04) mg/dL Glucose 93 (74-99) mg/dL Calcium 10.0 (8.4-10.2) mg/dL AST 18 (14-36) U/L ALT 18 (4-34) U/L Alkaline Phosphatase 114 (38-126) U/L Total Protein 8.1 (6.3-8.2) g/dL Albumin 4.8 (3.5-5.0) g/dL Current Medications Generic Name Dose Route Start Last Admin Trade Name Freq PRN Reason Stop Dose Admin Albuterol Sulfate 2.5 mg 07/03/24 20:23 07/04/24 08:54 Albuterol Nebulized 2.5 Mg/3 Ml INHALATION 2.5 mg RT-Q6H PRN Administration Shortness Of Breath Alprazolam 0.25 mg 07/03/24 20:23 Alprazolam 0.25 Mg Tab PO BID PRN Anxiety Apixaban 5 mg 07/03/24 22:00 07/04/24 08:44 Apixaban 5 Mg Tab PO 5 mg BID@1000,2200 [facility] Administration Protocol Aspirin 81 mg 07/04/24 16:00 Aspirin 81 Mg PO DAILY@1600 [facility] Atorvastatin Calcium 80 mg 07/04/24 19:00 Atorvastatin 80 Mg Tab PO DAILY@1900 [facility] Bumetanide 2 mg 07/04/24 08:00 07/04/24 08:41 Bumetanide 1 Mg Tab PO 2 mg BID@0800,1200 [facility] Administration Divalproex Sodium 1,000 mg 07/04/24 12:00 07/04/24 12:15 Divalproex Er 500 Mg Tab.Er.24h PO 1,000 mg DAILY@1200 [facility] Administration Ezetimibe 10 mg 07/04/24 12:00 07/04/24 12:15 Ezetimibe 10 Mg Tab PO 10 mg DAILY@1200 [facility] Administration Escitalopram Oxalate 20 mg 07/04/24 19:00 Escitalopram 20 Mg Tab PO DAILY@1900 [facility] Gabapentin 900 mg 07/03/24 22:00 07/04/24 08:42 Gabapentin 300 Mg Cap PO 900 mg TID@1000,1600,2200 [facility] Administration Isosorbide Mononitrate 15 mg 07/04/24 08:00 07/04/24 08:44 Isosorbide Mononitrate Er 15 Mg Tab PO 15 mg DAILY@0800 [facility] Administration Metolazone 2.5 mg 07/04/24 09:15 07/04/24 12:01 Metolazone 2.5 Mg Tab PO Not Given Q48H [place] Metoprolol Tartrate 12.5 mg 07/04/24 09:15 07/04/24 10:53 Metoprolol Tartrate 12.5 Mg Tab PO 12.5 mg TID [facility] Administration Nitroglycerin 0.4 mg 07/03/24 17:02 Nitroglycerin Sl Tabs 0.4 Mg Tab SUBLINGUAL Q5M PRN Chest Pain Nitroglycerin 1 inch 07/03/24 18:00 07/04/24 12:01 Nitroglycerin Oint 1 Inch/Gm Packet TOPICAL Not Given Q6HR [facility] Patient's Own ( 70 mg 07/07/24 08:00 Alendronate Sodium [ PO Alendronate Sodium] COHEN@0800 [facility] 70 Mg Tablet) Oxycodone/Acetaminophen 1 each 07/04/24 10:50 07/04/24 12:16 Oxycodone-Apap 5-325mg 1 Each Tab PO 1 each Q8H PRN Administration Pain Pantoprazole Sodium 40 mg 07/04/24 08:00 07/04/24 08:44 Pantoprazole 40 Mg Tablet PO 40 mg DAILY@0800 [facility] Administration Sacubitril/Valsartan 1 each 07/04/24 19:00 Sacubitril/Valsartan 24 Mg-26 Mg Tablet PO Q48H [facility] Sacubitril/Valsartan 1 each 07/04/24 10:00 07/04/24 12:15 Sacubitril/Valsartan 24 Mg-26 Mg Tablet PO 1 each Q48H [facility] Administration Spironolactone 25 mg 07/04/24 10:00 07/04/24 08:44 Spironolactone 25 Mg Tab PO 25 mg BID@1000,1600 [facility] Administration Trazodone HCl 25 mg 07/03/24 22:00 07/03/24 21:04 Trazodone Hcl 50 Mg Tab PO 25 mg HS@2200 [facility] Administration Intake and Output 07/03/24 07/04/24 07/04/24 22:59 06:59 14:59 Intake Total 540 Balance 540 Intake: Oral 540 Other: Voiding Method Toilet Toilet # Voids 1 Weight 88.451 kg 07/03/24 16:01 07/03/24 16:01
[2024-07-04] MEDS: ASPIRIN 81 MG PO SCH (16:01)
[2024-07-04] MEDS: ATORVASTATIN 80 MG TAB PO SCH (18:54)
[2024-07-04] MEDS: ESCITALOPRAM 20 MG TAB PO SCH (18:54)
[2024-07-05 05:35] LABS: Glucose,Whole Blood 110 mg/dL (70-110)
[2024-07-05] MEDS: ATORVASTATIN 80 MG TAB PO ONE (06:31)
[2024-07-05] MEDS: ASPIRIN 325 MG TAB PO ONE (06:31)
[2024-07-05] MEDS ORDERED: HEPARIN SODIUM,PORCINE 10,000 UNIT in SODIUM CHLORIDE 0.9% 1,000 ML IRRIGATION PRN (07:00)
[2024-07-05] MEDS ORDERED: HEPARIN SODIUM,PORCINE (1 ML) 2,500 UNIT in SODIUM CHLORIDE 0.9% 250 ML IRRIGATION PRN (07:00)
[2024-07-05] MEDS: LIDOCAINE 1% INJ 10MG/ML (20 ML MDV) SQ ONE (07:54)
[2024-07-05] MEDS: VERAPAMIL SYRINGE (5 MG/10 ML) INTRAARTER ONE (07:55)
[2024-07-05] MEDS: MIDAZOLAM 2 MG/2 ML VIAL IVP ONE (07:57)
[2024-07-05] MEDS: HEPARIN SODIUM 1,000 UN/ML (10ML VL) IVP ONE (07:57)
[2024-07-05] MEDS: fentaNYL (PF) 50 MCG/ML 2 ML AMP IVP ONE (08:00)
[2024-07-05] MEDS: SODIUM CHLORIDE 0.9% 1,000 ML IV ONE (08:00)
[2024-07-05] MEDS: IOPAMIDOL-370 100ML BTL INJ ONE (08:15)
[2024-07-05] MEDS ORDERED: RX INFO: IV CONTRAST WAS GIVEN 1 EACH MISC MISCELLANE PRN (08:22)
--- NOTE | 2024-07-05 08:26 | P.PCN ---
Date of Procedure: 07/05/24 Operative Findings: CARDIAC CATHETERIZATION PERFORMING PHYSICIAN: John Montoya MD, RPVI PROCEDURE PERFORMED: 1. Selective right and left coronary angiogram and left heart catheterization 2. IFR of the RCA 3. Ultrasound-guided access of the right radial artery INDICATION: Chest discomfort concerning for angina COMPLICATION: None APPROACH: Right radial artery LEVEL OF SEDATION: Moderate with a sedation length of 26 minutes PROCEDURE DESCRIPTION: After obtaining an informed consent, the patient was brought to cardiac hoisting laborer. Local anesthesia was performed using lidocaine subcutaneously. The right radial artery was cannulated using Seldinger technique, the guidewire passed easily, following that we advanced a 5-Moroccan sheath dilator assembly, the wire and dilator were removed and sheath was flushed. Following that, 2 mg of verapamil along with 5000 unit heparin were given. Selective right and left coronary angiogram using a 6-Moroccan JR4 and JL 3.5 catheters. Following that we did left heart catheterization using 6-Moroccan pigtail catheter. After that we decided to do an IFR of the RCA with after zeroing Dobler wire and equalizing between the Dobler wire and guiding catheter which was JR4 guiding catheter the RCA was engaged and subsequently it was wired using the Doppler wire with an IFR and that came in to be at 0.85. The procedure was completed there was no complication. SELECTIVE CORONARY ANGIOGRAM: The right coronary artery: Large caliber vessel and a dominant vessel with intermediate to severe lesion in the midportion documented to be flow-limiting by Doppler wire Left main: Has mild disease only The left circumflex: Large caliber vessel nondominant vessel with no evidence of high-grade stenosis and gives rise into an OM 1 and OM 2 appears to have mild disease only. Also the ramus intermedius is a large-caliber vessel with mild disease only The left anterior descending artery: Is occluded with in-stent occlusion and fills faintly by ipsilateral collateral. HEMODYNAMICS: LVEDP was 8 to 10 mmHg with no significant gradient across aortic valve CONCLUSION: 1. Chronic total occlusion of the LAD which is in-stent occlusion of the long segment. 2. Intermediate to severe disease involving the mid RCA documented to be flow- limiting by Doppler wire POSTPROCEDURE MANAGEMENT: Evaluate the patient for CABG
[2024-07-05] MEDS: SODIUM CHLORIDE 0.9% 1,000 ML IV SCH (09:16)
--- NOTE | 2024-07-05 10:37 | P.HPIM ---
History of Present Illness H&P Date: 07/04/24 Chief Complaint: CP This is a 48-year-old female with past medical history significant for chronic hypoxic respiratory failure wears 2 L nasal cannula at home,COPD, ischemic ca rdiomyopathy, EF 25%, AICD, coronary artery disease with multiple previous PCI/stenting, hyperlipidemia, hypertension, chronic pain with pain pump, COPD , systolic CHF, apical thrombus 01/26/2024- anticoagulated on Eliquis, prior nicotine dependence--a heavy 2 to 3 pack a day smoker for several years and multiple other medical issues presented to the ER with complaints of chest pain. Reports over the last 3 weeks," felt ill, fatigued," did not consume any medication remedies. On Monday at [facility] developed left sided chest pain nonradiating , spontaneously subsided. Proceeded to see PCP Dr. Rodriguez on Monday. EKG performed reported as abnormal and patient was referred to the ER. Troponins negative x 3, proBNP 1030. evaluated by cardiology, EKGs reviewed and patient is scheduled for cardiac catheterization tomorrow. Medication changes were also recommended, but patient is reluctant due to history of prior hypotensive events with multiple med changes. chest x-ray reported nonacute. CBC and chemistry unremarkable. Triglycerides 171, cholesterol 234, LDL 167, HDL 32. Review of Systems ROS Statement: Those systems with pertinent positive or pertinent negative responses have been documented in the HPI. ROS Other: All systems not noted in ROS Statement are negative. Past Medical History Past Medical History: Asthma, Coronary Artery Disease (CAD), Chest Pain / Angina, Heart Failure, COPD, Fibromyalgia, GERD/Reflux, Hyperlipidemia, Myocardial Infarction (PA), Musculoskeletal Disorder, Osteoarthritis (OA), Pneumonia Additional Past Medical History / Comment(s): Has Pain Pump and AICD. Ishemic Cardiomyopathy. Hx [place] X3 - 2004, 2012, 2017. Hx bronchitis. Chronic back pain, lumbar Degenerative Disc Disease, occasional neck pain, osteoporosis, migraines. Hx UTIs, kidney stones. Vertigo. Last Myocardial Infarction Date:: 2017 History of Any Multi-Drug Resistant Organisms: None Reported Past Surgical History: AICD, Heart Catheterization, Heart Catheterization With Stent, Orthopedic Surgery, Tubal Ligation Additional Past Surgical History / Comment(s): Multiple stents (pt unable to state how many), left hand surgery, pain clinic procedures, Medtronic Pain Pump surgically implanted. Past Anesthesia/Blood Transfusion Reactions: No Reported Reaction, Motion Sickness Date of Last Stent Placement:: 08-13-16 Type of Cardiac Device: AICD Device Placement Date:: 2016 [employer]. Past Psychological History: Anxiety, Bipolar, Depression Smoking Status: Current every day smoker Past Alcohol Use History: Occasional Additional Past Alcohol Use History / Comment(s): Started smoking in 1988, about 1 ppd, quit 09/21/19, restarted in 2020 quit 2022. No longer drinks alcohol. Past Drug Use History: Marijuana Additional Drug Use History / Comment(s): Medical Marijuana use occasionally. - Past Family History Mother Family Medical History: Coronary Artery Disease (CAD), Fibromyalgia, Hyperlipidemia Additional Family Medical History / Comment(s): Emotional problems, bipolar. Father Family Medical History: CVA/TIA, Fibromyalgia, Hyperlipidemia, Hypertension, Musculoskeletal Disorder Additional Family Medical History / Comment(s): MS. Sister(s) History Unknown: Yes Family Medical History: Hyperlipidemia Medications and Allergies Home Medications Medication Instructions Recorded Confirmed Type Omeprazole [PriLOSEC] 40 mg PO DAILY@0800 11/29/16 07/03/24 History Atorvastatin [Lipitor] 80 mg PO DAILY@1900 11/30/16 07/03/24 History Divalproex ER [Depakote ER] 1,000 mg PO DAILY@1200 02/06/17 07/03/24 History Alendronate Sodium 70 mg PO COHEN@0800 06/29/17 07/03/24 History Metoprolol Tartrate [Lopressor] 6.25 mg PO BID@1200,1900 09/25/19 07/03/24 History Isosorbide Mononitrate [Isosorbide 15 mg PO DAILY@0800 11/19/19 07/03/24 History Mononitrate ER] Spironolactone [Aldactone] 25 mg PO BID@1000,1600 11/19/19 07/03/24 History Escitalopram [Lexapro] 20 mg PO DAILY@1900 04/27/20 07/03/24 History ALPRAZolam [Xanax] 0.25 mg PO BID PRN 02/12/23 07/03/24 History Aspirin EC [Ecotrin Low Dose] 81 mg PO DAILY@1600 02/12/23 07/03/24 History Gabapentin [Neurontin] 900 mg PO TID@1000,1600,2200 02/12/23 07/03/24 History Sacubitril/Valsartan [Entresto 24 1 tab PO DIRECTED 02/12/23 07/03/24 History mg-26 mg Tablet] traZODone HCL [Desyrel] 25 mg PO HS@2200 02/12/23 07/03/24 History Ezetimibe [Zetia] 10 mg PO DAILY@1200 04/23/23 07/03/24 History Albuterol Sulfate [Ventolin HFA] 2 puff INHALATION RT-Q6H PRN 01/25/24 07/03/24 History Patient Own Pump 0 bag 01/25/24 History oxyCODONE-APAP 5-325MG [Percocet 1 tab PO BID PRN 01/25/24 07/03/24 History 5-325 mg] Apixaban [Eliquis] 5 mg PO BID@1000,2200 07/03/24 07/03/24 History Bumetanide [BUMEX] 2 mg PO BID@0800,1200 07/03/24 07/03/24 History Allergies Allergy/AdvReac Type Severity Reaction Status Date / Time moxifloxacin HCl Allergy Rash/Hives Verified 07/03/24 18:09 [From Avelox] Physical Exam Vitals: Vital Signs Temp Pulse Pulse Pulse Resp BP BP 07/04/24 09:06 68 07/04/24 08:57 66 07/04/24 07:05 98.2 F 67 16 106/71 07/04/24 02:00 98.3 F 69 17 121/77 07/03/24 19:57 97.6 F 66 17 144/82 07/03/24 18:43 70 18 141/88 07/03/24 16:37 71 18 141/90 07/03/24 16:30 79 07/03/24 15:27 97.5 F L 85 20 157/98 Pulse Ox FiO2 07/04/24 09:06 07/04/24 08:57 94 L 21 07/04/24 07:05 94 L 07/04/24 02:00 94 L 07/03/24 19:57 96 07/03/24 18:43 98 07/03/24 16:37 95 07/03/24 16:30 07/03/24 15:27 97 Intake and Output 12/11/24 12/12/24 12/12/24 22:59 06:59 14:59 Intake Total 540 Balance 540 Intake: Oral 540 Other: Voiding Method Toilet Toilet # Voids 1 Weight 88.451 kg PHYSICAL EXAM: VITAL SIGNS: [As above] GENERAL: Morbidly obese, alert and oriented x 3, sitting up in bed, no acute distress HEENT: Atraumatic, normocephalic .conjunctivae normal. eyes normal. Sclera anicteric. NECK: Supple, no JVD. CARDIOVASCULAR: S1, S2 regular. Systolic murmur RESPIRATION: Unlabored, equal air entry, essentially clear, bilateral lungs diminished. ABDOMEN: Soft, nontender . No guarding. no masses palpable. Positive bowel sounds LEGS: No edema, no clubbing or cyanosis NERVOUS SYSTEM: Cranial N 2-12 grossly normal.No focal deficits. Skin: Warm and dry, no rash. Results CBC & Chem 7: 07/03/24 16:01 07/03/24 16:01 Labs: Abnormal Lab Results - Last 24 Hours (Table) 07/03/24 07/04/24 Range/Units 16:01 00:06 Carbon Dioxide 21 L (22-30) mmol/L Triglycerides 171.00 H (0.00-149.00) mg/dL Cholesterol 234.00 H (0.00-200.00) mg/dL LDL Cholesterol, Calc 167.7 H (0.0-131.0) mg/dL HDL Cholesterol 32.10 L (40.00-60.00) mg/dL Thrombosis Risk Factor Assmnt - Choose All That Apply Any of the Below Risk Factors Present?: Yes Each Factor Represents 1 point: Abnormal pulmonary function (COPD), Age 41-60 years, Obesity (BMI >25) Thrombosis Risk Factor Assessment Total Risk Factor Score: 3 Thrombosis Risk Factor Assessment Level: Moderate Risk Assessment and Plan Assessment: Chest pain, troponins negative x 3, cardiac catheterization pending Chronic hypoxic and hypercapnic respiratory failure, wears 2 L nasal cannula O2 at home Chronic obstructive pulmonary disease History of apical thrombus maintained on anticoagulation Chronic systolic CHF History of ischemic cardiomyopathy, with ejection fraction of 25%, status post AICD implantation Mild to moderate aortic regurgitation Coronary artery disease, with history of multiple PCI/stenting Hyperlipidemia Chronic pain, with implanted pain pump Recent former nicotine dependent Morbid obesity, BMI 36 Plan: Continue on current medication resume ,monitoring and symptomatic treatment. Patient is scheduled for cardiac catheterization tomorrow. The impression and plan of care has been dictated as directed. : I performed a history and examination of this patient, discussed the same with the dictator. I agree with the dictator's note ,documented as a scribe. Any additional findings or plans will be noted.
[2024-07-05] MEDS: NICOTINE 21MG/24HR PATCH TRANSDERM SCH (11:06)
[2024-07-05] MEDS: METOPROLOL TARTRATE 12.5 MG TAB PO SCH (12:11)
--- NOTE | 2024-07-05 13:02 | P.GSCN ---
History of Present Illness Consult date: 07/05/24 Reason for Consult: Coronary artery disease Requesting physician: John Montoya History of present illness: This is a 48-year-old female patient who follows on an outpatient basis with Dr. Rodriguez for her primary care and with Dr. Montoya for her cardiology care. She has a past medical history significant for coronary artery disease status post PCI, myocardial infarction in 2016, severe ischemic cardiomyopathy status post AICD placement in 2016 and a recent transthoracic 2D echocardiogram showing an ejection fraction of 20 to 25%, hypertension, dyslipidemia, obesity with a BMI of 35.7 kg/m, COPD, pneumonia in December 2023, chronic hypoxic respiratory failure with home oxygen use 2 L nasal cannula with recent cessation of oxygen use in May 2024, chronic systolic congestive heart failure, history of possible apical thrombus on transthoracic 2D echocardiogram completed in January 2024, on Eliquis for anticoagulation, chronic ongoing tobacco dependence smokes 1 pack of cigarettes per day, daily marijuana use edibles, fibromyalgia, bipolar disorder, degenerative disc disease, has a pain pump, osteoporosis, and a family history of early onset coronary artery disease with her mom being diagnosed in her mid to late 40s with history of coronary artery bypass grafting surgery. The patient reports she has not been feeling well for the past 2 weeks with complaints of nausea, diaphoretic, watery diarrhea, and muscle aches. The patient also reports an episode of chest pain on Monday which lasted about 10 minutes. She denies any vomiting, hematemesis, hemoptysis, cough, headache, visual disturbances, constipation, palpitations, presyncope or syncope. The patient also reports that she has had blood clots in her watery stool and states she has had problems with hemorrhoids. On Wednesday, July 03, 2024 she presented to her primary care office with the above mentioned complaints. Subsequently a twelve-lead EKG was completed with some abnormal findings and was subsequently recommended to present to the emergency department here at [facility]. In the emergency department a chest x-ray was completed which showed no acute cardiopulmonary process, laboratory results showed a WBC count of 5.7, hemoglobin 15.3, hematocrit 45.5, platelets 311, PT 11.0, INR 1.0, PTT 25.5, sodium 137, potassium 4.0, chloride 107, CO2 21, BUN 11, creatinine 0.78, glucose 93, calcium 10.0, magnesium 1.9, AST 18, ALT 18, serial troponins were within normal range, proBNP 1030, triglycerides 171, cholesterol 234, LDL 167.7, and HDL 32.10. A twelve-lead EKG was completed which showed normal sinus rhythm heart rate 71 bpm with left ventricular hypertrophy. Due to the patient's presenting symptoms and history of coronary artery disease with previous PCI, cardiology was consulted and recommended the patient undergo a cardiac catheterization which was completed today. The heart catheterization demonstrated a chronic total occlusion of the LAD with in-stent occlusion of the long segment, intermediate to severe disease involving the mid right coronary artery in the midportion. A consult was placed to cardiothoracic surgery due to the findings on the cardiac catheterization for further evaluation and treat recommendations including myocardial vascularization surgery. Review of Systems A review of systems was completed and was negative except as mentioned in the HPI. Past Medical History Past Medical History: Asthma, Coronary Artery Disease (CAD), Chest Pain / Angina, Heart Failure (Chronic systolic), COPD, Fibromyalgia, GERD/Reflux, Hyperlipidemia, Hypertension, Myocardial Infarction (CO), Musculoskeletal Disorder, Osteoarthritis (OA), Pneumonia Additional Past Medical History / Comment(s): Has Pain Pump and AICD. Ishemic Cardiomyopathy. Hx CO X3 - 2004, 2012, 2017. Hx bronchitis. Chronic back pain, lumbar Degenerative Disc Disease, occasional neck pain, osteoporosis, migraines. Hx UTIs, kidney stones. Vertigo. Last Myocardial Infarction Date:: 2016 History of Any Multi-Drug Resistant Organisms: None Reported Past Surgical History: AICD, Heart Catheterization, Heart Catheterization With Stent, Orthopedic Surgery, Tubal Ligation Additional Past Surgical History / Comment(s): Multiple stents (pt unable to state how many), left hand surgery, pain clinic procedures, [employer] Pain Pump surgically implanted. Past Anesthesia/Blood Transfusion Reactions: No Reported Reaction, Motion Sickness Date of Last Stent Placement:: 08-13-16 Type of Cardiac Device: AICD Device Placement Date:: 2016 [employer]. Past Psychological History: Anxiety, Bipolar, Depression Smoking Status: Current every day smoker Past Alcohol Use History: Occasional Additional Past Alcohol Use History / Comment(s): Started smoking in 1988, about 1 ppd, quit 09/21/19, restarted in 2020 quit 2022. No longer drinks alcohol. Past Drug Use History: Marijuana Additional Drug Use History / Comment(s): Medical Marijuana use occasionally. - Past Family History Mother Family Medical History: Coronary Artery Disease (CAD), Fibromyalgia, Hyperlipidemia Additional Family Medical History / Comment(s): Emotional problems, bipolar. Father Family Medical History: CVA/TIA, Fibromyalgia, Hyperlipidemia, Hypertension, Musculoskeletal Disorder Additional Family Medical History / Comment(s): MS. Sister(s) History Unknown: Yes Family Medical History: Hyperlipidemia Medications and Allergies Home Medications Medication Instructions Recorded Confirmed Type Omeprazole [PriLOSEC] 40 mg PO DAILY@0800 11/29/16 07/03/24 History Atorvastatin [Lipitor] 80 mg PO DAILY@1900 11/30/16 07/03/24 History Divalproex ER [Depakote ER] 1,000 mg PO DAILY@1200 02/06/17 07/03/24 History Alendronate Sodium 70 mg PO COHEN@0800 06/29/17 07/03/24 History Metoprolol Tartrate [Lopressor] 6.25 mg PO BID@1200,1900 09/25/19 07/03/24 His tory Isosorbide Mononitrate [Isosorbide 15 mg PO DAILY@0800 11/19/19 07/03/24 History Mononitrate ER] Spironolactone [Aldactone] 25 mg PO BID@1000,1600 11/19/19 07/03/24 History Escitalopram [Lexapro] 20 mg PO DAILY@1900 04/27/20 07/03/24 History ALPRAZolam [Xanax] 0.25 mg PO BID PRN 02/12/23 07/03/24 History Aspirin EC [Ecotrin Low Dose] 81 mg PO DAILY@1600 02/12/23 07/03/24 History Gabapentin [Neurontin] 900 mg PO TID@1000,1600,0 02/12/23 07/03/24 History Sacubitril/Valsartan [Entresto 24 1 tab PO DIRECTED 02/12/23 07/03/24 History mg-26 mg Tablet] traZODone HCL [Desyrel] 25 mg PO HS@2200 02/12/23 07/03/24 History Ezetimibe [Zetia] 10 mg PO DAILY@1200 04/23/23 07/03/24 History Albuterol Sulfate [Ventolin HFA] 2 puff INHALATION RT-Q6H PRN 01/25/24 07/03/24 History Patient Own Pump 0 bag 01/25/24 History oxyCODONE-APAP 5-325MG [Percocet 1 tab PO BID PRN 01/25/24 07/03/24 History 5-325 mg] Apixaban [Eliquis] 5 mg PO BID@1000,2200 07/03/24 07/03/24 History Bumetanide [BUMEX] 2 mg PO BID@0800,1200 07/03/24 07/03/24 History Allergies Allergy/AdvReac Type Severity Reaction Status Date / Time moxifloxacin HCl Allergy Rash/Hives Verified 07/03/24 18:09 [From Avelox] Surgical - Exam Vital Signs Temp Pulse Resp BP Pulse Ox 97.5 F L 85 20 157/98 97 07/03/24 15:27 07/03/24 15:27 07/03/24 15:27 07/03/24 15:27 07/03/24 15:27 - General well developed, well nourished, no distress, no pain, chronically ill, obese - Eyes PERRL, normal ocular movement, no pale, no icteric - ENT normal pinna, normal nares, normal mucosa, no hearing loss, no congestion, poor correction - Neck Neck is supple, no lymphadenopathy. no masses, no bruits, trachea midline, no venous distension - Respiratory Lung sounds are essentially clear throughout, no wheezes, rhonchi or crackles. Respirations are symmetrical and nonlabored. Oxygen saturations 94% on room air. - Cardiovascular Regular rhythm and rate. S1 and S2 present, negative for S3, gallop or murmur. - Abdomen Abdomen is soft, nontender and nondistended. Active bowel sounds present all 4 abdominal quadrants. No guarding or rigidity. No organomegaly appreciated. - Genitourinary Deferred - Rectum Deferred - Integumentary Skin is warm and dry. No clubbing or cyanosis is present. no rash, no growths, no abnormal pigmentation - Neurologic No focal deficits. - Musculoskeletal Moves all 4 extremities with equal strength bilateral. - Psychiatric oriented to time, oriented to person, oriented to place, speech is normal, memory intact Results - Labs 07/03/24 16:01 07/03/24 16:01 - Imaging EKG: image reviewed Additional studies: Cardiac catheterization results reviewed Assessment and Plan Assessment: Coronary artery disease with history of PCI Chronic systolic heart failure with an ejection fraction of 20 to 25% on transthoracic 2D echocardiogram in January 2024 Ischemic cardiomyopathy status post AICD placement in 2016 Myocardial infarction in 2017 Possible left ventricular mural thrombus seen on transthoracic 2D echocardiogram in January 2024 Hypertension Hyperlipidemia COPD Recent pneumonia in December 2023 Chronic hypoxic respiratory failure with an occasional home oxygen use 2 L nasal cannula, has not used in 1 month Morbid obesity with a BMI of 35.7 kg/m Chronic ongoing tobacco dependence, smokes 1 pack of cigarettes per day Daily marijuana use, edibles Bipolar disorder Depression Anxiety Fibromyalgia Degenerative disc disease, pain pump Plan: The patient was seen and examined at her bedside on the 6 floor cardiac observation unit. The patient's daughter is present at her bedside. The patient currently denies any complaints of pain or shortness of breath at this time. Her chart and diagnostics were reviewed. Her case will be discussed in detail with Dr. Jamal Adler from cardiothoracic surgery. The usual course of myocardial vascularization surgery was discussed with the patient. Preoperative teaching and preoperative testing has been initiated. Once the patient is able to ambulate a 5 m walk test will be completed with the patient. A clinical frailty score was calculated which equaled 3. Once her preoperative testing has been completed and results obtained and STS risk or will be calculated and discussed with the patient. Due to the patient's history of possible left ventricular thrombus a transthoracic 2D echocardiogram has been ordered. If the patient was deemed to be a surgical candidate she would have to be off her Eliquis for at least 72 hours. Continue to optimize medical management with aspirin, statin and beta-adelso. Medical management of other comorbidities per primary care and cardiology services. More recommendations to follow based on patient's clinical course and once her preoperative testing has been completed and obtained. Thank you Dr. Montoya for this consult and we look forward to working with you in the care of this patient. I have personally seen and examined the patient, performed the documentation and the assessment and plan as written. Number of minutes spent on the visit: 30. CYNTHIA Mark
--- NOTE | 2024-07-05 13:36 | US ---
EXAMINATION TYPE: US vein mapping BILAT DATE OF EXAM: 07/05/2024 1:12 PM COMPARISON: NONE CLINICAL INDICATION: Female, 48 years old with history of PreOp Cardiac Surgery; , Preop- Cardiac Verónica david TECHNIQUE: Grayscale and color Doppler imaging of the lower extremity venous system. SIDE PERFORMED: Bilateral FINDINGS: DUPLEX FINDINGS: Greater Saphenous: Color flow seen Lesser Saphenous: Color flow seen Measurements in mm: Right Greater Saphenous: Groin: 9.2x8.8 mm High Thigh: 5.1x4.5 mm Mid Thigh: 4.1x5.0 mm Above Knee: 4.8x5.3 mm Knee: 4.3x4.3 mm Below Knee: 3.3x3.7 mm Mid Calf: 3.9x4.5 mm At Ankle: 3.8x3.8 mm Left Greater Saphenous: Groin: 5.2x6.7 mm High Thigh: 4.0x4.3 mm Mid Thigh: 4.1x5.4 mm Above Knee: 3.7x4.9 mm Knee: 3.8x5.1 mm Below Knee: 3.5x4.6 mm Mid Calf: 3.3x3.8 mm At Ankle: 3.4x5.0 mm IMPRESSION: 1. No evidence for occlusion. 2. GSV measurements listed above. 3. Performing surgeon to determine viability as conduit. [facility], , 07/05/2024 1:33 PM
--- NOTE | 2024-07-05 13:36 | US ---
EXAMINATION TYPE: Pre-Operative Non-Invasive Evaluation of the hand for Potential Radial Artery Antoni , Measurements only DATE OF EXAM: 07/05/2024 1:12 PM CLINICAL INDICATION: Female, 48 years old with history of Pre-Op Cardiac Surgery; , Preop- Cardiac Wells rgery TECHNIQUE:Grayscale and color Doppler imaging of the radial artery(s) SIDE PERFORMED: Left FINDINGS: Dominant hand: Right Duplex Findings: Radial Artery: Color flow seen Measurements in mm, transverse view: Left Radial Proximal: 2.9x3.2 mm Mid: 2.7x2.5 mm Distal: 2.6x3.0 mm No evidence for occlusion. IMPRESSION: 1. No evidence for vascular occlusion. 2. Measurements as described above. [facility], , 07/05/2024 1:34 PM
--- NOTE | 2024-07-05 13:37 | US ---
EXAMINATION TYPE: US carotid duplex BILAT DATE OF EXAM: 07/05/2024 COMPARISON: NONE CLINICAL INDICATION: Female, 48 years old with history of Pre-Op Cardiac Surgery,Ankle Brachial Index (TIARRA) ; Additional History: pre open heart TECHNIQUE: Grayscale, color Doppler and spectral Doppler evaluation of the bilateral carotid systems and vertebral arteries. Indirect Doppler criteria was utilized. FINDINGS: EXAM MEASUREMENTS: RIGHT: Peak Systolic Velocity (PSV) cm/sec ----- Right CCA: 129.0 ----- Right ICA: 98.7 ----- Right ECA: 94.6 ICA/CCA ratio: 0.8 RIGHT: End Diastole cm/sec ----- Right CCA: 20.1 ----- Right ICA: 34.0 ----- Right ECA: 14.7 LEFT: Peak Systolic Velocity (PSV) cm/sec ----- Left CCA: 88.6 ----- Left ICA: 92.3 ----- Left ECA: 184.0 ICA/CCA ratio: 1.0 LEFT: End Diastole cm/sec ----- Left CCA: 15.6 ----- Left ICA: 28.9 ----- Left ECA: 14.8 VERTEBRALS (direction of flow): Right Vertebral: Antegrade Left Vertebral: Antegrade Rhythm: Normal WINDOWS 7 DEPLOYMENT LEAD NOTES: Mild homogeneous plaque seen, with no stenosis Color Doppler imaging shows patency with blood flow throughout the carotid artery. Spectral waveforms are within normal limits. IMPRESSION: Right: No hemodynamically significant stenosis. Left: No hemodynamically significant stenosis. Criteria for Assigning % of Stenosis / Diameter reduction (Estimation based on the indirect measurements of the internal carotid artery velocities (ICA PSV). 1. Normal (no stenosis)=ICA PSV < 125 cm/s: ratio < 2.0: ICA EDV<40 cm/s. 2. Less than 50% stenosis=ICA PSV < 125 cm/s: ratio < 2.0: ICA EDV<40 cm/s. 3. 50 to 69% stenosis=ICA PSV of 125 to 230 cm/s: ration 2.0 ? 4.0: ICA EDV 40-100 cm/s. 4. Greater than 70% stenosis to near occlusion= ICA PSV > 230 cm/s: ratio > 4.0: ICA EDV > 100 cm/s. 5. Near occlusion= ICA PSV velocities may be low or undetectable: variable ratio and ICA EDV. 6. Total occlusion=unable to detect flow. [facility], , 07/05/2024 1:35 PM
--- NOTE | 2024-07-05 14:08 | CT ---
EXAMINATION TYPE: CT chest wo con CT DLP: 614.70 mGycm, Automated exposure control for dose reduction was used. DATE OF EXAM: 07/05/2024 1:52 PM COMPARISON: CTA chest 01/25/2024 CLINICAL INDICATION:Female, 48 years old with history of Evaluate aorta, preop cardiac surgery; PHH, evaluate aorta, preop cardiac sx TECHNIQUE: Multiple axial images were obtained through the chest without IV contrast. Lack of IV or o ral contrast limits evaluation of solid and hollow organ viscera. . Coronal and sagittal reformats re viewed. FINDINGS: LUNGS/ PLEURA: No pleural effusion, pneumothorax, or focal consolidation. AIRWAY: Patent and unremarkable.. HEART: Size within normal limits.Left chest wall single-lead cardiac device determining in the right ventricle. No pericardial effusion. Severe three-vessel coronary artery calcifications. MEDIASTINUM: No gross evidence of adenopathy. VASCULATURE: No aortic aneurysm. Four-vessel aortic arch. Minimal atherosclerotic calcification of t he aortic arch and its branches. MUSCULOSKELETAL: No acute osseous abnormalities SOFT TISSUES/LYMPH NODES: Unremarkable. LOWER NECK: No significant findings. UPPER ABDOMEN: Nonobstructive right renal 5 lumbar calculus. IMPRESSION: 1. No acute thoracic process. 2. Severe three-vessel coronary artery calcifications. 3. Minimal atherosclerotic calcification of the aortic arch and its branches. [facility], , 07/05/2024 2:05 PM
--- NOTE | 2024-07-05 15:29 | US ---
EXAMINATION TYPE: US arterial LE single level DATE OF EXAM: 07/05/2024 2:49 PM COMPARISONS: None. CLINICAL INDICATION: Female, 48 years old with history of Ankle Brachial Index (TIARRA) ; pre open heart TECHNIQUE: Systolic pressures were taken of the upper and lower extremity arteries with ankle-brachia l indices and toe brachial indices calculated bilaterally. History of: pre open heart FINDINGS: Doppler Waveforms: Right: Multiphasic Left: Multiphasic Brachial Artery systolic pressure: Right: radial cath site Left: 115 Posterior Tibial artery systolic pressure: Right: 118 Left: 122 Dorsalis Pedis artery systolic pressure: Right: 90 Left: 108 Ankle-Brachial Indices: Right: 1.0 Left: 1.0 (Vessel hardening > 1.4; Normal 0.9 - 1.4, Moderate 0.7 - 0.9, Severe 0.5-0.7) IMPRESSION: Normal ankle-brachial brachial indices bilaterally. [facility], , 07/05/2024 3:27 PM
[2024-07-05 18:29] LABS: Hepatitis A Antibody IgM Nonreactive (Nonreactive); Hepatitis B Core IgM Nonreactive (Nonreactive); Hepatitis B Surface Antigen Nonreactive (Nonreactive); Hepatitis C IgG Antibody Nonreactive (Nonreactive); Magnesium 1.7 mg/dL (1.5-2.4)
--- NOTE | 2024-07-05 18:32 | P.PN ---
Subjective Progress Note Date: 07/05/24 H&P Date: 07/04/24 Chief Complaint: CP This is a 48-year-old female with past medical history significant for chronic hypoxic respiratory failure wears 2 L nasal cannula at home,COPD, ischemic cardiomyopathy, EF 25%, AICD, coronary artery disease with multiple previous PCI/stenting, hyperlipidemia, hypertension, chronic pain with pain pump, COPD , systolic CHF, apical thrombus 01/26/2024- anticoagulated on Eliquis, prior nicotine dependence--a heavy 2 to 3 pack a day smoker for several years and multiple other medical issues presented to the ER with complaints of chest pain. Reports over the last 3 weeks," felt ill, fatigued," did not consume any me dication remedies. On Monday at the medical center developed left sided chest pain nonradiating , spontaneously subsided. Proceeded to see PCP Dr. Rodriguez on Monday. EKG performed reported as abnormal and patient was referred to the ER. Troponins negative x 3, proBNP 1030. evaluated by cardiology, EKGs reviewed and patient is scheduled for cardiac catheterization tomorrow. Medication changes were also recommended, but patient is reluctant due to history of prior hypotensive events with multiple med changes. chest x-ray reported nonacute. CBC and chemistry unremarkable. Triglycerides 171, cholesterol 234, LDL 167, HDL 32. 07/05/2024 completed cardiac catheterization this morning reporting chronic total occlusion of the LAD which is in-stent occlusion of the long segment. Intermediate to severe disease involving the mid RCA documented to be flow- limiting by Doppler wire. CTS consulted. Postprocedure patient continues to have continuous chest pressure nonradiating, rating it at a 3/10. Denies lightheadedness dizziness or focal deficits. Objective - Vital Signs Vital signs: Vital Signs Temp 97.6 F 07/05/24 06:52 Pulse 76 07/05/24 06:52 Resp 17 07/05/24 06:52 BP 121/81 07/05/24 06:52 Pulse Ox 94 L 07/05/24 06:52 FiO2 21 07/04/24 08:57 Intake & Output 07/04/24 07/05/24 07/05/24 18:59 06:59 18:59 Intake Total 1302 852 Balance 1302 852 Intake: IV 200 Oral 1302 652 Other: Voiding Method Toilet Toilet # Voids 5 2 # Bowel Movements 0 - Exam PHYSICAL EXAM: VITAL SIGNS: [As above] GENERAL: Morbidly obese, alert and oriented x 3, lying in bed, no acute distress HEENT: Atraumatic, normocephalic .conjunctivae normal. eyes normal. Sclera anicteric. NECK: Supple, no JVD. CARDIOVASCULAR: S1, S2 regular. Systolic murmur RESPIRATION: Unlabored, equal air entry, essentially clear, bilateral lungs diminished. ABDOMEN: Soft, nontender . No guarding. no masses palpable. Positive bowel sounds LEGS: No edema, no clubbing or cyanosis NERVOUS SYSTEM: Cranial N 2-12 grossly normal.No focal deficits. Skin: Warm and dry, no rash. - Labs CBC & Chem 7: 07/03/24 16:01 07/03/24 16:01 Assessment and Plan Assessment: Chest pain, troponins negative x 3, [place], status post cardiac catheterization reporting chronic total occlusion of the LAD which is in-stent occlusion of the long segment. Intermediate to severe disease involving the mid RCA documented to be flow-limiting by Doppler wire. CTS consulted. Chronic hypoxic and hypercapnic respiratory failure, wears 2 L nasal cannula O2 at home Chronic obstructive pulmonary disease History of apical thrombus maintained on anticoagulation Chronic systolic CHF History of ischemic cardiomyopathy, with ejection fraction of 25%, status post AICD implantation Mild to moderate aortic regurgitation Coronary artery disease, with history of multiple PCI/stenting Hyperlipidemia Chronic pain, with implanted pain pump Recent former nicotine dependent Morbid obesity, BMI 36 Plan: Continue on current medication resume ,monitoring and symptomatic treatment. CTS consulted, recommendations pending. Prognosis guarded given multiple complex medical issues. The impression and plan of care has been dictated as directed. : I performed a history and examination of this patient, discussed the same with the dictator. I agree with the dictator's note ,documented as a scribe. Any additional findings or plans will be noted.
[2024-07-05] MEDS: MUPIROCIN 2% OINT 22 GM TUBE NASAL SCH (19:42)
[2024-07-05] MEDS: ALPRAZolam 0.5 MG TAB PO PRN (20:59)
[2024-07-05] MEDS: NITROGLYCERIN SL TABS 0.4 MG TAB SUBLINGUAL PRN (21:42)
[2024-07-06 05:47] LABS: Glucose,Whole Blood 107 mg/dL (70-110)
[2024-07-06] MEDS: ASPIRIN 325 MG TAB PO ONE (05:47)
[2024-07-06 09:42] LABS: BUN/Creat Ratio 17.55 Ratio (12.00-20.00); Blood Urea Nitrogen 19.3 mg/dL (9.0-27.0); Calcium 9.3 mg/dL (8.7-10.3); Carbon Dioxide 26.3 mmol/L (21.6-31.8); Chloride 96 mmol/L (96-109); Glucose 100 mg/dL (70-110); Potassium 4.3 mmol/L (3.5-5.5); Sodium 136 mmol/L (135-145)
[2024-07-06] MEDS: MIDAZOLAM 2 MG/2 ML VIAL IVP ONE (10:06)
[2024-07-06] MEDS: SODIUM CHLORIDE 0.9% 1,000 ML IV ONE (10:06)
[2024-07-06] MEDS: LIDOCAINE 1% INJ 10MG/ML (20 ML MDV) SQ ONE (10:06)
[2024-07-06] MEDS: VERAPAMIL SYRINGE (5 MG/10 ML) INTRAARTER ONE (10:09)
[2024-07-06] MEDS: HEPARIN SODIUM 1,000 UN/ML (10ML VL) IVP ONE (10:10)
[2024-07-06] MEDS: TICAGRELOR 90 MG TAB PO ONE (10:11)
[2024-07-06] MEDS: HEPARIN SODIUM,PORCINE 10,000 UNIT in SODIUM CHLORIDE 0.9% 1,000 ML IRRIGATION PRN (10:21)
[2024-07-06] MEDS: HEPARIN SODIUM,PORCINE (1 ML) 2,500 UNIT in SODIUM CHLORIDE 0.9% 250 ML IRRIGATION PRN (10:22)
[2024-07-06] MEDS ORDERED: MAG HYDROX/AL HYDROX/SIMETH 30 ML CUP PO PRN (10:43)
[2024-07-06] MEDS ORDERED: ATROPINE SULFATE 0.1 MG/ML 10ML SYRINGE IV PRN (10:43)
[2024-07-06] MEDS ORDERED: ZOLPIDEM 5 MG TAB PO PRN (10:43)
[2024-07-06] MEDS ORDERED: RX INFO: IV CONTRAST WAS GIVEN 1 EACH MISC MISCELLANE PRN (10:43)
[2024-07-06] MEDS ORDERED: NITROGLYCERIN SL TABS 0.4 MG TAB SUBLINGUAL PRN (10:43)
--- NOTE | 2024-07-06 10:47 | P.PCN ---
Date of Procedure: 07/06/24 Operative Findings: PERCUTANEOUS CORONARY INTERVENTION Performing physician John Montoya M.D. Procedure Performed: 1. Successful balloon angioplasty of the RCA using 3.5 mm lithotripsy balloon with an excellent angiographic results 2. Adjunctive use of lithotripsy balloon and IVUS 3. Ultrasound-guided access of the right radial Indication: Acute non-ST elevation myocardial infarction Approach: Right radial art Complications: None Level of Sedation: Moderate with a sedation length of 35 minutes Procedure Discussion: After obtaining informed consent the patient was brought to the cardiac Employment Specialist/Program Manager. The right radial artery was cannulated using micropuncture technique under ultrasound guidance a micropuncture wire passed easily then I placed a 6 [place] 11 cm sheath at the right radial artery at that point anticoagulation was initiated using heparin with continuous ACT monitoring. Subsequently I did engage the RCA using JR4 guiding catheter. I did wired the RCA using a run- through wire. Intravascular ultrasound was performed and showed a diameter around 3.5 mm with a calcified vessel and with that I decided to use lithotripsy balloon. I did balloon angioplasty of the RCA using 3.5 mm lithotripsy balloon and subsequently using 3.5 mm NC balloon. Final angiogram showed excellent angiographic results with reduction of stenosis from 70% to 0% and no dissection was identified. With MEAGHAN-3 flow Postprocedure Management: 1. Continue the current medical regimen including dual antiplatelet therapy with aspirin and Treanda for at least 12-month and preferably 18-month 2. Aggressive cholesterol control 3. Risk factors modification
[2024-07-06] MEDS: IOPAMIDOL-370 100ML BTL INJ ONE (10:57)
[2024-07-06] MEDS: SODIUM CHLORIDE 0.9% 1,000 ML in EMPTY BAG 1 BAG IV SCH (10:59)
[2024-07-06 11:16] LABS: Basophils # (A) 0.07 X 10*3/uL (0.00-0.10); Basophils % (A) 1.2 %; Eosinophils # (A) 0.31 X 10*3/uL (0.04-0.35); Eosinophils % (A) 5.1 %; HCT 42.6 % (37.2-46.3); HGB 13.6 g/dL (12.0-15.0); Lymphocytes # (A) 3.26 X 10*3/uL (0.90-5.00); Lymphocytes % (A) 53.9 %; MCH 28.3 pg (27.0-32.0); MCHC 31.9 g/dL (32.0-37.0); MCV 88.8 FL (80.0-97.0); Mean Platelet Volume 11.1 FL (9.5-12.2); Monocytes # (A) 0.64 X 10*3/uL (0.20-1.00); Monocytes % (A) 10.6 %; NRBC Per 100 WBC 0 X 10*3/uL (0.00-0.01); Neutrophils # (A) 1.76 X 10*3/uL (1.80-7.70); Platelet Count 256 X 10*3/uL (140-440); WBC 6.05 X 10*3/uL (4.50-10.00)
--- NOTE | 2024-07-06 12:29 | CA ---
Transthoracic Echo Report Name: Sahara Denise Age: 48 Gender: F : 1975 Exam Date: 07/05/2024 11:37 Exam Location: [facility] Ht (in): 62 Wt (lb): 195 Ordering Physician: Maximino Arvizu Attending/Referring Phys: Nolberto SCHAFFER Data Management Engineer Ricardo, Roybn, RDELIDA Procedure CPT: Indications: eval preop cardiac surgery, hx LV thrombus Cardiac Hx: AICD, COPD, Cath, CHF Technical Quality: Poor Contrast 1: Definity Total Dose (mL): 2 Contrast 2: Total Dose (mL): MEASUREMENTS (Male / Female) Normal Values 2D ECHO LV Diastolic Diameter PLAX 5.9 cm 4.2 - 5.9 / 3.9 - 5.3 cm LV Systolic Diameter PLAX 5.5 cm IVS Diastolic Thickness 1.2 cm 0.6 - 1.0 / 0.6 - 0.9 cm LVPW Diastolic Thickness 1.2 cm 0.6 - 1.0 / 0.6 - 0.9 cm LV Relative Wall Thickness 0.4 RV Internal Dim ED PLAX 1.7 cm LA Systolic Diameter LX 3.3 cm 3.0 - 4.0 / 2.7 - 3.8 cm LA Volume 50.2 cm??? 18 - 58 / 22 - 52 cm??? LA Volume Index 25.0 cm???/m??? 16 - 28 cm???/m??? M-MODE Aortic Root Diameter MM 3.1 cm LA Systolic Diameter MM 3.0 cm LA Ao Ratio MM 1.0 AV Cusp Separation MM 1.7 cm DOPPLER AV Peak Velocity 164.9 cm/s AV Peak Gradient 10.9 mmHg AV Mean Velocity 105.5 cm/s AV Mean Gradient 5.4 mmHg AV Velocity Time Integral 23.4 cm AI Peak Velocity 367.4 cm/s AI Peak Gradient 54.0 mmHg AI Pressure Half Time 540.9 ms LVOT Peak Velocity 107.9 cm/s LVOT Peak Gradient 4.7 mmHg LVOT Velocity Time Integral 20.3 cm MV Area PHT 2.4 cm??? Mitral E Point Velocity 43.3 cm/s Mitral A Point Velocity 81.7 cm/s Mitral E to A Ratio 0.5 MV Deceleration Time 313.3 ms TR Peak Velocity 270.6 cm/s TR Peak Gradient 31.7 mmHg Right Ventricular Systolic Press 36.7 mmHg FINDINGS Left Ventricle Left ventricular ejection fraction is estimated at 15-20 %. Mildly increased septal wall thickness. Mildly increased posterior wall thickness. Moderately increased left ventricular diastolic diameter. Severely reduced global left ventricular systolic function. Probable left ventricular apical thrombus. Right Ventricle Normal right ventricular size and function. Mild pulmonary hypertension. Right Atrium Normal right atrial size. Catheter/pacemaker wire in the right atrial cavity. Left Atrium Mild left atrial dilatation. Mitral Valve Structurally normal mitral valve. Trace mitral regurgitation. No mitral stenosis. Aortic Valve Aortic valve not well visualized. Moderate aortic regurgitation. No aortic stenosis. Tricuspid Valve Structurally normal tricuspid valve. Mild tricuspid regurgitation. No tricuspid stenosis. Pulmonic Valve Structurally normal pulmonic valve. Trace pulmonic regurgitation. No pulmonic stenosis. Pericardium Echo free space anterior to the right ventricle likely represents a fat pad. Aorta Normal size aortic root and proximal ascending aorta. CONCLUSIONS Diagnosis acute coronary syndrome, CAD Dilated left ventricle with severe LV dysfunction ejection fraction less than 20% Previewed by: Dr. Ashish Borja MD (Electronically Signed) Final Date: 06 July 2024 12:28
--- NOTE | 2024-07-06 14:20 | P.PN ---
Subjective Progress Note Date: 07/06/24 The patient is a 48-year-old female who was admitted to the hospital with chest discomfort. She underwent coronary angiogram which showed in-stent stenosis of LAD as well as intermediate to severe lesion in the RCA. Yesterday cardiac surgery was consulted for possible coronary bypass. She was not deemed a good candidate and therefore will undergo stenting of the RCA as well as possible arthrectomy and restenting of the LAD with Dr. Montoya. Patient interviewed and examined resting comfortably in bed. She does not have any current chest discomfort. No difficulty breathing. GENERAL: Well-appearing, well-nourished and in no acute distress. NECK: Supple without JVD or thyromegaly. LUNGS: Breath sounds clear to auscultation bilaterally. Respiration equal and unlabored. No wheezes, rales or rhonchi. HEART: Regular rate and rhythm without murmurs, rubs or gallops. S1 and S2 heard. EXTREMITIES: Normal range of motion, no edema. No clubbing or cyanosis. Peripheral pulses intact and strong. TELEMETRY: Sinus rhythm overnight LABS: WBC 6.0, hemoglobin 13.6, hematocrit 42.6, platelet 256, sodium 136, potassium 4.3, BUN 19, creatinine 1.1, hemoglobin A1c 6.1, magnesium 1.7, BNP 1030, TSH 0.8 IMPRESSION: Chest pain Chronic systolic heart failure Coronary artery disease with prior triple-vessel stenting Ischemic cardiomyopathy status post AICD Hypertension Dyslipidemia Mild to moderate aortic regurgitation Morbid obesity with BMI of 45, down to 35 History of tobacco use, patient quit January 2024 COPD Chronic hypoxic respiratory failure on home oxygen Possible apical thrombus on echocardiogram, on Eliquis PLAN: Patient to go for intervention later today with Dr. Montoya Continue n.p.o. Further recommendations to be based upon clinical course I am dictating on behalf of Dr Ashish Borja's history/physical and assessment/plan. Objective - Vital Signs Vital signs: Vital Signs Temp 97.5 F L 07/06/24 07:00 Pulse 82 07/06/24 07:00 Resp 16 07/06/24 07:00 BP 101/68 07/06/24 00:49 Pulse Ox 92 L 07/06/24 07:00 FiO2 21 07/04/24 08:57 Intake & Output 07/05/24 07/06/24 07/06/24 18:59 06:59 18:59 Intake Total 1913 Balance 1913 Intake: IV 200 Oral 1714 Other: Voiding Method Toilet Toilet # Voids 6 3 - Labs CBC & Chem 7: 07/06/24 04:35 07/06/24 04:35 Labs: Abnormal Lab Results - Last 24 Hours (Table) 07/05/24 Range/Units 12:32 Hemoglobin A1c 6.1 H (<=6.0) %
--- NOTE | 2024-07-06 14:21 | P.PN ---
Subjective Patient was determined not to be candidate for bypass due to the extent of her cardiomyopathy from previous heart disease episodes. She underwent a cardiac catheterization this morning. She had a balloon angioplasty of the RCA for her acute non-ST elevated myocardial infarction. He is doing well post operatively. Her family is at bedside. She is chest pain-free. Denies any nausea or vomiting at this time. Her family I discussed her current medications and her chronic medical issues. Vital signs are stable, labs this morning are essenti ally normal. Objective - Vital Signs Vital signs: Vital Signs Temp 97.7 F 07/06/24 11:02 Pulse 85 07/06/24 11:25 Resp 18 07/06/24 11:02 BP 112/81 07/06/24 11:25 Pulse Ox 94 L 07/06/24 11:25 FiO2 21 07/04/24 08:57 Intake & Output 07/05/24 07/06/24 07/06/24 18:59 06:59 18:59 Intake Total 1914 50 Balance 1914 50 Intake: IV 200 50 Oral 1714 Other: Voiding Method Toilet Toilet # Voids 6 3 - Exam General: The patient is awake and alert, in no distress, she is obese Neck: The neck is supple, there is no thyromegaly, lymphadenopathy, tenderness or JVD. Cardiovascular: S1S2 is normal, There is a regular rate and rhythm. No murmur, rub or gallop is appreciated. Respiratory: Lungs are clear to auscultation bilaterally, respirations are non-labored, breath sounds are equal. Gastrointestinal: Soft, non-distended, non-tender abdomen without masses or organomegaly noted. There is no rebound or guarding present. Bowel sounds are unremarkable. Musculoskeletal: Normal ROM, no tenderness, There is no pedal edema. There is no calf tenderness or swelling. No cords were appreciated. Neurological: CN II-XII intact, there are no obvious motor or sensory deficits. Coordination appears grossly intact. Speech is normal. Skin: Skin is warm and dry and no rashes or lesions are noted. - Labs CBC & Chem 7: 07/06/24 04:35 07/06/24 04:35 Labs: Abnormal Lab Results - Last 24 Hours (Table) 07/05/24 07/06/24 07/06/24 Range/Units 12:32 04:35 04:35 MCHC 31.9 L (32.0-37.0) g/dL Neutrophils # 1.76 L (1.80-7.70) X 10*3/uL Anion Gap 13.70 H (4.00-12.00) mmol/L Hemoglobin A1c 6.1 H (<=6.0) % Assessment and Plan Plan: Non-ST elevated myocardial infarction: Status post cardiac catheterization and stenting of the right coronary artery. She continues on aspirin, atorvastatin, and now Brilinta. She has Imdur ordered for chest pain. Remains on metoprolol as well. Chronic hypoxic and hypercapnic respiratory failure, wears 2 L nasal cannula O2 at home, she continues to on albuterol as needed Chronic obstructive pulmonary disease: Monitor History of apical thrombus maintained on anticoagulation: She continues on Eliquis Chronic systolic CHF: She remains on Bumex, spironolactone, and Entresto History of ischemic cardiomyopathy, with ejection fraction of 25%, status post AICD implantation Mild to moderate aortic regurgitation: Cardiology monitoring Coronary artery disease, with history of multiple PCI/stenting Hyperlipidemia: Continues on atorvastatin Chronic pain, with implanted pain pump Current smoker: Smoking cessation was discussed with her at length. Morbid obesity, BMI 36 Bipolar: Continue Depakote and Lexapro. Aggressive lifestyle modifications, and further medications were discussed with the patient.
[2024-07-06 15:02] VITALS: BMI 35.6
[2024-07-06] MEDS: TICAGRELOR 90 MG TAB PO SCH (22:16)
[2024-07-06] MEDS: BENZOCAINE 20% HEMORRHOIDAL OINT 28GM RECTAL PRN (22:28)
[2024-07-07 09:54] LABS: Basophils # (A) 0.02 X 10*3/uL (0.00-0.10); Basophils % (A) 0.4 %; Eosinophils # (A) 0.21 X 10*3/uL (0.04-0.35); Eosinophils % (A) 3.7 %; HCT 38.8 % (37.2-46.3); HGB 12.1 g/dL (12.0-15.0); Lymphocytes # (A) 2.03 X 10*3/uL (0.90-5.00); Lymphocytes % (A) 36.2 %; MCH 28.2 pg (27.0-32.0); MCHC 31.2 g/dL (32.0-37.0); MCV 90.4 FL (80.0-97.0); Monocytes # (A) 0.52 X 10*3/uL (0.20-1.00); Monocytes % (A) 9.3 %; NRBC Per 100 WBC 0 X 10*3/uL (0.00-0.01); Neutrophils # (A) 2.82 X 10*3/uL (1.80-7.70); Neutrophils % (A) 50.2 %; Platelet Count 224 X 10*3/uL (140-440); RBC 4.29 X 10*6/uL (4.10-5.20); RDW 14.3 % (11.5-14.5); WBC 5.61 X 10*3/uL (4.50-10.00)
[2024-07-07 09:59] LABS: BUN/Creat Ratio 23.33 Ratio (12.00-20.00); Carbon Dioxide 29.4 mmol/L (21.6-31.8); Chloride 100 mmol/L (96-109); Glucose 104 mg/dL (70-110); Potassium 4.5 mmol/L (3.5-5.5); Sodium 139 mmol/L (135-145)
[2024-07-07 10:00] LABS: Calcium 9.1 mg/dL (8.7-10.3)
[2024-07-07] MEDS: ALENDRONATE SODIUM 70 MG PO SCH (11:30)
--- NOTE | 2024-07-07 12:49 | P.DS ---
Providers Date of admission: 07/03/24 17:03 Expected date of discharge: 07/07/24 Attending physician: Brenden Rodriguez Consults: 07/03/24 17:02 Consult Physician Urgent Consulting Provider: Dilcia Pollard Consult Reason/Comments: Chest pain Do you want consulting provider notified?: Yes 07/05/24 08:26 Consult Physician Routine Consulting Provider: Eduarda Barger Consult Reason/Comments: eval for CABG Do you want consulting provider notified?: Yes 07/06/24 10:43 Consult Physician Routine Consulting Provider: Dilcia Pollard Consult Reason/Comments: Post Interventional Patient Do you want consulting provider notified?: Already Contacted Primary care physician: [facility] Course: 07/06/2024 Patient was determined not to be candidate for bypass due to the extent of her cardiomyopathy from previous heart disease episodes. She underwent a cardiac catheterization this morning. She had a balloon angioplasty of the RCA for her acute non-ST elevated myocardial infarction. He is doing well post operatively. Her family is at bedside. She is chest pain-free. Denies any nausea or vomiting at this time. Her family I discussed her current medications and her chronic medical issues. Vital signs are stable, labs this morning are essentially normal. 07/07/2024: Patient is cleared by cardiology. She appears medically stable. There is been some medication adjustments. She is scheduled to follow-up with cardiology soon. Will monitor her hemorrhoid in the office which is causing her some discomfort as well. Plan - Discharge Summary New Discharge Prescriptions: New Ticagrelor [Brilinta] 90 mg PO BID #30 tab Nicotine 21Mg/24Hr Patch [Habitrol] 1 patch TRANSDERM DAILY patch Isosorbide Mononitrate ER [Imdur] 15 mg PO DAILY@0800 #30 tab Mag Hydrox/Al Hydrox/Simeth [Maalox] 30 ml PO Q4HR PRN ml PRN Reason: Heartburn Nitroglycerin Sl Tabs [Nitrostat] 0.4 mg SUBLINGUAL Q5M PRN #30 tab PRN Reason: Chest Pain Continue Omeprazole [PriLOSEC] 40 mg PO DAILY@0800 Atorvastatin [Lipitor] 80 mg PO DAILY@1900 Divalproex ER [Depakote ER] 1,000 mg PO DAILY@1200 Alendronate Sodium 70 mg PO COHEN@0800 Metoprolol Tartrate [Lopressor] 6.25 mg PO BID@1200,1900 Spironolactone [Aldactone] 25 mg PO BID@1000,1600 Escitalopram [Lexapro] 20 mg PO DAILY@1900 Gabapentin [Neurontin] 900 mg PO TID@1000,1600,0 Sacubitril/Valsartan [Entresto 24 mg-26 mg Tablet] 1 tab PO DIRECTED Ezetimibe [Zetia] 10 mg PO DAILY@1200 Patient Own Pump 0 bag Albuterol Sulfate [Ventolin HFA] 2 puff INHALATION RT-Q6H PRN PRN Reason: Shortness Of Breath Bumetanide [BUMEX] 2 mg PO BID@0800,1200 Aspirin EC [Ecotrin Low Dose] 81 mg PO DAILY@1600 traZODone HCL [Desyrel] 25 mg PO HS@2199 ALPRAZolam [Xanax] 0.25 mg PO BID PRN PRN Reason: Anxiety oxyCODONE-APAP 5-325MG [Percocet 5-325 mg] 1 tab PO BID PRN PRN Reason: Pain Apixaban [Eliquis] 5 mg PO BID@1000,2200 Discontinued Isosorbide Mononitrate [Isosorbide Mononitrate ER] 15 mg PO DAILY@0800 Discharge Medication List Omeprazole [PriLOSEC] 40 mg PO DAILY@0800 11/29/16 [History] Atorvastatin [Lipitor] 80 mg PO DAILY@1900 11/30/16 [History] Divalproex ER [Depakote ER] 1,000 mg PO DAILY@1200 02/06/17 [History] Alendronate Sodium 70 mg PO COHEN@0800 06/29/17 [History] Metoprolol Tartrate [Lopressor] 6.25 mg PO BID@1200,1900 09/25/19 [History] Spironolactone [Aldactone] 25 mg PO BID@1000,1600 11/19/19 [History] Escitalopram [Lexapro] 20 mg PO DAILY@1900 04/27/20 [History] ALPRAZolam [Xanax] 0.25 mg PO BID PRN 02/12/23 [History] Aspirin EC [Ecotrin Low Dose] 81 mg PO DAILY@1600 02/12/23 [History] Gabapentin [Neurontin] 900 mg PO TID@1000,1600,2200 07/23/23 [History] Sacubitril/Valsartan [Entresto 24 mg-26 mg Tablet] 1 tab PO DIRECTED 02/12/23 [History] traZODone HCL [Desyrel] 25 mg PO HS@2200 02/12/23 [History] Ezetimibe [Zetia] 10 mg PO DAILY@1200 04/23/23 [History] Albuterol Sulfate [Ventolin HFA] 2 puff INHALATION RT-Q6H PRN 01/25/24 [History] Patient Own Pump 0 bag 01/25/24 [History] oxyCODONE-APAP 5-325MG [Percocet 5-325 mg] 1 tab PO BID PRN 01/25/24 [History] Apixaban [Eliquis] 5 mg PO BID@1000,2200 07/03/24 [History] Bumetanide [BUMEX] 2 mg PO BID@0800,1200 07/03/24 [History] Isosorbide Mononitrate ER [Imdur] 15 mg PO DAILY@0800 #30 tab 07/07/24 [Rx] Mag Hydrox/Al Hydrox/Simeth [Maalox] 30 ml PO Q4HR PRN ml 07/07/24 [Rx] Nicotine 21Mg/24Hr Patch [Habitrol] 1 patch TRANSDERM DAILY patch 07/07/24 [Rx] Nitroglycerin Sl Tabs [Nitrostat] 0.4 mg SUBLINGUAL Q5M PRN #30 tab 07/07/24 [Rx] Ticagrelor [Brilinta] 90 mg PO BID #30 tab 07/07/24 [Rx] Follow up Appointment(s)/Referral(s): John Montoya MD [STAFF PHYSICIAN] - 1 Week Brenden Rodriguez MD [STAFF PHYSICIAN] - 1 Week Ambulatory/Diagnostic Orders: Ambulatory Miscellaneous Order [MISC.AMB] Location: None Selected Discharge Disposition: HOME WITH HOME HEALTH SERVICES
[2024-07-07 13:21] VITALS: BP 112/77; PULSE 83; RESP 16; TEMP 98.2
--- NOTE | 2024-07-07 15:08 | P.PN ---
Subjective Progress Note Date: 07/07/24 The patient is a 48-year-old female who was admitted to the hospital with chest discomfort. She underwent coronary angiogram which showed in-stent stenosis of LAD as well as intermediate to severe lesion in the RCA. Cardiac surgery was consulted, however she was not deemed a suitable candidate. Patient underwent balloon angioplasty yesterday with Dr. Mc for her RCA lesion. Patient does have rein-stent stenosis of the LAD, which will be treated medically as it has collateral flow. Patient interviewed and examined resting comfortably in bed. She does not have any current chest discomfort. No difficulty breathing. GENERAL: Well-appearing, well-nourished and in no acute distress. NECK: Supple without JVD or thyromegaly. LUNGS: Breath sounds clear to auscultation bilaterally. Respiration equal and unlabored. No wheezes, rales or rhonchi. HEART: Regular rate and rhythm. Soft systolic. No rubs or gallops. S1 and S2 heard. EXTREMITIES: Normal range of motion, no edema. No clubbing or cyanosis. Peripheral pulses intact and strong. Right radial site dressing is clean dry and intact. No significant bruising or hematoma noted. TELEMETRY: Sinus rhythm overnight LABS: WBC 5.6, hemoglobin 12.1, hematocrit 38.8, platelet 224, sodium 139, potassium 4.5, BUN 21, creatinine 0.9 IMPRESSION: Chest pain Chronic systolic heart failure Coronary artery disease with prior triple-vessel stenting Ischemic cardiomyopathy status post AICD Hypertension Dyslipidemia Mild to moderate aortic regurgitation Morbid obesity with BMI of 45, down to 35 History of tobacco use, patient quit January 2024 COPD Chronic hypoxic respiratory failure on home oxygen Possible apical thrombus on echocardiogram, on Eliquis PLAN: Continue home medications in addition to dual antiplatelet therapy Patient may be discharged I am dictating on behalf of Dr Ashish Borja's history/physical and assessment/plan. Objective - Vital Signs Vital signs: Vital Signs Temp 97.4 F L 07/07/24 07:00 Pulse 66 07/07/24 07:00 Resp 15 07/07/24 07:00 BP 92/62 07/07/24 07:00 Pulse Ox 93 L 07/07/24 07:00 FiO2 21 07/04/24 08:57 Intake & Output 07/06/24 07/07/24 07/07/24 18:59 06:59 18:59 Intake Total 522 Balance 522 Weight 88.451 kg Intake: IV 50 Oral 472 Other: Voiding Method Toilet # Voids 1 1 - Labs CBC & Chem 7: 07/07/24 07:10 07/07/24 07:10 Labs: Abnormal Lab Results - Last 24 Hours (Table) 07/06/24 07/06/24 Range/Units 04:35 04:35 MCHC 31.9 L (32.0-37.0) g/dL Neutrophils # 1.76 L (1.80-7.70) X 10*3/uL Anion Gap 13.70 H (4.00-12.00) mmol/L
== END 2024-07-07 14:10 | disposition home health service (06) ==
LOC: EC 15:18 → 6NMEDSUR 17:03
PROVIDERS: ADMIT Family Medicine; ATTEND Family Medicine
DX: I21.4 Non-ST elevation (NSTEMI) myocardial infarction (principal); T82.855A Stenosis of coronary artery stent, initial encounter; Y83.1 Surgical operation with implant of artificial internal device as the cause of abnormal reaction of the patient, or of later complication, without mention of misadventure at the time of the procedure; I25.119 Atherosclerotic heart disease of native coronary artery with unspecified angina pectoris; J96.12 Chronic respiratory failure with hypercapnia; J96.11 Chronic respiratory failure with hypoxia; I11.0 Hypertensive heart disease with heart failure; I50.22 Chronic systolic (congestive) heart failure; I35.1 Nonrheumatic aortic (valve) insufficiency; I25.5 Ischemic cardiomyopathy; I25.2 Old myocardial infarction; M81.0 Age-related osteoporosis without current pathological fracture; M79.7 Fibromyalgia; J44.89 Other specified chronic obstructive pulmonary disease; E66.01 Morbid (severe) obesity due to excess calories; E78.5 Hyperlipidemia, unspecified; G89.29 Other chronic pain; M51.360 Other intervertebral disc degeneration, lumbar region with discogenic back pain only; F41.9 Anxiety disorder, unspecified; F31.9 Bipolar disorder, unspecified; F17.210 Nicotine dependence, cigarettes, uncomplicated; G43.909 Migraine, unspecified, not intractable, without status migrainosus; K21.9 Gastro-esophageal reflux disease without esophagitis; Z99.81 Dependence on supplemental oxygen; Z95.5 Presence of coronary angioplasty implant and graft; Z96.89 Presence of other specified functional implants; Z95.810 Presence of automatic (implantable) cardiac defibrillator; Z95.1 Presence of aortocoronary bypass graft; Z87.442 Personal history of urinary calculi; Z87.440 Personal history of urinary (tract) infections; Z87.01 Personal history of pneumonia (recurrent); Z79.899 Other long term (current) drug therapy; Z79.82 Long term (current) use of aspirin; Z79.01 Long term (current) use of anticoagulants; Z88.1 Allergy status to other antibiotic agents; Z68.36 Body mass index [BMI] 36.0-36.9, adult
CPT/HCPCS: 99285; 36415; 94640; 94760; 93005; 92978; 93458; 93799; 92972; 92920; 83880; 80061; 80053; 80048 ×2; 80074; 84443; 83735 ×2; 84484 ×2; 85025 ×3; 85610; 85730; 83036; 71046; 93931; 93970; 93922; 93880; 71250; G0378 ×5; C8929; S4990 ×3; J2250 ×2; J1644 ×4; J2003 ×2; J3010; Q9967 ×2; 93306

== ENCOUNTER 2024-07-22 17:01 | Emergency (ER) | payer MEDICARE ==
[2024-07-22 17:11] VITALS: RESP 16
--- NOTE | 2024-07-22 18:19 | ED ---
Chest Pain HPI - General Source: patient Mode of arrival: wheelchair Limitations: no limitations <Sushma Mullen - Last Filed: 07/23/24 00:18> <Brandon Gay - Last Filed: 07/23/24 22:47> - General Chief Complaint: Chest Pain Stated Complaint: Chest pain Time Seen by Provider: 07/22/24 18:18 - History of Present Illness Initial Comments: 48-year-old female presenting with chief complaint of chest pain. Patient had a recent NSTEMI and PCI. (Sushma Mullen) Patient was initially evaluated as a quick note with complaint of chest pain, recent SD with angioplasty. Patient had developed chest pain earlier in the day which required nitroglycerin. She states that she does use nitroglycerin from time to time she had contacted her turn laster but did not hear back. At the time my evaluation she is chest pain-free and states she has been chest pain- free for several hours. Patient had laboratory testing, EKG, chest x-ray and 2 troponin test prior to my evaluation. (Brandon Gay) - Related Data Home Medications Medication Instructions Recorded Confirmed Omeprazole [PriLOSEC] 40 mg PO DAILY@0800 11/29/16 07/03/24 Atorvastatin [Lipitor] 80 mg PO DAILY@1900 11/30/16 07/03/24 Divalproex ER [Depakote ER] 1,000 mg PO DAILY@1200 02/06/17 07/03/24 Alendronate Sodium 70 mg PO COHEN@0800 06/29/17 07/03/24 Metoprolol Tartrate [Lopressor] 6.25 mg PO BID@1200,1900 09/25/19 07/03/24 Spironolactone [Aldactone] 25 mg PO BID@1000,1600 11/19/19 07/03/24 Escitalopram [Lexapro] 20 mg PO DAILY@1900 04/27/20 07/03/24 ALPRAZolam [Xanax] 0.25 mg PO BID PRN 02/12/23 07/03/24 Aspirin EC [Ecotrin Low Dose] 81 mg PO DAILY@1600 02/12/23 07/03/24 Gabapentin [Neurontin] 900 mg PO TID@1000,1600,2200 02/12/23 07/03/24 Sacubitril/Valsartan [Entresto 24 1 tab PO DIRECTED 02/12/23 07/03/24 mg-26 mg Tablet] traZODone HCL [Desyrel] 25 mg PO HS@2200 02/12/23 07/03/24 Ezetimibe [Zetia] 10 mg PO DAILY@1200 04/23/23 07/03/24 Albuterol Sulfate [Ventolin HFA] 2 puff INHALATION RT-Q6H PRN 01/25/24 07/03/24 Patient Own Pump 0 bag 01/25/24 oxyCODONE-APAP 5-325MG [Percocet 1 tab PO BID PRN 01/25/24 07/03/24 5-325 mg] Apixaban [Eliquis] 5 mg PO BID@1000,2200 07/03/24 07/03/24 Bumetanide [BUMEX] 2 mg PO BID@0800,1200 07/03/24 07/03/24 Previous Rx's Medication Instructions Recorded Isosorbide Mononitrate ER [Imdur] 15 mg PO DAILY@0800 #30 tab 07/07/24 Mag Hydrox/Al Hydrox/Simeth 30 ml PO Q4HR PRN ml 07/07/24 [Maalox] Nicotine 21Mg/24Hr Patch [Habitrol] 1 patch TRANSDERM DAILY patch 07/07/24 Nitroglycerin Sl Tabs [Nitrostat] 0.4 mg SUBLINGUAL Q5M PRN #30 tab 07/07/24 Ticagrelor [Brilinta] 90 mg PO BID #30 tab 07/07/24 Allergies Allergy/AdvReac Type Severity Reaction Status Date / Time moxifloxacin HCl Allergy Rash/Hives Verified 07/22/24 17:11 [From Avelox] Review of Systems ROS Other: All systems not noted in ROS Statement are negative. <Sushma Mullen - Last Filed: 07/23/24 00:18> ROS Other: All systems not noted in ROS Statement are negative. <Brandon Gay - Last Filed: 07/23/24 22:47> ROS Statement: Those systems with pertinent positive or pertinent negative responses have been documented in the HPI. Past Medical History Past Medical History: Asthma, Coronary Artery Disease (CAD), Chest Pain / Angina, Heart Failure, COPD, Fibromyalgia, GERD/Reflux, Hyperlipidemia, Hypertension, Myocardial Infarction (SD), Musculoskeletal Disorder, Osteoarthritis (OA), Pneumonia Additional Past Medical History / Comment(s): Has Pain Pump and AICD. Ishemic Cardiomyopathy. Hx SD X3 - 2004, 2012, 2017. Hx bronchitis. Chronic back pain, lumbar Degenerative Disc Disease, occasional neck pain, osteoporosis, migraines. Hx UTIs, kidney stones. Vertigo. Last Myocardial Infarction Date:: 2016 History of Any Multi-Drug Resistant Organisms: None Reported Past Surgical History: AICD, Heart Catheterization, Heart Catheterization With Stent, Orthopedic Surgery, Tubal Ligation Additional Past Surgical History / Comment(s): Multiple stents (pt unable to state how many), left hand surgery, pain clinic procedures, [employer] Pain Pump surgically implanted. Past Anesthesia/Blood Transfusion Reactions: No Reported Reaction, Motion Sickness Date of Last Stent Placement:: 08-13-16 Type of Cardiac Device: AICD Device Placement Date:: 2016 [employer] Past Psychological History: Anxiety, Bipolar, Depression Smoking Status: Current every day smoker Past Alcohol Use History: Occasional Past Drug Use History: Marijuana - Past Family History Mother Family Medical History: Coronary Artery Disease (CAD), Fibromyalgia, Hyperlipidemia Additional Family Medical History / Comment(s): Emotional problems, bipolar. Father Family Medical History: CVA/TIA, Fibromyalgia, Hyperlipidemia, Hypertension, Musculoskeletal Disorder Additional Family Medical History / Comment(s): MS. Sister(s) History Unknown: Yes Family Medical History: Hyperlipidemia <Sushma Mullen - Last Filed: 07/23/24 00:18> General Exam Limitations: no limitations <Sushma Mullen - Last Filed: 07/23/24 00:18> General appearance: alert, in no apparent distress Head exam: Present: atraumatic, normocephalic Eye exam: Present: normal appearance, PERRL ENT exam: Present: normal exam Neck exam: Present: normal inspection. Absent: tenderness, meningismus Respiratory exam: Present: normal lung sounds bilaterally. Absent: respiratory distress, wheezes Cardiovascular Exam: Present: regular rate, normal rhythm GI/Abdominal exam: Present: soft. Absent: distended, tenderness, guarding Neurological exam: Present: alert, oriented X3, CN II-XII intact. Absent: motor sensory deficit Psychiatric exam: Present: normal affect, normal mood Skin exam: Present: warm, dry <Brandon Gay - Last Filed: 07/23/24 22:47> - General Exam Comments Initial Comments: Visual Physical Exam Vital signs reviewed General: Well-appearing, nontoxic, no acute distress. Head: Normocephalic, atraumatic Eyes: PERRLA, EOMI ENT: Airway patent Chest: Nonlabored breathing Skin: No visual rash, normal skin tone Neuro: Alert and oriented 3 Musculoskeletal: No gross abnormalities (Sushma Mullen) Course Vital Signs 07/22/24 07/22/24 07/22/24 17:09 20:05 23:50 Temperature 98.2 F 98.3 F 98.1 F Pulse Rate 82 68 66 Respiratory 16 16 16 Rate Blood Pressure 115/70 94/61 110/70 O2 Sat by Pulse 97 94 L 95 Oximetry Chest Pain [facility] <Sushma Mullen - Last Filed: 07/23/24 00:18> <Brandon Gay - Last Filed: 07/23/24 22:47> - MDM I performed the quick note portion of this visit, electronically signed Sushma Mullen PA-C (Sushma Mullen) Was pt. sent in by a medical professional or institution (PATRICIA Hicks, RUBBER M[employer] OPERATOR, urgent care, hospital, or detention...) When possible be specific @ -No Did you speak to anyone other than the patient for history (EMS, parent, family, police, friend...)? What history was obtained from this source @ -No Did you review nursing and triage notes (agree or disagree)? Why? @ -I reviewed and agree with nursing and triage notes Were old charts reviewed (outside hosp., previous admission, EMS record, old EKG, old radiological studies, urgent care reports/EKG's, detention records)? Report findings @ -No old charts were reviewed Differential Chest Pain: Stable Angina, Unstable Angina, STEMI, NSTEMI Aortic Dissection, Pneumothorax, Musculoskeletal, Esophageal Spasm GERD, Cholecystitis, Pancreatitis, Zoster, this is not meant to be an all-inclusive list. EKG interpreted by me (3pts min.). @Sinus rhythm rate of 71, AL interval 162, QRS duration 115, QTc 426 similar QRS morphology and T wave inversion in the lateral precordial leads, no ST segment elevation. X-rays interpreted by me (1pt min.). @X-ray is cl chest x-ray negative for acute cardiopulmonary findings. CT interpreted by me (1pt min.). @ -None done U/S interpreted by me (1pt. min.). @ -None done What testing was considered but not performed or refused? (CT, X-rays, U/S, labs)? Why? @ -None What meds were considered but not given or refused? Why? @ -None Did you discuss the management of the patient with other professionals ( professionals i.e. , PA, RUBBER MILL OPERATOR, lab, RT, psych nurse, social work specialist, block cutter, teacher, forest officer, caseworker)? Give summary @ -No Was smoking cessation discussed for >3mins.? @ -No Was critical care preformed (if so, how long)? @ -No Were there social determinants of health that impacted care today? How? (Homelessness, low income, unemployed, alcoholism, drug addiction, transportation, low edu. Level, literacy, decrease access to med. care, senior living, rehab)? @ -No Was there de-escalation of care discussed even if they declined (Discuss DNR or withdrawal of care, Hospice)? DNR status @ -No What co-morbidities impacted this encounter? (DM, HTN, Smoking, COPD, CAD, Cancer, CVA, ARF, Chemo, Hep., AIDS, mental health diagnosis, sleep apnea, morbid obesity)? @ -Diabetes, hypertension, CAD, pacemaker defibrillator Was patient admitted / discharged? Hospital course, mention meds given and route, prescriptions, significant lab abnormalities, going to OR and other pertinent info. @ -48-year-old female who presents for evaluation of chest pain recent PCI. Patient was initially seen in triage, laboratory test including troponin was ordered and serial cardiac enzyme was ordered prior to the patient getting a room. Patient is on antiplatelet and Eliquis. She is chest pain-free at the time my evaluation and is eager for discharge. She did have serial cardiac enzymes by 3 hours which were both negative. She knows the risks and is familiar with her symptoms. She states she has a call out to her turn laster and will follow-up as an outpatient. She states she will return with any return of chest pain. Undiagnosed new problem with uncertain prognosis? @ -No Drug Therapy requiring intensive monitoring for toxicity (Heparin, Nitro, Insulin, Cardizem)? @ -No Were any procedures done? @ -No Diagnosis/symptom? @ -Chest pain, history of CAD with recent SD Acute, or Chronic, or Acute on Chronic? @ -Acute Uncomplicated (without systemic symptoms) or Complicated (systemic symptoms)? @ -[Complicated Side effects of treatment? @ -No Exacerbation, Progression, or Severe Exacerbation? @ -No Poses a threat to life or bodily function? How? (Chest pain, [place], SD, pneumonia, PE, COPD, DKA, ARF, appy, cholecystitis, CVA, Diverticulitis, Homicidal, Suicidal, threat to staff... and all critical care pts) @ -Moderate risk, history of CAD (Brandon Gay) Disposition <Sushma Mullen - Last Filed: 07/23/24 00:18> Is patient prescribed a controlled substance at d/c from ED?: No Time of Disposition: 23:35 <Brandon Gay - Last Filed: 07/23/24 22:47> Clinical Impression: Chest pain Disposition: HOME SELF-CARE Condition: Fair Instructions (If sedation given, give patient instructions): Chest Pain (ED) Referrals: Ga Hooper Jr, DO [Primary Care Provider] - 1-2 days John Montoya MD [STAFF PHYSICIAN] - 1-2 days
[2024-07-22 19:15] LABS: Basophils # (A) 0.1 k/uL (0-0.2); Basophils % (A) 1 %; Eosinophils # (A) 0.2 k/uL (0-0.7); Eosinophils % (A) 2 %; HGB 13.2 gm/dL (11.4-16.0); Lymphocytes # (A) 3.2 k/uL (1.0-4.8); Lymphocytes % (A) 36 %; MCH 29.3 pg (25.0-35.0); MCV 88.7 fL (80.0-100.0); Mean Platelet Volume 7.6; Monocytes # (A) 0.4 k/uL (0-1.0); Monocytes % (A) 5 %; Neutrophils # (A) 4.8 k/uL (1.3-7.7); Neutrophils % (A) 54 %; Platelet Count 333 k/uL (150-450); RDW 14.6 % (11.5-15.5); WBC 8.8 k/uL (3.8-10.6)
[2024-07-22 19:26] LABS: ALT 16 U/L (4-34); AST 19 U/L (14-36); African American GFR (CKD) >90 (>60 ml/min/1.73 sqM); Albumin 4.3 g/dL (3.5-5.0); Alkaline Phosphatase 105 U/L (38-126); Anion Gap 11 mmol/L; Blood Urea Nitrogen 9 mg/dL (7-17); Calcium 9.7 mg/dL (8.4-10.2); Carbon Dioxide 24 mmol/L (22-30); Chloride 101 mmol/L (98-107); Glucose 120 mg/dL (74-99); Magnesium 1.9 mg/dL (1.6-2.3); Non-African American GFR(CKD) >90 (>60 ml/min/1.73 sqM); Potassium 4.4 mmol/L (3.5-5.1); Sodium 136 mmol/L (137-145); Total Bilirubin 0.4 mg/dL (0.2-1.3); Total Protein 7.2 g/dL (6.3-8.2)
--- NOTE | 2024-07-22 20:29 | XR ---
EXAMINATION TYPE: XR chest 2V DATE OF EXAM: 07/22/2024 7:28 PM COMPARISON: None. CLINICAL INDICATION: Female, 48 years old with history of Chest Pain, TECHNIQUE: XR chest 2V view(s) obtained. FINDINGS: The heart size is normal. The pulmonary vasculature is normal. The lungs are clear. Pacemaker overlies left chest. IMPRESSION: 1. No acute pulmonary process. [facility], , 07/22/2024 8:26 PM
[2024-07-22 20:54] LABS: Partial Thromboplastin Time 27.8 sec (22.0-30.0)
[2024-07-22 23:52] VITALS: BP 110/70; PULSE 66; TEMP 98.1
== END 2024-07-22 23:52 | disposition home or self-care (01) ==
LOC: EC 17:01
DX: R07.89 Other chest pain (principal); F17.200 Nicotine dependence, unspecified, uncomplicated; I11.0 Hypertensive heart disease with heart failure; I50.9 Heart failure, unspecified; I25.10 Atherosclerotic heart disease of native coronary artery without angina pectoris; I25.2 Old myocardial infarction; I42.9 Cardiomyopathy, unspecified; Z88.8 Allergy status to other drugs, medicaments and biological substances; Z95.810 Presence of automatic (implantable) cardiac defibrillator
CPT/HCPCS: 36415; 71046; 80053; 83735; 84484; 85025; 85610; 85730; 93005; 99285

== ENCOUNTER → 2024-10-01 | Outpatient (CLI) | payer MEDICARE ==
[2024-10-02 02:36] LABS: Blood Urea Nitrogen 28.8 mg/dL (9.0-27.0); Calcium 9.5 mg/dL (8.7-10.3); Carbon Dioxide 28.9 mmol/L (21.6-31.8); Chloride 97 mmol/L (96-109); Glucose 89 mg/dL (70-110); Potassium 4.8 mmol/L (3.5-5.5); Sodium 138 mmol/L (135-145)
== END | disposition home or self-care (01) ==
LOC: LABWHC1 16:19
PROVIDERS: ATTEND Internal Medicine
DX: D50.9 Iron deficiency anemia, unspecified (principal); D86.0 Sarcoidosis of lung; D86.89 Sarcoidosis of other sites; I50.22 Chronic systolic (congestive) heart failure; I51.9 Heart disease, unspecified; I42.8 Other cardiomyopathies; R73.09 Other abnormal glucose
CPT/HCPCS: 36415; 80048

== ENCOUNTER 2024-11-21 14:44 | Inpatient (IN) | payer MEDICARE ==
[2024-11-21] MEDS: SODIUM CHLORIDE 0.9% 1,000 ML IV STA (15:54)
[2024-11-21] MEDS: ONDANSETRON 4 MG/2 ML VIAL IVP STA (15:59)
[2024-11-21 16:02] LABS: Basophils # (A) 0.02 10*3/uL (0.00-0.10); Basophils % (A) 0.3 %; HGB 14.4 g/dL (12.0-15.0); Lymphocytes # (A) 0.88 10*3/uL (0.90-5.00); Lymphocytes % (A) 11.6 %; MCH 29.2 pg (27.0-32.0); MCHC 34.3 g/dL (32.0-37.0); MCV 85.2 fL (80.0-97.0); Mean Platelet Volume 9.1 fL (9.5-12.2); Monocytes # (A) 0.29 10*3/uL (0.20-1.00); Monocytes % (A) 3.8 %; Platelet Count 324 10*3/uL (140-440); RBC 4.93 10*6/uL (4.10-5.20); RDW 16.6 % (11.5-14.5); WBC 7.61 10*3/uL (4.50-10.00)
[2024-11-21 16:11] LABS: Partial Thromboplastin Time 24.2 sec (22.0-30.0)
[2024-11-21 16:13] LABS: ALT 15 U/L (4-34); AST 18 U/L (14-36); African American GFR (CKD) >90 (>60 ml/min/1.73 sqM); Albumin 4.4 g/dL (3.5-5.0); Alkaline Phosphatase 83 U/L (38-126); Amylase 35 U/L (30-110); Anion Gap 8 mmol/L; Blood Urea Nitrogen 12 mg/dL (7-17); Calcium 10.1 mg/dL (8.4-10.2); Carbon Dioxide 28 mmol/L (22-30); Chloride 104 mmol/L (98-107); Glucose 126 mg/dL (74-99); Lipase 37 U/L (23-300); Non-African American GFR(CKD) 84 (>60 ml/min/1.73 sqM); Potassium 3.9 mmol/L (3.5-5.1); Sodium 140 mmol/L (137-145); Total Bilirubin 0.7 mg/dL (0.2-1.3); Total Protein 7.6 g/dL (6.3-8.2)
--- NOTE | 2024-11-21 16:31 | XR ---
EXAMINATION TYPE: XR chest 2V DATE OF EXAM: 11/21/2024 4:15 PM COMPARISON: 09/12/2024 CLINICAL INDICATION: Female, 49 years old with history of cough, , TECHNIQUE: AP and lateral views FINDINGS: Heart is borderline enlarged. Diffuse interstitial/vascular density. No consolidation or pleural effu juan a. Left anterior chest wall AICD generator with right ventricular lead. IMPRESSION: Borderline heart size and increased interstitial density. Consider pulmonary vascular congestion vers us bronchitis or asthma. [facility], Workstation: [email or web address], 11/21/2024 4:28 PM
[2024-11-21 17:02] LABS: Appearance,Urine Clear (Clear); Bilirubin,Urine Negative (Negative); Blood,Urine Negative (Negative); Color,Urine Yellow; Glucose,Urine (UA) 4+ (Negative); Leukocyte Esterase,Urine Negative (Negative); Nitrite,Urine Negative (Negative); Protein,Urine Trace (Negative); Specific Gravity,Urine 1.031 (1.001-1.035)
[2024-11-21 17:11] LABS: Amphetamine Screen,Urine Not Detected (NotDetected); Barbiturate Screen,Urine Not Detected (NotDetected); Benzodiazepines Screen,Urine Detected (NotDetected); Cocaine Screen,Urine Not Detected (NotDetected); Methadone Screen, Urine Not Detected (NotDetected); Opiate Screen,Urine Detected (NotDetected); Oxycodone Screen, Urine Not Detected (NotDetected); Phencyclidine Screen,Urine Not Detected (NotDetected); Tricyclic Antidepressant,Urine Not Detected (NotDetected); Urn Cannabinoid Scrn Detected (NotDetected)
[2024-11-21 17:11] LABS: Ketones,Urine 2+ (Negative)
--- NOTE | 2024-11-21 18:00 | ED ---
General Adult HPI - General Chief complaint: Nausea/Vomiting/Diarrhea Stated complaint: Vomitting/weakness Time Seen by Provider: 11/21/24 15:05 Source: patient, RN notes reviewed Mode of arrival: ambulatory Limitations: no limitations - History of Present Illness Initial comments: 49-year-old female presents to the emergency department for evaluation of abdominal pain and chest pain. Patient states that this started this morning. She reports multiple episodes of vomiting. She states that the pain is in her left upper abdomen and radiates to her lower abdomen. She does endorse nausea and vomiting. She does report that she is passing gas. She also reports that she feels more short of breath. She has a history of COPD and CHF. - Related Data Home Medications Medication Instructions Recorded Confirmed Omeprazole [PriLOSEC] 40 mg PO DAILY@0800 11/29/16 07/03/24 Atorvastatin [Lipitor] 80 mg PO DAILY@1900 11/30/16 07/03/24 Divalproex ER [Depakote ER] 1,000 mg PO DAILY@1200 02/06/17 07/03/24 Alendronate Sodium 70 mg PO COHEN@0800 06/29/17 07/03/24 Metoprolol Tartrate [Lopressor] 6.25 mg PO BID@1200,1900 09/25/19 07/03/24 Spironolactone [Aldactone] 25 mg PO BID@1000,1600 11/19/19 07/03/24 Escitalopram [Lexapro] 20 mg PO DAILY@1900 04/27/20 07/03/24 ALPRAZolam [Xanax] 0.25 mg PO BID PRN 02/12/23 07/03/24 Aspirin EC [Ecotrin Low Dose] 81 mg PO DAILY@1600 02/12/23 07/03/24 Gabapentin [Neurontin] 900 mg PO TID@1000,1600,0 02/12/23 07/03/24 Sacubitril/Valsartan [Entresto 24 1 tab PO DIRECTED 02/12/23 07/03/24 mg-26 mg Tablet] traZODone HCL [Desyrel] 25 mg PO HS@2200 02/12/23 07/03/24 Ezetimibe [Zetia] 10 mg PO DAILY@1200 04/23/23 07/03/24 Albuterol Sulfate [Ventolin HFA] 2 puff INHALATION RT-Q6H PRN 01/25/24 07/03/24 Patient Own Pump 0 bag 01/25/24 oxyCODONE-APAP 5-325MG [Percocet 1 tab PO BID PRN 01/25/24 07/03/24 5-325 mg] Apixaban [Eliquis] 5 mg PO BID@1000,2200 07/03/24 07/03/24 Bumetanide [BUMEX] 2 mg PO BID@0800,1200 07/03/24 07/03/24 Previous Rx's Medication Instructions Recorded Isosorbide Mononitrate ER [Imdur] 15 mg PO DAILY@0800 #30 tab 07/07/24 Mag Hydrox/Al Hydrox/Simeth 30 ml PO Q4HR PRN ml 07/07/24 [Maalox] Nicotine 21Mg/24Hr Patch [Habitrol] 1 patch TRANSDERM DAILY patch 07/07/24 Nitroglycerin Sl Tabs [Nitrostat] 0.4 mg SUBLINGUAL Q5M PRN #30 tab 07/07/24 Ticagrelor [Brilinta] 90 mg PO BID #30 tab 07/07/24 Allergies Allergy/AdvReac Type Severity Reaction Status Date / Time moxifloxacin HCl Allergy Rash/Hives Verified 11/21/24 14:53 [From Avelox] Review of Systems ROS Statement: Those systems with pertinent positive or pertinent negative responses have been documented in the HPI. ROS Other: All systems not noted in ROS Statement are negative. Past Medical History Past Medical History: Asthma, Coronary Artery Disease (CAD), Chest Pain / Angina, Heart Failure, COPD, Fibromyalgia, GERD/Reflux, Hyperlipidemia, Hypert ension, Myocardial Infarction ([place]), Musculoskeletal Disorder, Osteoarthritis (OA), Pneumonia Additional Past Medical History / Comment(s): Has Pain Pump and AICD. Ishemic Cardiomyopathy. Hx [place] X3 - 2004, 2012, 2017. Hx bronchitis. Chronic back pain, lumbar Degenerative Disc Disease, occasional neck pain, osteoporosis, migraines. Hx UTIs, kidney stones. Vertigo. Last Myocardial Infarction Date:: 2017 History of Any Multi-Drug Resistant Organisms: None Reported Past Surgical History: AICD, Heart Catheterization, Heart Catheterization With Stent, Orthopedic Surgery, Tubal Ligation Additional Past Surgical History / Comment(s): Multiple stents (pt unable to state how many), left hand surgery, pain clinic procedures, Medtr[employer] Pain Pump surgically implanted. Past Anesthesia/Blood Transfusion Reactions: No Reported Reaction, Motion Sickness Date of Last Stent Placement:: 08-13-16 Type of Cardiac Device: AICD Device Placement Date:: 2016 [employer] Past Psychological History: Anxiety, Bipolar, Depression Smoking Status: Former smoker Past Alcohol Use History: Occasional Past Drug Use History: Marijuana - Past Family History Mother Family Medical History: Coronary Artery Disease (CAD), Fibromyalgia, H yperlipidemia Additional Family Medical History / Comment(s): Emotional problems, bipolar. Father Family Medical History: CVA/TIA, Fibromyalgia, Hyperlipidemia, Hypertension, Musculoskeletal Disorder Additional Family Medical History / Comment(s): MS. Sister(s) History Unknown: Yes Family Medical History: Hyperlipidemia General Exam Limitations: no limitations General appearance: alert, in no apparent distress Head exam: Present: atraumatic, normocephalic, normal inspection Eye exam: Present: normal appearance, PERRL, EOMI. Absent: scleral icterus, conjunctival injection, periorbital swelling ENT exam: Present: normal exam, mucous membranes moist Neck exam: Present: normal inspection. Absent: tenderness, meningismus, lymphadenopathy Respiratory exam: Present: rales. Absent: respiratory distress, wheezes, rhonchi, stridor Cardiovascular Exam: Present: regular rate, normal rhythm, normal heart sounds. Absent: systolic murmur, diastolic murmur, rubs, gallop, clicks GI/Abdominal exam: Present: soft, tenderness, normal bowel sounds. Absent: distended, guarding, rebound, rigid Extremities exam: Present: normal inspection, full ROM, normal capillary refill. Absent: tenderness, pedal edema, joint swelling, calf tenderness Back exam: Present: normal inspection Neurological exam: Present: alert, oriented X3 Psychiatric exam: Present: normal affect, normal mood Skin exam: Present: warm, dry, intact, normal color. Absent: rash Course Vital Signs 11/21/24 11/21/24 11/21/24 14:50 16:54 19:37 Temperature 98.0 F 99.0 F 98.1 F Pulse Rate 81 76 Respiratory 18 20 Rate Blood Pressure 136/84 126/76 O2 Sat by Pulse 97 99 Oximetry Medical Decision Making - Medical Decision Making Was pt. sent in by a medical professional or institution (PATRICIA Hicks, FIRE COORDINATOR, urgent care, hospital, or residential...) When possible be specific @ -No Did you speak to anyone other than the patient for history (EMS, parent, family, police, friend...)? What history was obtained from this source @ -No Did you review nursing and triage notes (agree or disagree)? Why? @ -I reviewed and agree with nursing and triage notes Were old charts reviewed (outside hosp., previous admission, EMS record, old EKG, old radiological studies, urgent care reports/EKG's, residential records)? Report findings @ -No old charts were reviewed Differential Diagnosis (chest pain, altered mental status, abdominal pain women, abdominal pain men, vaginal bleeding, weakness, fever, dyspnea, syncope, headache, dizziness, GI bleed, back pain, seizure, CVA, palpatations, mental health, musculoskeletal)? @ -Differential Abdominal Pain Women: Appendicitis, Cholecystitis, diverticulosis, ischemic bowel, pancreatitis, hepatitis, UTI, gastroenteritis, AAA, incarcerated hernia, bowel obstruction, constipation, inflammatory bowel, hepatitis, peptic ulcer disease, splenic infarction, perforated viscus, vulvitis, ovarian torsion, PID, kidney stone, placenta abruption, this is not meant to be an all-inclusive list Differential Chest Pain: Stable Angina, Unstable Angina, STEMI, NSTEMI Aortic Dissection, Pneumothorax, Musculoskeletal, Esophageal Spasm GERD, Cholecystitis, Pancreatitis, Zoster, this is not meant to be an all-inclusive list. h EKG interpreted by me (3pts min.). @ -EKG@ X-rays interpreted by me (1pt min.). @ -Chest x-ray reveals no acute process CT interpreted by me (1pt min.). @ -CT of the abdomen pelvis shows correlate for enteritis s U/S interpreted by me (1pt. min.). @ -None done What testing was considered but not performed or refused? (CT, X-rays, U/S, labs)? Why? @ -None What meds were considered but not given or refused? Why? @ -None Did you discuss the management of the patient with other professionals (professionals i.e. PATRICIA Hicks, FIRE COORDINATOR, lab, RT, psych nurse, delinquency prevention social worker, parachute marker, teacher, credit control officer, correctional case manager)? Give summary @ -Management discussed with Dr. Hooper who recommends attempting discharge with the patient but if symptoms are unable to be controlled can be admitted Was smoking cessation discussed for >3mins.? @ -No Was critical care preformed (if so, how long)? @ -No Were there social determinants of health that impacted care today? How? (Homelessness, low income, unemployed, alcoholism, drug addiction, transportation, low edu. Level, literacy, decrease access to med. care, [facility], rehab)? @ -No Was there de-escalation of care discussed even if they declined (Discuss DNR or withdrawal of care, Hospice)? DNR status @ -No What co-morbidities impacted this encounter? (DM, HTN, Smoking, COPD, CAD, Cancer, CVA, ARF, Chemo, Hep., AIDS, mental health diagnosis, sleep apnea, morbid obesity)? @ -CHF, COPD, AICD Was patient admitted / discharged? Hospital course, mention meds given and route, prescriptions, significant lab abnormalities, going to OR and other pertinent info. @ -Admitted. Patient presented emergency department for multiple complaints. Laboratory studies reveal no significant leukocytosis, hemoglobin stable at 14.4; normal coagulation studies; CMP is nonactionable, negative initial troponin. UA shows no evidence of infectious process. Urine drug screen is positive for opiates, benzos, marijuana. She is negative for COVID, flu, RSV. Chest x-ray reveals cardiomegaly and mild pulmonary venous congestion without evidence for acute process. CT of the abdomen pelvis reveals findings of enteritis. Patient was provided fluids, antiemetic, medication for pain control in the emergency department. I discussed the management with Dr. Hooper who accepts admission. Case discussed with Dr. Horne who also evaluated the patient Undiagnosed new problem with uncertain prognosis? @ -No Drug Therapy requiring intensive monitoring for toxicity (Heparin, Nitro, Insulin, Cardizem)? @ -No Were any procedures done? @ -No Diagnosis/symptom? @ -Abdominal pain, chest pain Acute, or Chronic, or Acute on Chronic? @ -Acute Uncomplicated (without systemic symptoms) or Complicated (systemic symptoms)? @ -Uncomplicated Side effects of treatment? @ -No Exacerbation, Progression, or Severe Exacerbation? @ -No Poses a threat to life or bodily function? How? (Chest pain, [place], [place], pneumonia, PE, COPD, DKA, ARF, appy, cholecystitis, CVA, Diverticulitis, Homicidal, Suicidal, threat to staff... and all critical care pts) @ -No - Lab Data Result diagrams: 11/21/24 15:47 11/21/24 15:47 Lab Results 11/21/24 11/21/24 11/21/24 Range/Units 15:47 15:47 15:47 WBC 7.61 (4.50-10.00) 10*3/uL RBC 4.93 (4.10-5.20) 10*6/uL Hgb 14.4 (12.0-15.0) g/dL Hct 42.0 (37.2-46.3) % MCV 85.2 (80.0-97.0) fL MCH 29.2 (27.0-32.0) pg MCHC 34.3 (32.0-37.0) g/dL Plt Count 324 (140-440) 10*3/uL MPV 9.1 L (9.5-12.2) fL Immature Gran % (Auto) 0.3 % Neutrophils % 84.0 % Lymphocytes % 11.6 % Monocytes % 3.8 % Eosinophils % 0.0 % Basophils % 0.3 % Immature Gran # 0.02 (0.00-0.04) 10*3/uL Neutrophils # 6.40 (1.80-7.70) 10*3/uL Lymphocytes # 0.88 L (0.90-5.00) 10*3/uL Monocytes # 0.29 (0.20-1.00) 10*3/uL Eosinophils # 0.00 L (0.04-0.35) 10*3/uL Basophils # 0.02 (0.00-0.10) 10*3/uL PT (10.0-12.5) sec INR (<1.2) APTT (22.0-30.0) sec Sodium 140 (137-145) mmol/L Potassium 3.9 (3.5-5.1) mmol/L Chloride 104 (98-107) mmol/L Carbon Dioxide 28 (22-30) mmol/L Anion Gap 8 mmol/L BUN 12 (7-17) mg/dL Creatinine 0.82 (0.52-1.04) mg/dL Est GFR (CKD-EPI)AfAm >90 (>60 ml/min/1.73 sqM) Est GFR (CKD-EPI)NonAf 84 (>60 ml/min/1.73 sqM) Glucose 126 H (74-99) mg/dL Calcium 10.1 (8.4-10.2) mg/dL Total Bilirubin 0.7 (0.2-1.3) mg/dL AST 18 (14-36) U/L ALT 15 (4-34) U/L Alkaline Phosphatase 83 (38-126) U/L Troponin I (0.000-0.034) ng/mL Total Protein 7.6 (6.3-8.2) g/dL Albumin 4.4 (3.5-5.0) g/dL Amylase 35 (30-110) U/L Lipase 37 (23-300) U/L Urine Color Yellow Urine Appearance Clear (Clear) Urine pH 6.0 (5.0-8.0) Ur Specific [place] 1.031 (1.001-1.035) Urine Protein Trace H (Negative) Urine Glucose (UA) 4+ H (Negative) Urine Ketones 2+ H (Negative) Urine Blood Negative (Negative) Urine Nitrite Negative (Negative) Urine Bilirubin Negative (Negative) Urine Urobilinogen 2.0 (<2.0) mg/dL Ur Leukocyte Esterase Negative (Negative) Urine Opiates Screen (NotDetected) Ur Oxycodone Screen (NotDetected) Urine Methadone Screen (NotDetected) Ur Barbiturates Screen (NotDetected) U Tricyclic Antidepress (NotDetected) Ur Phencyclidine Scrn (NotDetected) Ur Amphetamines Screen (NotDetected) U Methamphetamines Scrn (NotDetected) U Benzodiazepines Scrn (NotDetected) Urine Cocaine Screen (NotDetected) U Marijuana (THC) Screen (NotDetected) Influenza Type A (PCR) (Not Detectd) Influenza Type B (PCR) (Not Detectd) RSV (PCR) (Not Detectd) SARS-CoV-2 (PCR) (Not Detectd) 11/21/24 11/21/24 11/21/24 Range/Units 15:47 15:47 16:54 WBC (4.50-10.00) 10*3/uL RBC (4.10-5.20) 10*6/uL Hgb (12.0-15.0) g/dL Hct (37.2-46.3) % MCV (80.0-97.0) fL MCH (27.0-32.0) pg MCHC (32.0-37.0) g/dL Plt Count (140-440) 10*3/uL MPV (9.5-12.2) fL Immature Gran % (Auto) % Neutrophils % % Lymphocytes % % Monocytes % % Eosinophils % % Basophils % % Immature Gran # (0.00-0.04) 10*3/uL Neutrophils # (1.80-7.70) 10*3/uL Lymphocytes # (0.90-5.00) 10*3/uL Monocytes # (0.20-1.00) 10*3/uL Eosinophils # (0.04-0.35) 10*3/uL Basophils # (0.00-0.10) 10*3/uL PT 11.0 (10.0-12.5) sec INR 1.0 (<1.2) APTT 24.2 (22.0-30.0) sec Sodium (137-145) mmol/L Potassium (3.5-5.1) mmol/L Chloride (98-107) mmol/L Carbon Dioxide (22-30) mmol/L Anion Gap mmol/L BUN (7-17) mg/dL Creatinine (0.52-1.04) mg/dL Est GFR (CKD-EPI)AfAm (>60 ml/min/1.73 sqM) Est GFR (CKD-EPI)NonAf (>60 ml/min/1.73 sqM) Glucose (74-99) mg/dL Calcium (8.4-10.2) mg/dL Total Bilirubin (0.2-1.3) mg/dL AST (14-36) U/L ALT (4-34) U/L Alkaline Phosphatase (38-126) U/L Troponin I <0.012 (0.000-0.034) ng/mL Total Protein (6.3-8.2) g/dL Albumin (3.5-5.0) g/dL Amylase (30-110) U/L Lipase (23-300) U/L Urine Color Urine Appearance (Clear) Urine pH (5.0-8.0) Ur Specific [place] (1.001-1.035) Urine Protein (Negative) Urine Glucose (UA) (Negative) Urine Ketones (Negative) Urine Blood (Negative) Urine Nitrite (Negative) Urine Bilirubin (Negative) Urine Urobilinogen (<2.0) mg/dL Ur Leukocyte Esterase (Negative) Urine Opiates Screen Detected H (NotDetected) Ur Oxycodone Screen Not Detected (NotDetected) Urine Methadone Screen Not Detected (NotDetected) Ur Barbiturates Screen Not Detected (NotDetected) U Tricyclic Antidepress Not Detected (NotDetected) Ur Phencyclidine Scrn Not Detected (NotDetected) Ur Amphetamines Screen Not Detected (NotDetected) U Methamphetamines Scrn Not Detected (NotDetected) U Benzodiazepines Scrn Detected H (NotDetected) Urine Cocaine Screen Not Detected (NotDetected) U Marijuana (THC) Screen Detected H (NotDetected) Influenza Type A (PCR) (Not Detectd) Influenza Type B (PCR) (Not Detectd) RSV (PCR) (Not Detectd) SARS-CoV-2 (PCR) (Not Detectd) 11/21/24 Range/Units 18:05 WBC (4.50-10.00) 10*3/uL RBC (4.10-5.20) 10*6/uL Hgb (12.0-15.0) g/dL Hct (37.2-46.3) % MCV (80.0-97.0) fL MCH (27.0-32.0) pg MCHC (32.0-37.0) g/dL Plt Count (140-440) 10*3/uL MPV (9.5-12.2) fL Immature Gran % (Auto) % Neutrophils % % Lymphocytes % % Monocytes % % Eosinophils % % Basophils % % Immature Gran # (0.00-0.04) 10*3/uL Neutrophils # (1.80-7.70) 10*3/uL Lymphocytes # (0.90-5.00) 10*3/uL Monocytes # (0.20-1.00) 10*3/uL Eosinophils # (0.04-0.35) 10*3/uL Basophils # (0.00-0.10) 10*3/uL PT (10.0-12.5) sec INR (<1.2) APTT (22.0-30.0) sec Sodium (137-145) mmol/L Potassium (3.5-5.1) mmol/L Chloride (98-107) mmol/L Carbon Dioxide (22-30) mmol/L Anion Gap mmol/L BUN (7-17) mg/dL Creatinine (0.52-1.04) mg/dL Est GFR (CKD-EPI)AfAm (>60 ml/min/1.73 sqM) Est GFR (CKD-EPI)NonAf (>60 ml/min/1.73 sqM) Glucose (74-99) mg/dL Calcium (8.4-10.2) mg/dL Total Bilirubin (0.2-1.3) mg/dL AST (14-36) U/L ALT (4-34) U/L Alkaline Phosphatase (38-126) U/L Troponin I (0.000-0.034) ng/mL Total Protein (6.3-8.2) g/dL Albumin (3.5-5.0) g/dL Amylase (30-110) U/L Lipase (23-300) U/L Urine Color Urine Appearance (Clear) Urine pH (5.0-8.0) Ur Specific [place] (1.001-1.035) Urine Protein (Negative) Urine Glucose (UA) (Negative) Urine Ketones (Negative) Urine Blood (Negative) Urine Nitrite (Negative) Urine Bilirubin (Negative) Urine Urobilinogen (<2.0) mg/dL Ur Leukocyte Esterase (Negative) Urine Opiates Screen (NotDetected) Ur Oxycodone Screen (NotDetected) Urine Methadone Screen (NotDetected) Ur Barbiturates Screen (NotDetected) U Tricyclic Antidepress (NotDetected) Ur Phencyclidine Scrn (NotDetected) Ur Amphetamines Screen (NotDetected) U Methamphetamines Scrn (NotDetected) U Benzodiazepines Scrn (NotDetected) Urine Cocaine Screen (NotDetected) U Marijuana (THC) Screen (NotDetected) Influenza Type A (PCR) Not Detected (Not Detectd) Influenza Type B (PCR) Not Detected (Not Detectd) RSV (PCR) Not Detected (Not Detectd) SARS-CoV-2 (PCR) Not Detected (Not Detectd) Disposition Clinical Impression: Chest pain, Abdominal pain Disposition: ADMITTED IP TO THIS HOSP Condition: Stable Is patient prescribed a controlled substance at d/c from ED?: No
[2024-11-21] MEDS: KETOROLAC 15 MG/ML 1 ML VIAL IVP STA (18:04)
[2024-11-21 18:55] LABS: Influenza A Not Detected (Not Detectd); Influenza B Not Detected (Not Detectd); RSV Not Detected (Not Detectd)
--- NOTE | 2024-11-21 19:13 | CT ---
EXAMINATION TYPE: CT abdomen pelvis w con DATE OF EXAM: 11/21/2024 7:09 PM COMPARISON: None. CLINICAL INDICATION: Female, 49 years old with history of abd pain, Abdominal pain. N/V. CP. Cold swe ats. TECHNIQUE:CT scan of the abdomen and pelvis is performed without Oral Contrast and with IV Contrast, patient injected with 100 ml mL of Isovue 300. CT DLP: 1354.2 mGycm, Automated exposure control for dose reduction was used. FINDINGS: LUNG BASES-: No visible nodule. No infiltrate. LIVER/GB: No calcified gallstones. No space occupying hepatic lesion. Biliary tree is of normal ca liber. PANCREAS: No inflammation. No distinct mass. SPLEEN: No splenic enlargement. No lesion seen. ADRENALS: No nodule. No thickening. KIDNEYS/BLADDER: No hydronephrosis. No nephrolithiasis. No distinct renal mass. Urinary bladder g rossly unremarkable. BOWEL: Normal appendix. Distention proximal small bowel loops with mild wall thickening may reflect e nteritis. Distal small bowel and colon are normal caliber. No evidence of abscess or free air. GENITAL ORGANS: No gross abnormality. LYMPH NODES: No greater than 1cm abdominal or pelvic lymph nodes are appreciated. AORTA: No significant abnormality. OSSEOUS STRUCTURES: No significant abnormality is seen. OTHER: No significant additional abnormality is seen. IMPRESSION: 1. Correlate for small bowel enteritis. [facility] Spike Pastrana, , 11/21/2024 7:11 PM
[2024-11-21] MEDS ORDERED: KETOROLAC 15 MG/ML 1 ML VIAL IVP PRN (20:05)
[2024-11-21] MEDS ORDERED: ACETAMINOPHEN TAB 325 MG TAB PO PRN (20:05)
[2024-11-21] MEDS ORDERED: NALOXONE 0.4 MG/ML 1 ML VIAL IV PRN (20:05)
[2024-11-21] MEDS: SODIUM CHLORIDE 0.9% 1,000 ML IV SCH (20:21)
[2024-11-21] MEDS: ONDANSETRON 4 MG/2 ML VIAL IVP PRN (20:21)
[2024-11-21] MEDS: MORPHINE SULFATE 4 MG/ML SYRINGE IV PRN (20:22)
[2024-11-21] MEDS: ASPIRIN 81 MG PO STA (23:25)
[2024-11-22] MEDS ORDERED: HEPARIN SODIUM 1,000 UN/ML (10ML VL) IV PRN (00:40)
[2024-11-22] MEDS: HEPARIN SODIUM 1,000 UN/ML (10ML VL) IV ONE (01:10)
[2024-11-22] MEDS: HEPARIN SOD,PORK IN 0.45% NACL 25,000 UNIT in 0.45% NACL 1 250ML.BAG IV SCH (01:10)
[2024-11-22] MEDS: IPRATROPIUM 0.5 MG/2.5 ML NEBU INHALATION STA (07:59)
[2024-11-22] MEDS ORDERED: DEXTROSE 50% SYRINGE 50 ML IVP PRN ×4 (08:31→10:48)
[2024-11-22] MEDS: FUROSEMIDE 10 MG/ML 4 ML VIAL IV STA (08:37)
[2024-11-22] MEDS: INSULIN LISPRO (HumaLOG) 100 UNIT/ML 10 mL VL SQ SCH ×2 (08:40→13:11)
[2024-11-22 08:41] LABS: Glucose,Whole Blood 127 mg/dL (70-110)
[2024-11-22] MEDS: PANTOPRAZOLE 40 MG/10 ML VIAL IVP SCH (08:46)
--- NOTE | 2024-11-22 10:05 | P.CRDCN ---
History of Present Illness History of present illness: HISTORY OF PRESENT ILLNESS: This is a 49-year-old female with a past medical history significant for coronary artery disease with previous stenting, ischemic cardiomyopathy, AICD implantation, hypertension, hyperlipidemia, COPD, nicotine dependence, DVT, and obesity. Patient follows in the office with Dr. Montoya. We have been asked to see the patient in consultation for chest pain. Patient examined at the bedside. Patient presented to the hospital with a chief complaint of shortness of breath. She states her shortness of breath started yesterday. Patient also has a history of COPD but apparently stopped using her inhalers on an outpatient basis. Patient denies having any chest pain or pressure. DIAGNOSTICS: - EKG reveals sinus mechanism with no signs of acute ischemia. - Chest xray borderline heart size and increased interstitial density. Consider pulmonary vascular congestion versus bronchitis or asthma. - Laboratory data: WBC 7.61. Hemoglobin 14.4. Platelet count 324. Sodium 140. Potassium 3.9. BUN 12. Creatinine 0.82. Troponin 0.012. 0.037. 0.060. 0.091. - Current home cardiac medication list has not been updated at the time of this dictation - Most recent echocardiogram obtained in June 2024 revealing ejection fraction 15 to 20%, mild pulmonary hypertension, trace MR, moderate AI - Cardiac catheterization history: June 2024 with stenting of the RCA REVIEW OF SYSTEMS: At the time of my exam: CONSTITUTIONAL: Denies fever or chills. HEENT: Denies blurred vision, vision changes, or eye pain. Denies hemoptysis CARDIOVASCULAR: Denies chest pain. Denies orthopnea. Denies PND. Denies palpitations RESPIRATORY: Denies shortness of breath. GASTROINTESTINAL: Denies abdominal pain. Denies nausea or vomiting. HEMATOLOGIC: Denies bleeding disorders. GENITOURINARY: Denies any blood in urine. SKIN: Denies pruitis. Denies rash. PHYSICAL EXAM: VITAL SIGNS: Reviewed. GENERAL: Well-developed in no acute distress. HEENT: Head is normocephalic. Pupils are equal, round. Sclerae anicteric. Mucous membranes of the mouth are moist. Neck supple. No JVD or thyromegaly LUNGS: Respirations even and unlabored. Lungs with expiratory wheezing noted HEART: Regular rate and rhythm. S1 and S2 heard. ABDOMEN: Soft. Nondistended. Nontender. EXTREMITIES: Normal range of motion. No clubbing or cyanosis. Peripheral pulses intact. No lower extremity edema NEUROLOGIC: Awake and alert. Oriented x 3. ASSESSMENT: Shortness of breath Acute COPD exacerbation Acute on chronic heart failure with reduced EF, 15 to 20% Elevated troponins, type II [place] secondary to oxygen supply/demand mismatch Coronary artery disease with previous stenting Ischemic cardiomyopathy History of AICD implantation Hypertension Hyperlipidemia Nicotine dependence Obesity: BMI 37.5 PLAN: Obtain 2D echo to assess cardiac structure and function Discontinue IV heparin Resume home cardiac medications when medication list has been verified Begin IV Lasix 40 mg every 12 hours Daily weights, accurate intake and output, monitoring of kidney function Consult pulmonary for evaluation Further recommendations pending patient course Nurse practitioner note has been reviewed by physician. Signing provider agrees with the documented findings, assessment, and plan of care documented by NUCLEAR CHEMISTRY TECHNICIAN as a scribe. Past Medical History Past Medical History: Asthma, Coronary Artery Disease (CAD), Chest Pain / Angina, Heart Failure, COPD, Fibromyalgia, GERD/Reflux, Hyperlipidemia, Hypertension, Myocardial Infarction (NH), Musculoskeletal Disorder, Osteoarthritis (OA), Pneumonia Additional Past Medical History / Comment(s): Has Pain Pump and AICD. Ishemic Cardiomyopathy. Hx [place] X3 - 2004, 2012, 2017. Hx bronchitis. Chronic back pain, lumbar Degenerative Disc Disease, occasional neck pain, osteoporosis, migraines. Hx UTIs, kidney stones. Vertigo. Last Myocardial Infarction Date:: 2016 History of Any Multi-Drug Resistant Organisms: None Reported Past Surgical History: AICD, Heart Catheterization, Heart Catheterization With Stent, Orthopedic Surgery, Tubal Ligation Additional Past Surgical History / Comment(s): Multiple stents (pt unable to state how many), left hand surgery, pain clinic procedures, Medtronic Pain Pump surgically implanted. Past Anesthesia/Blood Transfusion Reactions: No Reported Reaction, Motion Sickness Date of Last Stent Placement:: 08-13-16 Type of Cardiac Device: AICD Device Placement Date:: 2016 [employer]. Past Psychological History: Anxiety, Bipolar, Depression Smoking Status: Former smoker Past Alcohol Use History: Occasional Past Drug Use History: Marijuana - Past Family History Mother Family Medical History: Coronary Artery Disease (CAD), Fibromyalgia, Hyperlipidemia Additional Family Medical History / Comment(s): Emotional problems, bipolar. Father Family Medical History: CVA/TIA, Fibromyalgia, Hyperlipidemia, Hypertension, Musculoskeletal Disorder Additional Family Medical History / Comment(s): MS. Sister(s) History Unknown: Yes Family Medical History: Hyperlipidemia Medications and Allergies Home Medications Medication Instructions Recorded Confirmed Type Omeprazole [PriLOSEC] 40 mg PO DAILY 11/29/16 11/22/24 History Atorvastatin [Lipitor] 80 mg PO DAILY 11/30/16 11/22/24 History Divalproex ER [Depakote ER] 1,000 mg PO DAILY 02/06/17 11/22/24 History Alendronate Sodium 70 mg PO COHEN 06/29/17 11/22/24 History Spironolactone [Aldactone] 25 mg PO DAILY 11/19/19 11/22/24 History Escitalopram [Lexapro] 20 mg PO DAILY 04/27/20 11/22/24 History ALPRAZolam [Xanax] 0.25 mg PO BID PRN 02/12/23 11/22/24 History Aspirin EC [Ecotrin Low Dose] 81 mg PO DAILY 02/12/23 11/22/24 History Gabapentin [Neurontin] 900 mg PO TID 02/12/23 11/22/24 History Sacubitril/Valsartan [Entresto 24 1 tab PO BID 02/12/23 11/22/24 History mg-26 mg Tablet] Albuterol Sulfate [Ventolin HFA] 2 puff INHALATION RT-Q6H PRN 01/25/24 11/22/24 History Patient Own Pump 0 bag 01/25/24 History Apixaban [Eliquis] 2.5 mg PO BID 07/03/24 11/22/24 History Bumetanide [BUMEX] 1 mg PO BID 07/03/24 11/22/24 History Albuterol Nebulized [Ventolin 2.5 mg INHALATION RT-Q6H PRN 11/22/24 11/22/24 History Nebulized] Baclofen 10 mg PO BID 11/22/24 11/22/24 History Bisoprolol [Zebeta] 2.5 mg PO BID 11/22/24 11/22/24 History Clopidogrel [Plavix] 75 mg PO DAILY 11/22/24 11/22/24 History Docusate [Colace] 100 mg PO DAILY PRN 11/22/24 11/22/24 History Empagliflozin [Jardiance] 10 mg PO DAILY 11/22/24 11/22/24 History Evolocumab [Repatha Sureclick] 140 mg SQ Q14D 11/22/24 11/22/24 History Isosorbide Mononitrate ER [Imdur] 30 mg PO DAILY 11/22/24 11/22/24 History Nitroglycerin Sl Tabs [Nitrostat] 0.4 mg SL Q5M PRN 11/22/24 11/22/24 History metOLazone [Zaroxolyn] 2.5 mg PO DIRECTED 11/22/24 11/22/24 History oxyCODONE-APAP 7.5-325MG [Percocet 1 tab PO BID PRN 11/22/24 11/22/24 History 7.5-325 mg] predniSONE 10 mg PO DIRECTED #30 tab 11/22/24 Rx Allergies Allergy/AdvReac Type Severity Reaction Status Date / Time moxifloxacin HCl Allergy Rash/Hives Verified 11/21/24 21:01 [From Avelox] Physical Exam Vitals: Vital Signs Temp Pulse Resp BP Pulse Ox 11/22/24 08:47 20 11/22/24 08:07 87 21 131/75 94 L 11/22/24 08:05 101 H 22 11/22/24 07:59 92 18 11/22/24 06:41 98 22 145/86 94 L 11/22/24 05:20 98.9 F 105 H 22 145/108 93 L 11/22/24 03:00 93 22 150/91 93 L 11/22/24 01:00 99.2 F 92 22 136/80 95 11/21/24 22:08 99.0 F 11/21/24 22:02 92 18 143/88 92 L 11/21/24 20:41 92 18 166/83 92 L 11/21/24 19:37 98.1 F 11/21/24 16:54 99.0 F 76 20 126/76 99 11/21/24 14:50 98.0 F 81 18 136/84 97 Results 11/21/24 15:47 11/21/24 15:47 Cardiac Enzymes 11/21/24 11/21/24 11/21/24 Range/Units 15:47 15:47 20:51 AST 18 (14-36) U/L Troponin I <0.012 0.037 H* (0.000-0.034) ng/mL 11/21/24 11/22/24 Range/Units 23:13 02:18 AST (14-36) U/L Troponin I 0.060 H* 0.091 H* (0.000-0.034) ng/mL Coagulation 11/21/24 11/22/24 Range/Units 15:47 06:44 PT 11.0 (10.0-12.5) sec APTT 24.2 41.4 H (22.0-30.0) sec CBC 11/21/24 Range/Units 15:47 WBC 7.61 (4.50-10.00) 10*3/uL RBC 4.93 (4.10-5.20) 10*6/uL Hgb 14.4 (12.0-15.0) g/dL Hct 42.0 (37.2-46.3) % Plt Count 324 (140-440) 10*3/uL Comprehensive Metabolic Panel 11/21/24 Range/Units 15:47 Sodium 140 (137-145) mmol/L Potassium 3.9 (3.5-5.1) mmol/L Chloride 104 (98-107) mmol/L Carbon Dioxide 28 (22-30) mmol/L BUN 12 (7-17) mg/dL Creatinine 0.82 (0.52-1.04) mg/dL Glucose 126 H (74-99) mg/dL Calcium 10.1 (8.4-10.2) mg/dL AST 18 (14-36) U/L ALT 15 (4-34) U/L Alkaline Phosphatase 83 (38-126) U/L Total Protein 7.6 (6.3-8.2) g/dL Albumin 4.4 (3.5-5.0) g/dL Current Medications Generic Name Dose Route Start Last Admin Trade Name Freq PRN Reason Stop Dose Admin Acetaminophen 650 mg 11/21/24 20:05 Acetaminophen Tab 325 Mg Tab PO Q6HR PRN Mild Pain or Fever > 100.5 Albuterol/Ipratropium 3 ml 11/22/24 09:01 Ipratropium-Albuterol 3 Ml Neb INHALATION RT-QID PRN Shortness Of Breath Or Wheezing Budesonide/Formoterol Fumarate 2 puff 11/22/24 09:30 Symbicort 160-4.5 Mcg Inhaler INHALATION RT-BID [facility] Furosemide 40 mg 11/22/24 21:00 Furosemide 10 Mg/Ml 4 Ml Vial IV Q12HR [facility] Heparin Sodium (Porcine) 0 unit 11/22/24 00:40 Heparin Sodium 1,000 Un/Ml (10ml Vl) IV PER PROTOCOL PRN Low PTT Protocol Heparin Sodium/Sodium Chloride 250 mls @ 10 mls/hr 11/22/24 00:45 11/22/24 01:10 25,000 unit/ Sodium Chloride IV 10.754 units/kg/hr .Q24H PALMA 10 mls/hr Administration Protocol 10.754 UNITS/KG/HR Morphine Sulfate 4 mg 11/21/24 20:05 11/22/24 05:26 Morphine Sulfate 4 Mg/Ml Syringe IV 4 mg Q4HR PRN Administration Severe Pain (Scale 7 to 10) Naloxone HCl 0.2 mg 11/21/24 20:05 Naloxone 0.4 Mg/Ml 1 Ml Vial IV Q2M PRN Opioid Reversal Ondansetron HCl 4 mg 11/21/24 20:05 11/21/24 20:21 Ondansetron 4 Mg/2 Ml Vial IVP 4 mg Q8HR PRN Administration Nausea And Vomiting Pantoprazole Sodium 40 mg 11/22/24 09:00 11/22/24 08:46 Pantoprazole 40 Mg/10 Ml Vial IVP 40 mg DAILY PALMA Administration 11/21/24 15:47 11/21/24 15:47
[2024-11-22] MEDS: SYMBICORT 160-4.5 MCG INHALER INHALATION SCH (11:05)
--- NOTE | 2024-11-22 11:37 | P.HPIM ---
History of Present Illness H&P Date: 11/22/24 Chief Complaint: Chest pain, SOB, nausea, vomiting This is a 49-year-old female with past medical history significant for recent cardiac catheterization 07/16 reported in-stent occlusion of the LAD as well as intermediate to severe disease involving the mid RCA; evaluated by CTS-not a suitable candidate and underwent balloon angioplasty for RCA lesion with maximizing medical therapy in regards to LAD in- stent stenosis, CAD with prior triple-vessel stenting, ischemic cardiomyopathy EF 25%, AICD,systolic CHF, apical thrombus 01/26/2024- anticoagulated on Eliquis, hypertension, hyperlipidemia, chronic hypoxic respiratory failure wears 2 L nasal cannula at home,COPD, prior nicotine dependence, chronic pain with pain pump and multiple other medical issues presented to the ER with complaints of upper respiratory infection , productive cough with salmon sputum ,shortness of breath that started last Monday upon awakening. yesterday developed nonradiating left chest pain at rest lasting approximately 30 minutes, spontaneously resolved, accompanied by shortness of breath, nausea and vomiting. Denies abdominal pain. Passing flatus. Patient previously informed cardiology that she had stopped using her inhalers outpatient. On admission patient was O2 sat of 93% on room air, currently 94% on 2 L nasal cannula. Tmax 99.2, WBC 7.61. Hemoglobin 14.4, platelets 324, INR 1. Electrolytes and renal function within normal limits. Glucose 126. ProBnp pending. Troponins less than 0.012, 0.037, 0.060, 0.091. Heparin drip initiated in the ER.EKG reported sinus, chest x-ray reported borderline heart size, increased interstitial density, consider pulmonary vascular congestion versus bronchitis or asthma. Abdomen/pelvis CT reported distention of proximal small bowel loops with mild wall thickening may reflect enteritis. Distal small bowel and colon are normal caliber. No evidence of abscess or free air.Denies chest pain or palpitations. Viral studies negative. Toxicology detected opiates, benzodiazepines and marijuana. Review of Systems ROS Statement: Those systems with pertinent positive or pertinent negative responses have been documented in the HPI. ROS Other: All systems not noted in ROS Statement are negative. Past Medical History Past Medical History: Asthma, Coronary Artery Disease (CAD), Chest Pain / Angina, Heart Failure, COPD, Fibromyalgia, GERD/Reflux, Hyperlipidemia, Hypertension, Myocardial Infarction ([place]), Musculoskeletal Disorder, Osteoarthritis (OA), Pneumonia Additional Past Medical History / Comment(s): Has Pain Pump and AICD. Ishemic Cardiomyopathy. Hx [place] X3 - 2004, 2012, 2017. Hx bronchitis. Chronic back pain, lumbar Degenerative Disc Disease, occasional neck pain, osteoporosis, migraines. Hx UTIs, kidney stones. Vertigo. Last Myocardial Infarction Date:: 2016 History of Any Multi-Drug Resistant Organisms: None Reported Past Surgical History: AICD, Heart Catheterization, Heart Catheterization With Stent, Orthopedic Surgery, Tubal Ligation Additional Past Surgical History / Comment(s): Multiple stents (pt unable to state how many), left hand surgery, pain clinic procedures, Medtronic Pain Pump surgically implanted. Past Anesthesia/Blood Transfusion Reactions: No Reported Reaction, Motion Sickness Date of Last Stent Placement:: 08-13-16 Type of Cardiac Device: AICD Device Placement Date:: 2016 [place]. Past Psychological History: Anxiety, Bipolar, Depression Smoking Status: Former smoker Past Alcohol Use History: Occasional Past Drug Use History: Marijuana - Past Family History Mother Family Medical History: Coronary Artery Disease (CAD), Fibromyalgia, Hyperlipidemia Additional Family Medical History / Comment(s): Emotional problems, bipolar. Father Family Medical History: CVA/TIA, Fibromyalgia, Hyperlipidemia, Hypertension, Musculoskeletal Disorder Additional Family Medical History / Comment(s): MS. Sister(s) History Unknown: Yes Family Medical History: Hyperlipidemia Medications and Allergies Home Medications Medication Instructions Recorded Confirmed Type RX: Omeprazole [PriLOSEC] 40 mg PO DAILY 11/29/16 11/22/24 History RX: Atorvastatin [Lipitor] 80 mg PO DAILY 11/30/16 11/22/24 History RX: Divalproex ER [Depakote ER] 1,000 mg PO DAILY 02/06/17 11/22/24 History RX: Alendronate Sodium 70 mg PO COHEN 06/29/17 11/22/24 History RX: Spironolactone [Aldactone] 25 mg PO DAILY 11/19/19 11/22/24 History RX: Escitalopram [Lexapro] 20 mg PO DAILY 04/27/20 11/22/24 History RX: ALPRAZolam [Xanax] 0.25 mg PO BID PRN 02/12/23 11/22/24 History RX: Aspirin EC [Ecotrin Low Dose] 81 mg PO DAILY 02/12/23 11/22/24 History RX: Gabapentin [Neurontin] 900 mg PO TID 02/12/23 11/22/24 History RX: Sacubitril/Valsartan [Entresto 1 tab PO BID 02/12/23 11/22/24 History 24 mg-26 mg Tablet] RX: Albuterol Sulfate [Ventolin 2 puff INHALATION RT-Q6H PRN 01/25/24 11/22/24 History HFA] RX: Patient Own Pump 0 bag 01/25/24 History RX: Apixaban [Eliquis] 2.5 mg PO BID 07/03/24 11/22/24 History RX: Bumetanide [BUMEX] 1 mg PO BID 07/03/24 11/22/24 History Albuterol Nebulized [Ventolin 2.5 mg INHALATION RT-Q6H PRN 11/22/24 11/22/24 History Nebulized] Bisoprolol [Zebeta] 2.5 mg PO BID 11/22/24 11/22/24 History Clopidogrel [Plavix] 75 mg PO DAILY 11/22/24 11/22/24 History Docusate [Colace] 100 mg PO DAILY PRN 11/22/24 11/22/24 History Empagliflozin [Jardiance] 10 mg PO DAILY 11/22/24 11/22/24 History Evolocumab [Repatha Sureclick] 140 mg SQ Q14D 11/22/24 11/22/24 History Isosorbide Mononitrate ER [Imdur] 30 mg PO DAILY 11/22/24 11/22/24 History RX: Baclofen 10 mg PO BID 11/22/24 11/22/24 History RX: Nitroglycerin Sl Tabs 0.4 mg SL Q5M PRN 11/22/24 11/22/24 History [Nitrostat] RX: predniSONE 10 mg PO DIRECTED #30 tab 11/22/24 Rx metOLazone [Zaroxolyn] 2.5 mg PO DIRECTED 11/22/24 11/22/24 History oxyCODONE-APAP 7.5-325MG [Percocet 1 tab PO BID PRN 11/22/24 11/22/24 History 7.5-325 mg] Allergies Allergy/AdvReac Type Severity Reaction Status Date / Time moxifloxacin HCl Allergy Rash/Hives Verified 11/21/24 21:01 [From Avelox] Physical Exam Osteopathic Statement: *. No significant issues noted on an osteopathic structural exam other than those noted in the History and Physical/Consult. Vitals: Vital Signs Temp Pulse Resp BP Pulse Ox 11/22/24 08:07 87 21 131/75 94 L 11/22/24 08:05 101 H 22 11/22/24 07:59 92 18 11/22/24 06:41 98 22 145/86 94 L 11/22/24 05:20 98.9 F 105 H 22 145/108 93 L 11/22/24 03:00 93 22 150/91 93 L 11/22/24 01:00 99.2 F 92 22 136/80 95 11/21/24 22:08 99.0 F 11/21/24 22:02 92 18 143/88 92 L 11/21/24 20:41 92 18 166/83 92 L 11/21/24 19:37 98.1 F 11/21/24 16:54 99.0 F 76 20 126/76 99 11/21/24 14:50 98.0 F 81 18 136/84 97 PHYSICAL EXAM: VITAL SIGNS: [As above] GENERAL: Morbidly obese, alert and oriented x 3, no acute distress HEENT: Atraumatic, normocephalic .conjunctivae normal. eyes normal. Sclera anicteric. NECK: Supple, no JVD. CARDIOVASCULAR: S1, S2 regular. Systolic murmur RESPIRATION: Unlabored, equal air entry, bilateral lungs diminished. ABDOMEN: Soft, obese, nontender.no guarding. no masses palpable. Positive bowel sounds LEGS: No edema, no clubbing or cyanosis NERVOUS SYSTEM: Cranial N 2-12 grossly normal.No focal deficits. Skin: Warm and dry, no rash. Results CBC & Chem 7: 11/23/24 05:59 11/23/24 05:59 Labs: Abnormal Lab Results - Last 24 Hours (Table) 11/21/24 11/21/24 11/21/24 Range/Units 15:47 15:47 15:47 MPV 9.1 L (9.5-12.2) fL Lymphocytes # 0.88 L (0.90-5.00) 10*3/uL Eosinophils # 0.00 L (0.04-0.35) 10*3/uL APTT (22.0-30.0) sec Glucose 126 H (74-99) mg/dL Troponin I (0.000-0.034) ng/mL Urine Protein Trace H (Negative) Urine Glucose (UA) 4+ H (Negative) Urine Ketones 2+ H (Negative) Urine Opiates Screen (NotDetected) U Benzodiazepines Scrn (NotDetected) U Marijuana (THC) Screen (NotDetected) 11/21/24 11/21/24 11/21/24 Range/Units 16:54 20:51 23:13 MPV (9.5-12.2) fL Lymphocytes # (0.90-5.00) 10*3/uL Eosinophils # (0.04-0.35) 10*3/uL APTT (22.0-30.0) sec Glucose (74-99) mg/dL Troponin I 0.037 H* 0.060 H* (0.000-0.034) ng/mL Urine Protein (Negative) Urine Glucose (UA) (Negative) Urine Ketones (Negative) Urine Opiates Screen Detected H (NotDetected) U Benzodiazepines Scrn Detected H (NotDetected) U Marijuana (THC) Screen Detected H (NotDetected) 11/22/24 11/22/24 Range/Units 02:18 06:44 MPV (9.5-12.2) fL Lymphocytes # (0.90-5.00) 10*3/uL Eosinophils # (0.04-0.35) 10*3/uL APTT 41.4 H (22.0-30.0) sec Glucose (74-99) mg/dL Troponin I 0.091 H* (0.000-0.034) ng/mL Urine Protein (Negative) Urine Glucose (UA) (Negative) Urine Ketones (Negative) Urine Opiates Screen (NotDetected) U Benzodiazepines Scrn (NotDetected) U Marijuana (THC) Screen (NotDetected) Assessment and Plan Assessment: Shortness of breath, multifactorial, related to acute on chronic CHF with systolic dysfunction, EF 15-20% and acute COPD exacerbation,in a patient whose toxicology detected opiates, benzodiazepines and THC. Chest pain, troponins less than 0.012, 0.037, 0.060, 0.091, type II [place] secondary to oxygen supply/demand mismatch. Recent cardiac catheterization 07/16 reported in-stent occlusion of the LAD as well as intermediate to severe disease involving the mid RCA; evaluated by CTS- not a suitable candidate, underwent balloon angioplasty for RCA lesion with maximizing medical therapy in regards to LAD in-stent stenosis Chronic hypoxic and hypercapnic respiratory failure, wears 2 L nasal cannula O2 at home Chronic obstructive pulmonary disease History of apical thrombus maintained on anticoagulation Ischemic cardiomyopathy History of AICD implantation Coronary artery disease, with history of prior triple vessel stenting Hypertension Hyperlipidemia Anxiety, Depression, Bipolar Chronic pain, with implanted pain pump Former nicotine dependent Morbid obesity, BMI 38 Plan: Continue on current medication regimen ,monitoring and symptomatic treatment. ProBnp pending. Echo ordered .anticoagulation currently with Heparin gtt, diuretics.cardiology consult in place. home meds not yet comfirmed. Aggressive pulmonary toileting with nebulized bronchodilators, Symbicort and IV steroids. Close monitoring of Accu-Cheks with NovoLog sliding scale ordered. PPI ordered for GI prophylaxis. Strict I&O, close monitoring of renal function with repeat labs ordered for a.m. The impression and plan of care has been dictated as directed. : I performed a history and examination of this patient, discussed the same with the dictator. I agree with the dictator's note ,documented as a scribe. Any additional findings or plans will be noted.
[2024-11-22] MEDS: methylPREDNISolone SOD SUCCI 125 MG/2 ML VIAL IV STA (11:38)
[2024-11-22 12:04] LABS: Glucose,Whole Blood 118 mg/dL (70-110)
--- NOTE | 2024-11-22 12:31 | P.CNPUL ---
History of Present Illness Consult date: 11/22/24 Requesting physician: Anuradha Lyons Reason for consult: dyspnea, chest pain, COPD Chief complaint: Shortness of breath, chest pain History of present illness: This is a 49-year-old female patient with a known history of chronic tobacco dependence, chronic obstructive pulmonary disease, coronary artery disease with previous stent placements, ischemic cardiomyopathy, AICD placement, congestive heart failure, hypertension, hyperlipidemia, fibromyalgia, bipolar disorder, anxiety/depression, marijuana use. She presented here to the emergency room yesterday with chest pain, abdominal pain and shortness of breath. Multiple episodes of vomiting. Pain in her lower abdomen. Chest x-ray reveals pulmonary vascular congestion and possible bronchitis. CT scan of the abdomen revealed small bowel enteritis. Lives 324. Sodium 140. Potassium 3.9. Bicarb 28. BUN 12. Creatinine 0.82. Glucose 84. Troponin 0.06, 0.091. Urine drug screen positive for opiates, benzodiazepines and marijuana. Viral screen negative for influenza A/B, RSV or COVID. She is seen today in consultation in the emergency department. She is currently sitting up on a stretcher. Awake and alert in no acute distress. Is on 2 L/min per nasal cannula. She is afebrile. Hemodynamically stable. Review of Systems REVIEW OF SYSTEMS: CONSTITUTIONAL: Denies any recent significant weight loss or weight gain. EYES: Denies change in vision. EARS, NOSE, MOUTH, THROAT: Denies headaches, denies sore throat. CARDIOVASCULAR: Positive for chest pain, palpitations or syncopal episodes. RESPIRATORY: Positive for shortness of breath, cough, congestion or hemoptysis. GASTROINTESTINAL: Positive for nausea, vomiting and abdominal pain GENITOURINARY: Denies hematuria, denies infections. MUSKULOSKELETAL: Denies pain, denies swelling. INTEGUMENTARY: Denies rash, denies eczema. NEUROLOGICAL: Denies recent memory loss, no recent seizure activity. PSYCHIATRIC: Denies anxiety, denies depression. HEMATOLOGIC/LYMPHATIC: Denies anemia, denies enlarged lymph nodes. Past Medical History Past Medical History: Asthma, Coronary Artery Disease (CAD), Chest Pain / Angina, Heart Failure, COPD, Fibromyalgia, GERD/Reflux, Hyperlipidemia, Hypertension, Myocardial Infarction (MA), Musculoskeletal Disorder, Osteoarthritis (OA), Pneumonia Additional Past Medical History / Comment(s): Has Pain Pump and AICD. Ishemic Cardiomyopathy. Hx MA X3 - 2004, 2012, 2017. Hx bronchitis. Chronic back pain, lumbar Degenerative Disc Disease, occasional neck pain, osteoporosis, migraines. Hx UTIs, kidney stones. Vertigo. Last Myocardial Infarction Date:: 2016 History of Any Multi-Drug Resistant Organisms: None Reported Past Surgical History: AICD, Heart Catheterization, Heart Catheterization With Stent, Orthopedic Surgery, Tubal Ligation Additional Past Surgical History / Comment(s): Multiple stents (pt unable to state how many), left hand surgery, pain clinic procedures, [employer] Pain Pump surgically implanted. Past Anesthesia/Blood Transfusion Reactions: No Reported Reaction, Motion Sickness Date of Last Stent Placement:: 08-13-16 Type of Cardiac Device: AICD Device Placement Date:: 2016 [employer]. Past Psychological History: Anxiety, Bipolar, Depression Smoking Status: Former smoker Past Alcohol Use History: Occasional Past Drug Use History: Marijuana - Past Family History Mother Family Medical History: Coronary Artery Disease (CAD), Fibromyalgia, Hyperlipidemia Additional Family Medical History / Comment(s): Emotional problems, bipolar. Father Family Medical History: CVA/TIA, Fibromyalgia, Hyperlipidemia, Hypertension, Musculoskeletal Disorder Additional Family Medical History / Comment(s): MS. Sister(s) History Unknown: Yes Family Medical History: Hyperlipidemia Medications and Allergies Home Medications Medication Instructions Recorded Confirmed Type Omeprazole [PriLOSEC] 40 mg PO DAILY 11/29/16 11/22/24 History Atorvastatin [Lipitor] 80 mg PO DAILY 11/30/16 11/22/24 History Divalproex ER [Depakote ER] 1,000 mg PO DAILY 02/06/17 11/22/24 History Alendronate Sodium 70 mg PO CHOEN 06/29/17 11/22/24 History Spironolactone [Aldactone] 25 mg PO DAILY 11/19/19 11/22/24 History Escitalopram [Lexapro] 20 mg PO DAILY 04/27/20 11/22/24 History ALPRAZolam [Xanax] 0.25 mg PO BID PRN 02/12/23 11/22/24 History Aspirin EC [Ecotrin Low Dose] 81 mg PO DAILY 02/12/23 11/22/24 History Gabapentin [Neurontin] 900 mg PO TID 02/12/23 11/22/24 History Sacubitril/Valsartan [Entresto 24 1 tab PO BID 02/12/23 11/22/24 History mg-26 mg Tablet] Albuterol Sulfate [Ventolin HFA] 2 puff INHALATION RT-Q6H PRN 01/25/24 11/22/24 History Patient Own Pump 0 bag 01/25/24 History Apixaban [Eliquis] 2.5 mg PO BID 07/03/24 11/22/24 History Bumetanide [BUMEX] 1 mg PO BID 07/03/24 11/22/24 History Albuterol Nebulized [Ventolin 2.5 mg INHALATION RT-Q6H PRN 11/22/24 11/22/24 History Nebulized] Baclofen 10 mg PO BID 11/22/24 11/22/24 History Bisoprolol [Zebeta] 2.5 mg PO BID 11/22/24 11/22/24 History Clopidogrel [Plavix] 75 mg PO DAILY 11/22/24 11/22/24 History Docusate [Colace] 100 mg PO DAILY PRN 11/22/24 11/22/24 History Empagliflozin [Jardiance] 10 mg PO DAILY 11/22/24 11/22/24 History Evolocumab [Repatha Sureclick] 140 mg SQ Q14D 11/22/24 11/22/24 History Isosorbide Mononitrate ER [Imdur] 30 mg PO DAILY 11/22/24 11/22/24 History Nitroglycerin Sl Tabs [Nitrostat] 0.4 mg SL Q5M PRN 11/22/24 11/22/24 History metOLazone [Zaroxolyn] 2.5 mg PO DIRECTED 11/22/24 11/22/24 History oxyCODONE-APAP 7.5-325MG [Percocet 1 tab PO BID PRN 11/22/24 11/22/24 History 7.5-325 mg] predniSONE 10 mg PO DIRECTED #30 tab 11/22/24 Rx Allergies Allergy/AdvReac Type Severity Reaction Status Date / Time moxifloxacin HCl Allergy Rash/Hives Verified 11/21/24 21:01 [From Avelox] Physical Exam Vitals: Vital Signs Temp Pulse Resp BP Pulse Ox 11/22/24 11:39 98.4 F 87 21 144/84 94 L 11/22/24 09:52 89 24 94 L 11/22/24 08:47 20 11/22/24 08:07 87 21 131/75 94 L 11/22/24 08:05 101 H 22 11/22/24 07:59 92 18 11/22/24 06:41 98 22 145/86 94 L 11/22/24 05:20 98.9 F 105 H 22 145/108 93 L 11/22/24 03:00 93 22 150/91 93 L 11/22/24 01:00 99.2 F 92 22 136/80 95 11/21/24 22:08 99.0 F 11/21/24 22:02 92 18 143/88 92 L 11/21/24 20:41 92 18 166/83 92 L 11/21/24 19:37 98.1 F 11/21/24 16:54 99.0 F 76 20 126/76 99 11/21/24 14:50 98.0 F 81 18 136/84 97 GENERAL EXAM: Alert, 49-year-old female, on 2 L nasal cannula, fairly c omfortable in no apparent distress. HEAD: Normocephalic. EYES: Normal reaction of pupils, equal size. NOSE: Clear with pink turbinates. THROAT: No erythema or exudates. NECK: No masses, no JVD. CHEST: No chest wall deformity. LUNGS: Equal air entry with crackles in the bilateral bases. CVS: S1 and S2 normal with an audible murmur, regular rhythm. ABDOMEN: No hepatosplenomegaly, normal bowel sounds, no guarding or rigidity. SPINE: No scoliosis or deformity SKIN: No rashes CENTRAL NERVOUS SYSTEM: No focal deficits, tone is normal in all 4 extremities. EXTREMITIES: There is 1+ peripheral edema. No clubbing, no cyanosis. Peripheral pulses are intact. Results - Laboratory Findings CBC and BMP: 11/21/24 15:47 11/21/24 15:47 PT/INR, D-dimer PT 11.0 sec (10.0-12.5) 11/21/24 15:47 INR 1.0 (<1.2) 11/21/24 15:47 Abnormal lab findings: Abnormal Labs 11/21/24 11/21/24 11/21/24 15:47 15:47 15:47 MPV 9.1 L Lymphocytes # 0.88 L Eosinophils # 0.00 L APTT Glucose 126 H POC Glucose (mg/dL) Troponin I Urine Protein Trace H Urine Glucose (UA) 4+ H Urine Ketones 2+ H Urine Opiates Screen U Benzodiazepines Scrn U Marijuana (THC) Screen 11/21/24 11/21/24 11/21/24 16:54 20:51 23:13 MPV Lymphocytes # Eosinophils # APTT Glucose POC Glucose (mg/dL) Troponin I 0.037 H* 0.060 H* Urine Protein Urine Glucose (UA) Urine Ketones Urine Opiates Screen Detected H U Benzodiazepines Scrn Detected H U Marijuana (THC) Screen Detected H 11/22/24 11/22/24 11/22/24 02:18 06:44 08:39 MPV Lymphocytes # Eosinophils # APTT 41.4 H Glucose POC Glucose (mg/dL) 127 H Troponin I 0.091 H* Urine Protein Urine Glucose (UA) Urine Ketones Urine Opiates Screen U Benzodiazepines Scrn U Marijuana (THC) Screen 11/22/24 12:01 MPV Lymphocytes # Eosinophils # APTT Glucose POC Glucose (mg/dL) 118 H Troponin I Urine Protein Urine Glucose (UA) Urine Ketones Urine Opiates Screen U Benzodiazepines Scrn U Marijuana (THC) Screen - Diagnostic Findings Chest x-ray: image reviewed Assessment and Plan Assessment: Acute hypoxic respiratory failure secondary to mild pulmonary vascular congestion and possible bronchitis Troponin leak Coronary artery disease with previous stent placement Ischemic cardiomyopathy, status post AICD placement, maintained on Eliquis Hypertension Hyperlipidemia History of systolic congestive heart failure, previous ejection fraction 15 to 20% Chronic tobacco dependence Chronic obstructive pulmonary disease Bipolar disorder Anxiety/depression Chronic back pain with previous pain pump Fibromyalgia Plan: The patient was seen and evaluated Chest x-ray, labs and medications reviewed CT scan of the abdomen reviewed Check a procalcitonin Continue DuoNeb inhalations Continue Symbicort Continue Solu-Medrol Continue IV diuretics Continue heparin drip Cardiology is following Echocardiogram pending We will continue to follow and make further recommendations based on her clinical status I have personally seen and examined the patient, performed the documentation and the assessment and plan as written. Number of minutes spent on the visit: 20 Dictation was produced using [employer] dictation software. Please excuse any grammatical, word or spelling errors. Time with Patient: Greater than 30
[2024-11-22] MEDS: DAPAGLIFLOZIN PROPANEDIOL 5 MG TABLET PO SCH (13:24)
[2024-11-22] MEDS: ISOSORBIDE MONONITRATE ER 30 MG TAB.ER.24H PO SCH (13:24)
[2024-11-22] MEDS: ASPIRIN 81 MG PO SCH (13:24)
[2024-11-22] MEDS: CLOPIDOGREL 75 MG TAB PO SCH (13:25)
[2024-11-22] MEDS: SPIRONOLACTONE 25 MG TAB PO SCH (13:25)
[2024-11-22] MEDS: SACUBITRIL/VALSARTAN 24 MG-26 MG TABLET PO SCH (13:25)
[2024-11-22] MEDS: APIXABAN 2.5 MG TABLET PO SCH (13:25)
[2024-11-22] MEDS: Evolocumab [Repatha Sureclick] 140 MG/ML SQ SCH (14:47)
[2024-11-22] MEDS: BISOPROLOL 5 MG TAB PO SCH (15:13)
[2024-11-22] MEDS: ESCITALOPRAM 20 MG TAB PO SCH (15:13)
[2024-11-22] MEDS: GABAPENTIN 300 MG CAP PO SCH (15:13)
[2024-11-22] MEDS: DIVALPROEX ER 500 MG TAB.ER.24H PO SCH (15:14)
--- NOTE | 2024-11-22 16:05 | CA ---
Transthoracic Echo Report Name: Sahara Denise Age: 49 Gender: F : 1975 Exam Date: 11/22/2024 07:58 Exam Location: [place] [facility] Ht (in): 62 Wt (lb): 205 Ordering Physician: Blake Herrera MD ([id number]) Attending/Referring Phys: Sharon HERNÁNDEZ Generator Operator Lea White RDCS Procedure CPT: Indications: cardiac Cardiac Hx: Limited, last prior 07/05/24. AICD Technical Quality: Technically difficult study Contrast 1: Definity Total Dose (mL): 3 Contrast 2: Total Dose (mL): MEASUREMENTS (Male / Female) Normal Values 2D ECHO LV Diastolic Diameter PLAX 5.6 cm 4.2 - 5.9 / 3.9 - 5.3 cm LV Systolic Diameter PLAX 5.0 cm IVS Diastolic Thickness 0.9 cm 0.6 - 1.0 / 0.6 - 0.9 cm LVPW Diastolic Thickness 1.3 cm 0.6 - 1.0 / 0.6 - 0.9 cm LV Relative Wall Thickness 0.4 LV Diastolic Volume MOD BP 251.6 cm??? 67 - 155 / 56 - 104 cm??? LV Systolic Volume MOD BP 171.8 cm??? 22 - 58 / 19 - 49 cm??? LV Ejection Fraction MOD BP 31.7 % >= 55 % LV Cardiac Index MOD BP 3328.7 cm???/min???m??? LV Diastolic Volume MOD 4C 230.6 cm??? LV Systolic Volume MOD 4C 170.6 cm??? LV Ejection Fraction MOD 4C 26.0 % LV Cardiac Index MOD 4C 2500.9 cm???/min???m??? LV Diastolic Length 4C 9.3 cm LV Systolic Length 4C 8.1 cm LV Diastolic Volume MOD 2C 258.8 cm??? LV Systolic Volume MOD 2C 166.0 cm??? LV Ejection Fraction MOD 2C 35.9 % LV Cardiac Index MOD 2C 3867.5 cm???/min???m??? LV Diastolic Length 2C 9.9 cm LV Systolic Length 2C 8.6 cm DOPPLER AV Peak Velocity 158.8 cm/s AV Peak Gradient 10.1 mmHg AV Mean Velocity 106.2 cm/s AV Mean Gradient 5.3 mmHg AV Velocity Time Integral 26.7 cm LVOT Peak Velocity 139.5 cm/s LVOT Peak Gradient 7.8 mmHg LVOT Velocity Time Integral 24.4 cm FINDINGS Left Ventricle Left ventricular ejection fraction is estimated at 20 %. Moderately increased posterior wall thickness. Mildly increased left ventricular diastolic diameter. Severely increased left ventricular diastolic volume. Severely increased left ventricular systolic volume. Moderately decreased left ventricular ejection fraction. Severely reduced global left ventricular systolic function. Right Ventricle Right ventricle not well visualized. Normal right ventricular global systolic function. Unable to estimate the right ventricular systolic pressure. Right Atrium Right atrium not well visualized. Left Atrium Left atrium not well visualized. Mitral Valve Structurally normal mitral valve. No evidence for mitral valve prolapse. No mitral stenosis. Trace mitral regurgitation. Aortic Valve Aortic valve not well visualized. No aortic valve stenosis or regurgitation. Tricuspid Valve Structurally normal tricuspid valve. No tricuspid stenosis, regurgitation or prolapse. Pulmonic Valve Pulmonic valve not well visualized. Pericardium No pericardial effusion. Aorta Aortic root and proximal ascending aorta not well visualized. CONCLUSIONS Left ventricular ejection fraction 20% Moderately increased left ventricular thickness Trace mitral regurgitation Technically difficult study Previewed by: Dr. Donal Cesar DO (Electronically Signed) Final Date: 22 Nov 2024 16:04
[2024-11-22] MEDS: methylPREDNISolone SOD SUCCI 125 MG/2 ML VIAL IV SCH (16:25)
[2024-11-22] MEDS: IPRATROPIUM-ALBUTEROL 3 ML NEB INHALATION PRN (16:30)
[2024-11-22 17:31] LABS: Glucose,Whole Blood 128 mg/dL (70-110)
[2024-11-22 19:49] LABS: Glucose,Whole Blood 125 mg/dL (70-110)
[2024-11-22] MEDS: FUROSEMIDE 10 MG/ML 4 ML VIAL IV SCH (20:30)
[2024-11-23 05:54] LABS: Glucose,Whole Blood 140 mg/dL (70-110)
[2024-11-23] MEDS: ATORVASTATIN 80 MG TAB PO SCH (08:15)
[2024-11-23] MEDS: methylPREDNISolone SOD SUCCI 40 MG/ML 1 ML VIAL IV SCH (08:15)
--- NOTE | 2024-11-23 09:53 | P.PN ---
Subjective Progress Note Date: 11/23/24 HISTORY OF PRESENT ILLNESS: This is a 49-year-old female with a past medical history significant for co ronary artery disease with previous stenting, ischemic cardiomyopathy, AICD implantation, hypertension, hyperlipidemia, COPD, nicotine dependence, DVT, and obesity. Patient follows in the office with Dr. Montoya. We have been asked to see the patient in consultation for chest pain. Patient examined at the bedside. Patient presented to the hospital with a chief complaint of shortness of breath. She states her shortness of breath started yesterday. Patient also has a history of COPD but apparently stopped using her inhalers on an outpatient basis. Patient denies having any chest pain or pressure. DIAGNOSTICS: - EKG reveals sinus mechanism with no signs of acute ischemia. - Chest xray borderline heart size and increased interstitial density. Consider pulmonary vascular congestion versus bronchitis or asthma. - Laboratory data: WBC 7.61. Hemoglobin 14.4. Platelet count 324. Sodium 140. Potassium 3.9. BUN 12. Creatinine 0.82. Troponin 0.012. 0.037. 0.060. 0.091. - Current home cardiac medication list has not been updated at the time of this dictation - Most recent echocardiogram obtained in June 2024 revealing ejection fraction 15 to 20%, mild pulmonary hypertension, trace MR, moderate AI - Cardiac catheterization history: June 2024 with stenting of the RCA 11/23 Patient seen and examined on the observation unit. Patient has been maintained on IV Lasix 40 mg every 12 hours. She states that her breathing is better and her lower extremity edema is improved. She states she is not eating very much at this point. She states she did not sleep well last night. Blood pressure 101/65, heart rate 61, pulse ox 97% on 3 L nasal cannula. Echocardiogram reveals EF of 20%, moderately increased left ventricular thickness, trace mitral regurgitation. Technically difficult study. PHYSICAL EXAM: VITAL SIGNS: Reviewed. GENERAL: Well-developed in no acute distress. HEENT: Head is normocephalic. Pupils are equal, round. Sclerae anicteric. Mucous membranes of the mouth are moist. Neck supple. No JVD or thyromegaly LUNGS: Respirations even and unlabored. Lungs no crackles. HEART: Regular rate and rhythm. S1 and S2 heard. No murmur ABDOMEN: Soft. Nondistended. Nontender. EXTREMITIES: No clubbing or cyanosis. Peripheral pulses intact. No lower extremity edema NEUROLOGIC: Awake and alert. Oriented x 3. ASSESSMENT: Shortness of breath Acute COPD exacerbation Acute on chronic heart failure with reduced EF, 15 to 20% Elevated troponins, type II [place] secondary to oxygen supply/demand mismatch Coronary artery disease with previous stenting Ischemic cardiomyopathy History of AICD implantation Hypertension Hyperlipidemia Nicotine dependence Obesity: BMI 37.5 PLAN: Continue home cardiac medications: Aspirin, Eliquis, Lipitor, bisoprolol, Plavix, Farxiga, Imdur, Entresto, Aldactone Continue IV Lasix 40 mg every 12 hours for another 24 hours Daily weights, accurate intake and output, monitoring of kidney function Pulmonary consultation appreciated Further recommendations pending patient course Nurse practitioner note has been reviewed by physician. Signing provider agrees with the documented findings, assessment, and plan of care documented by MACHINE PLATE STACKER as a scribe. Objective - Vital Signs Vital signs: Vital Signs Temp 97.8 F 11/23/24 06:50 Pulse 61 11/23/24 06:50 Resp 16 11/23/24 06:50 BP 101/65 11/23/24 06:50 Pulse Ox 97 11/23/24 06:50 FiO2 Intake & Output 11/22/24 11/23/24 11/23/24 18:59 06:59 18:59 Intake Total 843.025 1637 Output Total 2500 110 Balance 703.833 -1082 -110 Weight 92.986 kg 92.9 kg Intake: Intake, IV Titration 113.833 Amount Heparin Sod,Pork in 0.45% 113.833 NaCl 25,000 unit In 0.45 % NaCl 1 250ml.bag @ 10. 754 UNITS/KG/HR 10 mls/hr IV .Q24H [facility] Rx#: [id number] Oral 590 1418 Output: Urine 2500 110 Other: Voiding Method External Catheter - Labs CBC & Chem 7: 11/21/24 15:47 11/21/24 15:47 Labs: Abnormal Lab Results - Last 24 Hours (Table) 11/22/24 11/22/24 11/22/24 Range/Units 06:44 08:39 12:01 POC Glucose (mg/dL) 127 H 118 H (70-110) mg/dL NT-Pro-B Natriuret Pep 32741 H (0-125) pg/mL 11/22/24 11/22/24 11/23/24 Range/Units 17:30 19:42 05:50 POC Glucose (mg/dL) 128 H 125 H 140 H (70-110) mg/dL NT-Pro-B Natriuret Pep (0-125) pg/mL
[2024-11-23 10:16] LABS: Basophils # (A) 0 X 10*3/uL (0.00-0.10); Basophils % (A) 0 %; Eosinophils # (A) 0 X 10*3/uL (0.04-0.35); Eosinophils % (A) 0 %; HCT 37.3 % (37.2-46.3); HGB 12.2 g/dL (12.0-15.0); Lymphocytes # (A) 1.05 X 10*3/uL (0.90-5.00); MCH 28.6 pg (27.0-32.0); MCHC 32.7 g/dL (32.0-37.0); MCV 87.6 FL (80.0-97.0); Monocytes # (A) 0.31 X 10*3/uL (0.20-1.00); NRBC Per 100 WBC 0 X 10*3/uL (0.00-0.01); Neutrophils % (A) 86.6 %; Platelet Count 284 X 10*3/uL (140-440); RBC 4.26 X 10*6/uL (4.10-5.20); RDW 16.9 % (11.5-14.5)
[2024-11-23 11:06] LABS: BUN/Creat Ratio 23.29 Ratio (12.00-20.00); Blood Urea Nitrogen 16.3 mg/dL (9.0-27.0); Calcium 9.2 mg/dL (8.7-10.3); Carbon Dioxide 27.5 mmol/L (21.6-31.8); Chloride 97 mmol/L (96-109); Glucose 131 mg/dL (70-110); Potassium 3.9 mmol/L (3.5-5.5); Sodium 136 mmol/L (135-145)
[2024-11-23 12:11] LABS: Glucose,Whole Blood 125 mg/dL (70-110)
--- NOTE | 2024-11-23 12:16 | P.PN ---
Subjective Progress Note Date: 11/23/24 This is a 49-year-old female patient with a known history of chronic tobacco dependence, chronic obstructive pulmonary disease, coronary artery disease with previous stent placements, ischemic cardiomyopathy, AICD placement, congestive heart failure, hypertension, hyperlipidemia, fibromyalgia, bipolar disorder, anxiety/depression, marijuana use. She presented here to the emergency room yesterday with chest pain, abdominal pain and shortness of breath. Multiple episodes of vomiting. Pain in her lower abdomen. Chest x-ray reveals pulmonary vascular congestion and possible bronchitis. CT scan of the abdomen revealed small bowel enteritis. Lives 324. Sodium 140. Potassium 3.9. Bicarb 28. BUN 12. Creatinine 0.82. Glucose 84. Troponin 0.06, 0.091. Urine drug screen positive for opiates, benzodiazepines and marijuana. Viral screen negative for influenza A/B, RSV or COVID. She is seen today in consultation in the emergency department. She is currently sitting up on a stretcher. Awake and alert in no acute distress. Is on 2 L/min per nasal cannula. She is afebrile. Hemodynamically stable. The patient is seen today November 23, 2024 in follow-up on the regular medical floor. She is currently sitting up in bed. Awake and alert in no acute distress. Breathing a bit easier today compared to yesterday. Still with some dyspnea with minimal exertion. She is maintaining O2 saturations in the upper 90s on 2 L/min per nasal cannula. She is afebrile. Hemodynamically stable. White count 10.5. Hemoglobin 12.2. Platelets 284. Sodium 136. Potassium 3.9. Bicarb 28. BUN 16. Creatinine 0.7. Glucose 131. She remains on Symbicort, DuoNeb and elations, Solu-Medrol. She remains on IV diuretics. Anticoagulated with Eliquis. Currently on -380 mL balance. Echocardiogram revealed severely impaired left ventricular systolic function with an ejection fraction of 20%. Objective - Vital Signs Vital signs: Vital Signs Temp 97.8 F 11/23/24 06:50 Pulse 61 11/23/24 08:00 Resp 16 11/23/24 08:00 BP 101/65 11/23/24 06:50 Pulse Ox 97 11/23/24 09:03 FiO2 Intake & Output 11/22/24 11/23/24 11/23/24 18:59 06:59 18:59 Intake Total 399.302 1226 360 Output Total 2500 1030 Balance 703.833 -1082 -670 Weight 92.986 kg 92.9 kg Intake: Intake, IV Titration 113.833 Amount Heparin Sod,Pork in 0.45% 113.833 NaCl 25,000 unit In 0.45 % NaCl 1 250ml.bag @ 10. 754 UNITS/KG/HR 10 mls/hr IV .Q24H [facility] Rx#: [id number] Oral 590 1418 360 Output: Urine 2500 1030 Other: Voiding Method External Catheter External Catheter - Exam GENERAL EXAM: Alert, pleasant 49-year-old female, sitting up in bed, on 2 L nasal cannula, comfortable in no apparent distress. HEAD: Normocephalic. EYES: Normal reaction of pupils, equal size. NOSE: Clear with pink turbinates. THROAT: No erythema or exudates. NECK: No masses, no JVD. CHEST: No chest wall deformity. LUNGS: Equal air entry with bibasilar crackles. CVS: S1 and S2 normal with an audible murmur, regular rhythm. ABDOMEN: No hepatosplenomegaly, normal bowel sounds, no guarding or rigidity. SPINE: No scoliosis or deformity SKIN: No rashes CENTRAL NERVOUS SYSTEM: No focal deficits, tone is normal in all 4 extremities. EXTREMITIES: There is no peripheral edema. No clubbing, no cyanosis. Peripheral pulses are intact. - Labs CBC & Chem 7: 11/23/24 05:59 11/23/24 05:59 Labs: Abnormal Lab Results - Last 24 Hours (Table) 11/22/24 11/22/24 11/22/24 Range/Units 06:44 17:30 19:42 WBC (4.50-10.00) X 10*3/uL RDW (11.5-14.5) % Neutrophils # (1.80-7.70) X 10*3/uL Eosinophils # (0.04-0.35) X 10*3/uL BUN/Creatinine Ratio (12.00-20.00) Ratio Glucose (70-110) mg/dL POC Glucose (mg/dL) 128 H 125 H (70-110) mg/dL NT-Pro-B Natriuret Pep 59912 H (0-125) pg/mL 0511/23/24 11/23/24 Range/Units 05:50 05:59 05:59 WBC 10.50 H (4.50-10.00) X 10*3/uL RDW 16.9 H (11.5-14.5) % Neutrophils # 9.10 H (1.80-7.70) X 10*3/uL Eosinophils # 0 L (0.04-0.35) X 10*3/uL BUN/Creatinine Ratio 23.29 H (12.00-20.00) Ratio Glucose 131 H (70-110) mg/dL POC Glucose (mg/dL) 140 H (70-110) mg/dL NT-Pro-B Natriuret Pep (0-125) pg/mL Assessment and Plan Assessment: Acute hypoxic respiratory failure secondary to an acute exacerbation of chronic systolic congestive heart failure and possible bronchitis. BNP 16,000. Procalcitonin less than 0.20. Troponin leak Coronary artery disease with previous stent placements Ischemic cardiomyopathy, status post AICD placement, maintained on Eliquis. Left ventricular systolic function with an ejection fraction of 20% Hypertension Hyperlipidemia Chronic tobacco dependence Chronic obstructive pulmonary disease Bipolar disorder Anxiety/depression Chronic back pain with previous pain pump Fibromyalgia Plan: The patient was seen and evaluated Labs and medications reviewed Echocardiogram reviewed Continue DuoNeb inhalations Continue Symbicort Continue Solu-Medrol Continue IV diuretics Remains on Eliquis We will continue to follow I have personally seen and examined the patient, performed the documentation and the assessment and plan as written. Number of minutes spent on the visit: 10 Dictation was produced using [employer] dictation software. Please excuse any grammatical, word or spelling errors.
--- NOTE | 2024-11-23 16:49 | P.PN ---
Subjective Progress Note Date: 11/23/24 Principal diagnosis: Shortness of breath chest pain This is a 49-year-old female well-known to the practice who presents to the hospital with chest pain shortness of breath known history of coronary artery disease with stent placement, known history of pulmonary disease with diminished lung capacity, known cardiomyopathy, ischemic cardiomyopathy with a EF of less than 20 known history of IDC placement, known history of myocardial infarction known history of bipolar disorder known history of both prescription and illicit substance abuse who presents who presents to the hospital with chest pain short breath nausea vomiting for 2 to 3 days known history of opiate and alcohol abuse patient still cigarettes smoker Objective - Vital Signs Vital signs: Vital Signs Temp 98.3 F 11/23/24 15:00 Pulse 64 11/23/24 16:30 Resp 16 11/23/24 15:00 BP 102/62 11/23/24 16:15 Pulse Ox 96 11/23/24 16:15 FiO2 Intake & Output 11/22/24 11/23/24 11/23/24 18:59 06:59 18:59 Intake Total 742.243 3792 600 Output Total 2500 1130 Balance 703.833 -1082 -530 Weight 92.986 kg 92.9 kg Intake: Intake, IV Titration 113.833 Amount Heparin Sod,Pork in 0.45% 113.833 NaCl 25,000 unit In 0.45 % NaCl 1 250ml.bag @ 10. 754 UNITS/KG/HR 10 mls/hr IV .Q24H [facility] Rx#: [id number] Oral 590 1418 600 Output: Urine 2500 1130 Other: Voiding Method External Catheter External Catheter - Exam General: [Patient awake, alert and oriented times 3. Patient in no acute distress. Morbid obesity HEENT: [PERRL. EOMI. No pharyngeal erythema or exudate.] Neck: [No adenopathy.] Cardiac: [Heart regular in rate and rhythm. No S3. No S4. No clicks, rubs. No murmur.] Lungs: Coarse breath sounds with bilateral wheezes Abdomen: [No mass. No organomegaly. Bowel sounds presnt and normoactive in all 4 quadrants.] Extremes: [No edema no cyanosis no claudication normal pulses] : Normal female genitalia Musculoskeletal: [No joint erythema, edema or tenderness.] Skin: [No rash.] Neurologic: [No lateralizing deficits. CN II - XII grossly intact.] Lymphatic: [No adenopathy.] - Labs CBC & Chem 7: 11/23/24 05:59 11/23/24 05:59 Labs: Abnormal Lab Results - Last 24 Hours (Table) 11/22/24 11/22/24 11/23/24 Range/Units 17:30 19:42 05:50 WBC (4.50-10.00) X 10*3/uL RDW (11.5-14.5) % Neutrophils # (1.80-7.70) X 10*3/uL Eosinophils # (0.04-0.35) X 10*3/uL BUN/Creatinine Ratio (12.00-20.00) Ratio Glucose (70-110) mg/dL POC Glucose (mg/dL) 128 H 125 H 140 H (70-110) mg/dL 11/23/24 11/23/24 11/23/24 Range/Units 05:59 05:59 12:08 WBC 10.50 H (4.50-10.00) X 10*3/uL RDW 16.9 H (11.5-14.5) % Neutrophils # 9.10 H (1.80-7.70) X 10*3/uL Eosinophils # 0 L (0.04-0.35) X 10*3/uL BUN/Creatinine Ratio 23.29 H (12.00-20.00) Ratio Glucose 131 H (70-110) mg/dL POC Glucose (mg/dL) 125 H (70-110) mg/dL Assessment and Plan Assessment: Shortness of breath, multifactorial, related to acute on chronic CHF with systolic dysfunction, EF 15-20% and acute COPD exacerbation,in a patient whose toxicology detected opiates, benzodiazepines and THC. Chest pain, troponins less than 0.012, 0.037, 0.060, 0.091, type II CA secondary to oxygen supply/demand mismatch. Recent cardiac catheterization 07/16 reported in-stent occlusion of the LAD as well as intermediate to severe disease involving the mid RCA; evaluated by CTS- not a suitable candidate, underwent balloon angioplasty for RCA lesion with maximizing medical therapy in regards to LAD in-stent stenosis Chronic hypoxic and hypercapnic respiratory failure, wears 2 L nasal cannula O2 at home Chronic obstructive pulmonary disease History of apical thrombus maintained on anticoagulation Ischemic cardiomyopathy History of AICD implantation Coronary artery disease, with history of prior triple vessel stenting Hypertension Hyperlipidemia Anxiety, Depression, Bipolar Chronic pain, with implanted pain pump Former nicotine dependent Morbid obesity, BMI 38 Plan: Continue on current medication regimen ,monitoring and symptomatic treatment. ProBnp pending. Echo ordered .anticoagulation currently with Heparin gtt, diuretics.cardiology consult in place. home meds not yet comfirmed. Aggressive pulmonary toileting with nebulized bronchodilators, Symbicort and IV steroids. Close monitoring of Accu-Cheks with NovoLog sliding scale ordered. PPI ordered for GI prophylaxis. Strict I&O, close monitoring of renal function with repeat labs ordered for a.m. The impression and plan of care has been dictated as directed. : I performed a history and examination of this patient, discussed the same with the dictator. I agree with the dictator's note ,documented as a scribe. Any additional findings or plans will be noted. (1) Abdominal pain Current Visit: Yes Status: Acute Code(s): R10.9 - UNSPECIFIED ABDOMINAL PAIN SNOMED Code(s): 61366037 (2) Chest pain Current Visit: Yes Status: Acute Code(s): R07.9 - CHEST PAIN, UNSPECIFIED SNOMED Code(s): 58801065 (3) HERLINDA (acute kidney injury) Current Visit: No Status: Acute Code(s): N17.9 - ACUTE KIDNEY FAILURE, UNSPECIFIED SNOMED Code(s): 09169747 (4) Acute on chronic systolic (congestive) heart failure Current Visit: No Status: Acute Code(s): I50.23 - ACUTE ON CHRONIC SYSTOLIC (CONGESTIVE) HEART FAILURE SNOMED Code(s): 751290872 (5) Apical mural thrombus Current Visit: No Status: Acute Code(s): I51.3 - INTRACARDIAC THROMBOSIS, NOT ELSEWHERE CLASSIFIED SNOMED Code(s): 09042473 (6) CAD (coronary artery disease) Current Visit: No Status: Acute Code(s): I25.10 - ATHSCL HEART DISEASE OF [place] CORONARY ARTERY W/O ANG PCTRS SNOMED Code(s): 05781351 (7) CHF (congestive heart failure) Current Visit: No Status: Acute Code(s): I50.9 - HEART FAILURE, UNSPECIFIED SNOMED Code(s): 90886399 (8) COPD (chronic obstructive pulmonary disease) Current Visit: No Status: Acute Code(s): J44.9 - CHRONIC OBSTRUCTIVE PULMONARY DISEASE, UNSPECIFIED SNOMED Code(s): 03769233 (9) Dehydration Current Visit: No Status: Acute Code(s): E86.0 - DEHYDRATION SNOMED Code(s): 89475305 (10) Depression with somatization Current Visit: No Status: Acute Code(s): F32.9 - MAJOR DEPRESSIVE DISORDER, SINGLE EPISODE, UNSPECIFIED SNOMED Code(s): 81448224 (11) Depression with suicidal ideation Current Visit: No Status: Acute Code(s): F32.9 - MAJOR DEPRESSIVE DISORDER, SINGLE EPISODE, UNSPECIFIED SNOMED Code(s): 34617430 (12) Depression, acute Current Visit: No Status: Acute Code(s): F32.9 - MAJOR DEPRESSIVE DISORDER, SINGLE EPISODE, UNSPECIFIED SNOMED Code(s): 684754935 (13) Dizziness Current Visit: No Status: Acute Code(s): R42 - DIZZINESS AND GIDDINESS SNOMED Code(s): 185182959 (14) History of hypertension Current Visit: No Status: Acute Code(s): Z86.79 - PERSONAL HISTORY OF OTHER DISEASES OF THE CIRCULATORY SYSTEM SNOMED Code(s): 209062213 Plan: Consultation with pulmonary medicine Consultation with cardiology Continue current care Time with Patient: Greater than 30
[2024-11-23 17:17] LABS: Glucose,Whole Blood 135 mg/dL (70-110)
[2024-11-23 19:45] LABS: Glucose,Whole Blood 194 mg/dL (70-110)
[2024-11-23] MEDS: ALPRAZolam 0.25 MG TAB PO PRN (22:03)
[2024-11-24 05:50] LABS: Glucose,Whole Blood 139 mg/dL (70-110)
[2024-11-24] MEDS: PANTOPRAZOLE 40 MG TABLET PO SCH (06:57)
[2024-11-24 07:15] VITALS: BP 96/61; PULSE 65; RESP 17; TEMP 97.8
--- NOTE | 2024-11-24 10:37 | P.PN ---
Subjective Progress Note Date: 11/24/24 HISTORY OF PRESENT ILLNESS: This is a 49-year-old female with a past medical history significant for co ronary artery disease with previous stenting, ischemic cardiomyopathy, AICD implantation, hypertension, hyperlipidemia, COPD, nicotine dependence, DVT, and obesity. Patient follows in the office with Dr. Montoya. We have been asked to see the patient in consultation for chest pain. Patient examined at the bedside. Patient presented to the hospital with a chief complaint of shortness of breath. She states her shortness of breath started yesterday. Patient also has a history of COPD but apparently stopped using her inhalers on an outpatient basis. Patient denies having any chest pain or pressure. DIAGNOSTICS: - EKG reveals sinus mechanism with no signs of acute ischemia. - Chest xray borderline heart size and increased interstitial density. Consider pulmonary vascular congestion versus bronchitis or asthma. - Laboratory data: WBC 7.61. Hemoglobin 14.4. Platelet count 324. Sodium 140. Potassium 3.9. BUN 12. Creatinine 0.82. Troponin 0.012. 0.037. 0.060. 0.091. - Current home cardiac medication list has not been updated at the time of this dictation - Most recent echocardiogram obtained in June 2024 revealing ejection fraction 15 to 20%, mild pulmonary hypertension, trace MR, moderate AI - Cardiac catheterization history: June 2024 with stenting of the RCA 11/23 Patient seen and examined on the observation unit. Patient has been maintained on IV Lasix 40 mg every 12 hours. She states that her breathing is better and her lower extremity edema is improved. She states she is not eating very much at this point. She states she did not sleep well last night. Blood pressure 101/65, heart rate 61, pulse ox 97% on 3 L nasal cannula. Echocardiogram reveals EF of 20%, moderately increased left ventricular thickness, trace mitral regurgitation. Technically difficult study. 11/24 Patient seen and examined. Patient has been maintained on IV Lasix 40 mg every 12 hours with plan to transition to oral today. Blood pressure 96/61, heart rate 65, pulse ox 96% on 3 L nasal cannula. Patient states that she is feeling well. She does have a follow-up appointment with [facility] in December which she is to keep. She is normally on Bumex 1 mg twice daily for home. PHYSICAL EXAM: VITAL SIGNS: Reviewed. GENERAL: Well-developed in no acute distress. HEENT: Head is normocephalic. Pupils are equal, round. Sclerae anicteric. Mucous membranes of the mouth are moist. Neck supple. No JVD or thyromegaly LUNGS: Respirations even and unlabored. Lungs no crackles. HEART: Regular rate and rhythm. S1 and S2 heard. No murmur ABDOMEN: Soft. Nondistended. Nontender. EXTREMITIES: No clubbing or cyanosis. Peripheral pulses intact. No lower extremity edema NEUROLOGIC: Awake and alert. Oriented x 3. ASSESSMENT: Shortness of breath Acute COPD exacerbation Acute on chronic heart failure with reduced EF, 15 to 20% Elevated troponins, type II MA secondary to oxygen supply/demand mismatch Coronary artery disease with previous stenting Ischemic cardiomyopathy History of AICD implantation Hypertension Hyperlipidemia Nicotine dependence Obesity: BMI 37.5 PLAN: Continue home cardiac medications: Aspirin, Eliquis, Lipitor, bisoprolol, Plavix, Farxiga, Imdur, Entresto, Aldactone Transition IV Lasix to oral Bumex 1 mg twice daily Patient is cleared for discharge from cardiology will follow-up with her solar pv installer at [facility] as scheduled. Nurse practitioner note has been reviewed by physician. Signing provider agrees with the documented findings, assessment, and plan of care documented by CHARGEMASTER ANALYST as a scribe. Objective - Vital Signs Vital signs: Vital Signs Temp 97.8 F 11/24/24 07:00 Pulse 65 11/24/24 07:00 Resp 17 11/24/24 07:00 BP 96/61 11/24/24 07:00 Pulse Ox 97 11/24/24 08:30 FiO2 Intake & Output 11/23/24 11/24/24 11/24/24 18:59 06:59 18:59 Intake Total 1190 1300 Output Total 1240 1300 Balance -50 0 Weight 93.3 kg Intake: Oral 1190 1300 Output: Urine 1240 1300 Other: Voiding Method External Catheter - Labs CBC & Chem 7: 11/23/24 05:59 11/23/24 05:59 Labs: Abnormal Lab Results - Last 24 Hours (Table) 11/23/24 11/23/24 11/23/24 Range/Units 05:59 05:59 12:08 WBC 10.50 H (4.50-10.00) X 10*3/uL RDW 16.9 H (11.5-14.5) % Neutrophils # 9.10 H (1.80-7.70) X 10*3/uL Eosinophils # 0 L (0.04-0.35) X 10*3/uL BUN/Creatinine Ratio 23.29 H (12.00-20.00) Ratio Glucose 131 H (70-110) mg/dL POC Glucose (mg/dL) 125 H (70-110) mg/dL 11/23/24 11/23/24 11/24/24 Range/Units 17:16 19:43 05:49 WBC (4.50-10.00) X 10*3/uL RDW (11.5-14.5) % Neutrophils # (1.80-7.70) X 10*3/uL Eosinophils # (0.04-0.35) X 10*3/uL BUN/Creatinine Ratio (12.00-20.00) Ratio Glucose (70-110) mg/dL POC Glucose (mg/dL) 135 H 194 H 139 H (70-110) mg/dL
[2024-11-24] MEDS: DOCUSATE 100 MG CAP PO PRN (11:13)
[2024-11-24 12:04] LABS: Glucose,Whole Blood 115 mg/dL (70-110)
--- NOTE | 2024-11-24 12:40 | P.PN ---
Subjective Progress Note Date: 11/24/24 This is a 49-year-old female patient with a known history of chronic tobacco dependence, chronic obstructive pulmonary disease, coronary artery disease with previous stent placements, ischemic cardiomyopathy, AICD placement, congestive heart failure, hypertension, hyperlipidemia, fibromyalgia, bipolar disorder, anxiety/depression, marijuana use. She presented here to the emergency room yesterday with chest pain, abdominal pain and shortness of breath. Multiple episodes of vomiting. Pain in her lower abdomen. Chest x-ray reveals pulmonary vascular congestion and possible bronchitis. CT scan of the abdomen revealed small bowel enteritis. Lives 324. Sodium 140. Potassium 3.9. Bicarb 28. BUN 12. Creatinine 0.82. Glucose 84. Troponin 0.06, 0.091. Urine drug screen positive for opiates, benzodiazepines and marijuana. Viral screen negative for influenza A/B, RSV or COVID. She is seen today in consultation in the emergency department. She is currently sitting up on a stretcher. Awake and alert in no acute distress. Is on 2 L/min per nasal cannula. She is afebrile. Hemodynamically stable. The patient is seen today November 23, 2024 in follow-up on the regular medical floor. She is currently sitting up in bed. Awake and alert in no acute distress. Breathing a bit easier today compared to yesterday. Still with some dyspnea with minimal exertion. She is maintaining O2 saturations in the upper 90s on 2 L/min per nasal cannula. She is afebrile. Hemodynamically stable. White count 10.5. Hemoglobin 12.2. Platelets 284. Sodium 136. Potassium 3.9. Bicarb 28. BUN 16. Creatinine 0.7. Glucose 131. She remains on Symbicort, DuoNeb and elations, Solu-Medrol. She remains on IV diuretics. Anticoagulated with Eliquis. Currently on -380 mL balance. Echocardiogram revealed severely impaired left ventricular systolic function with an ejection fraction of 20%. The patient is seen today November 24, 2024 in follow-up on the regular medical floor. She is currently sitting up in a chair at the bedside. Awake and alert in no acute distress. Denies any worsening shortness of breath, cough or congestion. No chest pain. She is maintaining good O2 saturations in the 90s on 3 L/min per nasal cannula. She remains on DuoNeb and elations, Symbicort, Solu-Medrol. Remains on oral diuretics. Continues to diurese well. Anticoagulated with Eliquis. Glucose 115. Objective - Vital Signs Vital signs: Vital Signs Temp 97.8 F 11/24/24 07:00 Pulse 65 11/24/24 08:00 Resp 17 11/24/24 08:00 BP 96/61 11/24/24 07:00 Pulse Ox 97 11/24/24 08:30 FiO2 Intake & Output 11/23/24 11/24/24 11/24/24 18:59 06:59 18:59 Intake Total 1190 1300 540 Output Total 1240 1300 625 Balance -50 0 -85 Weight 93.3 kg Intake: Oral 1190 1300 Other 540 Output: Urine 1240 1300 625 Other: Voiding Method External Catheter External Catheter - Exam GENERAL EXAM: Alert, pleasant 49-year-old female, up in a chair, on 3 L nasal cannula, in no apparent distress. HEAD: Normocephalic. EYES: Normal reaction of pupils, equal size. NOSE: Clear with pink turbinates. THROAT: No erythema or exudates. NECK: No masses, no JVD. CHEST: No chest wall deformity. LUNGS: Equal air entry with bibasilar crackles. CVS: S1 and S2 normal with an audible murmur, regular rhythm. ABDOMEN: No hepatosplenomegaly, normal bowel sounds, no guarding or rigidity. SPINE: No scoliosis or deformity SKIN: No rashes CENTRAL NERVOUS SYSTEM: No focal deficits, tone is normal in all 4 extremities. EXTREMITIES: There is no peripheral edema. No clubbing, no cyanosis. Peripheral pulses are intact. - Labs CBC & Chem 7: 11/23/24 05:59 11/23/24 05:59 Labs: Abnormal Lab Results - Last 24 Hours (Table) 11/23/24 11/23/24 11/24/24 Range/Units 17:16 19:43 05:49 POC Glucose (mg/dL) 135 H 194 H 139 H (70-110) mg/dL 11/24/24 Range/Units 12:02 POC Glucose (mg/dL) 115 H (70-110) mg/dL Assessment and Plan Assessment: Acute hypoxic respiratory failure secondary to an acute exacerbation of chronic systolic congestive heart failure and possible bronchitis. BNP 16,000. Procalcitonin less than 0.20. Troponin leak Coronary artery disease with previous stent placements Ischemic cardiomyopathy, status post AICD placement, maintained on Eliquis. Left ventricular systolic function with an ejection fraction of 20% Hypertension Hyperlipidemia Chronic tobacco dependence Chronic obstructive pulmonary disease Bipolar disorder Anxiety/depression Chronic back pain with previous pain pump Fibromyalgia Plan: The patient was seen and evaluated Labs and medications reviewed Cleared for discharge Continue her home medications Complete a prednisone taper Continue to follow-up with cardiology Follow-up closely with her PCP I have personally seen and examined the patient, performed the documentation and the assessment and plan as written. Number of minutes spent on the visit: 10 Dictation was produced using [employer] dictation software. Please excuse any grammatical, word or spelling errors.
--- NOTE | 2024-11-24 13:15 | P.DS ---
Providers Date of admission: 11/22/24 13:04 Expected date of discharge: 11/24/24 Attending physician: Ga Hooper Consults: 11/21/24 20:05 Consult Physician Routine Consulting Provider: John Montoya Consult Reason/Comments: chest pain Do you want consulting provider notified?: Yes, Notify in am 11/22/24 10:02 Consult Physician Routine Consulting Provider: Palmira Rebolledo Consult Reason/Comments: COPD Do you want consulting provider notified?: Yes Primary care physician: Brenden Rodriguez - Discharge Diagnosis(es) (1) Abdominal pain Current Visit: Yes Status: Acute (2) Chest pain Current Visit: Yes Status: Acute (3) HERLINDA (acute kidney injury) Current Visit: No Status: Acute (4) Acute on chronic systolic (congestive) heart failure Current Visit: No Status: Acute (5) Apical mural thrombus Current Visit: No Status: Acute (6) CAD (coronary artery disease) Current Visit: No Status: Acute (7) CHF (congestive heart failure) Current Visit: No Status: Acute (8) COPD (chronic obstructive pulmonary disease) Current Visit: No Status: Acute (9) Dehydration Current Visit: No Status: Acute (10) Depression with somatization Current Visit: No Status: Acute (11) Depression with suicidal ideation Current Visit: No Status: Acute (12) Depression, acute Current Visit: No Status: Acute (13) Dizziness Current Visit: No Status: Acute (14) History of hypertension Current Visit: No Status: Acute Hospital Course: Patient was started on prednisone and updraft treatment continued on current home meds General: [Patient awake, alert and oriented times 3. Patient in no acute distress.] HEENT: [PERRL. EOMI. No pharyngeal erythema or exudate.] Neck: [No adenopathy.] Cardiac: [Heart regular in rate and rhythm. No S3. No S4. No clicks, rubs. Grade 2 out of 5 systolic ejection murmur Lungs: [Clear to auscultation bilaterally.] Abdomen: [No mass. No organomegaly. Bowel sounds presnt and normoactive in all 4 quadrants.] Extremes: [No edema no cyanosis no claudication normal pulses] : Normal female genitalia Musculoskeletal: [No joint erythema, edema or tenderness.] Skin: [No rash.] Neurologic: [No lateralizing deficits. CN II - XII grossly intact.] Lymphatic: [No adenopathy.] Patient Condition at Discharge: Fair Plan - Discharge Summary Discharge Rx Participant: Yes New Discharge Prescriptions: New predniSONE 10 mg PO DIRECTED #30 tab No Action Omeprazole [PriLOSEC] 40 mg PO DAILY Atorvastatin [Lipitor] 80 mg PO DAILY Divalproex ER [Depakote ER] 1,000 mg PO DAILY Alendronate Sodium 70 mg PO COHEN Spironolactone [Aldactone] 25 mg PO DAILY Escitalopram [Lexapro] 20 mg PO DAILY Gabapentin [Neurontin] 900 mg PO TID Sacubitril/Valsartan [Entresto 24 mg-26 mg Tablet] 1 tab PO BID Patient Own Pump 0 bag Albuterol Sulfate [Ventolin HFA] 2 puff INHALATION RT-Q6H PRN PRN Reason: Shortness Of Breath Bumetanide [BUMEX] 1 mg PO BID Bisoprolol [Zebeta] 2.5 mg PO BID Clopidogrel [Plavix] 75 mg PO DAILY Empagliflozin [Jardiance] 10 mg PO DAILY Nitroglycerin Sl Tabs [Nitrostat] 0.4 mg SL Q5M PRN PRN Reason: Chest Pain Aspirin EC [Ecotrin Low Dose] 81 mg PO DAILY ALPRAZolam [Xanax] 0.25 mg PO BID PRN PRN Reason: Anxiety Apixaban [Eliquis] 2.5 mg PO BID Albuterol Nebulized [Ventolin Nebulized] 2.5 mg INHALATION RT-Q6H PRN PRN Reason: Shortness Of Breath Baclofen 10 mg PO BID Docusate [Colace] 100 mg PO DAILY PRN PRN Reason: Constipation Evolocumab [Repatha Sureclick] 140 mg SQ Q14D Isosorbide Mononitrate ER [Imdur] 30 mg PO DAILY oxyCODONE-APAP 7.5-325MG [Percocet 7.5-325 mg] 1 tab PO BID PRN PRN Reason: Pain metOLazone [Zaroxolyn] 2.5 mg PO DIRECTED Discharge Medication List Omeprazole [PriLOSEC] 40 mg PO DAILY 11/29/16 [History] Atorvastatin [Lipitor] 80 mg PO DAILY 11/30/16 [History] Divalproex ER [Depakote ER] 1,000 mg PO DAILY 02/06/17 [History] Alendronate Sodium 70 mg PO COHEN 06/29/17 [History] Spironolactone [Aldactone] 25 mg PO DAILY 11/19/19 [History] Escitalopram [Lexapro] 20 mg PO DAILY 04/27/20 [History] ALPRAZolam [Xanax] 0.25 mg PO BID PRN 02/12/23 [History] Aspirin EC [Ecotrin Low Dose] 81 mg PO DAILY 02/12/23 [History] Gabapentin [Neurontin] 900 mg PO TID 02/12/23 [History] Sacubitril/Valsartan [Entresto 24 mg-26 mg Tablet] 1 tab PO BID 02/12/23 [History] Albuterol Sulfate [Ventolin HFA] 2 puff INHALATION RT-Q6H PRN 01/25/24 [History] Patient Own Pump 0 bag 01/25/24 [History] Apixaban [Eliquis] 2.5 mg PO BID 07/03/24 [History] Bumetanide [BUMEX] 1 mg PO BID 07/03/24 [History] Albuterol Nebulized [Ventolin Nebulized] 2.5 mg INHALATION RT-Q6H PRN 11/22/24 [History] Baclofen 10 mg PO BID 11/22/24 [History] Bisoprolol [Zebeta] 2.5 mg PO BID 11/22/24 [History] Clopidogrel [Plavix] 75 mg PO DAILY 11/22/24 [History] Docusate [Colace] 100 mg PO DAILY PRN 11/22/24 [History] Empagliflozin [Jardiance] 10 mg PO DAILY 11/22/24 [History] Evolocumab [Repatha Sureclick] 140 mg SQ Q14D 11/22/24 [History] Isosorbide Mononitrate ER [Imdur] 30 mg PO DAILY 11/22/24 [History] Nitroglycerin Sl Tabs [Nitrostat] 0.4 mg SL Q5M PRN 11/22/24 [History] metOLazone [Zaroxolyn] 2.5 mg PO DIRECTED 11/22/24 [History] oxyCODONE-APAP 7.5-325MG [Percocet 7.5-325 mg] 1 tab PO BID PRN 11/22/24 [History] predniSONE 10 mg PO DIRECTED #30 tab 11/22/24 [Rx] Follow up Appointment(s)/Referral(s): Brenden Rodriguez MD [Primary Care Provider] - 1-2 days
[2024-11-24 13:33] LABS: BUN/Creat Ratio 28.75 Ratio (12.00-20.00); Calcium 9.7 mg/dL (8.7-10.3); Carbon Dioxide 28.5 mmol/L (21.6-31.8); Chloride 95 mmol/L (96-109); Glucose 137 mg/dL (70-110); Potassium 4.2 mmol/L (3.5-5.5); Sodium 137 mmol/L (135-145)
[2024-11-24] MEDS ORDERED: BUMETANIDE 1 MG TAB PO SCH (16:00)
== END 2024-11-24 13:41 | disposition home or self-care (01) | DRG 280 ==
LOC: EC 14:44 → 6NMEDSUR 20:06 → 3SCARD 22:24 → 6NMEDSUR 11-22 08:34 → OBSVTOIN 11-22 13:04
PROVIDERS: ADMIT Family Medicine; ATTEND Family Medicine
DX: I25.10 Atherosclerotic heart disease of native coronary artery without angina pectoris (principal); I50.23 Acute on chronic systolic (congestive) heart failure; I21.A1 Myocardial infarction type 2; J96.22 Acute and chronic respiratory failure with hypercapnia; J96.21 Acute and chronic respiratory failure with hypoxia; J44.1 Chronic obstructive pulmonary disease with (acute) exacerbation; I11.0 Hypertensive heart disease with heart failure; E66.01 Morbid (severe) obesity due to excess calories; F31.9 Bipolar disorder, unspecified; T82.855A Stenosis of coronary artery stent, initial encounter; N17.9 Acute kidney failure, unspecified; R45.851 Suicidal ideations; I51.3 Intracardiac thrombosis, not elsewhere classified; E86.0 Dehydration; F45.0 Somatization disorder; I25.5 Ischemic cardiomyopathy; E78.5 Hyperlipidemia, unspecified; F41.9 Anxiety disorder, unspecified; K52.9 Noninfective gastroenteritis and colitis, unspecified; M79.7 Fibromyalgia; Z79.84 Long term (current) use of oral hypoglycemic drugs; Z68.38 Body mass index [BMI] 38.0-38.9, adult; Z79.82 Long term (current) use of aspirin; I25.2 Old myocardial infarction; Z79.01 Long term (current) use of anticoagulants; Z79.899 Other long term (current) drug therapy; Z79.02 Long term (current) use of antithrombotics/antiplatelets; Z95.810 Presence of automatic (implantable) cardiac defibrillator; Z87.891 Personal history of nicotine dependence; Z97.8 Presence of other specified devices; Z86.718 Personal history of other venous thrombosis and embolism; Z99.81 Dependence on supplemental oxygen; Y71.1 Therapeutic (nonsurgical) and rehabilitative cardiovascular devices associated with adverse incidents
CPT/HCPCS: 36415; 71046; 74177; 80048; 80053; 80306; 81003; 82150; 83036; 83690; 83735; 83880; 84145; 84484; 85025; 85610; 85730; 87636; 93005; 93308; 94640; 94760; 96361; 96365; 96366; 96375; 96376; 99285

== ENCOUNTER → 2025-01-29 | Outpatient (CLI) | payer MEDICARE ==
--- NOTE | 2025-01-29 09:12 | MM ---
Reason for Exam: Clinical finding. Last mammogram was performed 6 year(s) and 3 month(s) ago. Indicated Problems: Lump or thickening of the left side for 2 Week(s). Patient History: Menarche at age 13. First Full-Term at age 15. Postmenopausal. Hormonal Contraceptives for 13 years from age 15 until age 28. Risk Values: Belem 5 year model risk: 0.7%. NCI Lifetime model risk: 6.6%. Prior Study Comparison: 10/29/2018 Bilateral Screening Mammogram, [facility]. Tissue Density: There are scattered areas of fibroglandular density. Findings: Analyzed By CAD. Left axillary pacemaker device is partially imaged similar prior. No suspicious mass or group of microcalcification in either breast. Overall Assessment: Incomplete: need additional imaging evaluation, BI-RAD 0 Management: Diagnostic Breast Ultrasound of the left breast. Targeted ultrasound left breast due to palpable abnormality. Results were given to the patient verbally at the time of exam. Patient should continue monthly self-breast exams. A clinical breast exam by your physician is recommended on an annual basis. This exam should not preclude additional follow-up of suspicious palpable abnormalities. Note on Belem scores and lifetime risk: 1. A Belem score greater than 3% is considered moderate risk. If this is the case, consider specialist referral to assess eligibility for a risk reducing agent. 2. If overall lifetime risk for the development of breast cancer is 20% or higher, the patient may qualify for future screening with alternating mammogram and breast MRI. [facility], , 01/29/2025 9:09 AM. Electronically signed and approved by: Sonny Zeng M.D.
--- NOTE | 2025-01-29 10:00 | USB ---
Reason for Exam: Clinical finding. Patient History: Menarche at age 13. First Full-Term at age 15. Postmenopausal. Hormonal Contraceptives for 13 years from age 15 until age 28. Risk Values: [place] 5 year model risk: 0.7%. NCI Lifetime model risk: 6.6%. Technique: Method: Targeted. Prior Study Comparison: 10/29/2018 Bilateral Screening Mammogram, [facility]. Findings: The area of palpable concern of the left breast, the axilla of the left breast and the retroareolar of the left breast were scanned. Targeted ultrasound. At the level of palpable abnormality 1:00 position 5 cm distance from nipple there is oval 1.2 x 0.5 x 1.4 cm hyperechoic area just below the dermal layer. Possible lipoma or resolving hematoma if recent trauma. Benign-appearing lymph node in the left axilla is present. Overall Assessment: Probably benign, BI-RAD 3 Management: Diagnostic Breast Ultrasound of the left breast in 4 months. Precautionary short-term follow-up diagnostic left breast ultrasound in 3-6 months time. A clinical breast exam by your physician is recommended on an annual basis and results should be correlated with mammographic findings. This exam should not preclude additional follow-up of suspicious palpable abnormalities. Results were given to the patient verbally at the time of exam. [facility], , 01/29/2025 9:56 AM. Electronically signed and approved by: Sonny Zeng M.D.
== END | disposition home or self-care (01) ==
LOC: RADMAMWWP 08:30
PROVIDERS: ATTEND Family Medicine
DX: R92.323 Mammographic fibroglandular density, bilateral breasts (principal); N63.21 Unspecified lump in the left breast, upper outer quadrant; Z78.0 Asymptomatic menopausal state; Z92.0 Personal history of contraception
CPT/HCPCS: 77066; 76642; G0279; 77062

== ENCOUNTER 2025-01-31 09:53 | Observation (INO) | payer MEDICARE ==
[2025-01-31] MEDS: SODIUM CHLORIDE 0.9% 500 ML 500 ML IV ONE (11:28)
[2025-01-31] MEDS: ACETAMINOPHEN TAB 500 MG TAB PO STA (11:29)
[2025-01-31 11:30] LABS: Basophils # (A) 0.04 10*3/uL (0.00-0.10); Basophils % (A) 0.4 %; Eosinophils # (A) 0.00 10*3/uL (0.04-0.35); Eosinophils % (A) 0.0 %; HCT 45.3 % (37.2-46.3); HGB 15.3 g/dL (12.0-15.0); Lymphocytes # (A) 0.86 10*3/uL (0.90-5.00); Lymphocytes % (A) 9.4 %; MCH 29.4 pg (27.0-32.0); MCHC 33.8 g/dL (32.0-37.0); MCV 86.9 fL (80.0-97.0); Monocytes # (A) 0.24 10*3/uL (0.20-1.00); Monocytes % (A) 2.6 %; Neutrophils # (A) 7.98 10*3/uL (1.80-7.70); Neutrophils % (A) 87.4 %; Platelet Count 306 10*3/uL (140-440); RBC 5.21 10*6/uL (4.10-5.20); RDW 19.6 % (11.5-14.5); WBC 9.14 10*3/uL (4.50-10.00)
[2025-01-31] MEDS: ONDANSETRON 4 MG/2 ML VIAL IVP STA (11:32)
[2025-01-31 11:42] LABS: INR 1.0 (<1.2); Partial Thromboplastin Time 26.0 sec (22.0-30.0); Prothrombin Time 11.4 sec (10.0-12.5)
--- NOTE | 2025-01-31 11:58 | XR ---
EXAMINATION TYPE: XR chest 2V DATE OF EXAM: 01/31/2025 11:45 AM COMPARISON: Chest radiographs from 11/21/2024. CLINICAL INDICATION: Female, 49 years old with history of difficulty breathing; [facility] TECHNIQUE: XR chest 2V Frontal and lateral views of the chest. FINDINGS: Lungs/Pleura: There is no evidence of pleural effusion, focal consolidation, or pneumothorax. Pulmonary vascularity: Unremarkable. Heart/mediastinum: Cardiomediastinal silhouette is unremarkable. Single-lead cardiac conduction devic e overlying the left hemithorax with lead projecting over the right ventricle. Musculoskeletal: No acute osseous pathology. IMPRESSION: No acute cardiopulmonary disease/process. [facility], , 01/31/2025 11:56 AM
[2025-01-31 12:05] LABS: ALT 15 U/L (4-34); AST 21 U/L (14-36); African American GFR (CKD) >90 (>60 ml/min/1.73 sqM); Albumin 4.5 g/dL (3.5-5.0); Alkaline Phosphatase 77 U/L (38-126); Anion Gap 10 mmol/L; Blood Urea Nitrogen 21 mg/dL (7-17); Calcium 10.0 mg/dL (8.4-10.2); Carbon Dioxide 30 mmol/L (22-30); Chloride 101 mmol/L (98-107); Glucose 141 mg/dL (74-99); Magnesium 2.0 mg/dL (1.6-2.3); Non-African American GFR(CKD) >90 (>60 ml/min/1.73 sqM); Potassium 3.4 mmol/L (3.5-5.1); Sodium 141 mmol/L (137-145); Total Protein 7.5 g/dL (6.3-8.2)
[2025-01-31 12:12] LABS: NT-Pro-B-Type Natriuretic Pept 7860 pg/mL
--- NOTE | 2025-01-31 13:11 | ED ---
General Adult HPI - General Chief complaint: Nausea/Vomiting/Diarrhea Stated complaint: Abn BP,Vomiting Time Seen by Provider: 01/31/25 10:25 Source: patient, RN notes reviewed, old records reviewed Mode of arrival: wheelchair Limitations: no limitations - History of Present Illness Initial comments: This is a 49-year-old female who presents to the emergency department complaining of difficulty breathing and nausea and vomiting. Patient also is complaining of elevated blood pressure. Patient denies any headache patient has any blurred vision. Patient states she has a past medical history of congestive heart failure and multiple stents. Patient denies any chest pain today. Patient states she normally wears 2 L of oxygen at home. Patient was oxygenating in the 80s when he took off the oxygen. - Related Data Home Medications Medication Instructions Recorded Confirmed Omeprazole [PriLOSEC] 40 mg PO DAILY 11/29/16 11/22/24 Atorvastatin [Lipitor] 80 mg PO DAILY 11/30/16 11/22/24 Divalproex ER [Depakote ER] 1,000 mg PO DAILY 02/06/17 11/22/24 Alendronate Sodium 70 mg PO COHEN 06/29/17 11/22/24 Spironolactone [Aldactone] 25 mg PO DAILY 11/19/19 11/22/24 Escitalopram [Lexapro] 20 mg PO DAILY 04/27/20 11/22/24 ALPRAZolam [Xanax] 0.25 mg PO BID PRN 02/12/23 11/22/24 Aspirin EC [Ecotrin Low Dose] 81 mg PO DAILY 02/12/23 11/22/24 Gabapentin [Neurontin] 900 mg PO TID 02/12/23 11/22/24 Sacubitril/Valsartan [Entresto 24 1 tab PO BID 02/12/23 11/22/24 mg-26 mg Tablet] Albuterol Sulfate [Ventolin HFA] 2 puff INHALATION RT-Q6H PRN 01/25/24 11/22/24 Patient Own Pump 0 bag 01/25/24 Apixaban [Eliquis] 2.5 mg PO BID 07/03/24 11/22/24 Bumetanide [BUMEX] 1 mg PO BID 07/03/24 11/22/24 Albuterol Nebulized [Ventolin 2.5 mg INHALATION RT-Q6H PRN 11/22/24 11/22/24 Nebulized] Baclofen 10 mg PO BID 11/22/24 11/22/24 Bisoprolol [Zebeta] 2.5 mg PO BID 11/22/24 11/22/24 Clopidogrel [Plavix] 75 mg PO DAILY 11/22/24 11/22/24 Docusate [Colace] 100 mg PO DAILY PRN 11/22/24 11/22/24 Empagliflozin [Jardiance] 10 mg PO DAILY 11/22/24 11/22/24 Evolocumab [Repatha Sureclick] 140 mg SQ Q14D 11/22/24 11/22/24 Isosorbide Mononitrate ER [Imdur] 30 mg PO DAILY 11/22/24 11/22/24 Nitroglycerin Sl Tabs [Nitrostat] 0.4 mg SL Q5M PRN 11/22/24 11/22/24 metOLazone [Zaroxolyn] 2.5 mg PO DIRECTED 11/22/24 11/22/24 oxyCODONE-APAP 7.5-325MG [Percocet 1 tab PO BID PRN 11/22/24 11/22/24 7.5-325 mg] Previous Rx's Medication Instructions Recorded predniSONE 10 mg PO DIRECTED #30 tab 11/22/24 Allergies Allergy/AdvReac Type Severity Reaction Status Date / Time moxifloxacin HCl Allergy Rash/Hives Verified 01/31/25 10:26 [From Avelox] Review of Systems ROS Statement: Those systems with pertinent positive or pertinent negative responses have been documented in the HPI. ROS Other: All systems not noted in ROS Statement are negative. Past Medical History Past Medical History: Asthma, Coronary Artery Disease (CAD), Chest Pain / Angina, Heart Failure, COPD, Fibromyalgia, GERD/Reflux, Hyperlipidemia, Hypertension, Myocardial Infarction ([place]), Musculoskeletal Disorder, Osteoarthrit is (OA), Pneumonia Additional Past Medical History / Comment(s): Has Pain Pump and AICD. Ishemic Cardiomyopathy. Hx [place] X3 - 2004, 2012, 2017. Hx bronchitis. Chronic back pain, lumbar Degenerative Disc Disease, occasional neck pain, osteoporosis, migraines. Hx UTIs, kidney stones. Vertigo. Last Myocardial Infarction Date:: 2017 History of Any Multi-Drug Resistant Organisms: None Reported Past Surgical History: AICD, Heart Catheterization, Heart Catheterization With Stent, Orthopedic Surgery, Tubal Ligation Additional Past Surgical History / Comment(s): Multiple stents (pt unable to state how many), left hand surgery, pain clinic procedures, Medtronic Pain Pump surgically implanted. Past Anesthesia/Blood Transfusion Reactions: No Reported Reaction, Motion Sickness Date of Last Stent Placement:: 08-13-16 Type of Cardiac Device: AICD Device Placement Date:: 2016 [place]. Past Psychological History: Anxiety, Bipolar, Depression Smoking Status: Former smoker Past Alcohol Use History: Occasional Past Drug Use History: Marijuana - Past Family History Mother Family Medical History: Coronary Artery Disease (CAD), Fibromyalgia, Hyperlipidemia Additional Family Medical History / Comment(s): Emotional problems, bipolar. Father Family Medical History: CVA/TIA, Fibromyalgia, Hyperlipidemia, Hypertension, Musculoskeletal Disorder Additional Family Medical History / Comment(s): MS. Sister(s) History Unknown: Yes Family Medical History: Hyperlipidemia General Exam - General Exam Comments Initial Comments: GENERAL: Patient is well-developed and well-nourished. Patient is nontoxic and well-hydrated and is in mild distress. ENT: Neck is soft and supple. No significant lymphadenopathy is noted. Oropharynx is clear. Moist mucous membranes. Neck has full range of motion without eliciting any pain. EYES: The sclera were anicteric and conjunctiva were pink and moist. Extraocular movements were intact and pupils were equal round and reactive to light. Eyelids were unremarkable. PULMONARY: Unlabored respirations. Good breath sounds bilaterally. No audible rales rhonchi or wheezing was noted. CARDIOVASCULAR: There is a regular rate and rhythm without any murmurs gallops or rubs. ABDOMEN: Soft and nontender with normal bowel sounds. SKIN: Skin is clear with no lesions or rashes and otherwise unremarkable. NEUROLOGIC: Patient is alert and oriented x3. Cranial nerves II through XII are grossly intact. Motor and sensory are also intact. Normal speech, volume and content. Symmetrical smile. MUSCULOSKELETAL: Normal extremities with adequate strength and full range of motion. LYMPHATICS: No significant lymphadenopathy is noted PSYCHIATRIC: Normal psychiatric evaluation. Limitations: no limitations Course Vital Signs 01/31/25 01/31/25 01/31/25 10:22 11:00 11:07 Temperature 99.1 F 99.7 F H Pulse Rate 79 79 Respiratory 18 18 Rate Blood Pressure 119/71 146/85 O2 Sat by Pulse 97 93 L Oximetry Medical Decision Making - Medical Decision Making EKG is interpreted by myself and EKG shows a sinus rhythm occasional PVCs at 70 bpm CA interval 166 QRS 142 QT interval is 461 QTc is 481. Patient's EKG shows no ST segment elevation Was pt. sent in by a medical professional or institution (, PATRICIA, HEAD START DIRECTOR, urgent care, hospital, or retirement...) When possible be specific @ -No Did you speak to anyone other than the patient for history (EMS, parent, family, police, friend...)? What history was obtained from this source @ -No Did you review nursing and triage notes (agree or disagree)? Why? @ -I reviewed and agree with nursing and triage notes Were old charts reviewed (outside hosp., previous admission, EMS record, old EKG, old radiological studies, urgent care reports/EKG's, retirement records)? Report findings @ -No old charts were reviewed Differential Diagnosis? @ -Differential Dyspnea: Coronary syndrome, arrhythmia, tamponade, asthma, COPD, pulmonary embolism, pneumonia, pneumothorax, pulmonary effusion, anaphylaxis, diabetic ketoacidosis, flailed chest, pulmonary contusion, diaphragmatic rupture, anemia, neuromuscular, this is not meant to be an all-inclusive list. EKG interpreted by me (3pts min.). @ -As above X-rays interpreted by me (1pt min.). @ -Chest x-ray shows no acute abnormality CT interpreted by me (1pt min.). @ -None done U/S interpreted by me (1pt. min.). @ -None done What testing was considered but not performed or refused? (CT, X-rays, U/S, labs)? Why? @ -None What meds were considered but not given or refused? Why? @ -None Did you discuss the management of the patient with other professionals (professionals i.e. PATRICIA Hicks, HEAD START DIRECTOR, lab, RT, psych nurse, social science professor, mold yard worker, teacher, welfare officer, pillowcase cleaner)? Give summary @ -I spoke with Dr. Mello he agreed to admit the patient Was smoking cessation discussed for >3mins.? @ -No Was critical care preformed (if so, how long)? @ -No Were there social determinants of health that impacted care today? How? (Homelessness, low income, unemployed, alcoholism, drug addiction, transportation, low edu. Level, literacy, decrease access to med. care, correction, rehab)? @ -No Was there de-escalation of care discussed even if they declined (Discuss DNR or withdrawal of care, Hospice)? DNR status @ -No What co-morbidities impacted this encounter? (DM, HTN, Smoking, COPD, CAD, Cancer, CVA, ARF, Chemo, Hep., AIDS, mental health diagnosis, sleep apnea, morbid obesity)? @ -None Was patient admitted / discharged? Hospital course, mention meds given and route, prescriptions, significant lab abnormalities, going to OR and other pertinent info. @ -Hospital course Undiagnosed new problem with uncertain prognosis? @ -No Drug Therapy requiring intensive monitoring for toxicity (Heparin, Nitro, Insulin, Cardizem)? @ -No Were any procedures done? @ -No Diagnosis/symptom? @ -Acute vomiting Acute, or Chronic, or Acute on Chronic? @ -Acute Uncomplicated (without systemic symptoms) or Complicated (systemic symptoms)? @ -Complicated Side effects of treatment? @ -No Exacerbation, Progression, or Severe Exacerbation? @ -No Poses a threat to life or bodily function? How? (Chest pain, [place], [place], pneumonia, PE, COPD, DKA, ARF, appy, cholecystitis, CVA, Diverticulitis, Homicidal, Suicidal, threat to staff... and all critical care pts) @ -No Diagnosis/symptom? @ -Weakness Acute, or Chronic, or Acute on Chronic? @ -Acute Uncomplicated (without systemic symptoms) or Complicated (systemic symptoms)? @ -Uncomplicated Side effects of treatment? @ -None Exacerbation, Progression, or Severe Exacerbation] @ -No Poses a threat to life or bodily function? @ -No - Lab Data Result diagrams: 01/31/25 11:17 01/31/25 11:23 Lab Results 01/31/25 01/31/25 01/31/25 Range/Units 11:17 11:23 11:23 WBC 9.14 (4.50-10.00) 10*3/uL RBC 5.21 H (4.10-5.20) 10*6/uL Hgb 15.3 H (12.0-15.0) g/dL Hct 45.3 (37.2-46.3) % MCV 86.9 (80.0-97.0) fL MCH 29.4 (27.0-32.0) pg MCHC 33.8 (32.0-37.0) g/dL Plt Count 306 (140-440) 10*3/uL MPV 9.5 (9.5-12.2) fL Immature Gran % (Auto) 0.2 % Neutrophils % 87.4 % Lymphocytes % 9.4 % Monocytes % 2.6 % Eosinophils % 0.0 % Basophils % 0.4 % Immature Gran # 0.02 (0.00-0.04) 10*3/uL Neutrophils # 7.98 H (1.80-7.70) 10*3/uL Lymphocytes # 0.86 L (0.90-5.00) 10*3/uL Monocytes # 0.24 (0.20-1.00) 10*3/uL Eosinophils # 0.00 L (0.04-0.35) 10*3/uL Basophils # 0.04 (0.00-0.10) 10*3/uL PT 11.4 (10.0-12.5) sec INR 1.0 (<1.2) APTT 26.0 (22.0-30.0) sec Sodium 141 (137-145) mmol/L Potassium 3.4 L (3.5-5.1) mmol/L Chloride 101 (98-107) mmol/L Carbon Dioxide 30 (22-30) mmol/L Anion Gap 10 mmol/L BUN 21 H (7-17) mg/dL Creatinine 0.71 (0.52-1.04) mg/dL Est GFR (CKD-EPI)AfAm >90 (>60 ml/min/1.73 sqM) Est GFR (CKD-EPI)NonAf >90 (>60 ml/min/1.73 sqM) Glucose 141 H (74-99) mg/dL Plasma Lactic Acid Ramsey (0.7-2.0) mmol/L Calcium 10.0 (8.4-10.2) mg/dL Magnesium 2.0 (1.6-2.3) mg/dL Total Bilirubin 0.7 (0.2-1.3) mg/dL AST 21 (14-36) U/L ALT 15 (4-34) U/L Alkaline Phosphatase 77 (38-126) U/L Troponin I (0.000-0.034) ng/mL NT-Pro-B Natriuret Pep 7860 pg/mL Total Protein 7.5 (6.3-8.2) g/dL Albumin 4.5 (3.5-5.0) g/dL 01/31/25 01/31/25 Range/Units 11:23 11:23 WBC (4.50-10.00) 10*3/uL RBC (4.10-5.20) 10*6/uL Hgb (12.0-15.0) g/dL Hct (37.2-46.3) % MCV (80.0-97.0) fL MCH (27.0-32.0) pg MCHC (32.0-37.0) g/dL Plt Count (140-440) 10*3/uL MPV (9.5-12.2) fL Immature Gran % (Auto) % Neutrophils % % Lymphocytes % % Monocytes % % Eosinophils % % Basophils % % Immature Gran # (0.00-0.04) 10*3/uL Neutrophils # (1.80-7.70) 10*3/uL Lymphocytes # (0.90-5.00) 10*3/uL Monocytes # (0.20-1.00) 10*3/uL Eosinophils # (0.04-0.35) 10*3/uL Basophils # (0.00-0.10) 10*3/uL PT (10.0-12.5) sec INR (<1.2) APTT (22.0-30.0) sec Sodium (137-145) mmol/L Potassium (3.5-5.1) mmol/L Chloride (98-107) mmol/L Carbon Dioxide (22-30) mmol/L Anion Gap mmol/L BUN (7-17) mg/dL Creatinine (0.52-1.04) mg/dL Est GFR (CKD-EPI)AfAm (>60 ml/min/1.73 sqM) Est GFR (CKD-EPI)NonAf (>60 ml/min/1.73 sqM) Glucose (74-99) mg/dL Plasma Lactic Acid Ramsey 0.9 (0.7-2.0) mmol/L Calcium (8.4-10.2) mg/dL Magnesium (1.6-2.3) mg/dL Total Bilirubin (0.2-1.3) mg/dL AST (14-36) U/L ALT (4-34) U/L Alkaline Phosphatase (38-126) U/L Troponin I <0.012 (0.000-0.034) ng/mL NT-Pro-B Natriuret Pep pg/mL Total Protein (6.3-8.2) g/dL Albumin (3.5-5.0) g/dL Disposition Clinical Impression: Acute vomiting, Weakness Disposition: ADMITTED IP TO THIS HOSP Referrals: Ga Hooper Jr, [Primary Care Provider] - 1-2 days Time of Disposition: 13:18
[2025-01-31] MEDS: ONDANSETRON ODT 4 MG TAB PO PRN (16:20)
[2025-01-31] MEDS ORDERED: ALPRAZolam 0.25 MG TAB PO PRN (17:38)
[2025-01-31] MEDS ORDERED: ALBUTEROL HFA INHALER INHALATION PRN (17:38)
[2025-01-31] MEDS ORDERED: ALBUTEROL NEBULIZED 2.5 MG/3 ML INHALATION PRN (17:38)
[2025-01-31] MEDS ORDERED: NITROGLYCERIN SL TABS 0.4 MG TAB SUBLINGUAL PRN (17:46)
[2025-01-31] MEDS ORDERED: BACLOFEN 10 MG TAB PO PRN (17:46)
[2025-01-31] MEDS ORDERED: NON FORMULARY DRUG (Ubrogepant [Ubrelvy] 100 MG Tablet) PO PRN (17:46)
[2025-01-31] MEDS ORDERED: Potassium Replacement Protocol 1 EACH MISC MISCELLANE PRN (17:49)
[2025-01-31] MEDS ORDERED: NON FORMULARY DRUG (Evolocumab [Repatha Sureclick] 140 MG/ML Each) SQ SCH (18:00)
[2025-01-31] MEDS: POTASSIUM CHLORIDE ER 20 MEQ TAB.ER PO SCH ×2 (18:26→18:33)
[2025-01-31 18:50] VITALS: RESP 16
[2025-01-31] MEDS: SYMBICORT 160-4.5 MCG INHALER INHALATION SCH (19:56)
[2025-01-31] MEDS: SACUBITRIL/VALSARTAN 24 MG-26 MG TABLET PO SCH (21:06)
[2025-01-31] MEDS: APIXABAN 2.5 MG TABLET PO SCH (21:06)
[2025-01-31] MEDS: BUMETANIDE 1 MG TAB PO SCH (21:06)
[2025-01-31] MEDS: GABAPENTIN 300 MG CAP PO SCH (21:07)
[2025-01-31] MEDS: BISOPROLOL 5 MG TAB PO SCH (21:08)
[2025-01-31] MEDS: oxyCODONE-APAP 7.5-325MG 1 EACH TAB PO PRN (22:24)
[2025-02-01] MEDS: POTASSIUM CHLORIDE ER 20 MEQ TAB.ER PO SCH (01:56)
[2025-02-01] MEDS: PANTOPRAZOLE 40 MG TABLET PO SCH (06:31)
[2025-02-01] MEDS ORDERED: TIOTROPIUM 2.5 MCG INHALER INHALATION SCH (08:00)
[2025-02-01 08:31] VITALS: BP 114/66; PULSE 63; TEMP 98.5
[2025-02-01] MEDS: DAPAGLIFLOZIN PROPANEDIOL 5 MG TABLET PO SCH (08:47)
[2025-02-01] MEDS: ATORVASTATIN 80 MG TAB PO SCH (08:47)
[2025-02-01] MEDS: DIVALPROEX ER 500 MG TAB.ER.24H PO SCH (08:48)
[2025-02-01] MEDS: CLOPIDOGREL 75 MG TAB PO SCH (08:48)
[2025-02-01] MEDS: ESCITALOPRAM 20 MG TAB PO SCH (08:48)
[2025-02-01] MEDS: ASPIRIN 81 MG PO SCH (08:48)
[2025-02-01] MEDS ORDERED: ISOSORBIDE MONONITRATE ER 30 MG TAB.ER.24H PO SCH (09:00)
--- NOTE | 2025-02-01 10:01 | P.HPIM ---
History of Present Illness H&P Date: 02/01/25 Chief Complaint: Nausea vomiting loose stool Patient presented to the emergency room yesterday evening with chief complaint of weakness nausea vomiting loose stool, the vomiting has stopped nausea is minimal the labs were reviewed and within normal limits patient is rehydrated, patient is awake alert vital signs are stable patient does not complain of difficulty breathing at this time denies chest pain is normally on 2 L of oxygen at home and still smokes cigarettes intermittently Review of Systems Constitutional: Reports fatigue, Reports weakness Ears, nose, mouth and throat: Reports as per HPI Cardiovascular: Reports irregular heart beat (Chronic dyspnea poor EF less than 25%) Respiratory: Reports dyspnea (Back to baseline) Gastrointestinal: Reports nausea, Reports vomiting Genitourinary: Reports stress incontinence Menstruation: Reports postmenopausal Musculoskeletal: Reports as per HPI Integumentary: Reports as per HPI Psychiatric: Reports anhedonia, Reports anxiety, Reports depression Endocrine: Reports polyphagia, Reports polyuria Past Medical History Past Medical History: Asthma, Coronary Artery Disease (CAD), Chest Pain / Angina, Heart Failure, COPD, Fibromyalgia, GERD/Reflux, Hyperlipidemia, Hypertension, Myocardial Infarction ([place]), Musculoskeletal Disorder, Osteoarthritis (OA), Pneumonia Additional Past Medical History / Comment(s): Has Pain Pump and AICD. Ishemic Cardiomyopathy. Hx [place] X3 - 2004, 2012, 2017. Hx bronchitis. Chronic back pain, lumbar Degenerative Disc Disease, occasional neck pain, osteoporosis, migraines. Hx UTIs, kidney stones. Vertigo. Last Myocardial Infarction Date:: 2016 History of Any Multi-Drug Resistant Organisms: None Reported Past Surgical History: AICD, Heart Catheterization, Heart Catheterization With Stent, Orthopedic Surgery, Tubal Ligation Additional Past Surgical History / Comment(s): Multiple stents (pt unable to state how many), left hand surgery, pain clinic procedures, Medtronic Pain Pump surgically implanted. Past Anesthesia/Blood Transfusion Reactions: No Reported Reaction, Motion Sickness Date of Last Stent Placement:: 08-13-16 Type of Cardiac Device: AICD Device Placement Date:: 2016 [employer]. Past Psychological History: Anxiety, Bipolar, Depression Additional Psychological History / Comment(s): . Smoking Status: Former smoker Past Alcohol Use History: Occasional Additional Past Alcohol Use History / Comment(s): Started smoking in 1988, about 1 ppd, quit 09/21/19, restarted in 2020 quit 2022. No longer drinks alcohol. Past Drug Use History: Marijuana Additional Drug Use History / Comment(s): Medical Marijuana use occasionally. - Past Family History Mother Family Medical History: Coronary Artery Disease (CAD), Fibromyalgia, Hyperlipidemia Additional Family Medical History / Comment(s): Emotional problems, bipolar. Father Family Medical History: CVA/TIA, Fibromyalgia, Hyperlipidemia, Hypertension, Musculoskeletal Disorder Additional Family Medical History / Comment(s): MS. Sister(s) History Unknown: Yes Family Medical History: Hyperlipidemia Medications and Allergies Home Medications Medication Instructions Recorded Confirmed Type RX: Omeprazole [PriLOSEC] 40 mg PO DAILY 11/29/16 01/31/25 History RX: Atorvastatin [Lipitor] 80 mg PO DAILY 11/30/16 01/31/25 History RX: Divalproex ER [Depakote ER] 1,000 mg PO DAILY 02/06/17 01/31/25 History RX: Alendronate Sodium 70 mg PO COHEN 06/29/17 01/31/25 History RX: Spironolactone [Aldactone] 25 mg PO DAILY 11/19/19 01/31/25 History RX: Escitalopram [Lexapro] 20 mg PO DAILY 04/27/20 01/31/25 History RX: ALPRAZolam [Xanax] 0.25 mg PO DAILY PRN 02/12/23 01/31/25 History RX: Aspirin EC [Ecotrin Low Dose] 81 mg PO DAILY 02/12/23 01/31/25 History RX: Gabapentin [Neurontin] 900 mg PO TID 02/12/23 01/31/25 History RX: Sacubitril/Valsartan [Entresto 1 tab PO BID 02/12/23 01/31/25 History 24 mg-26 mg Tablet] RX: Albuterol Sulfate [Ventolin 2 puff INHALATION RT-Q6H PRN 01/25/24 01/31/25 History HFA] RX: Patient Own Pump 0 bag 01/25/24 History RX: Apixaban [Eliquis] 2.5 mg PO BID 07/03/24 01/31/25 History RX: Bumetanide [BUMEX] 1 mg PO BID 07/03/24 01/31/25 History Albuterol Nebulized [Ventolin 2.5 mg INHALATION RT-Q6H PRN 11/22/24 01/31/25 History Nebulized] Bisoprolol [Zebeta] 2.5 mg PO BID 11/22/24 01/31/25 History Clopidogrel [Plavix] 75 mg PO DAILY 11/22/24 01/31/25 History Empagliflozin [Jardiance] 10 mg PO DAILY 11/22/24 01/31/25 History Evolocumab [Repatha Sureclick] 140 mg SQ Q14D 11/22/24 01/31/25 History RX: Baclofen 10 mg PO BID PRN 11/22/24 01/31/25 History RX: Nitroglycerin Sl Tabs 0.4 mg SL Q5M PRN 11/22/24 01/31/25 History [Nitrostat] metOLazone [Zaroxolyn] 2.5 mg PO MOTH 11/22/24 01/31/25 History oxyCODONE-APAP 7.5-325MG [Percocet 1 tab PO BID PRN 11/22/24 01/31/25 History 7.5-325 mg] Fluticasone/Umeclidin/Vilanter 1 puff INHALATION RT-DAILY 01/31/25 01/31/25 History [Trelegy Ellipta 200-62.5-25] Isosorbide Mononitrate ER [Imdur] 30 mg PO DAILY 01/31/25 01/31/25 History Potassium Chloride ER [K-Dur 10] 20 meq PO DAILY 01/31/25 01/31/25 History Ubrogepant [Ubrelvy] 100 mg PO BID PRN 01/31/25 01/31/25 History traZODone HCL [Desyrel] 50 mg PO HS PRN 01/31/25 01/31/25 History Allergies Allergy/AdvReac Type Severity Reaction Status Date / Time moxifloxacin HCl Allergy Rash/Hives Verified 01/31/25 14:10 [From Avelox] Physical Exam Osteopathic Statement: *. No significant issues noted on an osteopathic structural exam other than those noted in the History and Physical/Consult. Vitals: Vital Signs Temp Pulse Pulse Resp BP BP Pulse Ox 02/01/25 07:23 98.5 F 63 16 114/66 97 02/01/25 00:50 98.3 F 64 16 93/59 94 L 01/31/25 19:03 98.6 F 68 16 115/70 98 01/31/25 17:30 98.2 F 69 16 145/77 99 01/31/25 16:20 68 18 115/52 97 01/31/25 15:20 99.0 F 77 18 125/77 96 01/31/25 11:07 99.7 F H 01/31/25 11:00 79 18 146/85 93 L 01/31/25 10:22 99.1 F 79 18 119/71 97 Intake and Output 01/31/25 02/01/25 02/01/25 22:59 06:59 14:59 Other: # Voids 1 Weight 95.254 kg General: [Patient awake, alert and oriented times 3. Patient in no acute distress. Morbidly obese HEENT: [PERRL. EOMI. No pharyngeal erythema or exudate.] Neck: [No adenopathy.] Cardiac: [Heart regular in rate and rhythm. No S3. No S4. No clicks, rubs. No murmur.] Lungs: [Clear to auscultation bilaterally. But diminished Abdomen: [No mass. No organomegaly. Bowel sounds presnt and normoactive in all 4 quadrants.] Extremes: [No edema no cyanosis no claudication normal pulses] : Normal female genitalia Musculoskeletal: [No joint erythema, edema or tenderness.] Skin: [No rash.] Neurologic: [No lateralizing deficits. CN II - XII grossly intact.] Lymphatic: [No adenopathy.] Results CBC & Chem 7: 01/31/25 11:17 02/01/25 06:19 Labs: Abnormal Lab Results - Last 24 Hours (Table) 01/31/25 01/31/25 01/31/25 Range/Units 11:17 11:23 23:32 RBC 5.21 H (4.10-5.20) 10*6/uL Hgb 15.3 H (12.0-15.0) g/dL Neutrophils # 7.98 H (1.80-7.70) 10*3/uL Lymphocytes # 0.86 L (0.90-5.00) 10*3/uL Eosinophils # 0.00 L (0.04-0.35) 10*3/uL Potassium 3.4 L 3.3 L (3.5-5.1) mmol/L BUN 21 H (7-17) mg/dL Glucose 141 H (74-99) mg/dL Assessment and Plan (1) Viral gastroenteritis Current Visit: Yes Status: Acute Code(s): A08.4 - VIRAL INTESTINAL INFECTION, UNSPECIFIED SNOMED Code(s): 973218074 (2) Acute vomiting Current Visit: Yes Status: Acute Code(s): R11.10 - VOMITING, UNSPECIFIED SNOMED Code(s): 49000016 (3) Weakness Current Visit: Yes Status: Acute Code(s): R53.1 - WEAKNESS SNOMED Code(s): 51956021 (4) Abdominal pain Current Visit: No Status: Acute Code(s): R10.9 - UNSPECIFIED ABDOMINAL PAIN SNOMED Code(s): 53120661 (5) Acute on chronic systolic (congestive) heart failure Current Visit: No Status: Acute Code(s): I50.23 - ACUTE ON CHRONIC SYSTOLIC (CONGESTIVE) HEART FAILURE SNOMED Code(s): 795919148 (6) Presence of stent in LAD coronary artery Current Visit: No Status: Acute Code(s): Z95.5 - PRESENCE OF CORONARY ANGIOPLASTY IMPLANT AND GRAFT SNOMED Code(s): 127866569356040 (7) Presence of stent in LAD coronary artery Current Visit: No Status: Acute Code(s): Z95.5 - PRESENCE OF CORONARY ANGIOPLASTY IMPLANT AND GRAFT SNOMED Code(s): 039663043865071 (8) Unstable angina pectoris Current Visit: No Status: Acute Code(s): I20.0 - UNSTABLE ANGINA SNOMED Code(s): 5775471 (9) Valvular heart disease Current Visit: No Status: Acute Code(s): I38 - ENDOCARDITIS, VALVE UNSPECIFIED SNOMED Code(s): 993931 Plan: Vomiting has resolved Patient is rehydrated Will discharge home today with follow-up on Monday in the office Continue clear liquids advance diet as tolerated Stop smoking Time with Patient: Greater than 30
[2025-02-01] MEDS: SPIRONOLACTONE 25 MG TAB PO SCH (10:08)
[2025-02-02] MEDS ORDERED: NON FORMULARY DRUG (Alendronate Sodium [Alendronate Sodium] 70 MG Tablet) PO SCH (17:38)
[2025-02-03] MEDS ORDERED: metOLazone 2.5 MG TAB PO SCH (09:00)
== END 2025-02-01 10:44 | disposition home or self-care (01) ==
LOC: EC 09:53 → 6NMEDSUR 13:19
PROVIDERS: ADMIT Family Medicine; ATTEND Family Medicine
DX: A08.4 Viral intestinal infection, unspecified (principal); I11.0 Hypertensive heart disease with heart failure; I50.23 Acute on chronic systolic (congestive) heart failure; I25.5 Ischemic cardiomyopathy; I25.110 Atherosclerotic heart disease of native coronary artery with unstable angina pectoris; I38 Endocarditis, valve unspecified; I25.2 Old myocardial infarction; M79.7 Fibromyalgia; E78.5 Hyperlipidemia, unspecified; F31.9 Bipolar disorder, unspecified; F41.9 Anxiety disorder, unspecified; J44.89 Other specified chronic obstructive pulmonary disease; M81.0 Age-related osteoporosis without current pathological fracture; K21.9 Gastro-esophageal reflux disease without esophagitis; Z79.01 Long term (current) use of anticoagulants; Z79.02 Long term (current) use of antithrombotics/antiplatelets; Z79.82 Long term (current) use of aspirin; Z79.84 Long term (current) use of oral hypoglycemic drugs; Z79.899 Other long term (current) drug therapy; Z95.5 Presence of coronary angioplasty implant and graft; Z95.1 Presence of aortocoronary bypass graft; Z95.810 Presence of automatic (implantable) cardiac defibrillator; Z88.1 Allergy status to other antibiotic agents; Z87.891 Personal history of nicotine dependence
CPT/HCPCS: 96361; 96374; 99285; 36415; 94640; 93005; 83880; 80053; 83605; 83735; 84132 ×2; 84484; 85025; 85610; 85730; 71046; G0378 ×2; J2405